=== PATIENT | female | born 1980 | race Caucasian/White ===

== ENCOUNTER 2016-09-26 18:58 | Emergency (ER) | payer BC, OTHER ==
[~2016-09-26] VITALS: Ht 172.7 cm; Wt 55.0 kg
[~2016-09-26 18:58] MED LIST: CITA20TA9 PO; HYDR-5688 PO; LEVAAER2 INH; MULTTAB58 PO; PRT40 PO; VLTG EXT
[2016-09-26 19:04] VITALS: TEMP 37; Ht 172.7 cm; Wt 55.0 kg
[2016-09-26] MEDS ORDERED: XYLOCAINE 1%/SOD BICARB 20 ML VIAL INFIL ONE (19:30)
[2016-09-26] MEDS ORDERED: BUPIVACAINE 0.5 % 5 MG/1 ML MPF 30ML VIAL INFIL ONE (19:30)
[2016-09-26] MEDS ORDERED: AMPICILLIN/SULBACTAM SOD INJ 3,000 MG in SODIUM CHLORIDE 0.9% 100ML 100 ML IV ONE (19:30)
[2016-09-26] MEDS ORDERED: MoRPHine SULFATE 4 MG/ML 1 ML CARP\\VIAL IV STA (19:35)
[2016-09-26 20:00] LABS: BUN/CREATININE RATIO 9.1 (10-20); CALCIUM 8.6 mg/dl (8.5-10.1); CREATININE 0.92 mg/dl (0.60-1.20); POTASSIUM 3.6 mmol/L (3.5-5.1)
[2016-09-26] MEDS ORDERED: CLB/200 PO (20:00)
--- NOTE | 2016-09-26 20:13 | EMERGENCY ROOM VISIT NOTE ---
ED Visit Note First contact with patient: 19:08 Patient evaluated with PA. Mild cellulitis noted proximal to the nailbed concerning for possible paronychia. Plan outpatient management with Augmentin thus far. Agree with plan for I&D and subsequent outpt tx doxycycline.
[2016-09-26 20:15] LABS: COMPLETE YES; EOSINOPHIL % 4.4 %; HEMATOCRIT 36.6 % (37-47); LYMPH ABS # 1.23 K/uL (1.2-3.4); LYMPHOCYTE % 37.7 %; MEAN CELL VOLUME 77.7 fL (80-100); MEAN CORPUSCULAR HEMOGLOBIN 27.6 pg (25-34); MEAN CORPUSCULAR HGB CONC 35.5 g/dl (32-36); MEAN PLATELET VOLUME 10.5 fL (7.4-10.4); NEUTROPHILS % 37.7 %; PLATELET COUNT 86 K/uL (130-400); RED BLOOD COUNT 4.71 M/uL (4.2-5.4); VARIANT LYM ABS # 0.52 K/uL; VARIANT LYMPHOCYTE % 15.8 %; WHITE BLOOD COUNT 3.27 K/uL (4.8-10.8)
--- NOTE | 2016-09-26 20:23 | EMERGENCY ROOM VISIT NOTE ---
History First contact with patient: 19:08 Chief Complaint: WOUND INFECTION Stated Complaint: SEVERE PAIN IN L BIG TOE Nursing Triage Summary: Pt reports left great toe pain, redness and discharge. Pt states she has been taking Augmentin x 6 days. Pt denies red streaks. Denies fever/chills "more than normal". Pt reports hx of Crohn's, has an ostomy. History of Present Illness The patient is a 36 year old female who presents to the Emergency Room with complaints of an infection in her left great toe. The patient states that the toe has been "bad for a while." She states that she saw her primary care provider one week ago for redness in the toe and he started her on Augmentin. She states that the pain increased today and she noticed that the toe was more swollen than normal. She did call a shelter case manager today, but was unable to make an appointment for today, so she came here for evaluation. She rates her current discomfort a 10/10. She does report there has been a small amount of puslike drainage from the toe. She denies any fevers or red streaking up the foot or leg. Review of Systems A complete 10-point Review of Systems was discussed with the patient, with pertinent positives and negatives listed in the History of Present Illness. All remaining Review of Systems questions can be considered negative unless otherwise specified. Past Medical/Surgical History Medical Problems: (1) Colorectal cancer (2) Crohn's colitis (3) Endometriosis (4) Fibromyalgia (5) Ileostomy in place (6) Ileostomy in place (7) Migraine (8) Raynauds disease Surgical Problems: (1) H/O colonoscopy (2) H/O esophagogastroduodenoscopy (3) H/O laparoscopy (4) H/O total colectomy Family History Diabetes mellitus FH: depression FH: heart disease FHx: cancer FHx: gallbladder disease Hypertension Social History Smoking Status: Never Smoker Alcohol Use: occasionally Drug Use: none Marital Status: Occupation Status: disabled Current/Historical Medications Scheduled Amoxicillin & Pot Clavulanate (Augmentin Xr), 2 TABS PO DAILY Celecoxib (CeleBREX), 200 MG PO BID Doxycycline Hyclate (Vibramycin), 100 MG PO BID Fluoxetine Hcl (Prozac), 20 MG PO HS Fluticasone Propionate (Nasal) (Flonase Allergy Relief ), 2 SPRAYS ROSARIO DAILY Levalbuterol Tartrate (Levalbuterol Tartrate Hfa), 2 PUFF INH Q6H Montelukast Sodium (Singulair), 10 MG PO DAILY Multiple Vitamins W/ Minerals (Airborne Gummies), 3 TABS PO UD Pantoprazole (Protonix), 40 MG PO BID Pentosan Polysulfate Sodium (Elmiron), 300 MG PO BID Pseudoephedrine-Guaifenesin (Mucinex D), 1 TAB PO BID Topiramate (Topamax), 100 MG PO BID Scheduled PRN Acetaminophen-Caffeine (Excedrin Tension Headache), 1 TAB PO UD PRN for Headache Baclofen (Lioresal), 10 MG PO TID PRN for Hiccups Levalbuterol Tartrate (Levalbuterol Tartrate Hfa), 2 PUFFS INH UD PRN for Asthma Symptoms Lorazepam (Ativan), 0.5 MG PO TID PRN for Anxiety Morphine Sulfate (Morphine Sulfate Ir), 15 MG PO Q8 PRN for Pain Prochlorperazine Maleate (Compazine), 10 MG PO TID PRN for Nausea Allergies Coded Allergies: Clarithromycin (Verified Allergy, Severe, breathing problems, 04/02/16) Hydromorphone (Verified Allergy, Intermediate, RASH, 04/02/16) pt sasy she is allergic Ondansetron (Verified Allergy, Intermediate, itching, 04/02/16) Peanut (Verified Allergy, Intermediate, Rash and itchiness, 09/26/16) Hydroxyzine (Verified Allergy, Mild, itching, 04/02/16) Adhesives (Verified Allergy, Unknown, itching, swelling, 04/02/16) Albuterol (Verified Allergy, Unknown, rash, 04/02/16) BEE STING (Unverified Allergy, Unknown, anaphylaxis, 04/02/16) Latex (Verified Allergy, Unknown, itching, swelling, 04/02/16) Oxycodone (Verified Allergy, Unknown, itching, 04/02/16) Barium Sulfate (Verified Adverse Reaction, Unknown, diarrhea, 04/02/16) Lobster (Verified Adverse Reaction, Unknown, nausea, diarrhea, 04/02/16) Pregabalin (Verified Adverse Reaction, Unknown, delusions, 04/02/16) Uncoded Allergies: SPLENDA (Allergy, Unknown, Nausea/Vomiting, 09/26/16) Physical Exam Vital Signs Date Time Temp Pulse Resp B/P Pulse Ox O2 Delivery O2 Flow Rate FiO2 09/26/16 20:35 88 18 101/73 99 Room Air 09/26/16 19:04 37.0 100 18 99/75 97 Room Air Physical Exam VITALS: Vitals are noted on the nurse's note and reviewed by myself. Vital signs stable. GENERAL: This is a 36-year-old female, in no acute distress, nondiaphoretic, well-developed well-nourished. HEART: Regular rate and rhythm without murmurs gallops or rubs. LUNGS: Clear to auscultation bilaterally without wheezes, rales or rhonchi. EXTREMITIES: There is an area of fluctuance and erythema just proximal to the left great toenail. It is very tender to touch. No lymphangitic streaking. NEURO: Patient was alert and oriented to person place and time. Normal sensation to light and sharp touch. Medical Decision & Procedures Laboratory Results 09/26/16 19:38 Red Blood Count 4.71, Mean Corpuscular Volume 77.7, Mean Corpuscular Hemoglobin 27.6, Mean Corpuscular Hemoglobin Concent 35.5, Mean Platelet Volume 10.5 09/26/16 19:38 Test 09/26/16 19:38 White Blood Count 3.27 K/uL (4.8-10.8) Red Blood Count 4.71 M/uL (4.2-5.4) Hemoglobin 13.0 g/dL (12.0-16.0) Hematocrit 36.6 % (37-47) Mean Corpuscular Volume 77.7 fL (80-100) Mean Corpuscular Hemoglobin 27.6 pg (25-34) Mean Corpuscular Hemoglobin Concent 35.5 g/dl (32-36) Platelet Count 86 K/uL (130-400) Mean Platelet Volume 10.5 fL (7.4-10.4) RDW Standard Deviation 39.0 fL (36.4-46.3) RDW Coefficient of Variation 13.7 % (11.5-14.5) Neutrophils % (Manual) 37.7 % Lymphocytes % (Manual) 37.7 % Variant Lymphocytes % (manual) 15.8 % Monocytes % (Manual) 4.4 % Eosinophils % (Manual) 4.4 % Neutrophils # (Manual) 1.23 K/uL (1.4-6.5) Total Absolute Neutrophils 1.23 K/uL (1.4-6.5) Lymphocytes # (Manual) 1.23 K/uL (1.2-3.4) Absolute Variant Lymphocytes 0.52 K/uL Total Absolute Lymphocytes 1.75 K/uL (1.2-3.4) Monocytes # (Manual) 0.14 K/uL (0.11-0.59) Eosinophils # (Manual) 0.14 K/uL (0-0.5) Red Blood Cell Morphology Unremarkable Anion Gap 10.0 mmol/L (3-11) Est Creatinine Clear Calc Drug Dose 72.7 ml/min Estimated GFR () 92.2 Estimated GFR (Non- 79.5 BUN/Creatinine Ratio 9.1 (10-20) Calcium Level 8.6 mg/dl (8.5-10.1) Medications Administered Medications (Trade) Dose Ordered Sig/Tamar Route Start Time Stop Time Status Last Admin Dose Admin Ampicillin Sodium/ Sulbactam Sodium/ Sodium Chloride (Unasyn Inj/Nss 100ml) 108 ml @ 200 mls/hr ONE ONCE IV 09/26/16 19:30 09/26/16 20:02 DC 09/26/16 19:49 200 MLS/HR Morphine Sulfate (MoRPHine SULFATE INJ) 4 mg NOW STAT IV 09/26/16 19:35 09/26/16 19:37 DC 09/26/16 19:50 4 MG Doxycycline Hyclate (Vibramycin Cap) 100 mg ONE ONCE PO 09/26/16 20:30 09/26/16 20:31 DC 09/26/16 20:35 100 MG Procedure Verbal consent was obtained to perform the procedure. 6 mL of a 1-1 solution of Marcaine and 1% buffered lidocaine were used to perform a digital block of the left great toe. The area of fluctuance of the toe with cleaned with Betadine. An 11 blade was then used to make a 1 cm incision to drain the paronychia. A small amount of white pus was expressed and a culture was obtained. More was expressed with pressure until all of the pus was relieved. The area was thoroughly cleaned with sterile saline. The area was then dressed with bacitracin and a bandage. The patient tolerated the procedure well. Medical Decision Differential diagnosis includes paronychia, ingrown toenail, among others. The patient was evaluated as above. She was given 4 mg morphine IV for pain. She has a paronychia of the left great toe. She has been taking Augmentin as an outpatient with no relief. Incision and drainage was performed as noted in the procedure section. Culture is pending. She was given one dose of Unison here but will be switched to doxycycline as an outpatient at Dr Vernon's recommendation. She will follow-up with a protracted as for further evaluation. She verbalized understanding and was discharged home in good condition. The patient was independently evaluated by Dr. Vernon, ED attending physician, who agreed with my assessment and treatment plan. Impression Primary Impression: Paronychia of toe of left foot Departure Information Dispostion Home / Self-Care Condition GOOD Prescriptions Levalbuterol Tartrate (Levalbuterol Tartrate Hfa) 45 Mcg/Act Aer 2 PUFF INH Q6H, #1 INHALER Prov: Michelle Wallace PA-C 09/26/16 Doxycycline Hyclate (VIBRAMYCIN) 100 Mg Cap 100 MG PO BID for 10 Days, #20 CAP Prov: Michelle Wallace .SAUL 09/26/16 Referrals Bao Farrell M.D. (PCP) Patient Instructions My [facility] Additional Instructions You were prescribed doxycycline to be taken twice daily as prescribed. This is an antibiotic. All antibiotics have the potential to cause diarrhea. Stop this medication and contact a medical provider if you were to develop any significant adverse side effects including: wheezing, shortness of breath, passing out, vomiting, or a diffuse rash. Always take antibiotics as directed and COMPLETE the ENTIRE course regardless of the improvement of your symptoms. For pain control, you can use the following [id number] medicines (if >12 yo): - Regular strength (325mg/tab) Tylenol (acetaminophen) 2 tabs every 4-6 hours as needed. Do not exceed 12 tablets in a 24 hour period. Avoid taking more than 4 grams (4000 mg) of Tylenol per day. This includes any other sources of acetaminophen you may take on a regular basis. - Regular strength (200 mg/tab) Advil (ibuprofen) 1-2 tabs every 4-6 hours as needed. Do not exceed a dose of 3200 mg per day. Follow-up with your primary care provider for further evaluation. Return to the emergency department with worsening pain, fevers, streaking up the leg or any other new/concerning symptoms.
[2016-09-26] MEDS ORDERED: AGMXR/1000 PO (20:26)
[2016-09-26] MEDS ORDERED: DOXYCYCLINE HYCLATE 100 MG CAP PO ONE (20:30)
[2016-09-26 20:35] VITALS: BP 101/73; PULSE 88; O2SAT 99
[2016-09-26] MEDS ORDERED: DOXY100C PO (20:35)
[2016-09-26] MEDS ORDERED: LEVA45AE INH (20:42)
[2017-01-03] MEDS ORDERED: LCTX PO (13:59)
[2017-01-03] MEDS ORDERED: MAGIC1 PO (13:59)
[2017-01-03] MEDS ORDERED: LVQ250 PO (13:59)
[2017-04-01] MEDS ORDERED: LDDP5 EX (19:50)
[2017-04-16] MEDS ORDERED: PENT100C6 PO (01:35)
[2017-04-16] MEDS ORDERED: MONT1TAB3 PO (01:36)
[2017-04-16] MEDS ORDERED: TOPI100T20 PO (01:38)
[2017-04-16] MEDS ORDERED: BUDE3CAP14 PO (13:05)
[2017-04-16] MEDS ORDERED: LORA-741 PO (14:00)
[2017-04-16] MEDS ORDERED: CLR10 PO (16:58)
[2017-04-16] MEDS ORDERED: FLUO40CA8 PO (16:58)
[2017-04-16] MEDS ORDERED: FLUT1SPR12 NAE (18:48)
[2017-04-16] MEDS ORDERED: ACETTAB14 PO (18:52)
[2017-04-16] MEDS ORDERED: BACL1TAB PO (18:52)
[2017-04-16] MEDS ORDERED: FLUO20CA34 PO (20:26)
[2017-04-16] MEDS ORDERED: PROC1TAB5 PO (20:26)
[2017-04-16] MEDS ORDERED: PANT1TAB48 PO (20:26)
[2017-04-16] MEDS ORDERED: MORP15TA PO (20:26)
[2017-04-16] MEDS ORDERED: LEVA45AE INH (20:30)
[2017-04-19] MEDS ORDERED: DFL100 PO (17:19)
[2017-04-19] MEDS ORDERED: RCPAV1 IV (17:19)
== END 2016-09-26 20:45 | disposition home or self-care (01) ==
LOC: C.EDB 18:59 → C.EDD 20:45
DX: L03.032 Cellulitis of left toe (principal); K50.90 Crohn's disease, unspecified, without complications; N80.9 Endometriosis, unspecified; M79.7 Fibromyalgia; Z93.2 Ileostomy status; G43.909 Migraine, unspecified, not intractable, without status migrainosus; I73.00 Raynaud's syndrome without gangrene; Z79.899 Other long term (current) drug therapy

== ENCOUNTER 2016-12-11 15:24 | Emergency (ER) | payer BC, OTHER ==
[~2016-12-11] VITALS: Ht 172.7 cm; Wt 49.8 kg
[~2016-12-11 15:24] MED LIST changes: +AGMXR/1000 PO; -CITA20TA9 PO; +CLB/200 PO; -HYDR-5688 PO; +LEVA45AE INH; -LEVAAER2 INH; -MULTTAB58 PO; -PRT40 PO; -VLTG EXT
[2016-12-11 15:43] VITALS: TEMP 36.8; Ht 172.7 cm; Wt 49.8 kg
[2016-12-11] MEDS ORDERED: SODIUM CHLORIDE 0.9% 1000ML 1,000 ML IV STA (16:16)
[2016-12-11] MEDS ORDERED: MoRPHine SULFATE 4 MG/ML 1 ML CARP\\VIAL IV STA ×2 (16:16→17:43)
[2016-12-11 16:46] LABS: HEMATOCRIT 43.3 % (37-47); MEAN CELL VOLUME 83.3 fL (80-100); MEAN CORPUSCULAR HEMOGLOBIN 27.7 pg (25-34); MEAN CORPUSCULAR HGB CONC 33.3 g/dl (32-36); WHITE BLOOD COUNT 4.06 K/uL (4.8-10.8)
--- NOTE | 2016-12-11 17:10 | DIAGNOSTIC IMAGING REPORT ---
PA CHEST RADIOGRAPH AND UPRIGHT AND SUPINE AP RADIOGRAPHS OF THE ABDOMEN CLINICAL HISTORY: Epigastric abdominal pain. COMPARISON STUDY: CT of the abdomen and pelvis April 02, [address] January 17, 2016. FINDINGS: Lung volumes are normal. No consolidation is identified and there is no evidence for pulmonary edema. No pneumothorax or pleural effusion is present. Cardiomediastinal silhouette is normal. There is no free air. There is mild dextroscoliosis of the lumbar spine. A right lower quadrant ostomy is noted. No dilated loops of bowel are identified by radiography. IMPRESSION: 1. No free air or radiographic evidence of a bowel obstruction. 2. No acute cardiopulmonary findings. Electronically signed by: Solomon Manriquez M.D. 12/11/2016 5:08 PM Dictated Date/Time: 12/11/2016 5:06 PM
[2016-12-11 17:11] LABS: URINE APPEARANCE CLOUDY (CLEAR); URINE BILIRUBIN NEG (NEG); URINE COLOR DK YELLOW; URINE EPITHELIAL CELL AUTO 0-5 /lpf (0-5); URINE NITRITE POS (NEG); UROBILINOGEN NEG (NEG); ZZUR CULT IF INDIC CLEAN CATCH YES
[2016-12-11 17:11] LABS: BUN/CREATININE RATIO 12.1 (10-20); CALCIUM 8.9 mg/dl (8.5-10.1); CREATININE 1.2 mg/dl (0.60-1.20); POTASSIUM 3.6 mmol/L (3.5-5.1)
[2016-12-11 17:14] LABS: ALB/GLOB RATIO 1.4 (0.9-2)
[2016-12-11 17:19] LABS: MANUAL MICROSCOPIC REQUIRED? NO; REVIEW REQ? NO
--- NOTE | 2016-12-11 17:37 | DIAGNOSTIC IMAGING REPORT ---
ABDOMINAL ULTRASOUND, RIGHT UPPER QUADRANT HISTORY: Epigastric abdominal pain.. COMPARISON: CT of the abdomen and pelvis April 02, 2016 and right upper quadrant ultrasound January 16, 2016. FINDINGS: There is no biliary ductal dilatation. There is possible slight coarsening of hepatic echotexture. There is no gallbladder wall thickening. No shadowing gallstones are identified. A nonmobile 5 m structure within the gallbladder is unchanged and suggests a polyp. The pancreatic body is normal. The head and tail are partially obscured. There is no right hydronephrosis. IMPRESSION: 1. No gallstones or biliary ductal dilatation. 2. No change in a suspected 5 mm gallbladder polyp. Electronically signed by: Solomon Manriquez M.D. 12/11/2016 5:35 PM Dictated Date/Time: 12/11/2016 5:33 PM
[2016-12-11 17:43] LABS: PLATELET COUNT 78 K/uL (130-400)
[2016-12-11] MEDS ORDERED: NITROFURANTOIN MONOHYDRATE 100 MG CAP PO ONE (17:45)
[2016-12-11 17:46] LABS: BASO % 0.5 %; BASO ABS # 0.02 K/uL (0-0.2); COMPLETE YES; EOS % 2.5 %; LYMPH % 41.1 %; LYMPH ABS # 1.67 K/uL (1.2-3.4); MEAN PLATELET VOLUME 10.2 fL (7.4-10.4); MONO % 6.4 %; NEUT % 49.5 %
[2016-12-11] MEDS ORDERED: NITR-5 PO (17:59)
--- NOTE | 2016-12-11 17:59 | EMERGENCY ROOM VISIT NOTE ---
History First contact with patient: 15:47 Chief Complaint: ABDOMINAL PAIN Stated Complaint: STOMACH PAIN, PAIN BEHIND STOMA Nursing Triage Summary: pt has a colostomy with hx of colon ca. pain worsening since saturday, with nausea and diarrhea History of Present Illness The patient is a 36 year old female who presents to the Emergency Department by private vehicle with multiple complaints. She reports a history of colectomy secondary to colon surgery. She has a history of chronic abdominal pain since. She takes oral morphine daily. She has been using her morphine, however her symptoms have not been improving. The pain is in the same location, only the intensity has worsened. She reports that she has had some watery diarrhea from her ostomy as well. In addition, the patient reports that she noticed blood with wiping. She reports no pain or burning with urination, however. She reports no significant history of urinary tract infections. The patient is had no fevers or chills. There is been no nausea or vomiting. She rates her current discomfort as an 8/10. She denies any chest pain, palpitations, short of breath, hematemesis, hematochezia or melena. Review of Systems A complete 10-point Review of Systems was discussed with the patient, with pertinent positives and negatives listed in the History of Present Illness. All remaining Review of Systems questions can be considered negative unless otherwise specified. Past Medical/Surgical History Medical Problems: (1) Colorectal cancer (2) Crohn's colitis (3) Endometriosis (4) Fibromyalgia (5) Ileostomy in place (6) Ileostomy in place (7) Migraine (8) Raynauds disease Surgical Problems: (1) H/O colonoscopy (2) H/O esophagogastroduodenoscopy (3) H/O laparoscopy (4) H/O total colectomy Family History Diabetes mellitus FH: depression FH: heart disease FHx: cancer FHx: gallbladder disease Hypertension Social History Smoking Status: Never Smoker Alcohol Use: occasionally Drug Use: none Marital Status: Occupation Status: disabled Current/Historical Medications Scheduled Fluoxetine (Prozac), 40 MG PO HS Fluoxetine Hcl (Prozac), 20 MG PO HS Fluticasone Propionate (Nasal) (Flonase Allergy Relief ), 2 SPRAYS ROSARIO DAILY Loratadine (Claritin), 10 MG PO DAILY Montelukast Sodium (Singulair), 10 MG PO DAILY Multiple Vitamins W/ Minerals (Airborne Gummies), 3 TABS PO UD Nitrofurantoin Monohyd Macrocr (Macrobid), 100 MG PO BID Pantoprazole (Protonix), 40 MG PO BID Pentosan Polysulfate Sodium (Elmiron), 300 MG PO BID Topiramate (Topamax), 100 MG PO BID Scheduled PRN Acetaminophen-Caffeine (Excedrin Tension Headache), 1 TAB PO UD PRN for Headache Baclofen (Lioresal), 10 MG PO TID PRN for Hiccups Levalbuterol Tartrate (Levalbuterol Tartrate Hfa), 2 PUFFS INH UD PRN for Asthma Symptoms Lorazepam (Ativan), 0.5 MG PO TID PRN for Anxiety Morphine Sulfate (Morphine Sulfate Ir), 15 MG PO Q8 PRN for Pain Prochlorperazine Maleate (Compazine), 10 MG PO TID PRN for Nausea Pseudoephedrine-Guaifenesin (Mucinex D), 1 TAB PO BID PRN for CONGESTION Allergies Coded Allergies: Clarithromycin (Verified Allergy, Severe, breathing problems, 12/11/16) Hydromorphone (Verified Allergy, Intermediate, RASH, 12/11/16) pt sasy she is allergic Ondansetron (Verified Allergy, Intermediate, itching, 12/11/16) Peanut (Verified Allergy, Intermediate, Rash and itchiness, 12/11/16) Hydroxyzine (Verified Allergy, Mild, itching, 12/11/16) Adhesives (Verified Allergy, Unknown, itching, swelling, 12/11/16) Albuterol (Verified Allergy, Unknown, rash, 12/11/16) BEE STING (Unverified Allergy, Unknown, anaphylaxis, 12/11/16) Latex (Verified Allergy, Unknown, itching, swelling, 12/11/16) Oxycodone (Verified Allergy, Unknown, itching, 12/11/16) Barium Sulfate (Verified Adverse Reaction, Unknown, diarrhea, 12/11/16) Lobster (Verified Adverse Reaction, Unknown, nausea, diarrhea, 12/11/16) Pregabalin (Verified Adverse Reaction, Unknown, delusions, 12/11/16) Uncoded Allergies: SPLENDA (Allergy, Unknown, Nausea/Vomiting, 09/26/16) Physical Exam Vital Signs Date Time Temp Pulse Resp B/P Pulse Ox O2 Delivery O2 Flow Rate FiO2 12/11/16 18:12 65 90/54 100 Room Air 12/11/16 15:43 36.8 72 16 107/73 97 Room Air Pain Rating (0-10): 8 Physical Exam VITAL SIGNS - Vital signs and nursing notes were reviewed. GENERAL - 36-year-old female appearing older than her stated age who is in no acute distress. Communicates well with provider and answers questions appropriately. LUNGS - Chest wall symmetric without accessory muscle use, intercostals retractions, or central cyanosis. Normal vesicular breath sounds CTA B/L. No wheezes, rales, or rhonchi appreciated. CARDIAC - RRR with S1/S2. No murmur, rubs, or gallops appreciated. ABDOMEN - Abdominal contour flat and without pulsations or visible masses. Ostomy site in place. BS distant all four quadrants. Mild tenderness to palpation appreciated in the epigastrium. No guarding. No Rebound Tenderness. Negative Rovsing's. Negative Randolph's. No palpable masses, hepatosplenomegaly, or ascites noted. PSYCH - A&Ox3 and cooperates fully with examiner. Pt is very pleasant and interacts well with examiner. Medical Decision & Procedures ER Provider Diagnostic Interpretation: Radiological imaging and reports were reviewed by myself. Radiologist's Interpretation as follows: PA CHEST RADIOGRAPH AND UPRIGHT AND SUPINE AP RADIOGRAPHS OF THE ABDOMEN CLINICAL HISTORY: Epigastric abdominal pain. COMPARISON STUDY: CT of the abdomen and pelvis April 02, [address] January 17, 2016. FINDINGS: Lung volumes are normal. No consolidation is identified and there is no evidence for pulmonary edema. No pneumothorax or pleural effusion is present. Cardiomediastinal silhouette is normal. There is no free air. There is mild dextroscoliosis of the lumbar spine. A right lower quadrant ostomy is noted. No dilated loops of bowel are identified by radiography. IMPRESSION: 1. No free air or radiographic evidence of a bowel obstruction. 2. No acute cardiopulmonary findings. ABDOMINAL ULTRASOUND, RIGHT UPPER QUADRANT HISTORY: Epigastric abdominal pain.. COMPARISON: CT of the abdomen and pelvis April 02, 2016 and right upper quadrant ultrasound January 16, 2016. FINDINGS: There is no biliary ductal dilatation. There is possible slight coarsening of hepatic echotexture. There is no gallbladder wall thickening. No shadowing gallstones are identified. A nonmobile 5 m structure within the gallbladder is unchanged and suggests a polyp. The pancreatic body is normal. The head and tail are partially obscured. There is no right hydronephrosis. IMPRESSION: 1. No gallstones or biliary ductal dilatation. 2. No change in a suspected 5 mm gallbladder polyp. Laboratory Results 12/11/16 16:12 Red Blood Count 5.20, Mean Corpuscular Volume 83.3, Mean Corpuscular Hemoglobin 27.7, Mean Corpuscular Hemoglobin Concent 33.3, Mean Platelet Volume 10.2, Neutrophils (%) (Auto) 49.5, Lymphocytes (%) (Auto) 41.1, Monocytes (%) (Auto) 6.4, Eosinophils (%) (Auto) 2.5, Basophils (%) (Auto) 0.5, Neutrophils # (Auto) 2.01, Lymphocytes # (Auto) 1.67, Monocytes # (Auto) 0.26, Eosinophils # (Auto) 0.10, Basophils # (Auto) 0.02 12/11/16 16:12 Test 12/11/16 16:12 12/11/16 16:30 White Blood Count 4.06 K/uL (4.8-10.8) Red Blood Count 5.20 M/uL (4.2-5.4) Hemoglobin 14.4 g/dL (12.0-16.0) Hematocrit 43.3 % (37-47) Mean Corpuscular Volume 83.3 fL (80-100) Mean Corpuscular Hemoglobin 27.7 pg (25-34) Mean Corpuscular Hemoglobin Concent 33.3 g/dl (32-36) Platelet Count 78 K/uL (130-400) Mean Platelet Volume 10.2 fL (7.4-10.4) Neutrophils (%) (Auto) 49.5 % Lymphocytes (%) (Auto) 41.1 % Monocytes (%) (Auto) 6.4 % Eosinophils (%) (Auto) 2.5 % Basophils (%) (Auto) 0.5 % Neutrophils # (Auto) 2.01 K/uL (1.4-6.5) Lymphocytes # (Auto) 1.67 K/uL (1.2-3.4) Monocytes # (Auto) 0.26 K/uL (0.11-0.59) Eosinophils # (Auto) 0.10 K/uL (0-0.5) Basophils # (Auto) 0.02 K/uL (0-0.2) RDW Standard Deviation 45.4 fL (36.4-46.3) RDW Coefficient of Variation 14.8 % (11.5-14.5) Immature Granulocyte % (Auto) 0.0 % Immature Granulocyte # (Auto) 0.00 K/uL (0.00-0.02) Red Blood Cell Morphology Unremarkable Anion Gap 8.0 mmol/L (3-11) Est Creatinine Clear Calc Drug Dose 50.5 ml/min Estimated GFR () 66.9 Estimated GFR (Non- 57.7 BUN/Creatinine Ratio 12.1 (10-20) Calcium Level 8.9 mg/dl (8.5-10.1) Total Bilirubin 0.6 mg/dl (0.2-1) Aspartate Amino Transf (AST/SGOT) 14 U/L (15-37) Alanine Aminotransferase (ALT/SGPT) 42 U/L (12-78) Alkaline Phosphatase 122 U/L (45-117) Total Protein 7.3 gm/dl (6.4-8.2) Albumin 4.3 gm/dl (3.4-5.0) Globulin 3.0 gm/dl (2.5-4.0) Albumin/Globulin Ratio 1.4 (0.9-2) Lipase 238 U/L (73-393) Urine Color DK YELLOW Urine Appearance CLOUDY (CLEAR) Urine pH 6.0 (4.5-7.5) Urine Specific [place] 1.010 (1.000-1.030) Urine Protein NEG (NEG) Urine Glucose (UA) NEG (NEG) Urine Ketones NEG (NEG) Urine Occult Blood 2+ (NEG) Urine Nitrite POS (NEG) Urine Bilirubin NEG (NEG) Urine Urobilinogen NEG (NEG) Urine Leukocyte Esterase LARGE (NEG) Urine WBC (Auto) >30 /hpf (0-5) Urine RBC (Auto) 0-4 /hpf (0-4) Urine Hyaline Casts (Auto) 1-5 /lpf (0-5) Urine Epithelial Cells (Auto) 0-5 /lpf (0-5) Urine Bacteria (Auto) 4+ (NEG) Date/Time Source Procedure Growth Status 12/11/16 18:10 Stool C.difficile Toxin B Gene (PCR) - Final No C. difficile toxin B gene detected Complete Medications Administered Medications (Trade) Dose Ordered Sig/Tamar Route Start Time Stop Time Status Last Admin Dose Admin Sodium Chloride (Nss 1000ml) 1,000 ml @ 250 mls/hr Q4H STAT IV 12/11/16 16:16 12/11/16 18:52 DC 12/11/16 16:32 250 MLS/HR Morphine Sulfate (MoRPHine SULFATE INJ) 4 mg NOW STAT IV 12/11/16 16:16 12/11/16 16:18 DC 12/11/16 16:32 4 MG Nitrofurantoin Macrocrystals (Macrobid Cap) 100 mg ONE ONCE PO 12/11/16 17:45 12/11/16 17:46 DC 12/11/16 18:14 100 MG Morphine Sulfate (MoRPHine SULFATE INJ) 4 mg NOW STAT IV 12/11/16 17:43 12/11/16 17:45 DC 12/11/16 18:18 4 MG ED Course Patient was seen and evaluated by myself. Previous emergency department visit notes were reviewed. Labs were drawn, saline lock in place. Urinalysis was obtained. Patient was treated with 4 mg morphine and hydrated with normal saline. X-ray and ultrasounds were obtained. Laboratory results demonstrate no acute leukocytosis, worrisome anemia, or bandemia. The patient has no significant electrolyte abnormalities. Urinalysis concerning for infection. On review previous cultures, the patient's Crohn out Escherichia coli which was sensitive to Macrobid. Laboratory results and imaging studies were reviewed with the patient who acknowledges understanding. She is requesting C. difficile test. She was provided this as well as an additional dose of morphine. She was educated on following up with her primary care provider from today's visit. She was educated on worrisome symptoms for return visit to the emergency department. Patient discharged home in good condition. Medical Decision Given the patient's presentation and stated complaint, I did elect to perform the above-mentioned workup. The patient has a complicated past medical history secondary to multiple surgeries. She has no fever or leukocytosis. Her exam is otherwise unremarkable. Her pain was adequately controlled the emergency department. Patient educated on today's laboratory studies and imaging findings. She was provided initial dose of morphine with complaints of pain. She requests C. difficile testing. Her stoma site was utilized for C. difficile testing which will be pending. She was provided initial dose of Macrobid. She'll follow-up with her primary care provider from today's visit. She will return to the emergency department for any changing or worsening symptoms. Patient discharged home afebrile and in good condition. In the evaluation and treatment of this patient, the following differential diagnoses were considered: UTI, pilonidal for this, hydronephrosis, bowel obstruction, cholecystitis, ascending cholangitis, choledocholithiasis, bowel perforation, amongst others. Impression Primary Impression: Abdominal pain Additional Impression: UTI (urinary tract infection) Departure Information Dispostion Home / Self-Care Condition GOOD Prescriptions Nitrofurantoin Monohyd Macrocr (Macrobid) 100 Mg Cap 100 MG PO BID for 5 Days, #10 CAP Prov: Checo Brito PA-C 12/11/16 Referrals Bao Farrell M.D. (PCP) Patient Instructions My [facility] Additional Instructions You have been treated in the Emergency Department for Abdominal Pain and a Urinary Tract Infection (UTI). You have been prescribed Macrobid to be taken as prescribed. This is an antibiotic. All antibiotics have the potential to cause diarrhea. Stop this medication and contact a medical provider if you were to develop any significant adverse side effects including: wheezing, shortness of breath, passing out, vomiting, or a diffuse rash. Always take antibiotics as directed and COMPLETE the ENTIRE course regardless of the improvement of your symptoms. Continue your pain medications as previously prescribed. Drink plenty of water and stay well hydrated. Follow-up with your primary care provider tomorrow for repeat abdominal exam. Return to the emergency department if your symptoms persist despite treatment plan outlined above or if the following symptoms occur: increased fevers, chills , low back pain, nausea/vomiting, or blood in your urine. Problem Qualifiers Primary Impression: Abdominal pain Abdominal location: upper abdomen, unspecified Qualified Codes: R10.10 - Upper abdominal pain, unspecified Additional Impression: UTI (urinary tract infection) Urinary tract infection type: acute cystitis Hematuria presence: with hematuria Qualified Codes: N30.01 - Acute cystitis with hematuria
[2016-12-11 18:12] VITALS: BP 90/54; PULSE 65; O2SAT 100
[2016-12-11] MEDS ORDERED: PSEU60TA80 PO (20:26)
[2016-12-11] MEDS ORDERED: MULT1CHW44 PO (20:30)
[2017-01-03] MEDS ORDERED: LCTX PO (13:59)
[2017-01-03] MEDS ORDERED: LVQ250 PO (13:59)
[2017-01-03] MEDS ORDERED: MAGIC1 PO (13:59)
[2017-04-01] MEDS ORDERED: LDDP5 EX (19:50)
[2017-04-16] MEDS ORDERED: ACETTAB15 PO (18:52)
[2017-04-19] MEDS ORDERED: DFL100 PO (17:19)
[2017-04-19] MEDS ORDERED: RCPAV1 IV (17:19)
[2017-06-04] MEDS ORDERED: PENT100C6 PO (01:35)
[2017-06-04] MEDS ORDERED: MONT1TAB3 PO (01:36)
[2017-06-04] MEDS ORDERED: TOPI100T20 PO (01:38)
[2017-06-04] MEDS ORDERED: BUDE1CAP6 PO (13:05)
[2017-06-04] MEDS ORDERED: LORA-741 PO (14:00)
[2017-06-04] MEDS ORDERED: CLR10 PO (16:58)
[2017-06-04] MEDS ORDERED: FLUO40CA8 PO (16:58)
[2017-06-04] MEDS ORDERED: FLUT1SPR12 NAE (18:48)
[2017-06-04] MEDS ORDERED: BACL1TAB PO (18:52)
[2017-06-04] MEDS ORDERED: PANT1TAB48 PO (20:26)
[2017-06-04] MEDS ORDERED: PROC1TAB5 PO (20:26)
[2017-06-04] MEDS ORDERED: MORP15TA PO (20:26)
[2017-06-04] MEDS ORDERED: FLUO20CA34 PO (20:26)
[2017-06-04] MEDS ORDERED: LEVA45AE INH (20:30)
== END 2016-12-11 18:49 | disposition home or self-care (01) ==
LOC: C.EDB 15:25
DX: R10.9 Unspecified abdominal pain (principal); N39.0 Urinary tract infection, site not specified; K50.90 Crohn's disease, unspecified, without complications; Z93.2 Ileostomy status; Z98.890 Other specified postprocedural states; Z83.3 Family history of diabetes mellitus; Z81.8 Family history of other mental and behavioral disorders; Z82.49 Family history of ischemic heart disease and other diseases of the circulatory system; Z80.9 Family history of malignant neoplasm, unspecified; Z83.79 Family history of other diseases of the digestive system

== ENCOUNTER 2016-12-23 21:44 | Emergency (ER) | payer BC, OTHER ==
[~2016-12-23] VITALS: Ht 172.7 cm; Wt 50.9 kg
[~2016-12-23 21:44] MED LIST changes: -AGMXR/1000 PO; -CLB/200 PO; -LEVA45AE INH; +MULT1CHW44 PO; +PSEU60TA80 PO
[2016-12-23 21:47] VITALS: Ht 172.7 cm; Wt 50.9 kg
[2016-12-23] MEDS ORDERED: DiphenhydrAMINE HCL 50 MG/ML VIAL IV STA (22:12)
[2016-12-23] MEDS ORDERED: KETOROLAC TROMETHAMINE 30 MG/ML VIAL IV STA (22:12)
[2016-12-23] MEDS ORDERED: SODIUM CHLORIDE 0.9% 1000ML 1,000 ML IV ONE (22:15)
[2016-12-23] MEDS ORDERED: NITR-5 PO (22:18)
[2016-12-23 22:42] LABS: HEMATOCRIT 38.8 % (37-47); MEAN CELL VOLUME 81.5 fL (80-100); MEAN CORPUSCULAR HEMOGLOBIN 27.3 pg (25-34); MEAN CORPUSCULAR HGB CONC 33.5 g/dl (32-36); RED BLOOD COUNT 4.76 M/uL (4.2-5.4); WHITE BLOOD COUNT 3.59 K/uL (4.8-10.8)
[2016-12-23 22:53] LABS: MEAN PLATELET VOLUME 9.3 fL (7.4-10.4); PLATELET COUNT 70 K/uL (130-400)
[2016-12-23 23:00] LABS: BUN/CREATININE RATIO 16.7 (10-20); CREATININE 0.97 mg/dl (0.60-1.20); POTASSIUM 3.9 mmol/L (3.5-5.1)
[2016-12-23 23:03] LABS: ALB/GLOB RATIO 1.8 (0.9-2)
[2016-12-23 23:10] LABS: CALCIUM 8.7 mg/dl (8.5-10.1)
[2016-12-23 23:12] LABS: BASO % 0.3 %; BASO ABS # 0.01 K/uL (0-0.2); COMPLETE YES; EOS % 2.2 %; IG% 0.3 %; MONO % 7.5 %; NEUT % 50.7 %
[2016-12-23 23:29] LABS: URINE APPEARANCE CLEAR (CLEAR); URINE BILIRUBIN NEG (NEG); URINE COLOR ORANGE; URINE NITRITE NEG (NEG); URINE PH 6.5 (4.5-7.5); URINE SPECIFIC GRAVITY 1.008 (1.000-1.030); UROBILINOGEN NEG (NEG); ZZUR CULT IF INDIC CLEAN CATCH NO
[2016-12-23 23:36] LABS: MANUAL MICROSCOPIC REQUIRED? NO; REVIEW REQ? NO
[2016-12-24 00:06] LABS: BENZODIAZEPINE, URINE NEG (NEG); COCAINE,URINE NEG (NEG); PHENCYCLIDINE, URINE NEG (NEG)
[2016-12-24 01:44] VITALS: BP 87/57; PULSE 75; TEMP 36.6; O2SAT 97
--- NOTE | 2016-12-24 02:42 | EMERGENCY ROOM VISIT NOTE ---
ED Visit Note First contact with patient: 21:51 I have personally evaluated and examined this patient. I agree with assessment and plan of Danny Franklin PA-C.
--- NOTE | 2016-12-24 04:44 | EMERGENCY ROOM VISIT NOTE ---
History First contact with patient: 21:51 Chief Complaint: ABDOMINAL PAIN Stated Complaint: SEVERE STOMACH PAIN, BACK PAIN, OSTOMY PROBLEMS Nursing Triage Summary: pt complaint around stoma is sensative and is causing pain History of Present Illness The patient is a 36 year old female who presents to the Emergency Room with complaints of generalized abdominal pain for the past 6-7 days. The patient states that most of her discomfort is around her stoma in the right lower quadrant. The patient has a history of Crohn's disease with colectomy. She has been eating and drinking as normal. She recently completed Macrobid for a UTI. The patient is concerned about C. difficile. She has not had significant increased output from her ostomy, but does complain of itching in the area. She takes oral morphine on a daily basis at home, and states this has not relieved her symptoms. She rates her current discomfort a 7/10. Review of Systems More than 10 systems were reviewed and otherwise negative with the exception of history of present illness. Past Medical/Surgical History Medical Problems: (1) Colorectal cancer (2) Crohn's colitis (3) Endometriosis (4) Fibromyalgia (5) Ileostomy in place (6) Ileostomy in place (7) Migraine (8) Raynauds disease Surgical Problems: (1) H/O colonoscopy (2) H/O esophagogastroduodenoscopy (3) H/O laparoscopy (4) H/O total colectomy Family History Diabetes mellitus FH: depression FH: heart disease FHx: cancer FHx: gallbladder disease Hypertension Social History Smoking Status: Never Smoker Alcohol Use: occasionally Drug Use: none Marital Status: Occupation Status: disabled Current/Historical Medications Scheduled Fluoxetine (Prozac), 40 MG PO HS Fluoxetine Hcl (Prozac), 20 MG PO HS Fluticasone Propionate (Nasal) (Flonase Allergy Relief ), 2 SPRAYS ROSARIO DAILY Loratadine (Claritin), 10 MG PO DAILY Montelukast Sodium (Singulair), 10 MG PO DAILY Multivitamin (Multivitamin), 1 TAB PO DAILY Nitrofurantoin Monohyd Macrocr (Macrobid), 100 MG PO BID Pantoprazole (Protonix), 40 MG PO BID Pentosan Polysulfate Sodium (Elmiron), 300 MG PO BID Topiramate (Topamax), 100 MG PO BID Scheduled PRN Acetaminophen-Caffeine (Excedrin Tension Headache), 1 TAB PO UD PRN for Headache Baclofen (Lioresal), 10 MG PO TID PRN for Hiccups Levalbuterol Tartrate (Levalbuterol Tartrate Hfa), 2 PUFFS INH UD PRN for Asthma Symptoms Lorazepam (Ativan), 0.5 MG PO TID PRN for Anxiety Metoclopramide (Reglan), 1 TAB PO TID PRN for HICCUPS Morphine Sulfate (Morphine Sulfate Ir), 30 MG PO Q8 PRN for Pain Prochlorperazine Maleate (Compazine), 10 MG PO TID PRN for Nausea Allergies Coded Allergies: Clarithromycin (Verified Allergy, Severe, breathing problems, 12/11/16) Hydromorphone (Verified Allergy, Intermediate, RASH, 12/11/16) pt sasy she is allergic Ondansetron (Verified Allergy, Intermediate, itching, 12/11/16) Peanut (Verified Allergy, Intermediate, Rash and itchiness, 12/11/16) Hydroxyzine (Verified Allergy, Mild, itching, 12/11/16) Adhesives (Verified Allergy, Unknown, itching, swelling, 12/11/16) Albuterol (Verified Allergy, Unknown, rash, 12/11/16) BEE STING (Unverified Allergy, Unknown, anaphylaxis, 12/11/16) Latex (Verified Allergy, Unknown, itching, swelling, 12/11/16) Oxycodone (Verified Allergy, Unknown, itching, 12/11/16) Barium Sulfate (Verified Adverse Reaction, Unknown, diarrhea, 12/11/16) Lobster (Verified Adverse Reaction, Unknown, nausea, diarrhea, 12/11/16) Pregabalin (Verified Adverse Reaction, Unknown, delusions, 12/11/16) Uncoded Allergies: SPLENDA (Allergy, Unknown, Nausea/Vomiting, 09/26/16) Physical Exam Vital Signs Date Time Temp Pulse Resp B/P Pulse Ox O2 Delivery O2 Flow Rate FiO2 12/24/16 01:44 36.6 75 87/57 97 12/24/16 00:14 65 98/58 99 Room Air 12/23/16 21:47 36.8 78 18 123/79 100 Room Air Pain Rating (0-10): 0 Physical Exam VITALS: Vitals are noted on the nurse's note and reviewed by myself. Vital signs stable. GENERAL: Well-developed, well-nourished, white female, who is in no acute distress and resting comfortably. Patient is cooperative with the examination. HEAD: Normocephalic atraumatic. HEART: Regular rate and rhythm without murmurs gallops or rubs. LUNGS: Clear to auscultation bilaterally without wheezes, rales or rhonchi. No retractions or accessory muscle use. ABDOMEN: Positive normal bowel sounds x 4. Soft, nontender, without masses or organomegaly. No guarding or rebound tenderness. The ostomy appears well without obvious ulceration or gross infection. MUSCULOSKELETAL: No muscle atrophy, erythema, or edema noted. Full range of motion without joint tenderness in all extremities. Medical Decision & Procedures Laboratory Results 12/23/16 22:31 Red Blood Count 4.76, Mean Corpuscular Volume 81.5, Mean Corpuscular Hemoglobin 27.3, Mean Corpuscular Hemoglobin Concent 33.5, Mean Platelet Volume 9.3, Neutrophils (%) (Auto) 50.7, Lymphocytes (%) (Auto) 39.0, Monocytes (%) (Auto) 7.5, Eosinophils (%) (Auto) 2.2, Basophils (%) (Auto) 0.3, Neutrophils # (Auto) 1.82, Lymphocytes # (Auto) 1.40, Monocytes # (Auto) 0.27, Eosinophils # (Auto) 0.08, Basophils # (Auto) 0.01 12/23/16 22:31 Test 12/23/16 22:31 12/23/16 23:10 White Blood Count 3.59 K/uL (4.8-10.8) Red Blood Count 4.76 M/uL (4.2-5.4) Hemoglobin 13.0 g/dL (12.0-16.0) Hematocrit 38.8 % (37-47) Mean Corpuscular Volume 81.5 fL (80-100) Mean Corpuscular Hemoglobin 27.3 pg (25-34) Mean Corpuscular Hemoglobin Concent 33.5 g/dl (32-36) Platelet Count 70 K/uL (130-400) Mean Platelet Volume 9.3 fL (7.4-10.4) Neutrophils (%) (Auto) 50.7 % Lymphocytes (%) (Auto) 39.0 % Monocytes (%) (Auto) 7.5 % Eosinophils (%) (Auto) 2.2 % Basophils (%) (Auto) 0.3 % Neutrophils # (Auto) 1.82 K/uL (1.4-6.5) Lymphocytes # (Auto) 1.40 K/uL (1.2-3.4) Monocytes # (Auto) 0.27 K/uL (0.11-0.59) Eosinophils # (Auto) 0.08 K/uL (0-0.5) Basophils # (Auto) 0.01 K/uL (0-0.2) RDW Standard Deviation 42.7 fL (36.4-46.3) RDW Coefficient of Variation 14.3 % (11.5-14.5) Immature Granulocyte % (Auto) 0.3 % Immature Granulocyte # (Auto) 0.01 K/uL (0.00-0.02) Red Blood Cell Morphology Unremarkable Anion Gap 12.0 mmol/L (3-11) Est Creatinine Clear Calc Drug Dose 63.8 ml/min Estimated GFR () 86.5 Estimated GFR (Non- 74.6 BUN/Creatinine Ratio 16.7 (10-20) Calcium Level 8.7 mg/dl (8.5-10.1) Total Bilirubin 0.5 mg/dl (0.2-1) Aspartate Amino Transf (AST/SGOT) 30 U/L (15-37) Alanine Aminotransferase (ALT/SGPT) 62 U/L (12-78) Alkaline Phosphatase 118 U/L (45-117) Total Protein 6.2 gm/dl (6.4-8.2) Albumin 4.0 gm/dl (3.4-5.0) Globulin 2.2 gm/dl (2.5-4.0) Albumin/Globulin Ratio 1.8 (0.9-2) Lipase 480 U/L (73-393) Urine Color ORANGE Urine Appearance CLEAR (CLEAR) Urine pH 6.5 (4.5-7.5) Urine Specific [place] 1.008 (1.000-1.030) Urine Protein NEG (NEG) Urine Glucose (UA) NEG (NEG) Urine Ketones NEG (NEG) Urine Occult Blood NEG (NEG) Urine Nitrite NEG (NEG) Urine Bilirubin NEG (NEG) Urine Urobilinogen NEG (NEG) Urine Leukocyte Esterase NEG (NEG) Urine Test NEG (NEG) Urine Opiates Screen POS (NEG) Urine Methadone, Qualitative NEG (NEG) Urine Barbiturates NEG (NEG) Urine Phencyclidine (PCP) Level NEG (NEG) Ur Amphetamine/Methamphetamine NEG (NEG) MDMA (Ecstasy) Screen NEG (NEG) Urine Benzodiazepines Screen NEG (NEG) Urine Cocaine Metabolite NEG (NEG) Urine Marijuana (THC) NEG (NEG) Date/Time Source Procedure Growth Status 12/23/16 23:25 Stool C.difficile Toxin B Gene (PCR) - Final No C. difficile toxin B gene detected Complete Medications Administered Medications (Trade) Dose Ordered Sig/Tamar Route Start Time Stop Time Status Last Admin Dose Admin Sodium Chloride (Nss 1000ml) 1,000 ml @ 999 mls/hr Q1H1M ONCE IV 12/23/16 22:15 12/23/16 23:15 DC 12/23/16 22:15 999 MLS/HR Diphenhydramine HCl (Benadryl Inj) 25 mg NOW STAT IV 12/23/16 22:12 12/23/16 22:16 DC 12/23/16 22:57 25 MG Ketorolac Tromethamine (Toradol Inj) 30 mg NOW STAT IV 12/23/16 22:12 12/23/16 22:16 DC 12/23/16 22:57 30 MG ED Course Physical exam and history were performed. Nursing notes and EMR were reviewed. Patient appears to have reports of generalized abdominal pain for the past week. On examination the patient does not have reproducible tenderness on palpation. She does not appear toxic. IV access was established and labs were obtained. The patient was hydrated with normal saline and given 30 mg IV Toradol. She did complain of some itching around her stoma and was also given 25 mg IV Benadryl. Stool sample was collected and sent to the lab. Urine was also collected. The patient's blood work is as above and was reviewed. She does not have a significantly elevated white blood cell count or gross anemia. She does not have a significant electrolyte imbalance. Her lipase is very slightly elevated , and her transaminases are nondiagnostic. Her urine appears clean, and without signs of infection after completing her Macrobid prescription. She does have opioids in her system, which was expected as she is on daily morphine. C. difficile is negative with stool cultures pending. The case was discussed with my attending physician, Dr. Garcia, who also independently evaluated the patient. Based on the patient's essentially benign exam and workup, advanced imaging such as CT scan was not felt necessary. The patient has been seen previously with similar complaints, and her abdomen remains soft and nontender on repeat examination. The patient has significant pain medication at home, and will be asked to continue this. She is to follow with her PCP and GI for further care and management. Of note, at the time of discharge, the patient made comments to nursing that she was dissatisfied with her care as "they did nothing for me". This was brought to my attention after the patient had left the facility, and appears outside of my expectation for her visit. She was pleasant throughout her ER stay, and quite cooperative. I have concern regarding this, as the patient is coming from [place] to this facility, and this could represent some level of drug seeking. The patient did not seem to exhibit dissatisfaction to myself, but perhaps her care should be monitored in the future for similar episodes. The chart was completed utilizing [email or web address] Speech Voice Recognition Software. Grammatical errors, random word insertions, pronoun errors, and incomplete sentences are an occasional consequence of this system due to software limitations, ambient noise, and hardware issues. Any formal questions or concerns about the content, text, or information contained within the body of this dictation should be directly addressed to the provider for clarification. . Medical Decision Differential diagnosis: Etiologies such as appendicitis, diverticulitis, PUD, biliary pathology, UTI, pancreatitis, obstruction, mesenteric ischemia, aortic pathology, infections, inflammatory bowel disease, renal colic, as well as others were entertained. Impression Primary Impression: Abdominal pain Departure Information Dispostion Home / Self-Care Condition GOOD Forms Call Back Authorization, HOME CARE DOCUMENTATION FORM, IMPORTANT VISIT INFORMATION Patient Instructions My [facility] Additional Instructions You were seen and evaluated today on an emergency basis only. This is not a substitute for, or an effort to provide, complete comprehensive medical care. It is not possible to recognize and treat all injuries or illnesses in a single emergency department visit. For this reason it is recommended that you followup with your primary care physician for ongoing care and evaluation. Drink clear fluids and remain well hydrated. Continue your at-home medications as prescribed. You are welcome to return to the emergency department anytime with new, worsening, or concerning symptoms.
[2016-12-26 10:49] LABS: COD UR NEGATIVE NG/ML (CUTOFF=50); HYDROCOD UR NEGATIVE NG/ML (CUTOFF=50); HYDROMOR UR NEGATIVE NG/ML (CUTOFF=50); MORPHINE UR 4140 NG/ML (CUTOFF=50); NORHYDROCODONE CONF UR NEGATIVE NG/ML (CUTOFF=50); OXYMORPH UR NEGATIVE NG/ML (CUTOFF=50)
[2017-01-03] MEDS ORDERED: LVQ250 PO (13:59)
[2017-01-03] MEDS ORDERED: MAGIC1 PO (13:59)
[2017-01-03] MEDS ORDERED: LCTX PO (13:59)
[2017-04-01] MEDS ORDERED: LDDP5 EX (19:50)
[2017-04-16] MEDS ORDERED: ACETTAB15 PO (18:52)
[2017-04-19] MEDS ORDERED: DFL100 PO (17:19)
[2017-04-19] MEDS ORDERED: RCPAV1 IV (17:19)
[2017-06-04] MEDS ORDERED: PENT100C6 PO (01:35)
[2017-06-04] MEDS ORDERED: MONT1TAB3 PO (01:36)
[2017-06-04] MEDS ORDERED: TOPI100T20 PO (01:38)
[2017-06-04] MEDS ORDERED: BUDE1CAP6 PO (13:05)
[2017-06-04] MEDS ORDERED: LORA-741 PO (14:00)
[2017-06-04] MEDS ORDERED: FLUO40CA8 PO (16:58)
[2017-06-04] MEDS ORDERED: CLR10 PO (16:58)
[2017-06-04] MEDS ORDERED: FLUT1SPR12 NAE (18:48)
[2017-06-04] MEDS ORDERED: BACL1TAB PO (18:52)
[2017-06-04] MEDS ORDERED: MORP15TA PO (20:26)
[2017-06-04] MEDS ORDERED: FLUO20CA34 PO (20:26)
[2017-06-04] MEDS ORDERED: PANT1TAB48 PO (20:26)
[2017-06-04] MEDS ORDERED: PROC1TAB5 PO (20:26)
[2017-06-04] MEDS ORDERED: LEVA45AE INH (20:30)
== END 2016-12-24 01:45 | disposition home or self-care (01) ==
LOC: C.EDB 21:45 → C.EDC 12-24 01:45
DX: R10.84 Generalized abdominal pain (principal); K50.90 Crohn's disease, unspecified, without complications; N80.9 Endometriosis, unspecified; I73.00 Raynaud's syndrome without gangrene; Z93.2 Ileostomy status; Z79.899 Other long term (current) drug therapy; Z88.3 Allergy status to other anti-infective agents; Z88.5 Allergy status to narcotic agent; Z88.8 Allergy status to other drugs, medicaments and biological substances; Z91.010 Allergy to peanuts; Z91.018 Allergy to other foods; Z91.030 Bee allergy status; Z91.09 Other allergy status, other than to drugs and biological substances; Z83.3 Family history of diabetes mellitus; Z81.8 Family history of other mental and behavioral disorders; Z82.49 Family history of ischemic heart disease and other diseases of the circulatory system; Z80.9 Family history of malignant neoplasm, unspecified; Z83.79 Family history of other diseases of the digestive system

== ENCOUNTER 2016-12-26 17:49 | Inpatient (IN) | payer BC, OTHER ==
[~2016-12-26] VITALS: Ht 172.7 cm; Wt 61.2 kg
[~2016-12-26 17:49] MED LIST changes: -MULT1CHW44 PO; +NITR-5 PO; -PSEU60TA80 PO
[2016-12-26] MEDS ORDERED: ONDANSETRON INJ 2 MG/ML 2 ML VIAL IV STA ×2 (18:11→20:35)
[2016-12-26] MEDS ORDERED: MoRPHine SULFATE 10 MG/ML CARP/VIAL IV STA (18:11)
[2016-12-26] MEDS ORDERED: SODIUM CHLORIDE 0.9% 1000ML 1,000 ML IV STA (18:11)
[2016-12-26] MEDS ORDERED: OPTIRAY 320 IV PRN (18:30)
[2016-12-26] MEDS ORDERED: MoRPHine SULFATE 4 MG/ML 1 ML CARP\\VIAL ONE (18:41)
[2016-12-26 18:42] LABS: HEMATOCRIT 37.3 % (37-47); MEAN CELL VOLUME 83.1 fL (80-100); MEAN CORPUSCULAR HEMOGLOBIN 27.2 pg (25-34); MEAN CORPUSCULAR HGB CONC 32.7 g/dl (32-36); RED BLOOD COUNT 4.49 M/uL (4.2-5.4)
[2016-12-26] MEDS ORDERED: MoRPHine SULFATE 2 MG/ML CARP ONE (18:42)
[2016-12-26 19:01] LABS: BUN/CREATININE RATIO 7.9 (10-20); CALCIUM 8.5 mg/dl (8.5-10.1); CREATININE 0.97 mg/dl (0.60-1.20); POTASSIUM 3.9 mmol/L (3.5-5.1)
[2016-12-26 19:11] LABS: COMPLETE YES; EOSINOPHIL % 3.5 %; LYMPH ABS # 0.97 K/uL (1.2-3.4); LYMPHOCYTE % 27.8 %; MEAN PLATELET VOLUME 10.1 fL (7.4-10.4); PLATELET COUNT 67 K/uL (130-400); PLT ESTIMATE DECREASED; VARIANT LYM ABS # 0.43 K/uL; VARIANT LYMPHOCYTE % 12.2 %
--- NOTE | 2016-12-26 19:45 | DIAGNOSTIC IMAGING REPORT ---
ABDOMEN AND PELVIS CT WITH IV CONTRAST CT DOSE: 252.00 mGy.cm HISTORY: Pain abd pain TECHNIQUE: Multiaxial CT images of the abdomen and pelvis were performed following the use of intravenous contrast. COMPARISON STUDY: 04/02/2016 FINDINGS: Lung bases are clear. Liver is uniform throughout. Slightly progressive splenomegaly splenomegaly compared to the prior exam. Normal appearing kidneys. Findings consistent with a complete colectomy. Several mildly distended loops of small bowel within the soft tissue pelvic region. Possibility of adhesions is considered. An obstructing lesion is not appreciated. There is a right anterior abdominal ostomy showing no evidence for obstructive change.. IMPRESSION: 1. Slightly progressive splenomegaly compared to the prior exam. 2. Findings of a prior colectomy and right lower quadrant ileostomy. 3. Several slightly distended loops of small bowel within the soft tissue pelvic region. Possibility of adhesions must be a consideration, with no well-defined evidence for an obstructing mass. Electronically signed by: Ezekiel Beard M.D. 12/26/2016 7:44 PM Dictated Date/Time: 12/26/2016 7:41 PM
[2016-12-26 20:21] LABS: MANUAL MICROSCOPIC REQUIRED? NO; REVIEW REQ? NO; URINE APPEARANCE CLEAR (CLEAR); URINE BILIRUBIN NEG (NEG); URINE COLOR YELLOW; URINE EPITHELIAL CELL AUTO 0-5 /lpf (0-5); URINE NITRITE NEG (NEG); URINE PH 6.5 (4.5-7.5); URINE SPECIFIC GRAVITY 1.015 (1.000-1.030); UROBILINOGEN NEG (NEG); ZZURINE CULT IF INDIC CATH NO
[2016-12-26 20:22] LABS: PREG INTERNAL NEGATIVE QC NEG CLEAR BACKGROUND; PREG INTERNAL POSITIVE QC POS CONTROL LINE
[2016-12-26] MEDS ORDERED: SODIUM CHLORIDE 0.9% 500ML 500 ML IV STA (20:40)
--- NOTE | 2016-12-26 20:58 | EMERGENCY ROOM VISIT NOTE ---
History Report prepared by Carlo: Erica Rollins Under the Supervision of: Dr. Edmundo Arcos D.O. First contact with patient: 18:01 Chief Complaint: BACK PAIN Stated Complaint: SEVER STOMACH & BACK PAIN, OSTOMY ISSUES History of Present Illness The patient is a 36 year old female who presents to the Emergency Room with complaints of worsening mid to lower abdominal pain starting 3 days [employer]. The patient states that the stoma initially hurt and then around the ostomy. The patient states that it has worsened since she was seen 2 days ago at the ED. The patient currently rates the pain as a 8/10 in severity. She states she also has back pain that is worsened with twisting, turning and bending. The patient states that along with the pain she has diarrhea and empty her ostomy bag 6-8 times a day and the bag is full and normally she only empties the bag 3-4 times a day. The patient denies any nausea, vomiting, fevers, chest pain, or shortness of breath. She states that when she was seen 2 days ago she was on her last day of Macrobid which was her second round of antibiotics treating a urinary tract infection. The patient states that she has not had any burning or pain with urination. The patient states that she has history of colorectal cancer and had a complete removal of her colon and rectum. The patient states that she also had a history of Crohn's which is why she had her entire colon removed as well as the cancer. She denies having any chemotherapy or radiation for her cancer. The patient states that she also had a complete hysterectomy and appendectomy. She denies any history of a cholecystectomy. The denies any recent travel but states she did go hiking 2 weeks ago but denies drinking any water that could have been contaminated. Source of History: patient Onset: 3 days [employer] Position: abdomen Symptom Intensity: 8/10 Timing: worsening Associated Symptoms: + back pain (worse with twisting, turning, bending), + diarrhea, No SOB, No chest pain, No fevers, No nausea, No vomiting Note: Associated symptoms: emptying ostomy bag 6-8 times a day Patient denies pain or burning with urination. Review of Systems See HPI for pertinent positives & negatives. A total of 10 systems reviewed and were otherwise negative. Past Medical & Surgical Medical Problems: (1) Anxiety (2) Colorectal cancer (3) Crohn's colitis (4) Depression (5) Endometriosis (6) Fibromyalgia (7) History of iron deficiency anemia (8) Hypotension (9) Ileostomy in place (10) Interstitial cystitis (11) Migraine (12) Raynauds disease (13) SBO (small bowel obstruction) (14) Thrombocytopenia Surgical Problems: (1) H/O colonoscopy (2) H/O esophagogastroduodenoscopy (3) H/O laparoscopy (4) H/O total colectomy (5) S/P appendectomy (6) S/P hysterectomy Family History Diabetes mellitus FH: depression FH: heart disease FHx: cancer FHx: gallbladder disease Hypertension Social History Smoking Status: Never Smoker Alcohol Use: occasionally Drug Use: none Marital Status: Occupation Status: disabled Current/Historical Medications Scheduled Celecoxib (Celebrex), 400 MG PO BID Fluoxetine (Prozac), 40 MG PO HS Fluoxetine Hcl (Prozac), 20 MG PO HS Fluticasone Propionate (Nasal) (Flonase Allergy Relief Ch), 2 SPRAYS ROSARIO DAILY Loratadine (Claritin), 10 MG PO DAILY Montelukast Sodium (Singulair), 10 MG PO DAILY Pantoprazole (Protonix), 40 MG PO BID Pentosan Polysulfate Sodium (Elmiron), 300 MG PO BID Topiramate (Topamax), 100 MG PO BID Scheduled PRN Acetaminophen-Caffeine (Excedrin Tension Headache), 1 TAB PO UD PRN for Headache Baclofen (Lioresal), 10 MG PO TID PRN for Hiccups Levalbuterol Tartrate (Levalbuterol Tartrate Hfa), 2 PUFFS INH Q4 PRN for Wheezing Lorazepam (Ativan), 0.5 MG PO TID PRN for Anxiety Metoclopramide (Reglan), 1 TAB PO TID PRN for Hiccups Morphine Sulfate (Morphine Sulfate Ir), 30 MG PO Q8 PRN for Pain Phenazopyridine HCl (Pyridium), 200 MG PO TID PRN for Bladder pain Prochlorperazine Maleate (Compazine), 10 MG PO TID PRN for Nausea Allergies Coded Allergies: Clarithromycin (Verified Allergy, Severe, breathing problems, 12/11/16) Hydromorphone (Verified Allergy, Intermediate, RASH, 12/11/16) pt sasy she is allergic Ondansetron (Verified Allergy, Intermediate, itching, 12/11/16) Peanut (Verified Allergy, Intermediate, Rash and itchiness, 12/11/16) Hydroxyzine (Verified Allergy, Mild, itching, 12/11/16) Adhesives (Verified Allergy, Unknown, itching, swelling, 12/11/16) Albuterol (Verified Allergy, Unknown, rash, 12/11/16) BEE STING (Unverified Allergy, Unknown, anaphylaxis, 12/11/16) Latex (Verified Allergy, Unknown, itching, swelling, 12/11/16) Oxycodone (Verified Allergy, Unknown, itching, 12/11/16) Barium Sulfate (Verified Adverse Reaction, Unknown, diarrhea, 12/11/16) Lobster (Verified Adverse Reaction, Unknown, nausea, diarrhea, 12/11/16) Pregabalin (Verified Adverse Reaction, Unknown, delusions, 12/11/16) Uncoded Allergies: SPLENDA (Allergy, Unknown, Nausea/Vomiting, 09/26/16) Physical Exam Vital Signs Date Time Temp Pulse Resp B/P Pulse Ox O2 Delivery O2 Flow Rate FiO2 12/26/16 21:03 76 20 93/62 98 Room Air 12/26/16 19:42 75 20 82/50 99 Room Air 12/26/16 17:52 36.7 64 18 107/73 97 Room Air Physical Exam GENERAL: Sitting up in bed, alert, well appearing, well nourished, no distress, non-toxic EYE EXAM: normal conjunctiva OROPHARYNX: no exudate, no erythema, lips, buccal mucosa, and tongue normal and mucous membranes are moist NECK: supple, no nuchal rigidity, no adenopathy, non-tender LUNGS: Clear to auscultation. Normal chest wall mechanics HEART: no murmurs, S1 normal and S2 normal ABDOMEN: Ostomy located in right mid quadrant with quarter filled with stool which was pasty, minimal tenderness around ostomy, normo-active bowel sounds, no masses, no rebound or guarding. BACK: Back is symmetrical on inspection and there is no deformity, Mild tenderness in the right lower lumbar paraspinal region, no CVA tenderness. SKIN: no rashes and no bruising UPPER EXTREMITIES: upper extremities are grossly normal. LOWER EXTREMITIES: No pitting edema. NEURO EXAM: Normal sensorium, cranial nerves II-XII grossly intact, normal speech, no gross weakness of arms, no gross weakness of legs. Gross sensation intact. Medical Decision & Procedures ER Provider Diagnostic Interpretation: CT:Per my review, radiologist interpretation. ABDOMEN AND PELVIS CT WITH IV CONTRAST CT DOSE: 252.00 mGy.cm HISTORY: Pain abd pain TECHNIQUE: Multiaxial CT images of the abdomen and pelvis were performed following the use of intravenous contrast. COMPARISON STUDY: 04/02/2016 FINDINGS: Lung bases are clear. Liver is uniform throughout. Slightly progressive splenomegaly splenomegaly compared to the prior exam. Normal appearing kidneys. Findings consistent with a complete colectomy. Several mildly distended loops of small bowel within the soft tissue pelvic region. Possibility of adhesions is considered. An obstructing lesion is not appreciated. There is a right anterior abdominal ostomy showing no evidence for obstructive change.. IMPRESSION: 1. Slightly progressive splenomegaly compared to the prior exam. 2. Findings of a prior colectomy and right lower quadrant ileostomy. 3. Several slightly distended loops of small bowel within the soft tissue pelvic region. Possibility of adhesions must be a consideration, with no well-defined evidence for an obstructing mass. Electronically signed by: Ezekiel Beard M.D. 12/26/2016 7:44 PM Dictated Date/Time: 12/26/2016 7:41 PM Laboratory Results 12/26/16 18:35 Red Blood Count 4.49, Mean Corpuscular Volume 83.1, Mean Corpuscular Hemoglobin 27.2, Mean Corpuscular Hemoglobin Concent 32.7, Mean Platelet Volume 10.1 12/26/16 18:35 Test 12/26/16 18:35 12/26/16 19:52 White Blood Count 3.50 K/uL (4.8-10.8) Red Blood Count 4.49 M/uL (4.2-5.4) Hemoglobin 12.2 g/dL (12.0-16.0) Hematocrit 37.3 % (37-47) Mean Corpuscular Volume 83.1 fL (80-100) Mean Corpuscular Hemoglobin 27.2 pg (25-34) Mean Corpuscular Hemoglobin Concent 32.7 g/dl (32-36) Platelet Count 67 K/uL (130-400) Mean Platelet Volume 10.1 fL (7.4-10.4) RDW Standard Deviation 44.6 fL (36.4-46.3) RDW Coefficient of Variation 14.5 % (11.5-14.5) Neutrophils % (Manual) 53.0 % Lymphocytes % (Manual) 27.8 % Variant Lymphocytes % (manual) 12.2 % Monocytes % (Manual) 3.5 % Eosinophils % (Manual) 3.5 % Neutrophils # (Manual) 1.86 K/uL (1.4-6.5) Total Absolute Neutrophils 1.86 K/uL (1.4-6.5) Lymphocytes # (Manual) 0.97 K/uL (1.2-3.4) Absolute Variant Lymphocytes 0.43 K/uL Total Absolute Lymphocytes 1.40 K/uL (1.2-3.4) Monocytes # (Manual) 0.12 K/uL (0.11-0.59) Eosinophils # (Manual) 0.12 K/uL (0-0.5) Platelet Estimate DECREASED Anion Gap 9.0 mmol/L (3-11) Est Creatinine Clear Calc Drug Dose 88.5 ml/min Estimated GFR () 86.5 Estimated GFR (Non- 74.6 BUN/Creatinine Ratio 7.9 (10-20) Lactic Acid Level 1.1 mmol/L (0.4-2.0) Calcium Level 8.5 mg/dl (8.5-10.1) Total Bilirubin 0.5 mg/dl (0.2-1) Direct Bilirubin 0.2 mg/dl (0-0.2) Aspartate Amino Transf (AST/SGOT) 14 U/L (15-37) Alanine Aminotransferase (ALT/SGPT) 46 U/L (12-78) Alkaline Phosphatase 109 U/L (45-117) Total Protein 6.1 gm/dl (6.4-8.2) Albumin 3.6 gm/dl (3.4-5.0) Lipase 186 U/L (73-393) Urine Color YELLOW Urine Appearance CLEAR (CLEAR) Urine pH 6.5 (4.5-7.5) Urine Specific [place] 1.015 (1.000-1.030) Urine Protein NEG (NEG) Urine Glucose (UA) NEG (NEG) Urine Ketones NEG (NEG) Urine Occult Blood NEG (NEG) Urine Nitrite NEG (NEG) Urine Bilirubin NEG (NEG) Urine Urobilinogen NEG (NEG) Urine Leukocyte Esterase NEG (NEG) Urine WBC (Auto) 1-5 /hpf (0-5) Urine RBC (Auto) 0-4 /hpf (0-4) Urine Hyaline Casts (Auto) 0 /lpf (0-5) Urine Epithelial Cells (Auto) 0-5 /lpf (0-5) Urine Bacteria (Auto) NEG (NEG) Urine Test NEG (NEG) Laboratory results per my review. Medications Administered Medications (Trade) Dose Ordered Sig/Tamar Route Start Time Stop Time Status Last Admin Dose Admin Sodium Chloride (Nss 1000ml) 1,000 ml @ 999 mls/hr Q1H1M STAT IV 12/26/16 18:11 12/26/16 19:11 DC 12/26/16 18:45 999 MLS/HR Morphine Sulfate (MoRPHine SULFATE INJ) 4 mg STK-MED ONCE .ROUTE 12/26/16 18:41 12/26/16 18:42 DC 12/26/16 18:46 4 MG Morphine Sulfate 2 mg 2 mg STK-MED ONCE .ROUTE 12/26/16 18:42 12/26/16 18:43 DC 12/26/16 18:46 2 MG Sodium Chloride 500 ml @ 999 mls/hr Q31M STAT IV 12/26/16 20:40 12/26/16 21:10 DC 12/26/16 20:58 999 MLS/HR Sodium Chloride (Nss 1000ml) 1,000 ml @ 125 mls/hr Q8H IV 12/26/16 21:15 01/25/17 21:14 12/26/16 23:28 125 MLS/HR ECG Comparison ECG Date: ED Course ED COURSE: Vital signs were reviewed and showed normal The patients medical record was reviewed. Previous review of systolic pressure track from 80's to low 100. The above diagnostic studies were performed and reviewed. ED treatments and interventions as stated above. 1807: The patient was evaluated in room B5. A complete history and physical examination was performed. 1810: Ordered Zofran Inj 4 mg IV, Morphine Sulfate 6 mg IV, Sodium Chloride 1, 000 ml @ 999 mls/hr IV. 1919: I reevaluated the patient and she states that she is feeling much better. 2025: I discussed the case with Dr. Alcides Bradshaw Hospitalist. He agreed to evaluate the patient for further management and care. 2030: Upon reevaluation, the patient is resting comfortably.I discussed my findings with the patient and she understands and agrees with the treatment plan. 2039: Ordered Sodium Chloride 500 ml @ 999 mls/hr IV. Based on the patients age, coexisting illnesses, exam and lab findings the decision to treat as an inpatient was made.The patient remained stable while under my care.The patient will be evaluated for further management. Medical Decision Differential diagnoses includes but is not limited to gastritis, peptic ulcer disease, GERD, gallbladder disease, pancreatitis, small bowel obstruction, acute coronary syndrome, pericarditis, ischemic bowel, irritable bowel disease, irritable bowel syndrome, appendicitis, diverticulitis, malignancy, hernia, urinary tract infection, torsion, [/ectopic (if female)], perforation, trauma, infectious. Patient is a 36-year-old female who presents the ER for diffuse abdominal pain. She has had multiple previous abdominal surgeries which include and appendectomy, complete hysterectomy and complete colon resection. She notes that her pain has been worsening so she with nausea and increase ostomy outputs. CBC along with BMP shows a low CO2 of 20. Bilirubin all with LFTs and lipase is normal. Lactic acid was normal. UA and were normal. CT of the abdomen and pelvis shows dilated and distended small bowels favor this likely an early obstruction. Based on her symptoms she was given morphine and fluids. She is admitted to internal medicine for observation for possible possible early small bowel obstruction. She has no current vomiting and is still having large ostomy outputs on time of admission. Consults Time Called: 2019 Consulting Physician: Dr. Holli [facility] Returned Call: 2025 I discussed the case with Dr. Alcides Hernandez. He agreed to evaluate the patient for further management and care. Impression Primary Impression: Small bowel obstruction Additional Impressions: Abdominal pain increase ostomy output Scribe Attestation The scribe's documentation has been prepared under my direction and personally reviewed by me in its entirety. I confirm that the note above accurately reflects all work, treatment, procedures, and medical decision making performed by me. Departure Information Dispostion Being Evaluated By Hospitalist Referrals Bao Farrell M.D. (PCP) Patient Instructions My [facility] Problem Qualifiers Additional Impressions: Abdominal pain Abdominal location: unspecified location Qualified Codes: R10.9 - Unspecified abdominal pain
[2016-12-26] MEDS ORDERED: LEValbuterol HFA 15GM INHALER INH PRN (21:30)
[2016-12-26] MEDS ORDERED: PROCHLORPERAZINE MALEATE 10 MG TAB PO PRN (21:30)
[2016-12-26] MEDS ORDERED: KETOROLAC TROMETHAMINE 30 MG/ML VIAL IV ONE (21:45)
[2016-12-26] MEDS ORDERED: DiphenhydrAMINE HCL 50 MG/ML VIAL IV ONE (21:45)
[2016-12-26] MEDS ORDERED: PROCHLORPERAZINE INJ 10 MG in SYRINGE 8 ML IV STA (21:45)
--- NOTE | 2016-12-26 21:54 | History and Physical ---
History & Physical Date & Time of Service: December 26, 2016 at 21:25 Chief Complaint: Sever Stomach & Back Pain, Ostomy Issues Primary Care Physician: Bao Farrell M.D. History of Present Illness Source: patient, clinic records This is a 36 y/o female with PMH of colorectal CA and Crohn's disease s/p colectomy, and other problems listed below who presents to the ED for abdominal pain. Patient reports abdominal pain x 3 days around RLQ ileostomy site and suprapubic area. She reports increased stool output requiring emptying of ostomy bag 6-8 x per day while usually it fills 3-4x per day. No hematochezia or melena. She reports associated bloating, nausea, vomiting x 1 yesterday, chills, generalized weakness, fatigue. States she was eating normally at home. Today she developed migraine with visual aura which is similar to prior migraines. States the migraine is causing dizziness. She takes Excedrin migraine at home. States migraine cocktail helped on prior ER visit. She reports spontaneous bruising on her legs. Has occasional mild nose bleed (last episode 1 week ago) but no other bleeding. She finished Macrobid total of 10 day course for UTI with resolution of urinary symptoms. Denies fever, cough, wheezing, SOB, chest pain. Pt reports hx of hysterectomy, hx appendectomy, hx laparoscopy for endometriosis. No prior bowel obstruction. Past Medical/Surgical History Medical Problems: (1) Anxiety Status: Chronic (2) Colorectal cancer Status: Chronic (3) Crohn's colitis Status: Chronic (4) Depression Status: Chronic (5) Endometriosis Status: Chronic (6) Fibromyalgia Status: Chronic (7) History of iron deficiency anemia Status: Chronic (8) Ileostomy in place Status: Chronic (9) Interstitial cystitis Status: Chronic (10) Migraine Status: Chronic (11) Raynauds disease Status: Chronic (12) Thrombocytopenia Status: Chronic Surgical Problems: (1) H/O colonoscopy Status: Chronic (2) H/O esophagogastroduodenoscopy Status: Chronic (3) H/O laparoscopy Permanent Comment: biopsy for endometriosis Status: Chronic (4) H/O total colectomy Status: Resolved (5) S/P appendectomy Status: Chronic (6) S/P hysterectomy Status: Chronic Family History Diabetes mellitus FH: depression FH: heart disease FHx: cancer FHx: gallbladder disease Hypertension Social History Smoking Status: Never Smoker Alcohol Use: occasionally Drug Use: none Marital Status: Housing status: lives with significant other Occupational Status: disabled Allergies Coded Allergies: Clarithromycin (Verified Allergy, Severe, breathing problems, 12/11/16) Hydromorphone (Verified Allergy, Intermediate, RASH, 12/11/16) pt sasy she is allergic Ondansetron (Verified Allergy, Intermediate, itching, 12/11/16) Peanut (Verified Allergy, Intermediate, Rash and itchiness, 12/11/16) Hydroxyzine (Verified Allergy, Mild, itching, 12/11/16) Adhesives (Verified Allergy, Unknown, itching, swelling, 12/11/16) Albuterol (Verified Allergy, Unknown, rash, 12/11/16) BEE STING (Unverified Allergy, Unknown, anaphylaxis, 12/11/16) Latex (Verified Allergy, Unknown, itching, swelling, 12/11/16) Oxycodone (Verified Allergy, Unknown, itching, 12/11/16) Barium Sulfate (Verified Adverse Reaction, Unknown, diarrhea, 12/11/16) Lobster (Verified Adverse Reaction, Unknown, nausea, diarrhea, 12/11/16) Pregabalin (Verified Adverse Reaction, Unknown, delusions, 12/11/16) Uncoded Allergies: SPLENDA (Allergy, Unknown, Nausea/Vomiting, 09/26/16) Home Medications Scheduled Celecoxib (Celebrex), 400 MG PO BID Fluoxetine (Prozac), 40 MG PO HS Fluoxetine Hcl (Prozac), 20 MG PO HS Fluticasone Propionate (Nasal) (Flonase Allergy Relief ), 2 SPRAYS ROSARIO DAILY Loratadine (Claritin), 10 MG PO DAILY Montelukast Sodium (Singulair), 10 MG PO DAILY Pantoprazole (Protonix), 40 MG PO BID Pentosan Polysulfate Sodium (Elmiron), 300 MG PO BID Topiramate (Topamax), 100 MG PO BID Scheduled PRN Acetaminophen-Caffeine (Excedrin Tension Headache), 1 TAB PO UD PRN for Headache Baclofen (Lioresal), 10 MG PO TID PRN for Hiccups Levalbuterol Tartrate (Levalbuterol Tartrate Hfa), 2 PUFFS INH Q4 PRN for Wheezing Lorazepam (Ativan), 0.5 MG PO TID PRN for Anxiety Metoclopramide (Reglan), 1 TAB PO TID PRN for Hiccups Morphine Sulfate (Morphine Sulfate Ir), 30 MG PO Q8 PRN for Pain Phenazopyridine HCl (Pyridium), 200 MG PO TID PRN for Bladder pain Prochlorperazine Maleate (Compazine), 10 MG PO TID PRN for Nausea Review of Systems Ten systems reviewed and negative except as noted in HPI. Physical Exam Vital Signs Date Time Temp Pulse Resp B/P Pulse Ox O2 Delivery O2 Flow Rate FiO2 12/26/16 21:03 76 20 93/62 98 Room Air 12/26/16 19:42 75 20 82/50 99 Room Air 12/26/16 17:52 36.7 64 18 107/73 97 Room Air General Appearance: WD/WN, no apparent distress, + pertinent finding (pleasant alert 36 year old female) Head: normocephalic, atraumatic Eyes: normal inspection, PERRL, EOMI ENT: TMs normal, pharynx normal Neck: supple, trachea midline Respiratory/Chest: lungs clear, normal breath sounds, no respiratory distress, no accessory muscle use Cardiovascular: regular rate, rhythm, no murmur Abdomen/GI: soft (nondistended), + pertinent finding (hyperactive bowel sounds , tender to palpation in suprapubic and RLQ. no guarding. no rebound tenderness. ileostomy present in RLQ with stool and gas present. ) Extremities/Musculoskelatal: no calf tenderness, no pedal edema Neurologic/Psych: alert, normal mood/affect, oriented x 3, + pertinent finding (no focal deficit on gross examination) Skin: warm/dry, + pertinent finding (scattered ecchymosis on lower extremities) Diagnostics Laboratory Results Results Past 24 Hours Test 12/26/16 18:35 12/26/16 19:52 Range/Units White Blood Count 3.50 4.8-10.8 K/uL Red Blood Count 4.49 4.2-5.4 M/uL Hemoglobin 12.2 12.0-16.0 g/dL Hematocrit 37.3 37-47 % Mean Corpuscular Volume 83.1 80-100 fL Mean Corpuscular Hemoglobin 27.2 25-34 pg Mean Corpuscular Hemoglobin Concent 32.7 32-36 g/dl Platelet Count 67 130-400 K/uL Mean Platelet Volume 10.1 7.4-10.4 fL RDW Standard Deviation 44.6 36.4-46.3 fL RDW Coefficient of Variation 14.5 11.5-14.5 % Neutrophils % (Manual) 53.0 % Lymphocytes % (Manual) 27.8 % Variant Lymphocytes % (manual) 12.2 % Monocytes % (Manual) 3.5 % Eosinophils % (Manual) 3.5 % Neutrophils # (Manual) 1.86 1.4-6.5 K/uL Total Absolute Neutrophils 1.86 1.4-6.5 K/uL Lymphocytes # (Manual) 0.97 1.2-3.4 K/uL Absolute Variant Lymphocytes 0.43 K/uL Total Absolute Lymphocytes 1.40 1.2-3.4 K/uL Monocytes # (Manual) 0.12 0.11-0.59 K/uL Eosinophils # (Manual) 0.12 0-0.5 K/uL Platelet Estimate DECREASED Sodium Level 142 136-145 mmol/L Potassium Level 3.9 3.5-5.1 mmol/L Chloride Level 113 98-107 mmol/L Carbon Dioxide Level 20 21-32 mmol/L Anion Gap 9.0 3-11 mmol/L Blood Urea Nitrogen 8 7-18 mg/dl Creatinine 0.97 0.60-1.20 mg/dl Est Creatinine Clear Calc Drug Dose 88.5 ml/min Estimated GFR () 86.5 Estimated GFR (Non- 74.6 BUN/Creatinine Ratio 7.9 10-20 Random Glucose 100 70-99 mg/dl Lactic Acid Level 1.1 0.4-2.0 mmol/L Calcium Level 8.5 8.5-10.1 mg/dl Total Bilirubin 0.5 0.2-1 mg/dl Direct Bilirubin 0.2 0-0.2 mg/dl Aspartate Amino Transf (AST/SGOT) 14 15-37 U/L Alanine Aminotransferase (ALT/SGPT) 46 12-78 U/L Alkaline Phosphatase 109 45-117 U/L Total Protein 6.1 6.4-8.2 gm/dl Albumin 3.6 3.4-5.0 gm/dl Lipase 186 73-393 U/L Urine Color YELLOW Urine Appearance CLEAR CLEAR Urine pH 6.5 4.5-7.5 Urine Specific [place] 1.015 1.000-1.030 Urine Protein NEG NEG Urine Glucose (UA) NEG NEG Urine Ketones NEG NEG Urine Occult Blood NEG NEG Urine Nitrite NEG NEG Urine Bilirubin NEG NEG Urine Urobilinogen NEG NEG Urine Leukocyte Esterase NEG NEG Urine WBC (Auto) 1-5 0-5 /hpf Urine RBC (Auto) 0-4 0-4 /hpf Urine Hyaline Casts (Auto) 0 0-5 /lpf Urine Epithelial Cells (Auto) 0-5 0-5 /lpf Urine Bacteria (Auto) NEG NEG Urine Test NEG NEG Diagnostic Radiology ABDOMEN AND PELVIS CT WITH IV CONTRAST CT DOSE: 252.00 mGy.cm HISTORY: Pain abd pain TECHNIQUE: Multiaxial CT images of the abdomen and pelvis were performed following the use of intravenous contrast. COMPARISON STUDY: 04/02/2016 FINDINGS: Lung bases are clear. Liver is uniform throughout. Slightly progressive splenomegaly splenomegaly compared to the prior exam. Normal appearing kidneys. Findings consistent with a complete colectomy. Several mildly distended loops of small bowel within the soft tissue pelvic region. Possibility of adhesions is considered. An obstructing lesion is not appreciated. There is a right anterior abdominal ostomy showing no evidence for obstructive change.. IMPRESSION: 1. Slightly progressive splenomegaly compared to the prior exam. 2. Findings of a prior colectomy and right lower quadrant ileostomy. 3. Several slightly distended loops of small bowel within the soft tissue pelvic region. Possibility of adhesions must be a consideration, with no well-defined evidence for an obstructing mass. Impression Assessment and Plan POSSIBLE SMALL BOWEL OBSTRUCTION Pt with history of multiple abdominal surgeries- colectomy for colorectal cancer and Crohn's, hysterectomy, appendectomy, laparoscopy for endometriosis CT a/p -several slightly distended loops of small bowel within the soft tissue pelvic region. Possibility of adhesions must be a consideration, with no well- defined evidence for an obstructing mass. NPO, IVF's, PRN morphine with holding parameter for hypotension Consult general surgery EPISODIC HYPOTENSION Improved with IVF's Likely due to hypovolemia from diarrhea; IV morphine given in ER may have contributed Afebrile, no leukocytosis, no tachycardia, lactic acid WNL Continue IVF's Monitor in telemetry overnight MIGRAINE Reports TOBAR similar to chronic migraines Try combination of IV Toradol, IV Benadryl, IV compazine which worked for her in the past CHRONIC THROMBOCYTOPENIA Plt count 67; was 84 on last outpatient labs No active bleeding Follows with [facility] hematology Monitor CBC ASTHMA Not in acute exacerbation Continue home inhaler and Singulair CHRONIC PAIN Takes PO morphine at home prescribed by PCP Dr. Farrell- verified on [place] drug monitoring data base PRN IV morphine for now DEPRESSION/ ANXIETY Continue home meds FULL CODE DVT PROPHYLAXIS SCD's due to thrombocytopenia Patient seen in collaboration with Dr. Mcgrath. Please see his addendum. Agree with above H and P. Briefly 36Y F with PMH of Crohns disease and colon cancer s/p colectomy presents with increasing ostomy output and abdominal pain for last few days. Also complains of some leakage around ostomy .Has some nausea. Currently also her migraines and chronic back pain acting up. p/e Ge not inn distress Cvs s 1 and s2 heard no murmurs Rs cta b/l no added sounds Abd soft bowels sounds present colostomy site n erythema or drainage seen a/p SBO? on ct scan has abdominal pain and increased ostomy output npo, iv fluids Surgery evaluation monitor in hospital Hypotension relative from dehydration, morphine? on fluids will monitor VTE Prophylaxis VTE Risk Assessment Done? Y/N: Yes Risk Level: Low
[2016-12-26] MEDS ORDERED: METO-157 PO (22:18)
[2016-12-26] MEDS ORDERED: MULT-506 PO (22:20)
[2016-12-26 22:40] VITALS: BP 83/50; PULSE 66; TEMP 36.3; O2SAT 99; Ht 172.7 cm; Wt 61.2 kg
[2016-12-26] MEDS ORDERED: METOCLOPRAMIDE HCL 5 MG TAB PO PRN (23:15)
[2016-12-26] MEDS: SODIUM CHLORIDE 0.9% 1000ML 1,000 ML IV SCH (23:28)
[2016-12-27] VITALS (9 sets, daily range): BP systolic 86–100; BP diastolic 48–67; PULSE 56–82; TEMP 36–36.9; O2SAT 97–99
[2016-12-27 06:27] LABS: HEMATOCRIT 31.1 % (37-47); MEAN CELL VOLUME 84.5 fL (80-100); MEAN CORPUSCULAR HEMOGLOBIN 28.3 pg (25-34); MEAN CORPUSCULAR HGB CONC 33.4 g/dl (32-36); RED BLOOD COUNT 3.68 M/uL (4.2-5.4); WHITE BLOOD COUNT 1.91 K/uL (4.8-10.8)
[2016-12-27 06:30] LABS: MEAN PLATELET VOLUME 9.7 fL (7.4-10.4); PLATELET COUNT 49 K/uL (130-400)
[2016-12-27] MEDS: PANTOprazole SOD 40 MG TAB PO SCH ×2 (08:30→20:45)
[2016-12-27] MEDS: PENTOSAN POLYSULFATE SODIUM 100 MG CAP PO SCH ×2 (08:31→20:45)
[2016-12-27] MEDS: TOPIRAMATE 100 MG TAB PO SCH ×2 (08:31→20:44)
[2016-12-27] MEDS: CeleBREX 200 MG CAP PO SCH ×2 (08:31→20:45)
[2016-12-27] MEDS: FLUTICASONE PROPIONATE NA SPR 16 GM BTL NAE SCH (08:32)
[2016-12-27] MEDS: LORATADINE 10 MG TAB PO SCH (08:32)
[2016-12-27] MEDS: SODIUM CHLORIDE 0.9% 1000ML 1,000 ML IV SCH ×3 (08:33→21:38)
--- NOTE | 2016-12-27 08:57 | History and Physical ---
History & Physical Date & Time of Service: December 27, 2016 at 08:41 Chief Complaint: Hypotension, Sbo Primary Care Physician: Bao Farrell M.D. History of Present Illness Source: patient This is a 36 y/o female with PMH of colorectal CA and Crohn's disease s/p colectomy, and other problems listed below who presents to the ED for abdominal pain. Patient reports abdominal pain x 3 days around RLQ ileostomy site and suprapubic area. She reports increased stool output requiring emptying of ostomy bag 6-8 x per day while usually it fills 3-4x per day. No hematochezia or melena. She reports associated bloating, nausea, vomiting x 1 yesterday, chills, generalized weakness, fatigue. States she was eating normally at home. Today she developed migraine with visual aura which is similar to prior migraines. States the migraine is causing dizziness. She takes Excedrin migraine at home. States migraine cocktail helped on prior ER visit. She reports spontaneous bruising on her legs. Has occasional mild nose bleed (last episode 1 week ago) but no other bleeding. She finished Macrobid total of 10 day course for UTI with resolution of urinary symptoms. Denies fever, cough, wheezing, SOB, chest pain. Pt reports hx of hysterectomy, hx appendectomy, hx laparoscopy for endometriosis. No prior bowel obstruction. I did H/P, now pt is still have some lower abdominal pain, but no nausea, no vomiting, no fever, pt had total colectomy and ileostomy for colorectal cancer 1 year ago. now pt has been 3 days diarrhea, the ileostomy is still passing gas and stood. Past Medical/Surgical History Medical Problems: (1) Anxiety Status: Chronic (2) Colorectal cancer Status: Chronic (3) Crohn's colitis Status: Chronic (4) Depression Status: Chronic (5) Endometriosis Status: Chronic (6) Fibromyalgia Status: Chronic (7) History of iron deficiency anemia Status: Chronic (8) Ileostomy in place Status: Chronic (9) Interstitial cystitis Status: Chronic (10) Migraine Status: Chronic (11) Raynauds disease Status: Chronic (12) Thrombocytopenia Status: Chronic Surgical Problems: (1) H/O colonoscopy Status: Chronic (2) H/O esophagogastroduodenoscopy Status: Chronic (3) H/O laparoscopy Permanent Comment: biopsy for endometriosis Status: Chronic (4) H/O total colectomy Status: Resolved (5) S/P appendectomy Status: Chronic (6) S/P hysterectomy Status: Chronic Family History Diabetes mellitus FH: depression FH: heart disease FHx: cancer FHx: gallbladder disease Hypertension Social History Smoking Status: Never Smoker Alcohol Use: occasionally Drug Use: none Marital Status: Housing status: lives with significant other Occupational Status: disabled Allergies Coded Allergies: Clarithromycin (Verified Allergy, Severe, breathing problems, 12/11/16) Hydromorphone (Verified Allergy, Intermediate, RASH, 12/11/16) pt sasy she is allergic Ondansetron (Verified Allergy, Intermediate, itching, 12/11/16) Peanut (Verified Allergy, Intermediate, Rash and itchiness, 12/11/16) Hydroxyzine (Verified Allergy, Mild, itching, 12/11/16) Adhesives (Verified Allergy, Unknown, itching, swelling, 12/11/16) Albuterol (Verified Allergy, Unknown, rash, 12/11/16) BEE STING (Unverified Allergy, Unknown, anaphylaxis, 12/11/16) Latex (Verified Allergy, Unknown, itching, swelling, 12/11/16) Oxycodone (Verified Allergy, Unknown, itching, 12/11/16) Barium Sulfate (Verified Adverse Reaction, Unknown, diarrhea, 12/11/16) Lobster (Verified Adverse Reaction, Unknown, nausea, diarrhea, 12/11/16) Pregabalin (Verified Adverse Reaction, Unknown, delusions, 12/11/16) Uncoded Allergies: SPLENDA (Allergy, Unknown, Nausea/Vomiting, 09/26/16) Home Medications Scheduled Celecoxib (Celebrex), 400 MG PO BID Fluoxetine (Prozac), 40 MG PO HS Fluoxetine Hcl (Prozac), 20 MG PO HS Fluticasone Propionate (Nasal) (Flonase Allergy Relief Ch), 2 SPRAYS ROSARIO DAILY Loratadine (Claritin), 10 MG PO DAILY Montelukast Sodium (Singulair), 10 MG PO DAILY Pantoprazole (Protonix), 40 MG PO BID Pentosan Polysulfate Sodium (Elmiron), 300 MG PO BID Topiramate (Topamax), 100 MG PO BID Scheduled PRN Acetaminophen-Caffeine (Excedrin Tension Headache), 1 TAB PO UD PRN for Headache Baclofen (Lioresal), 10 MG PO TID PRN for Hiccups Levalbuterol Tartrate (Levalbuterol Tartrate Hfa), 2 PUFFS INH Q4 PRN for Wheezing Lorazepam (Ativan), 0.5 MG PO TID PRN for Anxiety Metoclopramide (Reglan), 1 TAB PO TID PRN for Hiccups Morphine Sulfate (Morphine Sulfate Ir), 30 MG PO Q8 PRN for Pain Phenazopyridine HCl (Pyridium), 200 MG PO TID PRN for Bladder pain Prochlorperazine Maleate (Compazine), 10 MG PO TID PRN for Nausea Review of Systems Constitutional: No chills, No fatigue, No fever, No problem reported, No sweats , No weakness, No weight loss Eyes: No diplopia, No discharge, No eye pain, No problem reported, No redness, No worsening of vision ENT: No dental problems, No hearing loss, No nasal symptoms, No problem reported, No sore throat, No tinnitus, No trouble swallowing, No unusual epistaxis Respiratory: No cough, No dyspnea at rest, No dyspnea on exertion, No hemoptysis, No problem reported, No shortness of breath, No sputum, No wheezing Abdomen: + diarrhea, + pain Genitourinary - Female: No dysmenorrhea, No dysuria, No hematuria, No menorrhagia, No metrorrhagia, No , No problem reported, No rash, No urinary frequency, No urinary incontinence, No urinary retention, No urinary urgency, No vaginal bleeding, No vaginal discharge, No vaginal itching, No vulvodynia Neurologic: No balance problems, No memory loss, No numbness/tingling, No paralysis, No problem reported, No vertigo, No weakness Hematologic / Lymphatic: + problem reported (Thrombocytopenia) Physical Exam Vital Signs Date Time Temp Pulse Resp B/P Pulse Ox O2 Delivery O2 Flow Rate FiO2 12/27/16 07:18 36.6 82 18 88/48 98 Room Air 12/27/16 05:00 99 Room Air 12/27/16 03:56 36.4 65 20 88/55 99 Room Air 12/27/16 00:00 99 Room Air 12/27/16 00:00 99 Room Air 12/27/16 00:00 36.0 56 89/53 99 Room Air 12/26/16 22:40 36.3 66 16 83/50 99 Room Air 12/26/16 22:01 81 20 110/59 100 Room Air 12/26/16 21:03 76 20 93/62 98 Room Air 12/26/16 19:42 75 20 82/50 99 Room Air 12/26/16 17:52 36.7 64 18 107/73 97 Room Air General Appearance: WD/WN, no apparent distress, + pertinent finding (pleasant alert 36 year old female) Head: normocephalic, atraumatic Eyes: normal inspection, PERRL, EOMI ENT: TMs normal, pharynx normal Neck: supple, no JVD, trachea midline Respiratory/Chest: chest non-tender, lungs clear, normal breath sounds, no respiratory distress, no accessory muscle use Cardiovascular: regular rate, rhythm, no murmur Abdomen/GI: normal bowel sounds (some stool in ileiostomy bag), soft ( nondistended), no pulsatile mass, + tenderness, + pertinent finding ( hyperactive bowel sounds, tender to palpation in suprapubic and RLQ. no guarding. no rebound tenderness. ileostomy present in RLQ with stool and gas present. ) Extremities/Musculoskelatal: no calf tenderness, no pedal edema, normal range of motion Neurologic/Psych: no motor/sensory deficits, alert, normal mood/affect, oriented x 3, + pertinent finding (no focal deficit on gross examination) Skin: warm/dry, no rash, + pertinent finding (scattered ecchymosis on lower extremities) Diagnostics Laboratory Results Results Past 24 Hours Test 12/26/16 18:35 12/26/16 19:52 12/27/16 05:50 Range/Units White Blood Count 3.50 1.91 4.8-10.8 K/uL Red Blood Count 4.49 3.68 4.2-5.4 M/uL Hemoglobin 12.2 10.4 12.0-16.0 g/dL Hematocrit 37.3 31.1 37-47 % Mean Corpuscular Volume 83.1 84.5 80-100 fL Mean Corpuscular Hemoglobin 27.2 28.3 25-34 pg Mean Corpuscular Hemoglobin Concent 32.7 33.4 32-36 g/dl Platelet Count 67 49 130-400 K/uL Mean Platelet Volume 10.1 9.7 7.4-10.4 fL RDW Standard Deviation 44.6 46.2 36.4-46.3 fL RDW Coefficient of Variation 14.5 14.8 11.5-14.5 % Neutrophils % (Manual) 53.0 % Lymphocytes % (Manual) 27.8 % Variant Lymphocytes % (manual) 12.2 % Monocytes % (Manual) 3.5 % Eosinophils % (Manual) 3.5 % Neutrophils # (Manual) 1.86 1.4-6.5 K/uL Total Absolute Neutrophils 1.86 1.4-6.5 K/uL Lymphocytes # (Manual) 0.97 1.2-3.4 K/uL Absolute Variant Lymphocytes 0.43 K/uL Total Absolute Lymphocytes 1.40 1.2-3.4 K/uL Monocytes # (Manual) 0.12 0.11-0.59 K/uL Eosinophils # (Manual) 0.12 0-0.5 K/uL Platelet Estimate DECREASED Sodium Level 142 136-145 mmol/L Potassium Level 3.9 3.5-5.1 mmol/L Chloride Level 113 98-107 mmol/L Carbon Dioxide Level 20 21-32 mmol/L Anion Gap 9.0 3-11 mmol/L Blood Urea Nitrogen 8 7-18 mg/dl Creatinine 0.97 0.60-1.20 mg/dl Est Creatinine Clear Calc Drug Dose 88.5 ml/min Estimated GFR () 86.5 Estimated GFR (Non- 74.6 BUN/Creatinine Ratio 7.9 10-20 Random Glucose 100 70-99 mg/dl Lactic Acid Level 1.1 0.4-2.0 mmol/L Calcium Level 8.5 8.5-10.1 mg/dl Total Bilirubin 0.5 0.2-1 mg/dl Direct Bilirubin 0.2 0-0.2 mg/dl Aspartate Amino Transf (AST/SGOT) 14 15-37 U/L Alanine Aminotransferase (ALT/SGPT) 46 12-78 U/L Alkaline Phosphatase 109 45-117 U/L Total Protein 6.1 6.4-8.2 gm/dl Albumin 3.6 3.4-5.0 gm/dl Lipase 186 73-393 U/L Urine Color YELLOW Urine Appearance CLEAR CLEAR Urine pH 6.5 4.5-7.5 Urine Specific [place] 1.015 1.000-1.030 Urine Protein NEG NEG Urine Glucose (UA) NEG NEG Urine Ketones NEG NEG Urine Occult Blood NEG NEG Urine Nitrite NEG NEG Urine Bilirubin NEG NEG Urine Urobilinogen NEG NEG Urine Leukocyte Esterase NEG NEG Urine WBC (Auto) 1-5 0-5 /hpf Urine RBC (Auto) 0-4 0-4 /hpf Urine Hyaline Casts (Auto) 0 0-5 /lpf Urine Epithelial Cells (Auto) 0-5 0-5 /lpf Urine Bacteria (Auto) NEG NEG Urine Test NEG NEG Diagnostic Radiology ABDOMEN AND PELVIS CT WITH IV CONTRAST CT DOSE: 252.00 mGy.cm HISTORY: Pain abd pain TECHNIQUE: Multiaxial CT images of the abdomen and pelvis were performed following the use of intravenous contrast. COMPARISON STUDY: 04/02/2016 FINDINGS: Lung bases are clear. Liver is uniform throughout. Slightly progressive splenomegaly splenomegaly compared to the prior exam. Normal appearing kidneys. Findings consistent with a complete colectomy. Several mildly distended loops of small bowel within the soft tissue pelvic region. Possibility of adhesions is considered. An obstructing lesion is not appreciated. There is a right anterior abdominal ostomy showing no evidence for obstructive change.. IMPRESSION: 1. Slightly progressive splenomegaly compared to the prior exam. 2. Findings of a prior colectomy and right lower quadrant ileostomy. 3. Several slightly distended loops of small bowel within the soft tissue pelvic region. Possibility of adhesions must be a consideration, with no well-defined evidence for an obstructing mass. Impression Assessment and Plan IMP: S/P total colectomy + ileostomy, diarrhea, abdominal pain, base on H/P and CT scan finding- no significant SBO, I recommend to GI doctor consult, I will F/U, Thanks, Advanced Directives Existing Living Will: No Existing Power of Registration Rep: No VTE Prophylaxis VTE Risk Assessment Done? Y/N: Yes Risk Level: Low
--- NOTE | 2016-12-27 16:05 | Progress Note ---
Medicine Progress Note Date & Time of Visit: December 27, 2016 at 15:46. Subjective Pt was seen and examined Lying in bed with no distress continue to have tenderness in the mid abdomen She said that she is hungry and thirsty Denies any chest pain, palpitation and sob Objective Last 8 Hrs Date Time Temp Pulse Resp B/P Pulse Ox O2 Delivery O2 Flow Rate FiO2 12/27/16 12:00 Room Air 12/27/16 11:18 36.9 64 18 86/57 99 Room Air 12/27/16 08:00 Room Air Physical Exam: General- no acute distress Head- atraumatic Eyes- PERRL, EOMI ENT- oropharynx clear Neck- supple, no JVD Lungs- clear to auscultation, no wheezing Heart- regular rhythm; no murmur Abdomen- soft, +tenderness, ostomy bag in place Extremities- no pretibial edema, no calf tenderness Neuro- alert, oriented x 3; PERRL, EOMI; no facial palsy Skin- warm & dry Laboratory Results: Last 24 Hours Test 12/26/16 18:35 12/26/16 19:52 12/27/16 05:50 White Blood Count 3.50 K/uL 1.91 K/uL Red Blood Count 4.49 M/uL 3.68 M/uL Hemoglobin 12.2 g/dL 10.4 g/dL Hematocrit 37.3 % 31.1 % Mean Corpuscular Volume 83.1 fL 84.5 fL Mean Corpuscular Hemoglobin 27.2 pg 28.3 pg Mean Corpuscular Hemoglobin Concent 32.7 g/dl 33.4 g/dl Platelet Count 67 K/uL 49 K/uL Mean Platelet Volume 10.1 fL 9.7 fL RDW Standard Deviation 44.6 fL 46.2 fL RDW Coefficient of Variation 14.5 % 14.8 % Neutrophils % (Manual) 53.0 % Lymphocytes % (Manual) 27.8 % Variant Lymphocytes % (manual) 12.2 % Monocytes % (Manual) 3.5 % Eosinophils % (Manual) 3.5 % Neutrophils # (Manual) 1.86 K/uL Total Absolute Neutrophils 1.86 K/uL Lymphocytes # (Manual) 0.97 K/uL Absolute Variant Lymphocytes 0.43 K/uL Total Absolute Lymphocytes 1.40 K/uL Monocytes # (Manual) 0.12 K/uL Eosinophils # (Manual) 0.12 K/uL Platelet Estimate DECREASED Sodium Level 142 mmol/L Potassium Level 3.9 mmol/L Chloride Level 113 mmol/L Carbon Dioxide Level 20 mmol/L Anion Gap 9.0 mmol/L Blood Urea Nitrogen 8 mg/dl Creatinine 0.97 mg/dl Est Creatinine Clear Calc Drug Dose 88.5 ml/min Estimated GFR () 86.5 Estimated GFR (Non- 74.6 BUN/Creatinine Ratio 7.9 Random Glucose 100 mg/dl Lactic Acid Level 1.1 mmol/L Calcium Level 8.5 mg/dl Total Bilirubin 0.5 mg/dl Direct Bilirubin 0.2 mg/dl Aspartate Amino Transf (AST/SGOT) 14 U/L Alanine Aminotransferase (ALT/SGPT) 46 U/L Alkaline Phosphatase 109 U/L Total Protein 6.1 gm/dl Albumin 3.6 gm/dl Lipase 186 U/L Urine Color YELLOW Urine Appearance CLEAR Urine pH 6.5 Urine Specific [place] 1.015 Urine Protein NEG Urine Glucose (UA) NEG Urine Ketones NEG Urine Occult Blood NEG Urine Nitrite NEG Urine Bilirubin NEG Urine Urobilinogen NEG Urine Leukocyte Esterase NEG Urine WBC (Auto) 1-5 /hpf Urine RBC (Auto) 0-4 /hpf Urine Hyaline Casts (Auto) 0 /lpf Urine Epithelial Cells (Auto) 0-5 /lpf Urine Bacteria (Auto) NEG Urine Test NEG Assessment & Plan Abdominal pain associated with increase ileostomy output CT abdomen/pelvis-several slightly distended loops of small bowel within the soft tissue pelvic region. Surgery consulted, reviewed CT and No SBO GI consulted- waiting for input Started on Clear liquid diet Continue IVF PRN morphine for pain HYPOTENSION Likely due to hypovolemia from diarrhea Afebrile, no leukocytosis, no tachycardia, lactic acid normal Continue IVF's Monitor in telemetry overnight MIGRAINE Reports TOBAR similar to chronic migraines Try combination of IV Toradol, IV Benadryl, IV compazine which worked for her in the past Stable CHRONIC THROMBOCYTOPENIA Plt count 49 today No active bleeding Monitor CBC Hematology Dr. Arredondo Consulted as per Patient requests ASTHMA Continue home inhaler and Singulair Stable CHRONIC PAIN Takes PO morphine at home prescribed by PCP Dr. Farrell- verified on [place] drug monitoring data base with no issues PRN IV morphine for now DEPRESSION/ ANXIETY Continue home meds DVT PROPHYLAXIS SCD's due to thrombocytopenia CODE STATUS FULL CODE Consultants: [facility]STR[facility] SURGERY HEMATOLOGY Current Inpatient Medications: Current Inpatient Medications Medications (Trade) Dose Ordered Sig/Tamar Route Start Time Stop Time Status Last Admin Dose Admin Ioversol 100 ml 100 ml UD PRN IV 12/26/16 18:30 12/30/16 18:29 Sodium Chloride (Nss 1000ml) 1,000 ml @ 125 mls/hr Q8H IV 12/26/16 21:15 01/25/17 21:14 12/27/16 13:41 125 MLS/HR Acetaminophen (Tylenol Tab) 650 mg Q4H PRN PO 12/26/16 21:15 01/25/17 21:14 Morphine Sulfate (MoRPHine SULFATE INJ) 4 mg Q4H PRN IV 12/26/16 21:30 Baclofen (Lioresal Tab) 10 mg TID PRN PO 12/26/16 21:30 01/25/17 21:29 Celecoxib (CeleBREX CAP) 400 mg BID PO 12/27/16 09:00 01/26/17 08:59 12/27/16 08:31 400 MG Fluoxetine HCl (Prozac Cap) 60 mg HS PO 12/27/16 21:00 01/26/17 20:59 Fluticasone Propionate (Flonase Nasal [place]) 2 sprays DAILY ROSARIO 12/27/16 09:00 01/26/17 08:59 12/27/16 08:32 2 SPRAYS Levalbuterol (Xopenex Hfa Inhaler) 2 puffs Q4 PRN INH 12/26/16 21:30 01/25/17 21:29 Loratadine (Claritin Tab) 10 mg DAILY PO 12/27/16 09:00 01/26/17 08:59 12/27/16 08:32 10 MG Lorazepam (Ativan Tab) 0.5 mg TID PRN PO 12/26/16 21:30 01/25/17 21:29 Montelukast Sodium (Singulair Tab) 10 mg HS PO 12/27/16 21:00 01/26/17 20:59 Pantoprazole Sodium (Protonix Tab) 40 mg BID PO 12/27/16 09:00 01/26/17 08:59 12/27/16 08:30 40 MG Phenazopyridine HCl (Pyridium Tab) 200 mg TID PRN PO 12/26/16 21:30 01/25/17 21:29 Prochlorperazine Maleate (Compazine Tab) 10 mg TID PRN PO 12/26/16 21:30 01/25/17 21:29 Topiramate (Topamax Tab) 100 mg BID PO 12/27/16 09:00 01/26/17 08:59 12/27/16 08:31 100 MG Pentosan Polysulfate Sodium (Elmiron) 300 mg BID PO 12/27/16 09:00 01/26/17 08:59 12/27/16 08:31 300 MG Metoclopramide HCl (Reglan Tab) 5 mg TID PRN PO 12/26/16 23:15 01/25/17 23:14
[2016-12-27] MEDS: MoRPHine SULFATE 4 MG/ML 1 ML CARP\\VIAL IV PRN ×2 (17:28→21:39)
[2016-12-27 20:37] LABS: HEMATOCRIT 33.9 % (37-47); MEAN CELL VOLUME 83.9 fL (80-100); RED BLOOD COUNT 4.04 M/uL (4.2-5.4); WHITE BLOOD COUNT 2.21 K/uL (4.8-10.8)
[2016-12-27] MEDS: FLUOXETINE HCL 20 MG CAP PO SCH (20:44)
[2016-12-27 20:45] LABS: COMPLETE YES; EOS % 2.3 %; IG% 0.5 %; IPF 4.3 % (0.9-8.3); LYMPH % 42.5 %; LYMPH ABS # 0.94 K/uL (1.2-3.4); MEAN CORPUSCULAR HGB CONC 32.2 g/dl (32-36); MEAN PLATELET VOLUME 10.3 fL (7.4-10.4); NEUT % 49.7 %; PLATELET COUNT 60 K/uL (130-400)
[2016-12-27] MEDS: MONTELUKAST SOD 10 MG TAB PO SCH (20:45)
[2016-12-27 20:55] LABS: C-REACTIVE PROTEIN < 0.29 mg/dl (0-0.29); TOTAL IRON BINDING CAPACITY 300 mcg/dl (250-450)
[2016-12-27] MEDS ORDERED: FLUOXETINE HCL 20 MG CAP PO SCH (21:00)
--- NOTE | 2016-12-27 21:24 | Medical Consult ---
Consultation Date of Consultation: December 27, 2016. Attending Physician: Modesto Good M.D. Reason for Consultation: thrombocytopenia History of Present Illness 36 year old female with admitted with abdominal pain for 3 days and increased ostomy output from her baseline. She has chronic thrombocytopenia with platelet counts ranging from 80's to normal. She recently went to ER on 12/11/16 and was started on macrobid for UTI. At that time her WBC was 4.06 hemoglobin was 43.3 and platelet count was 78,0000. She states that she received additional macrobid from her PCP to complete 10 day course and states that she completed that her last day was around December 21 or . She was in the ER on December 23 and had another CBC which showed WBC 3.59 hemoglobin 13 hematocrit 38.8 and platelet count 70,000. She presented to ER yesterday with increased mid to lower abdominal pain and diarrhea, increased ostomy output 6 to 8 times per day. She denies any fevers or chills or dysuria or hematuria. She states that she had a mild epistaxis about a week ago and notice increased bruising on her legs. PAST MEDICAL/PAST SURGICAL HISTORY: Chron's disease, C diff, splenomegaly, chronic thrombocytopenia, depression, endometriosis s/p hysterectomy s/p colectomy ileostomy, iron deficiency migraines raynauds interstitial cystitis Past Medical/Surgical History Medical Problems: (1) Abdominal pain Status: Acute (2) Abdominal pain Status: Acute (3) Abdominal pain Status: Acute (4) Abdominal pain Status: Acute (5) Dehydration Status: Acute (6) Dehydration Status: Acute (7) Headache Status: Acute (8) Hypotension Status: Acute (9) Intractable abdominal pain Status: Acute (10) Paronychia of toe of left foot Status: Acute (11) Small bowel obstruction Status: Acute (12) UTI (urinary tract infection) Status: Acute (13) UTI (urinary tract infection) Status: Acute Family History Diabetes mellitus FH: depression FH: heart disease FHx: cancer FHx: gallbladder disease Hypertension Social History Smoking Status: Never Smoker Alcohol Use: occasionally Drug Use: none Marital Status: Occupation Status: disabled Allergies Coded Allergies: Clarithromycin (Verified Allergy, Severe, breathing problems, 12/11/16) Hydromorphone (Verified Allergy, Intermediate, RASH, 12/11/16) pt sasy she is allergic Ondansetron (Verified Allergy, Intermediate, itching, 12/11/16) Peanut (Verified Allergy, Intermediate, Rash and itchiness, 12/11/16) Hydroxyzine (Verified Allergy, Mild, itching, 12/11/16) Adhesives (Verified Allergy, Unknown, itching, swelling, 12/11/16) Albuterol (Verified Allergy, Unknown, rash, 12/11/16) BEE STING (Unverified Allergy, Unknown, anaphylaxis, 12/11/16) Latex (Verified Allergy, Unknown, itching, swelling, 12/11/16) Oxycodone (Verified Allergy, Unknown, itching, 12/11/16) Barium Sulfate (Verified Adverse Reaction, Unknown, diarrhea, 12/11/16) Lobster (Verified Adverse Reaction, Unknown, nausea, diarrhea, 12/11/16) Pregabalin (Verified Adverse Reaction, Unknown, delusions, 12/11/16) Uncoded Allergies: SPLENDA (Allergy, Unknown, Nausea/Vomiting, 09/26/16) Current Inpatient Medications Current Inpatient Medications Medications (Trade) Dose Ordered Sig/Tamar Route Start Time Stop Time Status Last Admin Dose Admin Ioversol 100 ml 100 ml UD PRN IV 12/26/16 18:30 12/30/16 18:29 Sodium Chloride (Nss 1000ml) 1,000 ml @ 125 mls/hr Q8H IV 12/26/16 21:15 01/25/17 21:14 12/27/16 13:41 125 MLS/HR Acetaminophen (Tylenol Tab) 650 mg Q4H PRN PO 12/26/16 21:15 01/25/17 21:14 Morphine Sulfate (MoRPHine SULFATE INJ) 4 mg Q4H PRN IV 12/26/16 21:30 12/27/16 17:28 4 MG Baclofen (Lioresal Tab) 10 mg TID PRN PO 12/26/16 21:30 01/25/17 21:29 Celecoxib (CeleBREX CAP) 400 mg BID PO 12/27/16 09:00 01/26/17 08:59 12/27/16 08:31 400 MG Fluoxetine HCl (Prozac Cap) 60 mg HS PO 12/27/16 21:00 01/26/17 20:59 Fluticasone Propionate (Flonase Nasal [place]) 2 sprays DAILY ROSARIO 12/27/16 09:00 01/26/17 08:59 12/27/16 08:32 2 SPRAYS Levalbuterol (Xopenex Hfa Inhaler) 2 puffs Q4 PRN INH 12/26/16 21:30 01/25/17 21:29 Loratadine (Claritin Tab) 10 mg DAILY PO 12/27/16 09:00 01/26/17 08:59 12/27/16 08:32 10 MG Lorazepam (Ativan Tab) 0.5 mg TID PRN PO 12/26/16 21:30 01/25/17 21:29 Montelukast Sodium (Singulair Tab) 10 mg HS PO 12/27/16 21:00 01/26/17 20:59 Pantoprazole Sodium (Protonix Tab) 40 mg BID PO 12/27/16 09:00 01/26/17 08:59 12/27/16 08:30 40 MG Phenazopyridine HCl (Pyridium Tab) 200 mg TID PRN PO 12/26/16 21:30 01/25/17 21:29 Prochlorperazine Maleate (Compazine Tab) 10 mg TID PRN PO 12/26/16 21:30 01/25/17 21:29 Topiramate (Topamax Tab) 100 mg BID PO 12/27/16 09:00 01/26/17 08:59 12/27/16 08:31 100 MG Pentosan Polysulfate Sodium (Elmiron) 300 mg BID PO 12/27/16 09:00 01/26/17 08:59 12/27/16 08:31 300 MG Metoclopramide HCl (Reglan Tab) 5 mg TID PRN PO 12/26/16 23:15 01/25/17 23:14 Review of Systems Constitutional: + fatigue (mild), No chills, No fever, No sweats, No weakness, No weight loss ENT: No nasal symptoms, No sore throat Physical Exam Date Time Temp Pulse Resp B/P Pulse Ox O2 Delivery O2 Flow Rate FiO2 12/27/16 20:00 36.8 82 100/67 99 Room Air 12/27/16 20:00 99 Room Air 12/27/16 16:00 Room Air 12/27/16 15:32 36.8 69 18 97/63 99 Room Air 12/27/16 12:00 Room Air 12/27/16 11:18 36.9 64 18 86/57 99 Room Air 12/27/16 08:00 Room Air 12/27/16 07:18 36.6 82 18 88/48 98 Room Air 12/27/16 05:00 99 Room Air 12/27/16 03:56 36.4 65 20 88/55 99 Room Air 12/27/16 00:00 99 Room Air 12/27/16 00:00 99 Room Air 12/27/16 00:00 36.0 56 89/53 99 Room Air 12/26/16 22:40 36.3 66 16 83/50 99 Room Air 12/26/16 22:01 81 20 110/59 100 Room Air 12/26/16 21:03 76 20 93/62 98 Room Air General Appearance: WD/WN, no apparent distress Head: normocephalic, atraumatic Eyes: sclerae normal ENT: normal ENT inspection Neck: supple, no adenopathy Respiratory/Chest: lungs clear, normal breath sounds, no respiratory distress, no accessory muscle use Cardiovascular: regular rate, rhythm, no edema Abdomen/GI: normal bowel sounds, non tender, soft, + pertinent finding (+ ostomy with watery stool) Extremities/Musculoskelatal: no calf tenderness, no pedal edema, non-tender Skin: warm/dry, + pertinent finding (few scattered ecchymoses on her thighs) Laboratory Results Last 24 Hours Test 12/27/16 05:50 12/27/16 19:59 12/27/16 20:28 White Blood Count 1.91 K/uL 2.21 K/uL Red Blood Count 3.68 M/uL 4.04 M/uL Hemoglobin 10.4 g/dL 10.9 g/dL Hematocrit 31.1 % 33.9 % Mean Corpuscular Volume 84.5 fL 83.9 fL Mean Corpuscular Hemoglobin 28.3 pg 27.0 pg Mean Corpuscular Hemoglobin Concent 33.4 g/dl RDW Standard Deviation 46.2 fL 44.7 fL RDW Coefficient of Variation 14.8 % 14.5 % Platelet Count 49 K/uL Mean Platelet Volume 9.7 fL Transferrin % Saturation % Assessment & Plan 36 year old female admitted with abdominal pain. She recently took a 10 day course of macrobid for UTI. She is now admitted with abdominal pain. Her WBC and platelet count as well as her hemoglobin have worsened. She denies any other new medications recently other than macrobid. Acute on chronic thrombocytopenia and acute drop in her WBC and hemoglobin. She denies any melena or hematochezia. Worsening may be drug induced pancytopenia since she was recently on macrobid Check CBC w/ diff, peripheral smear, immature platelet fraction, iron tibc ferritin B12 folate and flow cytometry, esr and CRP Recommend neutropenia precautions We will also check flow cytometry Recommend monitor daily CBCw/diff Discussed with patient that if her counts are not recovering would not need to consider further workup if her counts are not recovering, though she is not keen on bone marrow aspirate and biopsy. She states that she has generalized tremors but states that her but her primary physician was not able to explain it and she has also seen a claims attorney in the past but did not feel that they had any recommendations and wants to obtain a neurology evaluation for that - recommend hospitalist evaluate and consider neurology evaluation. She denies any chills or anxiety. Discussed with Dr Crisostomo. Also discussed that patient had similar low counts in the past after cephalosporins antibiotic at [facility] last year which resolved with cessation of the antibiotic.
[2016-12-28] VITALS (8 sets, daily range): BP systolic 88–99; BP diastolic 50–70; PULSE 61–82; TEMP 36.3–36.9; O2SAT 97–100
[2016-12-28] MEDS: LORAZEPAM 0.5 MG TAB PO PRN (00:16)
[2016-12-28] MEDS: SODIUM CHLORIDE 0.9% 1000ML 1,000 ML IV SCH ×3 (05:23→21:32)
[2016-12-28 05:53] LABS: HEMATOCRIT 29.1 % (37-47); MEAN CELL VOLUME 84.1 fL (80-100); MEAN CORPUSCULAR HEMOGLOBIN 28.9 pg (25-34); MEAN CORPUSCULAR HGB CONC 34.4 g/dl (32-36); RED BLOOD COUNT 3.46 M/uL (4.2-5.4); WHITE BLOOD COUNT 1.91 K/uL (4.8-10.8)
[2016-12-28 05:56] LABS: MEAN PLATELET VOLUME 9.7 fL (7.4-10.4); PLATELET COUNT 47 K/uL (130-400)
[2016-12-28 06:42] LABS: BUN/CREATININE RATIO 5.6 (10-20); CALCIUM 7.7 mg/dl (8.5-10.1); CREATININE 0.66 mg/dl (0.60-1.20); MAGNESIUM 1.7 mg/dl (1.8-2.4); POTASSIUM 3.2 mmol/L (3.5-5.1)
[2016-12-28] MEDS: LORATADINE 10 MG TAB PO SCH (08:29)
[2016-12-28] MEDS: TOPIRAMATE 100 MG TAB PO SCH ×2 (08:30→21:07)
[2016-12-28] MEDS ORDERED: MAGNESIUM SULFATE 1GM / D5W 1 GM in PREMIXED IN D5W 100 ML IV ONE (08:30)
[2016-12-28] MEDS: BACLOFEN 10 MG TAB PO PRN (08:30)
[2016-12-28] MEDS ORDERED: POTASSIUM CHLORIDE 20 MEQ TABCR PO ONE (08:30)
[2016-12-28] MEDS: PENTOSAN POLYSULFATE SODIUM 100 MG CAP PO SCH ×2 (08:30→21:06)
[2016-12-28] MEDS: PANTOprazole SOD 40 MG TAB PO SCH ×2 (08:31→21:07)
[2016-12-28] MEDS: FLUTICASONE PROPIONATE NA SPR 16 GM BTL NAE SCH (08:31)
[2016-12-28] MEDS: CeleBREX 200 MG CAP PO SCH ×2 (08:31→21:07)
[2016-12-28] MEDS: PHENAZOPYRIDINE HCL 200 MG TAB PO PRN (09:42)
--- NOTE | 2016-12-28 09:46 | Gastroenterology Progress Note ---
Progress Note Date of Service: December 28, 2016 Subjective Pt evaluation today including: conversation w/ patient, physical exam, chart review, lab review, review of inpatient medication list Patient reports persistent RLQ pain at the site of her ostomy. She is passing liquid in her ostomy bag. Rates her pain as 7/10 at present. No nausea or vomiting. Requests dietary advancement as she reports liquids worsen her diarrhea. Remains pancytopenic. Seen by hematology and laboratory abnormalities were thought to be possibly related to antibiotic use. Review of Systems Constitutional: No chills, No fever Respiratory: No problem reported Cardiac: No problem reported Abdomen: + see HPI Medications Current Inpatient Medications Medications (Trade) Dose Ordered Sig/Tamar Route Start Time Stop Time Status Last Admin Dose Admin Ioversol 100 ml 100 ml UD PRN IV 12/26/16 18:30 12/30/16 18:29 Sodium Chloride (Nss 1000ml) 1,000 ml @ 125 mls/hr Q8H IV 12/26/16 21:15 01/25/17 21:14 12/28/16 05:23 125 MLS/HR Acetaminophen (Tylenol Tab) 650 mg Q4H PRN PO 12/26/16 21:15 01/25/17 21:14 Morphine Sulfate (MoRPHine SULFATE INJ) 4 mg Q4H PRN IV 12/26/16 21:30 12/27/16 21:39 4 MG Baclofen (Lioresal Tab) 10 mg TID PRN PO 12/26/16 21:30 01/25/17 21:29 12/28/16 08:30 10 MG Celecoxib (CeleBREX CAP) 400 mg BID PO 12/27/16 09:00 01/26/17 08:59 12/28/16 08:31 400 MG Fluoxetine HCl (Prozac Cap) 60 mg HS PO 12/27/16 21:00 01/26/17 20:59 12/27/16 20:44 60 MG Fluticasone Propionate (Flonase Nasal [place]) 2 sprays DAILY ROSARIO 12/27/16 09:00 01/26/17 08:59 12/28/16 08:31 2 SPRAYS Levalbuterol (Xopenex Hfa Inhaler) 2 puffs Q4 PRN INH 12/26/16 21:30 01/25/17 21:29 Loratadine (Claritin Tab) 10 mg DAILY PO 12/27/16 09:00 01/26/17 08:59 12/28/16 08:29 10 MG Lorazepam (Ativan Tab) 0.5 mg TID PRN PO 12/26/16 21:30 01/25/17 21:29 12/28/16 00:16 0.5 MG Montelukast Sodium (Singulair Tab) 10 mg HS PO 12/27/16 21:00 01/26/17 20:59 12/27/16 20:45 10 MG Pantoprazole Sodium (Protonix Tab) 40 mg BID PO 12/27/16 09:00 01/26/17 08:59 12/28/16 08:31 40 MG Phenazopyridine HCl (Pyridium Tab) 200 mg TID PRN PO 12/26/16 21:30 01/25/17 21:29 Prochlorperazine Maleate (Compazine Tab) 10 mg TID PRN PO 12/26/16 21:30 01/25/17 21:29 Topiramate (Topamax Tab) 100 mg BID PO 12/27/16 09:00 01/26/17 08:59 12/28/16 08:30 100 MG Pentosan Polysulfate Sodium (Elmiron) 300 mg BID PO 12/27/16 09:00 01/26/17 08:59 12/28/16 08:30 300 MG Metoclopramide HCl (Reglan Tab) 5 mg TID PRN PO 12/26/16 23:15 01/25/17 23:14 12/28/16 08:29 5 MG Objective Vital Signs Date Time Temp Pulse Resp B/P Pulse Ox O2 Delivery O2 Flow Rate FiO2 12/28/16 07:36 36.3 61 18 94/50 97 Room Air 12/28/16 04:00 98 Room Air 12/28/16 03:22 36.3 70 18 88/50 98 Room Air 89/55 12/28/16 00:00 97 Room Air 12/27/16 23:13 36.8 73 16 92/56 97 Room Air 12/27/16 21:32 98/61 12/27/16 20:00 36.8 82 100/67 99 Room Air 12/27/16 20:00 99 Room Air 12/27/16 16:00 Room Air 12/27/16 15:32 36.8 69 18 97/63 99 Room Air 12/27/16 12:00 Room Air 12/27/16 11:18 36.9 64 18 86/57 99 Room Air Physical Exam General Appearance: no apparent distress Eyes: EOMI Respiratory/Chest: lungs clear, normal breath sounds, no respiratory distress Cardiovascular: regular rate, rhythm, no gallop, no murmur Abdomen: normal bowel sounds, soft, + tenderness (RLQ) Neurologic/Psych: alert, normal mood/affect, oriented x 3 Laboratory Results Last 24 Hours Test 12/27/16 20:28 12/28/16 05:36 White Blood Count 2.21 K/uL 1.91 K/uL Red Blood Count 4.04 M/uL 3.46 M/uL Hemoglobin 10.9 g/dL 10.0 g/dL Hematocrit 33.9 % 29.1 % Mean Corpuscular Volume 83.9 fL 84.1 fL Mean Corpuscular Hemoglobin 27.0 pg 28.9 pg Mean Corpuscular Hemoglobin Concent 32.2 g/dl 34.4 g/dl Platelet Count 60 K/uL 47 K/uL Mean Platelet Volume 10.3 fL 9.7 fL Neutrophils (%) (Auto) 49.7 % Lymphocytes (%) (Auto) 42.5 % Monocytes (%) (Auto) 5.0 % Eosinophils (%) (Auto) 2.3 % Basophils (%) (Auto) 0.0 % Neutrophils # (Auto) 1.10 K/uL Lymphocytes # (Auto) 0.94 K/uL Monocytes # (Auto) 0.11 K/uL Eosinophils # (Auto) 0.05 K/uL Basophils # (Auto) 0.00 K/uL RDW Standard Deviation 44.7 fL 45.1 fL RDW Coefficient of Variation 14.5 % 14.6 % Immature Granulocyte % (Auto) 0.5 % Immature Granulocyte # (Auto) 0.01 K/uL Immature Platelet Fraction 4.3 % Erythrocyte Sedimentation Rate 2 mm/hr Iron Level 41 mcg/dl Total Iron Binding Capacity 300 mcg/dl Transferrin 232 mg/dl Transferrin % Saturation 13 % Lactate Dehydrogenase 117 U/L C-Reactive Protein < 0.29 mg/dl Vitamin B12 Level 367 pg/mL Folate 3.87 ng/mL Sodium Level 145 mmol/L Potassium Level 3.2 mmol/L Chloride Level 119 mmol/L Carbon Dioxide Level 18 mmol/L Anion Gap 8.0 mmol/L Blood Urea Nitrogen 4 mg/dl Creatinine 0.66 mg/dl Est Creatinine Clear Calc Drug Dose 96.5 ml/min Estimated GFR () 130.8 Estimated GFR (Non- 112.9 BUN/Creatinine Ratio 5.6 Random Glucose 85 mg/dl Calcium Level 7.7 mg/dl Magnesium Level 1.7 mg/dl Assessment and Plan Patient is a 36 year-old female with a history of Crohn's colitis and questionable history of colon cancer status post total colectomy with ileostomy presenting with RLQ pain and abnormal imaging questioning a PSBO. 1. No n/v. Will advance to full liquids. 2. Supportive measures per primary team. 3. Dr. Jaimes to discuss with Dr. Kan of [facility]. Agree with XIMENA Montero as above Abd: Soft, Tender LLQ, ND Continue supportive care Tolerated Full Liquid diet Awaiting call back from Dr. Kan of [facility]
--- NOTE | 2016-12-28 10:54 | GASTROINTESTINAL CONSULTATION ---
DATE OF CONSULTATION: 12/27/2016 ATTENDING PHYSICIAN: Dr. Farrell. ORDERING PHYSICIAN: Dr. Jaimes. HISTORY OF PRESENT ILLNESS: Nya Geronimo is a 36-year-old female, known to our service with a history of Crohn's disease, status post colectomy with ileostomy for questionable colon and rectal cancer. She had previously failed Remicade therapy. She was last seen by our service in March of 2016, secondary to intractable abdominal pain and persistent leukopenia. She last underwent endoscopic workup by Dr. Lee in February of 2016 with no findings of active Crohn's disease on ileoscopy. She presented to the Department of Emergency Medicine on December 26 with complaints of abdominal pain and back pain as well as increased output from her ostomy. Upon arrival, she was noted to have laboratory studies, including a white blood cell count of 3.5, hemoglobin 12.2, hematocrit 37.3 and a platelet count of 67. Her liver panel was unremarkable. BUN and creatinine were noted to be 8 and 0.97. Her UA was negative. She had a CT scan of the abdomen and pelvis with IV contrast only, which showed slightly progressive splenomegaly compared to prior exam and findings of a prior colectomy and right lower quadrant ileostomy. There were several slightly distended loops of small bowel within the soft tissue pelvic region. She was subsequently admitted and kept n.p.o., given IV fluids and narcotic analgesics for pain control. At the time that I saw the patient, she was asking to eat. She states that her ileostomy drainage was complete liquid, which is different than her usual and she was concerned that she was not receiving pain medications because she had had persistent hypotension here, but assured me, "my blood pressure is up now, can I have some pain medications?" She still complains of right-sided abdominal pain, rated as a 7-8/10 in intensity, radiating to her back. She describes it as a chronic cramp. She does admit that morphine relieves her pain. She denies any exacerbating factors. Again, she asks for advanced diet. She does follow with Dr. Kan at [facility] for her Crohn's disease, though states that she is not on any maintenance therapy for Crohn's, as she was told by Dr. Kan "that she has no active disease". She denies any further complaints, including fevers, chills, nausea, vomiting, hematemesis, melena or bloody ostomy output. PAST MEDICAL HISTORY: Depression, endometriosis, fibromyalgia, migraine headaches, Raynaud's disease, anxiety, questionable history of colorectal cancer, Crohn's colitis, interstitial cystitis, thrombocytopenia, leukopenia. PAST SURGICAL HISTORY: Includes history of a laparoscopy, total colectomy with ileostomy, appendectomy, hysterectomy. ALLERGIES: BIAXIN, DILAUDID, ZOFRAN, ATARAX, ADHESIVES, ALBUTEROL, BEE STINGS, LATEX, OXYCODONE, BARIUM SULFATE, LOBSTER LYRICA AND SPLENDA. MEDICATIONS: At present include Prozac 60 mg p.o. at bedtime, Singulair 10 mg p.o. at bedtime, Celebrex 400 mg p.o. b.i.d., Flonase 2 sprays via each naris daily, Claritin 10 mg daily, Protonix 40 mg p.o. b.i.d., Topamax 100 mg p.o. b.i.d., Elmiron 300 mg p.o. b.i.d., Reglan 5 mg p.o. t.i.d. p.r.n. hiccups, morphine 4 mg IV q. 4h. p.r.n. pain, baclofen 10 mg p.o. t.i.d. p.r.n. hiccups, Xopenex inhaler every 4 hours p.r.n. wheezing, Ativan 0.5 mg p.o. t.i.d. p.r.n. anxiety, Pyridium 200 mg p.o. t.i.d. p.r.n. bladder pain, Compazine 10 mg p.o. t.i.d. p.r.n. nausea, Tylenol 650 mg p.o. q. 4h. p.r.n. pain or fever. SOCIAL HISTORY: She is . She is currently on disability. She never smoked. No alcohol or illicit drug use. FAMILY HISTORY: Negative for GI malignancy or inflammatory bowel disease. REVIEW OF SYSTEMS: Negative 10-system review, other than pertinent positives listed in the HPI. PHYSICAL EXAMINATION: VITAL SIGNS: Temp 36.8, pulse 69, respirations 18, blood pressure 97/63, pulse ox 99% on room air. GENERAL: Chronic ill appearing, slightly anxious, no acute distress. HEAD: Normocephalic, atraumatic. EYES: Pupils equally round. Extraocular muscles are intact. ENT: External evaluation of ears and nose is normal. Oropharynx is clear. Poor dentition. NECK: Soft and supple. CHEST: Clear to auscultation bilaterally. CARDIOVASCULAR SYSTEM: Regular rate and rhythm. ABDOMEN: Soft, tender in the right upper quadrant. Ileostomy draining light brown liquid stool. EXTREMITIES: No clubbing, cyanosis, or edema. LABORATORY AND RADIOGRAPHIC STUDIES: Reviewed in the HPI. IMPRESSION: A 36-year-old female with abdominal pain, history of Crohn's, status post colectomy with ileostomy and questionable CT imaging findings of a partial small-bowel obstruction. PLAN: At the present time, the patient is feeling much better. She is asking for an advanced diet. She is also asking for increased pain meds and does exhibit characteristics of narcotic-seeking behavior. I will attempt to contact Dr. Kan at [facility] for further input from him, he follows with her regularly. The treatment of Crohn's disease is not narcotic analgesics and is treatment of the underlying disease process with maintenance therapy. The fact that she is not on any maintenance medications for her Crohn's disease is surprising and I will discuss with Dr. Kan further regarding the patient's compliance or lack thereof. Once again, thanks for allowing me to participate in the care of this patient. If you have any further questions, please do not hesitate in contacting me.
[2016-12-28 12:11] LABS: URINE APPEARANCE CLEAR (CLEAR); URINE BILIRUBIN NEG (NEG); URINE COLOR DK YELLOW; URINE EPITHELIAL CELL AUTO 0-5 /lpf (0-5); URINE NITRITE POS (NEG); URINE PH 6.5 (4.5-7.5); URINE SPECIFIC GRAVITY 1.007 (1.000-1.030); UROBILINOGEN NEG (NEG); ZZUR CULT IF INDIC CLEAN CATCH NO
[2016-12-28 12:14] LABS: MANUAL MICROSCOPIC REQUIRED? NO; REVIEW REQ? NO
[2016-12-28] MEDS: MoRPHine SULFATE 4 MG/ML 1 ML CARP\\VIAL IV PRN ×2 (13:15→17:46)
--- NOTE | 2016-12-28 16:14 | Surgery Progress Note ---
Surgery Progress Note Date of Service December 28, 2016. Subjective + feeling well pt feels better, some stool in ileostomy bag, pt denies nausea, no vomiting, no fever. Objective Vital Signs: Date Time Temp Pulse Resp B/P Pulse Ox O2 Delivery O2 Flow Rate FiO2 12/28/16 15:33 36.9 78 18 97/61 97 Room Air 12/28/16 13:13 93/61 12/28/16 12:00 Room Air 12/28/16 11:34 36.3 82 18 99/70 100 Room Air 12/28/16 08:30 Room Air 12/28/16 07:36 36.3 61 18 94/50 97 Room Air 12/28/16 04:00 98 Room Air 12/28/16 03:22 36.3 70 18 88/50 98 Room Air 89/55 12/28/16 00:00 97 Room Air 12/27/16 23:13 36.8 73 16 92/56 97 Room Air 12/27/16 21:32 98/61 12/27/16 20:00 36.8 82 100/67 99 Room Air 12/27/16 20:00 99 Room Air General Appearance: WD/WN Head: normocephalic Neck: supple Respiratory/Chest: lungs clear Abdomen: soft (timmy-umbilical area, no rebound pain, some stool in ileostomy bag), + tenderness Laboratory Results: Results Past 24 Hours Test 12/27/16 20:28 12/28/16 00:00 12/28/16 05:36 Range/Units White Blood Count 2.21 1.91 4.8-10.8 K/uL Red Blood Count 4.04 3.46 4.2-5.4 M/uL Hemoglobin 10.9 10.0 12.0-16.0 g/dL Hematocrit 33.9 29.1 37-47 % Mean Corpuscular Volume 83.9 84.1 80-100 fL Mean Corpuscular Hemoglobin 27.0 28.9 25-34 pg Mean Corpuscular Hemoglobin Concent 32.2 34.4 32-36 g/dl Platelet Count 60 47 130-400 K/uL Mean Platelet Volume 10.3 9.7 7.4-10.4 fL Neutrophils (%) (Auto) 49.7 % Lymphocytes (%) (Auto) 42.5 % Monocytes (%) (Auto) 5.0 % Eosinophils (%) (Auto) 2.3 % Basophils (%) (Auto) 0.0 % Neutrophils # (Auto) 1.10 1.4-6.5 K/uL Lymphocytes # (Auto) 0.94 1.2-3.4 K/uL Monocytes # (Auto) 0.11 0.11-0.59 K/uL Eosinophils # (Auto) 0.05 0-0.5 K/uL Basophils # (Auto) 0.00 0-0.2 K/uL RDW Standard Deviation 44.7 45.1 36.4-46.3 fL RDW Coefficient of Variation 14.5 14.6 11.5-14.5 % Immature Granulocyte % (Auto) 0.5 % Immature Granulocyte # (Auto) 0.01 0.00-0.02 K/uL Immature Platelet Fraction 4.3 0.9-8.3 % Peripheral Blood Smear Path Consult Erythrocyte Sedimentation Rate 2 0-21 mm/hr Iron Level 41 35-150 mcg/dl Total Iron Binding Capacity 300 250-450 mcg/dl Transferrin 232 200-360 mg/dl Transferrin % Saturation 13 15-50 % Lactate Dehydrogenase 117 84-246 U/L C-Reactive Protein < 0.29 0-0.29 mg/dl Vitamin B12 Level 367 211-911 pg/mL Folate 3.87 >5.38 ng/mL Urine Color DK YELLOW Urine Appearance CLEAR CLEAR Urine pH 6.5 4.5-7.5 Urine Specific [place] 1.007 1.000-1.030 Urine Protein NEG NEG Urine Glucose (UA) NEG NEG Urine Ketones NEG NEG Urine Occult Blood NEG NEG Urine Nitrite POS NEG Urine Bilirubin NEG NEG Urine Urobilinogen NEG NEG Urine Leukocyte Esterase SMALL NEG Urine WBC (Auto) 5-10 0-5 /hpf Urine RBC (Auto) 0-4 0-4 /hpf Urine Hyaline Casts (Auto) 0 0-5 /lpf Urine Epithelial Cells (Auto) 0-5 0-5 /lpf Urine Bacteria (Auto) NEG NEG Sodium Level 145 136-145 mmol/L Potassium Level 3.2 3.5-5.1 mmol/L Chloride Level 119 98-107 mmol/L Carbon Dioxide Level 18 21-32 mmol/L Anion Gap 8.0 3-11 mmol/L Blood Urea Nitrogen 4 7-18 mg/dl Creatinine 0.66 0.60-1.20 mg/dl Est Creatinine Clear Calc Drug Dose 96.5 ml/min Estimated GFR () 130.8 Estimated GFR (Non- 112.9 BUN/Creatinine Ratio 5.6 10-20 Random Glucose 85 70-99 mg/dl Calcium Level 7.7 8.5-10.1 mg/dl Magnesium Level 1.7 1.8-2.4 mg/dl Assessment & Plan IMP: crohn's disease no surgical issue now at this point. Will F/U,
--- NOTE | 2016-12-28 19:42 | Progress Note ---
Medicine Progress Note Date & Time of Visit: December 28, 2016 at 19:34. Subjective Pt was seen and examined Sitting in bed with no distress she said that she is still having abdominal pain, but slightly improved her diet increase to full liquid denies any chest pain, palpitation, dizziness and sob Objective Last 8 Hrs Date Time Temp Pulse Resp B/P Pulse Ox O2 Delivery O2 Flow Rate FiO2 12/28/16 16:05 Room Air 12/28/16 15:33 36.9 78 18 97/61 97 Room Air 12/28/16 13:13 93/61 12/28/16 12:00 Room Air Physical Exam: General- no acute distress Head- atraumatic Eyes- PERRL, EOMI ENT- oropharynx clear Neck- supple, no JVD Lungs- clear to auscultation, no wheezing Heart- regular rhythm; no murmur Abdomen- soft, +tenderness, ostomy bag in place Extremities- no pretibial edema, no calf tenderness Neuro- alert, oriented x 3; PERRL, EOMI; no facial palsy Skin- warm & dry Laboratory Results: Last 24 Hours Test 12/27/16 20:28 12/28/16 00:00 12/28/16 05:36 White Blood Count 2.21 K/uL 1.91 K/uL Red Blood Count 4.04 M/uL 3.46 M/uL Hemoglobin 10.9 g/dL 10.0 g/dL Hematocrit 33.9 % 29.1 % Mean Corpuscular Volume 83.9 fL 84.1 fL Mean Corpuscular Hemoglobin 27.0 pg 28.9 pg Mean Corpuscular Hemoglobin Concent 32.2 g/dl 34.4 g/dl Platelet Count 60 K/uL 47 K/uL Mean Platelet Volume 10.3 fL 9.7 fL Neutrophils (%) (Auto) 49.7 % Lymphocytes (%) (Auto) 42.5 % Monocytes (%) (Auto) 5.0 % Eosinophils (%) (Auto) 2.3 % Basophils (%) (Auto) 0.0 % Neutrophils # (Auto) 1.10 K/uL Lymphocytes # (Auto) 0.94 K/uL Monocytes # (Auto) 0.11 K/uL Eosinophils # (Auto) 0.05 K/uL Basophils # (Auto) 0.00 K/uL RDW Standard Deviation 44.7 fL 45.1 fL RDW Coefficient of Variation 14.5 % 14.6 % Immature Granulocyte % (Auto) 0.5 % Immature Granulocyte # (Auto) 0.01 K/uL Immature Platelet Fraction 4.3 % Peripheral Blood Smear Path Consult Erythrocyte Sedimentation Rate 2 mm/hr Iron Level 41 mcg/dl Total Iron Binding Capacity 300 mcg/dl Transferrin 232 mg/dl Transferrin % Saturation 13 % Lactate Dehydrogenase 117 U/L C-Reactive Protein < 0.29 mg/dl Vitamin B12 Level 367 pg/mL Folate 3.87 ng/mL Urine Color DK YELLOW Urine Appearance CLEAR Urine pH 6.5 Urine Specific [place] 1.007 Urine Protein NEG Urine Glucose (UA) NEG Urine Ketones NEG Urine Occult Blood NEG Urine Nitrite POS Urine Bilirubin NEG Urine Urobilinogen NEG Urine Leukocyte Esterase SMALL Urine WBC (Auto) 5-10 /hpf Urine RBC (Auto) 0-4 /hpf Urine Hyaline Casts (Auto) 0 /lpf Urine Epithelial Cells (Auto) 0-5 /lpf Urine Bacteria (Auto) NEG Sodium Level 145 mmol/L Potassium Level 3.2 mmol/L Chloride Level 119 mmol/L Carbon Dioxide Level 18 mmol/L Anion Gap 8.0 mmol/L Blood Urea Nitrogen 4 mg/dl Creatinine 0.66 mg/dl Est Creatinine Clear Calc Drug Dose 96.5 ml/min Estimated GFR () 130.8 Estimated GFR (Non- 112.9 BUN/Creatinine Ratio 5.6 Random Glucose 85 mg/dl Calcium Level 7.7 mg/dl Magnesium Level 1.7 mg/dl Assessment & Plan Abdominal pain associated with increase ileostomy output CT abdomen/pelvis-several slightly distended loops of small bowel within the soft tissue pelvic region. Surgery consulted, reviewed CT and No SBO GI consulted- Dr. Jaimes will discuss case with Dr. Kan at [facility] for further input since pt follows with Dr. Kan regularly Diet advanced to full liquid Continue IVF PRN morphine for pain HYPOTENSION Likely due to hypovolemia from diarrhea Afebrile, no leukocytosis, no tachycardia, lactic acid normal Continue IVF's Monitor in telemetry overnight stable ELECTROLYTES IMBALANCE Mg and K replaced monitor electrolytes LOW FOLATE will start on folic acid supplement MIGRAINE Reports TOBAR similar to chronic migraines Try combination of IV Toradol, IV Benadryl, IV compazine which worked for her in the past Stable CHRONIC THROMBOCYTOPENIA PANCYTOPENIA Plt count 47, WBC 1.9, rbc 3.4 possible related to recent abx used No active bleeding Monitor CBC Hematology Dr. Arredondo on board ASTHMA Continue home inhaler and Singulair Stable CHRONIC PAIN Takes PO morphine at home prescribed by PCP Dr. Farrell- verified on [place] drug monitoring data base with no issues PRN IV morphine for now DEPRESSION/ ANXIETY Continue home meds DVT PROPHYLAXIS SCD's due to thrombocytopenia CODE STATUS FULL CODE Consultants: [facility] HEMATOLOGY Current Inpatient Medications: Current Inpatient Medications Medications (Trade) Dose Ordered Sig/Tamar Route Start Time Stop Time Status Last Admin Dose Admin Ioversol 100 ml 100 ml UD PRN IV 12/26/16 18:30 12/30/16 18:29 Sodium Chloride (Nss 1000ml) 1,000 ml @ 125 mls/hr Q8H IV 12/26/16 21:15 01/25/17 21:14 12/28/16 13:14 125 MLS/HR Acetaminophen (Tylenol Tab) 650 mg Q4H PRN PO 12/26/16 21:15 01/25/17 21:14 Morphine Sulfate (MoRPHine SULFATE INJ) 4 mg Q4H PRN IV 12/26/16 21:30 12/28/16 17:46 4 MG Baclofen (Lioresal Tab) 10 mg TID PRN PO 12/26/16 21:30 01/25/17 21:29 12/28/16 08:30 10 MG Celecoxib (CeleBREX CAP) 400 mg BID PO 12/27/16 09:00 01/26/17 08:59 12/28/16 08:31 400 MG Fluoxetine HCl (Prozac Cap) 60 mg HS PO 12/27/16 21:00 01/26/17 20:59 12/27/16 20:44 60 MG Fluticasone Propionate (Flonase Nasal [place]) 2 sprays DAILY ROSARIO 12/27/16 09:00 01/26/17 08:59 12/28/16 08:31 2 SPRAYS Levalbuterol (Xopenex Hfa Inhaler) 2 puffs Q4 PRN INH 12/26/16 21:30 01/25/17 21:29 Loratadine (Claritin Tab) 10 mg DAILY PO 12/27/16 09:00 01/26/17 08:59 12/28/16 08:29 10 MG Lorazepam (Ativan Tab) 0.5 mg TID PRN PO 12/26/16 21:30 01/25/17 21:29 12/28/16 00:16 0.5 MG Montelukast Sodium (Singulair Tab) 10 mg HS PO 12/27/16 21:00 01/26/17 20:59 12/27/16 20:45 10 MG Pantoprazole Sodium (Protonix Tab) 40 mg BID PO 12/27/16 09:00 01/26/17 08:59 12/28/16 08:31 40 MG Phenazopyridine HCl (Pyridium Tab) 200 mg TID PRN PO 12/26/16 21:30 01/25/17 21:29 12/28/16 09:42 200 MG Prochlorperazine Maleate (Compazine Tab) 10 mg TID PRN PO 12/26/16 21:30 01/25/17 21:29 Topiramate (Topamax Tab) 100 mg BID PO 12/27/16 09:00 01/26/17 08:59 12/28/16 08:30 100 MG Pentosan Polysulfate Sodium (Elmiron) 300 mg BID PO 12/27/16 09:00 01/26/17 08:59 12/28/16 08:30 300 MG Metoclopramide HCl (Reglan Tab) 5 mg TID PRN PO 12/26/16 23:15 01/25/17 23:14 12/28/16 08:29 5 MG Folic Acid (Folvite Tab) 1 mg QAM PO 12/29/16 09:00 01/28/17 08:59
[2016-12-28] MEDS: FLUOXETINE HCL 20 MG CAP PO SCH (21:06)
[2016-12-28] MEDS: MONTELUKAST SOD 10 MG TAB PO SCH (21:09)
[2016-12-29] VITALS (8 sets, daily range): BP systolic 86–102; BP diastolic 54–68; PULSE 62–78; TEMP 36.3–36.9; O2SAT 98–100
[2016-12-29 06:41] LABS: HEMATOCRIT 32.4 % (37-47); MEAN CELL VOLUME 85.3 fL (80-100); MEAN CORPUSCULAR HEMOGLOBIN 28.2 pg (25-34); MEAN PLATELET VOLUME 10.6 fL (7.4-10.4); PLATELET COUNT 54 K/uL (130-400); WHITE BLOOD COUNT 1.93 K/uL (4.8-10.8)
[2016-12-29 07:34] LABS: BUN/CREATININE RATIO 2.2 (10-20); CREATININE 0.93 mg/dl (0.60-1.20); POTASSIUM 3.9 mmol/L (3.5-5.1)
[2016-12-29] MEDS: PANTOprazole SOD 40 MG TAB PO SCH ×2 (09:35→20:48)
[2016-12-29] MEDS: FLUTICASONE PROPIONATE NA SPR 16 GM BTL NAE SCH (09:35)
[2016-12-29] MEDS: CeleBREX 200 MG CAP PO SCH ×2 (09:36→20:47)
[2016-12-29] MEDS: PENTOSAN POLYSULFATE SODIUM 100 MG CAP PO SCH ×2 (09:36→20:48)
[2016-12-29] MEDS: LORATADINE 10 MG TAB PO SCH (09:37)
[2016-12-29] MEDS: TOPIRAMATE 100 MG TAB PO SCH ×2 (09:37→20:48)
[2016-12-29] MEDS: SODIUM CHLORIDE 0.9% 1000ML 1,000 ML IV SCH ×2 (09:41→23:18)
[2016-12-29] MEDS: MoRPHine SULFATE 4 MG/ML 1 ML CARP\\VIAL IV PRN (10:16)
[2016-12-29] MEDS ORDERED: MoRPHine SULFATE 4 MG/ML 1 ML CARP\\VIAL IV PRN (12:00)
--- NOTE | 2016-12-29 13:55 | NEUROLOGY CONSULTATION ---
DATE OF CONSULTATION: 12/29/2016 DATE OF CONSULTATION: 12/29/2016. HISTORY OF PRESENT ILLNESS: Nya is 36 years old, regularly follows with Bao Farrell M.D. of [place] and was a former patient of Dr. Cameron who s followed her for years for migraines, but she has not seen a neurologist now for at least 3 years. She is here in the hospital for evaluation of abdominal pain for the past 3 days and this occurs in the setting of past history of colorectal CA, Crohn's disease status post colectomy and a host of other problems including anxiety, depression, endometriosis, fibromyalgia, iron deficiency anemia, status post ileostomy placement, interstitial cystitis, the migraines, Raynaud's disease, thrombocytopenia, colonoscopy in the past on multiple occasions, history of esophagogastroduodenoscopy, laparoscopy. Surgically she has had a total colectomy, appendectomy, hysterectomy, and she now has a history of tremor, probably several months at least involving her hands and with intention and not particularly at rest. She also describes tremulousness of the entire body from time to time, but really does not describe myoclonus. I am consulted today to address the tremor and apparently Bao Farrell had requested that she be seen by [facility] in the future, but no appointment has been made in their neurology practice yet. FAMILY HISTORY: Positive for diabetes, depression, heart disease, cancer, gallbladder disease and just thyroidism in her mother. SOCIAL HISTORY: Reveals her to be a never smoker. She occasionally drinks. She is . She lives with a significant other and is disabled. ALLERGIES: SHE HAS EXTENSIVE DRUG ALLERGIES INCLUDING CLARITHROMYCIN, HYDROMORPHONE, ZOFRAN, PEANUTS, HYDROXYZINE, ADHESIVES, ALBUTEROL, BEE STINGS, LATEX, OXYCODONE, BARIUM, LOBSTER, PREGABALIN AND SPLENDA. How valid these allergies are is unclear as she is on some morphine derivatives now for pain and seemingly tolerating them well. HOME MEDICATIONS: Include Celebrex, Prozac 60 mg a day, fluticasone, loratadine, Singulair, Protonix, Topamax 100 mg b.i.d. for headaches, Elmiron and as needed medications including acetaminophen, caffeine, baclofen for hiccups, levalbuterol, lorazepam as needed, Reglan as needed, morphine up to 3 times a day 30 mg, phenazopyridine, and Compazine. PHYSICAL EXAMINATION: VITAL SIGNS: On examination, her blood pressure was 93/62, pulse was 76, respirations were 20. GENERAL: She was thin, alert, cooperative, oriented in 3 spheres. HEAD, EYES, EARS, NOSE, AND THROAT: There were no deformities on head, eyes, ears, nose and throat exam. LUNGS: Clear. HEART: Had a regular rhythm. ABDOMEN: Nondistended had hyperactive bowel sounds. EXTREMITIES: Free of edema. NEUROLOGIC: She had no findings at least described. Today her neurologic exam reveals her to be alert and oriented in 3 spheres. Eye movements are normal. Pupils are equal, round and reactive to light, ocular fundi are poorly seen. Facial motility and strength is normal. There is a slight tremor of the head and a little tremor of the speech. She has a significant tremor of the outstretched hands which does not worsen, particularly on [id number] and point to point testing. I do not see any real significant tremor in the lower extremities. I do not notice any myoclonic jerking activity. Reflexes are 1+ and symmetrical. Toes are downgoing. No Annalee's signs are seen. Muscle strength testing is normal. Sensation is grossly intact to vibration, light touch and temperature. Currently this tremor looks to be in the essential tremor category. She denies a family history. The tremors only came on in the past several months. She claims all of her medications are fairly stable, although she is on quite a number of agents that can exacerbate an underlying tremor, among them the Prozac and occasionally the Singulair, Reglan and even opiate derivatives but the latter would be most likely cause some myoclonus and she really denies that nor do I see it clinically. She is also now acutely ill, she is in the hospital. She has been seen by multiple specialists and at this point I really hesitate to add any medications for her tremor. She is on Topamax for her migraines which apparently are not adequately controlled, but this also can help tremor, although to date it has not. My gut feeling here is to leave everything well enough alone, let her get discharged back to her home and then see her when she is in a more stable condition and her medication list is stable as well. I might try some primidone in this particular setting, a beta aust[place] may help tremor and here migraines although I hate to add more medications. Her headaches might respond to the addition of some magnesium oxide, riboflavin as she is probably malabsorbing to some degree and may be deficient in these. Bottom line in all of this is that I really hesitate to offer any new treatment for tremor at this time until she can be discharged and home for several weeks at least. At most I would support adding magnesium oxide 400 mg and riboflavin 400 mg daily as these are not likely to produce side effects other than perhaps some diarrhea on the magnesium. I will check back with her tomorrow. JEANNIE
[2016-12-29] MEDS: PHENAZOPYRIDINE HCL 200 MG TAB PO PRN (17:39)
[2016-12-29] MEDS: LORAZEPAM 0.5 MG TAB PO PRN (17:41)
[2016-12-29] MEDS: ACETAMINOPHEN 325 MG TAB PO PRN (18:16)
[2016-12-29] MEDS: FLUOXETINE HCL 20 MG CAP PO SCH (20:48)
[2016-12-29] MEDS: MONTELUKAST SOD 10 MG TAB PO SCH (20:48)
[2016-12-30] VITALS (8 sets, daily range): BP systolic 87–104; BP diastolic 58–68; PULSE 61–73; TEMP 36.2–36.7; O2SAT 96–98
[2016-12-30 05:48] LABS: HEMATOCRIT 31.2 % (37-47); MEAN CORPUSCULAR HGB CONC 31.7 g/dl (32-36); RED BLOOD COUNT 3.67 M/uL (4.2-5.4); WHITE BLOOD COUNT 1.91 K/uL (4.8-10.8)
[2016-12-30 05:49] LABS: MEAN PLATELET VOLUME 9.7 fL (7.4-10.4); PLATELET COUNT 53 K/uL (130-400)
[2016-12-30 06:28] LABS: BUN/CREATININE RATIO 4.6 (10-20); CALCIUM 7.7 mg/dl (8.5-10.1); POTASSIUM 3.8 mmol/L (3.5-5.1)
[2016-12-30] MEDS: PENTOSAN POLYSULFATE SODIUM 100 MG CAP PO SCH ×2 (08:19→20:28)
[2016-12-30] MEDS: FLUTICASONE PROPIONATE NA SPR 16 GM BTL NAE SCH (08:19)
[2016-12-30] MEDS: PHENAZOPYRIDINE HCL 200 MG TAB PO PRN (08:19)
[2016-12-30] MEDS: LORATADINE 10 MG TAB PO SCH (08:19)
[2016-12-30] MEDS: CeleBREX 200 MG CAP PO SCH ×2 (08:19→20:29)
[2016-12-30] MEDS: PANTOprazole SOD 40 MG TAB PO SCH ×2 (08:20→20:29)
[2016-12-30] MEDS: TOPIRAMATE 100 MG TAB PO SCH ×2 (08:20→20:27)
[2016-12-30] MEDS: SODIUM CHLORIDE 0.9% 1000ML 1,000 ML IV SCH ×3 (11:17→20:42)
--- NOTE | 2016-12-30 12:38 | PROGRESS NOTE ---
DATE: 12/30/2016 SUBJECTIVE: Nya was seen today. She does not have a headache. Her appetite is improving and her abdominal pain is less. She is requiring less morphine, but still has a tremor and this really looks very much like an essential tremor pattern, although she is on a number of agents that could be at least driving it or bringing out a genetic propensity to have tremor. At this point, I continue to be very reluctant to offer any active treatment until we see how she is operating on an outpatient basis free of any acute medical issues and out of the hospital for several weeks. All I would add at this point would be magnesium oxide 400 mg and riboflavin 400 mg daily to see if this may help her migraines ____ anything about the tremor. Agents that may help the tremor might include beta blockers, but she has a history of depression, which can be exacerbated by these or primidone, which has its propensity for sedation and barbiturate dependency. ____ good choices in this complex case. The neurology group at [facility] will be happy to follow her along and she does have a record of having seeing Dr. Cameron in the past for headaches prior early onset of this tremor. I mentioned the option of her remaining with the [facility]; however, as she already sees hematology/oncology and gastroenterology within that system and her medical records and medication changes would be thus more readily available for any neurologic consultants to follow. I let the choice up to her. Apparently, Dr. Farrell, her primary care physician had put a request in for her to be seen by the [facility] neurology practice, but she has not yet had an appointment. Currently, then I would simply suggest she follow up with me in about a month and I will assess her tremor how frequent or severe migraines become at that point. I would not change any other medications. I would, however, discharge her on a magnesium oxide, riboflavin ____ We will se her tomorrow and take a look at her, but for now the exam really does not show any change in the overall tremor, her demeanor actually is improved, she has less pain and hopefully she can be discharged back to home fairly soon. JEANNIE
--- NOTE | 2016-12-30 15:59 | Progress Note ---
Medicine Progress Note Date & Time of Visit: December 30, 2016 at 15:40. Subjective Pt was seen and examined Sitting in bed comfortable with no distress Pt said that she continue to have tenderness in her abdomen She said that the pain is the same, but when I examined her there is less pain with palpation of the abdomen She has been tolerated diet denies any chest pain, palpitation, dizziness and sob Objective Last 8 Hrs Date Time Temp Pulse Resp B/P Pulse Ox O2 Delivery O2 Flow Rate FiO2 12/30/16 15:33 36.6 69 20 97/66 98 Room Air 12/30/16 11:20 36.5 73 18 104/68 96 Room Air 12/30/16 08:00 98 Room Air Physical Exam: General- no acute distress Head- atraumatic Eyes- PERRL, EOMI ENT- oropharynx clear Neck- supple, no JVD Lungs- clear to auscultation, no wheezing Heart- regular rhythm; no murmur Abdomen- soft, +tenderness (improved), ostomy bag in place Extremities- no pretibial edema, no calf tenderness Neuro- alert, oriented x 3; PERRL, EOMI; no facial palsy Skin- warm & dry Laboratory Results: Last 24 Hours Test 12/30/16 05:17 White Blood Count 1.91 K/uL Red Blood Count 3.67 M/uL Hemoglobin 9.9 g/dL Hematocrit 31.2 % Mean Corpuscular Volume 85.0 fL Mean Corpuscular Hemoglobin 27.0 pg Mean Corpuscular Hemoglobin Concent 31.7 g/dl RDW Standard Deviation 46.2 fL RDW Coefficient of Variation 14.7 % Platelet Count 53 K/uL Mean Platelet Volume 9.7 fL Sodium Level 146 mmol/L Potassium Level 3.8 mmol/L Chloride Level 117 mmol/L Carbon Dioxide Level 20 mmol/L Anion Gap 9.0 mmol/L Blood Urea Nitrogen 5 mg/dl Creatinine 1.00 mg/dl Est Creatinine Clear Calc Drug Dose 69.1 ml/min Estimated GFR () 83.4 Estimated GFR (Non- 71.9 BUN/Creatinine Ratio 4.6 Random Glucose 104 mg/dl Calcium Level 7.7 mg/dl Assessment & Plan Abdominal pain associated with increase ileostomy output CT abdomen/pelvis-several slightly distended loops of small bowel within the soft tissue pelvic region. Surgery consulted, reviewed CT and No SBO Gastro on Board Dr. Jaimes will discuss case with Dr. Kan at [facility] for further input since pt follows with Dr. Kan regularly Tolerated low fat diet Continue IVF will change narcotic to PO morphine Will discuss with GI tomorrow about the plan HYPOTENSION Likely due to hypovolemia from diarrhea Afebrile, no leukocytosis, no tachycardia, lactic acid normal Continue IVF's stable ELECTROLYTES IMBALANCE Mg and K replaced monitor electrolytes Stable LOW FOLATE Continue folic acid supplement MIGRAINE Reports TOBAR similar to chronic migraines Try combination of IV Toradol, IV Benadryl, IV compazine which worked for her in the past Neuro on board recommended magnesium and riboflavin Stable TREMORS Neuro on board recommend to start any treatment as an outpatient She will follow up with neuro CHRONIC THROMBOCYTOPENIA PANCYTOPENIA Plt count 53, WBC 1.9, rbc 3.4 possible related to recent abx used as per hematology No active bleeding Monitor CBC Hematology Dr. Arredondo on board ASTHMA Continue home inhaler and Singulair Stable CHRONIC PAIN Takes PO morphine at home prescribed by PCP Dr. Farrell- verified on [place] drug monitoring data base with no issues Will change IV morphine to PO DEPRESSION/ ANXIETY Continue home meds DVT PROPHYLAXIS SCD's due to thrombocytopenia CODE STATUS FULL CODE Consultants: GASTRO SURGERY HEMATOLOGY NEUROLOGY Current Inpatient Medications: Current Inpatient Medications Medications (Trade) Dose Ordered Sig/Tamar Route Start Time Stop Time Status Last Admin Dose Admin Ioversol 100 ml 100 ml UD PRN IV 12/26/16 18:30 12/30/16 18:29 Sodium Chloride (Nss 1000ml) 1,000 ml @ 80 mls/hr [id number] IV 12/26/16 21:15 01/25/17 21:14 12/30/16 11:17 80 MLS/HR Acetaminophen (Tylenol Tab) 650 mg Q4H PRN PO 12/26/16 21:15 01/25/17 21:14 12/29/16 18:16 650 MG Baclofen (Lioresal Tab) 10 mg TID PRN PO 12/26/16 21:30 01/25/17 21:29 12/28/16 08:30 10 MG Celecoxib (CeleBREX CAP) 400 mg BID PO 12/27/16 09:00 01/26/17 08:59 12/30/16 08:19 400 MG Fluoxetine HCl (Prozac Cap) 60 mg HS PO 12/27/16 21:00 01/26/17 20:59 12/29/16 20:48 60 MG Fluticasone Propionate (Flonase Nasal [place]) 2 sprays DAILY ROSARIO 12/27/16 09:00 01/26/17 08:59 12/30/16 08:19 2 SPRAYS Levalbuterol (Xopenex Hfa Inhaler) 2 puffs Q4 PRN INH 12/26/16 21:30 01/25/17 21:29 Loratadine (Claritin Tab) 10 mg DAILY PO 12/27/16 09:00 01/26/17 08:59 12/30/16 08:19 10 MG Lorazepam (Ativan Tab) 0.5 mg TID PRN PO 12/26/16 21:30 01/25/17 21:29 12/29/16 17:41 0.5 MG Montelukast Sodium (Singulair Tab) 10 mg HS PO 12/27/16 21:00 01/26/17 20:59 12/29/16 20:48 10 MG Pantoprazole Sodium (Protonix Tab) 40 mg BID PO 12/27/16 09:00 01/26/17 08:59 12/30/16 08:20 40 MG Phenazopyridine HCl (Pyridium Tab) 200 mg TID PRN PO 12/26/16 21:30 01/25/17 21:29 12/30/16 08:19 200 MG Prochlorperazine Maleate (Compazine Tab) 10 mg TID PRN PO 12/26/16 21:30 01/25/17 21:29 Topiramate (Topamax Tab) 100 mg BID PO 12/27/16 09:00 01/26/17 08:59 12/30/16 08:20 100 MG Pentosan Polysulfate Sodium (Elmiron) 300 mg BID PO 12/27/16 09:00 01/26/17 08:59 12/30/16 08:19 300 MG Metoclopramide HCl (Reglan Tab) 5 mg TID PRN PO 12/26/16 23:15 01/25/17 23:14 12/28/16 08:29 5 MG Folic Acid (Folvite Tab) 1 mg QAM PO 12/29/16 09:00 01/28/17 08:59 12/30/16 08:19 1 MG Morphine Sulfate (MoRPHine SULFATE INJ) 4 mg Q3HWA PRN IV 12/29/16 12:00 01/12/17 11:59 12/30/16 11:17 4 MG
[2016-12-30] MEDS ORDERED: MAGIC SWIZZLE PO PRN (20:15)
[2016-12-30] MEDS: LORAZEPAM 0.5 MG TAB PO PRN (20:26)
[2016-12-30] MEDS: MoRPHine SULFATE IR 15 MG TAB (IMMEDIATE RELEASE) PO PRN (20:26)
[2016-12-30] MEDS: MONTELUKAST SOD 10 MG TAB PO SCH (20:30)
[2016-12-30] MEDS: FLUOXETINE HCL 20 MG CAP PO SCH (20:30)
[2016-12-30] MEDS: ACETAMINOPHEN 325 MG TAB PO PRN (22:20)
[2016-12-31] MEDS: MoRPHine SULFATE IR 15 MG TAB (IMMEDIATE RELEASE) PO PRN ×2 (05:49→20:10)
[2016-12-31 06:00] LABS: HEMATOCRIT 31.1 % (37-47); MEAN CELL VOLUME 85.2 fL (80-100); MEAN CORPUSCULAR HEMOGLOBIN 27.4 pg (25-34); MEAN CORPUSCULAR HGB CONC 32.2 g/dl (32-36); RED BLOOD COUNT 3.65 M/uL (4.2-5.4); WHITE BLOOD COUNT 2.22 K/uL (4.8-10.8)
[2016-12-31 06:01] LABS: MEAN PLATELET VOLUME 9.7 fL (7.4-10.4); PLATELET COUNT 52 K/uL (130-400)
[2016-12-31 06:27] LABS: BUN/CREATININE RATIO 6.7 (10-20); CALCIUM 7.5 mg/dl (8.5-10.1); POTASSIUM 4.3 mmol/L (3.5-5.1)
[2016-12-31 07:33] VITALS: BP 92/58; PULSE 78; TEMP 36.7; O2SAT 96
[2016-12-31] MEDS: BACLOFEN 10 MG TAB PO PRN (08:53)
[2016-12-31] MEDS: TOPIRAMATE 100 MG TAB PO SCH ×2 (08:53→20:07)
[2016-12-31] MEDS: LORATADINE 10 MG TAB PO SCH (08:53)
[2016-12-31] MEDS: PHENAZOPYRIDINE HCL 200 MG TAB PO PRN (08:54)
[2016-12-31] MEDS: PANTOprazole SOD 40 MG TAB PO SCH ×2 (08:54→20:07)
[2016-12-31] MEDS: PENTOSAN POLYSULFATE SODIUM 100 MG CAP PO SCH ×2 (08:55→20:07)
[2016-12-31] MEDS: CeleBREX 200 MG CAP PO SCH ×2 (08:55→20:07)
[2016-12-31] MEDS: FLUTICASONE PROPIONATE NA SPR 16 GM BTL NAE SCH (08:56)
[2016-12-31] MEDS: SODIUM CHLORIDE 0.9% 1000ML 1,000 ML IV SCH (08:57)
[2016-12-31 09:00] VITALS: O2SAT 96
[2016-12-31] MEDS: LORAZEPAM 0.5 MG TAB PO PRN ×2 (09:02→23:32)
[2016-12-31] MEDS ORDERED: BENZOCAINE 20% (ORAJEL) 11.9 GM TUBE MT PRN (09:30)
--- NOTE | 2016-12-31 12:19 | Surgery Progress Note ---
Surgery Progress Note Date of Service December 31, 2016. Subjective + feeling well pt is doing better, she tolerated diet, no nausea, no vomiting, afebrile Objective Vital Signs: Date Time Temp Pulse Resp B/P Pulse Ox O2 Delivery O2 Flow Rate FiO2 12/31/16 09:00 96 Room Air 12/31/16 07:33 36.7 78 16 92/58 96 12/31/16 00:30 Room Air 12/30/16 23:59 36.5 63 18 93/65 96 Room Air 12/30/16 20:20 36.7 73 93/61 12/30/16 16:00 98 Room Air 12/30/16 15:33 36.6 69 20 97/66 98 Room Air General Appearance: WD/WN Head: normocephalic Neck: supple Laboratory Results: Results Past 24 Hours Test 12/31/16 05:37 Range/Units White Blood Count 2.22 4.8-10.8 K/uL Red Blood Count 3.65 4.2-5.4 M/uL Hemoglobin 10.0 12.0-16.0 g/dL Hematocrit 31.1 37-47 % Mean Corpuscular Volume 85.2 80-100 fL Mean Corpuscular Hemoglobin 27.4 25-34 pg Mean Corpuscular Hemoglobin Concent 32.2 32-36 g/dl RDW Standard Deviation 46.3 36.4-46.3 fL RDW Coefficient of Variation 14.8 11.5-14.5 % Platelet Count 52 130-400 K/uL Mean Platelet Volume 9.7 7.4-10.4 fL Sodium Level 148 136-145 mmol/L Potassium Level 4.3 3.5-5.1 mmol/L Chloride Level 119 98-107 mmol/L Carbon Dioxide Level 24 21-32 mmol/L Anion Gap 5.0 3-11 mmol/L Blood Urea Nitrogen 7 7-18 mg/dl Creatinine 1.00 0.60-1.20 mg/dl Est Creatinine Clear Calc Drug Dose 69.9 ml/min Estimated GFR () 83.4 Estimated GFR (Non- 71.9 BUN/Creatinine Ratio 6.7 10-20 Random Glucose 105 70-99 mg/dl Calcium Level 7.5 8.5-10.1 mg/dl Assessment & Plan IMP: crohn's disease pt is on the lunch, she does not want to exam her abdomen. pt said she feels better, I reviewed the labs, no surgical issue now at this point. sign off today, please call me if worse abdominal pain, pt understood, IMP: crohn's disease no surgical issue now at this point. Will F/U,
--- NOTE | 2016-12-31 15:39 | Progress Note ---
Medicine Progress Note Date & Time of Visit: December 31, 2016 at 15:30. Subjective Pt was seen and examined sitting in bed with no distress Pt said that she continue to have abdominal pain she said that the pain is improved slightly but during my physical exam pt did not have any tenderness with palpitation while she was talking She has been tolerated diet very well she said that she continues to have increase output from the ostomy she would like her pain med to be change to fentanyl patch denies any chest pain, palpitation, dizziness and SOB Objective Last 8 Hrs Date Time Temp Pulse Resp B/P Pulse Ox O2 Delivery O2 Flow Rate FiO2 12/31/16 15:17 Room Air 12/31/16 09:00 96 Room Air 12/31/16 07:33 36.7 78 16 92/58 96 Physical Exam: General- no acute distress Head- atraumatic Eyes- PERRL, EOMI ENT- oropharynx clear Neck- supple, no JVD Lungs- clear to auscultation, no wheezing Heart- regular rhythm; no murmur Abdomen- soft, No tenderness with light palpation while she was talking Extremities- no pretibial edema, no calf tenderness Neuro- alert, oriented x 3; PERRL, EOMI; no facial palsy Skin- warm & dry Laboratory Results: Last 24 Hours Test 12/31/16 05:37 White Blood Count 2.22 K/uL Red Blood Count 3.65 M/uL Hemoglobin 10.0 g/dL Hematocrit 31.1 % Mean Corpuscular Volume 85.2 fL Mean Corpuscular Hemoglobin 27.4 pg Mean Corpuscular Hemoglobin Concent 32.2 g/dl RDW Standard Deviation 46.3 fL RDW Coefficient of Variation 14.8 % Platelet Count 52 K/uL Mean Platelet Volume 9.7 fL Sodium Level 148 mmol/L Potassium Level 4.3 mmol/L Chloride Level 119 mmol/L Carbon Dioxide Level 24 mmol/L Anion Gap 5.0 mmol/L Blood Urea Nitrogen 7 mg/dl Creatinine 1.00 mg/dl Est Creatinine Clear Calc Drug Dose 69.9 ml/min Estimated GFR () 83.4 Estimated GFR (Non- 71.9 BUN/Creatinine Ratio 6.7 Random Glucose 105 mg/dl Calcium Level 7.5 mg/dl Assessment & Plan Abdominal pain associated with increase ileostomy output CT abdomen/pelvis-several slightly distended loops of small bowel within the soft tissue pelvic region. Surgery consulted, reviewed CT and No SBO Gastro on Board Dr. Jaimes will discuss case with Dr. Kan at [facility] for further input since pt follows with Dr. Kan regularly Tolerated low fat diet 12/31 Tolerated diet very well Still complaint of abdominal pain Physical exam benign she wants to start on fentanyl patch Discussed with pt that mcfp narcotic is not the treatment of choice for Crohn Will resume her home dose morphine Will contact dr. Jaimes for further management HYPOTENSION Likely due to hypovolemia from diarrhea Afebrile, no leukocytosis, no tachycardia, lactic acid normal stable ELECTROLYTES IMBALANCE Mg and K replaced monitor electrolytes Stable LOW FOLATE Continue folic acid supplement MIGRAINE Reports TOBAR similar to chronic migraines Try combination of IV Toradol, IV Benadryl, IV compazine which worked for her in the past Neuro on board recommended magnesium and riboflavin Stable TREMORS Neuro on board recommend to start any treatment as an outpatient She will follow up with neuro CHRONIC THROMBOCYTOPENIA PANCYTOPENIA Plt count 52, WBC 2.22 RBC 3.65 possible related to recent abx used as per hematology No active bleeding Monitor CBC Hematology Dr. Arredondo on board ASTHMA Continue home inhaler and Singulair Stable CHRONIC PAIN Takes PO morphine at home prescribed by PCP Dr. Farrell- verified on [place] drug monitoring data base with no issues Resume Po home dose morphine DEPRESSION/ ANXIETY Continue home meds DVT PROPHYLAXIS SCD's due to thrombocytopenia CODE STATUS FULL CODE Consultants: GASTRO SURGERY HEMATOLOGY NEUROLOGY Current Inpatient Medications: Current Inpatient Medications Medications (Trade) Dose Ordered Sig/Tamar Route Start Time Stop Time Status Last Admin Dose Admin Sodium Chloride (Nss 1000ml) 1,000 ml @ 40 mls/hr Q24H IV 12/26/16 21:15 01/25/17 21:14 12/31/16 08:57 40 MLS/HR Acetaminophen (Tylenol Tab) 650 mg Q4H PRN PO 12/26/16 21:15 01/25/17 21:14 12/30/16 22:20 650 MG Baclofen (Lioresal Tab) 10 mg TID PRN PO 12/26/16 21:30 01/25/17 21:29 12/31/16 08:53 10 MG Celecoxib (CeleBREX CAP) 400 mg BID PO 12/27/16 09:00 01/26/17 08:59 12/31/16 08:55 400 MG Fluoxetine HCl (Prozac Cap) 60 mg HS PO 12/27/16 21:00 01/26/17 20:59 12/30/16 20:30 60 MG Fluticasone Propionate (Flonase Nasal [place]) 2 sprays DAILY ROSARIO 12/27/16 09:00 01/26/17 08:59 12/31/16 08:56 2 SPRAYS Levalbuterol (Xopenex Hfa Inhaler) 2 puffs Q4 PRN INH 12/26/16 21:30 01/25/17 21:29 Loratadine (Claritin Tab) 10 mg DAILY PO 12/27/16 09:00 01/26/17 08:59 12/31/16 08:53 10 MG Lorazepam (Ativan Tab) 0.5 mg TID PRN PO 12/26/16 21:30 01/25/17 21:29 12/31/16 09:02 0.5 MG Montelukast Sodium (Singulair Tab) 10 mg HS PO 12/27/16 21:00 01/26/17 20:59 12/30/16 20:30 10 MG Pantoprazole Sodium (Protonix Tab) 40 mg BID PO 12/27/16 09:00 01/26/17 08:59 12/31/16 08:54 40 MG Phenazopyridine HCl (Pyridium Tab) 200 mg TID PRN PO 12/26/16 21:30 01/25/17 21:29 12/31/16 08:54 200 MG Prochlorperazine Maleate (Compazine Tab) 10 mg TID PRN PO 12/26/16 21:30 01/25/17 21:29 Topiramate (Topamax Tab) 100 mg BID PO 12/27/16 09:00 01/26/17 08:59 12/31/16 08:53 100 MG Pentosan Polysulfate Sodium (Elmiron) 300 mg BID PO 12/27/16 09:00 01/26/17 08:59 12/31/16 08:55 300 MG Metoclopramide HCl (Reglan Tab) 5 mg TID PRN PO 12/26/16 23:15 01/25/17 23:14 12/28/16 08:29 5 MG Folic Acid (Folvite Tab) 1 mg QAM PO 12/29/16 09:00 01/28/17 08:59 12/31/16 08:55 1 MG Morphine Sulfate 15 mg Q8H PRN PO 12/30/16 16:00 01/13/17 15:59 12/31/16 05:49 15 MG Lidocaine HCl/ Diphenhydramine HCl/Al Hydroxide/ Mg Hydroxide/ Glycerin/Barcode (VISCOUS LIDOCAINE 2% Soln/ Benadryl Syrup/ Maalox Susp/ Glycerin Anhydrous Soln) QID PRN VA 12/30/16 20:30 01/29/17 20:29 Benzocaine (Orajel 2% Oral Gel) 1 appln TID PRN VA 12/31/16 09:30 01/30/17 09:29
[2016-12-31 16:07] VITALS: BP 91/66; PULSE 71; TEMP 36.4; O2SAT 97
--- NOTE | 2016-12-31 17:13 | PROGRESS NOTE ---
DATE: 12/31/2016 SUBJECTIVE: Nya looks largely the same today. She is having some abdominal pain and has a heating pad in place. Discharge plans were uncertain. She apparently is waiting to see Dr. Jaimes and Dr. Arredondo of hematology has been by The tremor looks out the same and actually perhaps a little better today and the plans that I have outlined previously should apply i.e. I will be happy to take a look at in the office about 4-5 weeks. In the interim, she is going to keep track of her headaches' nature, frequency and severity and we are going to look at the tremor at that point when she is hopefully stable in terms of her medications and her underlying medical conditions are reasonably stable as well. We can then make a decision about how to medicate her neurologica issues if at all. One of the options in light of the migraines and the tremor is to use beta blockers which might have beneficial effects on both entities, but unfortunately her depression might make these agents a bad choice. Mysoline may help the tremor but would not aid the headadche and neurontin remians a weak option for both as well. All this remains an outpatient decision and neurology is currently going to sign off her case and not going to offer any treatment while she is here in the hospital for fear of muddying the snell further. JEANNIE
--- NOTE | 2016-12-31 18:22 | Hematology/Oncology Prog Note ---
Hematology/Onc Progress Note Date of Service December 31, 2016. Medications Medications Administered Medications (Trade) Dose Ordered Sig/Tamar Route Start Time Stop Time Status Last Admin Dose Admin Sodium Chloride (Nss 1000ml) 1,000 ml @ 999 mls/hr Q1H1M STAT IV 12/26/16 18:11 12/26/16 19:11 DC 12/26/16 18:45 999 MLS/HR Morphine Sulfate (MoRPHine SULFATE INJ) 4 mg STK-MED ONCE .ROUTE 12/26/16 18:41 12/26/16 18:42 DC 12/26/16 18:46 4 MG Morphine Sulfate 2 mg 2 mg STK-MED ONCE .ROUTE 12/26/16 18:42 12/26/16 18:43 DC 12/26/16 18:46 2 MG Sodium Chloride 500 ml @ 999 mls/hr Q31M STAT IV 12/26/16 20:40 12/26/16 21:10 DC 12/26/16 20:58 999 MLS/HR Sodium Chloride (Nss 1000ml) 1,000 ml @ 40 mls/hr Q24H IV 12/26/16 21:15 01/25/17 21:14 12/31/16 08:57 40 MLS/HR Acetaminophen 650 mg 650 mg Q4H PRN PO 12/26/16 21:15 01/25/17 21:14 12/30/16 22:20 650 MG Prochlorperazine Edisylate/Syringe (Compazine Inj/ Syringe) 10 ml @ 5 mls/min NOW STAT IV 12/26/16 21:45 12/26/16 21:46 DC 12/26/16 23:05 5 MLS/MIN Morphine Sulfate (MoRPHine SULFATE INJ) 4 mg Q4H PRN IV 12/26/16 21:30 12/29/16 11:20 DC 12/29/16 10:16 4 MG Baclofen (Lioresal Tab) 10 mg TID PRN PO 12/26/16 21:30 01/25/17 21:29 12/31/16 08:53 10 MG Celecoxib (CeleBREX CAP) 400 mg BID PO 12/27/16 09:00 01/26/17 08:59 12/31/16 08:55 400 MG Fluoxetine HCl (Prozac Cap) 60 mg HS PO 12/27/16 21:00 01/26/17 20:59 12/30/16 20:30 60 MG Fluticasone Propionate (Flonase Nasal [place]) 2 sprays DAILY ROSARIO 12/27/16 09:00 01/26/17 08:59 12/31/16 08:56 2 SPRAYS Loratadine (Claritin Tab) 10 mg DAILY PO 12/27/16 09:00 01/26/17 08:59 12/31/16 08:53 10 MG Lorazepam (Ativan Tab) 0.5 mg TID PRN PO 12/26/16 21:30 01/25/17 21:29 12/31/16 09:02 0.5 MG Montelukast Sodium (Singulair Tab) 10 mg HS PO 12/27/16 21:00 01/26/17 20:59 12/30/16 20:30 10 MG Pantoprazole Sodium (Protonix Tab) 40 mg BID PO 12/27/16 09:00 01/26/17 08:59 12/31/16 08:54 40 MG Phenazopyridine HCl (Pyridium Tab) 200 mg TID PRN PO 12/26/16 21:30 01/25/17 21:29 12/31/16 08:54 200 MG Topiramate (Topamax Tab) 100 mg BID PO 12/27/16 09:00 01/26/17 08:59 12/31/16 08:53 100 MG Pentosan Polysulfate Sodium (Elmiron) 300 mg BID PO 12/27/16 09:00 01/26/17 08:59 12/31/16 08:55 300 MG Metoclopramide HCl 5 mg 5 mg TID PRN PO 12/26/16 23:15 01/25/17 23:14 12/28/16 08:29 5 MG Magnesium Sulfate/ Prmx (Magnesium Sulfate/Premixed D5W) 100 ml @ 100 mls/hr 0830 ONCE IV 12/28/16 08:30 12/28/16 09:29 DC 12/28/16 08:47 100 MLS/HR Potassium Chloride (Klor-Con Tab) 40 meq 0830 ONCE PO 12/28/16 08:30 12/28/16 08:31 DC 12/28/16 08:47 40 MEQ Folic Acid (Folvite Tab) 1 mg QAM PO 12/29/16 09:00 6/12/17 08:59 12/31/16 08:55 1 MG Morphine Sulfate (MoRPHine SULFATE INJ) 4 mg Q3HWA PRN IV 12/29/16 12:00 12/30/16 15:57 DC 12/30/16 11:17 4 MG Morphine Sulfate (MoRPHine SULFATE IR TAB) 15 mg Q8H PRN PO 12/30/16 16:00 12/31/16 17:14 DC 12/31/16 05:49 15 MG Subjective Mrs. Geronimo is a 36 yo CF who hematology is following for pancytopenia, felt to be drug induced. She reports feeling overall fair. Last week, she had epistaxis , but no further episodes of this. She will notice bleeding of her gingiva with brushing of her teeth. She is not having blood in her ostomy bag and her last bag change was yesterday, no bleeding around stoma (change prior there was). She is not having hematuria. She is spontaneously bruising on her lower extremities. She reports appetite is fine. She is not having nausea or vomiting. she would like her pain regimen increased for uncontrolled pain attributed to possible active Crohn's disease. She states her GI locally and GI at are working together to control pain. Review of Systems: Constitutional: + fatigue, No fever Abdomen: + see HPI Musculoskeletal: No calf pain Female : No hematuria Heme: + abnormal bleeding/bruising, No clotting problems Skin: No itch, No rash Vital Signs Vital Signs Past 12 Hours Date Time Temp Pulse Resp B/P Pulse Ox O2 Delivery O2 Flow Rate FiO2 12/31/16 16:07 36.4 71 16 91/66 97 Room Air 12/31/16 15:17 Room Air 12/31/16 09:00 96 Room Air 12/31/16 07:33 36.7 78 16 92/58 96 Physical Exam Constitutional: General Apperance: well-developed Level of Distress: NAD, chronically ill Lungs: Respiratory Effort: no dyspnea Auscuitation: breath sounds normal Cardiovascular: Heart Auscultation: RRR Abdomen: Bowel Sounds: normal Inspection & Palpation: soft, non-distended, pertinent finding (lower abdominal bilaterally tender to palpation; ostomy present in RLQ) Extremities: no edema (or calf tenderness) Laboratory 12/29/16 06:00 12/30/16 05:17 12/31/16 05:37 12/29/16 06:00 12/30/16 05:17 12/31/16 05:37 Test 12/29/16 06:00 12/30/16 05:17 12/31/16 05:37 Red Blood Count 3.80 M/uL (4.2-5.4) 3.67 M/uL (4.2-5.4) 3.65 M/uL (4.2-5.4) Mean Corpuscular Volume 85.3 fL (80-100) 85.0 fL (80-100) 85.2 fL (80-100) Mean Corpuscular Hemoglobin 28.2 pg (25-34) 27.0 pg (25-34) 27.4 pg (25-34) Mean Corpuscular Hemoglobin Concent 33.0 g/dl (32-36) 31.7 g/dl (32-36) 32.2 g/dl (32-36) RDW Standard Deviation 46.0 fL (36.4-46.3) 46.2 fL (36.4-46.3) 46.3 fL (36.4-46.3) RDW Coefficient of Variation 14.7 % (11.5-14.5) 14.7 % (11.5-14.5) 14.8 % (11.5-14.5) Mean Platelet Volume 10.6 fL (7.4-10.4) 9.7 fL (7.4-10.4) 9.7 fL (7.4-10.4) Anion Gap 8.0 mmol/L (3-11) 9.0 mmol/L (3-11) 5.0 mmol/L (3-11) Est Creatinine Clear Calc Drug Dose 70.5 ml/min 69.1 ml/min 69.9 ml/min Estimated GFR () 91.0 83.4 83.4 Estimated GFR (Non- 78.5 71.9 71.9 BUN/Creatinine Ratio 2.2 (10-20) 4.6 (10-20) 6.7 (10-20) Calcium Level 8.0 mg/dl (8.5-10.1) 7.7 mg/dl (8.5-10.1) 7.5 mg/dl (8.5-10.1) Magnesium Level 2.0 mg/dl (1.8-2.4) Date/Time Source Procedure Growth Status 12/29/16 11:00 Urine , Clean Catch Urine Culture - Final MORE THAN THREE TYPES OF ORGANISMS MS... Complete Assessment & Plan 1. 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 H/o Crohn's disease- patient reports hospitalized for pain control * CT scan unrevealing? No obstructions * Per GI, skeptical that patient is not on any control meds for CD * GI conferring with patient's GI at re: patient's compliance, concern for drug seeking Will continue to follow patient while hospitalized, monitor counts.
[2016-12-31] MEDS: LIDOCAINE HCL 2% VISCOUS SOLN 60 ML, DiphenhydrAMINE HCL SYRUP 150 MG, ALUMINUM/MAGNESI... MT PRN ×4 (18:48)
[2016-12-31] MEDS ORDERED: NURSING VERBAL MED ORDER ONE (20:00)
[2016-12-31] MEDS: FLUOXETINE HCL 20 MG CAP PO SCH (20:07)
[2016-12-31] MEDS: MONTELUKAST SOD 10 MG TAB PO SCH (20:07)
[2017-01-01] VITALS (7 sets, daily range): BP systolic 85–95; BP diastolic 51–60; PULSE 52–81; TEMP 36.4–36.8; O2SAT 95–98
[2017-01-01] MEDS: ACETAMINOPHEN 325 MG TAB PO PRN ×2 (03:05→08:37)
[2017-01-01] MEDS: FLUTICASONE PROPIONATE NA SPR 16 GM BTL NAE SCH (08:36)
[2017-01-01] MEDS: CeleBREX 200 MG CAP PO SCH ×2 (08:38→20:32)
[2017-01-01] MEDS: LORATADINE 10 MG TAB PO SCH (08:38)
[2017-01-01] MEDS: PANTOprazole SOD 40 MG TAB PO SCH ×2 (08:39→20:32)
[2017-01-01] MEDS: PENTOSAN POLYSULFATE SODIUM 100 MG CAP PO SCH ×2 (08:39→20:40)
[2017-01-01] MEDS: TOPIRAMATE 100 MG TAB PO SCH ×2 (08:40→20:32)
[2017-01-01] MEDS: MoRPHine SULFATE IR 15 MG TAB (IMMEDIATE RELEASE) PO PRN ×2 (08:41→21:55)
[2017-01-01] MEDS: LIDOCAINE HCL 2% VISCOUS SOLN 60 ML, DiphenhydrAMINE HCL SYRUP 150 MG, ALUMINUM/MAGNESI... MT PRN ×8 (08:42→18:37)
[2017-01-01] MEDS: SODIUM CHLORIDE 0.9% 1000ML 1,000 ML IV SCH (08:44)
--- NOTE | 2017-01-01 09:32 | Gastroenterology Progress Note ---
Progress Note Date of Service: January 01, 2017 Subjective Pt evaluation today including: conversation w/ patient, physical exam, lab review, review of studies, review of inpatient medication list Patient reports continued abdominal pain at the site of her ostomy. She states she requires opioid analgesics to control her pain. Tolerating a regular diet but remains quite neutropenic and is on neutropenic precautions. Would like to start treatment for her Crohn's disease. Dr. Jaimes did speak with Dr. Kan and she was recommended to follow up with his office upon discharge. I informed the patient of this. Review of Systems Constitutional: No chills, No fever Abdomen: + see HPI Neuro: + problem reported (tremor) Medications Current Inpatient Medications Medications (Trade) Dose Ordered Sig/Tamar Route Start Time Stop Time Status Last Admin Dose Admin Sodium Chloride (Nss 1000ml) 1,000 ml @ 40 mls/hr Q24H IV 12/26/16 21:15 01/25/17 21:14 01/01/17 08:44 40 MLS/HR Acetaminophen (Tylenol Tab) 650 mg Q4H PRN PO 12/26/16 21:15 01/25/17 21:14 01/01/17 08:37 650 MG Baclofen (Lioresal Tab) 10 mg TID PRN PO 12/26/16 21:30 01/25/17 21:29 12/31/16 08:53 10 MG Celecoxib (CeleBREX CAP) 400 mg BID PO 12/27/16 09:00 01/26/17 08:59 01/01/17 08:38 400 MG Fluoxetine HCl (Prozac Cap) 60 mg HS PO 12/27/16 21:00 01/26/17 20:59 12/31/16 20:07 60 MG Fluticasone Propionate (Flonase Nasal [place]) 2 sprays DAILY ROSARIO 12/27/16 09:00 01/26/17 08:59 01/01/17 08:36 2 SPRAYS Levalbuterol (Xopenex Hfa Inhaler) 2 puffs Q4 PRN INH 12/26/16 21:30 01/25/17 21:29 Loratadine (Claritin Tab) 10 mg DAILY PO 12/27/16 09:00 01/26/17 08:59 01/01/17 08:38 10 MG Lorazepam (Ativan Tab) 0.5 mg TID PRN PO 12/26/16 21:30 01/25/17 21:29 12/31/16 23:32 0.5 MG Montelukast Sodium (Singulair Tab) 10 mg HS PO 12/27/16 21:00 01/26/17 20:59 12/31/16 20:07 10 MG Pantoprazole Sodium (Protonix Tab) 40 mg BID PO 12/27/16 09:00 01/26/17 08:59 01/01/17 08:39 40 MG Phenazopyridine HCl (Pyridium Tab) 200 mg TID PRN PO 12/26/16 21:30 01/25/17 21:29 12/31/16 08:54 200 MG Prochlorperazine Maleate (Compazine Tab) 10 mg TID PRN PO 12/26/16 21:30 01/25/17 21:29 Topiramate (Topamax Tab) 100 mg BID PO 12/27/16 09:00 01/26/17 08:59 01/01/17 08:40 100 MG Pentosan Polysulfate Sodium (Elmiron) 300 mg BID PO 12/27/16 09:00 01/26/17 08:59 01/01/17 08:39 300 MG Metoclopramide HCl (Reglan Tab) 5 mg TID PRN PO 12/26/16 23:15 01/25/17 23:14 12/28/16 08:29 5 MG Folic Acid 1 mg QAM PO 12/29/16 09:00 01/28/17 08:59 01/01/17 08:39 1 MG Lidocaine HCl/ Diphenhydramine HCl/Al Hydroxide/ Mg Hydroxide/ Glycerin/Barcode (VISCOUS LIDOCAINE 2% Soln/ Benadryl Syrup/ Maalox Susp/ Glycerin Anhydrous Soln) QID PRN MT 12/30/16 20:30 01/29/17 20:29 01/01/17 08:42 5 ML Benzocaine (Orajel 2% Oral Gel) 1 appln TID PRN MT 12/31/16 09:30 01/30/17 09:29 Morphine Sulfate (MoRPHine SULFATE IR TAB) 30 mg Q8H PRN PO 12/31/16 20:15 01/14/17 20:14 01/01/17 08:41 30 MG Objective Vital Signs Date Time Temp Pulse Resp B/P Pulse Ox O2 Delivery O2 Flow Rate FiO2 01/01/17 07:33 36.4 52 16 92/60 98 Room Air 01/01/17 00:00 Room Air 01/01/17 00:00 36.6 59 12 95/60 96 12/31/16 20:00 Room Air 12/31/16 16:07 36.4 71 16 91/66 97 Room Air 12/31/16 15:17 Room Air Physical Exam General Appearance: no apparent distress ENT: hearing grossly normal Respiratory/Chest: lungs clear, normal breath sounds, no respiratory distress Cardiovascular: regular rate, rhythm, no gallop, no murmur Abdomen: normal bowel sounds, soft, + pertinent finding (ostomy with softly formed stool in bag. No blood.) Neurologic/Psych: alert, normal mood/affect, oriented x 3 Assessment and Plan Patient is a 36 year-old female with a history of Crohn's colitis and questionable history of colon cancer status post total colectomy with ileostomy presenting with RLQ pain and abnormal imaging questioning a PSBO. 1. Continue diet as tolerated. Not felt surgical candidate at this time. 2. I informed the patient that opioid analgesics should be avoided as she presented with obstructive symptoms and these medications decrease GI motility. 3. I informed Nya that by the nature of her pancytopenia, she is not a good candidate for Crohn's treatment. Data is not good on use of Pentasa as monotherapy in Crohn's. Immunosuppressive agents would be contraindicated at this time. Will start her on Entocort 9 mg daily as this is a topical steroid with minimal systemic absorption. 4. Patient should follow up with Dr. Kan of [facility] upon discharge for additional recommendations about ongoing treatment of her Crohn's disease. Agree with XIMENA Montero as above Abd: Soft, NT, ND, Ostomy with brown semi-liquid stool Continue current therapy Followup with Primary GI provider Dr. Kan at [facility] upon discharge.
[2017-01-01] MEDS: BUDESONIDE EC 3 MG CAP PO SCH (10:15)
[2017-01-01] MEDS: MoRPHine SULFATE 2 MG/ML CARP IV PRN (14:27)
[2017-01-01] MEDS ORDERED: OPTIRAY 320 IV PRN (15:45)
--- NOTE | 2017-01-01 15:52 | Progress Note ---
Internal Med Progress Note Date of Service: January 01, 2017. Provider Documentation: SUBJECTIVE: The patient was seen and examined Complains of abdominal pain No nausea and or vomiting Has some bloating OBJECTIVE: Vital Signs-as noted below Exam: General-no distress at rest Eyes-normal ENT-normal Neck-supple Lungs-Clear to ausucltate bilaterally Heart-Regular,no murmur appreciated Abdomen-Soft ,tender Colostomy site intact Bowel sound sluggish Extremities-no edema [id number] Lab data as noted below. ASSESSMENT & PLAN: Partial Small bowel obstruction. Could have a flare up of Crohn with more diarrhea CT:Several slightly distended loops of small bowel within the soft tissue pelvic region. Possibility of adhesions must be a consideration, with no well-defined evidence for an obstructing mass. Presented with Abdominal pain associated with increase ileostomy output Surgery consulted, reviewed CT and No SBO Appreciate GI input-no medication for Crohns as because of Pancytopenia Dr. Jaimes will discuss case with Dr. Kan at [facility] for further input since pt follows with Dr. Kan regularly Tolerated low fat diet Continued Home dose of Pain medication HYPOTENSION Likely due to hypovolemia from diarrhea Afebrile, no leukocytosis, no tachycardia, lactic acid normal stable ELECTROLYTES IMBALANCE Secondary to diarrhea Supplement and recheck LOW FOLATE Continue folic acid supplement MIGRAINE Reports TOBAR similar to chronic migraines Try combination of IV Toradol, IV Benadryl, IV compazine which worked for her in the past Neuro on board recommended magnesium and riboflavin Stable TREMORS Neuro on board recommend to start any treatment as an outpatient She will follow up with neuro CHRONIC THROMBOCYTOPENIA PANCYTOPENIA Plt count 52, WBC 2.22 RBC 3.65 Possible related to recent abx used as per hematology Hematology Dr. Arredondo on board Monitor-Counts are improving ASTHMA Continue home inhaler and Singulair Stable CHRONIC PAIN Takes PO morphine at home prescribed by PCP Dr. Farrell- verified on [place] drug monitoring data base with no issues Resume Po home dose morphine Will not change pain med on discharge DEPRESSION/ ANXIETY Continue home meds DVT PROPHYLAXIS SCD's due to thrombocytopenia CODE STATUS FULL CODE Consultants: [facility] HEMATOLOGY NEUROLOGY Vital Signs: Date Time Temp Pulse Resp B/P Pulse Ox O2 Delivery O2 Flow Rate FiO2 01/01/17 15:12 36.8 81 16 90/54 95 Room Air 01/01/17 08:00 Room Air 01/01/17 07:33 36.4 52 16 92/60 98 Room Air 01/01/17 00:00 Room Air 01/01/17 00:00 36.6 59 12 95/60 96 12/31/16 20:00 Room Air 12/31/16 16:07 36.4 71 16 91/66 97 Room Air Lab Results: Results Past 24 Hours Test 01/01/17 15:39 Range/Units Microbiology Results 01/01/17 Urine Culture, Tony Batch Pending
[2017-01-01] MEDS ORDERED: MoRPHine SULFATE IR 15 MG TAB (IMMEDIATE RELEASE) PO PRN ×2 (19:58)
[2017-01-01] MEDS: BOOST BREEZE NUTRITION DRINK 1 BOX PO SCH (20:31)
[2017-01-01] MEDS: MONTELUKAST SOD 10 MG TAB PO SCH (20:33)
[2017-01-01] MEDS: FLUOXETINE HCL 20 MG CAP PO SCH (20:34)
[2017-01-02] VITALS (7 sets, daily range): BP systolic 81–95; BP diastolic 53–62; PULSE 60–91; TEMP 36.4–36.8; O2SAT 90–98
[2017-01-02] MEDS: MoRPHine SULFATE 2 MG/ML CARP IV PRN (00:14)
[2017-01-02 06:02] LABS: HEMATOCRIT 30.7 % (37-47); MEAN CELL VOLUME 86.5 fL (80-100); MEAN CORPUSCULAR HEMOGLOBIN 27.3 pg (25-34); MEAN CORPUSCULAR HGB CONC 31.6 g/dl (32-36); RED BLOOD COUNT 3.55 M/uL (4.2-5.4); WHITE BLOOD COUNT 2.07 K/uL (4.8-10.8)
[2017-01-02 06:03] LABS: MEAN PLATELET VOLUME 10.8 fL (7.4-10.4); PLATELET COUNT 49 K/uL (130-400)
[2017-01-02 06:35] LABS: BUN/CREATININE RATIO 15.7 (10-20); CALCIUM 7.5 mg/dl (8.5-10.1); CREATININE 0.83 mg/dl (0.60-1.20); PHOSPHORUS 3.7 mg/dl (2.5-4.9); POTASSIUM 4.3 mmol/L (3.5-5.1)
[2017-01-02] MEDS: LORATADINE 10 MG TAB PO SCH (08:28)
[2017-01-02] MEDS: FLUTICASONE PROPIONATE NA SPR 16 GM BTL NAE SCH (08:29)
[2017-01-02] MEDS: PHENAZOPYRIDINE HCL 200 MG TAB PO PRN (08:29)
[2017-01-02] MEDS: PANTOprazole SOD 40 MG TAB PO SCH ×2 (08:29→19:56)
[2017-01-02] MEDS: BOOST BREEZE NUTRITION DRINK 1 BOX PO SCH ×4 (08:29→22:53)
[2017-01-02] MEDS: TOPIRAMATE 100 MG TAB PO SCH ×2 (08:29→19:54)
[2017-01-02] MEDS: BUDESONIDE EC 3 MG CAP PO SCH (08:30)
[2017-01-02] MEDS: CeleBREX 200 MG CAP PO SCH ×2 (08:32→19:55)
[2017-01-02] MEDS: SODIUM CHLORIDE 0.9% 1000ML 1,000 ML IV SCH ×2 (08:33→22:53)
[2017-01-02] MEDS: LORAZEPAM 0.5 MG TAB PO PRN (08:38)
[2017-01-02] MEDS: MoRPHine SULFATE IR 15 MG TAB (IMMEDIATE RELEASE) PO PRN ×2 (08:40→23:26)
[2017-01-02] MEDS: LIDOCAINE HCL 2% VISCOUS SOLN 60 ML, DiphenhydrAMINE HCL SYRUP 150 MG, ALUMINUM/MAGNESI... MT PRN ×4 (09:58)
[2017-01-02] MEDS: PENTOSAN POLYSULFATE SODIUM 100 MG CAP PO SCH ×2 (10:46→19:56)
[2017-01-02] MEDS ORDERED: CEFTRIAXONE SOD INJ 1,000 MG in DEXTROSE 5% 50ML 50 ML IV ONE (12:00)
--- NOTE | 2017-01-02 15:03 | Hematology/Oncology Prog Note ---
Hematology/Onc Progress Note Date of Service January 02, 2017. Medications Medications Administered Medications (Trade) Dose Ordered Sig/Tamar Route Start Time Stop Time Status Last Admin Dose Admin Sodium Chloride (Nss 1000ml) 1,000 ml @ 999 mls/hr Q1H1M STAT IV 12/26/16 18:11 12/26/16 19:11 DC 12/26/16 18:45 999 MLS/HR Morphine Sulfate (MoRPHine SULFATE INJ) 4 mg STK-MED ONCE .ROUTE 12/26/16 18:41 12/26/16 18:42 DC 12/26/16 18:46 4 MG Morphine Sulfate 2 mg 2 mg STK-MED ONCE .ROUTE 12/26/16 18:42 12/26/16 18:43 DC 12/26/16 18:46 2 MG Sodium Chloride 500 ml @ 999 mls/hr Q31M STAT IV 12/26/16 20:40 12/26/16 21:10 DC 12/26/16 20:58 999 MLS/HR Sodium Chloride (Nss 1000ml) 1,000 ml @ 40 mls/hr Q24H IV 12/26/16 21:15 01/25/17 21:14 01/02/17 08:33 40 MLS/HR Acetaminophen 650 mg 650 mg Q4H PRN PO 12/26/16 21:15 01/25/17 21:14 01/01/17 08:37 650 MG Prochlorperazine Edisylate/Syringe (Compazine Inj/ Syringe) 10 ml @ 5 mls/min NOW STAT IV 12/26/16 21:45 12/26/16 21:46 DC 12/26/16 23:05 5 MLS/MIN Morphine Sulfate (MoRPHine SULFATE INJ) 4 mg Q4H PRN IV 12/26/16 21:30 12/29/16 11:20 DC 12/29/16 10:16 4 MG Baclofen (Lioresal Tab) 10 mg TID PRN PO 12/26/16 21:30 01/25/17 21:29 12/31/16 08:53 10 MG Celecoxib (CeleBREX CAP) 400 mg BID PO 12/27/16 09:00 01/26/17 08:59 01/02/17 08:32 400 MG Fluoxetine HCl (Prozac Cap) 60 mg HS PO 12/27/16 21:00 01/26/17 20:59 01/01/17 20:34 60 MG Fluticasone Propionate (Flonase Nasal [place]) 2 sprays DAILY ROSARIO 12/27/16 09:00 01/26/17 08:59 01/02/17 08:29 2 SPRAYS Loratadine (Claritin Tab) 10 mg DAILY PO 12/27/16 09:00 01/26/17 08:59 01/02/17 08:28 10 MG Lorazepam (Ativan Tab) 0.5 mg TID PRN PO 12/26/16 21:30 01/25/17 21:29 01/02/17 08:38 0.5 MG Montelukast Sodium (Singulair Tab) 10 mg HS PO 12/27/16 21:00 01/26/17 20:59 01/01/17 20:33 10 MG Pantoprazole Sodium (Protonix Tab) 40 mg BID PO 12/27/16 09:00 01/26/17 08:59 01/02/17 08:29 40 MG Phenazopyridine HCl (Pyridium Tab) 200 mg TID PRN PO 12/26/16 21:30 01/25/17 21:29 01/02/17 08:29 200 MG Topiramate (Topamax Tab) 100 mg BID PO 12/27/16 09:00 01/26/17 08:59 01/02/17 08:29 100 MG Pentosan Polysulfate Sodium (Elmiron) 300 mg BID PO 12/27/16 09:00 01/26/17 08:59 01/02/17 10:46 300 MG Metoclopramide HCl 5 mg 5 mg TID PRN PO 12/26/16 23:15 01/25/17 23:14 12/28/16 08:29 5 MG Magnesium Sulfate/ Prmx (Magnesium Sulfate/Premixed D5W) 100 ml @ 100 mls/hr 0830 ONCE IV 12/28/16 08:30 12/28/16 09:29 DC 12/28/16 08:47 100 MLS/HR Potassium Chloride (Klor-Con Tab) 40 meq 0830 ONCE PO 12/28/16 08:30 12/28/16 08:31 DC 12/28/16 08:47 40 MEQ Folic Acid (Folvite Tab) 1 mg QAM PO 12/29/16 09:00 6/12/17 08:59 01/02/17 08:30 1 MG Morphine Sulfate (MoRPHine SULFATE INJ) 4 mg Q3HWA PRN IV 12/29/16 12:00 12/30/16 15:57 DC 12/30/16 11:17 4 MG Morphine Sulfate 15 mg Q8H PRN PO 12/30/16 16:00 12/31/16 17:14 DC 12/31/16 05:49 15 MG Lidocaine HCl/ Diphenhydramine HCl/Al Hydroxide/ Mg Hydroxide/ Glycerin/Barcode (VISCOUS LIDOCAINE 2% Soln/ Benadryl Syrup/ Maalox Susp/ Glycerin Anhydrous Soln) QID PRN MT 12/30/16 20:30 01/29/17 20:29 01/02/17 09:58 5 ML Morphine Sulfate (MoRPHine SULFATE IR TAB) 30 mg Q8H PRN PO 12/31/16 20:15 01/14/17 20:14 01/02/17 08:40 30 MG Budesonide (Entocort EC Cap) 9 mg QAM PO 01/01/17 10:00 01/31/17 09:59 01/02/17 08:30 9 MG Morphine Sulfate (MoRPHine SULFATE INJ) 2 mg Q8H PRN IV 01/01/17 13:15 01/15/17 13:14 01/02/17 00:14 2 MG Enteral Nutritional Formula 1 box 1 box TID PO 01/01/17 20:00 01/31/17 19:59 01/02/17 08:29 1 BOX Ceftriaxone Sodium/Dextrose (Rocephin Inj/D5 50ml) 60 ml @ 100 mls/hr 1200 ONCE IV 01/02/17 12:00 01/02/17 12:35 DC 01/02/17 12:25 100 MLS/HR Subjective Mrs. Geronimo is a 36 yo CF who hematology is following for pancytopenia, felt to be drug induced (Macrobid). She continues to feel overall fair. She reports appetite is fine. She is not having nausea or vomiting. As of yesterday, she feels that she developed a urinary tract infection (which she had treated with Macrobid prior to this admission). She feels that she may have an infection as she is having consistent pelvic pain and urinary frequency; she denies hematuria or dysuria. Culture is pending. Her bruising on her lower extremities is stable. She is not having any from any sites. Her abdominal pain, which she feels is from Crohn 's is currently being treated with long acting morphine with some control. No further adjustments will be made however ; this will be deferred to her GI physician at [facility]. She was started on Enterocort this hospitalization. Review of Systems: Abdomen: + see HPI Female : + see HPI Heme: + see HPI Vital Signs Vital Signs Past 12 Hours Date Time Temp Pulse Resp B/P Pulse Ox O2 Delivery O2 Flow Rate FiO2 01/02/17 08:30 98 Room Air 01/02/17 07:04 36.8 63 16 95/60 94 Room Air Physical Exam Constitutional: General Apperance: well-developed Level of Distress: NAD, chronically ill Lungs: Respiratory Effort: no dyspnea Auscuitation: breath sounds normal Cardiovascular: Heart Auscultation: RRR Abdomen: Bowel Sounds: normal Inspection & Palpation: soft, non-distended, pertinent finding (lower abdominal bilaterally tender to palpation; ostomy present in RLQ) Extremities: no edema (or calf tenderness), pertinent finding (Brusing on bilateral lower extremities stable.) Laboratory 12/31/16 05:37 01/02/17 05:37 12/31/16 05:37 01/02/17 05:37 Test 12/31/16 05:37 01/02/17 05:37 Red Blood Count 3.65 M/uL (4.2-5.4) 3.55 M/uL (4.2-5.4) Mean Corpuscular Volume 85.2 fL (80-100) 86.5 fL (80-100) Mean Corpuscular Hemoglobin 27.4 pg (25-34) 27.3 pg (25-34) Mean Corpuscular Hemoglobin Concent 32.2 g/dl (32-36) 31.6 g/dl (32-36) RDW Standard Deviation 46.3 fL (36.4-46.3) 46.2 fL (36.4-46.3) RDW Coefficient of Variation 14.8 % (11.5-14.5) 14.5 % (11.5-14.5) Mean Platelet Volume 9.7 fL (7.4-10.4) 10.8 fL (7.4-10.4) Anion Gap 5.0 mmol/L (3-11) 4.0 mmol/L (3-11) Est Creatinine Clear Calc Drug Dose 69.9 ml/min 87.6 ml/min Estimated GFR () 83.4 104.4 Estimated GFR (Non- 71.9 90.1 BUN/Creatinine Ratio 6.7 (10-20) 15.7 (10-20) Calcium Level 7.5 mg/dl (8.5-10.1) 7.5 mg/dl (8.5-10.1) Phosphorus Level 3.7 mg/dl (2.5-4.9) Magnesium Level 2.0 mg/dl (1.8-2.4) Preliminary urinary culture positive for gram-negative rods. Assessment & Plan 1. 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 H/o Crohn's disease- patient reports hospitalized for pain control * CT scan ? possible partial SBO on admission * Per GI, skeptical that patient is not on any control meds for CD * GI conferring with patient's GI at re: patient's compliance, concern for drug seeking as IBD pain not typically treated with narcotics * Per review of the chart, no adjustments in narcotic regimen will be done during this hospitalization, deferred to GI at [facility] on discharge * Patient was started on Enterocort this hospitalization 3. UTI- gram negative preliminary result from culture, sensitivity pending * Management per primary team * Received 1 dose of Rocephin today * Recommend to continue to avoid Macrobid, even Bactrim can be implicated with drug induced pancytopenia Will continue to follow patient while hospitalized, monitor counts. I performed history and physical examination of the patient . I have discussed the patient's case, impression and plan with Jeri Peterson PA-C. Her note reflects my findings and plan. Dr. Amador Foster Hem/Onc
--- NOTE | 2017-01-02 16:17 | Progress Note ---
Internal Med Progress Note Date of Service: January 02, 2017. Provider Documentation: SUBJECTIVE: The patient was seen and examined Complains of lower abdominal pain with dysuria No nausea and or vomiting OBJECTIVE: Vital Signs-as noted below Exam: General-no distress at rest Eyes-normal ENT-normal Neck-supple Lungs-Clear to ausucltate bilaterally Heart-Regular,no murmur appreciated Abdomen-Soft ,tender in hypogastrium Colostomy site intact Bowel sound sluggish Extremities-no edema [id number] Lab data as noted below. ASSESSMENT & PLAN: Partial Small bowel obstruction. Could have a flare up of Crohn with more diarrhea CT:Several slightly distended loops of small bowel within the soft tissue pelvic region. Possibility of adhesions must be a consideration, with no well-defined evidence for an obstructing mass. Presented with Abdominal pain associated with increase ileostomy output Surgery consulted, reviewed CT and No SBO Appreciate GI input-no medication for Crohns as because of Pancytopenia Dr. Jaimes will discuss case with Dr. Kan at [facility] for further input since pt follows with Dr. Kan regularly Tolerated low fat diet Continued Home dose of Pain medication Tolerating diet and pain is controlled UTI Gm negative bacilli in Urine culture Ceftriaxone started Await sensitivity HYPOTENSION Likely due to hypovolemia from diarrhea Afebrile, no leukocytosis, no tachycardia, lactic acid normal stable ELECTROLYTES IMBALANCE Secondary to diarrhea Supplement and recheck-better LOW FOLATE Continue folic acid supplement MIGRAINE Reports TOBAR similar to chronic migraines Try combination of IV Toradol, IV Benadryl, IV compazine which worked for her in the past Neuro on board recommended magnesium and riboflavin Stable TREMORS Neuro on board recommend to start any treatment as an outpatient She will follow up with neuro CHRONIC THROMBOCYTOPENIA PANCYTOPENIA Plt count 52, WBC 2.22 RBC 3.65 Possible related to recent abx used as per hematology Hematology Dr. Arredondo on board Monitor-Counts are improving ASTHMA Continue home inhaler and Singulair Stable CHRONIC PAIN Takes PO morphine at home prescribed by PCP Dr. Farrell- verified on [place] drug monitoring data base with no issues Resume Po home dose morphine Will not change pain med on discharge DEPRESSION/ ANXIETY Continue home meds DVT PROPHYLAXIS SCD's due to thrombocytopenia CODE STATUS FULL CODE Consultants: GASTRO SURGERY HEMATOLOGY NEUROLOGY Likely to be discharged tomorrow Vital Signs: Date Time Temp Pulse Resp B/P Pulse Ox O2 Delivery O2 Flow Rate FiO2 01/02/17 16:09 36.4 74 18 81/53 90 Room Air 01/02/17 08:30 98 Room Air 01/02/17 07:04 36.8 63 16 95/60 94 Room Air 01/02/17 00:09 60 16 95/62 97 Room Air 01/02/17 00:00 Room Air 01/01/17 23:50 36.4 68 20 85/51 97 Room Air 01/01/17 21:48 89/55 01/01/17 21:44 88/54 Lab Results: Results Past 24 Hours Test 01/02/17 05:37 01/02/17 15:41 Range/Units White Blood Count 2.07 4.8-10.8 K/uL Red Blood Count 3.55 4.2-5.4 M/uL Hemoglobin 9.7 12.0-16.0 g/dL Hematocrit 30.7 37-47 % Mean Corpuscular Volume 86.5 80-100 fL Mean Corpuscular Hemoglobin 27.3 25-34 pg Mean Corpuscular Hemoglobin Concent 31.6 32-36 g/dl RDW Standard Deviation 46.2 36.4-46.3 fL RDW Coefficient of Variation 14.5 11.5-14.5 % Platelet Count 49 130-400 K/uL Mean Platelet Volume 10.8 7.4-10.4 fL Sodium Level 145 136-145 mmol/L Potassium Level 4.3 3.5-5.1 mmol/L Chloride Level 114 98-107 mmol/L Carbon Dioxide Level 27 21-32 mmol/L Anion Gap 4.0 3-11 mmol/L Blood Urea Nitrogen 13 7-18 mg/dl Creatinine 0.83 0.60-1.20 mg/dl Est Creatinine Clear Calc Drug Dose 87.6 ml/min Estimated GFR () 104.4 Estimated GFR (Non- 90.1 BUN/Creatinine Ratio 15.7 10-20 Random Glucose 94 70-99 mg/dl Calcium Level 7.5 8.5-10.1 mg/dl Phosphorus Level 3.7 2.5-4.9 mg/dl Magnesium Level 2.0 1.8-2.4 mg/dl Bedside Glucose 120 70-90 mg/dl Microbiology Results 01/01/17 Urine Culture - Preliminary, Resulted Gram Negative Bacilli
[2017-01-02] MEDS ORDERED: NURSING VERBAL MED ORDER ONE (16:30)
[2017-01-02] MEDS ORDERED: SODIUM CHLORIDE 0.9% 500ML 500 ML IV ONE (17:15)
[2017-01-02] MEDS: FLUOXETINE HCL 20 MG CAP PO SCH (19:57)
[2017-01-02] MEDS: MONTELUKAST SOD 10 MG TAB PO SCH (19:58)
[2017-01-03 07:46] VITALS: BP 100/65; PULSE 62; TEMP 36.6; O2SAT 94
[2017-01-03] MEDS ORDERED: CEFTRIAXONE SOD INJ 1,000 MG in DEXTROSE 5% 50ML 50 ML IV SCH (08:00)
[2017-01-03] MEDS: FLUTICASONE PROPIONATE NA SPR 16 GM BTL NAE SCH (09:57)
[2017-01-03] MEDS: LORATADINE 10 MG TAB PO SCH (09:59)
[2017-01-03] MEDS: PENTOSAN POLYSULFATE SODIUM 100 MG CAP PO SCH (10:01)
[2017-01-03] MEDS: CeleBREX 200 MG CAP PO SCH (10:01)
[2017-01-03] MEDS: TOPIRAMATE 100 MG TAB PO SCH (10:02)
[2017-01-03] MEDS: BUDESONIDE EC 3 MG CAP PO SCH (10:02)
[2017-01-03] MEDS: PANTOprazole SOD 40 MG TAB PO SCH (10:02)
[2017-01-03] MEDS: LORAZEPAM 0.5 MG TAB PO PRN (10:06)
[2017-01-03] MEDS: LIDOCAINE HCL 2% VISCOUS SOLN 60 ML, DiphenhydrAMINE HCL SYRUP 150 MG, ALUMINUM/MAGNESI... MT PRN ×4 (10:07)
[2017-01-03] MEDS: BOOST BREEZE NUTRITION DRINK 1 BOX PO SCH ×2 (10:08→13:19)
[2017-01-03] MEDS ORDERED: LEVOFLOXACIN 250 MG TAB PO ONE (11:00)
--- NOTE | 2017-01-03 11:26 | Progress Note ---
Internal Med Progress Note Date of Service: January 03, 2017. Provider Documentation: SUBJECTIVE: The patient was seen and examined Complains of lower abdominal pain with dysuria No nausea and or vomiting Urinary symptoms are better Abdominal symptoms are better too OBJECTIVE: Vital Signs-as noted below Exam: General-no distress at rest Eyes-normal ENT-normal Neck-supple Lungs-Clear to ausucltate bilaterally Heart-Regular,no murmur appreciated Abdomen-Soft ,tender in hypogastrium-decreased Colostomy site intact Bowel sound sluggish Extremities-no edema [id number] Lab data as noted below. ASSESSMENT & PLAN: Partial Small bowel obstruction. Could have a flare up of Crohn with more diarrhea CT:Several slightly distended loops of small bowel within the soft tissue pelvic region. Possibility of adhesions must be a consideration, with no well-defined evidence for an obstructing mass. Presented with Abdominal pain associated with increase ileostomy output Surgery consulted, reviewed CT and No SBO Appreciate GI input-no medication for Crohns as because of Pancytopenia Dr. Jaimes will discuss case with Dr. Kan at [facility] for further input since pt follows with Dr. Kan regularly Tolerated low fat diet Continued Home dose of Pain medication Tolerating diet and pain is controlled No more symptoms of Intestinal Obstruction UTI Gm negative bacilli in Urine culture Ceftriaxone started Await sensitivity-pansensitive Will give Levaquin for 7 days in total HYPOTENSION Likely due to hypovolemia from diarrhea Afebrile, no leukocytosis, no tachycardia, lactic acid normal stable ELECTROLYTES IMBALANCE Secondary to diarrhea Supplement and recheck-better LOW FOLATE Continue folic acid supplement MIGRAINE Reports TOBAR similar to chronic migraines Try combination of IV Toradol, IV Benadryl, IV compazine which worked for her in the past Neuro on board recommended magnesium and riboflavin Stable TREMORS Neuro on board recommend to start any treatment as an outpatient She will follow up with neuro CHRONIC THROMBOCYTOPENIA PANCYTOPENIA Plt count 52, WBC 2.22 RBC 3.65 Possible related to recent abx used as per hematology Hematology Dr. Arredondo on board Monitor-Counts are improving W Hematology will see her as an OP ASTHMA Continue home inhaler and Singulair Stable CHRONIC PAIN Takes PO morphine at home prescribed by PCP Dr. Farrell- verified on [place] drug monitoring data base with no issues Resume Po home dose morphine Will not change pain med on discharge-patient is OK with that DEPRESSION/ ANXIETY Continue home meds DVT PROPHYLAXIS SCD's due to thrombocytopenia CODE STATUS FULL CODE Consultants: GASTRO SURGERY HEMATOLOGY NEUROLOGY Discharge today She will make necessary appointments as discussed Vital Signs: Date Time Temp Pulse Resp B/P Pulse Ox O2 Delivery O2 Flow Rate FiO2 01/03/17 07:46 36.6 62 16 100/65 94 Room Air 01/03/17 00:00 Room Air 01/02/17 23:45 36.6 67 16 93/60 94 Room Air 01/02/17 20:00 Room Air 01/02/17 17:30 74 18 90/59 97 Room Air 01/02/17 16:09 36.4 74 18 81/53 90 Room Air 01/02/17 16:00 91 20 88/53 01/02/17 16:00 97 Room Air Lab Results: Results Past 24 Hours Test 01/02/17 15:41 Range/Units Bedside Glucose 120 70-90 mg/dl
[2017-01-03] MEDS: MoRPHine SULFATE IR 15 MG TAB (IMMEDIATE RELEASE) PO PRN (12:27)
[2017-01-03] MEDS ORDERED: LVQ250 PO (13:59)
[2017-01-03] MEDS ORDERED: LCTX PO (13:59)
[2017-01-03] MEDS ORDERED: MAGIC1 PO (13:59)
--- NOTE | 2017-01-03 14:01 | Discharge Instructions ---
Discharge Instructions Date of Service January 03, 2017. Admission Reason for Admission: Hypotension, Sbo Discharge Discharge Diagnosis / Problem: Partial SBO -resolved ,UTI,Crohn's disease Discharge Goals Goal(s): Prevent Disease Progression Activity Recommendations Activity Limitations: resume your previous activity . Instructions / Follow-Up Instructions / Follow-Up Please make an appointment with your PCP in 1 week Current Hospital Diet Patient's current hospital diet: Low Fat Diet Discharge Diet Recommended Diet: Low Fat Diet Pending Studies Studies pending at discharge: no Medical Emergencies . Who to Call and When: Medical Emergencies: If at any time you feel your situation is an emergency, please call 911 immediately. . Non-Emergent Contact Non-Emergency issues call your: Primary Care Provider . Past History Medical & Surgical History: (1) Crohn's colitis (2) Endometriosis (3) Fibromyalgia (4) Raynauds disease (5) Interstitial cystitis (6) Depression (7) Anxiety (8) Thrombocytopenia (9) Abdominal pain (10) SBO (small bowel obstruction) (11) Hypotension (12) H/O laparoscopy (13) H/O colonoscopy (14) S/P hysterectomy (15) H/O esophagogastroduodenoscopy . "Provider Documentation" section prepared by Etelvina Ma. . VTE Core Measure Inpt VTE Proph given/why not?: SCD's
[2017-01-03 14:32] VITALS: BP 100/65; PULSE 62; TEMP 36.6; O2SAT 94
--- NOTE | 2017-01-04 09:24 | Discharge Summary ---
Discharge Summary Date of Service January 04, 2017. Discharge Summary Admission Date: December 26, 2016 at 21:19 Discharge Date: January 03, 2017 Discharge Disposition: Home Principal Diagnosis: Partial SBO -resolved ,UTI,Crohn's disease Secondary Diagnoses/Problems: Please see H&P and Hospital progress note Consultations: GASTRO, SURGERY, HEMATOLOGY and NEUROLOGY Medication Reconciliation New Medications: Diphenhy/Alum/Mag/Sucralfa (Magic Swizzle - Diphenhy/Alum/Mag/Sucralfa) Susp 1 TSP PO Q4H, #200 ML 1 Refill 30ML DIPHENHYDRAMINE SLN 12.5/5ML 60ML MAALOX 4GM CARAFATE SWISH AND SPIT Lactobacillus Acidophilus (Lactinex) Tab 2 TAB PO BID, #30 TAB Levofloxacin (Levofloxacin) 250 Mg Tab 250 MG PO DAILY@11 for 5 Days, #5 TAB Continued Medications: Acetaminophen-Caffeine (Excedrin Tension Headache) 1 Tab Tab 1 TAB PO UD PRN for Headache TAKE PER PACKAGE DIRECTIONS Baclofen (Lioresal) 10 Mg Tab 10 MG PO TID PRN for Hiccups, TAB Celecoxib (Celebrex) 400 Mg Cap 400 MG PO BID, CAP Fluoxetine (Prozac) 40 Mg Cap 40 MG PO HS, CAP TAKE ONE 40 MG CAPSULE ALONG WITH ONE 20 MG CAPSULE TO EQUAL 60 MG DAILY DOSE Fluoxetine Hcl (Prozac) 20 Mg Cap 20 MG PO HS, CAP TAKE ONE 20 MG CAPSULE ALONG WITH ONE 40 MG CAPSULE TO EQUAL 60 MG DAILY DOSE Fluticasone Propionate (Nasal) (Flonase Allergy Relief Ch) 50 Mcg/Act Spr 2 SPRAYS ROSARIO DAILY Levalbuterol Tartrate (Levalbuterol Tartrate Hfa) 45 Mcg/Act Aer 2 PUFFS INH Q4 PRN for Wheezing Loratadine (Claritin) 10 Mg Tab 10 MG PO DAILY, TAB Lorazepam (Ativan) 0.5 Mg Tab 0.5 MG PO TID PRN for Anxiety, TAB Metoclopramide (Reglan) Unknown Strength Tab 1 TAB PO TID PRN for Hiccups Montelukast Sodium (Singulair) 10 Mg Tab 10 MG PO DAILY, TAB Morphine Sulfate (Morphine Sulfate Ir) 15 Mg Tab 30 MG PO Q8 PRN for Pain Pantoprazole (Protonix) 40 Mg Tab 40 MG PO BID, TAB Pentosan Polysulfate Sodium (Elmiron) 100 Mg Cap 300 MG PO BID, CAP Phenazopyridine HCl (Pyridium) 200 Mg Tab 200 MG PO TID PRN for Bladder pain, #6 TAB Prochlorperazine Maleate (Compazine) 10 Mg Tab 10 MG PO TID PRN for Nausea, TAB Topiramate (Topamax) 100 Mg Tab 100 MG PO BID, TAB Admission Information HPI (per Admitting provider): This is a 36 y/o female with PMH of colorectal CA and Crohn's disease s/p colectomy, and other problems listed below who presents to the ED for abdominal pain. Patient reports abdominal pain x 3 days around RLQ ileostomy site and suprapubic area. She reports increased stool output requiring emptying of ostomy bag 6-8 x per day while usually it fills 3-4x per day. No hematochezia or melena. She reports associated bloating, nausea, vomiting x 1 yesterday, chills, generalized weakness, fatigue. States she was eating normally at home. Today she developed migraine with visual aura which is similar to prior migraines. States the migraine is causing dizziness. She takes Excedrin migraine at home. States migraine cocktail helped on prior ER visit. She reports spontaneous bruising on her legs. Has occasional mild nose bleed (last episode 1 week ago) but no other bleeding. She finished Macrobid total of 10 day course for UTI with resolution of urinary symptoms. Denies fever, cough, wheezing, SOB, chest pain. Pt reports hx of hysterectomy, hx appendectomy, hx laparoscopy for endometriosis. No prior bowel obstruction. I did H/P, now pt is still have some lower abdominal pain, but no nausea, no vomiting, no fever, pt had total colectomy and ileostomy for colorectal cancer 1 year ago. now pt has been 3 days diarrhea, the ileostomy is still passing gas and stood. Past Medical/Surgical History Medical Problems: (1) Anxiety Status: Chronic (2) Colorectal cancer Status: Chronic (3) Crohn's colitis Status: Chronic (4) Depression Status: Chronic (5) Endometriosis Status: Chronic (6) Fibromyalgia Status: Chronic (7) History of iron deficiency anemia Status: Chronic (8) Ileostomy in place Status: Chronic (9) Interstitial cystitis Status: Chronic (10) Migraine Status: Chronic (11) Raynauds disease Status: Chronic (12) Thrombocytopenia Status: Chronic Surgical Problems: (1) H/O colonoscopy Status: Chronic (2) H/O esophagogastroduodenoscopy Status: Chronic (3) H/O laparoscopy Permanent Comment: biopsy for endometriosis Status: Chronic (4) H/O total colectomy Status: Resolved (5) S/P appendectomy Status: Chronic (6) S/P hysterectomy Status: Chronic Family History Diabetes mellitus FH: depression FH: heart disease FHx: cancer FHx: gallbladder disease Hypertension Social History Smoking Status: Never Smoker Alcohol Use: occasionally Drug Use: none Marital Status: Housing status: lives with significant other Occupational Status: disabled Allergies Coded Allergies: Clarithromycin (Verified Allergy, Severe, breathing problems, 12/11/16) Hydromorphone (Verified Allergy, Intermediate, RASH, 12/11/16) pt sasy she is allergic Ondansetron (Verified Allergy, Intermediate, itching, 12/11/16) Peanut (Verified Allergy, Intermediate, Rash and itchiness, 12/11/16) Hydroxyzine (Verified Allergy, Mild, itching, 12/11/16) Adhesives (Verified Allergy, Unknown, itching, swelling, 12/11/16) Albuterol (Verified Allergy, Unknown, rash, 12/11/16) BEE STING (Unverified Allergy, Unknown, anaphylaxis, 12/11/16) Latex (Verified Allergy, Unknown, itching, swelling, 12/11/16) Oxycodone (Verified Allergy, Unknown, itching, 12/11/16) Barium Sulfate (Verified Adverse Reaction, Unknown, diarrhea, 12/11/16) Lobster (Verified Adverse Reaction, Unknown, nausea, diarrhea, 12/11/16) Pregabalin (Verified Adverse Reaction, Unknown, delusions, 12/11/16) Uncoded Allergies: SPLENDA (Allergy, Unknown, Nausea/Vomiting, 09/26/16) Home Medications Scheduled Celecoxib (Celebrex), 400 MG PO BID Fluoxetine (Prozac), 40 MG PO HS Fluoxetine Hcl (Prozac), 20 MG PO HS Fluticasone Propionate (Nasal) (Flonase Allergy Relief ), 2 SPRAYS ROSARIO DAILY Loratadine (Claritin), 10 MG PO DAILY Montelukast Sodium (Singulair), 10 MG PO DAILY Pantoprazole (Protonix), 40 MG PO BID Pentosan Polysulfate Sodium (Elmiron), 300 MG PO BID Topiramate (Topamax), 100 MG PO BID Scheduled PRN Acetaminophen-Caffeine (Excedrin Tension Headache), 1 TAB PO UD PRN for Headache Baclofen (Lioresal), 10 MG PO TID PRN for Hiccups Levalbuterol Tartrate (Levalbuterol Tartrate Hfa), 2 PUFFS INH Q4 PRN for Wheezing Lorazepam (Ativan), 0.5 MG PO TID PRN for Anxiety Metoclopramide (Reglan), 1 TAB PO TID PRN for Hiccups Morphine Sulfate (Morphine Sulfate Ir), 30 MG PO Q8 PRN for Pain Phenazopyridine HCl (Pyridium), 200 MG PO TID PRN for Bladder pain Prochlorperazine Maleate (Compazine), 10 MG PO TID PRN for Nausea Review of Systems Ten systems reviewed and negative except as noted in HPI. Physical Ex - H&P Physical Exam Vital Signs Date Time Temp Pulse Resp B/P Pulse Ox O2 Delivery O2 Flow Rate FiO2 12/26/16 21:03 76 20 93/62 98 Room Air 12/26/16 19:42 75 20 82/50 99 Room Air 12/26/16 17:52 36.7 64 18 107/73 97 Room Air General Appearance: WD/WN, no apparent distress, + pertinent finding (pleasant alert 36 year old female) Head: normocephalic, atraumatic Eyes: normal inspection, PERRL, EOMI ENT: TMs normal, pharynx normal Neck: supple, trachea midline Respiratory/Chest: lungs clear, normal breath sounds, no respiratory distress, no accessory muscle use Cardiovascular: regular rate, rhythm, no murmur Abdomen/GI: soft (nondistended), + pertinent finding (hyperactive bowel sounds , tender to palpation in suprapubic and RLQ. no guarding. no rebound tenderness. ileostomy present in RLQ with stool and gas present. ) Extremities/Musculoskelatal: no calf tenderness, no pedal edema Neurologic/Psych: alert, normal mood/affect, oriented x 3, + pertinent finding (no focal deficit on gross examination) Skin: warm/dry, + pertinent finding (scattered ecchymosis on lower extremities) Diagnostics - H&P Diagnostics Laboratory Results Results Past 24 Hours Test 12/26/16 18:35 12/26/16 19:52 Range/Units White Blood Count 3.50 4.8-10.8 K/uL Red Blood Count 4.49 4.2-5.4 M/uL Hemoglobin 12.2 12.0-16.0 g/dL Hematocrit 37.3 37-47 % Mean Corpuscular Volume 83.1 80-100 fL Mean Corpuscular Hemoglobin 27.2 25-34 pg Mean Corpuscular Hemoglobin Concent 32.7 32-36 g/dl Platelet Count 67 130-400 K/uL Mean Platelet Volume 10.1 7.4-10.4 fL RDW Standard Deviation 44.6 36.4-46.3 fL RDW Coefficient of Variation 14.5 11.5-14.5 % Neutrophils % (Manual) 53.0 % Lymphocytes % (Manual) 27.8 % Variant Lymphocytes % (manual) 12.2 % Monocytes % (Manual) 3.5 % Eosinophils % (Manual) 3.5 % Neutrophils # (Manual) 1.86 1.4-6.5 K/uL Total Absolute Neutrophils 1.86 1.4-6.5 K/uL Lymphocytes # (Manual) 0.97 1.2-3.4 K/uL Absolute Variant Lymphocytes 0.43 K/uL Total Absolute Lymphocytes 1.40 1.2-3.4 K/uL Monocytes # (Manual) 0.12 0.11-0.59 K/uL Eosinophils # (Manual) 0.12 0-0.5 K/uL Platelet Estimate DECREASED Sodium Level 142 136-145 mmol/L Potassium Level 3.9 3.5-5.1 mmol/L Chloride Level 113 98-107 mmol/L Carbon Dioxide Level 20 21-32 mmol/L Anion Gap 9.0 3-11 mmol/L Blood Urea Nitrogen 8 7-18 mg/dl Creatinine 0.97 0.60-1.20 mg/dl Est Creatinine Clear Calc Drug Dose 88.5 ml/min Estimated GFR () 86.5 Estimated GFR (Non- 74.6 BUN/Creatinine Ratio 7.9 10-20 Random Glucose 100 70-99 mg/dl Lactic Acid Level 1.1 0.4-2.0 mmol/L Calcium Level 8.5 8.5-10.1 mg/dl Total Bilirubin 0.5 0.2-1 mg/dl Direct Bilirubin 0.2 0-0.2 mg/dl Aspartate Amino Transf (AST/SGOT) 14 15-37 U/L Alanine Aminotransferase (ALT/SGPT) 46 12-78 U/L Alkaline Phosphatase 109 45-117 U/L Total Protein 6.1 6.4-8.2 gm/dl Albumin 3.6 3.4-5.0 gm/dl Lipase 186 73-393 U/L Urine Color YELLOW Urine Appearance CLEAR CLEAR Urine pH 6.5 4.5-7.5 Urine Specific Drifting 1.015 1.000-1.030 Urine Protein NEG NEG Urine Glucose (UA) NEG NEG Urine Ketones NEG NEG Urine Occult Blood NEG NEG Urine Nitrite NEG NEG Urine Bilirubin NEG NEG Urine Urobilinogen NEG NEG Urine Leukocyte Esterase NEG NEG Urine WBC (Auto) 1-5 0-5 /hpf Urine RBC (Auto) 0-4 0-4 /hpf Urine Hyaline Casts (Auto) 0 0-5 /lpf Urine Epithelial Cells (Auto) 0-5 0-5 /lpf Urine Bacteria (Auto) NEG NEG Urine Test NEG NEG Diagnostic Radiology ABDOMEN AND PELVIS CT WITH IV CONTRAST CT DOSE: 252.00 mGy.cm HISTORY: Pain abd pain TECHNIQUE: Multiaxial CT images of the abdomen and pelvis were performed following the use of intravenous contrast. COMPARISON STUDY: 04/02/2016 FINDINGS: Lung bases are clear. Liver is uniform throughout. Slightly progressive splenomegaly splenomegaly compared to the prior exam. Normal appearing kidneys. Findings consistent with a complete colectomy. Several mildly distended loops of small bowel within the soft tissue pelvic region. Possibility of adhesions is considered. An obstructing lesion is not appreciated. There is a right anterior abdominal ostomy showing no evidence for obstructive change.. IMPRESSION: 1. Slightly progressive splenomegaly compared to the prior exam. 2. Findings of a prior colectomy and right lower quadrant ileostomy. 3. Several slightly distended loops of small bowel within the soft tissue pelvic region. Possibility of adhesions must be a consideration, with no well-defined evidence for an obstructing mass. Impression - H&P Impression Assessment and Plan POSSIBLE SMALL BOWEL OBSTRUCTION Pt with history of multiple abdominal surgeries- colectomy for colorectal cancer and Crohn's, hysterectomy, appendectomy, laparoscopy for endometriosis CT a/p -several slightly distended loops of small bowel within the soft tissue pelvic region. Possibility of adhesions must be a consideration, with no well- defined evidence for an obstructing mass. NPO, IVF's, PRN morphine with holding parameter for hypotension Consult general surgery EPISODIC HYPOTENSION Improved with IVF's Likely due to hypovolemia from diarrhea; IV morphine given in ER may have contributed Afebrile, no leukocytosis, no tachycardia, lactic acid WNL Continue IVF's Monitor in telemetry overnight MIGRAINE Reports TOBAR similar to chronic migraines Try combination of IV Toradol, IV Benadryl, IV compazine which worked for her in the past CHRONIC THROMBOCYTOPENIA Plt count 67; was 84 on last outpatient labs No active bleeding Follows with [facility] hematology Monitor CBC ASTHMA Not in acute exacerbation Continue home inhaler and Singulair CHRONIC PAIN Takes PO morphine at home prescribed by PCP Dr. Farrell- verified on [place] drug monitoring data base PRN IV morphine for now DEPRESSION/ ANXIETY Continue home meds FULL CODE DVT PROPHYLAXIS SCD's due to thrombocytopenia Patient seen in collaboration with Dr. Mcgrath. Please see his addendum. Agree with above H and P. Briefly 36Y F with PMH of Crohns disease and colon cancer s/p colectomy presents with increasing ostomy output and abdominal pain for last few days. Also complains of some leakage around ostomy .Has some nausea. Currently also her migraines and chronic back pain acting up. p/e Ge not inn distress Cvs s 1 and s2 heard no murmurs Rs cta b/l no added sounds Abd soft bowels sounds present colostomy site n erythema or drainage seen a/p SBO? on ct scan has abdominal pain and increased ostomy output npo, iv fluids Surgery evaluation monitor in hospital Hypotension relative from dehydration, morphine? on fluids will monitor VTE Prophylaxis VTE Risk Assessment Done? Y/N: Yes Risk Level: Low Physical Exam (per Admitting): General Appearance: WD/WN, no apparent distress, + pertinent finding ( pleasant alert 36 year old female) Head: normocephalic, atraumatic Eyes: normal inspection, PERRL, EOMI ENT: TMs normal, pharynx normal Neck: supple, no JVD, trachea midline Respiratory/Chest: chest non-tender, lungs clear, normal breath sounds, no respiratory distress, no accessory muscle use Cardiovascular: regular rate, rhythm, no murmur Abdomen/GI: normal bowel sounds (some stool in ileiostomy bag), soft ( nondistended), no pulsatile mass, + tenderness, + pertinent finding ( hyperactive bowel sounds, tender to palpation in suprapubic and RLQ. no guarding. no rebound tenderness. ileostomy present in RLQ with stool and gas present. ) Extremities/Musculoskelatal: no calf tenderness, no pedal edema, normal range of motion Neurologic/Psych: no motor/sensory deficits, alert, normal mood/affect, oriented x 3, + pertinent finding (no focal deficit on gross examination) Skin: warm/dry, no rash, + pertinent finding (scattered ecchymosis on lower extremities) Hospital Course Partial Small bowel obstruction. Could have a flare up of Crohn with more diarrhea CT:Several slightly distended loops of small bowel within the soft tissue pelvic region. Possibility of adhesions must be a consideration, with no well-defined evidence for an obstructing mass. Presented with Abdominal pain associated with increase ileostomy output Surgery consulted, reviewed CT and No SBO Appreciate GI input-no medication for Crohns as because of Pancytopenia Dr. Jaimes will discuss case with Dr. Kan at [facility] for further input since pt follows with Dr. Kan regularly Tolerated low fat diet Continued Home dose of Pain medication Tolerating diet and pain is controlled No more symptoms of Intestinal Obstruction UTI Gm negative bacilli in Urine culture Ceftriaxone started Await sensitivity-pansensitive Will give Levaquin for 7 days in total HYPOTENSION Likely due to hypovolemia from diarrhea Afebrile, no leukocytosis, no tachycardia, lactic acid normal stable ELECTROLYTES IMBALANCE Secondary to diarrhea Supplement and recheck-better LOW FOLATE Continue folic acid supplement MIGRAINE Reports TOBAR similar to chronic migraines Try combination of IV Toradol, IV Benadryl, IV compazine which worked for her in the past Neuro on board recommended magnesium and riboflavin Stable TREMORS Neuro on board recommend to start any treatment as an outpatient She will follow up with neuro CHRONIC THROMBOCYTOPENIA PANCYTOPENIA Plt count 52, WBC 2.22 RBC 3.65 Possible related to recent abx used as per hematology Hematology Dr. Arredondo on board Monitor-Counts are improving W Hematology will see her as an OP ASTHMA Continue home inhaler and Singulair Stable CHRONIC PAIN Takes PO morphine at home prescribed by PCP Dr. Farrell- verified on [place] drug monitoring data base with no issues Resume Po home dose morphine Will not change pain med on discharge-patient is OK with that DEPRESSION/ ANXIETY Continue home meds DVT PROPHYLAXIS SCD's due to thrombocytopenia CODE STATUS FULL CODE Consultants: GASTRO SURGERY HEMATOLOGY NEUROLOGY Discharge today She will make necessary appointments as discussed Total time spent on discharge = 35 minutes This includes examination of the patient, discharge planning, medication reconciliation, and communication with other providers. Discharge Instructions Date of Service January 03, 2017. Admission Reason for Admission: Hypotension, Sbo Discharge Discharge Diagnosis / Problem: Partial SBO -resolved ,UTI,Crohn's disease Discharge Goals Goal(s): Prevent Disease Progression Activity Recommendations Activity Limitations: resume your previous activity . Instructions / Follow-Up Instructions / Follow-Up Please make an appointment with your PCP in 1 week Current Hospital Diet Patient's current hospital diet: Low Fat Diet Discharge Diet Recommended Diet: Low Fat Diet Pending Studies Studies pending at discharge: no Medical Emergencies . Who to Call and When: Medical Emergencies: If at any time you feel your situation is an emergency, please call 911 immediately. . Non-Emergent Contact Non-Emergency issues call your: Primary Care Provider . Past History Medical & Surgical History: (1) Crohn's colitis (2) Endometriosis (3) Fibromyalgia (4) Raynauds disease (5) Interstitial cystitis (6) Depression (7) Anxiety (8) Thrombocytopenia (9) Abdominal pain (10) SBO (small bowel obstruction) (11) Hypotension (12) H/O laparoscopy (13) H/O colonoscopy (14) S/P hysterectomy (15) H/O esophagogastroduodenoscopy . "Provider Documentation" section prepared by Etelvina Ma. . VTE Core Measure Inpt VTE Proph given/why not?: SCD's <Electronically signed by Etelvina Ma M.D.> Additional Copies To Bao Farrell M.D.
[2017-01-04] MEDS ORDERED: LEVOFLOXACIN 250 MG TAB PO SCH (11:00)
[2017-04-01] MEDS ORDERED: LDDP5 EX (19:50)
[2017-04-16] MEDS ORDERED: ACETTAB15 PO (18:52)
[2017-04-19] MEDS ORDERED: DFL100 PO (17:19)
[2017-04-19] MEDS ORDERED: RCPAV1 IV (17:19)
[2017-06-04] MEDS ORDERED: PENT100C6 PO (01:35)
[2017-06-04] MEDS ORDERED: MONT1TAB3 PO (01:36)
[2017-06-04] MEDS ORDERED: TOPI100T20 PO (01:38)
[2017-06-04] MEDS ORDERED: BUDE1CAP6 PO (13:05)
[2017-06-04] MEDS ORDERED: LORA-741 PO (14:00)
[2017-06-04] MEDS ORDERED: FLUO40CA8 PO (16:58)
[2017-06-04] MEDS ORDERED: CLR10 PO (16:58)
[2017-06-04] MEDS ORDERED: FLUT1SPR12 NAE (18:48)
[2017-06-04] MEDS ORDERED: BACL1TAB PO (18:52)
[2017-06-04] MEDS ORDERED: PANT1TAB48 PO (20:26)
[2017-06-04] MEDS ORDERED: PROC1TAB5 PO (20:26)
[2017-06-04] MEDS ORDERED: FLUO20CA34 PO (20:26)
[2017-06-04] MEDS ORDERED: MORP15TA PO (20:26)
[2017-06-04] MEDS ORDERED: LEVA45AE INH (20:30)
== END 2017-01-03 15:15 | disposition home or self-care (01) | DRG 385 ==
LOC: ENRESERVTM → ENRESERVDT → C.EDB 17:51 → UNDOADMIN 21:19 → C.2T 21:19 → EDBEDREQ 12-29 10:29 → C.2T 12-29 10:50 → C.4E 12-29 10:50
PROVIDERS: ADMIT Internal Medicine; ATTEND Internal Medicine
DX: K50.90 Crohn's disease, unspecified, without complications (principal); D61.811 Other drug-induced pancytopenia; N39.0 Urinary tract infection, site not specified; Z93.2 Ileostomy status; G89.29 Other chronic pain; F41.9 Anxiety disorder, unspecified; F32.9 Major depressive disorder, single episode, unspecified; I73.00 Raynaud's syndrome without gangrene; R25.1 Tremor, unspecified; D69.6 Thrombocytopenia, unspecified; I95.9 Hypotension, unspecified; M79.7 Fibromyalgia; J45.909 Unspecified asthma, uncomplicated; G43.109 Migraine with aura, not intractable, without status migrainosus; Z79.899 Other long term (current) drug therapy; Z90.710 Acquired absence of both cervix and uterus; Z90.49 Acquired absence of other specified parts of digestive tract; Z88.8 Allergy status to other drugs, medicaments and biological substances; Z91.013 Allergy to seafood; Z85.038 Personal history of other malignant neoplasm of large intestine; Z88.5 Allergy status to narcotic agent; Z91.010 Allergy to peanuts; Z91.030 Bee allergy status; Z91.040 Latex allergy status; Z91.048 Other nonmedicinal substance allergy status; Z83.3 Family history of diabetes mellitus; Z81.8 Family history of other mental and behavioral disorders; Z82.49 Family history of ischemic heart disease and other diseases of the circulatory system; Z83.79 Family history of other diseases of the digestive system; R10.84 Generalized abdominal pain; N80.9 Endometriosis, unspecified; Z88.3 Allergy status to other anti-infective agents; Z91.018 Allergy to other foods; Z91.09 Other allergy status, other than to drugs and biological substances; Z80.9 Family history of malignant neoplasm, unspecified

== ENCOUNTER 2017-03-07 20:55 | Emergency (ER) | payer BC, OTHER ==
[~2017-03-07] VITALS: Ht 162.6 cm; Wt 55.1 kg
[~2017-03-07 20:55] MED LIST changes: +LCTX PO; +LVQ250 PO; +MAGIC1 PO; +METO-157 PO; -NITR-5 PO
[2017-03-07 21:25] VITALS: TEMP 37.1; Ht 162.6 cm; Wt 55.1 kg
[2017-03-07 22:04] LABS: URINE APPEARANCE CLEAR (CLEAR); URINE BILIRUBIN NEG (NEG); URINE COLOR DK YELLOW; URINE NITRITE POS (NEG); URINE SPECIFIC GRAVITY 1.013 (1.000-1.030); UROBILINOGEN NEG (NEG); ZZUR CULT IF INDIC CLEAN CATCH YES
[2017-03-07 22:05] LABS: MANUAL MICROSCOPIC REQUIRED? NO; REVIEW REQ? NO
[2017-03-07 22:19] LABS: HEMATOCRIT 35.7 % (37-47); MEAN CELL VOLUME 85.4 fL (80-100); MEAN CORPUSCULAR HEMOGLOBIN 27.3 pg (25-34); MEAN CORPUSCULAR HGB CONC 31.9 g/dl (32-36); RED BLOOD COUNT 4.18 M/uL (4.2-5.4); WHITE BLOOD COUNT 2.85 K/uL (4.8-10.8)
[2017-03-07 22:39] LABS: MEAN PLATELET VOLUME 9.3 fL (7.4-10.4); PLATELET COUNT 74 K/uL (130-400)
[2017-03-07 22:40] LABS: COMPLETE YES; EOS % 0.4 %; IG% 0.4 %; LYMPH % 22.5 %; LYMPH ABS # 0.64 K/uL (1.2-3.4); MONO % 6.7 %
[2017-03-07 22:50] LABS: BUN/CREATININE RATIO 21.7 (10-20); CALCIUM 8.6 mg/dl (8.5-10.1); POTASSIUM 3.9 mmol/L (3.5-5.1)
[2017-03-07 22:53] LABS: ALB/GLOB RATIO 1.2 (0.9-2)
[2017-03-07] MEDS ORDERED: LEVO-366 PO (23:28)
[2017-03-07] MEDS ORDERED: LEVOFLOXACIN 250 MG TAB PO ONE (23:30)
[2017-03-07 23:43] VITALS: BP 104/61; PULSE 70; O2SAT 96
--- NOTE | 2017-03-08 07:36 | EMERGENCY ROOM VISIT NOTE ---
History First contact with patient: 22:12 Chief Complaint: URINARY SYMPTOMS Stated Complaint: UTI, DEHYDRATION, LOW PLATELETS(BRUSING, BLEEDING) Nursing Triage Summary: Patient states "I have had urinary symptoms and have been on 5 different antibiotics over the last few weeks. I think that my platelets are low from all of the antibiotics. I have also been experiencing bladder pain, headaches, back pain, vaginal bleeding and cramping. I had a hysterectomy and I don't know why I have the vaginal bleeding. Maybe that's from my platelets being low." History of Present Illness The patient is a 36 year old female who presents to the Emergency Room with complaints of UTI symptoms worsening over the past week. The patient states that she has had multiple UTIs over the past few months. She states that she has had multiple doses of Macrobid throughout this interval. She also took a 3 day course of Cipro. The patient does complain of some suprapubic abdominal pain but no flank pain. She has not had a fever. The patient is concerned that she may have low platelets as she has been bruising easier than normal. The patient has been evaluated by hematology and oncology at this facility, and typically her platelets run in the low 50s. She rates her overall discomfort a 10/10. She took oral morphine at home as well as Pyridium without improvement of her symptoms. Review of Systems More than 10 systems were reviewed and otherwise negative with the exception of history of present illness. Past Medical/Surgical History Medical Problems: (1) Anxiety (2) Colorectal cancer (3) Crohn's colitis (4) Depression (5) Endometriosis (6) Fibromyalgia (7) History of iron deficiency anemia (8) Hypotension (9) Ileostomy in place (10) Interstitial cystitis (11) Migraine (12) Raynauds disease (13) SBO (small bowel obstruction) (14) Thrombocytopenia Surgical Problems: (1) H/O colonoscopy (2) H/O esophagogastroduodenoscopy (3) H/O laparoscopy (4) H/O total colectomy (5) S/P appendectomy (6) S/P hysterectomy Family History Diabetes mellitus FH: depression FH: heart disease FHx: cancer FHx: gallbladder disease Hypertension Social History Smoking Status: Never Smoker Alcohol Use: occasionally Drug Use: none Marital Status: Occupation Status: disabled Current/Historical Medications Scheduled Celecoxib (Celebrex), 400 MG PO BID Diphenhy/Alum/Mag/Sucralfa (Magic Swizzle - Diphenhy/Alum/Mag/Sucralfa), 1 TSP PO Q4H Fluoxetine (Prozac), 40 MG PO HS Fluoxetine Hcl (Prozac), 20 MG PO HS Fluticasone Propionate (Nasal) (Flonase Allergy Relief Ch), 2 SPRAYS ROSARIO DAILY Levofloxacin (Levaquin), 500 MG PO DAILY Loratadine (Claritin), 10 MG PO DAILY Montelukast Sodium (Singulair), 10 MG PO DAILY Pantoprazole (Protonix), 40 MG PO BID Pentosan Polysulfate Sodium (Elmiron), 300 MG PO BID Topiramate (Topamax), 100 MG PO BID Scheduled PRN Acetaminophen-Caffeine (Excedrin Tension Headache), 1 TAB PO UD PRN for Headache Baclofen (Lioresal), 10 MG PO TID PRN for Hiccups Levalbuterol Tartrate (Levalbuterol Tartrate Hfa), 2 PUFFS INH Q4 PRN for Wheezing Lorazepam (Ativan), 0.5 MG PO TID PRN for Anxiety Metoclopramide (Reglan), 1 TAB PO TID PRN for Hiccups Morphine Sulfate (Morphine Sulfate Ir), 30 MG PO Q8 PRN for Pain Phenazopyridine HCl (Pyridium), 200 MG PO TID PRN for Bladder pain Prochlorperazine Maleate (Compazine), 10 MG PO TID PRN for Nausea Physical Exam Vital Signs Date Time Temp Pulse Resp B/P (MAP) Pulse Ox O2 Delivery O2 Flow Rate FiO2 03/07/17 23:43 70 18 104/61 96 03/07/17 22:45 68 20 111/66 98 Room Air 03/07/17 21:25 37.1 66 20 116/73 97 Room Air Pain Rating (0-10): 6.0 Physical Exam VITALS: Vitals are noted on the nurse's note and reviewed by myself. Vital signs stable. GENERAL: Well-developed, well-nourished, white female, who is in no acute distress and resting comfortably. Patient is cooperative with the examination. HEAD: Normocephalic atraumatic. HEART: Regular rate and rhythm without murmurs gallops or rubs. LUNGS: Clear to auscultation bilaterally without wheezes, rales or rhonchi. No retractions or accessory muscle use. ABDOMEN: Positive normal bowel sounds x 4. Soft with mild suprapubic tenderness on palpation. No rebound or guarding. No CVA tenderness. MUSCULOSKELETAL: No muscle atrophy, erythema, or edema noted. Full range of motion without joint tenderness in all extremities. Medical Decision & Procedures Laboratory Results 03/07/17 22:05 Red Blood Count 4.18, Mean Corpuscular Volume 85.4, Mean Corpuscular Hemoglobin 27.3, Mean Corpuscular Hemoglobin Concent 31.9, Mean Platelet Volume 9.3, Neutrophils (%) (Auto) 70.0, Lymphocytes (%) (Auto) 22.5, Monocytes (%) (Auto) 6.7, Eosinophils (%) (Auto) 0.4, Basophils (%) (Auto) 0.0, Neutrophils # (Auto) 2.00, Lymphocytes # (Auto) 0.64, Monocytes # (Auto) 0.19, Eosinophils # (Auto) 0.01, Basophils # (Auto) 0.00 03/07/17 22:05 Test 03/07/17 21:30 03/07/17 22:05 Urine Color DK YELLOW Urine Appearance CLEAR (CLEAR) Urine pH 5.0 (4.5-7.5) Urine Specific [place] 1.013 (1.000-1.030) Urine Protein NEG (NEG) Urine Glucose (UA) NEG (NEG) Urine Ketones NEG (NEG) Urine Occult Blood NEG (NEG) Urine Nitrite POS (NEG) Urine Bilirubin NEG (NEG) Urine Urobilinogen NEG (NEG) Urine Leukocyte Esterase SMALL (NEG) Urine WBC (Auto) 5-10 /hpf (0-5) Urine RBC (Auto) 0-4 /hpf (0-4) Urine Hyaline Casts (Auto) 0 /lpf (0-5) Urine Epithelial Cells (Auto) 5-10 /lpf (0-5) Urine Bacteria (Auto) 4+ (NEG) Urine Test NEG (NEG) White Blood Count 2.85 K/uL (4.8-10.8) Red Blood Count 4.18 M/uL (4.2-5.4) Hemoglobin 11.4 g/dL (12.0-16.0) Hematocrit 35.7 % (37-47) Mean Corpuscular Volume 85.4 fL (80-100) Mean Corpuscular Hemoglobin 27.3 pg (25-34) Mean Corpuscular Hemoglobin Concent 31.9 g/dl (32-36) Platelet Count 74 K/uL (130-400) Mean Platelet Volume 9.3 fL (7.4-10.4) Neutrophils (%) (Auto) 70.0 % Lymphocytes (%) (Auto) 22.5 % Monocytes (%) (Auto) 6.7 % Eosinophils (%) (Auto) 0.4 % Basophils (%) (Auto) 0.0 % Neutrophils # (Auto) 2.00 K/uL (1.4-6.5) Lymphocytes # (Auto) 0.64 K/uL (1.2-3.4) Monocytes # (Auto) 0.19 K/uL (0.11-0.59) Eosinophils # (Auto) 0.01 K/uL (0-0.5) Basophils # (Auto) 0.00 K/uL (0-0.2) RDW Standard Deviation 50.6 fL (36.4-46.3) RDW Coefficient of Variation 16.2 % (11.5-14.5) Immature Granulocyte % (Auto) 0.4 % Immature Granulocyte # (Auto) 0.01 K/uL (0.00-0.02) Anion Gap 6.0 mmol/L (3-11) Est Creatinine Clear Calc Drug Dose 66.6 ml/min Estimated GFR () 83.4 Estimated GFR (Non- 71.9 BUN/Creatinine Ratio 21.7 (10-20) Calcium Level 8.6 mg/dl (8.5-10.1) Total Bilirubin 0.4 mg/dl (0.2-1) Aspartate Amino Transf (AST/SGOT) 25 U/L (15-37) Alanine Aminotransferase (ALT/SGPT) 53 U/L (12-78) Alkaline Phosphatase 71 U/L (45-117) Total Protein 6.3 gm/dl (6.4-8.2) Albumin 3.4 gm/dl (3.4-5.0) Globulin 2.9 gm/dl (2.5-4.0) Albumin/Globulin Ratio 1.2 (0.9-2) Medications Administered Medications (Trade) Dose Ordered Sig/Tamar Route Start Time Stop Time Status Last Admin Dose Admin Levofloxacin (Levaquin Tab) 500 mg NOW ONCE PO 03/07/17 23:30 03/07/17 23:31 DC 03/07/17 23:41 500 MG ED Course Physical exam and history were performed. Nursing notes, EMR, and Medication List were personally reviewed. Patient appears to have UTI symptoms for the past several days. She does not appear toxic on examination. She is concerned about her platelet level due to easy bruising. IV access was established and labs were obtained. Urine was collected. The patient's blood work is as above and was reviewed. She does not have a significantly elevated white blood cell count or gross anemia. Her platelet count is low, however this is improved from her normal levels. Her urine appears to be infected and the patient will be started on Levaquin as this seems to have coverage based on her previous cultures. The patient requested pain medication multiple times throughout her emergency department stay. I explained that I would not be providing her narcotic pain medication, and offered Tylenol, which she refused. The patient has been admitted for pain control in the past, and on previous visits I have had personal concern for drug-seeking behavior. 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 The patient was otherwise invited back to the ER with any new, worsening, or concerning symptoms. She rated her discomfort a 6/10 at the time of departure. The chart was completed utilizing [employer] Speech Voice Recognition Software. Grammatical errors, random word insertions, pronoun errors, and incomplete sentences are an occasional consequence of this system due to software limitations, ambient noise, and hardware issues. Any formal questions or concerns about the content, text, or information contained within the body of this dictation should be directly addressed to the provider for clarification. . Medical Decision Differential diagnosis: Etiologies such as UTI, pyelonephritis, chronic abdominal pain, thrombocytopenia , renal colic, appendicitis, diverticulitis, mesenteric ischemia, aortic pathology, infections, inflammatory bowel disease, PUD, biliary pathology, as well as others were entertained. Impression Primary Impression: Urinary tract infection Departure Information Dispostion Home / Self-Care Condition GOOD Prescriptions Levofloxacin (Levaquin) 500 Mg Tab 500 MG PO DAILY for 6 Days, #6 TAB Prov: Danny Franklin PA-C 03/07/17 Referrals Bao Farrell M.D. (PCP) Forms HOME CARE DOCUMENTATION FORM, IMPORTANT VISIT INFORMATION Patient Instructions My [facility] Additional Instructions You were seen and evaluated today on an emergency basis only. This is not a substitute for, or an effort to provide, complete comprehensive medical care. It is not possible to recognize and treat all injuries or illnesses in a single emergency department visit. For this reason it is recommended that you followup with your primary care physician or urologist for ongoing care and evaluation. Take Levaquin 500 milligrams daily for the next 6 days. Continue your at-home medications. You are welcome to return to the emergency department anytime with new, worsening, or concerning symptoms.
[2017-04-01] MEDS ORDERED: LDDP5 EX (19:50)
[2017-04-16] MEDS ORDERED: PENT100C6 PO (01:35)
[2017-04-16] MEDS ORDERED: MONT1TAB3 PO (01:36)
[2017-04-16] MEDS ORDERED: TOPI100T20 PO (01:38)
[2017-04-16] MEDS ORDERED: BUDE3CAP14 PO (13:05)
[2017-04-16] MEDS ORDERED: LORA-741 PO (14:00)
[2017-04-16] MEDS ORDERED: CLR10 PO (16:58)
[2017-04-16] MEDS ORDERED: FLUO40CA8 PO (16:58)
[2017-04-16] MEDS ORDERED: FLUT1SPR12 NAE (18:48)
[2017-04-16] MEDS ORDERED: ACETTAB14 PO (18:52)
[2017-04-16] MEDS ORDERED: BACL1TAB PO (18:52)
[2017-04-16] MEDS ORDERED: MORP15TA PO (20:26)
[2017-04-16] MEDS ORDERED: FLUO20CA34 PO (20:26)
[2017-04-16] MEDS ORDERED: PANT1TAB48 PO (20:26)
[2017-04-16] MEDS ORDERED: PROC1TAB5 PO (20:26)
[2017-04-16] MEDS ORDERED: LEVA45AE INH (20:30)
[2017-04-19] MEDS ORDERED: RCPAV1 IV (17:19)
[2017-04-19] MEDS ORDERED: DFL100 PO (17:19)
== END 2017-03-07 23:43 | disposition home or self-care (01) ==
LOC: C.EDB 20:57 → C.EDC 23:43
DX: N39.0 Urinary tract infection, site not specified (principal); F41.9 Anxiety disorder, unspecified; K52.9 Noninfective gastroenteritis and colitis, unspecified; F32.9 Major depressive disorder, single episode, unspecified; N80.9 Endometriosis, unspecified; M79.7 Fibromyalgia; D50.9 Iron deficiency anemia, unspecified; I10 Essential (primary) hypertension; I73.00 Raynaud's syndrome without gangrene; D69.6 Thrombocytopenia, unspecified; Z83.3 Family history of diabetes mellitus; Z82.49 Family history of ischemic heart disease and other diseases of the circulatory system

== ENCOUNTER → 2017-03-19 | Outpatient (CLI) | payer BC, OTHER ==
[~2017-03-19] MED LIST changes: +ACETTAB14 PO; +BACL1TAB PO; +BUDE3CAP14 PO; +CELE400C PO; +CLR10 PO; +DFL100 PO; +FLUO20CA34 PO; +FLUO40CA8 PO; +FLUT1SPR12 NAE; -LCTX PO; +LDDP5 EX; +LEVA45AE INH; +LORA-741 PO; -LVQ250 PO; +MONT1TAB3 PO; +MORP15TA PO; +PANT1TAB48 PO; +PENT100C6 PO; +PHEN-876 PO; +PROC1TAB5 PO; +RCPAV1 IV; +TOPI100T20 PO
--- NOTE | 2017-03-19 14:39 | DIAGNOSTIC IMAGING REPORT ---
(CHEST) THORAX WITHOUT CT DOSE: 185.89 mGy.cm HISTORY: Pulmonary nodule. Follow-up. TECHNIQUE: Multiaxial CT images of the chest were performed without contrast. A dose lowering technique was utilized adhering to the principles of ALARA. COMPARISON: Chest CTA 01/17/2016. FINDINGS: The central airways are patent. No pleural effusions. No pneumothorax. Stable calcified granuloma within the left lower lobe. Stable 3 mm nodule within the left upper lobe on image 71. This is likely benign. Stable 4 mm nodule within the right middle lobe on image 166. No new pulmonary nodules. No suspicious lytic or blastic osseous lesions. No mediastinal or hilar lymphadenopathy. Normal caliber thoracic aorta. No hepatic or splenic masses. IMPRESSION: Stable subcentimeter pulmonary nodules with the largest in the right middle lobe measuring 4 mm. Please refer to the chart below for recommended follow-up. Please refer to below summary of Fleischner criteria recommendations for follow-up of incidental CT nodules (Lady Fregoso, Guidelines for management of small pulmonary nodules detected on CT scans: A statement from the Fleischner Society, Radiology 237: [phone].) SOLID NODULES Solitary nodule size: <6 mm * Low risk patients: no follow-up needed * high risk patients: optional CT at 12 months Solitary nodule size: 6-8 mm * Low risk patients: follow-up at 6-12 months, then consider further follow-up at 18-24 months * high risk patients: initial follow-up CT at 6-12 months and then at 18-24 months if no change Solitary nodule size: >8 mm * either low or high risk patients - consider follow-up CT at 3 months, and/or CT-PET, and/or biopsy Multiple nodules size: <6 mm * Low risk patients: no routine follow-up * high risk patients: optional CT at 12 months Multiple nodules size: 6-8 mm * Low risk patients: follow-up at 3-6 months, then consider further follow-up at 18-24 months * high risk patients: follow-up at 3-6 months, then at 18-24 months if no change Multiple nodules size: >8 mm * Low risk patients: follow-up at 3-6 months, then consider further follow-up at 18-24 months * high risk patients: follow-up at 3-6 months, then at 18-24 months if no change Note: newly detected indeterminate nodule in persons 35 years of age or older. * Low risk patients: minimal or absent history of smoking and/or other known risk factors * high risk patients: history of smoking or of other known risk factors (e.g. first degree relative with lung cancer, or exposure to asbestos, radon, uranium) * if a nodule up to 8 mm is partly solid or is ground glass further follow-up is required after 24 months to exclude possible slow growing adenocarcinoma (INDIA) SUBSOLID NODULES Solitary pure ground-glass nodule * nodule size <6 mm - no CT follow-up required * nodule size >=6 mm - follow-up CT at 6-12 months, then every 2 years until 5 years Solitary part-solid nodule * nodule size <6 mm - no CT follow-up required * nodule size >=6 mm - follow-up CT at 3-6 months. If unchanged, and solid component remains <6 mm, then annual follow-up for 5 years Multiple subsolid nodules * nodule size <6 mm - follow-up CT at 3-6 months, consider further follow-up at 2 and 4 years if stable * nodule size >=6 mm - follow-up CT at 3-6 months, subsequent management based on the most suspicious nodule(s) Electronically signed by: Pancho Maria M.D. 03/19/2017 2:38 PM Dictated Date/Time: 03/19/2017 2:32 PM
== END | disposition home or self-care (01) ==
LOC: C.CTS 14:09
PROVIDERS: ATTEND Family Medicine
DX: R91.1 Solitary pulmonary nodule (principal)

== ENCOUNTER 2017-03-28 09:26 | Inpatient (IN) | payer BC, OTHER ==
[~2017-03-28] VITALS: Ht 172.7 cm; Wt 49.8 kg
[~2017-03-28 09:26] MED LIST changes: -ACETTAB14 PO; -BACL1TAB PO; -BUDE3CAP14 PO; -CELE400C PO; -CLR10 PO; -DFL100 PO; -FLUO20CA34 PO; -FLUO40CA8 PO; -FLUT1SPR12 NAE; -LDDP5 EX; -LEVA45AE INH; -LORA-741 PO; -MONT1TAB3 PO; -MORP15TA PO; -PANT1TAB48 PO; -PENT100C6 PO; -PHEN-876 PO; -PROC1TAB5 PO; -RCPAV1 IV; -TOPI100T20 PO
[2017-03-28] MEDS ORDERED: MoRPHine SULFATE 4 MG/ML 1 ML CARP\\VIAL IV STA (10:08)
[2017-03-28] MEDS ORDERED: SODIUM CHLORIDE 0.9% 1000ML 1,000 ML IV STA (10:08)
--- NOTE | 2017-03-28 11:13 | DIAGNOSTIC IMAGING REPORT ---
ABD/PELVIS WITHOUT FOR STONE HISTORY: 36 years-old Female acute suprapubic pain COMPARISON: CT abdomen and pelvis 12/26/2016 TECHNIQUE: Multiple axial CT images of the abdomen and pelvis were obtained without IV contrast A dose lowering technique was used consistent with the principals of LUZ MARIA. FINDINGS: Lung bases are clear without pneumothorax. There is no pneumoperitoneum. Imaged inferior cardiac chambers are unremarkable. The gallbladder, liver, pancreas and adrenal glands are unremarkable. Spleen measures the upper limits of normal at 12.5 cm. The bilateral kidneys, ureters and urinary bladder are unremarkable. Prior hysterectomy. Abdominal aorta is normal in course and caliber. No bulky retroperitoneal adenopathy. Postsurgical changes are seen consistent with prior colectomy and right lower quadrant ileostomy. There is moderate distention of the gastric lumen and duodenum with focal area of transitioning collapsed small bowel seen within the right mid abdomen on image 208 and 209 of the thin section axial series. There is associated swirling of the mesentery within this distribution. Note is made that the duodenum does not appear to cross midline, however was noted to cross midline on comparison study dated 12/26/2016 excluding congenital malrotation of the bowel. Surgical clips are seen within the mid abdomen. No associated pneumatosis. The bones are moderately demineralized. There is convex right curvature of the lumbar spine. IMPRESSION: 1. Moderate distention of the stomach and duodenum with focal area of transitioned collapsed bowel of the proximal jejunum noted with associated swirling of the mesentery within the right midabdomen suggesting internal hernia causing associated high-grade obstruction. No pneumoperitoneum or pneumatosis. 2. Prior colectomy with right lower quadrant ileostomy. The above report was generated using voice recognition software. It may contain grammatical, syntax or spelling errors. Electronically signed by: Lucian Martinez M.D. 03/28/2017 11:11 AM Dictated Date/Time: 03/28/2017 11:01 AM
[2017-03-28 11:18] LABS: BUN/CREATININE RATIO 14.5 (10-20); CALCIUM 9.4 mg/dl (8.5-10.1); CREATININE 1.3 mg/dl (0.60-1.20); POTASSIUM 3.8 mmol/L (3.5-5.1)
[2017-03-28 11:32] LABS: MANUAL MICROSCOPIC REQUIRED? YES; REVIEW REQ? NO; URINE APPEARANCE CLEAR (CLEAR); URINE COLOR ORANGE
[2017-03-28 11:33] LABS: SULFASALICYLIC ACID NEG (NEG)
[2017-03-28 11:35] LABS: URINE RBC 0-4 /hpf (0-4)
[2017-03-28 11:36] LABS: URINE BACTERIA 3+ (NEG); URINE WBC >30 /hpf (0-5)
[2017-03-28 11:37] LABS: MEAN CELL VOLUME 81.7 fL (80-100); MEAN PLATELET VOLUME 9.8 fL (7.4-10.4); PLATELET COUNT 94 K/uL (130-400); RED BLOOD COUNT 6.12 M/uL (4.2-5.4); WHITE BLOOD COUNT 5.23 K/uL (4.8-10.8)
[2017-03-28 11:40] LABS: BASO % 0.2 %; BASO ABS # 0.01 K/uL (0-0.2); COMPLETE YES; EOS % 2.5 %; IG% 0.2 %; LYMPH % 36.1 %; LYMPH ABS # 1.89 K/uL (1.2-3.4); MONO % 7.1 %; NEUT % 53.9 %; PLT ESTIMATE DECREASED; POIKILOCYTOSIS PRESENT; TOXIC GRANULATION 1+; VACUOLIZATION 1+
[2017-03-28 12:32] VITALS: O2SAT 97; Ht 172.7 cm; Wt 49.8 kg
[2017-03-28] MEDS ORDERED: MAGIC1 PO (13:05)
[2017-03-28] MEDS ORDERED: D5W AND 1/2NSS 1,000 ML IV STA (13:14)
[2017-03-28] MEDS ORDERED: CEFTRIAXONE SOD INJ 1 GM in DEXTROSE 5% ADD-VANTAGE 50ML 50 ML IV STA (13:16)
[2017-03-28] MEDS ORDERED: CEFTRIAXONE SOD INJ 1 GM ADDVIAL ONE (13:29)
--- NOTE | 2017-03-28 13:30 | CONSULTATION REPORT ---
DATE OF CONSULTATION: 03/28/2017 DATE OF CONSULTATION: 03/26/2017 REASON FOR CONSULT: Small-bowel obstruction and possible internal hernia. HISTORY OF PRESENT ILLNESS: The patient is a 36-year-old female with history of total colectomy for Crohn's approximately 18 months ago who presented to the Emergency Department this afternoon complaining of increased abdominal pain which began last night. She has had lower abdominal pain of varying degrees over the last few weeks. She has been dealing with a chronic UTI. She has been following with Dr. Gerardo, was supposed to be seeing infectious disease in the near future. When her pain continued, she did not know what else to do so she came to the Emergency Department. She was admitted about 2 months ago for abdominal pain, was seen by surgery for possible bowel obstruction. She has done well since then other than her urinary problems. She has gained 4 pounds in the last 2 months. She has had good ileostomy output, somewhat increased more than normal lately. She has not had any vomiting. She has felt a little nauseous last night. PAST MEDICAL HISTORY: Anxiety, Crohn's, depression, endometriosis, fibromyalgia, iron deficiency anemia, interstitial cystitis, migraines, Raynaud's, thrombocytopenia. Although colon cancer is documented elsewhere, my understanding is that there was some dysplasia of the colon. It may be helpful to obtain pathology report from [facility]. PAST SURGICAL HISTORY: Appendectomy, hysterectomy, laparoscopy, laparoscopy, colonoscopy and EGD. CURRENT MEDICATIONS: Include Excedrin p.r.n., baclofen 10 mg t.i.d. as needed, Celebrex 400 mg b.i.d., Prozac 60 mg daily, Flonase nasal spray 2 sprays daily, levalbuterol 2 puffs q. 4 hours as needed, Claritin 10 mg daily, Ativan 0.5 mg t.i.d., Reglan 1 tablet t.i.d. as needed, Singulair 10 mg daily, morphine IR 30 mg p.o. q. 8 hours, Protonix 40 mg p.o. b.i.d., Elmiron 300 mg b.i.d., Pyridium 200 mg t.i.d., Compazine 10 mg as needed and Topamax 100 mg b.i.d. ALLERGIES: INCLUDE ADHESIVES, ALBUTEROL, BARIUM, CLARITHROMYCIN, HYDROMORPHONE, HYDROXYZINE, TORADOL, LATEX, ZOFRAN, LOBSTER AND LYRICA. REVIEW OF SYSTEMS: GENERAL: No fevers or chills, 4 pound weight gain recently. ABDOMEN: As per HPI. 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 GENITOURINARY: Chronic UTI with some antibiotic resistance. She follows with Dr. Gerardo. PHYSICAL EXAMINATION: OBJECTIVE: She appears in no acute distress in the Emergency Department. VITAL SIGNS: Temperature 36.6, pulse 76, respirations 18, blood pressure 111/75, pulse ox 97% on room air. HEAD, EYES, EARS, NOSE, AND THROAT: Unremarkable. HEART: Regular rate and rhythm. LUNGS: Clear. ABDOMEN: Soft, nondistended, minimal suprapubic tenderness right lower quadrant ileostomy with pouch being more than half full of output. SKIN: Warm and dry. LABORATORY DATA: White count is 5,000, hemoglobin 16.5, hematocrit 50, platelets 94,000. Sodium 137, potassium 3.8, BUN 19, creatinine 1.3, glucose 99. IMAGING: CT shows a distended duodenum and stomach and collapsed proximal jejunal and associated mesenteric swirling raising the question of internal hernia causing high-grade obstruction. IMPRESSION: Crohn's disease; bowel obstruction. PLAN: The patient was seen in the ED with Dr. Velasquez. CT was reviewed with radiology. There is a change in duodenal positioning on CT in comparison to one performed in December; however, her abdomen is benign. She has not had any vomiting, her heart rate and white count are normal. There is nothing to warrant urgent exploration. She is being admitted by the hospitalist service. We will continue to follow her progress. Would not place an NG tube unless she has further nausea or vomiting. JEANNIE
--- NOTE | 2017-03-28 13:50 | History and Physical ---
History & Physical Date & Time of Service: Mar 28, 2017 at 12:59 Chief Complaint: Severe Abd. Pain, Kidney Infection, Dehydration Primary Care Physician: Xuan Golden PA-C History of Present Illness Source: patient, clinic records, hospital records This is a 36 year old female with PMH of Crohns disease with dysplasia s/p total proctocolectomy with end ileostomy ([facility] in 09/2015), hysterectomy , and multiple laparoscopies, who presents to the ED with abdominal and back pain x 2 days. Patient follows with Dr. Jaimes for GI. She was recently admitted at [facility] from 12/26-01/03 2017 for possible partial SBO. She was seen by surgery and GI. There was no surgical intervention. Patient reports being started on Entocort by Dr. Jaimes following that admission. Today she presents with pain across her lower abdomen and lower back x 2 days. She reports increased brown liquid output from her ileostomy. She is occasionally lightheaded and feeling crampy in the legs and dehydrated. States she is drinking fluids but they run through her. She reports dysuria and intermittent hematuria (resolved). She reports multiple recent UTI's with some antibiotic resistance over the past few months. Last abx finished 1.5 weeks ago- unsure which antibiotic. She states she is supposed to see infectious disease but has no appointment yet. Has had chills associated with UTI's. Has vaginal discharge and feels she may have a yeast infection. She reports spontaneous bruising on her legs. Follows with Dr. Arredondo for thrombocytopenia. She denies any fever, vomiting, belching, blood in stool. Past Medical/Surgical History Medical Problems: (1) Anxiety Status: Chronic (2) Colon dysplasia Status: Chronic (3) Crohn's colitis Status: Chronic (4) Depression Status: Chronic (5) Endometriosis Status: Chronic (6) Fibromyalgia Status: Chronic (7) History of iron deficiency anemia Status: Chronic (8) Ileostomy in place Status: Chronic (9) Interstitial cystitis Status: Chronic (10) Migraine Status: Chronic (11) Raynauds disease Status: Chronic (12) Thrombocytopenia Status: Chronic Surgical Problems: (1) H/O colonoscopy Status: Chronic (2) H/O esophagogastroduodenoscopy Status: Chronic (3) H/O laparoscopy Permanent Comment: biopsy for endometriosis Status: Chronic (4) H/O total colectomy Status: Resolved (5) S/P appendectomy Status: Chronic (6) S/P hysterectomy Status: Chronic Family History Diabetes mellitus FH: depression FH: heart disease FHx: cancer FHx: gallbladder disease Hypertension Social History Smoking Status: Never Smoker Marital Status: Housing status: lives with significant other Occupational Status: disabled Allergies Coded Allergies: Clarithromycin (Verified Allergy, Severe, breathing problems, 03/07/17) Hydromorphone (Verified Allergy, Intermediate, RASH, 03/07/17) pt sasy she is allergic Ondansetron (Verified Allergy, Intermediate, itching, 03/07/17) Peanut (Verified Allergy, Intermediate, Rash and itchiness, 03/07/17) Hydroxyzine (Verified Allergy, Mild, itching, 03/07/17) Adhesives (Verified Allergy, Unknown, itching, swelling, 03/07/17) Albuterol (Verified Allergy, Unknown, rash, 03/07/17) BEE STING (Unverified Allergy, Unknown, anaphylaxis, 03/07/17) Ketorolac Tromethamine (Unverified Allergy, Unknown, unknown, 03/07/17) Latex (Verified Allergy, Unknown, itching, swelling, 03/07/17) Oxycodone (Verified Allergy, Unknown, itching, 03/07/17) Barium Sulfate (Verified Adverse Reaction, Unknown, diarrhea, 03/07/17) Lobster (Verified Adverse Reaction, Unknown, nausea, diarrhea, 03/07/17) Pregabalin (Verified Adverse Reaction, Unknown, delusions, 03/07/17) Uncoded Allergies: SPLENDA (Allergy, Unknown, Nausea/Vomiting, 09/26/16) Home Medications Scheduled Budesonide (Entocort Ec), 9 MG PO DAILY Celecoxib (Celebrex), 400 MG PO BID Fluoxetine (Prozac), 40 MG PO HS Fluoxetine Hcl (Prozac), 20 MG PO HS Fluticasone Propionate (Nasal) (Flonase Allergy Relief Ch), 2 SPRAYS ROSARIO DAILY Loratadine (Claritin), 10 MG PO DAILY Montelukast Sodium (Singulair), 10 MG PO DAILY Pantoprazole (Protonix), 40 MG PO BID Pentosan Polysulfate Sodium (Elmiron), 300 MG PO BID Topiramate (Topamax), 100 MG PO BID Scheduled PRN Acetaminophen-Caffeine (Excedrin Tension Headache), 1 TAB PO UD PRN for Headache Baclofen (Lioresal), 10 MG PO TID PRN for Hiccups Diphenhy/Alum/Mag/Sucralfa (Magic Swizzle - Diphenhy/Alum/Mag/Sucralfa), 1 TSP PO Q4H PRN for UD Levalbuterol Tartrate (Levalbuterol Tartrate Hfa), 2 PUFFS INH Q4 PRN for Wheezing Lorazepam (Ativan), 0.5 MG PO TID PRN for Anxiety Metoclopramide (Reglan), 1 TAB PO TID PRN for Hiccups Morphine Sulfate (Morphine Sulfate Ir), 30 MG PO Q8 PRN for Pain Phenazopyridine HCl (Pyridium), 200 MG PO TID PRN for Bladder pain Prochlorperazine Maleate (Compazine), 10 MG PO TID PRN for Nausea Review of Systems Ten systems reviewed and negative except as noted in HPI> Physical Exam Vital Signs Date Time Temp Pulse Resp B/P (MAP) Pulse Ox O2 Delivery O2 Flow Rate FiO2 03/28/17 12:40 74 18 98/70 98 Room Air 03/28/17 12:32 97 Room Air 03/28/17 10:46 76 18 111/75 97 Room Air 03/28/17 09:29 36.6 97 20 103/74 91 Room Air General Appearance: WD/WN, no apparent distress, + pertinent finding ( at bedside) Head: normocephalic, atraumatic Eyes: normal inspection, sclerae normal ENT: normal ENT inspection, hearing grossly normal Neck: supple Respiratory/Chest: lungs clear, normal breath sounds, no respiratory distress, no accessory muscle use Cardiovascular: regular rate, rhythm, no murmur Abdomen/GI: normal bowel sounds, soft, + pertinent finding (periumbilical tenderness. + ileostomy with liquid output. ) Back: no CVA tenderness, + pertinent finding (+ lumbar paraspinal tenderness bilaterally ) Extremities/Musculoskelatal: no calf tenderness, no pedal edema Neurologic/Psych: alert, normal mood/affect, oriented x 3 Skin: normal color, warm/dry, + pertinent finding (scattered ecchymosis on bilat LE) Diagnostics Laboratory Results Results Past 24 Hours Test 03/28/17 10:30 03/28/17 11:05 Range/Units White Blood Count 5.23 4.8-10.8 K/uL Red Blood Count 6.12 4.2-5.4 M/uL Hemoglobin 16.5 12.0-16.0 g/dL Hematocrit 50.0 37-47 % Mean Corpuscular Volume 81.7 80-100 fL Mean Corpuscular Hemoglobin 27.0 25-34 pg Mean Corpuscular Hemoglobin Concent 33.0 32-36 g/dl Platelet Count 94 130-400 K/uL Mean Platelet Volume 9.8 7.4-10.4 fL Neutrophils (%) (Auto) 53.9 % Lymphocytes (%) (Auto) 36.1 % Monocytes (%) (Auto) 7.1 % Eosinophils (%) (Auto) 2.5 % Basophils (%) (Auto) 0.2 % Neutrophils # (Auto) 2.82 1.4-6.5 K/uL Lymphocytes # (Auto) 1.89 1.2-3.4 K/uL Monocytes # (Auto) 0.37 0.11-0.59 K/uL Eosinophils # (Auto) 0.13 0-0.5 K/uL Basophils # (Auto) 0.01 0-0.2 K/uL RDW Standard Deviation 45.1 36.4-46.3 fL RDW Coefficient of Variation 15.3 11.5-14.5 % Immature Granulocyte % (Auto) 0.2 % Immature Granulocyte # (Auto) 0.01 0.00-0.02 K/uL Toxic Granulation 1+ Toxic Vacuolation 1+ Platelet Estimate DECREASED Poikilocytosis PRESENT Sodium Level 137 136-145 mmol/L Potassium Level 3.8 3.5-5.1 mmol/L Chloride Level 107 98-107 mmol/L Carbon Dioxide Level 22 21-32 mmol/L Anion Gap 8.0 3-11 mmol/L Blood Urea Nitrogen 19 7-18 mg/dl Creatinine 1.30 0.60-1.20 mg/dl Est Creatinine Clear Calc Drug Dose 46.6 ml/min Estimated GFR () 60.7 Estimated GFR (Non- 52.4 BUN/Creatinine Ratio 14.5 10-20 Random Glucose 99 70-99 mg/dl Calcium Level 9.4 8.5-10.1 mg/dl Total Bilirubin 0.9 0.2-1 mg/dl Direct Bilirubin 0.2 0-0.2 mg/dl Aspartate Amino Transf (AST/SGOT) 44 15-37 U/L Alanine Aminotransferase (ALT/SGPT) 137 12-78 U/L Alkaline Phosphatase 140 45-117 U/L Total Protein 8.4 6.4-8.2 gm/dl Albumin 4.7 3.4-5.0 gm/dl Lipase 316 73-393 U/L Urine Color ORANGE Urine Appearance CLEAR CLEAR Urine pH 4.5-7.5 Urine Specific [place] 1.010 1.000-1.030 Urine Protein NEG NEG Urine Glucose (UA) NEG Urine Ketones NEG Urine Occult Blood NEG Urine Nitrite NEG Urine Bilirubin NEG Urine Urobilinogen NEG Urine Leukocyte Esterase NEG Urine RBC 0-4 0-4 /hpf Urine WBC >30 0-5 /hpf Urine Epithelial Cells 0-5 0-5 /lpf Urine Bacteria 3+ NEG Microbiology Results 03/28/17 Urine Culture, Received Pending Diagnostic Radiology ABD/PELVIS WITHOUT FOR STONE HISTORY: 36 years-old Female acute suprapubic pain COMPARISON: CT abdomen and pelvis 12/26/2016 TECHNIQUE: Multiple axial CT images of the abdomen and pelvis were obtained without IV contrast A dose lowering technique was used consistent with the principals of DARYLRA. FINDINGS: Lung bases are clear without pneumothorax. There is no pneumoperitoneum. Imaged inferior cardiac chambers are unremarkable. The gallbladder, liver, pancreas and adrenal glands are unremarkable. Spleen measures the upper limits of normal at 12.5 cm. The bilateral kidneys, ureters and urinary bladder are unremarkable. Prior hysterectomy. Abdominal aorta is normal in course and caliber. No bulky retroperitoneal adenopathy. Postsurgical changes are seen consistent with prior colectomy and right lower quadrant ileostomy. There is moderate distention of the gastric lumen and duodenum with focal area of transitioning collapsed small bowel seen within the right mid abdomen on image 208 and 209 of the thin section axial series. There is associated swirling of the mesentery within this distribution. Note is made that the duodenum does not appear to cross midline, however was noted to cross midline on comparison study dated 12/26/2016 excluding congenital malrotation of the bowel. Surgical clips are seen within the mid abdomen. No associated pneumatosis. The bones are moderately demineralized. There is convex right curvature of the lumbar spine. IMPRESSION: 1. Moderate distention of the stomach and duodenum with focal area of transitioned collapsed bowel of the proximal jejunum noted with associated swirling of the mesentery within the right midabdomen suggesting internal hernia causing associated high-grade obstruction. No pneumoperitoneum or pneumatosis. 2. Prior colectomy with right lower quadrant ileostomy. Impression Assessment and Plan POSSIBLE HIGH GRADE SBO Hx Crohn's disease with dysplasia s/p total proctocolectomy with end ileostomy ( [facility] in 09/2015), appendectomy, hysterectomy, and multiple laparoscopies Presents with abdominal pain, increased liquid output from ileostomy CT abdomen- Moderate distention of the stomach and duodenum with focal area of transitioned collapsed bowel of the proximal jejunum noted with associated swirling of the mesentery within the right midabdomen suggesting internal hernia causing associated high-grade obstruction. No pneumoperitoneum or pneumatosis. Prior colectomy with right lower quadrant ileostomy. Clear liquid diet On review of GI notes from prior hospitalization, and attending's conversation with Dr. Jaimes, there is concern about inappropriate use of narcotics for abdominal pain and possible drug seeking behavior, therefore will avoid narcotics for now; use of acetaminophen also limited due to elevated LFT's IV fluids General surgery consulted; Dr. Velasquez aware; appreciate input- no plan for surgical intervention at this time, no NG tube indicated unless she develops vomiting CROHN'S DISEASE Takes Entocort 9 mg daily As per prior GI note, patient underwent endoscopic workup by Dr. Lee in February of 2016 with no findings of active Crohn's disease on ileoscopy. Consult GI- patient discussed with Dr. Theodore Jaimes plans to discuss with Dr. Kan at [facility] UTI Hx frequent UTI's (prior cultures show E. coli and Klebsiella with some resistance, however + sensitivity to ceftriaxone) Has seen Dr. Gerardo ([facility]) UA appears infected; urine culture pending Will treat with empiric ceftriaxone Consult infectious disease Will also test for chlamydia, gonorrhea, trichomonas given vaginal discharge THROMBOCYTOPENIA Platelets are 94; no sign of bleeding Follows with Dr. Arredondo for hematology CHRONIC PAIN On chronic morphine sulfate IR 30 mg TID PRN Verified with [place] drug monitoring [place] Hold narcotics for now as noted above Monitor for signs of withdrawal ASTHMA Not in acute exacerbation Continue home inhaler DEPRESSION/ ANXIETY Continue home medications FULL CODE DISPOSITION Admission med/ surg Follows with Dr. Farrell for primary care Patient seen in collaboration with Dr. Varma. Please see his addendum. Attending Physician Addendum I have seen and examined this patient with Nya Pruitt PA-C and agree with her findings and would like to add the following Exam: General: patient speaking without acute distress and breathing on room air , points to pain of lower back and lower quadrant of abdomen. HEENT: extraocuular movements intact, pupils respond to light appropriately, no jaundice in sclera, no oral exudates. Heart: Regular rate and rhythm without ventricular heave or thrills. No JVD. Lungs: Clear to auscultation bilaterally, no wheezing. Back: no acute CVA tenderness, tenderness on palpation across lower back without focal tenderness. Extremities: no edema however bruises on both legs. Neuro: awake and alert, no focal neurological deficits This is a 36 year old female with PMH multiple abdominal surgeries and laproscopies for complications from Crohns disease with dysplasia and was s/p total proctocolectomy with end ileostomy ([facility] in 09/2015), and history of hysterectomy, recurrent UTIs with some resistance to ampicillin and fluoroquinolone who presents to ED for back and abdominal pain with CT abdomen findings concerning for bowel obstruction. Specifically the impressions from the report were : "1. Moderate distention of the stomach and duodenum with focal area of transitioned collapsed bowel of the proximal jejunum noted with associated swirling of the mesentery within the right midabdomen suggesting internal hernia causing associated high-grade obstruction. No pneumoperitoneum or pneumatosis. 2. Prior colectomy with right lower quadrant ileostomy." The ED consulted general surgery and there does not appear to be need for urgent surgical interventions at this time. I have spoken with Dr. Velasquez who is the surgery attending physician consulted by the ED in this case and he has recommended not to place an NG tube at this time for bowel decompression as patient is not actively vomiting. Medicine hospitalist team will admit the patient for continued care and have requested surgery service to follow the case with us for further recommendations as needed. Will provide IV hydration antiemetics and clear liquid diet unless patient absolutely needs to be NPO for bowel rest. In addition, I have placed a GI consult and spoken with Dr. Salvador Delgado a GI doctor who was involved in her evaluation in the past whether she may be having flare of Crohn's disease or some ileus secondary to the patient's use of narcotic medications in the past and are awaiting full GI recommendation from him and his team. In the meanwhile, it may be reasonable to minimize narcotic medications for abdominal pain given concern bowel loop digitations may be secondary to ileus from narcotics use. Review of labs show some transaminitis and acetaminophen use for pain control should be titrated carefully. Will continue budesonide for Crohn's disease pending further GI recommendations on disease management. An Infectious disease consult has also been placed as patient has been treated with various antibiotics for recurrent UTIs. Previous cultures showing resistance to ampicillin and fluoroquinolones.Will start on ceftriaxone for UTI and appreciate ID recommendations on antibiotic recommendations. Also ordered Gonorrhea and Chlamydia co-testing. Will provide SCDs for DVT prophylaxis and monitor thrombocytopenia. Level of Care Med/Surg Advanced Directives Existing Living Will: No Existing Power of Carrier Driver: No Resuscitation Status FULL RESUSCITATION VTE Prophylaxis Given or contraindicated: SCD's
[2017-03-28] MEDS ORDERED: MoRPHine SULFATE IR 15 MG TAB (IMMEDIATE RELEASE) PO PRN (14:00)
[2017-03-28] MEDS ORDERED: PHENAZOPYRIDINE HCL 200 MG TAB PO PRN (14:00)
[2017-03-28 14:09] LABS: MAGNESIUM 2.2 mg/dl (1.8-2.4); PHOSPHORUS 5.2 mg/dl (2.5-4.9)
[2017-03-28 17:04] VITALS: BP 102/67; PULSE 78; TEMP 36.6; O2SAT 97
--- NOTE | 2017-03-28 17:22 | EMERGENCY ROOM VISIT NOTE ---
History Report prepared by Carlo: Kira Bain Under the Supervision of: Dr. Jimmy Celaya M.D. First contact with patient: 09:49 Chief Complaint: ABDOMINAL PAIN Stated Complaint: SEVERE ABD. PAIN, KIDNEY INFECTION, DEHYDRATION Nursing Triage Summary: Pt c/o recurrent UTIs "I have been on 8 abx and I can't get rid of it. Dr. Gerardo referred me to infectious disease but they haven't called me" Pt c/o back and abd pain History of Present Illness The patient is a 36 year old female who presents to the Emergency Room with complaints of chronic diffuse lower abdominal pain that became worse last night. The patient has a history of frequent UTIs. Over the past few months she has been treated with several courses of Macrobid, Cipro, and Levaquin. Most recently she was treated with a 7-day course of Macrobid and she finished that just over a week ago. She has not had any relief of her symptoms. The patient states that she has had dysuria for the past few months. She reports abdominal pain and lower back pain that she describes as sharp and rates as a 10/10 in severity. She has been taking Azo and Uristat OTC without any relief. She has also been using a heating pad. She has a prescription for morphine which she states is not helping either. She is also experiencing nausea and vomiting. The patient has an ileostomy and reports that her stool has been more watery lately and she has been having leg cramps. She thinks that she is dehydrated. She denies any fevers. The patient follows with Dr. Gerardo of urology and states that Dr. Gerardo put in a referral to infectious disease regarding the patient' s case. The patient states that infectious disease was supposed to call her last week, but she has not heard from them yet. She states that Dr. Gerardo thinks that she has chronic UTIs due to her poor immune system. Source of History: patient Onset: last night Position: abdomen (diffuse lower) Symptom Intensity: 10/10 Quality: sharp Timing: worsening Modifying Factors (Relieving): heat Associated Symptoms: + nausea, + vomiting, + urinary symptoms (dysuria), No fevers Review of Systems See HPI for pertinent positives & negatives. A total of 10 systems reviewed and were otherwise negative. Past Medical & Surgical Medical Problems: (1) Anxiety (2) Colon dysplasia (3) Crohn's colitis (4) Depression (5) Endometriosis (6) Fibromyalgia (7) History of iron deficiency anemia (8) Hypotension (9) Ileostomy in place (10) Interstitial cystitis (11) Migraine (12) Raynauds disease (13) SBO (small bowel obstruction) (14) Thrombocytopenia Surgical Problems: (1) H/O colonoscopy (2) H/O esophagogastroduodenoscopy (3) H/O laparoscopy (4) H/O total colectomy (5) S/P appendectomy (6) S/P hysterectomy Family History Diabetes mellitus FH: depression FH: heart disease FHx: cancer FHx: gallbladder disease Hypertension Social History Smoking Status: Never Smoker Alcohol Use: occasionally Drug Use: none Marital Status: Occupation Status: disabled Current/Historical Medications Scheduled Budesonide (Entocort Ec), 9 MG PO DAILY Celecoxib (Celebrex), 400 MG PO BID Fluoxetine (Prozac), 40 MG PO HS Fluoxetine Hcl (Prozac), 20 MG PO HS Fluticasone Propionate (Nasal) (Flonase Allergy Relief Ch), 2 SPRAYS ROSARIO DAILY Loratadine (Claritin), 10 MG PO DAILY Montelukast Sodium (Singulair), 10 MG PO DAILY Pantoprazole (Protonix), 40 MG PO BID Pentosan Polysulfate Sodium (Elmiron), 300 MG PO BID Topiramate (Topamax), 100 MG PO BID Scheduled PRN Acetaminophen-Caffeine (Excedrin Tension Headache), 1 TAB PO UD PRN for Headache Baclofen (Lioresal), 10 MG PO TID PRN for Hiccups Diphenhy/Alum/Mag/Sucralfa (Magic Swizzle - Diphenhy/Alum/Mag/Sucralfa), 1 TSP PO Q4H PRN for UD Levalbuterol Tartrate (Levalbuterol Tartrate Hfa), 2 PUFFS INH Q4 PRN for Wheezing Lorazepam (Ativan), 0.5 MG PO TID PRN for Anxiety Metoclopramide (Reglan), 1 TAB PO TID PRN for Hiccups Morphine Sulfate (Morphine Sulfate Ir), 30 MG PO Q8 PRN for Pain Phenazopyridine HCl (Pyridium), 200 MG PO TID PRN for Bladder pain Prochlorperazine Maleate (Compazine), 10 MG PO TID PRN for Nausea Allergies Coded Allergies: Clarithromycin (Verified Allergy, Severe, breathing problems, 03/07/17) Hydromorphone (Verified Allergy, Intermediate, RASH, 03/07/17) pt sasy she is allergic Ondansetron (Verified Allergy, Intermediate, itching, 03/07/17) Peanut (Verified Allergy, Intermediate, Rash and itchiness, 03/07/17) Hydroxyzine (Verified Allergy, Mild, itching, 03/07/17) Adhesives (Verified Allergy, Unknown, itching, swelling, 03/07/17) Albuterol (Verified Allergy, Unknown, rash, 03/07/17) BEE STING (Unverified Allergy, Unknown, anaphylaxis, 03/07/17) Ketorolac Tromethamine (Unverified Allergy, Unknown, unknown, 03/07/17) Latex (Verified Allergy, Unknown, itching, swelling, 03/07/17) Oxycodone (Verified Allergy, Unknown, itching, 03/07/17) Barium Sulfate (Verified Adverse Reaction, Unknown, diarrhea, 03/07/17) Lobster (Verified Adverse Reaction, Unknown, nausea, diarrhea, 03/07/17) Pregabalin (Verified Adverse Reaction, Unknown, delusions, 03/07/17) Uncoded Allergies: SPLENDA (Allergy, Unknown, Nausea/Vomiting, 09/26/16) Physical Exam Vital Signs Date Time Temp Pulse Resp B/P (MAP) Pulse Ox O2 Delivery O2 Flow Rate FiO2 03/28/17 12:40 74 18 98/70 98 Room Air 03/28/17 12:32 97 Room Air 03/28/17 10:46 76 18 111/75 97 Room Air 03/28/17 09:29 36.6 97 20 103/74 91 Room Air Physical Exam Constitutional: Vital signs reviewed. Eyes: Pupils are equal round reactive to light. Conjunctiva are noninjected. ENT: Pharynx is clear without erythema or exudate. Mucous membranes are dry. Neck supple without meningeal signs. Respiratory: Clear to auscultation bilaterally. Breath sounds are equal bilaterally. Cardiovascular: Regular rate and rhythm. No rubs or gallops. GI: Soft, nondistended with suprapubic tenderness. No guarding. Bowel sounds are present. Ileostomy in the right lower abdomen with liquid stool. Musculoskeletal: No peripheral edema. No CVA tenderness. Integumentary: No cyanosis. Neurological: The patient is awake and alert. No focal deficits. Psychiatric: Normal affect. Medical Decision & Procedures ER Provider Diagnostic Interpretation: Radiology results as stated below per my review and the radiologist's interpretation: ABD/PELVIS WITHOUT FOR STONE HISTORY: 36 years-old Female acute suprapubic pain COMPARISON: CT abdomen and pelvis 12/26/2016 TECHNIQUE: Multiple axial CT images of the abdomen and pelvis were obtained without IV contrast A dose lowering technique was used consistent with the principals of LUZ MARIA. FINDINGS: Lung bases are clear without pneumothorax. There is no pneumoperitoneum. Imaged inferior cardiac chambers are unremarkable. The gallbladder, liver, pancreas and adrenal glands are unremarkable. Spleen measures the upper limits of normal at 12.5 cm. The bilateral kidneys, ureters and urinary bladder are unremarkable. Prior hysterectomy. Abdominal aorta is normal in course and caliber. No bulky retroperitoneal adenopathy. Postsurgical changes are seen consistent with prior colectomy and right lower quadrant ileostomy. There is moderate distention of the gastric lumen and duodenum with focal area of transitioning collapsed small bowel seen within the right mid abdomen on image 208 and 209 of the thin section axial series. There is associated swirling of the mesentery within this distribution. Note is made that the duodenum does not appear to cross midline, however was noted to cross midline on comparison study dated 12/26/2016 excluding congenital malrotation of the bowel. Surgical clips are seen within the mid abdomen. No associated pneumatosis. The bones are moderately demineralized. There is convex right curvature of the lumbar spine. IMPRESSION: 1. Moderate distention of the stomach and duodenum with focal area of transitioned collapsed bowel of the proximal jejunum noted with associated swirling of the mesentery within the right midabdomen suggesting internal hernia causing associated high-grade obstruction. No pneumoperitoneum or pneumatosis. 2. Prior colectomy with right lower quadrant ileostomy. The above report was generated using voice recognition software. It may contain grammatical, syntax or spelling errors. Electronically signed by: Lucian Martinez M.D. 03/28/2017 11:11 AM Dictated Date/Time: 03/28/2017 11:01 AM Laboratory Results 03/28/17 10:30 Red Blood Count 6.12, Mean Corpuscular Volume 81.7, Mean Corpuscular Hemoglobin 27.0, Mean Corpuscular Hemoglobin Concent 33.0, Mean Platelet Volume 9.8, Neutrophils (%) (Auto) 53.9, Lymphocytes (%) (Auto) 36.1, Monocytes (%) (Auto) 7.1, Eosinophils (%) (Auto) 2.5, Basophils (%) (Auto) 0.2, Neutrophils # (Auto) 2.82, Lymphocytes # (Auto) 1.89, Monocytes # (Auto) 0.37, Eosinophils # (Auto) 0.13, Basophils # (Auto) 0.01 03/28/17 10:30 Test 03/28/17 10:30 03/28/17 11:05 White Blood Count 5.23 K/uL (4.8-10.8) Red Blood Count 6.12 M/uL (4.2-5.4) Hemoglobin 16.5 g/dL (12.0-16.0) Hematocrit 50.0 % (37-47) Mean Corpuscular Volume 81.7 fL (80-100) Mean Corpuscular Hemoglobin 27.0 pg (25-34) Mean Corpuscular Hemoglobin Concent 33.0 g/dl (32-36) Platelet Count 94 K/uL (130-400) Mean Platelet Volume 9.8 fL (7.4-10.4) Neutrophils (%) (Auto) 53.9 % Lymphocytes (%) (Auto) 36.1 % Monocytes (%) (Auto) 7.1 % Eosinophils (%) (Auto) 2.5 % Basophils (%) (Auto) 0.2 % Neutrophils # (Auto) 2.82 K/uL (1.4-6.5) Lymphocytes # (Auto) 1.89 K/uL (1.2-3.4) Monocytes # (Auto) 0.37 K/uL (0.11-0.59) Eosinophils # (Auto) 0.13 K/uL (0-0.5) Basophils # (Auto) 0.01 K/uL (0-0.2) RDW Standard Deviation 45.1 fL (36.4-46.3) RDW Coefficient of Variation 15.3 % (11.5-14.5) Immature Granulocyte % (Auto) 0.2 % Immature Granulocyte # (Auto) 0.01 K/uL (0.00-0.02) Toxic Granulation 1+ Toxic Vacuolation 1+ Platelet Estimate DECREASED Poikilocytosis PRESENT Anion Gap 8.0 mmol/L (3-11) Est Creatinine Clear Calc Drug Dose 46.6 ml/min Estimated GFR () 60.7 Estimated GFR (Non- 52.4 BUN/Creatinine Ratio 14.5 (10-20) Calcium Level 9.4 mg/dl (8.5-10.1) Phosphorus Level 5.2 mg/dl (2.5-4.9) Magnesium Level 2.2 mg/dl (1.8-2.4) Total Bilirubin 0.9 mg/dl (0.2-1) Direct Bilirubin 0.2 mg/dl (0-0.2) Aspartate Amino Transf (AST/SGOT) 44 U/L (15-37) Alanine Aminotransferase (ALT/SGPT) 137 U/L (12-78) Alkaline Phosphatase 140 U/L (45-117) Total Protein 8.4 gm/dl (6.4-8.2) Albumin 4.7 gm/dl (3.4-5.0) Lipase 316 U/L (73-393) Urine Color ORANGE Urine Appearance CLEAR (CLEAR) Urine pH (4.5-7.5) Urine Specific [place] 1.010 (1.000-1.030) Urine Protein NEG (NEG) Urine Glucose (UA) (NEG) Urine Ketones (NEG) Urine Occult Blood (NEG) Urine Nitrite (NEG) Urine Bilirubin (NEG) Urine Urobilinogen (NEG) Urine Leukocyte Esterase (NEG) Urine RBC 0-4 /hpf (0-4) Urine WBC >30 /hpf (0-5) Urine Epithelial Cells 0-5 /lpf (0-5) Urine Bacteria 3+ (NEG) Date/Time Source Procedure Growth Status 03/28/17 16:00 Stool C.difficile Toxin B Gene (PCR) - Final No C. difficile toxin B gene detected Complete Laboratory results as reviewed by me. Medications Administered Medications (Trade) Dose Ordered Sig/Tamar Route Start Time Stop Time Status Last Admin Dose Admin Morphine Sulfate (MoRPHine SULFATE INJ) 4 mg ONE STAT IV 03/28/17 10:08 03/28/17 10:12 DC 03/28/17 10:44 4 MG Sodium Chloride 1,000 ml @ 999 mls/hr Q1H1M STAT IV 03/28/17 10:08 03/28/17 11:08 DC 03/28/17 10:32 999 MLS/HR Dextrose/Sodium Chloride 1,000 ml @ 75 mls/hr [id number] STAT IV 03/28/17 13:14 03/29/17 02:33 03/28/17 16:59 75 MLS/HR Ceftriaxone Sodium (Rocephin Inj) 1 gm STK-MED ONCE .ROUTE 03/28/17 13:29 03/28/17 13:30 DC 03/28/17 13:29 1 GM ED Course 0949: The patient was evaluated in room C2B. A complete history and physical exam was performed. 1008: NSS 1000 ml @ 999 mls/hr IV, Morphine sulfate 4 mg IV 1141: I reassessed the patient at this time. She is having continued pain. I discussed the results and treatment plan with the patient. I answered all pertaining questions that she had. She expressed understanding and verbalized agreement. 1145: I spoke with Dr. Law of general surgery. We discussed the patient' s case. He recommended admitting to medicine. He will have Warren Sanderson PA-C evaluate the patient. 1149: I discussed the patient's case with Warren Sanderson PA-C. He will come to the ED to evaluate the patient. 1155: I spoke with Zoey Pruitt PA-C. We discussed the patients case. The patient will be evaluated by the [facility] for further management. 1156: I updated the patient and she is in agreement with the treatment plan. 1207: I discussed the patient's case with Dr. Papo Varma, the hospitalist with [facility]. He will discus the case with general surgery. Medical Decision This is a 36-year-old female who presents with abdominal pain and urinary symptoms. Differential diagnosis includes UTI, pyelonephritis, kidney stone, enteritis, bowel obstruction. I did perform a limited focused review of portions of the patient's old chart on the electronic medical record. The patient was seen here March 07 and diagnosed with a UTI. She was placed on Levaquin, but her urine culture grew out bacteria resistant to Levaquin. She had pancytopenia at that time. Prior urine culture from December grew out klebsiella. Medication Reconciliation: I attest that I have personally reviewed the patient' s current medication list. Blood Pressure Screening: Patient was found to have normal blood pressure on screening and does not require follow-up. I did evaluate the patient as noted above. The patient is presenting with abdominal pain and urinary symptoms. She has a history of frequent UTIs. IV access was established. I did treat her with IV morphine and Zofran. She is also given normal saline IV. I did order and review the patient's urinalysis as described above. She does have evidence of infection. This was a catheterized specimen. Urine culture is pending. I did order and review the patient's blood work as noted in the electronic medical record. Her thrombocytopenia is improved. She is hemoconcentrated due to her dehydration. I did order a CT of the abdomen and pelvis. I did review the images myself as well as the radiology report as described above.She does have evidence of a high -grade obstruction on CT scan. I did reevaluate the patient. She states she still has pain. She has very mild to moderate tenderness in the lower abdomen. She is not nauseated. I did discuss the test results with her. I did discuss the case with the surgeon on-call. I also spoke to the hospitalist. She was admitted to the hospital. Consults Time Called: 1142 Consulting Physician: Dr. Law Returned Call: [address] Law of general surgery. We discussed the patient's case. He recommended admitting to medicine. He will have Warren Sanderson PA-C evaluate the patient. Additional Consults: Time Called: 1147 Consulted Physician: Warren Sanderson PA-C Returned Call: 1141 Additional Comments: I discussed the patient's case with Warren Sanderson PA-C. He will come to the ED to evaluate the patient. Time Called: 1151 Consulted Physician: Zoey Pruitt PA-C Returned Call: 1155 Additional Comments: I spoke with Zoey Pruitt PA-C. We discussed the patients case. The patient will be evaluated by the [facility] for further management. Impression Primary Impression: SBO (small bowel obstruction) Additional Impressions: Urinary tract infection Dehydration Thrombocytopenia Scribe Attestation The scribe's documentation has been prepared under my direct and personally reviewed by me in its entirety. I confirm that the note above accurately reflects all work, treatment, procedures, and medical decision making performed by me. Departure Information Dispostion Being Evaluated By Hospitalist Prescriptions Diphenhy/Alum/Mag/Sucralfa (Magic Swizzle - Diphenhy/Alum/Mag/Sucralfa) Susp 1 TSP PO Q4H Y for UD, #200 ML 1 Refill 30ML DIPHENHYDRAMINE SLN 12.5/5ML 60ML MAALOX 4GM CARAFATE SWISH AND SPIT Prov: Nya Pruitt PA-C 03/28/17 Referrals Xuan Golden PA-C (PCP) Patient Instructions My [facility] Problem Qualifiers Additional Impressions: Urinary tract infection Urinary tract infection type: site unspecified Hematuria presence: without hematuria Qualified Codes: N39.0 - Urinary tract infection, site not specified
[2017-03-28] MEDS: LORAZEPAM 0.5 MG TAB PO PRN (19:10)
--- NOTE | 2017-03-28 20:10 | GASTROINTESTINAL CONSULTATION ---
DATE OF CONSULTATION: 03/28/2017 AGE: 36. SEX: Female. RACE: . ATTENDING PHYSICIAN: Dr. Pruitt CONSULTING PHYSICIAN: Douglas Jaimes DO REASON FOR CONSULTATION: Crohn's disease, bowel loop distension. HISTORY OF PRESENT ILLNESS: Nya Geronimo is a 36-year-old female, with a significant past medical history that includes a history of Crohn's disease status post colectomy with ileostomy for questionable colon and rectal cancer. She follows with Dr. Kan in [facility]. She was last admitted to [facility] in December of this year and at that time was noted to have intractable abdominal pain and persistent leukopenia. She, at that time, did have a CT scan of the abdomen and pelvis with IV contrast only showing slightly progressive splenomegaly compared to her prior exam and findings of a prior colectomy and right lower quadrant ileostomy with several slightly distended loops of bowel within the soft tissue pelvic region. She was admitted at that point. It should be noted that she did exhibit narcotic seeking behavior at that time. On discharge, she was given prescription for Entocort therapy after I had a discussion with Dr. Kan. She had previously failed Remicade therapy and due to her persistent leukopenia, it was felt that she was not a candidate for immunosuppressive therapy including thiopurines as well as biologic therapy. She returned to the Department of Emergency Medicine today with complaints of pelvic pain and severe abdominal pain. Her laboratory studies today included a white blood cell count of 5.23, hemoglobin 16.5, hematocrit 50.0 and a platelet count of 94. Her sodium was 137, potassium 3.8, chloride 107, bicarbonate 22, BUN 19, creatinine 1.3, AST and ALT were 44 and 137 and alkaline phosphatase was 140. UA did show greater than 30 white blood cells and 3+ bacteria. She was given IV ceftriaxone in the ER. She also underwent a CT scan of the abdomen and pelvis in the ER which showed moderate distention of the stomach and duodenum with focal area of transition collapsed bowel of the proximal jejunum causing high grade obstruction; no pneumoperitoneum or pneumatosis was noted. She was seen by Dr. Velasquez as well as Jarvis Sanderson, the surgical PA in the ER and it was not felt that the patient had any evidence of a surgical abdomen. Her white blood cell count was normal. She was not having any obstructive symptoms including nausea, vomiting and her abdomen was soft. At the time that I saw the patient, she stated that she was still having abdominal pain. She did appear comfortable. She was having a conversation with her and mother who were at her bedside. She states that since she last saw me and was started on Entocort therapy, she has felt much better. She has not seen Dr. Kan since our last encounter in December. She describes her abdominal pain now as 2/10 in intensity, radiating into her back and describes it as a chronic ache. She does ask for narcotic analgesics and was disappointed when I explained to her that I would not recommend narcotic analgesic use for her pain as they can decrease GI motility and worsen symptoms of an ileus or cause an ileus and also can worsen or cause a bowel obstruction as well. She did question me extensively on what medications would be prescribed for her pain control and I informed her that I would defer this to her primary team and to pain management. She denied any nausea or vomiting. She further denied any fevers, chills or hematemesis. She states that she is having ostomy output, which is brown liquid. A C. diff test was negative in the Department of Emergency Medicine. Urine culture was pending. She had no further complaints. PAST MEDICAL HISTORY: Include Crohn's disease, a history of colorectal cancer, depression, endometriosis, fibromyalgia, migraine headaches, Raynaud's disease, anxiety, interstitial cystitis, thrombocytopenia and leukopenia. PAST SURGICAL HISTORY: Include laparoscopy, total colectomy with ileostomy, appendectomy and hysterectomy. ALLERGIES: ADHESIVES, ALBUTEROL, BEE STINGS, BARIUM SULFATE, CLARITHROMYCIN, HYDROMORPHONE, HYDROXYZINE, TORADOL, LATEX LOBSTER, ZOFRAN, OXYCODONE AND SPLENDA. MEDICATIONS AT PRESENT: Include ceftriaxone 1 gram IV q. 24 hours, Entocort 9 mg p.o. daily, Singulair 10 mg p.o. daily, Prozac 40 mg p.o. at bedtime, Prozac 20 mg at bedtime, Ativan 0.5 mg p.o. t.i.d. p.r.n. anxiety, Pyridium 200 mg p.o. t.i.d. p.r.n. bladder pain and Reglan 10 mg IV q. 6 p.r.n. nausea. SOCIAL HISTORY: She is . No tobacco, alcohol or illicit drug use. FAMILY HISTORY: Negative for GI malignancy or inflammatory bowel disease. REVIEW OF SYSTEMS: Negative x12 system review other than pertinent positives listed in the HPI. PHYSICAL EXAMINATION: VITAL SIGNS: Include temperature 36.6, pulse 78, respirations 16, blood pressure 102/67 and pulse ox 97% on room air. GENERAL: She is awake, cooperative and in no acute distress. HEAD: Normocephalic and atraumatic. EYES: Pupils are equally round. Extraocular muscles are intact. ENT: External evaluation of ears and nose are normal. Oropharynx is clear. NECK: Soft and supple. There is no JVD or lymphadenopathy. CHEST: Clear to auscultation bilaterally. CARDIOVASCULAR SYSTEM: Regular rate and rhythm. ABDOMEN: Soft, nontender with palpation using stethoscope; however, noted tenderness to palpation without stethoscope. Ostomy bag draining liquid stool. EXTREMITIES: No clubbing, cyanosis or edema. SKIN: Soft and pink. Good turgor. RADIOGRAPHIC STUDIES AND LABORATORY STUDIES: Reviewed in the HPI. IMPRESSION: A 36-year-old female, with a history of Crohn's status post colectomy with ostomy with questionable small-bowel obstruction and abdominal pain on this admission. PLAN: At the present time, I agree with Dr. Velasquez that the patient does not have any evidence of a surgical abdomen. I believe that the radiographic findings are contradictory to the patient's clinical presentation and in that regard, I did discuss this case with radiologist and decision was made to order an upper GI with small bowel follow-through for further evaluation of the patient's symptoms. I did inform the patient in the future to not undergo CT imaging that does not include p.o. contrast due to her past surgical history and post-surgical anatomy as she is being exposed to radiation therapy without the full benefit of CT imaging. I would hold off on treating her pain with narcotic analgesics as much as possible as these can slow the GI tract and delay GI motility. I would continue her on Entocort 9 mg p.o. daily. I will follow her clinical course and make further recommendations following the above noted testing. If, in fact, she would have any evidence of a need for surgical intervention I would recommend that the patient be transferred to [facility] where her prior surgeries have been performed. Once again, thanks for allowing me to participate in the care of this patient. If you have any further questions, please do not hesitate in contacting me. JEANNIE
[2017-03-28] MEDS: FLUOXETINE HCL 20 MG CAP PO SCH ×2 (20:44→20:45)
[2017-03-28 23:44] VITALS: BP 100/69; PULSE 72; TEMP 36.6; O2SAT 96
[2017-03-28] MEDS ORDERED: PANTOprazole SOD 40 MG TAB PO ONE (23:53)
[2017-03-29] VITALS (9 sets, daily range): BP systolic 90–115; BP diastolic 60–76; PULSE 62–88; TEMP 36.3–36.8; O2SAT 96–100
[2017-03-29 07:39] LABS: BUN/CREATININE RATIO 12.1 (10-20); CALCIUM 8.4 mg/dl (8.5-10.1); POTASSIUM 3.7 mmol/L (3.5-5.1)
[2017-03-29 07:43] LABS: ALB/GLOB RATIO 1.3 (0.9-2)
[2017-03-29 07:44] LABS: HEMATOCRIT 37.8 % (37-47); MEAN CELL VOLUME 82.2 fL (80-100); MEAN CORPUSCULAR HEMOGLOBIN 26.3 pg (25-34); MEAN PLATELET VOLUME 8.8 fL (7.4-10.4); PLATELET COUNT 71 K/uL (130-400); WHITE BLOOD COUNT 3.61 K/uL (4.8-10.8)
[2017-03-29 07:48] LABS: ANISOCYTOSIS PRESENT; COMPLETE YES; ECHINOCYTES 1+; EOSINOPHIL % 4.3 %; NEUTROPHILS % 43.5 %; POIKILOCYTOSIS PRESENT
--- NOTE | 2017-03-29 08:58 | PROGRESS NOTE ---
DATE: 03/29/2017 DATE: 03/29/2017 SUBJECTIVE: I am seeing Nya as she was in the wheelchair done by the x-ray department where she was feeling fine. The only complaint she had was headache at this time. She denies any nausea. The abdominal pain is in lower abdomen and pretty much the same according to the patient. She had some output through the ileostomy. Her last vitals and labs were noted. At this time, will start her on some clear liquids. I reviewed the x-rays she had yesterday with the radiologist and also with the prior x-rays. She seems like she may have had a proximal small-bowel obstruction, but nothing significant to the point that she has had 3 months ago. There was a question of an internal hernia, but this was a weak call by the initial x-ray reading. Having said this there is no abdominal findings at time to warrant surgery. As stated, we will start her on some clear liquids.
--- NOTE | 2017-03-29 09:43 | DIAGNOSTIC IMAGING REPORT ---
GI W/AIR SMALL BOWEL ROUTINE CLINICAL HISTORY: Small bowel obstruction COMPARISON STUDY: CT scan dated 03/28/2017 FLUOROSCOPY TIME: 4.1 minutes. NUMBER OF FLUOROSCOPIC IMAGES: 32 FINDINGS: The patient swallowed effervescent granules and barium without difficulty. No gastric masses were visualized. No esophageal masses were visualized. There is no gastric outlet obstruction. The duodenal bulb appeared normal. The ligament Treitz is located in to the left of the spine.. There is a small diverticulum arising from the transverse duodenum. The patient was administered Enterovue a small bowel follow-through was performed. Contrast reached the patient's ostomy within 40 minutes. There are no abnormally dilated loops of jejunum or ileum. Spot films of small bowel were unremarkable. IMPRESSION: 1. Postsurgical changes of a colectomy with right lower quadrant ileostomy 2. No evidence of bowel obstruction. Normal-appearing small bowel Electronically signed by: Jamie Ortiz M.D. 03/29/2017 9:41 AM Dictated Date/Time: 03/29/2017 9:35 AM
[2017-03-29] MEDS: BUDESONIDE EC 3 MG CAP PO SCH (10:09)
[2017-03-29] MEDS: MONTELUKAST SOD 10 MG TAB PO SCH (10:10)
[2017-03-29] MEDS: PANTOprazole SOD 40 MG TAB PO SCH ×2 (10:11→21:10)
[2017-03-29] MEDS: METOCLOPRAMIDE HCL INJ 5 MG/ML 2 ML VIAL IV PRN (10:14)
--- NOTE | 2017-03-29 10:14 | Progress Note ---
Progress Note Date of Service Mar 29, 2017. Progress Note ID Consult Dictated #[id number] A/P: 1. UTI - E.coli -Continue ctx for now, final will depend on culture sensitivities -Will need 3 days total, prefer IV/IM secondary to absorption concerns -thank you
[2017-03-29] MEDS ORDERED: ACETAMINOPHEN 325 MG TAB ONE (10:27)
--- NOTE | 2017-03-29 10:28 | Gastroenterology Progress Note ---
Progress Note Date of Service: Mar 29, 2017 Subjective Pt evaluation today including: conversation w/ patient, physical exam, lab review, review of studies Patient is a 36 yo female hospitalized with abdominal pain and possible bowel obstruction. The patient denies new complaints today. She has been advanced to a clear liquid diet per surgery, though she did just return from radiology and has not attempted to eat. She reports her abdominal pain is stable from yesterday. She reports a headache. She reports liquid ostomy output. She has had negative C diff testing. She offers no new complaints. UGI with SBFT was unremarkable. Review of Systems Constitutional: No fever, No chills Eyes: No problem reported Abdomen: + pain, No nausea, No vomiting, No constipation, No GI bleeding Musculoskeletal: No joint pain Skin: No problem reported Medications Current Inpatient Medications Medications (Trade) Dose Ordered Sig/Tamar Route Start Time Stop Time Status Last Admin Dose Admin Ceftriaxone Sodium 1 gm/ Dextrose 50 ml @ 100 mls/hr Q24H IV 03/29/17 14:00 04/06/17 14:29 Budesonide (Entocort EC Cap) 9 mg DAILY PO 03/29/17 09:00 04/28/17 08:59 03/29/17 10:09 9 MG Fluoxetine HCl (Prozac Cap) 40 mg HS PO 03/28/17 21:00 04/27/17 20:59 03/28/17 20:44 40 MG Fluoxetine HCl (Prozac Cap) 20 mg HS PO 03/28/17 21:00 04/27/17 20:59 03/28/17 20:45 20 MG Montelukast Sodium (Singulair Tab) 10 mg DAILY PO 03/29/17 09:00 04/28/17 08:59 03/29/17 10:10 10 MG Lorazepam (Ativan Tab) 0.5 mg TID PRN PO 03/28/17 14:00 04/27/17 13:59 03/28/17 19:10 0.5 MG Phenazopyridine HCl (Pyridium Tab) 200 mg TID PRN PO 03/28/17 14:00 04/27/17 13:59 Metoclopramide HCl (Reglan Inj) 10 mg Q6H PRN IV 03/28/17 14:00 04/27/17 13:59 03/29/17 10:14 10 MG Pantoprazole Sodium (Protonix Tab) 40 mg BID PO 03/29/17 09:00 04/28/17 08:59 03/29/17 10:11 40 MG Objective Vital Signs Date Time Temp Pulse Resp B/P (MAP) Pulse Ox O2 Delivery O2 Flow Rate FiO2 03/29/17 09:01 97 Room Air 03/29/17 07:51 36.3 62 19 90/60 (70) 97 Room Air 03/28/17 23:44 36.6 72 16 100/69 (79) 96 Room Air 03/28/17 19:10 Room Air 03/28/17 17:04 36.6 78 16 102/67 (79) 97 Room Air 03/28/17 12:40 74 18 98/70 98 Room Air 03/28/17 12:32 97 Room Air 03/28/17 10:46 76 18 111/75 97 Room Air Physical Exam General Appearance: WD/WN, no apparent distress Eyes: normal inspection, PERRL Respiratory/Chest: lungs clear Cardiovascular: regular rate, rhythm Abdomen: normal bowel sounds, soft, + tenderness (suprapubic tenderness) Extremities: non-tender Neurologic/Psych: alert, oriented x 3 Skin: normal color Laboratory Results Last 24 Hours Test 03/28/17 10:30 03/28/17 11:05 03/29/17 00:00 03/29/17 06:50 White Blood Count 5.23 K/uL 3.61 K/uL Red Blood Count 6.12 M/uL 4.60 M/uL Hemoglobin 16.5 g/dL 12.1 g/dL Hematocrit 50.0 % 37.8 % Mean Corpuscular Volume 81.7 fL 82.2 fL Mean Corpuscular Hemoglobin 27.0 pg 26.3 pg Mean Corpuscular Hemoglobin Concent 33.0 g/dl 32.0 g/dl Platelet Count 94 K/uL 71 K/uL Mean Platelet Volume 9.8 fL 8.8 fL Neutrophils (%) (Auto) 53.9 % Lymphocytes (%) (Auto) 36.1 % Monocytes (%) (Auto) 7.1 % Eosinophils (%) (Auto) 2.5 % Basophils (%) (Auto) 0.2 % Neutrophils # (Auto) 2.82 K/uL Lymphocytes # (Auto) 1.89 K/uL Monocytes # (Auto) 0.37 K/uL Eosinophils # (Auto) 0.13 K/uL Basophils # (Auto) 0.01 K/uL RDW Standard Deviation 45.1 fL 45.3 fL RDW Coefficient of Variation 15.3 % 15.0 % Immature Granulocyte % (Auto) 0.2 % Immature Granulocyte # (Auto) 0.01 K/uL Toxic Granulation 1+ Toxic Vacuolation 1+ Platelet Estimate DECREASED Poikilocytosis PRESENT PRESENT Sodium Level 137 mmol/L 141 mmol/L Potassium Level 3.8 mmol/L 3.7 mmol/L Chloride Level 107 mmol/L 115 mmol/L Carbon Dioxide Level 22 mmol/L 16 mmol/L Anion Gap 8.0 mmol/L 10.0 mmol/L Blood Urea Nitrogen 19 mg/dl 12 mg/dl Creatinine 1.30 mg/dl 1.00 mg/dl Est Creatinine Clear Calc Drug Dose 46.6 ml/min 60.6 ml/min Estimated GFR () 60.7 83.4 Estimated GFR (Non- 52.4 71.9 BUN/Creatinine Ratio 14.5 12.1 Random Glucose 99 mg/dl 80 mg/dl Calcium Level 9.4 mg/dl 8.4 mg/dl Phosphorus Level 5.2 mg/dl Magnesium Level 2.2 mg/dl Total Bilirubin 0.9 mg/dl 0.6 mg/dl Direct Bilirubin 0.2 mg/dl Aspartate Amino Transf (AST/SGOT) 44 U/L 25 U/L Alanine Aminotransferase (ALT/SGPT) 137 U/L 76 U/L Alkaline Phosphatase 140 U/L 90 U/L Total Protein 8.4 gm/dl 5.8 gm/dl Albumin 4.7 gm/dl 3.3 gm/dl Lipase 316 U/L Urine Color ORANGE Urine Appearance CLEAR Urine pH Urine Specific [place] 1.010 Urine Protein NEG Urine Glucose (UA) Urine Ketones Urine Occult Blood Urine Nitrite Urine Bilirubin Urine Urobilinogen Urine Leukocyte Esterase Urine RBC 0-4 /hpf Urine WBC >30 /hpf Urine Epithelial Cells 0-5 /lpf Urine Bacteria 3+ Neutrophils % (Manual) 43.5 % Lymphocytes % (Manual) 47.0 % Monocytes % (Manual) 5.2 % Eosinophils % (Manual) 4.3 % Neutrophils # (Manual) 1.57 K/uL Total Absolute Neutrophils 1.57 K/uL Lymphocytes # (Manual) 1.70 K/uL Total Absolute Lymphocytes 1.70 K/uL Monocytes # (Manual) 0.19 K/uL Eosinophils # (Manual) 0.16 K/uL Anisocytosis PRESENT Echinocytes 1+ Globulin 2.5 gm/dl Albumin/Globulin Ratio 1.3 Assessment and Plan Patient is a 36 yo female with a history of Crohn's Disease s/p colectomy with ostomy admitted for questionable SBO and abdominal pain. Agree with surgery that this does not appear to be a surgical issue at this time. Would recommend advancing diet as tolerated and continuation of her Entocort 9 mg po daily. Given her unremarkable UGI w/ SBFT, patient is okay for discharge from a GI perspective. Thank you for allowing us to participate in the care of this patient. If you should have any further questions or concerns, do not hesitate to contact us. Agree with FRANKY Abdullahi as above Abd: Soft, NT, ND Advance diet as tolerated Continue Entocort 9mg by mouth daily Will sign off at present, patient will followup in our office as an outpatient.
[2017-03-29] MEDS ORDERED: NURSING VERBAL MED ORDER ONE (10:30)
[2017-03-29] MEDS ORDERED: ACETAMINOPHEN 325 MG TAB PO PRN (10:45)
--- NOTE | 2017-03-29 10:50 | INFECT. DISEASE CONSULTATION ---
DATE OF CONSULTATION: 03/29/2017 DATE OF CONSULTATION: 03/29/2017 REQUESTING PHYSICIAN: Dr. Tobias. HISTORY OF PRESENT ILLNESS: This is a 36-year-old female who was admitted with worsening abdominal pain. She does have a history of Crohn's disease and she has undergone a total colectomy with end ileostomy at [facility] in 2016. She also states that she has had a history of C. diff in the past which resolved with her abdominal surgeries. She recently had been treated for urinary tract infection. A urine culture dated 03/07/2017 grew E. coli. She states that she has been on 8 separate antibiotics in the past few months to treat for urinary tract infection; however, she continues with abdominal pain and does not feel she has had significant result with these antibiotics as an outpatient. Her last antibiotic was within the last 1-2 weeks. She is unable to tell me the name of this antibiotic. She has not had any worsening output from her ostomy while on antibiotics. She denies any fevers or chills at home. She does admit to some dysuria but denies any hematuria. She also does admit to increased frequency. A urinalysis was done in the hospital and showed greater than 30 WBCs with 3+ bacteria. Urine culture is pending. C. diff was done and was negative. A CAT scan of the abdomen and pelvis showed obstruction with internal hernia; however, it was felt that her pain was not in proportion with these findings and a GI follow through was done this morning. Results of this are pending. She is feeling somewhat nauseated after drinking barium, but otherwise states overall she is feeling better. She has been afebrile since admission. She did have a mild elevation of creatinine upon admission, but this has improved today. Her white blood cell count has been normal. She does have a history of leukopenia. Her white blood cell count today is 3.6. She is tolerating Rocephin without difficulty. She is only eating clear liquids at this time. She does have concerns regarding malabsorption of oral antibiotics and is requesting a port be placed. She denies any chest pain, cough or shortness of breath. She has minimal abdominal pain at this time. She is tolerating clears. All remaining review of systems are reviewed and are unremarkable. PAST MEDICAL HISTORY: Significant for anxiety, Crohn's disease, depression, endometriosis, fibromyalgia, iron deficiency anemia, interstitial cystitis, migraine headaches, Raynaud's thrombocytopenia. PAST SURGICAL HISTORY: Significant for EGD, multiple laparoscopic surgeries, total colectomy, appendectomy, hysterectomy and end ileostomy. FAMILY HISTORY: Noncontributory. SOCIAL HISTORY: Negative for tobacco use, alcohol use or drug use. She is and lives with family. She denies sick contacts. ALLERGIES: SHE HAS ALLERGIES TO CLARITHROMYCIN, HYDROMORPHONE, ZOFRAN, HYDROXYZINE, ADHESIVE TAPE, ALBUTEROL, LATEX, OXYCODONE, BARIUM. CURRENT MEDICATIONS: Include Rocephin, Singulair, Protonix, Prozac, Ativan, Pyridium and Reglan. PHYSICAL EXAMINATION: VITAL SIGNS: She is afebrile, pulse is 62, respiratory rate 19, blood pressure 90/60 and oxygen saturation is 97% on room air. GENERAL: She is awake, alert and oriented x3. She is in no acute distress. HEAD, EYES, EARS, NOSE, AND THROAT: Mucous membranes are moist. Extraocular muscles are intact. HEART: Regular. LUNGS: Clear. ABDOMEN: Soft, nondistended. There is some suprapubic discomfort to palpation. Ostomy is in place. There is no edema. SKIN: Without rash. LABORATORY STUDIES: CBC reveals a white blood cell count of 3.6, hemoglobin 12.1 and platelets of 71. Chemistry panel reveals a sodium of 141, potassium 3.7, chloride 115, bicarb 16, BUN 12, creatinine 1.0, glucose is 88. Urinalysis showed greater than 30 WBCs and 3+ bacteria. GC and chlamydia are pending. A urine culture from the 10th is growing E. coli without sensitivities. A C. diff was negative. IMAGING: As reviewed previously. Her small bowel follow through shows no evidence of obstruction. ASSESSMENT AND PLAN: Escherichia coli urinary tract infection. At this time, she can remain on Rocephin. She would require 3 days of treatment. I do agree that absorption may be an issue for this patient. However, I do not feel port is necessary at this time. She should complete 72 hours of antibiotics. This can either be IV Rocephin or IM injection if need be upon discharge if E. coli is again sensitive as it was in February. Final recommendations will follow.
[2017-03-29] MEDS: CEFTRIAXONE SOD INJ 1 GM in DEXTROSE 5% ADD-VANTAGE 50ML 50 ML IV SCH (13:52)
--- NOTE | 2017-03-29 19:58 | Progress Note ---
Internal Med Progress Note Date of Service: Mar 29, 2017. Provider Documentation: SUBJECTIVE: diet advanced tolerating well denies of any abdominal pain complains of urinary symptoms-increased frequency , dysuria had headache earlier today improved with PRN Headache OBJECTIVE: Vital Signs-as noted below Exam: General-no sign of distress Eyes-sclera non icteric ENT-NAD Neck-no JVD Lungs-CTA Heart-regular S1/S2 Abdomen-soft, non tender /colostomy bag present Extremities-no lower ext edema Neuro-AAO x3, no focal deficit Lab data as noted below. ASSESSMENT & PLAN: ABDOMINAL PAIN /NO EVIDENCE OF BOWEL OBSTRUCTION Hx Crohn's disease with dysplasia s/p total proctocolectomy with end ileostomy ( [facility] in 09/2015), appendectomy, hysterectomy, and multiple laparoscopies Presents with abdominal pain, increased liquid output from ileostomy CT abdomen- Moderate distention of the stomach and duodenum with focal area of transitioned collapsed bowel of the proximal jejunum noted with associated swirling of the mesentery within the right midabdomen suggesting internal hernia causing associated high-grade obstruction. No pneumoperitoneum or pneumatosis. Prior colectomy with right lower quadrant ileostomy. appreciate input form surgery and GI small bowel follow through shows passage of contrast in colon -no evidence of obstruction diet advanced tolerating well CROHN'S DISEASE cont Entocort 9 mg daily appreciate input from GI no further intervention /images needed UTI urine culture E Coli started on Rocephin Hx frequent UTI's (prior cultures show E. coli and Klebsiella with some resistance, however + sensitivity to ceftriaxone) appreciate Consult from infectious disease 'will need IV /IM Rocephin for X3 days - THROMBOCYTOPENIA chronic Platelets are 94; no sign of bleeding Follows with Dr. Arredondo for hematology CHRONIC PAIN On chronic morphine sulfate IR 30 mg TID PRN Verified with [place] drug [place] Hold narcotics for now to prevent slowing abdominal transition time pt is counselled ordered for IV Tylenol PRN for headache ASTHMA Not in acute exacerbation Continue home inhaler DEPRESSION/ ANXIETY Continue home medications FULL CODE DISPOSITION Discharge home when medically stable Vital Signs: Date Time Temp Pulse Resp B/P (MAP) Pulse Ox O2 Delivery O2 Flow Rate FiO2 03/29/17 15:30 97 Room Air 03/29/17 15:20 36.8 77 18 115/76 (89) 96 Room Air 03/29/17 14:02 81 101/67 (78) 03/29/17 11:09 97 Room Air 03/29/17 09:40 Room Air 03/29/17 09:01 97 Room Air 03/29/17 07:51 36.3 62 19 90/60 (70) 97 Room Air 03/28/17 23:44 36.6 72 16 100/69 (79) 96 Room Air Lab Results: Results Past 24 Hours Test 03/29/17 00:00 03/29/17 06:50 Range/Units White Blood Count 3.61 4.8-10.8 K/uL Red Blood Count 4.60 4.2-5.4 M/uL Hemoglobin 12.1 12.0-16.0 g/dL Hematocrit 37.8 37-47 % Mean Corpuscular Volume 82.2 80-100 fL Mean Corpuscular Hemoglobin 26.3 25-34 pg Mean Corpuscular Hemoglobin Concent 32.0 32-36 g/dl Platelet Count 71 130-400 K/uL Mean Platelet Volume 8.8 7.4-10.4 fL RDW Standard Deviation 45.3 36.4-46.3 fL RDW Coefficient of Variation 15.0 11.5-14.5 % Neutrophils % (Manual) 43.5 % Lymphocytes % (Manual) 47.0 % Monocytes % (Manual) 5.2 % Eosinophils % (Manual) 4.3 % Neutrophils # (Manual) 1.57 1.4-6.5 K/uL Total Absolute Neutrophils 1.57 1.4-6.5 K/uL Lymphocytes # (Manual) 1.70 1.2-3.4 K/uL Total Absolute Lymphocytes 1.70 1.2-3.4 K/uL Monocytes # (Manual) 0.19 0.11-0.59 K/uL Eosinophils # (Manual) 0.16 0-0.5 K/uL Poikilocytosis PRESENT Anisocytosis PRESENT Echinocytes 1+ Sodium Level 141 136-145 mmol/L Potassium Level 3.7 3.5-5.1 mmol/L Chloride Level 115 98-107 mmol/L Carbon Dioxide Level 16 21-32 mmol/L Anion Gap 10.0 3-11 mmol/L Blood Urea Nitrogen 12 7-18 mg/dl Creatinine 1.00 0.60-1.20 mg/dl Est Creatinine Clear Calc Drug Dose 60.6 ml/min Estimated GFR () 83.4 Estimated GFR (Non- 71.9 BUN/Creatinine Ratio 12.1 10-20 Random Glucose 80 70-99 mg/dl Calcium Level 8.4 8.5-10.1 mg/dl Total Bilirubin 0.6 0.2-1 mg/dl Aspartate Amino Transf (AST/SGOT) 25 15-37 U/L Alanine Aminotransferase (ALT/SGPT) 76 12-78 U/L Alkaline Phosphatase 90 45-117 U/L Total Protein 5.8 6.4-8.2 gm/dl Albumin 3.3 3.4-5.0 gm/dl Globulin 2.5 2.5-4.0 gm/dl Albumin/Globulin Ratio 1.3 0.9-2
[2017-03-29] MEDS: MICONAZOLE NITRATE-7 (100 MG EA SUPP) BOX PV SCH (21:00)
[2017-03-29] MEDS: FLUOXETINE HCL 20 MG CAP PO SCH ×2 (21:11)
[2017-03-29] MEDS: ACETAMINOPHEN IV 650 MG in EMPTY BAG 0 ML IV PRN (22:10)
[2017-03-29] MEDS: PHENAZOPYRIDINE HCL 200 MG TAB PO PRN (23:40)
[2017-03-30 07:15] VITALS: BP 106/60; PULSE 66; TEMP 36.7; O2SAT 99
[2017-03-30] MEDS: ACETAMINOPHEN IV 650 MG in EMPTY BAG 0 ML IV PRN ×3 (08:01→23:51)
[2017-03-30] MEDS: BOOST BREEZE NUTRITION DRINK 1 BOX PO SCH (09:31)
[2017-03-30] MEDS: MONTELUKAST SOD 10 MG TAB PO SCH (09:32)
[2017-03-30] MEDS: PHENAZOPYRIDINE HCL 200 MG TAB PO PRN ×2 (09:32→17:34)
[2017-03-30] MEDS: BUDESONIDE EC 3 MG CAP PO SCH (09:32)
[2017-03-30] MEDS: PANTOprazole SOD 40 MG TAB PO SCH ×2 (09:32→20:54)
[2017-03-30] MEDS: LORAZEPAM 0.5 MG TAB PO PRN ×2 (09:33→17:32)
--- NOTE | 2017-03-30 09:56 | Surgery Progress Note ---
Surgery Progress Note Date of Service Mar 30, 2017. Subjective Post OP Day: HD 3 + feeling well, + complaints (pain resolved), + bowel movement (ileostomy working well), + diet (regular) Objective Vital Signs: Date Time Temp Pulse Resp B/P (MAP) Pulse Ox O2 Delivery O2 Flow Rate FiO2 03/30/17 07:15 36.7 66 17 106/60 (75) 99 Room Air 03/29/17 23:35 36.5 67 16 105/71 (82) 97 Room Air 03/29/17 23:30 Room Air 03/29/17 15:30 97 Room Air 03/29/17 15:20 36.8 77 18 115/76 (89) 96 Room Air 03/29/17 14:02 81 101/67 (78) 03/29/17 11:09 97 Room Air General Appearance: WD/WN, no apparent distress Head: normocephalic, atraumatic Neck: supple, trachea midline Respiratory/Chest: lungs clear Cardiovascular: regular rate, rhythm Abdomen: normal bowel sounds, non tender, non distended, soft, + pertinent finding (ileostomy) Extremities: non-tender, no pedal edema Diagnostic Interpretation: GI W/AIR SMALL BOWEL ROUTINE CLINICAL HISTORY: Small bowel obstruction COMPARISON STUDY: CT scan dated 03/28/2017 FLUOROSCOPY TIME: 4.1 minutes. NUMBER OF FLUOROSCOPIC IMAGES: 32 FINDINGS: The patient swallowed effervescent granules and barium without difficulty. No gastric masses were visualized. No esophageal masses were visualized. There is no gastric outlet obstruction. The duodenal bulb appeared normal. The ligament Treitz is located in to the left of the spine.. There is a small diverticulum arising from the transverse duodenum. The patient was administered Enterovue a small bowel follow-through was performed. Contrast reached the patient's ostomy within 40 minutes. There are no abnormally dilated loops of jejunum or ileum. Spot films of small bowel were unremarkable. IMPRESSION: 1. Postsurgical changes of a colectomy with right lower quadrant ileostomy 2. No evidence of bowel obstruction. Normal-appearing small bowel Assessment & Plan partial SBO v. ileus likely from UTI -UGI w/SBFT without obstruction -ileostomy working -regular diet -discharge per medical team -will sign off
[2017-03-30] MEDS ORDERED: NURSING VERBAL MED ORDER ONE (13:30)
[2017-03-30] MEDS: CEFTRIAXONE SOD INJ 1 GM in DEXTROSE 5% ADD-VANTAGE 50ML 50 ML IV SCH (13:48)
[2017-03-30 14:52] VITALS: BP 102/70; PULSE 85; TEMP 36.7; O2SAT 97
[2017-03-30 16:30] VITALS: O2SAT 97
[2017-03-30] MEDS: TOPIRAMATE 100 MG TAB PO SCH ×2 (17:32→23:06)
[2017-03-30] MEDS: FLUOXETINE HCL 20 MG CAP PO SCH ×2 (20:56→20:57)
[2017-03-30] MEDS: MICONAZOLE NITRATE-7 (100 MG EA SUPP) BOX PV SCH ×2 (21:56→23:00)
[2017-03-30 23:18] VITALS: BP 111/70; PULSE 72; TEMP 36.4; O2SAT 96
[2017-03-30] MEDS: METOCLOPRAMIDE HCL INJ 5 MG/ML 2 ML VIAL IV PRN (23:50)
[2017-03-31 06:43] VITALS: BP 104/71; PULSE 79; TEMP 36.4; O2SAT 97
--- NOTE | 2017-03-31 07:25 | Progress Note ---
Internal Med Progress Note Date of Service: Mar 30, 2017. Provider Documentation: late entry pt seen on March 30 at 6: 30 pm SUBJECTIVE: Started on Topamax today headache has improved still has persistent urinary symptoms no complain of abdominal pain tolerating diet OBJECTIVE: Vital Signs-as noted below Exam: General-no sign of distress Eyes-sclera non icteric ENT-NAD Neck-no JVD Lungs-CTA Heart-regular S1/S2 Abdomen-soft, non tender /colostomy bag present Extremities-no lower ext edema Neuro-AAO x3, no focal deficit Lab data as noted below. ASSESSMENT & PLAN: ABDOMINAL PAIN /NO EVIDENCE OF BOWEL OBSTRUCTION Hx Crohn's disease with dysplasia s/p total proctocolectomy with end ileostomy ( [facility] in 09/2015), appendectomy, hysterectomy, and multiple laparoscopies Presents with abdominal pain, increased liquid output from ileostomy CT abdomen- Moderate distention of the stomach and duodenum with focal area of transitioned collapsed bowel of the proximal jejunum noted with associated swirling of the mesentery within the right midabdomen suggesting internal hernia causing associated high-grade obstruction. No pneumoperitoneum or pneumatosis. Prior colectomy with right lower quadrant ileostomy. appreciate input form surgery and GI small bowel follow through shows passage of contrast in colon -no evidence of obstruction diet advanced tolerating well CROHN'S DISEASE cont Entocort 9 mg daily appreciate input from GI no further intervention /images needed UTI urine culture E Coli started on Rocephin Hx frequent UTI's (prior cultures show E. coli and Klebsiella with some resistance, however + sensitivity to ceftriaxone) appreciate Consult from infectious disease cont IV Rocephin for X3 days -( day # 2 ) repeat urine culture prior to discharge THROMBOCYTOPENIA chronic Platelets are 94; no sign of bleeding Follows with Dr. Arredondo for hematology CHRONIC PAIN On chronic morphine sulfate IR 30 mg TID PRN Verified with [place] drug [place] Hold narcotics for now to prevent slowing abdominal transition time pt is counselled ordered for IV Tylenol PRN for headache added Topamax ( pt's home medication ) ASTHMA Not in acute exacerbation Continue home inhaler DEPRESSION/ ANXIETY Continue home medications FULL CODE DISPOSITION Discharge home when medically stable Vital Signs: Date Time Temp Pulse Resp B/P (MAP) Pulse Ox O2 Delivery O2 Flow Rate FiO2 03/31/17 06:43 36.4 79 18 104/71 (82) 97 Room Air 03/30/17 23:30 Room Air 03/30/17 23:18 36.4 72 16 111/70 (84) 96 Room Air 03/30/17 16:30 97 Room Air 03/30/17 14:52 36.7 85 14 102/70 (81) 97 Room Air 03/30/17 08:00 Room Air
[2017-03-31] MEDS: BOOST BREEZE NUTRITION DRINK 1 BOX PO SCH (08:44)
[2017-03-31] MEDS: MONTELUKAST SOD 10 MG TAB PO SCH (08:45)
[2017-03-31] MEDS: BUDESONIDE EC 3 MG CAP PO SCH (08:45)
[2017-03-31] MEDS: PANTOprazole SOD 40 MG TAB PO SCH ×2 (08:45→20:26)
[2017-03-31] MEDS: ACETAMINOPHEN IV 650 MG in EMPTY BAG 0 ML IV PRN (08:46)
[2017-03-31] MEDS: LORAZEPAM 0.5 MG TAB PO PRN ×2 (08:50→20:30)
[2017-03-31] MEDS: METOCLOPRAMIDE HCL INJ 5 MG/ML 2 ML VIAL IV PRN (09:25)
[2017-03-31] MEDS: TOPIRAMATE 100 MG TAB PO SCH ×2 (09:54→20:26)
[2017-03-31] MEDS: CEFTRIAXONE SOD INJ 1 GM in DEXTROSE 5% ADD-VANTAGE 50ML 50 ML IV SCH (13:33)
[2017-03-31 15:38] VITALS: BP 103/72; PULSE 84; TEMP 36.3; O2SAT 96
[2017-03-31 16:15] VITALS: O2SAT 96
--- NOTE | 2017-03-31 16:54 | Progress Note ---
Internal Med Progress Note Date of Service: Mar 31, 2017. Provider Documentation: SUBJECTIVE: does not have any specific complain today just wondering if repeat urine culture can be checked to assess UTI has resolved tolerating solid diet well no complain of abdominal pain OBJECTIVE: Vital Signs-as noted below Exam: General-no sign of distress Eyes-sclera non icteric ENT-NAD Neck-no JVD Lungs-CTA Heart-regular S1/S2 Abdomen-soft, non tender /colostomy bag present Extremities-no lower ext edema Neuro-AAO x3, no focal deficit Lab data as noted below. ASSESSMENT & PLAN: ABDOMINAL PAIN /NO EVIDENCE OF BOWEL OBSTRUCTION Hx Crohn's disease with dysplasia s/p total proctocolectomy with end ileostomy ( [facility] in 09/2015), appendectomy, hysterectomy, and multiple laparoscopies Presents with abdominal pain, increased liquid output from ileostomy CT abdomen- Moderate distention of the stomach and duodenum with focal area of transitioned collapsed bowel of the proximal jejunum noted with associated swirling of the mesentery within the right midabdomen suggesting internal hernia causing associated high-grade obstruction. No pneumoperitoneum or pneumatosis. Prior colectomy with right lower quadrant ileostomy. appreciate input form surgery and GI small bowel follow through shows passage of contrast in colon -no evidence of obstruction diet advanced tolerating well no further intervention needed CROHN'S DISEASE cont Entocort 9 mg daily appreciate input from GI no further intervention /images needed UTI urine culture E Coli started on Rocephin Hx frequent UTI's (prior cultures show E. coli and Klebsiella with some resistance, however + sensitivity to ceftriaxone) appreciate Consult from infectious disease cont IV Rocephin for X3 days -( day # 3 ) repeat urine culture ordered THROMBOCYTOPENIA chronic Platelets are 94; no sign of bleeding Follows with Dr. Arredondo for hematology CHRONIC PAIN/MIGRAINE HEADACHE On chronic morphine sulfate IR 30 mg TID PRN Verified [place] drug [place] Hold narcotics for now to prevent slowing abdominal transition time pt is counselled ordered for IV Tylenol PRN for headache added Topamax ( pt's home medication ) ASTHMA Not in acute exacerbation Continue home inhaler DEPRESSION/ ANXIETY Continue home medications FULL CODE DISPOSITION Discharge home when medically stable Vital Signs: Date Time Temp Pulse Resp B/P (MAP) Pulse Ox O2 Delivery O2 Flow Rate FiO2 03/31/17 15:38 36.3 84 18 103/72 (82) 96 Room Air 03/31/17 08:21 Room Air 03/31/17 06:43 36.4 79 18 104/71 (82) 97 Room Air 03/30/17 23:30 Room Air 03/30/17 23:18 36.4 72 16 111/70 (84) 96 Room Air
--- NOTE | 2017-03-31 16:56 | Discharge Instructions ---
Discharge Instructions Date of Service Mar 31, 2017. Admission Reason for Admission: Abdominal Pain Discharge Discharge Diagnosis / Problem: ABDOMINAL PAIN /HX OF CROHN;S DISEASE /UTI Discharge Goals Goal(s): Improve disease control, Diagnostic testing, Therapeutic intervention Activity Recommendations Activity Limitations: resume your previous activity . Instructions / Follow-Up Instructions / Follow-Up HOSPITAL FOLLOW UP WITH FAMILY PHYSICIAN IN A WEEK Current Hospital Diet Patient's current hospital diet: Regular Diet Discharge Diet Recommended Diet: Regular Diet Pending Studies Studies pending at discharge: no Medical Emergencies . Who to Call and When: Medical Emergencies: If at any time you feel your situation is an emergency, please call 911 immediately. . Non-Emergent Contact Non-Emergency issues call your: Primary Care Provider . . "Provider Documentation" section prepared by Geraldine Tobias. . VTE Core Measure Inpt VTE Proph given/why not?: SCD's
[2017-03-31] MEDS ORDERED: BACLOFEN 10 MG TAB PO PRN (17:00)
[2017-03-31] MEDS ORDERED: LEValbuterol HFA 15GM INHALER INH PRN (17:00)
[2017-03-31] MEDS: PHENAZOPYRIDINE HCL 200 MG TAB PO PRN (18:22)
[2017-03-31] MEDS: MICONAZOLE NITRATE-7 (100 MG EA SUPP) BOX PV SCH (20:27)
[2017-03-31] MEDS: FLUOXETINE HCL 20 MG CAP PO SCH ×2 (20:27)
[2017-03-31 23:20] VITALS: BP 106/69; PULSE 84; TEMP 36.8; O2SAT 96
[2017-04-01 07:19] VITALS: BP 94/63; PULSE 69; TEMP 36.6; O2SAT 96
[2017-04-01] MEDS ORDERED: LORATADINE 10 MG TAB PO SCH (09:00)
[2017-04-01] MEDS ORDERED: FLUTICASONE PROPIONATE NA SPR 16 GM BTL NAE SCH (09:00)
[2017-04-01] MEDS: PANTOprazole SOD 40 MG TAB PO SCH (09:13)
[2017-04-01] MEDS: BOOST BREEZE NUTRITION DRINK 1 BOX PO SCH (09:13)
[2017-04-01] MEDS: BUDESONIDE EC 3 MG CAP PO SCH (09:13)
[2017-04-01] MEDS: TOPIRAMATE 100 MG TAB PO SCH (09:13)
[2017-04-01] MEDS: MONTELUKAST SOD 10 MG TAB PO SCH (09:13)
[2017-04-01] MEDS: PHENAZOPYRIDINE HCL 200 MG TAB PO PRN (09:14)
[2017-04-01 10:23] LABS: CHLAMYDIA TRACH RNA*** NOT DETECTED (NOT DETECTED); GC (NEIS GONORRHOEAE)RNA** NOT DETECTED (NOT DETECTED)
[2017-04-01] MEDS: ACETAMINOPHEN IV 650 MG in EMPTY BAG 0 ML IV PRN ×2 (10:38→16:33)
[2017-04-01] MEDS: METOCLOPRAMIDE HCL INJ 5 MG/ML 2 ML VIAL IV PRN (10:38)
[2017-04-01 15:25] VITALS: BP 104/73; PULSE 81; TEMP 36.4; O2SAT 95
[2017-04-01] MEDS ORDERED: LDDP5 EX (19:50)
--- NOTE | 2017-04-01 19:59 | Progress Note ---
Internal Med Progress Note Date of Service: Apr 01, 2017. Provider Documentation: SUBJECTIVE: urine culture -negative growth no fever or chills pt continues to complain of non specific pain and discomfort counselled to avoid narcotics stable to be discharged home OBJECTIVE: Vital Signs-as noted below Exam: General-no sign of distress Eyes-sclera non icteric ENT-NAD Neck-no JVD Lungs-CTA Heart-regular S1/S2 Abdomen-soft, non tender /colostomy bag present Extremities-no lower ext edema Neuro-AAO x3, no focal deficit Lab data as noted below. ASSESSMENT & PLAN: ABDOMINAL PAIN /NO EVIDENCE OF BOWEL OBSTRUCTION Hx Crohn's disease with dysplasia s/p total proctocolectomy with end ileostomy ( [facility] in 09/2015), appendectomy, hysterectomy, and multiple laparoscopies Presents with abdominal pain, increased liquid output from ileostomy CT abdomen- Moderate distention of the stomach and duodenum with focal area of transitioned collapsed bowel of the proximal jejunum noted with associated swirling of the mesentery within the right midabdomen suggesting internal hernia causing associated high-grade obstruction. No pneumoperitoneum or pneumatosis. Prior colectomy with right lower quadrant ileostomy. appreciate input form surgery and GI small bowel follow through shows passage of contrast in colon -no evidence of obstruction diet advanced tolerating well no further intervention needed CROHN'S DISEASE cont Entocort 9 mg daily appreciate input from GI no further intervention /images needed UTI urine culture E Coli started on Rocephin Hx frequent UTI's (prior cultures show E. coli and Klebsiella with some resistance, however + sensitivity to ceftriaxone) appreciate Consult from infectious disease completed IV Rocephin for X3 days -( day # 3 ) repeat urine culture -no growth THROMBOCYTOPENIA chronic Platelets are 94; no sign of bleeding Follows with Dr. Arredondo for hematology CHRONIC PAIN/MIGRAINE HEADACHE On chronic morphine sulfate IR 30 mg TID PRN Verified with [place] drug [place] Hold narcotics for now to prevent slowing abdominal transition time pt is counselled ordered for IV Tylenol PRN for headache added Topamax ( pt's home medication ) ASTHMA Not in acute exacerbation Continue home inhaler DEPRESSION/ ANXIETY Continue home medications FULL CODE DISPOSITION Discharge home today Vital Signs: Date Time Temp Pulse Resp B/P (MAP) Pulse Ox O2 Delivery O2 Flow Rate FiO2 04/01/17 15:25 36.4 81 18 104/73 (83) 95 Room Air 8/14/17 15:05 Room Air 04/01/17 09:33 Room Air 04/01/17 07:19 36.6 69 18 94/63 (73) 96 Room Air 03/31/17 23:20 Room Air 03/31/17 23:20 36.8 84 16 106/69 (81) 96 Room Air
[2017-04-01] MEDS ORDERED: LIDODERM (LIDOCAINE) PATCH 5% TD SCH ×2 (20:00→21:00)
--- NOTE | 2017-04-01 20:00 | Discharge Summary ---
Discharge Summary Date of Service Apr 01, 2017. Discharge Summary Admission Date: Mar 28, 2017 at 16:00 Discharge Date: Apr 01, 2017 Principal Diagnosis: ABDOMINAL PAIN /HX OF CROHN;S DISEASE /UTI Procedures: CT ABDOMEN /PELVIS : IMPRESSION: 1. Moderate distention of the stomach and duodenum with focal area of transitioned collapsed bowel of the proximal jejunum noted with associated swirling of the mesentery within the right midabdomen suggesting internal hernia causing associated high-grade obstruction. No pneumoperitoneum or pneumatosis. 2. Prior colectomy with right lower quadrant ileostomy. SMALL BOWEL FOLLOW THROUGH : IMPRESSION: 1. Postsurgical changes of a colectomy with right lower quadrant ileostomy 2. No evidence of bowel obstruction. Normal-appearing small bowel Consultations: GI SURGERY Medication Reconciliation New Medications: Lidocaine (Lidocaine) 1 Patch Tdsy 1 PATCH EX DAILY, #30 PATCH Continued Medications: Acetaminophen-Caffeine (Excedrin Tension Headache) 1 Tab Tab 1 TAB PO UD PRN for Headache TAKE PER PACKAGE DIRECTIONS Baclofen (Lioresal) 10 Mg Tab 10 MG PO TID PRN for Hiccups, TAB Budesonide (Entocort Ec) 3 Mg Cap 9 MG PO DAILY for 30 Days, #90 CAP 2 Refills Celecoxib (Celebrex) 400 Mg Cap 400 MG PO BID, CAP Diphenhy/Alum/Mag/Sucralfa (Magic Swizzle - Diphenhy/Alum/Mag/Sucralfa) Susp 1 TSP PO Q4H PRN for UD, #200 ML 1 Refill 30ML DIPHENHYDRAMINE SLN 12.5/5ML 60ML MAALOX 4GM CARAFATE SWISH AND SPIT Fluoxetine (Prozac) 40 Mg Cap 40 MG PO HS, CAP TAKE ONE 40 MG CAPSULE ALONG WITH ONE 20 MG CAPSULE TO EQUAL 60 MG DAILY DOSE Fluoxetine Hcl (Prozac) 20 Mg Cap 20 MG PO HS, CAP TAKE ONE 20 MG CAPSULE ALONG WITH ONE 40 MG CAPSULE TO EQUAL 60 MG DAILY DOSE Fluticasone Propionate (Nasal) (Flonase Allergy Relief Ch) 50 Mcg/Act Spr 2 SPRAYS ROSARIO DAILY Levalbuterol Tartrate (Levalbuterol Tartrate Hfa) 45 Mcg/Act Aer 2 PUFFS INH Q4 PRN for Wheezing Loratadine (Claritin) 10 Mg Tab 10 MG PO DAILY, TAB Lorazepam (Ativan) 0.5 Mg Tab 0.5 MG PO TID PRN for Anxiety, TAB Metoclopramide (Reglan) Unknown Strength Tab 1 TAB PO TID PRN for Hiccups Montelukast Sodium (Singulair) 10 Mg Tab 10 MG PO DAILY, TAB Morphine Sulfate (Morphine Sulfate Ir) 15 Mg Tab 30 MG PO Q8 PRN for Pain Pantoprazole (Protonix) 40 Mg Tab 40 MG PO BID, TAB Pentosan Polysulfate Sodium (Elmiron) 100 Mg Cap 300 MG PO BID, CAP Phenazopyridine HCl (Pyridium) 200 Mg Tab 200 MG PO TID PRN for Bladder pain, #6 TAB Prochlorperazine Maleate (Compazine) 10 Mg Tab 10 MG PO TID PRN for Nausea, TAB Topiramate (Topamax) 100 Mg Tab 100 MG PO BID, TAB Admission Information HPI (per Admitting provider): This is a 36 year old female with PMH of Crohns disease with dysplasia s/p total proctocolectomy with end ileostomy ([facility] in 09/2015), hysterectomy , and multiple laparoscopies, who presents to the ED with abdominal and back pain x 2 days. Patient follows with Dr. Jaimes for GI. She was recently admitted at [facility] from 12/26-01/03 2017 for possible partial SBO. She was seen by surgery and GI. There was no surgical intervention. Patient reports being started on Entocort by Dr. Jaimes following that admission. Today she presents with pain across her lower abdomen and lower back x 2 days. She reports increased brown liquid output from her ileostomy. She is occasionally lightheaded and feeling crampy in the legs and dehydrated. States she is drinking fluids but they run through her. She reports dysuria and intermittent hematuria (resolved). She reports multiple recent UTI's with some antibiotic resistance over the past few months. Last abx finished 1.5 weeks ago- unsure which antibiotic. She states she is supposed to see infectious disease but has no appointment yet. Has had chills associated with UTI's. Has vaginal discharge and feels she may have a yeast infection. She reports spontaneous bruising on her legs. Follows with Dr. Arredondo for thrombocytopenia. She denies any fever, vomiting, belching, blood in stool. Physical Exam (per Admitting): General Appearance: WD/WN, no apparent distress, + pertinent finding ( at bedside) Head: normocephalic, atraumatic Eyes: normal inspection, sclerae normal ENT: normal ENT inspection, hearing grossly normal Neck: supple Respiratory/Chest: lungs clear, normal breath sounds, no respiratory distress, no accessory muscle use Cardiovascular: regular rate, rhythm, no murmur Abdomen/GI: normal bowel sounds, soft, + pertinent finding (periumbilical tenderness. + ileostomy with liquid output. ) Back: no CVA tenderness, + pertinent finding (+ lumbar paraspinal tenderness bilaterally ) Extremities/Musculoskelatal: no calf tenderness, no pedal edema Neurologic/Psych: alert, normal mood/affect, oriented x 3 Skin: normal color, warm/dry, + pertinent finding (scattered ecchymosis on bilat LE) Hospital Course ABDOMINAL PAIN /NO EVIDENCE OF BOWEL OBSTRUCTION Hx Crohn's disease with dysplasia s/p total proctocolectomy with end ileostomy ( [facility] in 09/2015), appendectomy, hysterectomy, and multiple laparoscopies Presents with abdominal pain, increased liquid output from ileostomy CT abdomen- Moderate distention of the stomach and duodenum with focal area of transitioned collapsed bowel of the proximal jejunum noted with associated swirling of the mesentery within the right midabdomen suggesting internal hernia causing associated high-grade obstruction. No pneumoperitoneum or pneumatosis. Prior colectomy with right lower quadrant ileostomy. appreciate input form surgery and GI small bowel follow through shows passage of contrast in colon -no evidence of obstruction diet advanced tolerating well no further intervention needed CROHN'S DISEASE cont Entocort 9 mg daily appreciate input from GI no further intervention /images needed UTI urine culture E Coli started on Rocephin Hx frequent UTI's (prior cultures show E. coli and Klebsiella with some resistance, however + sensitivity to ceftriaxone) appreciate Consult from infectious disease completed IV Rocephin for X3 days -( day # 3 ) repeat urine culture -no growth THROMBOCYTOPENIA chronic Platelets are 94; no sign of bleeding Follows with Dr. Arredondo for hematology CHRONIC PAIN/MIGRAINE HEADACHE On chronic morphine sulfate IR 30 mg TID PRN [place]ified [place] drug [place] Hold narcotics for now to prevent slowing abdominal transition time pt is counselled ordered for IV Tylenol PRN for headache added Topamax ( pt's home medication ) ASTHMA Not in acute exacerbation Continue home inhaler DEPRESSION/ ANXIETY Continue home medications FULL CODE DISPOSITION Discharge home today Total time spent on discharge = 35 mins This includes examination of the patient, discharge planning, medication reconciliation, and communication with other providers. Discharge Instructions DI: Medical v4 Discharge Instructions Date of Service Mar 31, 2017. Admission Reason for Admission: Abdominal Pain Discharge Discharge Diagnosis / Problem: ABDOMINAL PAIN /HX OF CROHN;S DISEASE /UTI Discharge Goals Goal(s): Improve disease control, Diagnostic testing, Therapeutic intervention Activity Recommendations Activity Limitations: resume your previous activity . Instructions / Follow-Up Instructions / Follow-Up HOSPITAL FOLLOW UP WITH FAMILY PHYSICIAN IN A WEEK Current Hospital Diet Patient's current hospital diet: Regular Diet Discharge Diet Recommended Diet: Regular Diet Pending Studies Studies pending at discharge: no Medical Emergencies . Who to Call and When: Medical Emergencies: If at any time you feel your situation is an emergency, please call 911 immediately. . Non-Emergent Contact Non-Emergency issues call your: Primary Care Provider . . "Provider Documentation" section prepared by Geraldine Tobias. . VTE Core Measure Inpt VTE Proph given/why not?: SCD's
[2017-04-01 20:15] VITALS: BP 104/73; PULSE 81; TEMP 36.4; O2SAT 95
[2017-04-16] MEDS ORDERED: PENT100C6 PO (01:35)
[2017-04-16] MEDS ORDERED: MONT1TAB3 PO (01:36)
[2017-04-16] MEDS ORDERED: TOPI100T20 PO (01:38)
[2017-04-16] MEDS ORDERED: BUDE3CAP14 PO (13:05)
[2017-04-16] MEDS ORDERED: LORA-741 PO (14:00)
[2017-04-16] MEDS ORDERED: FLUO40CA8 PO (16:58)
[2017-04-16] MEDS ORDERED: CLR10 PO (16:58)
[2017-04-16] MEDS ORDERED: FLUT1SPR12 NAE (18:48)
[2017-04-16] MEDS ORDERED: BACL1TAB PO (18:52)
[2017-04-16] MEDS ORDERED: ACETTAB14 PO (18:52)
[2017-04-16] MEDS ORDERED: MORP15TA PO (20:26)
[2017-04-16] MEDS ORDERED: PROC1TAB5 PO (20:26)
[2017-04-16] MEDS ORDERED: FLUO20CA34 PO (20:26)
[2017-04-16] MEDS ORDERED: PANT1TAB48 PO (20:26)
[2017-04-16] MEDS ORDERED: LEVA45AE INH (20:30)
[2017-04-19] MEDS ORDERED: DFL100 PO (17:19)
[2017-04-19] MEDS ORDERED: RCPAV1 IV (17:19)
== END 2017-04-01 20:31 | disposition home or self-care (01) | DRG 392 ==
LOC: C.EDB 09:27 → C.MSN 16:00 → CANRESERV 16:11 → ENRESERV 16:11
PROVIDERS: ADMIT Hospitalist; ATTEND Hospitalist
DX: R10.9 Unspecified abdominal pain (principal); N39.0 Urinary tract infection, site not specified; K50.90 Crohn's disease, unspecified, without complications; A49.8 Other bacterial infections of unspecified site; F41.9 Anxiety disorder, unspecified; G89.29 Other chronic pain; M79.7 Fibromyalgia; J45.909 Unspecified asthma, uncomplicated; I73.00 Raynaud's syndrome without gangrene; E86.0 Dehydration; D69.6 Thrombocytopenia, unspecified; Z79.899 Other long term (current) drug therapy; Z93.2 Ileostomy status; Z90.710 Acquired absence of both cervix and uterus; Z82.49 Family history of ischemic heart disease and other diseases of the circulatory system; Z80.9 Family history of malignant neoplasm, unspecified; Z81.8 Family history of other mental and behavioral disorders; Z83.3 Family history of diabetes mellitus; Z83.79 Family history of other diseases of the digestive system

== ENCOUNTER → 2017-04-12 | Outpatient (CLI) | payer BC, OTHER ==
[~2017-04-12] MED LIST changes: +ACETTAB14 PO; +BACL1TAB PO; +BUDE3CAP14 PO; +CELE400C PO; +CLR10 PO; +DFL100 PO; +FLUO20CA34 PO; +FLUO40CA8 PO; +FLUT1SPR12 NAE; +LDDP5 EX; +LEVA45AE INH; +LORA-741 PO; +MONT1TAB3 PO; +MORP15TA PO; +PANT1TAB48 PO; +PENT100C6 PO; +PHEN-876 PO; +PROC1TAB5 PO; +RCPAV1 IV; +TOPI100T20 PO
== END | disposition home or self-care (01) ==
LOC: C.LAB 15:36
PROVIDERS: ATTEND Internal Medicine Hematology & Oncology
DX: D69.6 Thrombocytopenia, unspecified (principal)

== ENCOUNTER 2017-04-16 20:51 | Observation (INO) | payer BC, OTHER ==
[~2017-04-16] VITALS: Ht 172.7 cm; Wt 50.4 kg
[~2017-04-16 20:51] MED LIST changes: -CELE400C PO; -DFL100 PO; -PHEN-876 PO; -RCPAV1 IV
[2017-04-16 21:00] VITALS: Ht 172.7 cm; Wt 50.4 kg
[2017-04-16] MEDS ORDERED: PHEN-876 PO (21:23)
[2017-04-16] MEDS ORDERED: CELE400C PO (21:23)
[2017-04-16] MEDS ORDERED: SODIUM CHLORIDE 0.9% 1000ML 1,000 ML IV ONE (21:31)
[2017-04-16] MEDS ORDERED: SODIUM CHLORIDE 0.9% 1000ML 1,000 ML IV STA (21:31)
[2017-04-16] MEDS ORDERED: MoRPHine SULFATE 4 MG/ML 1 ML CARP\\VIAL IV STA ×2 (21:31→23:28)
[2017-04-16 21:45] LABS: URINE APPEARANCE CLOUDY (CLEAR); URINE BILIRUBIN NEG (NEG); URINE COLOR YELLOW; URINE NITRITE POS (NEG); URINE PH 5.5 (4.5-7.5); URINE SPECIFIC GRAVITY 1.021 (1.000-1.030); UROBILINOGEN NEG (NEG)
[2017-04-16 22:03] LABS: HEMATOCRIT 38.1 % (37-47); MEAN CELL VOLUME 84.3 fL (80-100); MEAN CORPUSCULAR HEMOGLOBIN 29.4 pg (25-34); MEAN CORPUSCULAR HGB CONC 34.9 g/dl (32-36); RED BLOOD COUNT 4.52 M/uL (4.2-5.4); WHITE BLOOD COUNT 4.36 K/uL (4.8-10.8)
[2017-04-16 22:06] LABS: MANUAL MICROSCOPIC REQUIRED? NO; REVIEW REQ? NO
[2017-04-16 22:21] LABS: BUN/CREATININE RATIO 13.5 (10-20); CALCIUM 9.1 mg/dl (8.5-10.1); CREATININE 1.2 mg/dl (0.60-1.20); POTASSIUM 3.5 mmol/L (3.5-5.1)
[2017-04-16] MEDS ORDERED: METO-157 PO (22:26)
[2017-04-16 22:29] LABS: PREG INTERNAL NEGATIVE QC NEG CLEAR BACKGROUND; PREG INTERNAL POSITIVE QC POS CONTROL LINE
[2017-04-16 22:40] LABS: COMPLETE YES; EOS % 0.7 %; IG% 0.2 %; LYMPH % 36.2 %; LYMPH ABS # 1.58 K/uL (1.2-3.4); MEAN PLATELET VOLUME 9.2 fL (7.4-10.4); MONO % 7.3 %; NEUT % 55.6 %; PLATELET COUNT 61 K/uL (130-400)
[2017-04-16] MEDS ORDERED: CEFTRIAXONE SOD INJ 1 GM ADDVIAL IV STA (23:28)
--- NOTE | 2017-04-17 00:41 | EMERGENCY ROOM VISIT NOTE ---
History Report prepared by Carlo: Brittani Brantley Under the Supervision of: Dr. Carlos Fitzgerald M.D. First contact with patient: 21:20 Chief Complaint: URINARY SYMPTOMS Stated Complaint: UTI, DEHYDRATED History of Present Illness The patient is a 36 year old female who presents to the Emergency Room with complaints of worsening urinary symptoms starting 2 weeks ago. The patient states that she was in the hospital 2 weeks ago for a bowel obstruction and UTI. She reports that she chronically gets UTIs and that she has been on multiple antibiotics for them, but they tend not to work. She reports that they gave her Rocephin for 3 days while here. She states that they were going to put a PICC line in, but decided not to. She reports that she feels that her UTI symptoms from the original visit have not gotten better. She states that she went to her family doctor who put her on Macrobid, but states her landscape contractor told her that Macrobid is one of the medication that cause her to become neutropenic. The patient complains of abdominal pain, back pain, chills, muscle cramps, and nausea. The patient denies hematuria, fever, cough, shortness of breath, and vomiting. The patient notes that she has an ileostomy in place due to Crohn's that turned to cancer. She states that she had part of her colon removed. She denies having C-Diff since then. She notes her output has been diarrhea like which is unusual. Source of History: patient, spouse/significant other Onset: 2 weeks ago Position: other (global) Quality: other (global) Timing: worsening Associated Symptoms: + chills, + nausea, + abdominal pain, + back pain, + diarrhea, No fevers, No cough, No SOB, No vomiting Note: The patient complains of muscle cramps. The patient denies hematuria. Review of Systems See HPI for pertinent positives & negatives. A total of 10 systems reviewed and were otherwise negative. Past Medical & Surgical Medical Problems: (1) Anxiety (2) Colon dysplasia (3) Crohn's colitis (4) Depression (5) Endometriosis (6) Fibromyalgia (7) History of iron deficiency anemia (8) Hypotension (9) Ileostomy in place (10) Interstitial cystitis (11) Migraine (12) Raynauds disease (13) SBO (small bowel obstruction) (14) Thrombocytopenia Surgical Problems: (1) H/O colonoscopy (2) H/O esophagogastroduodenoscopy (3) H/O laparoscopy (4) H/O total colectomy (5) S/P appendectomy (6) S/P hysterectomy Old medical records were reviewed. Nurse's notes were reviewed and I agree with. Family History Diabetes mellitus FH: depression FH: heart disease FHx: cancer FHx: gallbladder disease Hypertension Social History Smoking Status: Never Smoker Alcohol Use: occasionally Drug Use: none Marital Status: Occupation Status: disabled Current/Historical Medications Scheduled Budesonide (Entocort Ec), 9 MG PO DAILY Celecoxib (Celebrex), 400 MG PO BID Fluoxetine (Prozac), 40 MG PO HS Fluoxetine Hcl (Prozac), 20 MG PO HS Fluticasone Propionate (Nasal) (Flonase Allergy Relief Ch), 2 SPRAYS ROSARIO DAILY Loratadine (Claritin), 10 MG PO DAILY Montelukast Sodium (Singulair), 10 MG PO DAILY Pantoprazole (Protonix), 40 MG PO BID Pentosan Polysulfate Sodium (Elmiron), 300 MG PO BID Topiramate (Topamax), 100 MG PO BID Scheduled PRN Acetaminophen-Caffeine (Excedrin Tension Headache), 1 TAB PO UD PRN for Headache Baclofen (Lioresal), 10 MG PO TID PRN for Hiccups Diphenhy/Alum/Mag/Sucralfa (Magic Swizzle - Diphenhy/Alum/Mag/Sucralfa), 1 TSP PO Q4H PRN for UD Levalbuterol Tartrate (Levalbuterol Tartrate Hfa), 2 PUFFS INH Q4H PRN for Wheezing Lorazepam (Ativan), 0.5 MG PO TID PRN for Anxiety Metoclopramide Hcl (Reglan), 5 MG PO Q6H PRN for Nausea-Hiccups Morphine Sulfate (Morphine Sulfate Ir), 30 MG PO Q8 PRN for Pain Phenazopyridine HCl (Pyridium), 200 MG PO TID PRN for Bladder pain Prochlorperazine Maleate (Compazine), 10 MG PO TID PRN for Nausea Allergies Coded Allergies: Clarithromycin (Verified Allergy, Severe, breathing problems, 03/07/17) Hydromorphone (Verified Allergy, Intermediate, RASH, 03/07/17) pt sasy she is allergic Ondansetron (Verified Allergy, Intermediate, itching, 03/07/17) Peanut (Verified Allergy, Intermediate, Rash and itchiness, 03/07/17) Hydroxyzine (Verified Allergy, Mild, itching, 03/07/17) Adhesives (Verified Allergy, Unknown, itching, swelling, 03/07/17) Albuterol (Verified Allergy, Unknown, rash, 03/07/17) BEE STING (Unverified Allergy, Unknown, anaphylaxis, 03/07/17) Ketorolac Tromethamine (Unverified Allergy, Unknown, unknown, 03/07/17) Latex (Verified Allergy, Unknown, itching, swelling, 03/07/17) Oxycodone (Verified Allergy, Unknown, itching, 03/07/17) Barium Sulfate (Verified Adverse Reaction, Unknown, diarrhea, 03/07/17) Lobster (Verified Adverse Reaction, Unknown, nausea, diarrhea, 03/07/17) Pregabalin (Verified Adverse Reaction, Unknown, delusions, 03/07/17) Uncoded Allergies: SPLENDA (Allergy, Unknown, Nausea/Vomiting, 09/26/16) Physical Exam Vital Signs Date Time Temp Pulse Resp B/P (MAP) Pulse Ox O2 Delivery O2 Flow Rate FiO2 04/16/17 22:58 68 18 115/71 100 Room Air 04/16/17 21:00 36.8 97 16 128/91 94 Room Air Physical Exam General: Well developed, in no acute distress, breathing comfortably on room air. Normal speech. Chronically ill-appearing slender young female. HEENT: Normal cephalic atraumatic. Pupils are equal round and reactive to light. Extraocular movements are intact. Oropharynx is pink with moist mucous membranes. No swelling of the mouth lips or tongue. Neck: Supple with a midline trachea. No meningeal signs or stiffness, no JVD or bruits. No Stridor. Chest: Clear to auscultation bilaterally. No wheezes or rhonchi. No increased work of breathing. Heart: regular rate and rhythm. Abdomen: Soft nontender, nondistended without rebound guarding or rigidity. Ostomy in right abdomen that has stool in it. Extremities: No cyanosis clubbing or edema. No calf tenderness or assymetry Spine/Back. Non tender to palpation. No CVA tenderness Skin: Good turgor without rashes. Neurologic exam: Cranial nerves two through 12 are intact. Motor and sensation are intact and symmetrical throughout. Medical Decision & Procedures Laboratory Results 04/16/17 21:53 Red Blood Count 4.52, Mean Corpuscular Volume 84.3, Mean Corpuscular Hemoglobin 29.4, Mean Corpuscular Hemoglobin Concent 34.9, Mean Platelet Volume 9.2, Neutrophils (%) (Auto) 55.6, Lymphocytes (%) (Auto) 36.2, Monocytes (%) (Auto) 7.3, Eosinophils (%) (Auto) 0.7, Basophils (%) (Auto) 0.0, Neutrophils # (Auto) 2.42, Lymphocytes # (Auto) 1.58, Monocytes # (Auto) 0.32, Eosinophils # (Auto) 0.03, Basophils # (Auto) 0.00 04/16/17 21:53 Test 04/16/17 21:32 04/16/17 21:53 04/17/17 00:26 Urine Color YELLOW Urine Appearance CLOUDY (CLEAR) Urine pH 5.5 (4.5-7.5) Urine Specific [place] 1.021 (1.000-1.030) Urine Protein NEG (NEG) Urine Glucose (UA) NEG (NEG) Urine Ketones NEG (NEG) Urine Occult Blood NEG (NEG) Urine Nitrite POS (NEG) Urine Bilirubin NEG (NEG) Urine Urobilinogen NEG (NEG) Urine Leukocyte Esterase MODERATE (NEG) Urine WBC (Auto) >30 /hpf (0-5) Urine RBC (Auto) 5-10 /hpf (0-4) Urine Hyaline Casts (Auto) 1-5 /lpf (0-5) Urine Epithelial Cells (Auto) 5-10 /lpf (0-5) Urine Bacteria (Auto) 4+ (NEG) White Blood Count 4.36 K/uL (4.8-10.8) Red Blood Count 4.52 M/uL (4.2-5.4) Hemoglobin 13.3 g/dL (12.0-16.0) Hematocrit 38.1 % (37-47) Mean Corpuscular Volume 84.3 fL (80-100) Mean Corpuscular Hemoglobin 29.4 pg (25-34) Mean Corpuscular Hemoglobin Concent 34.9 g/dl (32-36) Platelet Count 61 K/uL (130-400) Mean Platelet Volume 9.2 fL (7.4-10.4) Neutrophils (%) (Auto) 55.6 % Lymphocytes (%) (Auto) 36.2 % Monocytes (%) (Auto) 7.3 % Eosinophils (%) (Auto) 0.7 % Basophils (%) (Auto) 0.0 % Neutrophils # (Auto) 2.42 K/uL (1.4-6.5) Lymphocytes # (Auto) 1.58 K/uL (1.2-3.4) Monocytes # (Auto) 0.32 K/uL (0.11-0.59) Eosinophils # (Auto) 0.03 K/uL (0-0.5) Basophils # (Auto) 0.00 K/uL (0-0.2) RDW Standard Deviation 45.3 fL (36.4-46.3) RDW Coefficient of Variation 14.7 % (11.5-14.5) Immature Granulocyte % (Auto) 0.2 % Immature Granulocyte # (Auto) 0.01 K/uL (0.00-0.02) Anion Gap 10.0 mmol/L (3-11) Est Creatinine Clear Calc Drug Dose 51.1 ml/min Estimated GFR () 66.9 Estimated GFR (Non- 57.7 BUN/Creatinine Ratio 13.5 (10-20) Calcium Level 9.1 mg/dl (8.5-10.1) Total Bilirubin 0.5 mg/dl (0.2-1) Direct Bilirubin 0.1 mg/dl (0-0.2) Aspartate Amino Transf (AST/SGOT) 30 U/L (15-37) Alanine Aminotransferase (ALT/SGPT) 66 U/L (12-78) Alkaline Phosphatase 85 U/L (45-117) Total Protein 6.7 gm/dl (6.4-8.2) Albumin 3.8 gm/dl (3.4-5.0) Lipase 485 U/L (73-393) Human Chorionic Gonadotropin, Qual NEG (NEG) Laboratory studies as stated above per my review. Medications Administered Medications (Trade) Dose Ordered Sig/Tamar Route Start Time Stop Time Status Last Admin Dose Admin Sodium Chloride 1,000 ml @ 999 mls/hr Q1H1M STAT IV 8/29/17 21:31 04/16/17 22:31 DC 04/16/17 21:31 999 MLS/HR Sodium Chloride 1,000 ml @ 150 mls/hr Q6H40M ONCE IV 04/16/17 21:31 04/17/17 04:10 04/16/17 23:09 150 MLS/HR Morphine Sulfate (MoRPHine SULFATE INJ) 4 mg NOW STAT IV 04/16/17 21:31 04/16/17 21:33 DC 04/16/17 21:31 4 MG Ceftriaxone Sodium (Rocephin Inj) 1 gm NOW STAT IV 04/16/17 23:28 04/16/17 23:29 DC 04/16/17 23:35 1 GM Morphine Sulfate (MoRPHine SULFATE INJ) 4 mg NOW STAT IV 04/16/17 23:28 04/16/17 23:29 DC 04/16/17 23:33 4 MG ED Course 2120: Past medical records reviewed. The patient was evaluated in room A2, and a complete history and physical examination were performed. 1: Ordered Morphine Sulfate 4 mg IV, NSS 1000 ml @ 150 mls/hr IV, NSS 1000 ml @ 999 mls/hr IV. 8: Ordered Morphine Sulfate 4 mg IV, Rocephin Inj 1 gm IV. 2344: Discussed the patient's case with Dr. Miranda. The patient will be evaluated for further management. Medical Decision Differential diagnoses include UTI, electrolyte abnormality, metabolic abnormality, hematologic problem. This patient comes in as described above. She is having lower abdominal pain and urinary symptoms. She has had multiple urinary tract infections and was hospitalized a couple weeks ago and was given IV Rocephin she feels she needs an IV PICC line as a had discussed this before however she was getting better and essentially normal oral meds. Additionally, recently she was supposed to take Macrobid but did not as she was worried it would affect her platelets. IV access established and she was hydrated with IV normal saline. She was given IV morphine 4 mg. This helped her pain. She was given additional IV morphine. She's had no vomiting. She was given Rocephin 1 g IV. Urinalysis does suggest a UTI with a culture pending she has nothing to suggest sepsis. Her platelets are baseline low at 61,000. She has no acute electrode or metabolic abnormalities. She feels she needs to be admitted for IV antibiotics and pain management. I have consulted Dr. Trejo he saw an ER will admit her for these measures. Medication Reconcilliation Current Medication List: was personally reviewed by me Blood Pressure Screening Patient's blood pressure: Normal blood pressure Blood pressure disposition: Did not require urgent referral Consults Time Called: [phone] Consulting Physician: Dr. Miranda Returned Call: [phone] Discussed the patient's case with Dr. Miranda. The patient will be evaluated for further management. Impression Primary Impression: Lower abdominal pain Additional Impressions: UTI (urinary tract infection) Thrombocytopenia Scribe Attestation The scribe's documentation has been prepared under my direction and personally reviewed by me in its entirety. I confirm that the note above accurately reflects all work, treatment, procedures, and medical decision making performed by me. Departure Information Dispostion Being Evaluated By Hospitalist Referrals Xuan Golden .SAUL (PCP) Patient Instructions My [facility] Problem Qualifiers
[2017-04-17 01:12] LABS: MAGNESIUM 1.9 mg/dl (1.8-2.4)
[2017-04-17] MEDS ORDERED: ACETAMINOPHEN IV 650 MG in EMPTY BAG 0 ML IV PRN (01:15)
[2017-04-17] MEDS ORDERED: PROMETHAZINE HCL INJ 12.5 MG in SODIUM CHLORIDE 0.9% 50ML 50 ML IV PRN (01:15)
[2017-04-17] MEDS ORDERED: TRAMADOL HCL 50 MG TAB PO PRN (01:15)
[2017-04-17] MEDS ORDERED: OPTIRAY 320 IV PRN (01:15)
[2017-04-17] MEDS ORDERED: ACETAMINOPHEN 325 MG TAB PO PRN (01:15)
[2017-04-17] MEDS ORDERED: MoRPHine SULFATE IR 15 MG TAB (IMMEDIATE RELEASE) PO PRN (02:00)
[2017-04-17] MEDS ORDERED: LORAZEPAM 0.5 MG TAB PO PRN (03:30)
[2017-04-17] MEDS ORDERED: IV FLUIDS COMPLETED PRN (03:30)
[2017-04-17] MEDS ORDERED: BACLOFEN 10 MG TAB PO PRN (03:30)
[2017-04-17] MEDS ORDERED: SUMATRIPTAN SUCCINATE 50 MG TAB PO PRN (03:30)
[2017-04-17] MEDS ORDERED: LACTATED RINGER'S 1000ML 1,000 ML IV ONE (04:00)
[2017-04-17 04:39] VITALS: BP 112/74; PULSE 59; TEMP 36.4; O2SAT 98
--- NOTE | 2017-04-17 05:57 | HISTORY & PHYSICAL EXAMINATION ---
DATE OF ADMISSION: 04/17/2017 PRIMARY CARE DOCTOR: Dr. Bao Farrell. CHIEF COMPLAINT: Abdominal pain, UTI. HISTORY OF PRESENT ILLNESS: Hx obtained from patient and records. Medical history is significant for fibromyalgia, migraine headache, history of Crohn disease, colorectal cancer status post surgery 2016, endometriosis status post hysterectomy, hx cdiff status post fecal transplantation, chronic thrombocytopenia, recurrent UTIs (hx interstitial cystitis) Recent confinement 2 weeks ago for UTI symptoms. Urine cultures grew quinolone resistant E. coli. Patient completed IV ceftriaxone course. Patient seen by ID, A-port was not felt necessary at that time. Since discharge, worsening hypogastric pain across her belly going to her flank with nausea, one episode of emesis; loose ileostomy output, no chest pain, no shortness of breath, worsening migraine headaches, now twice weekly in the last month. No fever, no chills. Patient's PCP prescribed Macrodantin for possible UTI. Patient did not want to take it due to concerns about thrombocytopenia. MEDICAL HISTORY: As above. SURGERIES: She has had bowel surgery, hysterectomy and gynecologic procedures. HOME MEDICATIONS: Include Protonix, Compazine, Topamax, Flonase, Ativan, levalbuterol, Claritin, Reglan, Singulair, morphine sulfate, Excedrin, baclofen, Entocort, Celebrex, and Prozac. ALLERGIES: ADHESIVE, BEE STINGS, LOBSTER, BARIUM SULFATE, HYDROMORPHONE, HYDROXYZINE, OXYCODONE, ALBUTEROL, ZOFRAN, CLARITIN, LATEX, PREGABALIN, TORADOL AND PEANUTS. FAMILY HISTORY: Heart disease, gallbladder disease. PERSONAL AND SOCIAL HISTORY: Nonsmoker, no chronic intake of alcoholic beverages. Disabled. REVIEW OF SYSTEMS: As per HPI, all other ROS negative. PHYSICAL EXAMINATION: VITAL SIGNS: Blood pressure was noted to be BP 110/70 pulse 67, RR 08, temperature 36.8, sats 94% on room air. GENERAL: Noted to be comfortable, no respiratory distress, looks older than stated age. SKIN: Normal color. HEENT: [place] palpebral conjunctivae. Dry mucosa. NECK: No JVD. Supple. CHEST: Clear to auscultation. HEART: Regular rate and rhythm. ABDOMEN: Healed incisional scars, hypogastric tenderness. Ileostomy noted. EXTREMITIES: No edema. No tenderness. NEUROLOGIC: No gross focality. LABS: Hemoglobin was noted to be 13.8, white cell count 10 platelets count 61. Sodium 141 potassium 3.5, chloride 112, CO2 19, BUN creatinine 1.2, glucose noted to be 88. UA, nitrite positive ASSESSMENT: 1. Recurrent urinary tract infections hx interstitial cystitis No sepsis 2. Worsening abdominal pain, rule out bowel obstruction/kidney stone history of bowel surgery for colon cancer, Crohn disease 3. worsening migraine sx ro ICH 4. Fibromyalgia as per records 5. chronic thrombocytopenia. PLAN: OBS GMF ff urine cultures. IV Ceftriaxone. ID ffup consult as per px request RE recurrent UTIs. (Patient previously seen by Dr. Rosario.) CT abd pelvis RE worsening belly/flank pain CT head worsening migraine headaches, rule out bleed, hx thrombocytopenia. Further management pending workup results. Judicious narcotic use. DVT prophylaxis. SCDs. RE Thrombocytopenia. Full code. MTDD
--- NOTE | 2017-04-17 06:34 | DIAGNOSTIC IMAGING REPORT ---
HEAD WITHOUT CONTRAST (CT) CLINICAL HISTORY: 36 years-old Female with worsening sharma. TECHNIQUE: Multiple axial CT images of the head were obtained without contrast. A dose lowering technique was utilized adhering to the principles of ALARA. CT DOSE: 884.66 mGy.cm COMPARISON: Brain MRI 03/20/2016. FINDINGS: No acute intracranial hemorrhage, midline shift, mass, large territorial ischemia or abnormal extra-axial collection. The calvarium is intact. Moderate right and small left mastoid effusions are present. There is evidence of prior bilateral maxillary antrostomy. Paranasal sinuses are generally clear. Soft tissues are unremarkable. The orbits are symmetric. IMPRESSION: 1. No acute intracranial abnormality. 2. Redemonstration of bilateral mastoid effusions. 3. Prior bilateral maxillary antrostomy. The above report was generated using voice recognition software. It may contain grammatical, syntax or spelling errors. Electronically signed by: Lucian Martinez M.D. 04/17/2017 6:32 AM Dictated Date/Time: 04/17/2017 6:30 AM
[2017-04-17] MEDS: PANTOprazole SOD 40 MG TAB PO SCH ×2 (07:33→20:25)
[2017-04-17] MEDS: PENTOSAN POLYSULFATE SODIUM 100 MG CAP PO SCH ×2 (07:33→20:25)
[2017-04-17] MEDS: FLUTICASONE PROPIONATE NA SPR 16 GM BTL NAE SCH (07:34)
[2017-04-17] MEDS: LORATADINE 10 MG TAB PO SCH (07:34)
[2017-04-17] MEDS: TOPIRAMATE 100 MG TAB PO SCH ×2 (07:35→20:25)
[2017-04-17] MEDS: MONTELUKAST SOD 10 MG TAB PO SCH (07:35)
--- NOTE | 2017-04-17 07:36 | DIAGNOSTIC IMAGING REPORT ---
ABD/PELVIS IV CONTRAST ONLY HISTORY: 36 years-old Female acute abdominal pain. Prior colectomy with right lower quadrant ileostomy COMPARISON: Upper GI 03/29/2017, CT abdomen and pelvis 03/28/2017 and 12/26/2016. TECHNIQUE: Multiple axial CT images of the abdomen and pelvis were obtained following the intravenous administration of 93 mL Optiray 320. No oral contrast was administered. A dose lowering technique was used consistent with the principals of LUZ MARIA. FINDINGS: Small calcified granuloma is present in the left lung base with minimal subsegmental bibasilar atelectasis. There is no pneumoperitoneum. The imaged inferior cardiac chambers are unremarkable. The liver, pancreas and adrenal glands are unremarkable. Spleen is enlarged measuring up to 14 cm in length. There is a 5 mm echogenic structure along the dependent gallbladder lumen suspicious for cholelithiasis. No CT evidence of acute cholecystitis. The kidneys, ureters and urinary bladder are unremarkable. Prior hysterectomy. There is trace free fluid within the pelvis which is nonspecific and may be physiologic. The abdominal aorta is normal in course and caliber. There is no bulky retroperitoneal adenopathy identified. On today's study, the duodenum crosses to the left of midline with jejunum seen within the left mid abdomen. There is mild dilatation and air-fluid leveling of the proximal duodenum which is likely physiologic. The previously described swirling and dilation of small bowel within the right abdomen with findings suggesting malrotation are no longer identified. This suggests mobile bowel with ligamentous laxity which may be congenital or postsurgical in nature. There is no evidence of bowel obstruction. Prior colectomy with right lower quadrant ileostomy. The soft tissues are unremarkable. Sclerosis involve the bilateral sacroiliac joints. The bones are mildly demineralized. There is convex right curvature of the upper lumbar spine. IMPRESSION: 1. Mild nonspecific dilation of the proximal duodenum persists, however on comparison study dated 03/28/2017 the duodenum did not cross to the left of midline and on today's study it does with jejunum seen within the left abdomen. These findings suggest ligamentous laxity or wandering duodenum which may be postsurgical or congenital. 2. No additional dilated loops of bowel are seen to suggest obstruction. No pneumoperitoneum. 3. Prior colectomy with right lower quadrant ileostomy. 4. Splenomegaly. 5. Probable cholelithiasis. The above report was generated using voice recognition software. It may contain grammatical, syntax or spelling errors. Electronically signed by: Lucian Martinez M.D. 04/17/2017 7:34 AM Dictated Date/Time: 04/17/2017 7:04 AM
[2017-04-17] MEDS: PHENAZOPYRIDINE HCL 200 MG TAB PO PRN (07:57)
[2017-04-17] MEDS ORDERED: CeleBREX 200 MG CAP PO SCH (08:00)
[2017-04-17 08:08] VITALS: BP 114/74; PULSE 98; TEMP 36.7; O2SAT 99
[2017-04-17 08:12] LABS: HEMATOCRIT 33.8 % (37-47); MEAN CELL VOLUME 83.7 fL (80-100); MEAN CORPUSCULAR HEMOGLOBIN 27.5 pg (25-34); MEAN CORPUSCULAR HGB CONC 32.8 g/dl (32-36); RED BLOOD COUNT 4.04 M/uL (4.2-5.4); WHITE BLOOD COUNT 2.54 K/uL (4.8-10.8)
[2017-04-17 08:15] LABS: PLATELET COUNT 49 K/uL (130-400)
[2017-04-17 08:41] LABS: BASO % 0.4 %; BASO ABS # 0.01 K/uL (0-0.2); COMPLETE YES; EOS % 1.2 %; IG% 0.4 %; LYMPH % 48.8 %; LYMPH ABS # 1.24 K/uL (1.2-3.4); MONO % 8.7 %; NEUT % 40.5 %
[2017-04-17 08:42] LABS: BUN/CREATININE RATIO 12.6 (10-20); CALCIUM 8.3 mg/dl (8.5-10.1); CREATININE 0.9 mg/dl (0.60-1.20); POTASSIUM 3.5 mmol/L (3.5-5.1)
[2017-04-17] MEDS ORDERED: NURSING VERBAL MED ORDER ONE ×3 (13:45→17:00)
--- NOTE | 2017-04-17 14:10 | Progress Note ---
Progress Note Date of Service Apr 17, 2017. Progress Note ID Consult Dictated #[id number] A/P: 1. UTI -Continue ctx for now, follow urine culture results -Thank you
--- NOTE | 2017-04-17 14:33 | INFECT. DISEASE CONSULTATION ---
DATE OF CONSULTATION: 04/17/2017 REQUESTING PHYSICIAN: Dr. Miranda. HISTORY OF PRESENT ILLNESS: This is a 36-year-old female who was admitted from home secondary to worsening abdominal pain. She was recently seen in the hospital by infectious diseases for urinary tract infection. She was treated with a course of IV Rocephin. She states she did not have significant improvement in her symptoms and is readmitted for worsening abdominal pain. She did have a urinalysis done in the Emergency Room, which showed greater than 30 WBCs and 4+ bacteria. Her urine culture preliminarily is growing gram negative rods, which have yet to be identified. She also had a C. diff obtained on this admission, which is negative. She is pancytopenic and she states this is chronic. Her white blood cell count this morning is 2.5. She has been afebrile since admission. Her lipase was elevated at 485, but has improved to 114 today. She did have a CAT scan of the abdomen and pelvis as part of her initial workup, which was unremarkable. Her mother is present with her. She states she has been eating at home, but feels she has been dehydrated and she is having muscle cramping. She describes her pain as diffuse, but mostly confined to the epigastric area and also the suprapubic area. She is currently on IV Rocephin and she is tolerating this well. She is requesting a PICC line. All remaining review of systems is reviewed and unremarkable. PAST MEDICAL HISTORY: Significant for fibromyalgia, migraines, Crohn disease, colorectal cancer, endometriosis, thrombocytopenia and cystitis. PAST SURGICAL HISTORY: Significant for colectomy and hysterectomy. ALLERGIES: INCLUDE BARIUM, DILAUDID, HYDROXYZINE, OXYCODONE, ALBUTEROL, ZOFRAN, CLARITIN, LATEX, AND TORADOL. FAMILY HISTORY: Noncontributory. SOCIAL HISTORY: Negative for tobacco use, alcohol use or drug use. CURRENT MEDICATIONS: Include Rocephin, Prozac, dexamethasone, Celebrex, Flonase, Claritin, Singulair, Protonix, Topamax, baclofen, Ativan, Pyridium, Imitrex, morphine, tramadol, Tylenol, and acetaminophen. PHYSICAL EXAMINATION: VITAL SIGNS: She is afebrile, pulse 98, respiratory rate 16, blood pressure 114/74, and oxygen saturation is 99% on room air. GENERAL: She is awake, alert and oriented x3. She is in no acute distress. HEENT: Mucous membranes are dry. Dentition is poor. Extraocular muscles are intact. HEART: Regular. LUNGS: Clear bilaterally. ABDOMEN: Nondistended. There is tenderness to the epigastric and suprapubic area. Ileostomy is intact. EXTREMITIES: There is no lower extremity edema. SKIN: Without rash. LABORATORY STUDIES: CBC today reveals a white blood cell count of 2.5, hemoglobin 11.1, and platelets are 49. Chemistry panel reveals a sodium of 143, potassium 3.5, chloride 114, bicarbonate 22, BUN 11, creatinine 0.9 and glucose is 66. Urinalysis is as above with greater than 30 WBCs and 4+ bacteria. Gram negative rods are growing from the urine culture, which have yet to be identified. A C. diff specimen from yesterday is negative. CAT scan of the abdomen and pelvis is reviewed as above. ASSESSMENT AND PLAN: Urinary tract infection. At this time, she will remain on IV antibiotics. I do agree that she would have absorption issues with oral antibiotics and she should be treated with a course of intravenous antibiotics. Should she have any fevers, blood cultures can be obtained. Further recommendations will depend on final urine culture results. Thank you for this consultation.
[2017-04-17] MEDS ORDERED: DEXAMETHASONE CONC SOLN 3.75 MG, NYSTATIN SUSP 30 ML, DiphenhydrAMINE HCL SYRUP 300 MG,... PO ONE ×5 (14:45)
[2017-04-17] MEDS: BOOST BREEZE NUTRITION DRINK 1 BOX PO SCH ×3 (14:45→23:08)
[2017-04-17 15:59] VITALS: BP 94/62; PULSE 80; TEMP 36.8; O2SAT 96
[2017-04-17] MEDS ORDERED: LIDOCAINE HCL 2% VISCOUS SOLN 60 ML, DiphenhydrAMINE HCL SYRUP 150 MG, ALUMINUM/MAGNESI... MT PRN ×4 (17:15)
[2017-04-17] MEDS: MoRPHine SULFATE 4 MG/ML 1 ML CARP\\VIAL IV PRN ×2 (18:12→22:54)
--- NOTE | 2017-04-17 18:23 | Progress Note ---
Medicine Progress Note Date & Time of Visit: Apr 17, 2017 at 18:05. Subjective Pt was seen and examined Lying in bed complaint of abdominal pain Pain said that her pain is about 9 out 10 she said that the oral pain med does not help she would like her pain med to be changed to oral denies any chest pain, palpitation, dizziness and SOB Objective Last 8 Hrs Date Time Temp Pulse Resp B/P (MAP) Pulse Ox O2 Delivery O2 Flow Rate FiO2 04/17/17 15:59 36.8 80 16 94/62 (73) 96 Room Air Physical Exam: General-No acute distress Head- atraumatic Eyes- PERRL, EOMI ENT- oropharynx clear Neck- supple, no JVD Lungs- clear to auscultation Heart- regular rhythm; no murmur Abdomen- +tender, +ileostomy bag, +Nondistended Extremities- no calf tenderness Neuro- alert, oriented x 3; PERRL, EOMI; Skin- warm & dry Laboratory Results: Last 24 Hours Test 04/16/17 21:32 04/16/17 21:53 04/17/17 07:33 Urine Color YELLOW Urine Appearance CLOUDY Urine pH 5.5 Urine Specific [place] 1.021 Urine Protein NEG Urine Glucose (UA) NEG Urine Ketones NEG Urine Occult Blood NEG Urine Nitrite POS Urine Bilirubin NEG Urine Urobilinogen NEG Urine Leukocyte Esterase MODERATE Urine WBC (Auto) >30 /hpf Urine RBC (Auto) 5-10 /hpf Urine Hyaline Casts (Auto) 1-5 /lpf Urine Epithelial Cells (Auto) 5-10 /lpf Urine Bacteria (Auto) 4+ White Blood Count 4.36 K/uL 2.54 K/uL Red Blood Count 4.52 M/uL 4.04 M/uL Hemoglobin 13.3 g/dL 11.1 g/dL Hematocrit 38.1 % 33.8 % Mean Corpuscular Volume 84.3 fL 83.7 fL Mean Corpuscular Hemoglobin 29.4 pg 27.5 pg Mean Corpuscular Hemoglobin Concent 34.9 g/dl 32.8 g/dl Platelet Count 61 K/uL 49 K/uL Mean Platelet Volume 9.2 fL 9.0 fL Neutrophils (%) (Auto) 55.6 % 40.5 % Lymphocytes (%) (Auto) 36.2 % 48.8 % Monocytes (%) (Auto) 7.3 % 8.7 % Eosinophils (%) (Auto) 0.7 % 1.2 % Basophils (%) (Auto) 0.0 % 0.4 % Neutrophils # (Auto) 2.42 K/uL 1.03 K/uL Lymphocytes # (Auto) 1.58 K/uL 1.24 K/uL Monocytes # (Auto) 0.32 K/uL 0.22 K/uL Eosinophils # (Auto) 0.03 K/uL 0.03 K/uL Basophils # (Auto) 0.00 K/uL 0.01 K/uL RDW Standard Deviation 45.3 fL 44.9 fL RDW Coefficient of Variation 14.7 % 14.6 % Immature Granulocyte % (Auto) 0.2 % 0.4 % Immature Granulocyte # (Auto) 0.01 K/uL 0.01 K/uL Activated Partial Thromboplast Time 26.8 SECONDS Partial Thromboplastin Ratio 1.0 Sodium Level 141 mmol/L 143 mmol/L Potassium Level 3.5 mmol/L 3.5 mmol/L Chloride Level 112 mmol/L 114 mmol/L Carbon Dioxide Level 19 mmol/L 22 mmol/L Anion Gap 10.0 mmol/L 7.0 mmol/L Blood Urea Nitrogen 16 mg/dl 11 mg/dl Creatinine 1.20 mg/dl 0.90 mg/dl Est Creatinine Clear Calc Drug Dose 51.1 ml/min 68.1 ml/min Estimated GFR () 66.9 94.7 Estimated GFR (Non- 57.7 81.7 BUN/Creatinine Ratio 13.5 12.6 Random Glucose 88 mg/dl 66 mg/dl Calcium Level 9.1 mg/dl 8.3 mg/dl Magnesium Level 1.9 mg/dl Total Bilirubin 0.5 mg/dl Direct Bilirubin 0.1 mg/dl Aspartate Amino Transf (AST/SGOT) 30 U/L Alanine Aminotransferase (ALT/SGPT) 66 U/L Alkaline Phosphatase 85 U/L Total Protein 6.7 gm/dl Albumin 3.8 gm/dl Lipase 485 U/L 214 U/L Human Chorionic Gonadotropin, Qual NEG Date/Time Source Procedure Growth Status 04/16/17 22:56 Stool WBC Smear - Final Resulted 04/16/17 22:56 Stool Shiga Toxin Test Pending Resulted 04/16/17 22:56 Stool Stool Culture Pending Resulted 04/16/17 22:56 Stool C.difficile Toxin B Gene (PCR) - Final No C. difficile toxin B gene detected Complete 04/16/17 21:32 Urine , Clean Catch Urine Culture - Preliminary Gram Negative Bacilli Resulted Assessment & Plan Chronic Abdominal pain Hx of Crohn dx Continue IV morphine for pain Tolerated regular diet CT abd/pelvis showed mild nonspecific dilation of the proximal duodenum persists , however on comparison study dated 03/28/2017 the duodenum did not cross to the left of midline and on today's study it does with jejunum seen within the left abdomen. These findings suggest ligamentous laxity or wandering duodenum which may be postsurgical or congenital. 2. No additional dilated loops of bowel are seen to suggest obstruction. No pneumoperitoneum. Recurrent urinary tract infections Urine cx grew gram negative bacilli Continue IV Rocephin Urology was notified, no intervention management per urologist ID on board Chronic Diarrhea Stool for Cdiff negative Continue IVF Tolerated regular diet Thrombocytopenia Platelet 49 today will watch for sign of bleeding Will notify hem/onc Dr. Arredondo Continue monitor CBC No NSAIDs Worsening migraine sx CT head negative improved Chronic pain syndrome On chronic narcotic Continue IV morphine DVT px on SCDs due to thrombocytopenia CODE STATUS FULL CODE Consultants: ID Current Inpatient Medications: Current Inpatient Medications Medications (Trade) Dose Ordered Sig/Tamar Route Start Time Stop Time Status Last Admin Dose Admin Tramadol HCl (Ultram Tab) not relieved by tylenol @ Q6H PRN PO 04/17/17 01:15 05/17/17 01:14 Acetaminophen (Tylenol Tab) 650 mg Q6H PRN PO 04/17/17 01:15 05/17/17 01:14 Acetaminophen 650 mg/Empty Bag 65 ml @ 260 mls/hr Q6H PRN IV 04/17/17 01:15 05/17/17 01:14 04/17/17 08:45 260 MLS/HR Promethazine HCl 12.5 mg/Sodium Chloride 50.5 ml @ 204 mls/hr Q6H PRN IV 04/17/17 01:15 05/17/17 01:14 Ioversol (Optiray 320) 100 ml UD PRN IV 04/17/17 01:15 04/21/17 01:14 Morphine Sulfate (MoRPHine SULFATE IR TAB) 30 mg TID PRN PO 04/17/17 02:00 05/01/17 01:59 Future Hold 04/17/17 09:18 30 MG Miscellaneous (Iv Fluids Completed) 1 ea PRN PRN N/A 04/17/17 03:30 04/17/18 03:29 04/17/17 17:44 1 EA Baclofen (Lioresal Tab) 10 mg TID PRN PO 04/17/17 03:30 05/17/17 03:29 Celecoxib (CeleBREX CAP) 400 mg BID PO 04/17/17 08:00 05/17/17 08:59 04/17/17 07:36 400 MG Fluoxetine HCl (Prozac Cap) 40 mg HS PO 04/17/17 21:00 05/17/17 20:59 Fluoxetine HCl (Prozac Cap) 20 mg HS PO 04/17/17 21:00 05/17/17 20:59 Fluticasone Propionate (Flonase Nasal [place]) 2 sprays DAILY ROSARIO 04/17/17 08:00 05/17/17 08:59 04/17/17 07:34 2 SPRAYS Loratadine (Claritin Tab) 10 mg DAILY PO 04/17/17 08:00 05/17/17 08:59 04/17/17 07:34 10 MG Lorazepam (Ativan Tab) 0.5 mg TID PRN PO 04/17/17 03:30 05/17/17 03:29 Montelukast Sodium (Singulair Tab) 10 mg DAILY PO 04/17/17 08:00 05/17/17 08:59 04/17/17 07:35 10 MG Pantoprazole Sodium (Protonix Tab) 40 mg BID PO 04/17/17 08:00 05/17/17 08:59 04/17/17 07:33 40 MG Phenazopyridine HCl (Pyridium Tab) 200 mg TID PRN PO 04/17/17 03:30 05/17/17 03:29 04/17/17 07:57 200 MG Topiramate (Topamax Tab) 100 mg BID PO 04/17/17 08:00 05/17/17 08:59 04/17/17 07:35 100 MG Pentosan Polysulfate Sodium (Elmiron) 300 mg BID PO 04/17/17 08:00 05/17/17 08:59 04/17/17 07:33 300 MG Sumatriptan Succinate (Imitrex Tab) 50 mg Q2H PRN PO 04/17/17 03:30 05/17/17 03:29 Ceftriaxone Sodium 1 gm/ Dextrose 50 ml @ 100 mls/hr Q24H IV 04/17/17 23:00 04/27/17 22:59 Enteral Nutritional Formula (Boost Breeze Nutritional Drink) 1 box TID PO 04/17/17 14:00 05/17/17 13:59 04/17/17 14:45 1 BOX Lidocaine HCl/ Diphenhydramine HCl/Al Hydroxide/ Mg Hydroxide/ Glycerin/Barcode Q4H PRN MT 04/17/17 17:15 05/17/17 17:14 Morphine Sulfate (MoRPHine SULFATE INJ) 4 mg Q4HWA PRN IV 04/17/17 17:45 05/01/17 17:44
[2017-04-17] MEDS ORDERED: DEXAMETHASONE CONC SOLN 3.75 MG, NYSTATIN SUSP 30 ML, DiphenhydrAMINE HCL SYRUP 300 MG,... PO SCH ×5 (20:00)
[2017-04-17] MEDS: FLUOXETINE HCL 20 MG CAP PO SCH ×2 (20:26)
[2017-04-17] MEDS: CEFTRIAXONE SOD INJ 1 GM in DEXTROSE 5% ADD-VANTAGE 50ML 50 ML IV SCH (22:53)
[2017-04-18 00:24] VITALS: BP 96/61; PULSE 67; TEMP 36.4; O2SAT 97
[2017-04-18] MEDS: MoRPHine SULFATE 4 MG/ML 1 ML CARP\\VIAL IV PRN ×4 (04:30→23:03)
[2017-04-18 04:53] LABS: HEMATOCRIT 33.9 % (37-47); MEAN CORPUSCULAR HEMOGLOBIN 28.1 pg (25-34); RED BLOOD COUNT 3.99 M/uL (4.2-5.4); WHITE BLOOD COUNT 2.42 K/uL (4.8-10.8)
[2017-04-18 04:56] LABS: MEAN PLATELET VOLUME 8.3 fL (7.4-10.4); PLATELET COUNT 54 K/uL (130-400)
[2017-04-18 05:26] LABS: EOS % 1.2 %; IPF 1.5 % (0.9-8.3); LYMPH % 45.5 %; MONO % 9.1 %; NEUT % 44.2 %
[2017-04-18 05:27] LABS: BUN/CREATININE RATIO 11.5 (10-20); CALCIUM 7.6 mg/dl (8.5-10.1); CREATININE 1.1 mg/dl (0.60-1.20); MAGNESIUM 1.9 mg/dl (1.8-2.4)
[2017-04-18] MEDS: FLUTICASONE PROPIONATE NA SPR 16 GM BTL NAE SCH (07:24)
[2017-04-18] MEDS: PHENAZOPYRIDINE HCL 200 MG TAB PO PRN ×2 (07:25→18:08)
[2017-04-18] MEDS: BOOST BREEZE NUTRITION DRINK 1 BOX PO SCH ×3 (07:25→21:07)
[2017-04-18] MEDS: MONTELUKAST SOD 10 MG TAB PO SCH (07:26)
[2017-04-18] MEDS: PANTOprazole SOD 40 MG TAB PO SCH ×2 (07:26→21:07)
[2017-04-18] MEDS: LORATADINE 10 MG TAB PO SCH (07:26)
[2017-04-18] MEDS: PENTOSAN POLYSULFATE SODIUM 100 MG CAP PO SCH ×2 (07:26→21:07)
[2017-04-18] MEDS: TOPIRAMATE 100 MG TAB PO SCH ×2 (07:27→21:07)
[2017-04-18 08:04] VITALS: BP 109/69; PULSE 61; TEMP 36.7; O2SAT 97
--- NOTE | 2017-04-18 11:36 | GYNECOLOGICAL CONSULTATION ---
DATE OF CONSULTATION: 04/18/2017 CONSULTING PHYSICIAN: Modesto Good MD REASON FOR CONSULT: Vaginal bleeding. HISTORY OF PRESENT ILLNESS: Nya is a very pleasant 36-year-old white female, 0, who is known to our office. We are consulted today by medicine for vaginal bleeding. The patient's history is obtained from personally speaking to the patient, her medical chart on [employer] and her [employer] chart in the office. Nya presented to the hospital for this admission for symptoms of recurrent urinary tract infection. She was previously hospitalized 2 weeks ago with a urinary tract infection and a small bowel obstruction. Small bowel obstruction has resolved, but the urinary tract infection symptoms never got better and so, she presented. The patient's history is quite complicated. She has a history of pretty severe endometriosis. She has had several laparoscopies with treatment of endometriosis at least 3 prior to having a total laparoscopic hysterectomy and bilateral salpingo-oophorectomy done at [facility] by Dr. Andino. That was in 2010. It sounds through the patient's history and on her record review that she has had intermittent vaginal bleeding since that time. She was most recently seen in our office by Dr. Rendon in March of 2016. She had established as a new patient with Dr. Stiles in January of 2016 after having presented to our Emergency Department with vaginal bleeding. Dr. Stiles did not see any acute vaginal bleeding at that time and recommended that she use Vagifem. At her visit with Dr. Rendon in March, there was evidence of gross blood on the perineum, but nothing active from the vagina. Both commented that the vagina was quite atrophic. There was no evidence of masses, recurrent endometriosis or fistula. On review of the records, she had been evaluated at [facility] for this vaginal bleeding. At that same time, she was being admitted and treated for her colorectal carcinoma, most likely secondary to her Crohn's disease. At that time, she had a colectomy and rectum removed and an ileostomy placed. Although, I do not have the records from [place], the patient reports that they did an exam under anesthesia and put some stitches at the top of her vagina. After Dr. Rendon saw her, she was referred to Dr. Lopez, interventional radiology at the [facility]. 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 His plan at that time was to obtain further records from [place] and then obtain an arteriogram with possible embolization if an AV malformation was found. The patient notes that shortly after that visit, her bleeding stopped and slowed, so she never re-presented to Dr. Lopez. In this hospitalization, the patient notes that yesterday, she had the onset of pretty heavy vaginal bleeding that was worse than what she remembered before she notes some dripping blood from the vagina. She notes this to be bright red to dark red and also passing some small clots. She notes that this is what it was like when she saw Dr. Rendon in March of 2016. The patient notes abdominal pain, but she has a long history of chronic abdominal pain likely secondary to her Crohn's and multiple abdominal surgeries. She wonders if her endometriosis, that was located on her diaphragm at the time of her hysterectomy, was not completely resected. She notes that she is having , over the last year, pain that she had similar to what she experienced prior to her hysterectomy has started to return. She describes this as pain that radiates to the mid back, right along her bra line. She notes generally worse lower abdominal pain throughout the year as well. She again reiterated that her ovaries were removed at the time of her hysterectomy, which was either in 2010 or 2012. She notes that she has used vaginal estrogen products in the past, but is not currently using any vaginal estrogen products nor is she taking any oral estrogen therapy. She is also quite concerned about the recurrence of her urinary tract infection. Dr. Rendon was also concerned about this at that time that he saw her in 2015. He referred her back to Dr. Gerardo, her urologist with [facility] and thought that maybe she needed a cystoscopy to evaluate for urinary tract abnormalities that might cause recurrent UTIs. The patient notes that she did see that physician and that the physician felt at that time cystoscopy was not indicated. PAST OB AND HOT BALLER HISTORY: As noted above. The patient has never been . She has never had a history of an abnormal Pap smear nor has she had a sexually transmitted disease. She notes that she has a diagnosis of pelvic floor dysfunction with pelvic floor spasm. She also notes that she has a history of chronic yeast infections, especially when she is on antibiotics. She notes that she has symptoms of itching and vulvar irritation now. When she takes vaginal preparation, it flares her pelvic floor dysfunction. She has taken Diflucan in the past. Her primary care doctor frequently prescribes a week of Diflucan for her when she gets symptomatic. ALLERGIES: THE PATIENT HAS MULTIPLE ALLERGIES INCLUDING CLARITHROMYCIN, HYDROMORPHONE, ONDANSETRON, ZOFRAN, PEANUTS, HYDROXYZINE, ADHESIVES, ALBUTEROL, BEESTINGS, KETOROLAC, LATEX, OXYCODONE, BARIUM SULFATE, LOBSTER, PREGABALIN, AND SULINDAC. MEDICATIONS: At home include Entocort, Celebrex, Prozac, Flonase, Claritin, Singulair, Protonix, Elmiron, and Topamax. P.r.n. medications include Excedrin tension headaches, baclofen, magic swizzle, levalbuterol, lorazepam, metoclopramide, morphine, Pyridium and Compazine. PAST MEDICAL HISTORY: Significant for colorectal carcinoma, history of C. diff, history of recurrent urinary tract infections, history of chronic diarrhea, history of anxiety and depression, history of endometriosis, history of fibromyalgia, history of low blood pressure, history of interstitial cystitis, history of migraines, Raynauds, small-bowel obstruction and idiopathic thrombocytopenia. PAST SURGICAL HISTORY: Includes EGD and colonoscopy/upper endoscopy, laparoscopy x3, total colectomy with ileostomy, appendectomy, [place] assisted total laparoscopic hysterectomy with bilateral salpingo-oophorectomy, oral surgery and sinus surgery. FAMILY HISTORY: Significant for diabetes mellitus, depression, heart disease, gallbladder disease, and hypertension. Her father has a history of prostate cancer. Maternal grandmother, ovarian cancer. Paternal grandmother, breast cancer. SOCIAL HISTORY: The patient is . She rarely uses alcohol. She denies tobacco or drug use. REVIEW OF SYSTEMS: With gynecologic relation, the patient notes vaginal bleeding. She notes vaginal itching. She notes lower abdominal pelvic pain. She notes diarrhea, but this is chronic. PHYSICAL EXAMINATION: GENERAL: This is an emaciated looking white female, who appears to be resting comfortably in her bed. VITAL SIGNS: Most recent set of vitals, temperature 36.7, pulse 61, respiratory rate 16, and blood pressure 109/69. ABDOMEN: Soft and nondistended. There is an ileostomy bag in the right lower quadrant. There is generalized tenderness to palpation of the abdomen. PELVIC: There are normal external female genitalia. There is sparse hair distribution over the mons and genitalia. There is some slight blood tinge to the labia bilaterally. I am limited today in speculum sizes. I have used a smallest one that I have available. The vagina is small. It does admit the speculum, but does not allow me to open it significantly. There is some old dark blood noted within the vagina. There is no bright red blood that rushes into the speculum. There are no clots that I see. There is no area of active bleeding that I can appreciate, although the speculum exam is limited as I am unable to really open it. On bimanual exam, the vagina permits one finger. The vagina is shortened. It appears atrophic. There are no palpable masses. On exam, there is no thickening of the vagina. There is no nodularity to the vagina. There is slight tenderness to palpation of the bladder both vaginally and abdominally. There are no appreciable adnexal masses or tenderness and some slight generalized tenderness to palpation of the pelvis. RECTAL: Deferred as she does not currently have the rectum. LABORATORY DATA: Her hemoglobin is 11.2 and hematocrit 33.4. Her most recent platelet count was 54,000. Coags are normal. Chem profile normal. Recent CT scan for acute abdominal pain showed a prior hysterectomy and with slight free fluid in the pelvis. The ovaries are not visualized or commented on. ASSESSMENT: This is a 36-year-old white female 0, status post total laparoscopic hysterectomy and bilateral salpingo-oophorectomy 5-6 years ago at [facility] for pretty severe endometriosis, who certainly in the last 2 years, but intermittently since the time of her hysterectomy, has had intermittent vaginal bleeding. She has had another episode of that last night and today. Exam was limited today because of limited speculums in the hospital, but I do not see any active , heavy bleeding at this time. The vaginal cuff feels intact. There are no masses. 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 The patient saw Dr. Lopez at interventional radiology in [place] and had a partial workup, they were waiting on records, her bleeding slowed down and stopped and so, she never followed up. I suggested to the patient that now with time again, to follow through, with this evaluation even if the bleeding stopped after she went home from the hospital. She is agreeable to this. Through my office, we will be working with Dr. Lopez's office to make sure that he has all the appropriate documentation for her to have this follow up. When she is discharged from the hospital, she is to call my office and I will then have her come into the office where I will be better able to examine the top of the vaginal cuff with more appropriate speculum. She is agreeable to this. In the meantime, there is not much to do about the vaginal bleeding. She's had it for at least 2 years. It is intermittent. It is not making her significantly anemic. When her platelets are lower, it is possible that she may have more bleeding and so, this may be contributing to what is going on now as currently her platelets are 54,000. Concerned about return of possible endometriosis pain. We discussed that unless the patient has an ovarian remnant, it is somewhat unlikely that the increasing pain that she is speaking of is related to endometriosis, as endometriosis is directly related to estrogen stimulation, for which she has had an oophorectomy and likely does not have much estrogen. I have ordered an estradiol level to be drawn with her next blood draw to evaluate to see if her estradiol levels are indeed in the postmenopausal range consistent with post-surgical menopause, or if perhaps her estradiol levels are elevated, which may indicate a possible ovarian remnant. Unfortunately, if there is an ovarian remnant or possible recurrence of endometriosis, it is going to be difficult to treat this as her best option will likely be surgical and given all of her surgeries in the past presents probably some significant risk to the patient. Possible yeast. If medicine feels appropriate, I certainly think that the patient can have Diflucan. She would rather avoid vaginal preparations as it aggravates her pelvic floor dysfunction. You could certainly consider a longer course of Diflucan because probably her absorption is limited given her previous surgeries. You could consider Diflucan 100 mg every day for 7 days. Recurrent urinary tract infection. The patient asks me if I see any reason why I think she should be having recurrent urinary tract infections. I do not see anything by my physical exam. It may be worthwhile to consult urology or have her seen by urology on an outpatient basis and again consider cystoscopy to rule out anatomical issues why she might be having recurrent urinary tract infection. I see no gynecologic reason why she has such. Thank you very much for allowing me to consult on Nya. Please have her call the office when she is discharged from the hospital and I will certainly get her in to be further evaluated. I will also follow up with Dr. Lopez's office and get her another evaluation there. In the meantime, she will continue to have vaginal bleeding. There is not lot we can do for that currently until we get her seen by Dr. Lopez, an interventional radiology. If we can be of further service, please do not hesitate to consult. JEANNIE
[2017-04-18 12:21] LABS: HEMATOCRIT 33.2 % (37-47)
--- NOTE | 2017-04-18 13:38 | Progress Note ---
Subjective Date of Service: Apr 18, 2017. Subjective pt remains on IV ctx. tolerating well. no f/c. 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 wbc remains low. No overnight events. Problem List Medical Problems: (1) Abdominal pain Status: Acute (2) Abdominal pain Status: Acute (3) Abdominal pain Status: Acute (4) Dehydration Status: Acute (5) Dehydration Status: Acute (6) Dehydration Status: Acute (7) Headache Status: Acute (8) Hypotension Status: Acute (9) Intractable abdominal pain Status: Acute (10) Lower abdominal pain Status: Acute (11) Paronychia of toe of left foot Status: Acute (12) Small bowel obstruction Status: Acute (13) Thrombocytopenia Status: Chronic (14) Urinary tract infection Status: Acute (15) UTI (urinary tract infection) Status: Acute (16) UTI (urinary tract infection) Status: Acute (17) UTI (urinary tract infection) Status: Acute Objective Vital Signs Date Time Temp Pulse Resp B/P (MAP) Pulse Ox O2 Delivery O2 Flow Rate FiO2 04/18/17 08:04 36.7 61 16 109/69 (82) 97 Room Air 04/18/17 08:00 Room Air 04/18/17 00:24 36.4 67 18 96/61 (73) 97 Room Air 04/17/17 23:45 Room Air 04/17/17 16:00 Room Air 04/17/17 15:59 36.8 80 16 94/62 (73) 96 Room Air Laboratory Results Item Value Date Time Urine Culture - Final Complete 04/16/17 2132 Urine , Clean Catch Escherichia Coli C.difficile Toxin B Gene (PCR) - Final Complete 04/16/17 2256 Stool No C. difficile toxin B gene detected Last 24 Hours Test 04/18/17 04:36 04/18/17 11:59 White Blood Count 2.42 K/uL Red Blood Count 3.99 M/uL Hemoglobin 11.2 g/dL 11.1 g/dL Hematocrit 33.9 % 33.2 % Mean Corpuscular Volume 85.0 fL Mean Corpuscular Hemoglobin 28.1 pg Mean Corpuscular Hemoglobin Concent 33.0 g/dl Platelet Count 54 K/uL Mean Platelet Volume 8.3 fL Neutrophils (%) (Auto) 44.2 % Lymphocytes (%) (Auto) 45.5 % Monocytes (%) (Auto) 9.1 % Eosinophils (%) (Auto) 1.2 % Basophils (%) (Auto) 0.0 % Neutrophils # (Auto) 1.07 K/uL Lymphocytes # (Auto) 1.10 K/uL Monocytes # (Auto) 0.22 K/uL Eosinophils # (Auto) 0.03 K/uL Basophils # (Auto) 0.00 K/uL RDW Standard Deviation 45.8 fL RDW Coefficient of Variation 14.6 % Immature Granulocyte % (Auto) 0.0 % Immature Granulocyte # (Auto) 0.00 K/uL Immature Platelet Fraction 1.5 % Red Blood Cell Morphology Unremarkable Peripheral Blood Smear Path Consult Sodium Level 142 mmol/L Potassium Level 4.0 mmol/L Chloride Level 113 mmol/L Carbon Dioxide Level 25 mmol/L Anion Gap 4.0 mmol/L Blood Urea Nitrogen 13 mg/dl Creatinine 1.10 mg/dl Est Creatinine Clear Calc Drug Dose 55.7 ml/min Estimated GFR () 74.3 Estimated GFR (Non- 64.1 BUN/Creatinine Ratio 11.5 Random Glucose 55 mg/dl Calcium Level 7.6 mg/dl Magnesium Level 1.9 mg/dl Enhanced Estradiol < 11.8 pg/ml Assessment and Plan (1) UTI (urinary tract infection) Assessment & Plan: ok to continue ctx. may require outpt gu eval for recurrent uti. concerned with absorption of po abx, ok for picc if needed from ID standpoint. would give 10 days ctx. No new ID recs. ok for d/c from ID standpoint when otherwise stable
[2017-04-18 14:48] LABS: COMPLETE YES
[2017-04-18 16:15] VITALS: BP 105/69; PULSE 73; TEMP 36.6; O2SAT 97
--- NOTE | 2017-04-18 19:32 | Progress Note ---
Medicine Progress Note Date & Time of Visit: Apr 18, 2017 at 12:20. Subjective Pt was seen and examined Sitting in bed comfortable playing on her cell phone Pt had an episode of hematuria yesterday she said that the blood in her urine seems to improved she said that the IV morphine seems to help with the pain denies any fever, palpitation, chest pain and sob Objective Last 8 Hrs Date Time Temp Pulse Resp B/P (MAP) Pulse Ox O2 Delivery O2 Flow Rate FiO2 04/18/17 16:15 36.6 73 19 105/69 (81) 97 Room Air Physical Exam: General-No acute distress Head- atraumatic Eyes- PERRL, EOMI ENT- oropharynx clear Neck- supple, no JVD Lungs- clear to auscultation Heart- regular rhythm; no murmur Abdomen- +mild tenderness on palpation, +ileostomy bag, +Nondistended Extremities- no calf tenderness Neuro- alert, oriented x 3; PERRL, EOMI; Skin- warm & dry Laboratory Results: Last 24 Hours Test 04/18/17 04:36 04/18/17 11:59 White Blood Count 2.42 K/uL Red Blood Count 3.99 M/uL Hemoglobin 11.2 g/dL 11.1 g/dL Hematocrit 33.9 % 33.2 % Mean Corpuscular Volume 85.0 fL Mean Corpuscular Hemoglobin 28.1 pg Mean Corpuscular Hemoglobin Concent 33.0 g/dl Platelet Count 54 K/uL Mean Platelet Volume 8.3 fL Neutrophils (%) (Auto) 44.2 % Lymphocytes (%) (Auto) 45.5 % Monocytes (%) (Auto) 9.1 % Eosinophils (%) (Auto) 1.2 % Basophils (%) (Auto) 0.0 % Neutrophils # (Auto) 1.07 K/uL Lymphocytes # (Auto) 1.10 K/uL Monocytes # (Auto) 0.22 K/uL Eosinophils # (Auto) 0.03 K/uL Basophils # (Auto) 0.00 K/uL RDW Standard Deviation 45.8 fL RDW Coefficient of Variation 14.6 % Immature Granulocyte % (Auto) 0.0 % Immature Granulocyte # (Auto) 0.00 K/uL Immature Platelet Fraction 1.5 % Red Blood Cell Morphology Unremarkable Peripheral Blood Smear Path Consult Sodium Level 142 mmol/L Potassium Level 4.0 mmol/L Chloride Level 113 mmol/L Carbon Dioxide Level 25 mmol/L Anion Gap 4.0 mmol/L Blood Urea Nitrogen 13 mg/dl Creatinine 1.10 mg/dl Est Creatinine Clear Calc Drug Dose 55.7 ml/min Estimated GFR () 74.3 Estimated GFR (Non- 64.1 BUN/Creatinine Ratio 11.5 Random Glucose 55 mg/dl Calcium Level 7.6 mg/dl Magnesium Level 1.9 mg/dl Enhanced Estradiol < 11.8 pg/ml Assessment & Plan Chronic Abdominal pain Hx of Crohn dx pain improved with IV morphine Tolerated regular diet CT abd/pelvis showed mild nonspecific dilation of the proximal duodenum persists , however on comparison study dated 03/28/2017 the duodenum did not cross to the left of midline and on today's study it does with jejunum seen within the left abdomen. These findings suggest ligamentous laxity or wandering duodenum which may be postsurgical or congenital. 2. No additional dilated loops of bowel are seen to suggest obstruction. No pneumoperitoneum. Recurrent urinary tract infections Urine cx grew E. 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 Arredondo yesterday Continue monitor CBC No NSAIDs Worsening migraine sx CT head negative improved Chronic pain syndrome On chronic narcotic Continue IV morphine DVT px on SCDs due to thrombocytopenia CODE STATUS FULL CODE Consultants: ID Current Inpatient Medications: Current Inpatient Medications Medications (Trade) Dose Ordered Sig/Tamar Route Start Time Stop Time Status Last Admin Dose Admin Tramadol HCl (Ultram Tab) not relieved by tylenol @ Q6H PRN PO 04/17/17 01:15 05/17/17 01:14 Acetaminophen (Tylenol Tab) 650 mg Q6H PRN PO 04/17/17 01:15 05/17/17 01:14 Acetaminophen 650 mg/Empty Bag 65 ml @ 260 mls/hr Q6H PRN IV 04/17/17 01:15 05/17/17 01:14 04/17/17 08:45 260 MLS/HR Promethazine HCl 12.5 mg/Sodium Chloride 50.5 ml @ 204 mls/hr Q6H PRN IV 04/17/17 01:15 05/17/17 01:14 04/18/17 13:54 204 MLS/HR Ioversol (Optiray 320) 100 ml UD PRN IV 04/17/17 01:15 04/21/17 01:14 Morphine Sulfate (MoRPHine SULFATE IR TAB) 30 mg TID PRN PO 04/17/17 02:00 05/01/17 01:59 Future Hold 04/17/17 09:18 30 MG Miscellaneous (Iv Fluids Completed) 1 ea PRN PRN N/A 04/17/17 03:30 04/17/18 03:29 04/17/17 17:44 1 EA Baclofen (Lioresal Tab) 10 mg TID PRN PO 04/17/17 03:30 05/17/17 03:29 Celecoxib (CeleBREX CAP) 400 mg BID PO 04/17/17 08:00 05/17/17 08:59 Future Hold 04/17/17 07:36 400 MG Fluoxetine HCl (Prozac Cap) 40 mg HS PO 04/17/17 21:00 05/17/17 20:59 04/17/17 20:26 40 MG Fluoxetine HCl (Prozac Cap) 20 mg HS PO 04/17/17 21:00 05/17/17 20:59 04/17/17 20:26 20 MG Fluticasone Propionate (Flonase Nasal [place]) 2 sprays DAILY ROSARIO 04/17/17 08:00 05/17/17 08:59 04/18/17 07:24 2 SPRAYS Loratadine (Claritin Tab) 10 mg DAILY PO 04/17/17 08:00 05/17/17 08:59 04/18/17 07:26 10 MG Lorazepam (Ativan Tab) 0.5 mg TID PRN PO 04/17/17 03:30 05/17/17 03:29 04/18/17 07:24 0.5 MG Montelukast Sodium (Singulair Tab) 10 mg DAILY PO 04/17/17 08:00 05/17/17 08:59 04/18/17 07:26 10 MG Pantoprazole Sodium (Protonix Tab) 40 mg BID PO 04/17/17 08:00 05/17/17 08:59 04/18/17 07:26 40 MG Phenazopyridine HCl (Pyridium Tab) 200 mg TID PRN PO 04/17/17 03:30 05/17/17 03:29 04/18/17 18:08 200 MG Topiramate (Topamax Tab) 100 mg BID PO 04/17/17 08:00 05/17/17 08:59 04/18/17 07:27 100 MG Pentosan Polysulfate Sodium (Elmiron) 300 mg BID PO 04/17/17 08:00 05/17/17 08:59 04/18/17 07:26 300 MG Sumatriptan Succinate (Imitrex Tab) 50 mg Q2H PRN PO 04/17/17 03:30 05/17/17 03:29 Ceftriaxone Sodium 1 gm/ Dextrose 50 ml @ 100 mls/hr Q24H IV 04/17/17 23:00 04/27/17 22:59 04/17/17 22:53 100 MLS/HR Enteral Nutritional Formula (Boost Breeze Nutritional Drink) 1 box TID PO 04/17/17 14:00 05/17/17 13:59 04/18/17 13:40 1 BOX Lidocaine HCl/ Diphenhydramine HCl/Al Hydroxide/ Mg Hydroxide/ Glycerin/Barcode Q4H PRN MT 04/17/17 17:15 05/17/17 17:14 04/17/17 18:13 5 ML Morphine Sulfate (MoRPHine SULFATE INJ) 4 mg Q4HWA PRN IV 04/17/17 17:45 05/01/17 17:44 04/18/17 18:08 4 MG
[2017-04-18] MEDS: FLUOXETINE HCL 20 MG CAP PO SCH ×2 (21:08)
[2017-04-18] MEDS: CEFTRIAXONE SOD INJ 1 GM in DEXTROSE 5% ADD-VANTAGE 50ML 50 ML IV SCH (23:05)
[2017-04-18 23:55] VITALS: BP 95/59; PULSE 67; TEMP 36.6; O2SAT 97
[2017-04-19] MEDS: MoRPHine SULFATE 4 MG/ML 1 ML CARP\\VIAL IV PRN ×3 (04:16→15:19)
[2017-04-19 07:02] LABS: MEAN CORPUSCULAR HEMOGLOBIN 27.3 pg (25-34); MEAN CORPUSCULAR HGB CONC 31.7 g/dl (32-36); RED BLOOD COUNT 4.07 M/uL (4.2-5.4); WHITE BLOOD COUNT 1.75 K/uL (4.8-10.8)
[2017-04-19 07:09] LABS: MEAN PLATELET VOLUME 9.1 fL (7.4-10.4); PLATELET COUNT 53 K/uL (130-400)
[2017-04-19 07:31] VITALS: BP 101/66; PULSE 70; TEMP 36.6; O2SAT 96
[2017-04-19 07:39] LABS: PLT ESTIMATE DECREASED
[2017-04-19] MEDS: FLUTICASONE PROPIONATE NA SPR 16 GM BTL NAE SCH (07:41)
[2017-04-19] MEDS: BOOST BREEZE NUTRITION DRINK 1 BOX PO SCH ×2 (07:41→13:20)
[2017-04-19] MEDS: LORATADINE 10 MG TAB PO SCH (07:42)
[2017-04-19] MEDS: TOPIRAMATE 100 MG TAB PO SCH (07:42)
[2017-04-19] MEDS: MONTELUKAST SOD 10 MG TAB PO SCH (07:42)
[2017-04-19] MEDS: PANTOprazole SOD 40 MG TAB PO SCH (07:42)
[2017-04-19] MEDS: PENTOSAN POLYSULFATE SODIUM 100 MG CAP PO SCH (07:42)
[2017-04-19] MEDS: PHENAZOPYRIDINE HCL 200 MG TAB PO PRN (07:42)
[2017-04-19] MEDS ORDERED: FLUCONAZOLE 100 MG TAB PO ONE (12:45)
[2017-04-19] MEDS: CEFTRIAXONE SOD INJ 1 GM in DEXTROSE 5% ADD-VANTAGE 50ML 50 ML IV SCH (15:18)
--- NOTE | 2017-04-19 17:13 | Progress Note ---
Medicine Progress Note Date & Time of Visit: Apr 19, 2017 at 16:58. Subjective Pt was seen and examined Sitting in bed with no distress Denies any chest pain, palpitation, dizziness and SOB Objective Physical Exam: General-No acute distress Head- atraumatic Eyes- PERRL, EOMI ENT- oropharynx clear Neck- supple, no JVD Lungs- clear to auscultation Heart- regular rhythm; no murmur Abdomen- +mild tenderness on palpation, +ileostomy bag, +Nondistended Extremities- no calf tenderness Neuro- alert, oriented x 3; PERRL, EOMI; Skin- warm & dry Laboratory Results: Last 24 Hours Test 04/19/17 06:33 White Blood Count 1.75 K/uL Red Blood Count 4.07 M/uL Hemoglobin 11.1 g/dL Hematocrit 35.0 % Mean Corpuscular Volume 86.0 fL Mean Corpuscular Hemoglobin 27.3 pg Mean Corpuscular Hemoglobin Concent 31.7 g/dl RDW Standard Deviation 45.8 fL RDW Coefficient of Variation 14.5 % Platelet Count 53 K/uL Mean Platelet Volume 9.1 fL Platelet Estimate DECREASED Assessment & Plan Chronic Abdominal pain Hx of Crohn dx Will resume her PO pain med Tolerated regular diet CT abd/pelvis showed mild nonspecific dilation of the proximal duodenum persists , however on comparison study dated 03/28/2017 the duodenum did not cross to the left of midline and on today's study it does with jejunum seen within the left abdomen. These findings suggest ligamentous laxity or wandering duodenum which may be postsurgical or congenital. 2. No additional dilated loops of bowel are seen to suggest obstruction. No pneumoperitoneum. Recurrent urinary tract infections Urine cx grew E. COLI Continue IV Rocephin Urology was notified, no intervention management per urologist ID on board recommended to continue IV Rocephin due to possible oral absorption OK by ID to discharge on IV rocephin x 10 days IV team tried to insert a PICC line, unable to get it in A new peripheral line will put today before discharge today Case discussed with case management for home nurse to change the peripheral access after 3 to 4 days Hematuria Seems to be intermittently chronic TRAVEL COUNSELOR consulted TRAVEL COUNSELOR recommended diflucan 100mg daily for 7 days, 1st dose given today in the hospital Continue follow with TRAVEL COUNSELOR as an outpatient Hgb stable Chronic Diarrhea Stool for C-diff negative Continue IVF Tolerated regular diet Thrombocytopenia Platelet 53 today will watch for sign of bleeding case discussed with hem/onc Dr. Arredondo Continue monitor CBC No NSAIDs Worsening migraine sx CT head negative improved Chronic pain syndrome On chronic narcotic Continue IV morphine for now Will resume po narcotic on discharge DVT px on SCDs due to thrombocytopenia CODE STATUS FULL CODE Disposition Discharge home today Call your primary care provider to schedule follow up appointment within 1 week OK to discharge with peripheral line for IV rocephin infusion Complete 7 days of IV Rocephin Complete the course of Diflucan Home nurse to change the peripheral line after 3 to 4 days Follow up with Gynecology (please call to schedule follow up appointment) Follow up with hematology Check CBC within 1 week Consultants: ID Current Inpatient Medications: Current Inpatient Medications Medications (Trade) Dose Ordered Sig/Tamar Route Start Time Stop Time Status Last Admin Dose Admin Tramadol HCl (Ultram Tab) not relieved by tylenol @ Q6H PRN PO 04/17/17 01:15 05/17/17 01:14 04/19/17 07:38 50 MG Acetaminophen (Tylenol Tab) 650 mg Q6H PRN PO 04/17/17 01:15 05/17/17 01:14 Acetaminophen 650 mg/Empty Bag 65 ml @ 260 mls/hr Q6H PRN IV 04/17/17 01:15 05/17/17 01:14 04/17/17 08:45 260 MLS/HR Promethazine HCl 12.5 mg/Sodium Chloride 50.5 ml @ 204 mls/hr Q6H PRN IV 04/17/17 01:15 05/17/17 01:14 04/18/17 13:54 204 MLS/HR Ioversol (Optiray 320) 100 ml UD PRN IV 04/17/17 01:15 04/21/17 01:14 Morphine Sulfate (MoRPHine SULFATE IR TAB) 30 mg TID PRN PO 04/17/17 02:00 05/01/17 01:59 Future Hold 04/17/17 09:18 30 MG Miscellaneous (Iv Fluids Completed) 1 ea PRN PRN N/A 04/17/17 03:30 04/17/18 03:29 04/17/17 17:44 1 EA Baclofen (Lioresal Tab) 10 mg TID PRN PO 04/17/17 03:30 05/17/17 03:29 Celecoxib (CeleBREX CAP) 400 mg BID PO 04/17/17 08:00 05/17/17 08:59 Future Hold 04/17/17 07:36 400 MG Fluoxetine HCl (Prozac Cap) 40 mg HS PO 04/17/17 21:00 05/17/17 20:59 04/18/17 21:08 40 MG Fluoxetine HCl (Prozac Cap) 20 mg HS PO 04/17/17 21:00 05/17/17 20:59 04/18/17 21:08 20 MG Fluticasone Propionate (Flonase Nasal [place]) 2 sprays DAILY ROSARIO 04/17/17 08:00 05/17/17 08:59 04/19/17 07:41 2 SPRAYS Loratadine (Claritin Tab) 10 mg DAILY PO 04/17/17 08:00 05/17/17 08:59 04/19/17 07:42 10 MG Lorazepam (Ativan Tab) 0.5 mg TID PRN PO 04/17/17 03:30 05/17/17 03:29 04/18/17 07:24 0.5 MG Montelukast Sodium (Singulair Tab) 10 mg DAILY PO 04/17/17 08:00 05/17/17 08:59 04/19/17 07:42 10 MG Pantoprazole Sodium (Protonix Tab) 40 mg BID PO 04/17/17 08:00 05/17/17 08:59 04/19/17 07:42 40 MG Phenazopyridine HCl (Pyridium Tab) 200 mg TID PRN PO 04/17/17 03:30 05/17/17 03:29 04/19/17 07:42 200 MG Topiramate (Topamax Tab) 100 mg BID PO 04/17/17 08:00 05/17/17 08:59 04/19/17 07:42 100 MG Pentosan Polysulfate Sodium (Elmiron) 300 mg BID PO 04/17/17 08:00 05/17/17 08:59 04/19/17 07:42 300 MG Sumatriptan Succinate (Imitrex Tab) 50 mg Q2H PRN PO 04/17/17 03:30 05/17/17 03:29 04/19/17 10:40 50 MG Ceftriaxone Sodium 1 gm/ Dextrose 50 ml @ 100 mls/hr Q24H IV 04/17/17 23:00 04/27/17 22:59 04/19/17 15:18 100 MLS/HR Enteral Nutritional Formula (Boost Breeze Nutritional Drink) 1 box TID PO 04/17/17 14:00 05/17/17 13:59 04/19/17 13:20 1 BOX Lidocaine HCl/ Diphenhydramine HCl/Al Hydroxide/ Mg Hydroxide/ Glycerin/Barcode Q4H PRN MT 04/17/17 17:15 05/17/17 17:14 04/17/17 18:13 5 ML Morphine Sulfate (MoRPHine SULFATE INJ) 4 mg Q4HWA PRN IV 04/17/17 17:45 05/01/17 17:44 04/19/17 15:19 4 MG Fluconazole (Diflucan Tab) 100 mg QAM PO 04/20/17 08:00 04/30/17 07:59
[2017-04-19] MEDS ORDERED: DFL100 PO (17:19)
[2017-04-19] MEDS ORDERED: RCPAV1 IV (17:19)
--- NOTE | 2017-04-19 17:22 | Discharge Instructions ---
Discharge Instructions Date of Service Apr 19, 2017. Admission Reason for Admission: Abdominal Pain Discharge Discharge Diagnosis / Problem: Chronic abdominal pain, Recurrent urinary tract infections, Hematuria Discharge Goals Goal(s): Decrease discomfort, Improve function, Improve disease control Activity Recommendations Activity Limitations: resume your previous activity . Instructions / Follow-Up Instructions / Follow-Up Discharge home today with home health Call your primary care provider to schedule follow up appointment within 1 week OK to discharge with peripheral line for IV rocephin infusion Complete 7 days of IV Rocephin Complete the course of Diflucan Home nurse to change the peripheral line after 3 to 4 days Follow up with Gynecology (please call to schedule follow up appointment) Follow up with hematology Check CBC within 1 week Current Hospital Diet Patient's current hospital diet: Regular Diet Discharge Diet Recommended Diet: Regular Diet Pending Studies Studies pending at discharge: no Medical Emergencies . Who to Call and When: Medical Emergencies: If at any time you feel your situation is an emergency, please call 911 immediately. . Non-Emergent Contact Non-Emergency issues call your: Primary Care Provider Call Non-Emergent contact if: you have a fever, your pain is not controlled, you have any medication questions . . "Provider Documentation" section prepared by [place] Good. . VTE Core Measure Inpt VTE Proph given/why not?: SCD's
[2017-04-19 17:31] VITALS: BP 101/66; PULSE 70; TEMP 36.6; O2SAT 96
[2017-04-20] MEDS ORDERED: FLUCONAZOLE 100 MG TAB PO SCH (08:00)
--- NOTE | 2017-04-21 17:29 | Discharge Summary ---
Discharge Summary Date of Service Apr 21, 2017. Discharge Summary Admission Date: Apr 17, 2017 at 03:06 Discharge Date: Apr 19, 2017 Discharge Disposition: Home with services Principal Diagnosis: Chronic abdominal pain Secondary Diagnoses/Problems: Recurrent urinary tract infections Hematuria Thrombocytopenia Chronic pain syndrome Chronic Diarrhea Procedures: ABD/PELVIS IV CONTRAST ONLY HISTORY: 36 years-old Female acute abdominal pain. Prior colectomy with right lower quadrant ileostomy COMPARISON: Upper GI 03/29/2017, CT abdomen and pelvis 03/28/2017 and 12/26/2016. TECHNIQUE: Multiple axial CT images of the abdomen and pelvis were obtained following the intravenous administration of 93 mL Optiray 320. No oral contrast was administered. A dose lowering technique was used consistent with the principals of LUZ MARIA. FINDINGS: Small calcified granuloma is present in the left lung base with minimal subsegmental bibasilar atelectasis. There is no pneumoperitoneum. The imaged inferior cardiac chambers are unremarkable. The liver, pancreas and adrenal glands are unremarkable. Spleen is enlarged measuring up to 14 cm in length. There is a 5 mm echogenic structure along the dependent gallbladder lumen suspicious for cholelithiasis. No CT evidence of acute cholecystitis. The kidneys, ureters and urinary bladder are unremarkable. Prior hysterectomy. There is trace free fluid within the pelvis which is nonspecific and may be physiologic. The abdominal aorta is normal in course and caliber. There is no bulky retroperitoneal adenopathy identified. On today's study, the duodenum crosses to the left of midline with jejunum seen within the left mid abdomen. There is mild dilatation and air-fluid leveling of the proximal duodenum which is likely physiologic. The previously described swirling and dilation of small bowel within the right abdomen with findings suggesting malrotation are no longer identified. This suggests mobile bowel with ligamentous laxity which may be congenital or postsurgical in nature. There is no evidence of bowel obstruction. Prior colectomy with right lower quadrant ileostomy. The soft tissues are unremarkable. Sclerosis involve the bilateral sacroiliac joints. The bones are mildly demineralized. There is convex right curvature of the upper lumbar spine. IMPRESSION: 1. Mild nonspecific dilation of the proximal duodenum persists, however on comparison study dated 03/28/2017 the duodenum did not cross to the left of midline and on today's study it does with jejunum seen within the left abdomen. These findings suggest ligamentous laxity or wandering duodenum which may be postsurgical or congenital. 2. No additional dilated loops of bowel are seen to suggest obstruction. No pneumoperitoneum. 3. Prior colectomy with right lower quadrant ileostomy. 4. Splenomegaly. 5. Probable cholelithiasis. The above report was generated using voice recognition software. It may contain grammatical, syntax or spelling errors. Electronically signed by: Lucian Martinez M.D. 04/17/2017 7:34 AM Dictated Date/Time: 04/17/2017 7:04 AM HEAD WITHOUT CONTRAST (CT) CLINICAL HISTORY: 36 years-old Female with worsening sharma. TECHNIQUE: Multiple axial CT images of the head were obtained without contrast. A dose lowering technique was utilized adhering to the principles of ALARA. CT DOSE: 884.66 mGy.cm COMPARISON: Brain MRI 03/20/2016. FINDINGS: No acute intracranial hemorrhage, midline shift, mass, large territorial ischemia or abnormal extra-axial collection. The calvarium is intact. Moderate right and small left mastoid effusions are present. There is evidence of prior bilateral maxillary antrostomy. Paranasal sinuses are generally clear. Soft tissues are unremarkable. The orbits are symmetric. IMPRESSION: 1. No acute intracranial abnormality. 2. Redemonstration of bilateral mastoid effusions. 3. Prior bilateral maxillary antrostomy. The above report was generated using voice recognition software. It may contain grammatical, syntax or spelling errors. Electronically signed by: Lucian Martinez M.D. 04/17/2017 6:32 AM Dictated Date/Time: 04/17/2017 6:30 AM Consultations: ID FOAM TANK LAMINATOR Medication Reconciliation New Medications: Ceftriaxone Sod (Rocephin) 1 Gm Inj 1 GM IV DAILY for 7 Days, VIAL Fluconazole (Fluconazole) 100 Mg Tab 100 MG PO QAM for 6 Days, TAB Continued Medications: Acetaminophen-Caffeine (Excedrin Tension Headache) 1 Tab Tab 1 TAB PO UD PRN for Headache TAKE PER PACKAGE DIRECTIONS Baclofen (Lioresal) 10 Mg Tab 10 MG PO TID PRN for Hiccups, TAB Budesonide (Entocort Ec) 3 Mg Cap 9 MG PO DAILY, CAP Diphenhy/Alum/Mag/Sucralfa (Magic Swizzle - Diphenhy/Alum/Mag/Sucralfa) Susp 1 TSP PO Q4H PRN for UD, #200 ML 1 Refill 30ML DIPHENHYDRAMINE SLN 12.5/5ML 60ML MAALOX 4GM CARAFATE SWISH AND SPIT Fluoxetine (Prozac) 40 Mg Cap 40 MG PO HS, CAP TAKE ONE 40 MG CAPSULE ALONG WITH ONE 20 MG CAPSULE TO EQUAL 60 MG DAILY DOSE Fluoxetine Hcl (Prozac) 20 Mg Cap 20 MG PO HS, CAP TAKE ONE 20 MG CAPSULE ALONG WITH ONE 40 MG CAPSULE TO EQUAL 60 MG DAILY DOSE Fluticasone Propionate (Nasal) (Flonase Allergy Relief Ch) 50 Mcg/Act Spr 2 SPRAYS ROSARIO DAILY Levalbuterol Tartrate (Levalbuterol Tartrate Hfa) 45 Mcg/Act Aer 2 PUFFS INH Q4H PRN for Wheezing Loratadine (Claritin) 10 Mg Tab 10 MG PO DAILY, TAB Lorazepam (Ativan) 0.5 Mg Tab 0.5 MG PO TID PRN for Anxiety, TAB Metoclopramide Hcl (Reglan) 10 Mg Tab 5 MG PO Q6H PRN for Nausea-Hiccups, TAB NAUSEA Montelukast Sodium (Singulair) 10 Mg Tab 10 MG PO DAILY, TAB Morphine Sulfate (Morphine Sulfate Ir) 15 Mg Tab 30 MG PO Q8 PRN for Pain Pantoprazole (Protonix) 40 Mg Tab 40 MG PO BID, TAB Pentosan Polysulfate Sodium (Elmiron) 100 Mg Cap 300 MG PO BID, CAP TAKE THIS MEDICATION TWICE DAILY WITH WATER 1 TO 2 HOURS AFTER A MEAL Phenazopyridine HCl (Pyridium) 200 Mg Tab 200 MG PO TID PRN for Bladder pain, TAB Prochlorperazine Maleate (Compazine) 10 Mg Tab 10 MG PO TID PRN for Nausea, TAB Topiramate (Topamax) 100 Mg Tab 100 MG PO BID, TAB Discontinued Medications: Celecoxib (Celebrex) 400 Mg Cap 400 MG PO BID, CAP Admission Information HPI (per Admitting provider): CHIEF COMPLAINT: Abdominal pain, UTI. HISTORY OF PRESENT ILLNESS: Hx obtained from patient and records. Medical history is significant for fibromyalgia, migraine headache, history of Crohn disease, colorectal cancer status post surgery 2016, endometriosis status post hysterectomy, hx cdiff status post fecal transplantation, chronic thrombocytopenia, recurrent UTIs (hx interstitial cystitis) Recent confinement 2 weeks ago for UTI symptoms. Urine cultures grew quinolone resistant E. coli. Patient completed IV ceftriaxone course. Patient seen by ID, A-port was not felt necessary at that time. Since discharge, worsening hypogastric pain across her belly going to her flank with nausea, one episode of emesis; loose ileostomy output, no chest pain, no shortness of breath, worsening migraine headaches, now twice weekly in the last month. No fever, no chills. Patient's PCP prescribed Macrodantin for possible UTI. Patient did not want to take it due to concerns about thrombocytopenia. Physical Exam (per Admitting): PHYSICAL EXAMINATION: VITAL SIGNS: Blood pressure was noted to be BP 110/70 pulse 67, RR 08, temperature 36.8, sats 94% on room air. GENERAL: Noted to be comfortable, no respiratory distress, looks older than stated age. SKIN: Normal color. HEENT: [place] palpebral conjunctivae. Dry mucosa. NECK: No JVD. Supple. CHEST: Clear to auscultation. HEART: Regular rate and rhythm. ABDOMEN: Healed incisional scars, hypogastric tenderness. Ileostomy noted. EXTREMITIES: No edema. No tenderness. NEUROLOGIC: No gross focality. Hospital Course Chronic Abdominal pain Hx of Crohn dx Will resume her PO pain med Tolerated regular diet CT abd/pelvis showed mild nonspecific dilation of the proximal duodenum persists , however on comparison study dated 03/28/2017 the duodenum did not cross to the left of midline and on today's study it does with jejunum seen within the left abdomen. These findings suggest ligamentous laxity or wandering duodenum which may be postsurgical or congenital. 2. No additional dilated loops of bowel are seen to suggest obstruction. No pneumoperitoneum. Recurrent urinary tract infections Urine cx grew E. COLI Continue IV Rocephin Urology was notified, no intervention management per urologist ID on board recommended to continue IV Rocephin due to possible oral absorption OK by ID to discharge on IV rocephin x 10 days IV team tried to insert a PICC line, unable to get it in A new peripheral line will put today before discharge today Case discussed with case management for home nurse to change the peripheral access after 3 to 4 days Hematuria Seems to be intermittently chronic FOAM TANK LAMINATOR consulted FOAM TANK LAMINATOR recommended diflucan 100mg daily for 7 days, 1st dose given today in the hospital Continue follow with FOAM TANK LAMINATOR as an outpatient Hgb stable Chronic Diarrhea Stool for C-diff negative Continue IVF Tolerated regular diet Thrombocytopenia Platelet 53 today will watch for sign of bleeding case discussed with hem/onc Dr. Arredondo Continue monitor CBC No NSAIDs Worsening migraine sx CT head negative improved Chronic pain syndrome On chronic narcotic Continue IV morphine for now Will resume po narcotic on discharge DVT px on SCDs due to thrombocytopenia CODE STATUS FULL CODE Disposition Discharge home today Call your primary care provider to schedule follow up appointment within 1 week OK to discharge with peripheral line for IV rocephin infusion Complete 7 days of IV Rocephin Complete the course of Diflucan Home nurse to change the peripheral line after 3 to 4 days Follow up with Gynecology (please call to schedule follow up appointment) Follow up with hematology Check CBC within 1 week Total time spent on discharge = 35 minutes This includes examination of the patient, discharge planning, medication reconciliation, and communication with other providers. Discharge Instructions Discharge Instructions Date of Service Apr 19, 2017. Admission Reason for Admission: Abdominal Pain Discharge Discharge Diagnosis / Problem: Chronic abdominal pain, Recurrent urinary tract infections, Hematuria Discharge Goals Goal(s): Decrease discomfort, Improve function, Improve disease control Activity Recommendations Activity Limitations: resume your previous activity . Instructions / Follow-Up Instructions / Follow-Up Discharge home today with home health Call your primary care provider to schedule follow up appointment within 1 week OK to discharge with peripheral line for IV rocephin infusion Complete 7 days of IV Rocephin Complete the course of Diflucan Home nurse to change the peripheral line after 3 to 4 days Follow up with Gynecology (please call to schedule follow up appointment) Follow up with hematology Check CBC within 1 week Current Hospital Diet Patient's current hospital diet: Regular Diet Discharge Diet Recommended Diet: Regular Diet Pending Studies Studies pending at discharge: no Medical Emergencies . Who to Call and When: Medical Emergencies: If at any time you feel your situation is an emergency, please call 911 immediately. . Non-Emergent Contact Non-Emergency issues call your: Primary Care Provider Call Non-Emergent contact if: you have a fever, your pain is not controlled, you have any medication questions . . "Provider Documentation" section prepared by [place] Good. . VTE Core Measure Inpt VTE Proph given/why not?: SCD's Additional Copies To Xuan Golden .,SAUL
== END 2017-04-19 18:42 | disposition home or self-care (01) ==
LOC: C.EDB 20:52 → C.MS4W 04-17 03:06 → ENRESERV 04-17 03:14
PROVIDERS: ADMIT Internal Medicine; ATTEND Internal Medicine
DX: N39.0 Urinary tract infection, site not specified (principal); D69.6 Thrombocytopenia, unspecified; M79.7 Fibromyalgia; I73.00 Raynaud's syndrome without gangrene; K50.90 Crohn's disease, unspecified, without complications; F41.9 Anxiety disorder, unspecified; F32.9 Major depressive disorder, single episode, unspecified; Z93.2 Ileostomy status; Z79.899 Other long term (current) drug therapy; G89.29 Other chronic pain; R10.9 Unspecified abdominal pain

== ENCOUNTER 2017-06-04 20:52 | Emergency (ER) | payer BC, OTHER ==
[~2017-06-04] VITALS: Ht 172.7 cm; Wt 52.4 kg
[~2017-06-04 20:52] MED LIST changes: +DFL100 PO; -LDDP5 EX; -METO-157 PO
[2017-06-04 21:18] VITALS: TEMP 37.1
[2017-06-04] MEDS ORDERED: PHEN-876 PO (21:23)
[2017-06-04] MEDS ORDERED: SODIUM CHLORIDE 0.9% 1000ML 1,000 ML IV STA (21:40)
[2017-06-04] MEDS ORDERED: PROCHLORPERAZINE 5 MG/ML 2 ML VIAL IV STA (21:40)
[2017-06-04] MEDS ORDERED: MoRPHine SULFATE 4 MG/ML 1 ML CARP\\VIAL IV STA ×2 (21:40→23:24)
[2017-06-04 21:52] VITALS: Ht 172.7 cm; Wt 52.4 kg
[2017-06-04 21:57] VITALS: O2SAT 98
[2017-06-04] MEDS ORDERED: LEVO1TAB33 PO (22:24)
[2017-06-04] MEDS ORDERED: METO-157 PO (22:26)
[2017-06-04 22:30] LABS: HEMATOCRIT 37.2 % (37-47); MEAN CELL VOLUME 82.7 fL (80-100); MEAN CORPUSCULAR HEMOGLOBIN 27.3 pg (25-34); MEAN CORPUSCULAR HGB CONC 33.1 g/dl (32-36); WHITE BLOOD COUNT 2.96 K/uL (4.8-10.8)
[2017-06-04 22:34] LABS: MEAN PLATELET VOLUME 9.4 fL (7.4-10.4); PLATELET COUNT 69 K/uL (130-400)
[2017-06-04 22:37] LABS: URINE BILIRUBIN NEG (NEG); URINE NITRITE NEG (NEG); URINE PH 5.5 (4.5-7.5); URINE SPECIFIC GRAVITY 1.019 (1.000-1.030); UROBILINOGEN NEG (NEG); ZZUR CULT IF INDIC CLEAN CATCH NO
[2017-06-04 22:38] LABS: MANUAL MICROSCOPIC REQUIRED? NO; REVIEW REQ? NO; URINE APPEARANCE CLOUDY (CLEAR); URINE COLOR LIGHT RED
[2017-06-04 22:42] LABS: PARTIAL THROMBOPLASTIN RATIO 1.1; PROTHROMBIN TIME (PATIENT) 10.9 SECONDS (9.0-12.0)
[2017-06-04 22:49] LABS: BASO % 0.3 %; BASO ABS # 0.01 K/uL (0-0.2); COMPLETE YES; EOS % 1.4 %; LYMPH % 33.8 %; MONO % 9.5 %; OVALOCYTES 1+
[2017-06-04 22:50] LABS: CALCIUM 9.1 mg/dl (8.5-10.1); CREATININE 0.98 mg/dl (0.60-1.20); POTASSIUM 3.4 mmol/L (3.5-5.1)
[2017-06-04 22:53] LABS: ALB/GLOB RATIO 1.3 (0.9-2)
[2017-06-04] MEDS ORDERED: POTASSIUM CHLORIDE 10 MEQ TABCR PO STA (23:42)
[2017-06-05 00:36] VITALS: BP 99/58; PULSE 70; O2SAT 97
--- NOTE | 2017-06-05 04:23 | EMERGENCY ROOM VISIT NOTE ---
History First contact with patient: 21:26 Chief Complaint: ABDOMINAL PAIN Stated Complaint: EXTREME PAIN, VAGINAL BLEEDING, LOW PLATELETS Nursing Triage Summary: pt hx endometriosis, states vaginal bleeding at this time, urine is bloody from sample. Pt states pain and abdominal cramping. History of Present Illness The patient is a 36 year old female who presents to the Emergency Room with complaints of superpubic cramping with vaginal bleeding since 4:30 PM who has a history of severe endometriosis. She describes pain as cramping, ranging in severity 8 out of 10. Nothing makes it better or worse. It does not radiate. Patient states she has a history of thrombocytopenia. Her platelets last month were 53,000. Patient had a full hysterectomy. She had a arteriogram done last month at [place] that showed no AV malformation in her vaginal area. 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 Patient states she was told her she had heavy vaginal bleeding to come to the ER. She is currently on Levaquin for sinus infection by the family care doctor. Patient denies chest pain, dyspnea, fever , chills, vomiting, diarrhea, urinary symptoms. Review of Systems See HPI for pertinent positives & negatives. A total of 10 systems reviewed and were otherwise negative. Past Medical/Surgical History Medical Problems: (1) Anxiety (2) Colon dysplasia (3) Crohn's colitis (4) Depression (5) Endometriosis (6) Fibromyalgia (7) History of iron deficiency anemia (8) Hypotension (9) Ileostomy in place (10) Interstitial cystitis (11) Migraine (12) Raynauds disease (13) SBO (small bowel obstruction) (14) Thrombocytopenia Surgical Problems: (1) H/O colonoscopy (2) H/O esophagogastroduodenoscopy (3) H/O laparoscopy (4) H/O total colectomy (5) S/P appendectomy (6) S/P hysterectomy Family History Diabetes mellitus FH: depression FH: heart disease FHx: cancer FHx: gallbladder disease Hypertension Social History Smoking Status: Never Smoker Alcohol Use: occasionally Drug Use: none Marital Status: Occupation Status: disabled Current/Historical Medications Scheduled Budesonide (Entocort Ec), 9 MG PO DAILY Fluoxetine (Prozac), 40 MG PO HS Fluoxetine Hcl (Prozac), 20 MG PO HS Fluticasone Propionate (Nasal) (Flonase Allergy Relief ), 2 SPRAYS ROSARIO DAILY Levofloxacin (Levaquin), 500 MG PO DAILY Loratadine (Claritin), 10 MG PO DAILY Montelukast Sodium (Singulair), 10 MG PO DAILY Pantoprazole (Protonix), 40 MG PO BID Pentosan Polysulfate Sodium (Elmiron), 300 MG PO BID Topiramate (Topamax), 100 MG PO BID Scheduled PRN Acetaminophen-Caffeine (Excedrin Tension Headache), 2 TAB PO UD PRN for Headache Baclofen (Lioresal), 10 MG PO TID PRN for Hiccups Diphenhy/Alum/Mag/Sucralfa (Magic Swizzle - Diphenhy/Alum/Mag/Sucralfa), 1 TSP PO Q4H PRN for UD Levalbuterol Tartrate (Levalbuterol Tartrate Hfa), 2 PUFFS INH Q4H PRN for Wheezing Lorazepam (Ativan), 0.5 MG PO TID PRN for Anxiety Metoclopramide Hcl (Reglan), 10 MG PO Q6H PRN for Nausea-Hiccups Morphine Sulfate (Morphine Sulfate Ir), 30 MG PO Q8 PRN for Pain Phenazopyridine HCl (Pyridium), 200 MG PO TID PRN for Bladder pain Prochlorperazine Maleate (Compazine), 10 MG PO TID PRN for Nausea Allergies Coded Allergies: Clarithromycin (Verified Allergy, Severe, breathing problems, 03/07/17) Hydromorphone (Verified Allergy, Intermediate, RASH, 03/07/17) pt sasy she is allergic Ondansetron (Verified Allergy, Intermediate, itching, 03/07/17) Peanut (Verified Allergy, Intermediate, Rash and itchiness, 03/07/17) Hydroxyzine (Verified Allergy, Mild, itching, 03/07/17) Adhesives (Verified Allergy, Unknown, itching, swelling, 03/07/17) Albuterol (Verified Allergy, Unknown, rash, 03/07/17) BEE STING (Unverified Allergy, Unknown, anaphylaxis, 03/07/17) Ketorolac Tromethamine (Unverified Allergy, Unknown, unknown, 03/07/17) Latex (Verified Allergy, Unknown, itching, swelling, 03/07/17) Oxycodone (Verified Allergy, Unknown, itching, 03/07/17) Barium Sulfate (Verified Adverse Reaction, Unknown, diarrhea, 03/07/17) Lobster (Verified Adverse Reaction, Unknown, nausea, diarrhea, 03/07/17) Pregabalin (Verified Adverse Reaction, Unknown, delusions, 03/07/17) Uncoded Allergies: SPLENDA (Allergy, Unknown, Nausea/Vomiting, 09/26/16) Physical Exam Vital Signs Date Time Temp Pulse Resp B/P (MAP) Pulse Ox O2 Delivery O2 Flow Rate FiO2 06/05/17 00:36 70 99/58 97 06/05/17 00:35 72 15 06/05/17 00:20 73 97 06/05/17 00:05 68 97 06/05/17 00:00 99/65 06/04/17 23:52 77 95 06/04/17 23:37 69 95 06/04/17 23:30 111/74 06/04/17 23:22 72 15 96 Room Air 06/04/17 23:10 110/66 06/04/17 22:37 83 14 06/04/17 22:24 115/74 06/04/17 22:22 98 22 06/04/17 22:07 81 28 06/04/17 22:04 83 06/04/17 21:57 98 Room Air 06/04/17 21:54 127/86 06/04/17 21:18 37.1 95 18 121/82 98 Room Air Physical Exam VITALS: Vitals are noted on the nurse's note and reviewed by myself. Vital signs stable. GENERAL: Pleasant female anxious-appearing, in no acute distress, nondiaphoretic , well-developed well-nourished. SKIN: The skin was without rashes, erythema, edema, or bruising. There is no tenting of the skin. Capillary reflex less than 2 seconds. HEAD: Normocephalic atraumatic. EARS: External auditory canals clear, ear tubes in place bilaterally without erythema or effusion bilaterally. EYES: Pupils equal round and reactive to light and accommodation. Conjunctivae without injection, sclerae without icterus. Extraocular movements intact. NOSE: Patent, turbinates without inflammation or discharge. No sinus tenderness. MOUTH: Mucous membranes moist. Pharynx without erythema or exudate. Uvula midline. Airway patent. Tongue does not deviate. NECK: Supple without nuchal rigidity. No lymphadenopathy. No thyromegaly. Cervical spine is nontender. No JVD. HEART: Regular rate and rhythm without murmurs gallops or rubs. LUNGS: Clear to auscultation bilaterally without wheezes, rales or rhonchi. No dullness to percussion. No retractions or accessory muscle use. ABDOMEN: Positive bowel sounds x 4. Normal tympanic percussion. Soft, tender to palpation suprapubic region, without masses or organomegaly. Randolph sign negative. No guarding or rebound tenderness. No CVA tenderness exam: Normal external female genitalia, minimal blood in the vault with no active bleeding, no signs of trauma. Vaginal atrophy. 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 MUSCULOSKELETAL: No muscle atrophy, erythema, or edema noted. NEURO: Patient was alert and oriented to person place and time. Normal sensation to light and sharp touch. No focal neurological deficits. Medical Decision & Procedures Laboratory Results 06/04/17 22:10 Red Blood Count 4.50, Mean Corpuscular Volume 82.7, Mean Corpuscular Hemoglobin 27.3, Mean Corpuscular Hemoglobin Concent 33.1, Mean Platelet Volume 9.4, Neutrophils (%) (Auto) 55.0, Lymphocytes (%) (Auto) 33.8, Monocytes (%) (Auto) 9.5, Eosinophils (%) (Auto) 1.4, Basophils (%) (Auto) 0.3, Neutrophils # (Auto) 1.63, Lymphocytes # (Auto) 1.00, Monocytes # (Auto) 0.28, Eosinophils # (Auto) 0.04, Basophils # (Auto) 0.01 06/04/17 22:10 Test 06/04/17 21:58 06/04/17 22:10 Urine Color LIGHT RED Urine Appearance CLOUDY (CLEAR) Urine pH 5.5 (4.5-7.5) Urine Specific [place] 1.019 (1.000-1.030) Urine Protein NEG (NEG) Urine Glucose (UA) NEG (NEG) Urine Ketones NEG (NEG) Urine Occult Blood 3+ (NEG) Urine Nitrite NEG (NEG) Urine Bilirubin NEG (NEG) Urine Urobilinogen NEG (NEG) Urine Leukocyte Esterase TRACE (NEG) Urine WBC (Auto) 5-10 /hpf (0-5) Urine RBC (Auto) >30 /hpf (0-4) Urine Hyaline Casts (Auto) 0 /lpf (0-5) Urine Epithelial Cells (Auto) 10-20 /lpf (0-5) Urine Bacteria (Auto) NEG (NEG) White Blood Count 2.96 K/uL (4.8-10.8) Red Blood Count 4.50 M/uL (4.2-5.4) Hemoglobin 12.3 g/dL (12.0-16.0) Hematocrit 37.2 % (37-47) Mean Corpuscular Volume 82.7 fL (80-100) Mean Corpuscular Hemoglobin 27.3 pg (25-34) Mean Corpuscular Hemoglobin Concent 33.1 g/dl (32-36) Platelet Count 69 K/uL (130-400) Mean Platelet Volume 9.4 fL (7.4-10.4) Neutrophils (%) (Auto) 55.0 % Lymphocytes (%) (Auto) 33.8 % Monocytes (%) (Auto) 9.5 % Eosinophils (%) (Auto) 1.4 % Basophils (%) (Auto) 0.3 % Neutrophils # (Auto) 1.63 K/uL (1.4-6.5) Lymphocytes # (Auto) 1.00 K/uL (1.2-3.4) Monocytes # (Auto) 0.28 K/uL (0.11-0.59) Eosinophils # (Auto) 0.04 K/uL (0-0.5) Basophils # (Auto) 0.01 K/uL (0-0.2) RDW Standard Deviation 40.6 fL (36.4-46.3) RDW Coefficient of Variation 13.4 % (11.5-14.5) Immature Granulocyte % (Auto) 0.0 % Immature Granulocyte # (Auto) 0.00 K/uL (0.00-0.02) Ovalocytes 1+ Prothrombin Time 10.9 SECONDS (9.0-12.0) Prothromb Time International Ratio 1.0 (0.9-1.1) Activated Partial Thromboplast Time 28.1 SECONDS (21.0-31.0) Partial Thromboplastin Ratio 1.1 Anion Gap 7.0 mmol/L (3-11) Est Creatinine Clear Calc Drug Dose 65.0 ml/min Estimated GFR () 85.4 Estimated GFR (Non- 73.7 BUN/Creatinine Ratio 20.0 (10-20) Calcium Level 9.1 mg/dl (8.5-10.1) Total Bilirubin 0.5 mg/dl (0.2-1) Aspartate Amino Transf (AST/SGOT) 13 U/L (15-37) Alanine Aminotransferase (ALT/SGPT) 34 U/L (12-78) Alkaline Phosphatase 97 U/L (45-117) Total Protein 6.7 gm/dl (6.4-8.2) Albumin 3.8 gm/dl (3.4-5.0) Globulin 2.9 gm/dl (2.5-4.0) Albumin/Globulin Ratio 1.3 (0.9-2) Medications Administered Medications (Trade) Dose Ordered Sig/Tamar Route Start Time Stop Time Status Last Admin Dose Admin Sodium Chloride 1,000 ml @ 999 mls/hr Q1H1M STAT IV 06/04/17 21:40 06/04/17 22:40 DC 06/04/17 22:23 999 MLS/HR Morphine Sulfate (MoRPHine SULFATE INJ) 4 mg NOW STAT IV 06/04/17 21:40 06/04/17 21:44 DC 06/04/17 22:16 4 MG Prochlorperazine Edisylate (Compazine Inj) 10 mg NOW STAT IV 06/04/17 21:40 06/04/17 21:44 DC 06/04/17 22:16 10 MG Morphine Sulfate (MoRPHine SULFATE INJ) 4 mg NOW STAT IV 06/04/17 23:24 06/04/17 23:25 DC 06/04/17 23:29 4 MG Potassium Chloride (Klor-Con M10) 10 meq NOW STAT PO 06/04/17 23:42 06/04/17 23:43 DC 06/05/17 00:02 10 MEQ ED Course Prior records/ancillary studies reviewed. Triage Nursing notes reviewed. Additional history obtained from family The patient's history was concerning for vaginal bleeding with suprapubic cramping Differential diagnosis: Etiologies such as coagulopathy, abnormal vaginal bleeding, vaginal tear, endometriosis, appendicitis, diverticulitis, PUD, biliary pathology, UTI, pancreatitis, obstruction, mesenteric ischemia, aortic pathology, infections, inflammatory bowel disease, renal colic, as well as others were entertained. Physical examination findings: As above. ER treatment provided: IV fluids, morphine On reassessment the patient felt better. Diagnostics interpreted by me: The labs revealed stable H&H. Improvement platelet count per chart review Imaging studies: Unremarkable ultrasound of the pelvis per stat radiology I did obtain the records of her she and patient had a normal arteriogram last month. There was no AV malformation of her vaginal area. Consultation: A consultation was placed with the JEWELRY DRILLING MACHINE OPERATOR, Dr. Foster. The case was discussed and diagnostics were reviewed. She recommends discharging the patient with follow-up tomorrow with OB if symptoms persist or call for follow-up appointment if symptoms have resolved. Exam and history seem consistent with abnormal vaginal bleeding that is now resolved. Patient has stable H&H. Platelet count is improving. Unremarkable ultrasound. She is advised if her bleeding continues to see OB tomorrow morning at 9 AM or call for an appointment if symptoms have resolved. She is advised to return to the ER immediately for heavy bleeding, fevers, weakness, worsening signs or symptoms or as needed. Patient did not have acute abdomen on exam. She is well-appearing. By the evaluation outlined above emergent etiologies such as appendicitis, diverticulitis, PUD, biliary pathology, UTI, pancreatitis, obstruction, mesenteric ischemia, aortic pathology, infections, inflammatory bowel disease, renal colic, as well as others were deemed relatively unlikely. The pt informed about the findings as listed above. All questions were answered and pleased with the treatment. Return instructions were outlined and the patient was discharged in stable condition. Referral: The patient was referred back to their JEWELRY DRILLING MACHINE OPERATOR tomorrow for a recheck of the current condition. Case reviewed with my attending Medical Decision As above Impression Primary Impression: Abnormal vaginal bleeding Departure Information Dispostion Home / Self-Care Condition GOOD Forms Call Back Authorization, HOME CARE DOCUMENTATION FORM, IMPORTANT VISIT INFORMATION Patient Instructions My [facility], ED Bleed Irregular Vaginal Additional Instructions DO NOT drive, drink alcohol, operate machinery, or perform dangerous activities today. You were given medications in the ER that can affect your ability to safely function or operate a vehicle. Continue your Compazine and morphine as directed by your family care doctor for your nausea and pain. Acetaminophen(Tylenol) may be used for fever or pain. Use 1000mg every six hours as needed. Avoid using more than 3000mg in a 24 hour period. Rest and drink plenty of fluids as tolerated. Slow sips of water or sports drinks are recommended instead of large amounts all at once. Continue current medications. Return to the ER immediately for worsening or persistent vaginal bleeding, abdominal pain, vomiting, fevers, chest pains, difficulty breathing, black or bloody stools, worsening of your condition, or as needed. Follow up with your JEWELRY DRILLING MACHINE OPERATOR tomorrow morning at 9 AM if you are currently bleeding. If your bleeding has resolved then call tomorrow for follow-up appointment this week.
--- NOTE | 2017-06-05 06:28 | DIAGNOSTIC IMAGING REPORT ---
PELVIC ULTRASOUND CLINICAL HISTORY: Vaginal bleeding and severe pain. COMPARISON STUDY: CT of the abdomen and pelvis April 17, 2017. TECHNIQUE: Transabdominal and transvaginal sonography of the pelvis was performed. FINDINGS: The uterus is surgically absent. The ovaries are not visualized. There is no free fluid within the pelvis. No pelvic masses are identified by sonography. IMPRESSION: 1. No abnormality within the pelvis status post hysterectomy. 2. Nonvisualization of the ovaries which could be correlated with surgical history. Electronically signed by: Solomon Manriquez M.D. 06/05/2017 6:26 AM Dictated Date/Time: 06/05/2017 6:25 AM
== END 2017-06-05 00:38 | disposition home or self-care (01) ==
LOC: C.EDB 20:55
DX: N93.8 Other specified abnormal uterine and vaginal bleeding (principal); F32.9 Major depressive disorder, single episode, unspecified; F41.9 Anxiety disorder, unspecified; D50.9 Iron deficiency anemia, unspecified; K58.9 Irritable bowel syndrome, unspecified; Z93.2 Ileostomy status; Z90.49 Acquired absence of other specified parts of digestive tract; Z90.710 Acquired absence of both cervix and uterus; Z79.899 Other long term (current) drug therapy; Z88.5 Allergy status to narcotic agent; Z88.8 Allergy status to other drugs, medicaments and biological substances; Z91.010 Allergy to peanuts; Z91.018 Allergy to other foods; Z91.030 Bee allergy status; Z83.3 Family history of diabetes mellitus; Z81.8 Family history of other mental and behavioral disorders; Z82.49 Family history of ischemic heart disease and other diseases of the circulatory system; Z80.9 Family history of malignant neoplasm, unspecified; Z83.79 Family history of other diseases of the digestive system

== ENCOUNTER 2017-07-04 17:30 | Emergency (ER) | payer BC, OTHER ==
[~2017-07-04] VITALS: Ht 172.7 cm; Wt 54.7 kg
[~2017-07-04 17:30] MED LIST changes: -ALPR-411 PO
[2017-07-04 17:33] VITALS: TEMP 36.6; Ht 172.7 cm; Wt 54.7 kg
--- NOTE | 2017-07-04 17:53 | EMERGENCY ROOM VISIT NOTE ---
History Report prepared by Carlo: Kal Rivera Under the Supervision of: Dr. Raquel Pillai D.O. First contact with patient: 17:37 Chief Complaint: URINARY SYMPTOMS Stated Complaint: FREQUENT UTI, SINUS/EAR INFECTIONS History of Present Illness The patient is a 36 year old female with a history of frequent UTI's who presents to the Emergency Room with complaints of persistent urinary symptoms that started a few days ago. She says that she has notes from Dr. Arredondo's office (urology) for labs that she wants the patient to have done. The patient states that she also has a history of frequent sinus/ear infections, and has been treated with 3 antibiotics in a row recently, which she says have not been working. The patient notes that she has a lot of antibiotic resistance, and adds that she has an ostomy, so she has absorption problems. The patient says that she was told that the next step would be IV Rocephin, which she has been treated with once in the past through infectious disease for her frequent UTI' s. She states that she has had some symptoms on and off for the past few weeks, but a couple days ago is when she noticed her symptoms becoming constant. The patient says that her symptoms include fluid coming from her ears, swollen glands, chills, sweats, and low abdominal pain. She notes that she has pain and burning with urination, with an increased sense of urgency. She saw a bit of blood once when wiping, and once in the toilet. She notes that her temperature tends to run low, but she has had a temperature around 98 the past few days, which is a low-grade fever for her. Patient states her current symptoms are most consistent with UTIs. Review of EMR shows multiple prior urine cultures that grew out Escherichia coli , single culture with Klebsiella. Most of the cultures reveal a consistent pattern of resistance, as well as sensitivity to IV antibiotics. Patient's cultures do show sensitivity to Macrobid however patient states this never treats her infection adequately. Source of History: patient Onset: A few days ago Position: other (global - urinary symptoms) Symptom Intensity: pain/burning with urination, increased urgency, some blood Quality: other (history of frequent UTI's) Timing: other (persistent) Associated Symptoms: + fevers (low grade for her), + chills, + diaphoresis, + abdominal pain Note: Associated symptoms: Fluid coming from ears. Swollen glands. Review of Systems See HPI for pertinent positives & negatives. A total of 10 systems reviewed and were otherwise negative. Past Medical & Surgical Medical Problems: (1) Anxiety (2) Colon dysplasia (3) Crohn's colitis (4) Depression (5) Endometriosis (6) Fibromyalgia (7) History of iron deficiency anemia (8) Hypotension (9) Ileostomy in place (10) Interstitial cystitis (11) Migraine (12) Raynauds disease (13) SBO (small bowel obstruction) (14) Thrombocytopenia Surgical Problems: (1) H/O colonoscopy (2) H/O esophagogastroduodenoscopy (3) H/O laparoscopy (4) H/O total colectomy (5) S/P appendectomy (6) S/P hysterectomy Family History Diabetes mellitus FH: depression FH: heart disease FHx: cancer FHx: gallbladder disease Hypertension Social History Smoking Status: Never Smoker Alcohol Use: occasionally Drug Use: none Marital Status: Occupation Status: disabled Current/Historical Medications Scheduled Budesonide (Entocort Ec), 9 MG PO DAILY Fluoxetine (Prozac), 40 MG PO HS Fluoxetine Hcl (Prozac), 20 MG PO HS Fluticasone Propionate (Nasal) (Flonase Allergy Relief ), 2 SPRAYS ROSARIO DAILY Loratadine (Claritin), 10 MG PO DAILY Montelukast Sodium (Singulair), 10 MG PO DAILY Pantoprazole (Protonix), 40 MG PO BID Pentosan Polysulfate Sodium (Elmiron), 300 MG PO BID Scheduled PRN Alprazolam (Xanax), 0.5 MG PO BID PRN for Anxiety Baclofen (Lioresal), 10 MG PO TID PRN for Hiccups Diphenhy/Alum/Mag/Sucralfa (Magic Swizzle - Diphenhy/Alum/Mag/Sucralfa), 1 TSP PO Q4H PRN for UD Levalbuterol Tartrate (Levalbuterol Tartrate Hfa), 2 PUFFS INH Q4H PRN for Wheezing Metoclopramide Hcl (Reglan), 10 MG PO Q6H PRN for Nausea-Hiccups Morphine Sulfate (Morphine Sulfate Ir), 30 MG PO Q8 PRN for Pain Phenazopyridine HCl (Pyridium), 200 MG PO TID PRN for Bladder pain Prochlorperazine Maleate (Compazine), 10 MG PO TID PRN for Nausea Allergies Coded Allergies: Clarithromycin (Verified Allergy, Severe, breathing problems, 07/04/17) Hydromorphone (Verified Allergy, Intermediate, RASH, 07/04/17) pt sasy she is allergic Ondansetron (Verified Allergy, Intermediate, itching, 07/04/17) Peanut (Verified Allergy, Intermediate, Rash and itchiness, 07/04/17) Hydroxyzine (Verified Allergy, Mild, itching, 07/04/17) Adhesives (Verified Allergy, Unknown, itching, swelling, 07/04/17) Albuterol (Verified Allergy, Unknown, rash, 07/04/17) BEE STING (Unverified Allergy, Unknown, anaphylaxis, 07/04/17) Ketorolac Tromethamine (Unverified Allergy, Unknown, unknown, 07/04/17) Latex (Verified Allergy, Unknown, itching, swelling, 07/04/17) Oxycodone (Verified Allergy, Unknown, itching, 07/04/17) Barium Sulfate (Verified Adverse Reaction, Unknown, diarrhea, 07/04/17) Lobster (Verified Adverse Reaction, Unknown, nausea, diarrhea, 07/04/17) Pregabalin (Verified Adverse Reaction, Unknown, delusions, 07/04/17) Uncoded Allergies: SPLENDA (Allergy, Unknown, Nausea/Vomiting, 09/26/16) Physical Exam Vital Signs Date Time Temp Pulse Resp B/P (MAP) Pulse Ox O2 Delivery O2 Flow Rate FiO2 07/04/17 20:58 70 16 135/81 97 07/04/17 19:43 72 18 123/76 98 Room Air 07/04/17 17:33 36.6 80 16 148/90 97 Room Air Physical Exam GENERAL: alert, well appearing, well nourished, no distress, non-toxic EYE EXAM: normal conjunctiva, PERRL and EOM's grossly intact OROPHARYNX: no exudate, no erythema, lips, buccal mucosa, and tongue normal and mucous membranes are moist NECK: supple, no nuchal rigidity, no adenopathy, non-tender LUNGS: Clear to auscultation. Normal chest wall mechanics HEART: no murmurs, S1 normal and S2 normal ABDOMEN: Suprapubic discomfort. Abdomen soft, normo-active bowel sounds, no masses, no rebound or guarding. No organomegaly. BACK: Back is symmetrical on inspection and there is no deformity, no midline tenderness, no CVA tenderness. SKIN: no rashes and no bruising UPPER EXTREMITIES: upper extremities are grossly normal. LOWER EXTREMITIES: No pitting edema. NEURO EXAM: Normal sensorium, cranial nerves II-XII grossly intact, normal speech, no gross weakness of arms, no gross weakness of legs. Medical Decision & Procedures Laboratory Results 07/04/17 18:30 Red Blood Count 4.81, Mean Corpuscular Volume 84.6, Mean Corpuscular Hemoglobin 26.8, Mean Corpuscular Hemoglobin Concent 31.7, Mean Platelet Volume 9.5, Neutrophils (%) (Auto) 62.0, Lymphocytes (%) (Auto) 29.1, Monocytes (%) (Auto) 7.4, Eosinophils (%) (Auto) 1.2, Basophils (%) (Auto) 0.0, Neutrophils # (Auto) 2.09, Lymphocytes # (Auto) 0.98, Monocytes # (Auto) 0.25, Eosinophils # (Auto) 0.04, Basophils # (Auto) 0.00 07/04/17 18:30 Test 07/04/17 00:00 07/04/17 18:30 Urine Color ORANGE Urine Appearance CLOUDY (CLEAR) Urine pH (4.5-7.5) Urine Specific Orwell > 1.030 (1.000-1.030) Urine Protein NEG (NEG) Urine Glucose (UA) (NEG) Urine Ketones (NEG) Urine Occult Blood (NEG) Urine Nitrite (NEG) Urine Bilirubin (NEG) Urine Urobilinogen (NEG) Urine Leukocyte Esterase (NEG) Urine RBC 0-4 /hpf (0-4) Urine WBC >30 /hpf (0-5) Urine Epithelial Cells 5-10 /lpf (0-5) Urine Bacteria 1+ (NEG) Urine Yeast PRESENT (NONE PRSENT) White Blood Count 3.37 K/uL (4.8-10.8) Red Blood Count 4.81 M/uL (4.2-5.4) Hemoglobin 12.9 g/dL (12.0-16.0) Hematocrit 40.7 % (37-47) Mean Corpuscular Volume 84.6 fL (80-100) Mean Corpuscular Hemoglobin 26.8 pg (25-34) Mean Corpuscular Hemoglobin Concent 31.7 g/dl (32-36) Platelet Count 74 K/uL (130-400) Mean Platelet Volume 9.5 fL (7.4-10.4) Neutrophils (%) (Auto) 62.0 % Lymphocytes (%) (Auto) 29.1 % Monocytes (%) (Auto) 7.4 % Eosinophils (%) (Auto) 1.2 % Basophils (%) (Auto) 0.0 % Neutrophils # (Auto) 2.09 K/uL (1.4-6.5) Lymphocytes # (Auto) 0.98 K/uL (1.2-3.4) Monocytes # (Auto) 0.25 K/uL (0.11-0.59) Eosinophils # (Auto) 0.04 K/uL (0-0.5) Basophils # (Auto) 0.00 K/uL (0-0.2) RDW Standard Deviation 41.0 fL (36.4-46.3) RDW Coefficient of Variation 13.3 % (11.5-14.5) Immature Granulocyte % (Auto) 0.3 % Immature Granulocyte # (Auto) 0.01 K/uL (0.00-0.02) Anion Gap 8.0 mmol/L (3-11) Est Creatinine Clear Calc Drug Dose 70.8 ml/min Estimated GFR () 89.8 Estimated GFR (Non- 77.5 BUN/Creatinine Ratio 16.9 (10-20) Calcium Level 9.3 mg/dl (8.5-10.1) Magnesium Level 2.0 mg/dl (1.8-2.4) Total Bilirubin 0.7 mg/dl (0.2-1) Aspartate Amino Transf (AST/SGOT) 25 U/L (15-37) Alanine Aminotransferase (ALT/SGPT) 47 U/L (12-78) Alkaline Phosphatase 95 U/L (45-117) Total Protein 7.1 gm/dl (6.4-8.2) Albumin 3.9 gm/dl (3.4-5.0) Globulin 3.2 gm/dl (2.5-4.0) Albumin/Globulin Ratio 1.2 (0.9-2) Vitamin B12 Level 448 pg/mL (211-911) Folate 10.37 ng/mL (>5.38) Laboratory results per my review. Medications Administered Medications (Trade) Dose Ordered Sig/Tamar Route Start Time Stop Time Status Last Admin Dose Admin Ceftriaxone Sodium (Rocephin Inj) 1 gm NOW STAT IV 07/04/17 20:15 07/04/17 20:16 DC 07/04/17 20:24 1 GM ED Course 1739: The patient was evaluated in room A11B. A complete history and physical exam was performed. 1944: I reevaluated and updated the patient. 2014: I discussed the patient with pharmacy in the ED as well as ED case management. 2014: Ordered Rocephin Inj 1 gm IV. 2049: Upon reevaluation, the patient is feeling better. I discussed the findings and the treatment plan with the patient. She verbalizes agreement and understanding. She was discharged home. Patient has appointment tomorrow with her family doctor, and has previously needed home healthcare for IV antibiotics. Case management will follow-up the patient tomorrow to assure that additional antibiotic treatment is arranged given the IV antibiotics will be needed. She has previously seen infectious disease, and advised that they should discuss with her family doctor which anabiotic to be on. Patient states she has previously seen Dr. Gerardo of urology but at this time Dr. Gerardo is no longer seeing her and have referred her to [facility] for which she has an appointment in July. Patient comfortable going home at this time. Symptoms consistent with prior UTI. Patient's leukopenia chronic. Doubt bacteremia/sepsis. Opted against additional imaging in the patient as she had four abdominal and pelvis CAT scans this year. Medical Decision Differential diagnosis: Etiologies such as renal colic, appendicitis, diverticulitis, mesenteric ischemia, aortic pathology, infections, inflammatory bowel disease, PUD, biliary pathology, UTI, as well as others were entertained. Patient's history and presentation most concerning with recurrent UTI. Reportedly patient with multiple allergies to antibiotics and concerning pattern of resistance given prior cultures. Significant time spent in discussion with pharmacy and case management and attempting to find an oral alternative for the patient. Patient well-appearing here, did not feel any resistant or persistent ear nose and throat infections including sinusitis or mastoiditis. Patient given dose of IV Rocephin here in case management arranging outpatient follow-up with family doctor and home care for additional IV antibiotics. Discussed with patient she needs close follow-up with family doctor, she states she has an appointment tomorrow. Discussed with patient's she also needs to follow-up with infectious disease and keep her appointment with [facility] for additional urologic evaluation. I do not suspect bacteremia/sepsis. Discussed imaging at bedside, did not feel patient's presentation warranted repeat CAT scan if she is every had 4 CAT scans of her abdomen and pelvis earlier this year. Patient well-appearing at the time of discharge, vital signs stable. Medication Reconcilliation Current Medication List: was personally reviewed by me Blood Pressure Screening Patient's blood pressure: Elevated blood pressure Blood pressure disposition: Elevated BP felt to be situational Impression Primary Impression: Symptoms of urinary tract infection Additional Impression: Abdominal pain Scribe Attestation The scribe's documentation has been prepared under my direction and personally reviewed by me in its entirety. I confirm that the note above accurately reflects all work, treatment, procedures, and medical decision making performed by me. Departure Information Dispostion Home / Self-Care Referrals Xuan Golden .SAUL (PCP) Patient Instructions My [facility] Additional Instructions Please keep your appointment tomorrow with your family doctor. Please discuss with them contacting your infectious disease specialist to discuss antibiotics given your history of resistant organisms. Please continue regular medications as prescribed. You may eat and drink normally. If you develop fevers, worsening pain, vomiting, worsening pain with urination, notice a change in your stools, or you have any other new or concerning symptoms, please return to the emergency room. Please talk with them about home health administration of additional IV antibiotics. Problem Qualifiers Additional Impression: Abdominal pain Abdominal location: unspecified location Qualified Codes: R10.9 - Unspecified abdominal pain
[2017-07-04] MEDS ORDERED: ALPR-411 PO (18:13)
[2017-07-04 18:46] LABS: HEMATOCRIT 40.7 % (37-47); MEAN CELL VOLUME 84.6 fL (80-100); MEAN CORPUSCULAR HEMOGLOBIN 26.8 pg (25-34); MEAN CORPUSCULAR HGB CONC 31.7 g/dl (32-36); RED BLOOD COUNT 4.81 M/uL (4.2-5.4); WHITE BLOOD COUNT 3.37 K/uL (4.8-10.8)
[2017-07-04 18:48] LABS: COMPLETE YES; EOS % 1.2 %; IG% 0.3 %; LYMPH % 29.1 %; LYMPH ABS # 0.98 K/uL (1.2-3.4); MEAN PLATELET VOLUME 9.5 fL (7.4-10.4); MONO % 7.4 %; PLATELET COUNT 74 K/uL (130-400)
[2017-07-04 18:48] LABS: MANUAL MICROSCOPIC REQUIRED? YES; REVIEW REQ? NO; SULFASALICYLIC ACID NEG (NEG); URINE APPEARANCE CLOUDY (CLEAR); URINE COLOR ORANGE
[2017-07-04 18:50] LABS: URINE SPECIFIC GRAVITY > 1.030 (1.000-1.030)
[2017-07-04 18:53] LABS: URINE BACTERIA 1+ (NEG); URINE RBC 0-4 /hpf (0-4); URINE WBC >30 /hpf (0-5)
[2017-07-04 18:55] LABS: ZZUR CULT IF INDIC CLEAN CATCH YES
[2017-07-04 19:05] LABS: BUN/CREATININE RATIO 16.9 (10-20); CALCIUM 9.3 mg/dl (8.5-10.1); CREATININE 0.94 mg/dl (0.60-1.20); POTASSIUM 3.4 mmol/L (3.5-5.1)
[2017-07-04 19:08] LABS: ALB/GLOB RATIO 1.2 (0.9-2)
[2017-07-04] MEDS ORDERED: CEFTRIAXONE SOD INJ 1 GM ADDVIAL IV STA (20:15)
[2017-07-04 20:58] VITALS: BP 135/81; PULSE 70; O2SAT 97
== END 2017-07-04 20:59 | disposition home or self-care (01) ==
LOC: C.EDB 17:32 → C.EDA 20:59
DX: R30.9 Painful micturition, unspecified (principal); R39.15 Urgency of urination; R10.30 Lower abdominal pain, unspecified; D72.819 Decreased white blood cell count, unspecified; F41.9 Anxiety disorder, unspecified; F32.9 Major depressive disorder, single episode, unspecified; K50.90 Crohn's disease, unspecified, without complications; M79.7 Fibromyalgia; I73.00 Raynaud's syndrome without gangrene; D69.6 Thrombocytopenia, unspecified; Z87.440 Personal history of urinary (tract) infections; Z93.2 Ileostomy status; Z90.49 Acquired absence of other specified parts of digestive tract; Z90.710 Acquired absence of both cervix and uterus; Z83.3 Family history of diabetes mellitus; Z82.49 Family history of ischemic heart disease and other diseases of the circulatory system; Z81.8 Family history of other mental and behavioral disorders

== ENCOUNTER → 2017-07-04 | Outpatient (CLI) | payer BC, OTHER ==
[~2017-07-04] MED LIST changes: -ACETTAB14 PO; +ACETTAB15 PO; +ALPR-411 PO; +BUDE1CAP6 PO; -BUDE3CAP14 PO; -DFL100 PO; +LEVO1TAB33 PO; +METO-157 PO; +PHEN-876 PO
[2017-07-04 22:03] LABS: IPF 3.1 % (0.9-8.3)
[2017-07-04 22:16] LABS: FERRITIN 11.2 ng/ml (8.0-388.0); IMMUNOGLOBULN A 36.7 mg/dL (70-400); IMMUNOGLOBULN M 41.3 mg/dL (40-230)
== END | disposition home or self-care (01) ==
LOC: C.LAB 21:06
PROVIDERS: ATTEND Internal Medicine Hematology & Oncology
DX: D69.6 Thrombocytopenia, unspecified (principal); D72.819 Decreased white blood cell count, unspecified; Z86.39 Personal history of other endocrine, nutritional and metabolic disease

== ENCOUNTER 2017-07-12 21:34 | Emergency (ER) | payer BC, OTHER ==
[~2017-07-12] VITALS: Ht 172.7 cm; Wt 55.9 kg
[~2017-07-12 21:34] MED LIST changes: -ACETTAB15 PO; +ALPR-411 PO; -LEVO1TAB33 PO; -LORA-741 PO; -TOPI100T20 PO
[2017-07-12 21:42] VITALS: TEMP 36.8; Ht 172.7 cm; Wt 55.9 kg
--- NOTE | 2017-07-12 22:52 | EMERGENCY ROOM VISIT NOTE ---
History Report prepared by Carlo: Kal Rivera Under the Supervision of: Dr. Carlos Fitzgerald M.D. First contact with patient: 22:25 Chief Complaint: ABDOMINAL PAIN Stated Complaint: SEVERE STOMACH PAINS+ BACK PAIN, SWEATING, TOBAR Nursing Triage Summary: Patient states she has pain in her lower abdomen and into her lower back. Recently treated with IV and IM Rocephin. Patient has an ileostomy and states the stool is thinner than usual. History of Present Illness The patient is a 37 year old female who presents to the Emergency Room with complaints of a persistent illness that started a week ago. She says that she was seen here a week ago, and was treated for a bladder infection, and has had IM and IV Rocephin. She states that she started to feel a bit better, but she still has not completely gotten better, and her abdominal and low back pain has worsened today. The patient adds that her symptoms have included burning with urination and a bit of blood in her urine. She notes that she has had a lot of sweats today. The patient says that she has an ileostomy, and noticed that her stool has been a lot thinner today than normal. She notes a history of a hysterectomy, so she denies any chance of . The patient denies any hematochezia. She says that she has a history of C. difficile, but no history of kidney stones. Source of History: patient, family Onset: A week ago Position: other (global - illness) Quality: other (was treated here a week ago for bladder infection) Timing: other (persistent) Associated Symptoms: + diaphoresis, + abdominal pain, + back pain, + urinary symptoms, No hematochezia Note: Associated symptoms: Thinner stool than normal today. Review of Systems See HPI for pertinent positives & negatives. A total of 10 systems reviewed and were otherwise negative. Past Medical & Surgical Medical Problems: (1) Anxiety (2) Colon dysplasia (3) Crohn's colitis (4) Depression (5) Endometriosis (6) Fibromyalgia (7) History of iron deficiency anemia (8) Hypotension (9) Ileostomy in place (10) Interstitial cystitis (11) Migraine (12) Raynauds disease (13) SBO (small bowel obstruction) (14) Thrombocytopenia Surgical Problems: (1) H/O colonoscopy (2) H/O esophagogastroduodenoscopy (3) H/O laparoscopy (4) H/O total colectomy (5) S/P appendectomy (6) S/P hysterectomy Old medical records were reviewed. Nurse's notes were reviewed and I agree with. Family History Diabetes mellitus FH: depression FH: heart disease FHx: cancer FHx: gallbladder disease Hypertension Social History Smoking Status: Never Smoker Alcohol Use: occasionally Drug Use: none Marital Status: Occupation Status: disabled Current/Historical Medications Scheduled Budesonide (Entocort Ec), 9 MG PO DAILY Diphenhy/Alum/Mag/Sucralfa (Magic Swizzle - Diphenhy/Alum/Mag/Sucralfa), 1 TSP PO Q4H Fluoxetine (Prozac), 40 MG PO HS Fluoxetine Hcl (Prozac), 20 MG PO HS Fluticasone Propionate (Nasal) (Flonase Allergy Relief Ch), 2 SPRAYS ROSARIO DAILY Loratadine (Claritin), 10 MG PO DAILY Montelukast Sodium (Singulair), 10 MG PO DAILY Pantoprazole (Protonix), 40 MG PO BID Pentosan Polysulfate Sodium (Elmiron), 300 MG PO BID Scheduled PRN Alprazolam (Xanax), 0.5 MG PO BID PRN for Anxiety Baclofen (Lioresal), 10 MG PO TID PRN for Hiccups Levalbuterol Tartrate (Levalbuterol Tartrate Hfa), 2 PUFFS INH Q4H PRN for Wheezing Metoclopramide Hcl (Reglan), 10 MG PO Q6H PRN for Nausea-Hiccups Morphine Sulfate (Morphine Sulfate Ir), 30 MG PO Q8 PRN for Pain Phenazopyridine HCl (Pyridium), 200 MG PO TID PRN for Bladder pain Prochlorperazine Maleate (Compazine), 10 MG PO TID PRN for Nausea Allergies Coded Allergies: Clarithromycin (Verified Allergy, Severe, breathing problems, 07/12/17) Hydromorphone (Verified Allergy, Intermediate, RASH, 07/12/17) pt sasy she is allergic Ondansetron (Verified Allergy, Intermediate, itching, 07/12/17) Peanut (Verified Allergy, Intermediate, Rash and itchiness, 07/12/17) Hydroxyzine (Verified Allergy, Mild, itching, 07/12/17) Adhesives (Verified Allergy, Unknown, itching, swelling, 07/12/17) Albuterol (Verified Allergy, Unknown, rash, 07/12/17) BEE STING (Unverified Allergy, Unknown, anaphylaxis, 07/12/17) Ketorolac Tromethamine (Unverified Allergy, Unknown, unknown, 07/12/17) Latex (Verified Allergy, Unknown, itching, swelling, 07/12/17) Oxycodone (Verified Allergy, Unknown, itching, 07/12/17) Barium Sulfate (Verified Adverse Reaction, Unknown, diarrhea, 07/12/17) Lobster (Verified Adverse Reaction, Unknown, nausea, diarrhea, 07/12/17) Pregabalin (Verified Adverse Reaction, Unknown, delusions, 07/12/17) Uncoded Allergies: SPLENDA (Allergy, Unknown, Nausea/Vomiting, 09/26/16) Physical Exam Vital Signs Date Time Temp Pulse Resp B/P (MAP) Pulse Ox O2 Delivery O2 Flow Rate FiO2 07/13/17 01:12 64 16 128/86 97 Room Air 07/12/17 23:23 79 20 123/80 98 Room Air 07/12/17 21:42 36.8 82 16 123/77 96 Room Air Physical Exam General: Chronically ill-appearing slender young female in no acute distress. HEENT: Normal cephalic atraumatic. Pupils are equal round and reactive to light. Extraocular movements are intact. Oropharynx is pink with moist mucous membranes. No swelling of the mouth lips or tongue. Neck: Supple with a midline trachea. No meningeal signs or stiffness, no JVD or bruits. No Stridor. Chest: Clear to auscultation bilaterally. No wheezes or rhonchi. No increased work of breathing. Heart: regular rate and rhythm. Abdomen: Soft nontender, nondistended without rebound guarding or rigidity. Has ostomy in right abdomen that has a full bag. Extremities: No cyanosis clubbing or edema. No calf tenderness or assymetry Spine/Back. Non tender to palpation. No CVA tenderness Skin: Good turgor without rashes. Neurologic exam: Cranial nerves two through 12 are intact. Motor and sensation are intact and symmetrical throughout. Medical Decision & Procedures Laboratory Results 07/12/17 23:13 Red Blood Count 4.74, Mean Corpuscular Volume 85.7, Mean Corpuscular Hemoglobin 26.4, Mean Corpuscular Hemoglobin Concent 30.8, Mean Platelet Volume 9.1, Neutrophils (%) (Auto) 54.1, Lymphocytes (%) (Auto) 36.7, Monocytes (%) (Auto) 7.3, Eosinophils (%) (Auto) 1.7, Basophils (%) (Auto) 0.2, Neutrophils # (Auto) 2.21, Lymphocytes # (Auto) 1.50, Monocytes # (Auto) 0.30, Eosinophils # (Auto) 0.07, Basophils # (Auto) 0.01 07/12/17 23:13 Test 07/12/17 23:13 07/12/17 23:42 White Blood Count 4.09 K/uL (4.8-10.8) Red Blood Count 4.74 M/uL (4.2-5.4) Hemoglobin 12.5 g/dL (12.0-16.0) Hematocrit 40.6 % (37-47) Mean Corpuscular Volume 85.7 fL (80-100) Mean Corpuscular Hemoglobin 26.4 pg (25-34) Mean Corpuscular Hemoglobin Concent 30.8 g/dl (32-36) Platelet Count 75 K/uL (130-400) Mean Platelet Volume 9.1 fL (7.4-10.4) Neutrophils (%) (Auto) 54.1 % Lymphocytes (%) (Auto) 36.7 % Monocytes (%) (Auto) 7.3 % Eosinophils (%) (Auto) 1.7 % Basophils (%) (Auto) 0.2 % Neutrophils # (Auto) 2.21 K/uL (1.4-6.5) Lymphocytes # (Auto) 1.50 K/uL (1.2-3.4) Monocytes # (Auto) 0.30 K/uL (0.11-0.59) Eosinophils # (Auto) 0.07 K/uL (0-0.5) Basophils # (Auto) 0.01 K/uL (0-0.2) RDW Standard Deviation 42.7 fL (36.4-46.3) RDW Coefficient of Variation 13.6 % (11.5-14.5) Immature Granulocyte % (Auto) 0.0 % Immature Granulocyte # (Auto) 0.00 K/uL (0.00-0.02) Ovalocytes 1+ Anion Gap 5.0 mmol/L (3-11) Est Creatinine Clear Calc Drug Dose 69.4 ml/min Estimated GFR () 85.9 Estimated GFR (Non- 74.1 BUN/Creatinine Ratio 14.8 (10-20) Calcium Level 9.0 mg/dl (8.5-10.1) Total Bilirubin 0.8 mg/dl (0.2-1) Direct Bilirubin 0.1 mg/dl (0-0.2) Aspartate Amino Transf (AST/SGOT) 27 U/L (15-37) Alanine Aminotransferase (ALT/SGPT) 63 U/L (12-78) Alkaline Phosphatase 93 U/L (45-117) Total Protein 6.6 gm/dl (6.4-8.2) Albumin 3.7 gm/dl (3.4-5.0) Lipase 291 U/L (73-393) Urine Color YELLOW Urine Appearance CLEAR (CLEAR) Urine pH 5.0 (4.5-7.5) Urine Specific Partridge 1.023 (1.000-1.030) Urine Protein NEG (NEG) Urine Glucose (UA) NEG (NEG) Urine Ketones NEG (NEG) Urine Occult Blood NEG (NEG) Urine Nitrite NEG (NEG) Urine Bilirubin NEG (NEG) Urine Urobilinogen NEG (NEG) Urine Leukocyte Esterase NEG (NEG) Laboratory studies as stated above per my review. Medications Administered Medications (Trade) Dose Ordered Sig/Tamar Route Start Time Stop Time Status Last Admin Dose Admin Morphine Sulfate (MoRPHine SULFATE INJ) 4 mg NOW STAT IV 07/12/17 23:21 07/12/17 23:22 DC 07/12/17 23:32 4 MG Morphine Sulfate (MoRPHine SULFATE INJ) 4 mg NOW STAT IV 07/13/17 01:00 07/13/17 01:01 DC 07/13/17 01:11 4 MG ED Course 2245: Past medical records reviewed. The patient was evaluated in room A9B, and a complete history and physical examination were performed. 2321: Ordered Morphine Sulfate Inj 4 mg IV. 0058: Upon reevaluation, the patient is resting comfortably. I discussed the results and treatment plan with her. She verbalized agreement of the treatment plan. The patient was discharged home. Medical Decision Differentials include UTI, electrolyte or metabolic abnormality, infection, intra-abdominal process,. This patient comes in as described above she does suffer from chronic pain as well as other medical issues. She does tend to get frequent UTIs. She was treated recently for a possible UTI but the culture did not grow any bacteria. She is asking for cath UA and culture. We did this and there is no evidence to suggest a UTI with a culture pending. She has no white count or fever to suggest infections. She has baseline low platelets 75 however this is actually somewhat higher than she's been lately. She's had no acute electrolyte or metabolic abnormalities. He has nothing to suggest acute liver, gallbladder, or pancreas disease. She did receive IV morphine and IV Zofran and received a second dose. Her abdomen is benign there is nothing to suggest peritonitis. She's had multiple abdominal CAT scans in the past and do not feel that we needed to subject her to radiation again with the fact that she is no fever or white count and her abdomen is benign. I did recommend she follow up with her regular doctor. Return if: increasing pain, worsening of symptoms, any new problems or concerns. She is happy with plan and discharged to home. Medication Reconcilliation Current Medication List: was personally reviewed by me Blood Pressure Screening Patient's blood pressure: Normal blood pressure Impression Primary Impression: Diffuse abdominal pain Additional Impression: acute exacerbation of chronic pain Scribe Attestation The scribe's documentation has been prepared under my direction and personally reviewed by me in its entirety. I confirm that the note above accurately reflects all work, treatment, procedures, and medical decision making performed by me. Departure Information Dispostion Home / Self-Care Referrals Xuan Golden .SAUL (PCP) Forms Call Back Authorization, HOME CARE DOCUMENTATION FORM, IMPORTANT VISIT INFORMATION Patient Instructions My [facility] madvertise Additional Instructions Rest Drink plenty of fluids Return if: worsening of symptoms, increasing pain, fever, any new problems or concerns Follow-up with your doctor on Saturday for recheck Problem Qualifiers
[2017-07-12] MEDS ORDERED: MAGIC1 PO (23:12)
[2017-07-12] MEDS ORDERED: MoRPHine SULFATE 4 MG/ML 1 ML CARP\\VIAL IV STA (23:21)
[2017-07-12 23:28] LABS: HEMATOCRIT 40.6 % (37-47); MEAN CELL VOLUME 85.7 fL (80-100); MEAN CORPUSCULAR HEMOGLOBIN 26.4 pg (25-34); MEAN CORPUSCULAR HGB CONC 30.8 g/dl (32-36); RED BLOOD COUNT 4.74 M/uL (4.2-5.4); WHITE BLOOD COUNT 4.09 K/uL (4.8-10.8)
[2017-07-12 23:40] LABS: MEAN PLATELET VOLUME 9.1 fL (7.4-10.4); PLATELET COUNT 75 K/uL (130-400)
[2017-07-12 23:48] LABS: BASO % 0.2 %; BASO ABS # 0.01 K/uL (0-0.2); COMPLETE YES; EOS % 1.7 %; LYMPH % 36.7 %; MONO % 7.3 %; NEUT % 54.1 %; OVALOCYTES 1+
[2017-07-12 23:52] LABS: BUN/CREATININE RATIO 14.8 (10-20); CREATININE 0.97 mg/dl (0.60-1.20); POTASSIUM 3.6 mmol/L (3.5-5.1)
[2017-07-13 00:01] LABS: URINE APPEARANCE CLEAR (CLEAR); URINE BILIRUBIN NEG (NEG); URINE COLOR YELLOW; URINE NITRITE NEG (NEG); URINE SPECIFIC GRAVITY 1.023 (1.000-1.030); UROBILINOGEN NEG (NEG)
[2017-07-13 00:02] LABS: MANUAL MICROSCOPIC REQUIRED? NO; REVIEW REQ? NO
[2017-07-13] MEDS ORDERED: MoRPHine SULFATE 4 MG/ML 1 ML CARP\\VIAL IV STA (01:00)
[2017-07-13 01:12] VITALS: BP 128/86; PULSE 64; O2SAT 97
== END 2017-07-13 01:30 | disposition home or self-care (01) ==
LOC: C.EDB 21:35 → C.EDA 07-13 01:30
DX: R10.9 Unspecified abdominal pain (principal); G89.29 Other chronic pain; F41.9 Anxiety disorder, unspecified; F32.9 Major depressive disorder, single episode, unspecified; K58.9 Irritable bowel syndrome, unspecified; D50.9 Iron deficiency anemia, unspecified; Z93.2 Ileostomy status; Z90.710 Acquired absence of both cervix and uterus; Z98.890 Other specified postprocedural states; Z79.899 Other long term (current) drug therapy; Z88.5 Allergy status to narcotic agent; Z88.8 Allergy status to other drugs, medicaments and biological substances; Z91.030 Bee allergy status; Z91.09 Other allergy status, other than to drugs and biological substances; Z91.018 Allergy to other foods; Z83.3 Family history of diabetes mellitus; Z81.8 Family history of other mental and behavioral disorders; Z80.9 Family history of malignant neoplasm, unspecified; Z82.49 Family history of ischemic heart disease and other diseases of the circulatory system; Z83.79 Family history of other diseases of the digestive system

== ENCOUNTER 2017-07-14 14:17 | Emergency (ER) | payer BC, OTHER ==
[~2017-07-14] VITALS: Ht 172.7 cm; Wt 54.6 kg
[2017-07-14 14:32] VITALS: TEMP 36.9; Ht 172.7 cm; Wt 54.6 kg
[2017-07-14] MEDS ORDERED: METOCLOPRAMIDE HCL INJ 5 MG/ML 2 ML VIAL IV STA (14:45)
[2017-07-14] MEDS ORDERED: GI COCKTAIL PO STA (14:45)
[2017-07-14] MEDS ORDERED: FAMOTIDINE 20 MG TAB PO ONE (14:45)
[2017-07-14] MEDS ORDERED: ACETAMINOPHEN 500 MG TAB PO STA (14:45)
[2017-07-14] MEDS ORDERED: LIDOCAINE HCL 2% VISC SOLN 20 ML UDC ONE (14:56)
[2017-07-14] MEDS ORDERED: ALUMINUM/MAGNESIUM SUSP 30 ML UDC ONE (14:56)
--- NOTE | 2017-07-14 15:10 | EMERGENCY ROOM VISIT NOTE ---
History Report prepared by Carlo: Manuel Coon Under the Supervision of: Dr. Floyd Paiz M.D. First contact with patient: 14:42 Chief Complaint: ABDOMINAL PAIN Stated Complaint: ABD, BACK, OSTOMY PAIN/OSTOMY OUTPUT ISSUES History of Present Illness The patient is a 37 year old white female with a past medical history of anxiety , Crohn's disease, depression, endometriosis, fibromyalgia, hypotension, ileostomy, Raynaud's disease, SBO, thrombocytopenia, total colectomy who presents to the ED with a cc of worsening abdominal pain beginning a few days ago. The patient states she was evaluated two times over the past few days for similar symptoms. She reports it has not gotten better. The patient notes she changed her ileostomy and noted there was purple around it. She states it looked as if it was bruised, but it was not. The patient notes she stood up to use the restroom after sitting for a while, and her pain intensified. She states it hurt to urinate. Positive back pain, burning out of her ileostomy, sweating, chills, nausea, history of UTI. Negative vomiting and history of kidney stones. Source of History: patient Onset: few days Position: abdomen Timing: worsening Modifying Factors (Worsening): other (standing up) Associated Symptoms: + chills, + nausea, + back pain, + urinary symptoms ( pain with urination), No vomiting Note: Associated symptoms: sweating, burning out of her ileostomy Review of Systems See HPI for pertinent positives and negatives. A total of ten systems were reviewed and were otherwise negative. Past Medical & Surgical Medical Problems: (1) Anxiety (2) Colon dysplasia (3) Crohn's colitis (4) Depression (5) Endometriosis (6) Fibromyalgia (7) History of iron deficiency anemia (8) Hypotension (9) Ileostomy in place (10) Interstitial cystitis (11) Migraine (12) Raynauds disease (13) SBO (small bowel obstruction) (14) Thrombocytopenia Surgical Problems: (1) H/O colonoscopy (2) H/O esophagogastroduodenoscopy (3) H/O laparoscopy (4) H/O total colectomy (5) S/P appendectomy (6) S/P hysterectomy Family History Diabetes mellitus FH: depression FH: heart disease FHx: cancer FHx: gallbladder disease Hypertension Social History Smoking Status: Never Smoker Smokeless Tobacco Use: No Alcohol Use: occasionally Drug Use: none Marital Status: Housing Status: lives with significant other Occupation Status: disabled Current/Historical Medications Scheduled Budesonide (Entocort Ec), 9 MG PO DAILY Fluoxetine (Prozac), 40 MG PO HS Fluoxetine Hcl (Prozac), 20 MG PO HS Fluticasone Propionate (Nasal) (Flonase Allergy Relief Ch), 2 SPRAYS ROSARIO DAILY Loratadine (Claritin), 10 MG PO DAILY Montelukast Sodium (Singulair), 10 MG PO DAILY Pantoprazole (Protonix), 40 MG PO BID Pentosan Polysulfate Sodium (Elmiron), 300 MG PO BID Scheduled PRN Alprazolam (Xanax), 0.5 MG PO BID PRN for Anxiety Baclofen (Lioresal), 10 MG PO TID PRN for Hiccups Diphenhy/Alum/Mag/Sucralfa (Magic Swizzle - Diphenhy/Alum/Mag/Sucralfa), 1 TSP PO Q4H PRN for SORE MOUTH Levalbuterol Tartrate (Levalbuterol Tartrate Hfa), 2 PUFFS INH Q4H PRN for Wheezing Metoclopramide Hcl (Reglan), 10 MG PO Q6H PRN for Nausea-Hiccups Morphine Sulfate (Morphine Sulfate Ir), 30 MG PO Q8 PRN for Pain Phenazopyridine HCl (Pyridium), 200 MG PO TID PRN for Bladder pain Prochlorperazine Maleate (Compazine), 10 MG PO TID PRN for Nausea Allergies Coded Allergies: Clarithromycin (Verified Allergy, Severe, breathing problems, 07/12/17) Hydromorphone (Verified Allergy, Intermediate, RASH, 07/12/17) pt sasy she is allergic Ondansetron (Verified Allergy, Intermediate, itching, 07/12/17) Peanut (Verified Allergy, Intermediate, Rash and itchiness, 07/12/17) Hydroxyzine (Verified Allergy, Mild, itching, 07/12/17) Adhesives (Verified Allergy, Unknown, itching, swelling, 07/12/17) Albuterol (Verified Allergy, Unknown, rash, 07/12/17) BEE STING (Unverified Allergy, Unknown, anaphylaxis, 07/12/17) Ketorolac Tromethamine (Unverified Allergy, Unknown, unknown, 07/12/17) Latex (Verified Allergy, Unknown, itching, swelling, 07/12/17) Oxycodone (Verified Allergy, Unknown, itching, 07/12/17) Barium Sulfate (Verified Adverse Reaction, Unknown, diarrhea, 07/12/17) Lobster (Verified Adverse Reaction, Unknown, nausea, diarrhea, 07/12/17) Pregabalin (Verified Adverse Reaction, Unknown, delusions, 07/12/17) Uncoded Allergies: SPLENDA (Allergy, Unknown, Nausea/Vomiting, 09/26/16) Physical Exam Vital Signs Date Time Temp Pulse Resp B/P (MAP) Pulse Ox O2 Delivery O2 Flow Rate FiO2 07/14/17 17:33 74 18 108/71 99 Room Air 07/14/17 16:35 85 07/14/17 16:13 81 16 108/77 98 Room Air 07/14/17 14:32 36.9 88 18 138/92 95 Room Air Physical Exam GENERAL: Awake, alert, well-appearing, NAD HENT: Normocephalic, atraumatic. EYES: Normal conjunctiva. Sclera non-icteric. NECK: Supple. No nuchal rigidity. FROM. RESPIRATORY: CTAB, no rhonchi, wheezing, crackles CARDIAC: RRR, no MRG ABDOMEN: Soft, ND, BS+, mild diffuse abdominal pain. RLQ ostomy in place. Ostomy bag was removed - no overlying cellulitic changes, no TTP, no fluctuantes , stoma sticks out 1cm but that is baseline. No gross blood. MSK: No chest wall TTP, no LE edema NEURO: GCS 15, CN 2-12 intact, moves all 4s on command SKIN: No rash or jaundice noted. Medical Decision & Procedures ER Provider Diagnostic Interpretation: Radiology results as stated below per my review and radiologist interpretation ABDOMEN AND PELVIS CT WITH IV CONTRAST CT DOSE: 251.88 mGy.cm HISTORY: h/o of crohn's and CC s/p colectomy w/ colostomy RLQ TECHNIQUE: Multiaxial CT images of the abdomen and pelvis were performed following the use of intravenous contrast. A dose lowering technique was utilized adhering to the principles of ALARA. COMPARISON STUDY: Abdomen and pelvis CT 04/17/2017. FINDINGS: The lung bases are clear. No pneumoperitoneum. No pneumatosis. No fractures within the visualized osseous structures. No hepatic or splenic masses. Stable splenomegaly. The pancreas, adrenal glands, gallbladder, and kidneys are unremarkable. No retroperitoneal lymphadenopathy. Normal bladder. The uterus is surgically absent. Trace fluid within the deep pelvis, unchanged. Status post proctocolectomy with a right lower quadrant ileostomy. No bowel wall thickening or obstruction. IMPRESSION: 1. No bowel wall thickening or obstruction. 2. Prior proctocolectomy with a right lower quadrant ileostomy. 3. Stable splenomegaly. Electronically signed by: Pancho Maria M.D. 07/14/2017 4:44 PM Dictated Date/Time: 07/14/2017 4:03 PM Laboratory Results 07/14/17 15:09 Red Blood Count 4.67, Mean Corpuscular Volume 84.8, Mean Corpuscular Hemoglobin 27.2, Mean Corpuscular Hemoglobin Concent 32.1, Mean Platelet Volume 9.7, Neutrophils (%) (Auto) 64.1, Lymphocytes (%) (Auto) 26.4, Monocytes (%) (Auto) 7.6, Eosinophils (%) (Auto) 1.9, Basophils (%) (Auto) 0.0, Neutrophils # (Auto) 2.70, Lymphocytes # (Auto) 1.11, Monocytes # (Auto) 0.32, Eosinophils # (Auto) 0.08, Basophils # (Auto) 0.00 07/14/17 15:09 Test 07/14/17 15:09 07/14/17 15:32 White Blood Count 4.21 K/uL (4.8-10.8) Red Blood Count 4.67 M/uL (4.2-5.4) Hemoglobin 12.7 g/dL (12.0-16.0) Hematocrit 39.6 % (37-47) Mean Corpuscular Volume 84.8 fL (80-100) Mean Corpuscular Hemoglobin 27.2 pg (25-34) Mean Corpuscular Hemoglobin Concent 32.1 g/dl (32-36) Platelet Count 85 K/uL (130-400) Mean Platelet Volume 9.7 fL (7.4-10.4) Neutrophils (%) (Auto) 64.1 % Lymphocytes (%) (Auto) 26.4 % Monocytes (%) (Auto) 7.6 % Eosinophils (%) (Auto) 1.9 % Basophils (%) (Auto) 0.0 % Neutrophils # (Auto) 2.70 K/uL (1.4-6.5) Lymphocytes # (Auto) 1.11 K/uL (1.2-3.4) Monocytes # (Auto) 0.32 K/uL (0.11-0.59) Eosinophils # (Auto) 0.08 K/uL (0-0.5) Basophils # (Auto) 0.00 K/uL (0-0.2) RDW Standard Deviation 42.1 fL (36.4-46.3) RDW Coefficient of Variation 13.7 % (11.5-14.5) Immature Granulocyte % (Auto) 0.0 % Immature Granulocyte # (Auto) 0.00 K/uL (0.00-0.02) Platelet Estimate DECREASED Anion Gap 9.0 mmol/L (3-11) Est Creatinine Clear Calc Drug Dose 74.7 ml/min Estimated GFR () 96.6 Estimated GFR (Non- 83.3 BUN/Creatinine Ratio 12.9 (10-20) Calcium Level 8.7 mg/dl (8.5-10.1) Total Bilirubin 1.0 mg/dl (0.2-1) Direct Bilirubin 0.2 mg/dl (0-0.2) Aspartate Amino Transf (AST/SGOT) 29 U/L (15-37) Alanine Aminotransferase (ALT/SGPT) 68 U/L (12-78) Alkaline Phosphatase 92 U/L (45-117) Total Protein 6.9 gm/dl (6.4-8.2) Albumin 3.7 gm/dl (3.4-5.0) Lipase 314 U/L (73-393) Urine Color YELLOW Urine Appearance CLEAR (CLEAR) Urine pH 5.0 (4.5-7.5) Urine Specific [place] 1.011 (1.000-1.030) Urine Protein NEG (NEG) Urine Glucose (UA) NEG (NEG) Urine Ketones NEG (NEG) Urine Occult Blood NEG (NEG) Urine Nitrite NEG (NEG) Urine Bilirubin NEG (NEG) Urine Urobilinogen NEG (NEG) Urine Leukocyte Esterase TRACE (NEG) Urine WBC (Auto) 1-5 /hpf (0-5) Urine RBC (Auto) 0-4 /hpf (0-4) Urine Hyaline Casts (Auto) 0 /lpf (0-5) Urine Epithelial Cells (Auto) 10-20 /lpf (0-5) Urine Bacteria (Auto) NEG (NEG) Urine Test NEG (NEG) Laboratory results reviewed by me Medications Administered Medications (Trade) Dose Ordered Sig/Tamar Route Start Time Stop Time Status Last Admin Dose Admin Acetaminophen (Tylenol Tab) 1,000 mg NOW STAT PO 07/14/17 14:45 07/14/17 14:47 DC 07/14/17 15:08 1,000 MG Famotidine (Pepcid Tab) 20 mg NOW ONCE PO 07/14/17 14:45 07/14/17 14:47 DC 07/14/17 15:08 20 MG Metoclopramide HCl (Reglan Inj) 10 mg NOW STAT IV 07/14/17 14:45 07/14/17 14:48 DC 07/14/17 15:08 10 MG Lidocaine HCl (Viscous Lidocaine 2% Soln) 20 ml STK-MED ONCE .ROUTE 07/14/17 14:56 07/14/17 14:57 DC 07/14/17 15:08 20 ML Al Hydroxide/Mg Hydroxide (Maalox Susp) 30 ml STK-MED ONCE .ROUTE 07/14/17 14:56 07/14/17 14:57 DC 07/14/17 15:09 30 ML Fentanyl Citrate (Fentanyl Inj) 100 mcg STK-MED ONCE .ROUTE 07/14/17 16:08 07/14/17 16:09 DC 07/14/17 16:12 50 MCG Acetaminophen/ Hydrocodone Bitart ([place] 5/325 Tab) 1 tab NOW STAT PO 07/14/17 16:29 07/14/17 16:30 DC 07/14/17 16:55 1 TAB ED Course 1451: The patient was evaluated in room C01B. A complete history and physical exam was performed. 1627: I reevaluated the patient and updated her of her current exam findings. She is still having mild abdominal tenderness. 1642: I reevaluated the patient. Her ostomy bag was removed. Refer to the PE for findings. 1741: I reevaluated the patient. Discussed results and discharge instructions: she verbalized understanding and agreement. The patient is ready for discharge. Medical Decision The patient is a 37 year old white female with a past medical history of anxiety , Crohn's disease, depression, endometriosis, fibromyalgia, hypotension, ileostomy, Raynaud's disease, SBO, thrombocytopenia, total colectomy who presents to the ED with a cc of worsening abdominal pain beginning a few days ago. Etiologies such as appendicitis, diverticulitis, PUD, biliary pathology, UTI, pancreatitis, obstruction, mesenteric ischemia, aortic pathology, infections, inflammatory bowel disease, renal colic, as well as others were entertained. Patient was seen and evaluated the bedside. Patient is a known history of Crohn 's disease which resulted in colon cancer status post resection. Patient has not received any chemotherapy or radiation therapy. Patient does take chronic budesonide does see Dr. reynolds for gastroenterology. Patient states she has not had a Crohn's flare and been admitted for several months. On exam the patient does complain of some mild diffuse abdominal pain. Patient did have blood work that was completed along with CT of the abdomen pelvis and urinalysis. Patient was given medications for symptom control. Patient's blood work is fairly unremarkable. Patient does have some mild thrombocytopenia which is unchanged. Patient's blood counts are otherwise fairly normal. Patient is no changes in her LFTs or lipase. Patient's urinalysis is not concerning for acute infection. Patient did have CT of the abdomen pelvis which does not show any bowel wall thickening. No other acute abnormality seen. I did inspect the patient's ileostomy site which does not appear to have any erythema, fluctuance , or other skin changes. The stool coming from the ileostomy was fairly thin but no gross blood seen. Patient was informed of these findings. Patient was feeling mildly improved. Patient was told she should follow-up with her gastric neurologist. Patient was given strict follow-up, discharge, and return precautions. All questions were answered. Patient was deemed suitable for outpatient follow-up at this time. Patient agreed with the plan of care and was safely discharged home. Medication Reconcilliation Current Medication List: was personally reviewed by me Blood Pressure Screening Patient's blood pressure: Normal blood pressure Blood pressure disposition: Did not require urgent referral Impression Primary Impression: Abdominal pain Additional Impression: Crohns disease Scribe Attestation The scribe's documentation has been prepared under my direction and personally reviewed by me in its entirety. I confirm that the note above accurately reflects all work, treatment, procedures, and medical decision making performed by me. Departure Information Dispostion Home / Self-Care Referrals Rock Cabrera D.O. (PCP) Forms Call Back Authorization, HOME CARE DOCUMENTATION FORM, IMPORTANT VISIT INFORMATION Patient Instructions Abdominal Pain, My Sofia Fernandez Additional Instructions Please return to the emergency department if you have worsening or recurrent symptoms not amenable to at-home treatment. Please call for a follow-up appointment with her primary care physician. Please take your medications as prescribed. If you have other concerns and/or complaints please feel free to also call your primary care physician's office or return the ED for further evaluation, management, and treatment. You received narcotic or benzodiazepene medication while in the emergency room today. This is an addictive medication that may cause drowziness as well as constipation. Do not drive, operate heavy machinery, or drink alcohol under the influence of this medication. You may take 400 mg Ibuprofen every 6 hours as needed for pain with food for no more than 2 consecutive days. You may take tylenol 1000 mg every 6 hours as needed for pain. You may take motrin and tylenol separately or at the same time. Take your medications as prescribed. Please follow-up with her field checker to discuss further management and treatment. Please also discuss pain needs with her primary care physician and possible referral for pain management. You have been examined and treated today on an emergency basis only. This is not a substitute for, or an effort to provide, complete comprehensive medical care. It is impossible to recognize and treat all injuries or illnesses in a single emergency department visit. It is therefore important that you follow up closely with [facility], your PCP, and/or your specialist(s). Call as soon as possible for an appointment. Thank you for your time and consideration. I look forward to speaking with you again soon. Please don't hesitate to call us if you have any questions. Problem Qualifiers Primary Impression: Abdominal pain Abdominal location: generalized Qualified Codes: R10.84 - Generalized abdominal pain Additional Impression: Crohns disease Gastrointestinal tract location: unspecified location Digestive disease complication type: without complication Qualified Codes: K50.90 - Crohn's disease, unspecified, without complications
[2017-07-14] MEDS ORDERED: OPTIRAY 320 IV PRN (15:15)
[2017-07-14 15:21] LABS: HEMATOCRIT 39.6 % (37-47); MEAN CELL VOLUME 84.8 fL (80-100); MEAN CORPUSCULAR HEMOGLOBIN 27.2 pg (25-34); MEAN CORPUSCULAR HGB CONC 32.1 g/dl (32-36); RED BLOOD COUNT 4.67 M/uL (4.2-5.4); WHITE BLOOD COUNT 4.21 K/uL (4.8-10.8)
[2017-07-14 15:40] LABS: BUN/CREATININE RATIO 12.9 (10-20); CALCIUM 8.7 mg/dl (8.5-10.1); CREATININE 0.88 mg/dl (0.60-1.20); POTASSIUM 3.3 mmol/L (3.5-5.1)
[2017-07-14 15:42] LABS: MEAN PLATELET VOLUME 9.7 fL (7.4-10.4); PLATELET COUNT 85 K/uL (130-400)
[2017-07-14 15:42] LABS: PREG INTERNAL NEGATIVE QC NEG CLEAR BACKGROUND; PREG INTERNAL POSITIVE QC POS CONTROL LINE; URINE APPEARANCE CLEAR (CLEAR); URINE BILIRUBIN NEG (NEG); URINE COLOR YELLOW; URINE NITRITE NEG (NEG); URINE SPECIFIC GRAVITY 1.011 (1.000-1.030); UROBILINOGEN NEG (NEG); ZZURINE CULT IF INDIC CATH NO
[2017-07-14 15:43] LABS: COMPLETE YES; EOS % 1.9 %; LYMPH % 26.4 %; LYMPH ABS # 1.11 K/uL (1.2-3.4); MONO % 7.6 %; NEUT % 64.1 %; PLT ESTIMATE DECREASED
[2017-07-14] MEDS ORDERED: HYDROmorphone INJ 0.5 MG/0.5 ML SYR IV STA (15:43)
[2017-07-14 15:56] LABS: MANUAL MICROSCOPIC REQUIRED? NO; REVIEW REQ? NO
[2017-07-14] MEDS ORDERED: FENTANYL CITRATE INJ 50 MCG/1 ML 2 ML VIAL ONE (16:08)
[2017-07-14] MEDS ORDERED: HYDROCODONE/ACETAMOPHEN 5/325MG TAB PO STA (16:29)
--- NOTE | 2017-07-14 16:46 | DIAGNOSTIC IMAGING REPORT ---
ABDOMEN AND PELVIS CT WITH IV CONTRAST CT DOSE: 251.88 mGy.cm HISTORY: h/o of crohn's and CC s/p colectomy w/ colostomy RLQ TECHNIQUE: Multiaxial CT images of the abdomen and pelvis were performed following the use of intravenous contrast. A dose lowering technique was utilized adhering to the principles of ALARA. COMPARISON STUDY: Abdomen and pelvis CT 04/17/2017. FINDINGS: The lung bases are clear. No pneumoperitoneum. No pneumatosis. No fractures within the visualized osseous structures. No hepatic or splenic masses. Stable splenomegaly. The pancreas, adrenal glands, gallbladder, and kidneys are unremarkable. No retroperitoneal lymphadenopathy. Normal bladder. The uterus is surgically absent. Trace fluid within the deep pelvis, unchanged. Status post proctocolectomy with a right lower quadrant ileostomy. No bowel wall thickening or obstruction. IMPRESSION: 1. No bowel wall thickening or obstruction. 2. Prior proctocolectomy with a right lower quadrant ileostomy. 3. Stable splenomegaly. Electronically signed by: Pancho Maria M.D. 07/14/2017 4:44 PM Dictated Date/Time: 07/14/2017 4:03 PM
[2017-07-14 17:33] VITALS: BP 108/71; PULSE 74; O2SAT 99
== END 2017-07-14 18:00 | disposition home or self-care (01) ==
LOC: C.EDB 14:19 → C.EDC 18:00
DX: R10.84 Generalized abdominal pain (principal); K50.90 Crohn's disease, unspecified, without complications; F41.9 Anxiety disorder, unspecified; F32.9 Major depressive disorder, single episode, unspecified; N80.9 Endometriosis, unspecified; M79.7 Fibromyalgia; I95.9 Hypotension, unspecified; I73.00 Raynaud's syndrome without gangrene; D69.6 Thrombocytopenia, unspecified; M54.9 Dorsalgia, unspecified; Z93.2 Ileostomy status; Z90.49 Acquired absence of other specified parts of digestive tract; Z85.038 Personal history of other malignant neoplasm of large intestine; Z90.710 Acquired absence of both cervix and uterus; Z83.3 Family history of diabetes mellitus; Z82.49 Family history of ischemic heart disease and other diseases of the circulatory system; Z81.8 Family history of other mental and behavioral disorders

== ENCOUNTER 2017-08-29 00:46 | Inpatient (IN) | payer BC, OTHER ==
[~2017-08-29] VITALS: Ht 172.7 cm; Wt 59.6 kg
[~2017-08-29 00:46] MED LIST changes: -BACL1TAB PO; -BUDE1CAP6 PO; -CLR10 PO; -FLUO20CA34 PO; -FLUO40CA8 PO; -FLUT1SPR12 NAE; -LEVA45AE INH; -MAGIC1 PO; -METO-157 PO; -MONT1TAB3 PO; -PANT1TAB48 PO; -PENT100C6 PO; -PHEN-876 PO
[2017-08-29] MEDS ORDERED: SODIUM CHLORIDE 0.9% 1000ML 1,000 ML IV STA (01:04)
[2017-08-29] MEDS ORDERED: DiphenhydrAMINE HCL 50 MG/ML VIAL IV STA (01:04)
[2017-08-29] MEDS ORDERED: PROCHLORPERAZINE 5 MG/ML 2 ML VIAL IV STA (01:04)
[2017-08-29] MEDS ORDERED: DICYCLOMINE HCL 10 MG/ML 2 ML AMP IM ONE (01:15)
[2017-08-29 01:36] LABS: HEMATOCRIT 40.4 % (37-47); HEMOGLOBIN 13.4 g/dL (12.0-16.0); MEAN CELL VOLUME 81.5 fL (80-100); MEAN CORPUSCULAR HGB CONC 33.2 g/dl (32-36); RED CELL DISTRIBUTION WIDTH CV 14.8 % (11.5-14.5); RED CELL DISTRIBUTION WIDTH SD 43.7 fL (36.4-46.3); WHITE BLOOD COUNT 5.45 K/uL (4.8-10.8)
[2017-08-29 01:45] LABS: PTT PATIENT 28.2 SECONDS (21.0-31.0)
[2017-08-29 01:54] LABS: CREATININE 1.01 mg/dl (0.60-1.20); POTASSIUM 4.1 mmol/L (3.5-5.1)
[2017-08-29 01:57] LABS: TOTAL PROTEIN 7.4 gm/dl (6.4-8.2)
[2017-08-29 02:02] LABS: MEAN PLATELET VOLUME 10.2 fL (7.4-10.4); PLATELET COUNT 92 K/uL (130-400)
[2017-08-29 02:04] LABS: BASO % 0.4 %; BASO ABS # 0.02 K/uL (0-0.2); EOS % 5.3 %; EOS ABS # 0.29 K/uL (0-0.5); IG# 0.01 K/uL (0.00-0.02); LYMPH % 33.6 %; LYMPH ABS # 1.83 K/uL (1.2-3.4); MONO % 8.3 %; MONO ABS # 0.45 K/uL (0.11-0.59); NEUT % 52.2 %; NEUT ABS # 2.85 K/uL (1.4-6.5)
--- NOTE | 2017-08-29 03:14 | EMERGENCY ROOM VISIT NOTE ---
History First contact with patient: 00:55 Chief Complaint: ABDOMINAL PAIN Stated Complaint: SEVERE STOMACH PAIN, BLOOD IN BAG, DIARRHEA Nursing Triage Summary: patient c/o stoma pain and states earlier she noticed blood in her drainage. patient was seen here saturday for similar symptoms and discharged. History of Present Illness The patient is a 37 year old female who presents to the Emergency Room with complaints of ongoing abdominal pain with increasing stooling production with blood in the stool for the past week. Patient states today she started to notice blood in her stool. She had a few specks earlier this week but now she is straight blood. No black stool. Patient denies current vomiting, fever, chills, back pain, urinary symptoms. She is tolerating by mouth fluids. Dr. reynolds is her GI doctor. She called her GI doctor and [facility] and was advised to give the ER. Pain currently 8 out of 10. Nothing makes it better or worse described as cramping. It does not radiate. Review of Systems See HPI for pertinent positives & negatives. A total of 10 systems reviewed and were otherwise negative. Past Medical/Surgical History Medical Problems: (1) Anxiety (2) Colon dysplasia (3) Crohn's colitis (4) Depression (5) Endometriosis (6) Fibromyalgia (7) History of iron deficiency anemia (8) Hypotension (9) Ileostomy in place (10) Interstitial cystitis (11) Migraine (12) Raynauds disease (13) SBO (small bowel obstruction) (14) Thrombocytopenia Surgical Problems: (1) H/O colonoscopy (2) H/O esophagogastroduodenoscopy (3) H/O laparoscopy (4) H/O total colectomy (5) S/P appendectomy (6) S/P hysterectomy Family History Diabetes mellitus FH: depression FH: heart disease FHx: cancer FHx: gallbladder disease Hypertension Social History Smoking Status: Never Smoker Alcohol Use: occasionally Drug Use: none Marital Status: Housing Status: lives with significant other Occupation Status: disabled Current/Historical Medications Scheduled Budesonide (Entocort Ec), 9 MG PO DAILY Fluoxetine (Prozac), 40 MG PO HS Fluoxetine Hcl (Prozac), 20 MG PO HS Fluticasone Propionate (Nasal) (Flonase Allergy Relief ), 2 SPRAYS ROSARIO DAILY Loratadine (Claritin), 10 MG PO DAILY Montelukast Sodium (Singulair), 10 MG PO DAILY Pantoprazole (Protonix), 40 MG PO BID Pentosan Polysulfate Sodium (Elmiron), 300 MG PO BID Valacyclovir (Valtrex), 500 MG PO DAILY Scheduled PRN Alprazolam (Xanax), 0.5 MG PO BID PRN for Anxiety Baclofen (Lioresal), 10 MG PO TID PRN for Hiccups Diphenhy/Alum/Mag/Sucralfa (Magic Swizzle - Diphenhy/Alum/Mag/Sucralfa), 1 TSP PO Q4H PRN for SORE MOUTH Levalbuterol Tartrate (Levalbuterol Tartrate Hfa), 2 PUFFS INH Q4H PRN for Wheezing Metoclopramide Hcl (Reglan), 10 MG PO Q6H PRN for Nausea-Hiccups Morphine Sulfate (Morphine Sulfate Ir), 30 MG PO Q8 PRN for Pain Phenazopyridine HCl (Pyridium), 200 MG PO TID PRN for Bladder pain Prochlorperazine Maleate (Compazine), 10 MG PO TID PRN for Nausea Physical Exam Vital Signs Date Time Temp Pulse Resp B/P (MAP) Pulse Ox O2 Delivery O2 Flow Rate FiO2 08/29/17 01:40 101 08/29/17 01:39 83 20 100/65 100 Room Air 08/29/17 01:38 95 Room Air 08/29/17 00:51 37.0 108 20 108/74 97 Room Air Physical Exam VITALS: Vitals are noted on the nurse's note and reviewed by myself. Vital signs stable. GENERAL: White female, in no acute distress, nondiaphoretic, well-developed well -nourished. SKIN: The skin was without rashes, erythema, edema, or bruising. There is no tenting of the skin. Capillary reflex less than 2 seconds. HEAD: Normocephalic atraumatic. EARS: External auditory canals clear, tympanic membranes pearly ackerman without erythema or effusion bilaterally. EYES: Pupils equal round and reactive to light and accommodation. Conjunctivae without injection, sclerae without icterus. Extraocular movements intact. NOSE: Patent, turbinates without inflammation or discharge. MOUTH: Mucous membranes moist. Pharynx without erythema or exudate. Uvula midline. Airway patent. Tongue does not deviate. NECK: Supple without nuchal rigidity. No lymphadenopathy. No thyromegaly. Cervical spine is nontender. No JVD. HEART: Regular rate and rhythm LUNGS: Clear to auscultation bilaterally without wheezes, rales or rhonchi. No dullness to percussion. No retractions or accessory muscle use. ABDOMEN: Positive bowel sounds x 4. Normal tympanic percussion. Soft, tender to palpation periumbilical, ostomy site right mid to lower quadrant actively producing stool without blood, without masses or organomegaly. Randolph sign negative. No guarding or rebound tenderness. No CVA tenderness MUSCULOSKELETAL: No muscle atrophy, erythema, or edema noted. NEURO: Patient was alert and oriented to person place and time. Normal sensation to light and sharp touch. No focal neurological deficits. Medical Decision & Procedures Laboratory Results 08/29/17 01:20 Red Blood Count 4.96, Mean Corpuscular Volume 81.5, Mean Corpuscular Hemoglobin 27.0, Mean Corpuscular Hemoglobin Concent 33.2, Mean Platelet Volume 10.2, Neutrophils (%) (Auto) 52.2, Lymphocytes (%) (Auto) 33.6, Monocytes (%) (Auto) 8.3, Eosinophils (%) (Auto) 5.3, Basophils (%) (Auto) 0.4, Neutrophils # (Auto) 2.85, Lymphocytes # (Auto) 1.83, Monocytes # (Auto) 0.45, Eosinophils # (Auto) 0.29, Basophils # (Auto) 0.02 08/29/17 01:20 Test 08/29/17 01:20 08/29/17 01:29 White Blood Count 5.45 K/uL (4.8-10.8) Red Blood Count 4.96 M/uL (4.2-5.4) Hemoglobin 13.4 g/dL (12.0-16.0) Hematocrit 40.4 % (37-47) Mean Corpuscular Volume 81.5 fL (80-100) Mean Corpuscular Hemoglobin 27.0 pg (25-34) Mean Corpuscular Hemoglobin Concent 33.2 g/dl (32-36) Platelet Count 92 K/uL (130-400) Mean Platelet Volume 10.2 fL (7.4-10.4) Neutrophils (%) (Auto) 52.2 % Lymphocytes (%) (Auto) 33.6 % Monocytes (%) (Auto) 8.3 % Eosinophils (%) (Auto) 5.3 % Basophils (%) (Auto) 0.4 % Neutrophils # (Auto) 2.85 K/uL (1.4-6.5) Lymphocytes # (Auto) 1.83 K/uL (1.2-3.4) Monocytes # (Auto) 0.45 K/uL (0.11-0.59) Eosinophils # (Auto) 0.29 K/uL (0-0.5) Basophils # (Auto) 0.02 K/uL (0-0.2) RDW Standard Deviation 43.7 fL (36.4-46.3) RDW Coefficient of Variation 14.8 % (11.5-14.5) Immature Granulocyte % (Auto) 0.2 % Immature Granulocyte # (Auto) 0.01 K/uL (0.00-0.02) Platelet Estimate DECREASED Prothrombin Time 10.1 SECONDS (9.0-12.0) Prothromb Time International Ratio 1.0 (0.9-1.1) Activated Partial Thromboplast Time 28.2 SECONDS (21.0-31.0) Partial Thromboplastin Ratio 1.1 Anion Gap 6.0 mmol/L (3-11) Est Creatinine Clear Calc Drug Dose 67.6 ml/min Estimated GFR () 81.8 Estimated GFR (Non- 70.6 BUN/Creatinine Ratio 14.8 (10-20) Calcium Level 9.0 mg/dl (8.5-10.1) Magnesium Level 1.8 mg/dl (1.8-2.4) Total Bilirubin 0.8 mg/dl (0.2-1) Direct Bilirubin 0.1 mg/dl (0-0.2) Aspartate Amino Transf (AST/SGOT) 23 U/L (15-37) Alanine Aminotransferase (ALT/SGPT) 39 U/L (12-78) Alkaline Phosphatase 113 U/L (45-117) C-Reactive Protein 0.81 mg/dl (0-0.29) Total Protein 7.4 gm/dl (6.4-8.2) Albumin 4.0 gm/dl (3.4-5.0) Lipase 230 U/L (73-393) Human Chorionic Gonadotropin, Qual NEG (NEG) Erythrocyte Sedimentation Rate 9 mm/hr (0-21) Medications Administered Medications (Trade) Dose Ordered Sig/Tamar Route Start Time Stop Time Status Last Admin Dose Admin Sodium Chloride 1,000 ml @ 999 mls/hr Q1H1M STAT IV 08/29/17 01:04 08/29/17 02:04 DC 08/29/17 01:33 999 MLS/HR Dicyclomine HCl (Bentyl Inj) 20 mg NOW ONCE IM 08/29/17 01:15 08/29/17 01:16 DC 08/29/17 01:33 20 MG Prochlorperazine Edisylate (Compazine Inj) 5 mg NOW STAT IV 08/29/17 01:04 08/29/17 01:08 DC 08/29/17 01:33 5 MG Diphenhydramine HCl (Benadryl Inj) 12.5 mg NOW STAT IV 08/29/17 01:04 08/29/17 01:08 DC 08/29/17 01:33 12.5 MG ED Course Prior records/ancillary studies reviewed. Triage Nursing notes reviewed. Additional history obtained from family. The patient's history was concerning for abdominal pain. Differential diagnosis: Etiologies such as Crohn's disease, acute on chronic pain, drug-seeking behavior , GI bleed, appendicitis, diverticulitis, PUD, biliary pathology, UTI, pancreatitis, obstruction, mesenteric ischemia, aortic pathology, infections, inflammatory bowel disease, renal colic, as well as others were entertained. Physical examination findings: As above. ER treatment provided: IV fluids, Bentyl, Compazine, Benadryl On reassessment the patient felt better. Diagnostics interpreted by me: The labs revealed improving thrombocytopenia. No worrisome electrolyte abnormality. Hemoccult negative for blood Imaging studies: Acute abdominal series with no obvious free air or obstruction per my interpretation CT ABD/PELVIS IV CONTRAST ONLY CLINICAL HISTORY: Dominant pain. Flank pain. Stomal pain. Elevated lipase. COMPARISON STUDY: 07/14/2017 TECHNIQUE: Following the IV administration of 119 mL of [id number]-320, CT scan of the abdomen and pelvis was performed from the lung bases to the proximal femurs. Images are reviewed in the axial, sagittal, and coronal planes. IV contrast was administered without complication. A dose lowering technique was utilized adhering to the principles of ALARA. CT DOSE: 275.77 mGy.cm FINDINGS: Lower chest: The heart is normal in size and configuration, without pericardial effusion. The lung bases and pleural spaces are clear. Liver: The contrast-enhanced liver is normal in size, contour, and attenuation. There is no intrahepatic biliary ductal dilatation. The hepatic veins and portal veins are patent. Gallbladder: Unremarkable. Spleen: Normal in size and attenuation. Pancreas: Unremarkable. Adrenal glands: Unremarkable. Kidneys: There is symmetric renal cortical enhancement. The kidneys are normal in size without hydronephrosis. Bowel: There are postsurgical changes of a colectomy with right lower quadrant ileostomy. There are multiple mildly fluid-filled distal small bowel loops. There is a small bowel feces sign. Mild distal small bowel wall thickening is suspected. Peritoneum: There is no intraperitoneal free air or abdominal ascites. Vasculature: The abdominal aorta is normal in course and caliber. Adenopathy: None. Pelvic viscera: The uterus is surgically absent. Skeletal structures: No destructive osseous lesions are seen. IMPRESSION: 1. Postsurgical changes of a colectomy and right lower quadrant ileostomy 2. Mildly dilated fluid and feces filled distal small bowel loops. 3. Suspected minimal bowel wall thickening involving the distal ileal loop. 4. Findings are viewed as suspicious for a early or low-grade partial small bowel obstruction with possible active Crohn's versus an infectious ileitis. Clinical follow-up is advocated Electronically signed by: Jamie Ortiz M.D. Consultation: A consultation was placed with the hospitalist Dr. Varma. The case was discussed and diagnostics were reviewed. The patient was evaluated in the ER for further treatment. Exam and history seem consistent with abdominal pain that could be related to patient's Crohn's or an ileitis. Patient's having worsening ongoing pain for the past week. Patient called her GI doctor in [facility] and was advised to go the ER for possible admission as supposedly she had blood in her ostomy bag. This was guaiaced and was negative. Patient's been having increasing stooling production. The pain is persisting and worsening. She is afebrile and nontoxic. She will be evaluated by medicine for possible admission. By the evaluation outlined above emergent etiologies such as appendicitis, diverticulitis, PUD, biliary pathology, UTI, pancreatitis, obstruction, mesenteric ischemia, aortic pathology, renal colic, as well as others were deemed relatively unlikely. The pt informed about the findings as listed above. All questions were answered and pleased with the treatment. Case reviewed with my attending Medical Decision As above Medication Reconcilliation Current Medication List: was personally reviewed by me Blood Pressure Screening Patient's blood pressure: Normal blood pressure Impression Primary Impression: Abdominal pain Additional Impression: Crohn's disease Departure Information Referrals Rock Cabrera D.O. (PCP) Patient Instructions My [facility] Problem Qualifiers Primary Impression: Abdominal pain Abdominal location: periumbilical Qualified Codes: R10.33 - Periumbilical pain
[2017-08-29] MEDS ORDERED: NON-FORMULARY MEDICATION (Diphenhy/Alum/Mag/Sucralfa (Magic Swizzle - Diphenhy/Alum/Mag/Su PO PRN (03:30)
[2017-08-29] MEDS ORDERED: PHENAZOPYRIDINE HCL 200 MG TAB PO PRN (03:30)
[2017-08-29] MEDS ORDERED: METOCLOPRAMIDE HCL 10 MG TAB PO PRN (03:30)
[2017-08-29] MEDS ORDERED: BACLOFEN 10 MG TAB PO PRN (03:30)
[2017-08-29] MEDS ORDERED: LEValbuterol HFA 15GM INHALER INH PRN (03:30)
[2017-08-29] MEDS ORDERED: PROCHLORPERAZINE MALEATE 10 MG TAB PO PRN (03:30)
[2017-08-29 03:44] VITALS: BP 109/66; PULSE 89; BMI 19.0
[2017-08-29] MEDS: ALPRAZOLAM 0.5 MG TAB PO PRN ×3 (04:07→23:32)
[2017-08-29] MEDS ORDERED: IV FLUIDS COMPLETED PRN (05:00)
[2017-08-29 05:21] VITALS: BP 93/60; PULSE 76; TEMP 36.6; O2SAT 96
--- NOTE | 2017-08-29 06:34 | History and Physical ---
History & Physical Date & Time of Service: Aug 29, 2017 at 06:30 Chief Complaint: Abdominal Pain Primary Care Physician: Rock Cabrera D.O. History of Present Illness Patient returns to the ED after evaluation on 08/26/17 for abdominal pain and vomiting with previous CT abdomen exam findings on 08/26/17 of "1. Postsurgical changes of a colectomy and right lower quadrant ileostomy 2. Mildly dilated fluid and feces filled distal small bowel loops. 3. Suspected minimal bowel wall thickening involving the distal ileal loop. 4. Findings are viewed as suspicious for a early or low-grade partial small bowel obstruction with possible active Crohn's versus an infectious ileitis." Patient reports that vomiting stopped but with increase ileostomy output and abdominal pain persists Patient denies fever at home. She is asking for benzodiazepines for anxiety and narcotic pain medications for abdominal pain. Does not appear to be in acute distress Past Medical/Surgical History Medical Problems: (1) Anxiety Status: Chronic (2) Colon dysplasia Status: Chronic (3) Crohn's colitis Status: Chronic (4) Depression Status: Chronic (5) Endometriosis Status: Chronic (6) Fibromyalgia Status: Chronic (7) History of iron deficiency anemia Status: Chronic (8) Ileostomy in place Status: Chronic (9) Interstitial cystitis Status: Chronic (10) Migraine Status: Chronic (11) Raynauds disease Status: Chronic (12) Thrombocytopenia Status: Chronic Surgical Problems: (1) H/O colonoscopy Status: Chronic (2) H/O esophagogastroduodenoscopy Status: Chronic (3) H/O laparoscopy Permanent Comment: biopsy for endometriosis Status: Chronic (4) H/O total colectomy Status: Resolved (5) S/P appendectomy Status: Chronic (6) S/P hysterectomy Status: Chronic Family History Diabetes mellitus FH: depression FH: heart disease FHx: cancer FHx: gallbladder disease Hypertension Social History Smoking Status: Never Smoker Drug Use: none Marital Status: Housing status: lives with significant other Occupational Status: disabled Allergies Coded Allergies: Clarithromycin (Verified Allergy, Severe, breathing problems, 08/26/17) Hydromorphone (Verified Allergy, Intermediate, RASH, 08/26/17) pt sasy she is allergic Ondansetron (Verified Allergy, Intermediate, itching, 08/26/17) Peanut (Verified Allergy, Intermediate, Rash and itchiness, 08/26/17) Hydroxyzine (Verified Allergy, Mild, itching, 08/26/17) Adhesives (Verified Allergy, Unknown, itching, swelling, 08/26/17) Albuterol (Verified Allergy, Unknown, rash, 08/26/17) BEE STING (Unverified Allergy, Unknown, anaphylaxis, 08/26/17) Ketorolac Tromethamine (Unverified Allergy, Unknown, unknown, 08/26/17) Latex (Verified Allergy, Unknown, itching, swelling, 08/26/17) Oxycodone (Verified Allergy, Unknown, itching, 08/26/17) Barium Sulfate (Verified Adverse Reaction, Unknown, diarrhea, 08/26/17) Lobster (Verified Adverse Reaction, Unknown, nausea, diarrhea, 08/26/17) Pregabalin (Verified Adverse Reaction, Unknown, delusions, 08/26/17) Uncoded Allergies: SPLENDA (Allergy, Unknown, Nausea/Vomiting, 09/26/16) Home Medications Scheduled Budesonide (Entocort Ec), 9 MG PO DAILY Fluoxetine (Prozac), 40 MG PO HS Fluoxetine Hcl (Prozac), 20 MG PO HS Fluticasone Propionate (Nasal) (Flonase Allergy Relief ), 2 SPRAYS ROSARIO DAILY Loratadine (Claritin), 10 MG PO DAILY Montelukast Sodium (Singulair), 10 MG PO DAILY Pantoprazole (Protonix), 40 MG PO BID Pentosan Polysulfate Sodium (Elmiron), 300 MG PO BID Valacyclovir (Valtrex), 500 MG PO DAILY Scheduled PRN Alprazolam (Xanax), 0.5 MG PO BID PRN for Anxiety Baclofen (Lioresal), 10 MG PO TID PRN for Hiccups Diphenhy/Alum/Mag/Sucralfa (Magic Swizzle - Diphenhy/Alum/Mag/Sucralfa), 1 TSP PO Q4H PRN for SORE MOUTH Levalbuterol Tartrate (Levalbuterol Tartrate Hfa), 2 PUFFS INH Q4H PRN for Wheezing Metoclopramide Hcl (Reglan), 10 MG PO Q6H PRN for Nausea-Hiccups Morphine Sulfate (Morphine Sulfate Ir), 30 MG PO Q8 PRN for Pain Phenazopyridine HCl (Pyridium), 200 MG PO TID PRN for Bladder pain Prochlorperazine Maleate (Compazine), 10 MG PO TID PRN for Nausea Review of Systems Constitutional: No fever ENT: No sore throat Respiratory: No cough, No sputum, No wheezing, No shortness of breath Cardiovascular: No chest pain, No edema, No palpitations Abdomen: + pain, + nausea, + problem reported (increase ileostomy output) Musculoskeletal: No swelling Genitourinary - Female: No dysuria Neurologic: No paralysis, No numbness/tingling Psychiatric: + anxiety Endocrine: No fatigue Hematologic / Lymphatic: No night sweats Integumentary: No rash Physical Exam Vital Signs Date Time Temp Pulse Resp B/P (MAP) Pulse Ox O2 Delivery O2 Flow Rate FiO2 08/29/17 05:21 36.6 76 20 93/60 (71) 96 Room Air 08/29/17 05:02 83 20 126/74 98 Room Air 08/29/17 04:08 87 20 106/69 96 Room Air 08/29/17 03:44 89 16 109/66 Room Air 98 08/29/17 03:23 86 20 109/66 98 Room Air 08/29/17 01:40 101 08/29/17 01:39 83 20 100/65 100 Room Air 08/29/17 01:38 95 Room Air 08/29/17 00:51 37.0 108 20 108/74 97 Room Air General Appearance: no apparent distress Head: normocephalic, atraumatic Eyes: normal inspection, EOMI, sclerae normal ENT: normal ENT inspection, hearing grossly normal, pharynx normal Neck: supple, no JVD, trachea midline Respiratory/Chest: chest non-tender, lungs clear, normal breath sounds, no respiratory distress, no accessory muscle use Cardiovascular: regular rate, rhythm, no edema, no JVD Abdomen/GI: normal bowel sounds, soft, + pertinent finding (reports tenderness upon palpation near ostomy bag area of right side of abdomen) Back: normal inspection, no muscle spasm, normal range of motion Extremities/Musculoskelatal: normal inspection, no calf tenderness, no pedal edema, non-tender Neurologic/Psych: alert, normal mood/affect, oriented x 3 Skin: normal color, warm/dry, no rash Diagnostics Laboratory Results Results Past 24 Hours Test 08/29/17 01:20 08/29/17 01:29 Range/Units White Blood Count 5.45 4.8-10.8 K/uL Red Blood Count 4.96 4.2-5.4 M/uL Hemoglobin 13.4 12.0-16.0 g/dL Hematocrit 40.4 37-47 % Mean Corpuscular Volume 81.5 80-100 fL Mean Corpuscular Hemoglobin 27.0 25-34 pg Mean Corpuscular Hemoglobin Concent 33.2 32-36 g/dl Platelet Count 92 130-400 K/uL Mean Platelet Volume 10.2 7.4-10.4 fL Neutrophils (%) (Auto) 52.2 % Lymphocytes (%) (Auto) 33.6 % Monocytes (%) (Auto) 8.3 % Eosinophils (%) (Auto) 5.3 % Basophils (%) (Auto) 0.4 % Neutrophils # (Auto) 2.85 1.4-6.5 K/uL Lymphocytes # (Auto) 1.83 1.2-3.4 K/uL Monocytes # (Auto) 0.45 0.11-0.59 K/uL Eosinophils # (Auto) 0.29 0-0.5 K/uL Basophils # (Auto) 0.02 0-0.2 K/uL RDW Standard Deviation 43.7 36.4-46.3 fL RDW Coefficient of Variation 14.8 11.5-14.5 % Immature Granulocyte % (Auto) 0.2 % Immature Granulocyte # (Auto) 0.01 0.00-0.02 K/uL Platelet Estimate DECREASED Prothrombin Time 10.1 9.0-12.0 SECONDS Prothromb Time International Ratio 1.0 0.9-1.1 Activated Partial Thromboplast Time 28.2 21.0-31.0 SECONDS Partial Thromboplastin Ratio 1.1 Sodium Level 138 136-145 mmol/L Potassium Level 4.1 3.5-5.1 mmol/L Chloride Level 106 98-107 mmol/L Carbon Dioxide Level 26 21-32 mmol/L Anion Gap 6.0 3-11 mmol/L Blood Urea Nitrogen 15 7-18 mg/dl Creatinine 1.01 0.60-1.20 mg/dl Est Creatinine Clear Calc Drug Dose 67.6 ml/min Estimated GFR () 81.8 Estimated GFR (Non- 70.6 BUN/Creatinine Ratio 14.8 10-20 Random Glucose 81 70-99 mg/dl Calcium Level 9.0 8.5-10.1 mg/dl Magnesium Level 1.8 1.8-2.4 mg/dl Total Bilirubin 0.8 0.2-1 mg/dl Direct Bilirubin 0.1 0-0.2 mg/dl Aspartate Amino Transf (AST/SGOT) 23 15-37 U/L Alanine Aminotransferase (ALT/SGPT) 39 12-78 U/L Alkaline Phosphatase 113 45-117 U/L C-Reactive Protein 0.81 0-0.29 mg/dl Total Protein 7.4 6.4-8.2 gm/dl Albumin 4.0 3.4-5.0 gm/dl Lipase 230 73-393 U/L Human Chorionic Gonadotropin, Qual NEG NEG Erythrocyte Sedimentation Rate 9 0-21 mm/hr Impression Assessment and Plan Patient returns to the ED after evaluation on 08/26/17 for abdominal pain and vomiting with previous CT abdomen exam findings on 08/26/17 of "1. Postsurgical changes of a colectomy and right lower quadrant ileostomy 2. Mildly dilated fluid and feces filled distal small bowel loops. 3. Suspected minimal bowel wall thickening involving the distal ileal loop. 4. Findings are viewed as suspicious for a early or low-grade partial small bowel obstruction with possible active Crohn's versus an infectious ileitis." Patient reports that vomiting stopped but with increase ileostomy output and abdominal pain persists Abdominal pain / Crohn's disease Chest/Abdominal X ray performed on this ED presentation: pending radiology interpretation Gastroenterology consult requested for evaluation of abdominal pain and increased ileostomy output Patient reported to ED provider with concerns that there may be blood in ileostomy output but fecal occult blood test negative There is concern that patient may exhibit narcotic seeking behavior in the past - attempt to minimize narcotic medications in treating abdominal pain Continue Entocort and Bentyl Continue IV fluids GERD (gastroesophageal reflux disease) Pantoprazole Anxiety history on benzodiazepines Depression history continue Fluoxetine Migraine history: no acute headaches Thrombocytopenia and Iron deficiency anemia for which patient follows with [facility] Hematology Dr. 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 Y/N: Yes Risk Level: Moderate
--- NOTE | 2017-08-29 06:38 | EMERGENCY ROOM VISIT NOTE ---
ED Visit Note First contact with patient: 00:55 I have personally evaluated and examined this patient. I agree with assessment and plan of Ladonna Bey PA-C.
[2017-08-29] MEDS: SODIUM CHLORIDE 0.9% 1000ML 1,000 ML IV SCH ×2 (06:44→20:47)
--- NOTE | 2017-08-29 07:10 | DIAGNOSTIC IMAGING REPORT ---
PA CHEST WITH ABDOMINAL SERIES CLINICAL HISTORY: Generalized abdominal pain. FINDINGS: A PA chest radiograph is compared to study dated 12/11/2016. The cardiomediastinal silhouette is unremarkable. The lungs and pleural spaces are clear. No pneumothorax is seen. The bony thorax is grossly intact. Supine and erect abdominal radiographs are compared to study dated 12/11/2016 and correlated with abdominal CT dated 08/26/2017. There is a nonobstructed abdominal bowel gas pattern. An ostomy is noted in the right lower quadrant. No evidence of intraperitoneal free air is seen. There are no abnormal abdominal calcifications. The spleen is enlarged. Mild scoliosis is observed. The lumbosacral spine and bony pelvis appear intact. IMPRESSION: 1. No active disease in the chest. 2. Nonobstructed abdominal bowel gas pattern. 3. Splenomegaly. Electronically signed by: Nikolas Cervantes M.D. 08/29/2017 7:09 AM Dictated Date/Time: 08/29/2017 7:07 AM
[2017-08-29 07:39] VITALS: BP 103/67; PULSE 68; TEMP 36.4; O2SAT 99
[2017-08-29 08:21] LABS: HEMATOCRIT 34.9 % (37-47); HEMOGLOBIN 11.4 g/dL (12.0-16.0); MEAN CELL VOLUME 81.7 fL (80-100); MEAN CORPUSCULAR HEMOGLOBIN 26.7 pg (25-34); MEAN CORPUSCULAR HGB CONC 32.7 g/dl (32-36); RED CELL DISTRIBUTION WIDTH CV 14.8 % (11.5-14.5); RED CELL DISTRIBUTION WIDTH SD 43.6 fL (36.4-46.3); WHITE BLOOD COUNT 2.76 K/uL (4.8-10.8)
[2017-08-29 08:25] LABS: BASO % 0.4 %; BASO ABS # 0.01 K/uL (0-0.2); EOS % 5.4 %; EOS ABS # 0.15 K/uL (0-0.5); LYMPH % 40.6 %; LYMPH ABS # 1.12 K/uL (1.2-3.4); MEAN PLATELET VOLUME 10.2 fL (7.4-10.4); MONO ABS # 0.22 K/uL (0.11-0.59); NEUT % 45.6 %; NEUT ABS # 1.26 K/uL (1.4-6.5); PLATELET COUNT 63 K/uL (130-400)
[2017-08-29 08:44] LABS: ALBUMIN 3.3 gm/dl (3.4-5.0); CALCIUM 8.8 mg/dl (8.5-10.1); CREATININE 0.76 mg/dl (0.60-1.20); POTASSIUM 4.1 mmol/L (3.5-5.1)
[2017-08-29 08:52] LABS: TOTAL PROTEIN 5.9 gm/dl (6.4-8.2)
--- NOTE | 2017-08-29 09:34 | Progress Note ---
Medicine Progress Note Date & Time of Visit: Aug 29, 2017 at 09:34. Subjective patient seen resting in bed, comfortable states pain is mostly around the stoma site, moderate no active nausea denies fever/chills no other symptoms Objective Last 8 Hrs Date Time Temp Pulse Resp B/P (MAP) Pulse Ox O2 Delivery O2 Flow Rate FiO2 08/29/17 08:40 Room Air 08/29/17 07:39 36.4 68 16 103/67 (79) 99 Room Air 08/29/17 05:21 36.6 76 20 93/60 (71) 96 Room Air 08/29/17 05:02 83 20 126/74 98 Room Air 08/29/17 04:08 87 20 106/69 96 Room Air 08/29/17 03:44 89 16 109/66 Room Air 98 08/29/17 03:23 86 20 109/66 98 Room Air 08/29/17 01:40 101 08/29/17 01:39 83 20 100/65 100 Room Air 08/29/17 01:38 95 Room Air Physical Exam: General- oriented x 3, not in distress, speaks in sentences with no effort Eyes- EOMI, anicteric ENT- oropharynx clear Neck- supple, no JVD, no adenopathy, no thyromegaly Lungs- clear breath sounds bilaterally, no rales/wheezes Heart- regular rhythm; no murmur, normal rate Abdomen- normal bowel sounds, soft, non distended, ileostomy site appears clean/ no erythema/no warmth but has moderate tenderness Extremities- no pretibial edema, no calf tenderness Neuro- alert, oriented x 3;no gross focal deficits Skin- warm & dry Laboratory Results: Last 24 Hours Test 08/29/17 01:20 08/29/17 01:29 08/29/17 08:07 White Blood Count 5.45 K/uL 2.76 K/uL Red Blood Count 4.96 M/uL 4.27 M/uL Hemoglobin 13.4 g/dL 11.4 g/dL Hematocrit 40.4 % 34.9 % Mean Corpuscular Volume 81.5 fL 81.7 fL Mean Corpuscular Hemoglobin 27.0 pg 26.7 pg Mean Corpuscular Hemoglobin Concent 33.2 g/dl 32.7 g/dl Platelet Count 92 K/uL 63 K/uL Mean Platelet Volume 10.2 fL 10.2 fL Neutrophils (%) (Auto) 52.2 % 45.6 % Lymphocytes (%) (Auto) 33.6 % 40.6 % Monocytes (%) (Auto) 8.3 % 8.0 % Eosinophils (%) (Auto) 5.3 % 5.4 % Basophils (%) (Auto) 0.4 % 0.4 % Neutrophils # (Auto) 2.85 K/uL 1.26 K/uL Lymphocytes # (Auto) 1.83 K/uL 1.12 K/uL Monocytes # (Auto) 0.45 K/uL 0.22 K/uL Eosinophils # (Auto) 0.29 K/uL 0.15 K/uL Basophils # (Auto) 0.02 K/uL 0.01 K/uL RDW Standard Deviation 43.7 fL 43.6 fL RDW Coefficient of Variation 14.8 % 14.8 % Immature Granulocyte % (Auto) 0.2 % 0.0 % Immature Granulocyte # (Auto) 0.01 K/uL 0.00 K/uL Platelet Estimate DECREASED Prothrombin Time 10.1 SECONDS Prothromb Time International Ratio 1.0 Activated Partial Thromboplast Time 28.2 SECONDS Partial Thromboplastin Ratio 1.1 Sodium Level 138 mmol/L 142 mmol/L Potassium Level 4.1 mmol/L 4.1 mmol/L Chloride Level 106 mmol/L 113 mmol/L Carbon Dioxide Level 26 mmol/L 23 mmol/L Anion Gap 6.0 mmol/L 7.0 mmol/L Blood Urea Nitrogen 15 mg/dl 15 mg/dl Creatinine 1.01 mg/dl 0.76 mg/dl Est Creatinine Clear Calc Drug Dose 67.6 ml/min 89.8 ml/min Estimated GFR () 81.8 115.3 Estimated GFR (Non- 70.6 99.5 BUN/Creatinine Ratio 14.8 19.4 Random Glucose 81 mg/dl 95 mg/dl Calcium Level 9.0 mg/dl 8.8 mg/dl Magnesium Level 1.8 mg/dl 1.9 mg/dl Total Bilirubin 0.8 mg/dl 0.8 mg/dl Direct Bilirubin 0.1 mg/dl Aspartate Amino Transf (AST/SGOT) 23 U/L 16 U/L Alanine Aminotransferase (ALT/SGPT) 39 U/L 27 U/L Alkaline Phosphatase 113 U/L 84 U/L C-Reactive Protein 0.81 mg/dl Total Protein 7.4 gm/dl 5.9 gm/dl Albumin 4.0 gm/dl 3.3 gm/dl Lipase 230 U/L Human Chorionic Gonadotropin, Qual NEG Erythrocyte Sedimentation Rate 9 mm/hr Ovalocytes 1+ Globulin 2.6 gm/dl Albumin/Globulin Ratio 1.3 Assessment & Plan 37 year old female with history of Crohn's Disease s/p Ileostomy, Depression, Thrombocytopenia presenting with abdominal pain. ABDOMINAL PAIN - GI consulted possibly around the Stoma? - will wean off narcotics, consider pain management consult consider Surgical Eval if without any improvement appreciate GI SVC consult - ff up stool cultures THROMBOCYTOPENIA - no bleeding - ff up platelets SPLENOMEGALY - likely from #2 follows with Hematology DEPRESSION - continue usual medications DVT prophylaxis - SCDs for now Disposition pending anticipate d/c home when medically stable Current Inpatient Medications: Current Inpatient Medications Medications (Trade) Dose Ordered Sig/Tamar Route Start Time Stop Time Status Last Admin Dose Admin Alprazolam (Xanax Tab) 0.5 mg BID PRN PO 08/29/17 03:30 09/28/17 03:29 08/29/17 04:07 0.5 MG Baclofen (Lioresal Tab) 10 mg TID PRN PO 08/29/17 03:30 09/28/17 03:29 Budesonide (Entocort EC Cap) 9 mg DAILY PO 08/29/17 08:00 09/28/17 08:59 Fluoxetine HCl (Prozac Cap) 20 mg HS PO 08/29/17 21:00 09/28/17 20:59 Levalbuterol (Xopenex Hfa Inhaler) 2 puffs Q4H PRN INH 08/29/17 03:30 09/28/17 03:29 Metoclopramide HCl (Reglan Tab) 10 mg Q6H PRN PO 08/29/17 03:30 09/28/17 03:29 Montelukast Sodium (Singulair Tab) 10 mg DAILY PO 08/29/17 08:00 09/28/17 08:59 Pantoprazole Sodium (Protonix Tab) 40 mg BID PO 08/29/17 08:00 09/28/17 08:59 Phenazopyridine HCl (Pyridium Tab) 200 mg TID PRN PO 08/29/17 03:30 09/28/17 03:29 Prochlorperazine Maleate (Compazine Tab) 10 mg TID PRN PO 08/29/17 03:30 09/28/17 03:29 Valacyclovir HCl (Valtrex Tab) 500 mg DAILY PO 08/29/17 08:00 09/08/17 08:59 Acetaminophen 100 ml @ 400 mls/hr Q8H PRN IV 08/29/17 03:30 09/28/17 03:29 Miscellaneous (Iv Fluids Completed) 1 ea PRN PRN N/A 08/29/17 05:00 08/29/18 04:59 Al Hydroxide/Mg Hydroxide/ Diphenhydramine HCl/Lidocaine HCl/ Sucralfate/Barcode Q4H PRN PO 08/29/17 06:45 Sodium Chloride 1,000 ml @ 75 mls/hr [id number] IV 08/29/17 07:00 09/28/17 06:59 08/29/17 06:44 75 MLS/HR
[2017-08-29] MEDS: BUDESONIDE EC 3 MG CAP PO SCH (12:22)
[2017-08-29] MEDS: MONTELUKAST SOD 10 MG TAB PO SCH (12:22)
[2017-08-29] MEDS: PANTOprazole SOD 40 MG TAB PO SCH ×2 (12:22→20:48)
--- NOTE | 2017-08-29 12:24 | Gastrointestinal Consultation ---
Gastrointestinal Consultation Date of Consultation: Aug 29, 2017 Attending Physician: Dr. Mosley Consulting Physician: Rocio Thornton PA-C Reason for Consultation: Abdominal pain History of Present Illness Patient is a 37 year old female with an extensive history of Crohn's disease s/ p colectomy with ileostomy for questionable colon and rectal cancer. She follows with Dr. Kan at [facility]. She has been admitted intermittently with abdominal pain in the past. She is on Budesonide for her Crohn's Disease. She has not been able to take more aggressive therapy due to her leukopenia that has been chronic. She was admitted in March of 2017 with similar symptoms. She reports that several days ago she had an exacerbation of her chronic abdominal pain. She reports that the pain is only surrounding her stoma. She called Dr. Kan and reported pain and bloody output. Upon arrival to the ED, output from her ostomy was tested and was negative for blood. A CT scan was performed several days ago on 08/26 in the ED and indicated postsurgical changes, mildly dilated fluid and feces filled distal small bowel loops. There was suspected minimal bowel wall thickening involving the distal ileal loop which is a finding that has persisted for some time and is questionable post- surgical scarring. The findings were viewed as suspicious for an early or low- grade partial SBO with possible active Crohn's vs infectious ileitis. The patient did have an abdominal xray on admission that did not indicate any obstruction. She has a history of narcotic seeking behavior in the past and has been difficult to manage. Past Medical/Surgical History Medical Problems: (1) Abdominal pain Status: Acute (2) Abdominal pain Status: Acute (3) Abdominal pain Status: Acute (4) Abdominal pain Status: Acute (5) Abnormal vaginal bleeding Status: Acute (6) Crohn's disease Status: Acute (7) Crohns disease Status: Acute (8) Dehydration Status: Acute (9) Dehydration Status: Acute (10) Dehydration Status: Acute (11) Diffuse abdominal pain Status: Acute (12) Headache Status: Acute (13) Hypotension Status: Acute (14) Intractable abdominal pain Status: Acute (15) Leukopenia Status: Acute (16) Lower abdominal pain Status: Acute (17) Paronychia of toe of left foot Status: Acute (18) Small bowel obstruction Status: Acute (19) Symptoms of urinary tract infection Status: Acute (20) Urinary tract infection Status: Acute (21) UTI (urinary tract infection) Status: Acute (22) UTI (urinary tract infection) Status: Acute (23) UTI (urinary tract infection) Status: Acute Past Medical History: Crohn's Disease, ANxiety, colon dysplasia, depression, endometriosis, fibromyalgia, AN, interstitial cystitis, Raynauds, Migraines, chronic leukopenia, thrombocytopenia Past Surgical History: colectomy with ileostomy, EGD, colonoscopy, ex-lap, appendectomy, hysterectomy Family History Diabetes mellitus FH: depression FH: heart disease FHx: cancer FHx: gallbladder disease Hypertension Social History Smoking Status: Never Smoker Alcohol Use: occasionally Drug Use: none Marital Status: Housing Status: lives with significant other Occupation Status: disabled Allergies Coded Allergies: Clarithromycin (Verified Allergy, Severe, breathing problems, 08/26/17) Hydromorphone (Verified Allergy, Intermediate, RASH, 08/26/17) pt sasy she is allergic Ondansetron (Verified Allergy, Intermediate, itching, 08/26/17) Peanut (Verified Allergy, Intermediate, Rash and itchiness, 08/26/17) Hydroxyzine (Verified Allergy, Mild, itching, 08/26/17) Adhesives (Verified Allergy, Unknown, itching, swelling, 08/26/17) Albuterol (Verified Allergy, Unknown, rash, 08/26/17) BEE STING (Unverified Allergy, Unknown, anaphylaxis, 08/26/17) Ketorolac Tromethamine (Unverified Allergy, Unknown, unknown, 08/26/17) Latex (Verified Allergy, Unknown, itching, swelling, 08/26/17) Oxycodone (Verified Allergy, Unknown, itching, 08/26/17) Barium Sulfate (Verified Adverse Reaction, Unknown, diarrhea, 08/26/17) Lobster (Verified Adverse Reaction, Unknown, nausea, diarrhea, 08/26/17) Pregabalin (Verified Adverse Reaction, Unknown, delusions, 08/26/17) Uncoded Allergies: SPLENDA (Allergy, Unknown, Nausea/Vomiting, 09/26/16) Current Medications Home Meds and Scripts Medications Dose Route/Sig Max Daily Dose Days Date Category Dose Instructions Valtrex (Valacyclovir HCl) 500 Mg Tab 500 Mg PO DAILY 08/26/17 Reported Magic Swizzle - Diphenhy/Alum/Mag/Sucralfa (Miscellaneous Medication) Susp 1 Tsp PO Q4H PRN 07/12/17 Reported 30ML DIPHENHYDRAMINE SLN 12.5/5ML 60ML MAALOX 4GM CARAFATE SWISH AND SPIT Xanax (Alprazolam) 0.5 Mg Tab 0.5 Mg PO BID PRN 07/04/17 Reported Reglan (Metoclopramide Hcl) 10 Mg Tab 10 Mg PO Q6H PRN 04/16/17 Reported NAUSEA Entocort Ec (Budesonide) 3 Mg Cap 9 Mg PO DAILY 03/28/17 Reported Pyridium (Phenazopyridine HCl) 200 Mg Tab 200 Mg PO TID PRN 12/26/16 Reported Claritin (Loratadine) 10 Mg Tab 10 Mg PO DAILY 12/11/16 Reported Prozac (Fluoxetine HCl) 40 Mg Cap 40 Mg PO HS 12/11/16 Reported TAKE ONE 40 MG CAPSULE ALONG WITH ONE 20 MG CAPSULE TO EQUAL 60 MG DAILY DOSE Levalbuterol Tartrate Hfa (Levalbuterol Tartrate) 45 Mcg/Act Aer 2 Puffs INH Q4H PRN 09/26/16 Reported Prozac (Fluoxetine Hcl) 20 Mg Cap 20 Mg PO HS 09/26/16 Reported TAKE ONE 20 MG CAPSULE ALONG WITH ONE 40 MG CAPSULE TO EQUAL 60 MG DAILY DOSE Compazine (Prochlorperazine Maleate) 10 Mg Tab 10 Mg PO TID PRN 09/26/16 Reported Morphine Sulfate Ir (Morphine Sulfate) 15 Mg Tab 30 Mg PO Q8 PRN 09/26/16 Reported Protonix (Pantoprazole) 40 Mg Tab 40 Mg PO BID 09/26/16 Reported Lioresal (Baclofen) 10 Mg Tab 10 Mg PO TID PRN 03/13/16 Reported Flonase Allergy Relief Ch (Fluticasone Propionate (Nasal)) 50 Mcg/Act Spr 2 Sprays ROSARIO DAILY 01/30/16 Reported Singulair (Montelukast Sodium) 10 Mg Tab 10 Mg PO DAILY 01/14/16 Reported Elmiron (Pentosan Polysulfate Sodium) 100 Mg Cap 300 Mg PO BID 01/14/16 Reported TAKE THIS MEDICATION TWICE DAILY WITH WATER 1 TO 2 HOURS AFTER A MEAL Review of Systems Constitutional: + fatigue, No fever, No chills Respiratory: No cough, No shortness of breath Cardiac: No chest pain Abdomen: + pain (specifically reports pain surrounding ostomy site), + diarrhea Musculoskeletal: No joint pain Psych: No problem reported Skin: No problem reported Physical Exam Date Time Temp Pulse Resp B/P (MAP) Pulse Ox O2 Delivery O2 Flow Rate FiO2 08/29/17 08:40 Room Air 08/29/17 07:39 36.4 68 16 103/67 (79) 99 Room Air 08/29/17 05:21 36.6 76 20 93/60 (71) 96 Room Air 08/29/17 05:02 83 20 126/74 98 Room Air 08/29/17 04:08 87 20 106/69 96 Room Air 08/29/17 03:44 89 16 109/66 Room Air 98 08/29/17 03:23 86 20 109/66 98 Room Air 08/29/17 01:40 101 08/29/17 01:39 83 20 100/65 100 Room Air 08/29/17 01:38 95 Room Air 08/29/17 00:51 37.0 108 20 108/74 97 Room Air General Appearance: WD/WN, no apparent distress Eyes: normal inspection, PERRL Respiratory/Chest: lungs clear Cardiovascular: regular rate, rhythm Abdomen: normal bowel sounds, non tender, soft Extremities: non-tender Neurologic/Psych: alert, oriented x 3 Skin: normal color Laboratory Results Last 24 Hours Test 08/29/17 01:20 08/29/17 01:29 08/29/17 08:07 White Blood Count 5.45 K/uL 2.76 K/uL Red Blood Count 4.96 M/uL 4.27 M/uL Hemoglobin 13.4 g/dL 11.4 g/dL Hematocrit 40.4 % 34.9 % Mean Corpuscular Volume 81.5 fL 81.7 fL Mean Corpuscular Hemoglobin 27.0 pg 26.7 pg Mean Corpuscular Hemoglobin Concent 33.2 g/dl 32.7 g/dl Platelet Count 92 K/uL 63 K/uL Mean Platelet Volume 10.2 fL 10.2 fL Neutrophils (%) (Auto) 52.2 % 45.6 % Lymphocytes (%) (Auto) 33.6 % 40.6 % Monocytes (%) (Auto) 8.3 % 8.0 % Eosinophils (%) (Auto) 5.3 % 5.4 % Basophils (%) (Auto) 0.4 % 0.4 % Neutrophils # (Auto) 2.85 K/uL 1.26 K/uL Lymphocytes # (Auto) 1.83 K/uL 1.12 K/uL Monocytes # (Auto) 0.45 K/uL 0.22 K/uL Eosinophils # (Auto) 0.29 K/uL 0.15 K/uL Basophils # (Auto) 0.02 K/uL 0.01 K/uL RDW Standard Deviation 43.7 fL 43.6 fL RDW Coefficient of Variation 14.8 % 14.8 % Immature Granulocyte % (Auto) 0.2 % 0.0 % Immature Granulocyte # (Auto) 0.01 K/uL 0.00 K/uL Platelet Estimate DECREASED Prothrombin Time 10.1 SECONDS Prothromb Time International Ratio 1.0 Activated Partial Thromboplast Time 28.2 SECONDS Partial Thromboplastin Ratio 1.1 Sodium Level 138 mmol/L 142 mmol/L Potassium Level 4.1 mmol/L 4.1 mmol/L Chloride Level 106 mmol/L 113 mmol/L Carbon Dioxide Level 26 mmol/L 23 mmol/L Anion Gap 6.0 mmol/L 7.0 mmol/L Blood Urea Nitrogen 15 mg/dl 15 mg/dl Creatinine 1.01 mg/dl 0.76 mg/dl Est Creatinine Clear Calc Drug Dose 67.6 ml/min 89.8 ml/min Estimated GFR () 81.8 115.3 Estimated GFR (Non- 70.6 99.5 BUN/Creatinine Ratio 14.8 19.4 Random Glucose 81 mg/dl 95 mg/dl Calcium Level 9.0 mg/dl 8.8 mg/dl Magnesium Level 1.8 mg/dl 1.9 mg/dl Total Bilirubin 0.8 mg/dl 0.8 mg/dl Direct Bilirubin 0.1 mg/dl Aspartate Amino Transf (AST/SGOT) 23 U/L 16 U/L Alanine Aminotransferase (ALT/SGPT) 39 U/L 27 U/L Alkaline Phosphatase 113 U/L 84 U/L C-Reactive Protein 0.81 mg/dl Total Protein 7.4 gm/dl 5.9 gm/dl Albumin 4.0 gm/dl 3.3 gm/dl Lipase 230 U/L Human Chorionic Gonadotropin, Qual NEG Erythrocyte Sedimentation Rate 9 mm/hr Ovalocytes 1+ Globulin 2.6 gm/dl Albumin/Globulin Ratio 1.3 Impression Patient is a 37 year old female with abdominal pain around stoma. The patient has a history of Crohn's Disease s/p colectomy with ileostomy. She also has a history of GERD. Plan 1) Continue Budesonide 9 mg po daily. 2) Abdominal xray indicated a nonobstructive pattern compared to CT from 08/26. Given the patient reports her pain is only surrounding her stoma, could consider surgical evaluation. Patient does follow as an outpatient with Dr. Kan at [facility]. 3) Check C diff, stool culture now given reports of increased ostomy output. 4) Continue Protonix 40 mg daily for history of GERD. 5) Supportive care per primary team. Thank you for allowing us to participate in the care of this patient. If you should have any further questions or concerns, do not hesitate to contact us. Agree with FRANKY Abdullahi as above Abd: Soft, NT, ND, +BS Continue current therapy Would not continue Narcotic analgesics for treatment of Crohn's disease, as they may worsen symptoms, especially in case where ileus/obstruction was considered Recommend pain management consult for their input regarding control of her Chronic pain.
[2017-08-29] MEDS: MoRPHine SULFATE 4 MG/ML 1 ML CARP\\VIAL IV PRN ×2 (12:26→20:52)
[2017-08-29 14:44] VITALS: Ht 172.7 cm; Wt 59.6 kg
[2017-08-29 15:08] VITALS: BP 103/70; PULSE 94; TEMP 36.8; O2SAT 99
[2017-08-29] MEDS: ACETAMINOPHEN IV 100 ML IV PRN (16:49)
[2017-08-29] MEDS: BOOST BREEZE NUTRITION DRINK 1 BOX PO SCH (19:04)
[2017-08-29 20:11] VITALS: BP 91/57; PULSE 89; TEMP 37; O2SAT 95
[2017-08-29] MEDS: FLUOXETINE HCL 20 MG CAP PO SCH ×2 (20:48→20:49)
[2017-08-29 23:07] VITALS: BP 96/64; PULSE 89; TEMP 36.4; O2SAT 98
[2017-08-30 04:05] VITALS: BP 93/59; PULSE 75; TEMP 36.5; O2SAT 98
[2017-08-30 07:17] LABS: HEMATOCRIT 28.8 % (37-47); HEMOGLOBIN 9.5 g/dL (12.0-16.0); MEAN CELL VOLUME 81.1 fL (80-100); MEAN CORPUSCULAR HEMOGLOBIN 26.8 pg (25-34); MEAN PLATELET VOLUME 9.4 fL (7.4-10.4); PLATELET COUNT 50 K/uL (130-400); RED CELL DISTRIBUTION WIDTH CV 14.5 % (11.5-14.5); RED CELL DISTRIBUTION WIDTH SD 43.3 fL (36.4-46.3); WHITE BLOOD COUNT 1.72 K/uL (4.8-10.8)
[2017-08-30 07:18] LABS: CREATININE 0.79 mg/dl (0.60-1.20); POTASSIUM 3.9 mmol/L (3.5-5.1)
[2017-08-30 07:21] LABS: BASO % 0.6 %; BASO ABS # 0.01 K/uL (0-0.2); EOS % 2.9 %; EOS ABS # 0.05 K/uL (0-0.5); LYMPH % 48.8 %; LYMPH ABS # 0.84 K/uL (1.2-3.4); MONO % 6.4 %; MONO ABS # 0.11 K/uL (0.11-0.59); NEUT % 41.3 %; NEUT ABS # 0.71 K/uL (1.4-6.5)
[2017-08-30 07:47] VITALS: BP 88/58; PULSE 70; TEMP 36.3; O2SAT 98
[2017-08-30] MEDS: BUDESONIDE EC 3 MG CAP PO SCH (08:19)
[2017-08-30] MEDS: PANTOprazole SOD 40 MG TAB PO SCH ×2 (08:19→20:40)
[2017-08-30] MEDS: BOOST BREEZE NUTRITION DRINK 1 BOX PO SCH ×2 (08:19→15:30)
[2017-08-30] MEDS: MONTELUKAST SOD 10 MG TAB PO SCH (08:19)
[2017-08-30] MEDS: SODIUM CHLORIDE 0.9% 1000ML 1,000 ML IV SCH ×2 (08:20→22:11)
[2017-08-30] MEDS ORDERED: MoRPHine SULFATE IR 15 MG TAB (IMMEDIATE RELEASE) PO PRN (09:30)
[2017-08-30] MEDS ORDERED: MoRPHine SULFATE 4 MG/ML 1 ML CARP\\VIAL IV PRN (09:45)
--- NOTE | 2017-08-30 10:00 | Progress Note ---
Medicine Progress Note Date & Time of Visit: Aug 30, 2017 at 09:56. Subjective patient seen resting in bed, appears comfortable, more alert states she still has pain/tenderness on the stoma site, had some bleeding on the site yesterday feels gassy, has loose stools no chest pain, dyspnea, dizziness, palpitations no other symptoms Objective Last 8 Hrs Date Time Temp Pulse Resp B/P (MAP) Pulse Ox O2 Delivery O2 Flow Rate FiO2 08/30/17 08:39 Room Air 08/30/17 07:47 36.3 70 16 88/58 (68) 98 Room Air 08/30/17 04:05 36.5 75 18 93/59 (70) 98 Room Air Physical Exam: General- oriented x 3, not in distress, speaks in sentences with no effort Eyes- anicteric Neck- supple, no JVD Lungs- clear breath sounds bilaterally, no rales/wheezes Heart- regular rhythm; no murmur, normal rate Abdomen- normal bowel sounds, soft, non distended, ileostomy site appears clean/ no erythema/no warmth but still has moderate tenderness Extremities- no pretibial edema, no calf tenderness Neuro- alert, oriented x 3;no gross focal deficits Skin- warm & dry Laboratory Results: Last 24 Hours Test 08/30/17 06:39 08/30/17 09:45 White Blood Count 1.72 K/uL Red Blood Count 3.55 M/uL Hemoglobin 9.5 g/dL Hematocrit 28.8 % Mean Corpuscular Volume 81.1 fL Mean Corpuscular Hemoglobin 26.8 pg Mean Corpuscular Hemoglobin Concent 33.0 g/dl Platelet Count 50 K/uL Mean Platelet Volume 9.4 fL Neutrophils (%) (Auto) 41.3 % Lymphocytes (%) (Auto) 48.8 % Monocytes (%) (Auto) 6.4 % Eosinophils (%) (Auto) 2.9 % Basophils (%) (Auto) 0.6 % Neutrophils # (Auto) 0.71 K/uL Lymphocytes # (Auto) 0.84 K/uL Monocytes # (Auto) 0.11 K/uL Eosinophils # (Auto) 0.05 K/uL Basophils # (Auto) 0.01 K/uL RDW Standard Deviation 43.3 fL RDW Coefficient of Variation 14.5 % Immature Granulocyte % (Auto) 0.0 % Immature Granulocyte # (Auto) 0.00 K/uL Ovalocytes 1+ Sodium Level 140 mmol/L Potassium Level 3.9 mmol/L Chloride Level 112 mmol/L Carbon Dioxide Level 24 mmol/L Anion Gap 4.0 mmol/L Blood Urea Nitrogen 10 mg/dl Creatinine 0.79 mg/dl Est Creatinine Clear Calc Drug Dose 87.9 ml/min Estimated GFR () 110.1 Estimated GFR (Non- 95.0 BUN/Creatinine Ratio 12.5 Random Glucose 88 mg/dl Calcium Level 8.0 mg/dl Transferrin % Saturation % Date/Time Source Procedure Growth Status 08/29/17 15:15 Stool C.difficile Toxin B Gene (PCR) - Final No C. difficile toxin B gene detected Complete 08/29/17 15:15 Stool Shiga Toxin Test Pending Received 08/29/17 15:15 Stool Stool Culture Pending Received Assessment & Plan 37 year old female with history of Crohn's Disease s/p Ileostomy, Depression, Thrombocytopenia presenting with abdominal pain. PAIN OVER ILEOSTOMY STOMA - GI consulted has history of adhesions on the ileostomy site consulted Ostomy nurse for further recommendations - GI concerned re: chronic Morphine use in the setting of Crohn's disease will consult Pain Management, patient agreeable - C diff negative PANCYTOPENIA, SPLENOMEGALY history of chronic thrombocytopenia - no signs of active infection UA pending - no signs of active bleeding -- discussed with Dr. Arredondo Peripheral smear, anemia panel, etc. ordered CT abdomen ordered DEPRESSION - continue usual medications DVT prophylaxis - SCDs for now due to low Plt encouraged to ambulate Disposition pending anticipate d/c home when medically stable Current Inpatient Medications: Current Inpatient Medications Medications (Trade) Dose Ordered Sig/Tamar Route Start Time Stop Time Status Last Admin Dose Admin Baclofen (Lioresal Tab) 10 mg TID PRN PO 08/29/17 03:30 09/28/17 03:29 Budesonide (Entocort EC Cap) 9 mg DAILY PO 08/29/17 08:00 09/28/17 08:59 08/30/17 08:19 9 MG Fluoxetine HCl (Prozac Cap) 20 mg HS PO 08/29/17 21:00 09/28/17 20:59 08/29/17 20:48 20 MG Levalbuterol (Xopenex Hfa Inhaler) 2 puffs Q4H PRN INH 08/29/17 03:30 09/28/17 03:29 Metoclopramide HCl (Reglan Tab) 10 mg Q6H PRN PO 08/29/17 03:30 09/28/17 03:29 Montelukast Sodium (Singulair Tab) 10 mg DAILY PO 08/29/17 08:00 09/28/17 08:59 08/30/17 08:19 10 MG Pantoprazole Sodium (Protonix Tab) 40 mg BID PO 08/29/17 08:00 09/28/17 08:59 08/30/17 08:19 40 MG Phenazopyridine HCl (Pyridium Tab) 200 mg TID PRN PO 08/29/17 03:30 09/28/17 03:29 Prochlorperazine Maleate (Compazine Tab) 10 mg TID PRN PO 08/29/17 03:30 09/28/17 03:29 Valacyclovir HCl (Valtrex Tab) 500 mg DAILY PO 08/29/17 08:00 09/08/17 08:59 08/30/17 08:19 500 MG Acetaminophen 100 ml @ 400 mls/hr Q8H PRN IV 08/29/17 03:30 09/28/17 03:29 08/29/17 16:49 400 MLS/HR Miscellaneous (Iv Fluids Completed) 1 ea PRN PRN N/A 08/29/17 05:00 08/29/18 04:59 Al Hydroxide/Mg Hydroxide/ Diphenhydramine HCl/Lidocaine HCl/ Sucralfate/Barcode Q4H PRN PO 08/29/17 06:45 Sodium Chloride 1,000 ml @ 75 mls/hr [id number] IV 08/29/17 07:00 09/28/17 06:59 08/30/17 08:20 75 MLS/HR Fluoxetine HCl (Prozac Cap) 40 mg HS PO 08/29/17 21:00 09/28/17 20:59 08/29/17 20:49 40 MG Enteral Nutritional Formula (Boost Breeze Nutritional Drink) 1 box BIDM PO 08/29/17 17:00 09/28/17 16:59 08/30/17 08:19 1 BOX Alprazolam (Xanax Tab) 1 mg HS PRN PO 08/29/17 20:00 09/28/17 19:59 08/29/17 23:32 1 MG Alprazolam (Xanax Tab) 0.5 mg QAM PRN PO 08/29/17 20:00 09/28/17 19:59 Morphine Sulfate (MoRPHine SULFATE INJ) 4 mg Q8H PRN IV 08/30/17 09:45 09/13/17 09:44 UNV
[2017-08-30 10:30] LABS: RETIC COUNT % 1.4 % (0.5-2.0)
[2017-08-30 11:26] VITALS: BP 112/78; PULSE 86; TEMP 36.6; O2SAT 100
--- NOTE | 2017-08-30 11:42 | Gastroenterology Progress Note ---
Progress Note Date of Service: Aug 30, 2017 Subjective Pt evaluation today including: conversation w/ patient, physical exam, lab review, review of studies Patient is a 37 yo female with a history of Crohn's Disease s/p colostomy and ileostomy. She reports 6-8/10 pain around the ostomy site. She is reporting that the site does not look good when she removes her bag. She is neutropenic. She reports loose output from her ostomy. Her stool culture & C diff studies are unremarkable. She is requesting to see her international logistics manager as well as a wound care nurse due to her ostomy concerns. Review of Systems Constitutional: No fever, No chills Respiratory: No shortness of breath Cardiac: No chest pain Abdomen: + pain, No nausea, No vomiting, No diarrhea, No constipation, No GI bleeding Musculoskeletal: No joint pain Endo: No fatigue Medications Current Inpatient Medications Medications (Trade) Dose Ordered Sig/Tamar Route Start Time Stop Time Status Last Admin Dose Admin Baclofen (Lioresal Tab) 10 mg TID PRN PO 08/29/17 03:30 09/28/17 03:29 Budesonide (Entocort EC Cap) 9 mg DAILY PO 08/29/17 08:00 09/28/17 08:59 08/30/17 08:19 9 MG Fluoxetine HCl (Prozac Cap) 20 mg HS PO 08/29/17 21:00 09/28/17 20:59 08/29/17 20:48 20 MG Levalbuterol (Xopenex Hfa Inhaler) 2 puffs Q4H PRN INH 08/29/17 03:30 09/28/17 03:29 Metoclopramide HCl (Reglan Tab) 10 mg Q6H PRN PO 08/29/17 03:30 09/28/17 03:29 Montelukast Sodium (Singulair Tab) 10 mg DAILY PO 08/29/17 08:00 09/28/17 08:59 08/30/17 08:19 10 MG Pantoprazole Sodium (Protonix Tab) 40 mg BID PO 08/29/17 08:00 09/28/17 08:59 08/30/17 08:19 40 MG Phenazopyridine HCl (Pyridium Tab) 200 mg TID PRN PO 08/29/17 03:30 09/28/17 03:29 Prochlorperazine Maleate (Compazine Tab) 10 mg TID PRN PO 08/29/17 03:30 09/28/17 03:29 Valacyclovir HCl (Valtrex Tab) 500 mg DAILY PO 08/29/17 08:00 09/08/17 08:59 08/30/17 08:19 500 MG Acetaminophen 100 ml @ 400 mls/hr Q8H PRN IV 08/29/17 03:30 09/28/17 03:29 08/29/17 16:49 400 MLS/HR Miscellaneous (Iv Fluids Completed) 1 ea PRN PRN N/A 08/29/17 05:00 08/29/18 04:59 Al Hydroxide/Mg Hydroxide/ Diphenhydramine HCl/Lidocaine HCl/ Sucralfate/Barcode Q4H PRN PO 08/29/17 06:45 Sodium Chloride 1,000 ml @ 75 mls/hr [id number] IV 08/29/17 07:00 09/28/17 06:59 08/30/17 08:20 75 MLS/HR Fluoxetine HCl (Prozac Cap) 40 mg HS PO 08/29/17 21:00 09/28/17 20:59 08/29/17 20:49 40 MG Enteral Nutritional Formula (Boost Breeze Nutritional Drink) 1 box BIDM PO 08/29/17 17:00 09/28/17 16:59 08/30/17 08:19 1 BOX Alprazolam (Xanax Tab) 1 mg HS PRN PO 08/29/17 20:00 09/28/17 19:59 08/29/17 23:32 1 MG Alprazolam (Xanax Tab) 0.5 mg QAM PRN PO 08/29/17 20:00 09/28/17 19:59 Morphine Sulfate (MoRPHine SULFATE INJ) 2 mg Q6H PRN IV 08/30/17 11:00 09/13/17 09:44 Future hold Objective Vital Signs Date Time Temp Pulse Resp B/P (MAP) Pulse Ox O2 Delivery O2 Flow Rate FiO2 08/30/17 11:26 36.6 86 16 112/78 (89) 100 Room Air 08/30/17 08:39 Room Air 08/30/17 07:47 36.3 70 16 88/58 (68) 98 Room Air 08/30/17 04:05 36.5 75 18 93/59 (70) 98 Room Air 08/30/17 00:05 Room Air 08/29/17 23:07 36.4 89 16 96/64 (75) 98 Room Air 08/29/17 20:11 37.0 89 20 91/57 (68) 95 Room Air 08/29/17 16:00 Room Air 08/29/17 15:08 36.8 94 16 103/70 (81) 99 Room Air Physical Exam General Appearance: WD/WN, no apparent distress Eyes: normal inspection, PERRL Respiratory/Chest: lungs clear, normal breath sounds Cardiovascular: regular rate, rhythm Abdomen: normal bowel sounds, + guarding, + tenderness Extremities: non-tender Neurologic/Psych: alert, oriented x 3 Skin: normal color Laboratory Results Last 24 Hours Test 08/30/17 00:00 08/30/17 06:39 08/30/17 10:01 Urine Color YELLOW Urine Appearance CLEAR Urine pH 5.0 Urine Specific [place] 1.009 Urine Protein NEG Urine Glucose (UA) NEG Urine Ketones NEG Urine Occult Blood NEG Urine Nitrite NEG Urine Bilirubin NEG Urine Urobilinogen NEG Urine Leukocyte Esterase TRACE Urine WBC (Auto) 1-5 /hpf Urine RBC (Auto) 0-4 /hpf Urine Hyaline Casts (Auto) 1-5 /lpf Urine Epithelial Cells (Auto) 0-5 /lpf Urine Bacteria (Auto) NEG White Blood Count 1.72 K/uL Red Blood Count 3.55 M/uL Hemoglobin 9.5 g/dL Hematocrit 28.8 % Mean Corpuscular Volume 81.1 fL Mean Corpuscular Hemoglobin 26.8 pg Mean Corpuscular Hemoglobin Concent 33.0 g/dl Platelet Count 50 K/uL Mean Platelet Volume 9.4 fL Neutrophils (%) (Auto) 41.3 % Lymphocytes (%) (Auto) 48.8 % Monocytes (%) (Auto) 6.4 % Eosinophils (%) (Auto) 2.9 % Basophils (%) (Auto) 0.6 % Neutrophils # (Auto) 0.71 K/uL Lymphocytes # (Auto) 0.84 K/uL Monocytes # (Auto) 0.11 K/uL Eosinophils # (Auto) 0.05 K/uL Basophils # (Auto) 0.01 K/uL RDW Standard Deviation 43.3 fL RDW Coefficient of Variation 14.5 % Immature Granulocyte % (Auto) 0.0 % Immature Granulocyte # (Auto) 0.00 K/uL Ovalocytes 1+ Sodium Level 140 mmol/L Potassium Level 3.9 mmol/L Chloride Level 112 mmol/L Carbon Dioxide Level 24 mmol/L Anion Gap 4.0 mmol/L Blood Urea Nitrogen 10 mg/dl Creatinine 0.79 mg/dl Est Creatinine Clear Calc Drug Dose 87.9 ml/min Estimated GFR () 110.1 Estimated GFR (Non- 95.0 BUN/Creatinine Ratio 12.5 Random Glucose 88 mg/dl Calcium Level 8.0 mg/dl Immature Platelet Fraction 3.8 % Absolute Reticulocyte Count 0.05 10^6/uL Percent Reticulocyte Count 1.4 % Iron Level 33 mcg/dl Total Iron Binding Capacity 381 mcg/dl Transferrin 297 mg/dl Transferrin % Saturation 8 % Ferritin 23.0 ng/ml Vitamin B12 Level 365 pg/mL Folate 9.66 ng/mL Assessment and Plan Patient is a 37 yo female with a past medical history of Crohn's Disease s/p colectomy & ileostomy with chronic pain surrounding her stoma. 1) Recommend pain management consult. Recommend that she not be given narcotics as these will decrease GI motility. 2) Continue Budesonide 9 mg po daily as prescribed by her surgeon at [facility]. 3) Wound care ostomy nurse consult for further evaluation of patient's complaints. 4) Would plan for re-imaging to exclude any obstruction. Patient is having a CT of the abdomen/pelvis today instead of an abdominal xray per hematology's request. 5) Supportive care per primary team. If CT is unremarkable/unchanged GI will sign off at that time. She should follow -up with her surgeon at [facility] with further concerns regarding her pain surrounding the stoma. Agree with FRANKY Abdullahi as above Abd: Soft, NT, ND, +BS Recommend decreasing Morphine as it is not indicated in the treatment of Crohn' s Disease, and may actually be worsening her motility in the peristomal area. Continue current therapy Will follow clinical course and make further recommendations as needed.
--- NOTE | 2017-08-30 13:22 | DIAGNOSTIC IMAGING REPORT ---
CT ABD/PELVIS IV CONTRAST ONLY CLINICAL HISTORY: Abdominal pain. Splenomegaly. COMPARISON STUDY: 08/26/2017 TECHNIQUE: Following the IV administration of 94 mL of Optiray-320, CT scan of the abdomen and pelvis was performed from the lung bases to the proximal femurs. Images are reviewed in the axial, sagittal, and coronal planes. IV contrast was administered without complication. A dose lowering technique was utilized adhering to the principles of ALARA. CT DOSE: 412.75 mGycm FINDINGS: Lower chest: The heart is normal in size and configuration, without pericardial effusion. The lung bases and pleural spaces are clear. Liver: The contrast-enhanced liver is normal in size, contour, and attenuation. There is no intrahepatic biliary ductal dilatation. The hepatic veins and portal veins are patent. Gallbladder: Contracted Spleen: The spleen is likely enlarged, however it is difficult to measure as it is a very several attenuation to a prominent left lobe of the liver. Pancreas: Unremarkable. Adrenal glands: Unremarkable. Kidneys: There is symmetric renal cortical enhancement. The kidneys are normal in size without hydronephrosis. Bowel: There is a right lower quadrant ileostomy. There is bowel wall thickening involving the loops just proximal to the ostomy. There is a small bowel feces sign. There is also gastric distention and mild bowel wall thickening involving the gastric antrum. There are postsurgical changes of a colectomy. Peritoneum: There is trace free pelvic fluid. There is no free air. Vasculature: The abdominal aorta is normal in course and caliber. Adenopathy: None. Pelvic viscera: The uterus is surgically absent Skeletal structures: No destructive osseous lesions are seen. IMPRESSION: 1. Postsurgical changes of a colectomy and right lower quadrant ileostomy 2. Mildly distended distal small bowel loops just proximal to the ostomy with bowel wall thickening and mild mesenteric fluid. The findings are viewed as suspicious for active Crohn's disease. Also evident is mild gastric distention and gastric antral wall thickening 3. Stable splenomegaly Electronically signed by: Jamie Ortiz M.D. 08/30/2017 1:21 PM Dictated Date/Time: 08/30/2017 1:11 PM
[2017-08-30] MEDS: ACETAMINOPHEN IV 100 ML IV PRN (15:28)
[2017-08-30 16:14] VITALS: BP 115/76; PULSE 88; TEMP 36.5; O2SAT 99
[2017-08-30] MEDS: ALPRAZOLAM 0.5 MG TAB PO PRN (16:58)
[2017-08-30] MEDS: MoRPHine SULFATE 2 MG/ML CARP IV PRN (18:32)
--- NOTE | 2017-08-30 19:15 | Medical Consult ---
Consultation Date of Consultation: Aug 30, 2017. Attending Physician: Santino Mosley MD Reason for Consultation: Pancytopenia History of Present Illness 37 year old female with Chron's disease, chronic thrombocytopenia, splenomegaly reported on some of her CT scans, admitted with abdominal pain at the ostomy site. She states that she vomited yesterday and had worsening abdominal pain, also that she noticed blood in her stool yesterday and around her ostomy so she came back to ER for evaluation and she is admitted for further management. She had a normal WBC 5.54 and Normal differential and normal hemoglobin level of 13.4, and platelet count was 92,000 Her counts have worsened since admission and now has worsening counts with WBC dropping to 2.76 and was repeated and was lower at WBC 1.7 Hemoglobin dropped to 11.4 and is now down to 9.5 platelet count dropped to 63 and now down to 50 She denies any epistaxis She denies any fever or chills. She states that she noticed occasional sweats recently She states that her nausea has resolved She denies any known sick contacts She denies any dysuria and states that she has not been on antibiotic recently. c diff negative and stool culture prelim negative Past Medical/Surgical History PMH/PSH Chron's disease, iron deficiency anemia, chronic thrombocytopenia, neutropenia on prior admissions in setting of antibiotic, splenomegaly, anxiety/ depression, fibromyalgia, endometriosis, hysterectomy, colectomy w/ ileostomy, appendectomy Medical Problems: (1) Abdominal pain Status: Acute (2) Abdominal pain Status: Acute (3) Abdominal pain Status: Acute (4) Abdominal pain Status: Acute (5) Abnormal vaginal bleeding Status: Acute (6) Crohn's disease Status: Acute (7) Crohns disease Status: Acute (8) Dehydration Status: Acute (9) Dehydration Status: Acute (10) Dehydration Status: Acute (11) Diffuse abdominal pain Status: Acute (12) Headache Status: Acute (13) Hypotension Status: Acute (14) Intractable abdominal pain Status: Acute (15) Leukopenia Status: Acute (16) Lower abdominal pain Status: Acute (17) Paronychia of toe of left foot Status: Acute (18) Small bowel obstruction Status: Acute (19) Symptoms of urinary tract infection Status: Acute (20) Urinary tract infection Status: Acute (21) UTI (urinary tract infection) Status: Acute (22) UTI (urinary tract infection) Status: Acute (23) UTI (urinary tract infection) Status: Acute Family History Diabetes mellitus FH: depression FH: heart disease FHx: cancer FHx: gallbladder disease Hypertension Social History Smoking Status: Never Smoker Drug Use: none Marital Status: Housing Status: lives with significant other Occupation Status: disabled Allergies Coded Allergies: Clarithromycin (Verified Allergy, Severe, breathing problems, 08/26/17) Hydromorphone (Verified Allergy, Intermediate, RASH, 08/26/17) pt sasy she is allergic Ondansetron (Verified Allergy, Intermediate, itching, 08/26/17) Peanut (Verified Allergy, Intermediate, Rash and itchiness, 08/26/17) Hydroxyzine (Verified Allergy, Mild, itching, 08/26/17) Adhesives (Verified Allergy, Unknown, itching, swelling, 08/26/17) Albuterol (Verified Allergy, Unknown, rash, 08/26/17) BEE STING (Unverified Allergy, Unknown, anaphylaxis, 08/26/17) Ketorolac Tromethamine (Unverified Allergy, Unknown, unknown, 08/26/17) Latex (Verified Allergy, Unknown, itching, swelling, 08/26/17) Oxycodone (Verified Allergy, Unknown, itching, 08/26/17) Barium Sulfate (Verified Adverse Reaction, Unknown, diarrhea, 08/26/17) Lobster (Verified Adverse Reaction, Unknown, nausea, diarrhea, 08/26/17) Pregabalin (Verified Adverse Reaction, Unknown, delusions, 08/26/17) Uncoded Allergies: SPLENDA (Allergy, Unknown, Nausea/Vomiting, 09/26/16) Current Inpatient Medications Current Inpatient Medications Medications (Trade) Dose Ordered Sig/Tamar Route Start Time Stop Time Status Last Admin Dose Admin Baclofen (Lioresal Tab) 10 mg TID PRN PO 08/29/17 03:30 09/28/17 03:29 Budesonide (Entocort EC Cap) 9 mg DAILY PO 08/29/17 08:00 09/28/17 08:59 08/30/17 08:19 9 MG Fluoxetine HCl (Prozac Cap) 20 mg HS PO 08/29/17 21:00 09/28/17 20:59 08/29/17 20:48 20 MG Levalbuterol (Xopenex Hfa Inhaler) 2 puffs Q4H PRN INH 08/29/17 03:30 09/28/17 03:29 Metoclopramide HCl (Reglan Tab) 10 mg Q6H PRN PO 08/29/17 03:30 09/28/17 03:29 Montelukast Sodium (Singulair Tab) 10 mg DAILY PO 08/29/17 08:00 09/28/17 08:59 08/30/17 08:19 10 MG Pantoprazole Sodium (Protonix Tab) 40 mg BID PO 08/29/17 08:00 09/28/17 08:59 08/30/17 08:19 40 MG Phenazopyridine HCl (Pyridium Tab) 200 mg TID PRN PO 08/29/17 03:30 09/28/17 03:29 Valacyclovir HCl (Valtrex Tab) 500 mg DAILY PO 08/29/17 08:00 09/08/17 08:59 08/30/17 08:19 500 MG Acetaminophen 100 ml @ 400 mls/hr Q8H PRN IV 08/29/17 03:30 09/28/17 03:29 08/30/17 15:28 400 MLS/HR Miscellaneous (Iv Fluids Completed) 1 ea PRN PRN N/A 08/29/17 05:00 08/29/18 04:59 Al Hydroxide/Mg Hydroxide/ Diphenhydramine HCl/Lidocaine HCl/ Sucralfate/Barcode Q4H PRN PO 08/29/17 06:45 Sodium Chloride 1,000 ml @ 75 mls/hr [id number] IV 08/29/17 07:00 09/28/17 06:59 08/30/17 08:20 75 MLS/HR Fluoxetine HCl (Prozac Cap) 40 mg HS PO 08/29/17 21:00 09/28/17 20:59 08/29/17 20:49 40 MG Enteral Nutritional Formula (Boost Breeze Nutritional Drink) 1 box BIDM PO 08/29/17 17:00 09/28/17 16:59 08/30/17 15:30 1 BOX Alprazolam (Xanax Tab) 1 mg HS PRN PO 08/29/17 20:00 09/28/17 19:59 08/29/17 23:32 1 MG Alprazolam (Xanax Tab) 0.5 mg QAM PRN PO 08/29/17 20:00 09/28/17 19:59 08/30/17 16:58 0.5 MG Morphine Sulfate (MoRPHine SULFATE INJ) 2 mg Q6H PRN IV 08/30/17 11:00 09/13/17 09:44 Future hold 08/30/17 18:32 2 MG Iron Sucrose 200 mg/Sodium Chloride 110 ml @ 420 mls/hr TODAY IV 08/30/17 18:30 08/30/17 18:46 UNV Review of Systems Constitutional: + sweats (occasional), + fatigue, No fever, No chills ENT: No unusual epistaxis, No nasal symptoms, No sore throat Respiratory: No cough, No sputum, No wheezing, No shortness of breath, No dyspnea on exertion Cardiovascular: No chest pain, No edema Abdomen: + GI bleeding (she reports has seen blood in stool and in ostomy yesterday), No pain, No nausea, No vomiting Genitourinary - Female: No dysuria, No urinary frequency Neurologic: No numbness/tingling Endocrine: + fatigue Hematologic / Lymphatic: + problem reported (easy bruising) Integumentary: No rash, No itch Physical Exam Date Time Temp Pulse Resp B/P (MAP) Pulse Ox O2 Delivery O2 Flow Rate FiO2 08/30/17 16:15 Room Air 08/30/17 16:14 36.5 88 18 115/76 (89) 99 Room Air 08/30/17 11:26 36.6 86 16 112/78 (89) 100 Room Air 08/30/17 08:39 Room Air 08/30/17 07:47 36.3 70 16 88/58 (68) 98 Room Air 08/30/17 04:05 36.5 75 18 93/59 (70) 98 Room Air 08/30/17 00:05 Room Air 08/29/17 23:07 36.4 89 16 96/64 (75) 98 Room Air 08/29/17 20:11 37.0 89 20 91/57 (68) 95 Room Air General Appearance: WD/WN, no apparent distress Head: normocephalic, atraumatic Eyes: EOMI, sclerae normal ENT: pharynx normal Neck: supple, no adenopathy, no JVD Respiratory/Chest: chest non-tender, lungs clear, normal breath sounds, no respiratory distress, no accessory muscle use Cardiovascular: regular rate, rhythm, no edema, no murmur Abdomen/GI: soft, + tenderness (mild around ostomy site, no guarding) Back: normal inspection Extremities/Musculoskelatal: no calf tenderness, no pedal edema, non-tender Neurologic/Psych: alert, oriented x 3 Skin: warm/dry, no rash (small old ecchymoses on legs) Lymphatic: no adenopathy Laboratory Results Last 24 Hours Test 08/30/17 00:00 08/30/17 06:39 08/30/17 10:01 Urine Color YELLOW Urine Appearance CLEAR Urine pH 5.0 Urine Specific [place] 1.009 Urine Protein NEG Urine Glucose (UA) NEG Urine Ketones NEG Urine Occult Blood NEG Urine Nitrite NEG Urine Bilirubin NEG Urine Urobilinogen NEG Urine Leukocyte Esterase TRACE Urine WBC (Auto) 1-5 /hpf Urine RBC (Auto) 0-4 /hpf Urine Hyaline Casts (Auto) 1-5 /lpf Urine Epithelial Cells (Auto) 0-5 /lpf Urine Bacteria (Auto) NEG White Blood Count 1.72 K/uL Red Blood Count 3.55 M/uL Hemoglobin 9.5 g/dL Hematocrit 28.8 % Mean Corpuscular Volume 81.1 fL Mean Corpuscular Hemoglobin 26.8 pg Mean Corpuscular Hemoglobin Concent 33.0 g/dl Platelet Count 50 K/uL Mean Platelet Volume 9.4 fL Neutrophils (%) (Auto) 41.3 % Lymphocytes (%) (Auto) 48.8 % Monocytes (%) (Auto) 6.4 % Eosinophils (%) (Auto) 2.9 % Basophils (%) (Auto) 0.6 % Neutrophils # (Auto) 0.71 K/uL Lymphocytes # (Auto) 0.84 K/uL Monocytes # (Auto) 0.11 K/uL Eosinophils # (Auto) 0.05 K/uL Basophils # (Auto) 0.01 K/uL RDW Standard Deviation 43.3 fL RDW Coefficient of Variation 14.5 % Immature Granulocyte % (Auto) 0.0 % Immature Granulocyte # (Auto) 0.00 K/uL Ovalocytes 1+ Peripheral Blood Smear Path Consult Sodium Level 140 mmol/L Potassium Level 3.9 mmol/L Chloride Level 112 mmol/L Carbon Dioxide Level 24 mmol/L Anion Gap 4.0 mmol/L Blood Urea Nitrogen 10 mg/dl Creatinine 0.79 mg/dl Est Creatinine Clear Calc Drug Dose 87.9 ml/min Estimated GFR () 110.1 Estimated GFR (Non- 95.0 BUN/Creatinine Ratio 12.5 Random Glucose 88 mg/dl Calcium Level 8.0 mg/dl Immature Platelet Fraction 3.8 % Absolute Reticulocyte Count 0.05 10^6/uL Percent Reticulocyte Count 1.4 % Iron Level 33 mcg/dl Total Iron Binding Capacity 381 mcg/dl Transferrin 297 mg/dl Transferrin % Saturation 8 % Ferritin 23.0 ng/ml Vitamin B12 Level 365 pg/mL Folate 9.66 ng/mL CT abd/pel IMPRESSION: 1. Postsurgical changes of a colectomy and right lower quadrant ileostomy 2. Mildly distended distal small bowel loops just proximal to the ostomy with bowel wall thickening and mild mesenteric fluid. The findings are viewed as suspicious for active Crohn's disease. Also evident is mild gastric distention and gastric antral wall thickening 3. Stable splenomegaly Assessment & Plan 37 year old female with history of Chrons and chronic thrombocytopenia, suggested splenomegaly on some of her abdominal imaging and history of iron deficiency anemia She has had neutropenia in the past but usually occurred in the setting of recent antibiotics She is admitted with abdominal pain On admission she had a normal WBC and deifferential but her WBC has worsened since admission as well as her thrombocytopenia has worsened since admission Etiology of the worsening blood counts from her baseline with neutropenia and thrombocytopenia may be due to medication effect causing marrow suppression recommend discontinue compazine and avoid any medications that can cause or worsen pancytopenia as much as possible She had received a dose of IV compazine yesterday which can affect the blood counts Platelet destruction from autoimmune process appears less likely as the immature platelet fraction was not elevated neutropenia precautions and monitor the CBC w/ differential daily Worsening anemia - she reports GI blood loss - recommend GI follow up iron deficiency due to chronic blood loss- give venofer 200mg IV x1 follow up in the office upon discharge. I discussed with her that if her WBC does not improve back to baseline, then we would need to consider bone marrow aspirate and biopsy She is not keen on bone marrow aspirate and biopsy with local anesthesia. check PNH flow, methylmalonic acid and copper recommend close observation of the CBC No indication for transfusion at this time. I discussed B/R/A of venofer with her and she agreed to venofer and it was ordered F/U in the office upon discharge thank you for consult
[2017-08-30 20:07] VITALS: BP 107/61; PULSE 90; TEMP 37; O2SAT 99
[2017-08-30] MEDS ORDERED: IRON SUCROSE INJ 200 MG in SODIUM CHLORIDE 0.9% 100ML 100 ML IV SCH (20:30)
[2017-08-30] MEDS: FLUOXETINE HCL 20 MG CAP PO SCH ×2 (20:39→20:40)
[2017-08-30] MEDS ORDERED: NURSING VERBAL MED ORDER ONE (22:30)
[2017-08-31 00:15] VITALS: BP 106/71; PULSE 83; TEMP 36.5; O2SAT 97
[2017-08-31] MEDS: ACETAMINOPHEN IV 100 ML IV PRN (00:51)
[2017-08-31] MEDS: ALPRAZOLAM 0.5 MG TAB PO PRN ×2 (01:14→20:49)
[2017-08-31 03:58] VITALS: BP 97/67; PULSE 76; TEMP 36.4; O2SAT 97
[2017-08-31] MEDS: MoRPHine SULFATE 2 MG/ML CARP IV PRN ×2 (04:02→15:29)
[2017-08-31 07:55] VITALS: BP 103/69; PULSE 67; TEMP 36.5; O2SAT 100
[2017-08-31 08:04] LABS: CALCIUM 8.3 mg/dl (8.5-10.1); CREATININE 0.84 mg/dl (0.60-1.20); POTASSIUM 3.7 mmol/L (3.5-5.1)
[2017-08-31 08:16] LABS: HEMOGLOBIN 9.3 g/dL (12.0-16.0); MEAN CELL VOLUME 81.2 fL (80-100); MEAN CORPUSCULAR HGB CONC 33.2 g/dl (32-36); PLATELET COUNT 53 K/uL (130-400); RED CELL DISTRIBUTION WIDTH CV 14.7 % (11.5-14.5); RED CELL DISTRIBUTION WIDTH SD 43.4 fL (36.4-46.3); WHITE BLOOD COUNT 1.36 K/uL (4.8-10.8)
[2017-08-31 08:18] LABS: BASO % 0.7 %; BASO ABS # 0.01 K/uL (0-0.2); EOS % 2.2 %; EOS ABS # 0.03 K/uL (0-0.5); LYMPH % 48.5 %; LYMPH ABS # 0.66 K/uL (1.2-3.4); MONO % 8.8 %; MONO ABS # 0.12 K/uL (0.11-0.59); NEUT % 39.8 %; NEUT ABS # 0.54 K/uL (1.4-6.5)
[2017-08-31] MEDS: MONTELUKAST SOD 10 MG TAB PO SCH (11:14)
[2017-08-31] MEDS: BOOST BREEZE NUTRITION DRINK 1 BOX PO SCH ×2 (11:14→19:17)
[2017-08-31] MEDS: PANTOprazole SOD 40 MG TAB PO SCH ×2 (11:15→20:52)
[2017-08-31] MEDS: BUDESONIDE EC 3 MG CAP PO SCH (11:16)
[2017-08-31 11:45] VITALS: BP 98/63; PULSE 88; TEMP 36.3; O2SAT 98
[2017-08-31] MEDS: SODIUM CHLORIDE 0.9% 1000ML 1,000 ML IV SCH (12:20)
--- NOTE | 2017-08-31 13:36 | GASTROENTEROLOGY PROGRESS NOTE ---
DATE: 08/31/2017 RACE: . SUBJECTIVE: I had the pleasure of seeing Nya Geronimo at bedside today. She continues to have vague of GI complaints including a thickened output from her ostomy and abdominal distention. She states that she has made minimal improvement since she has been here in regards to her symptoms that she presented for. She is tolerating p.o. intake and per nursing eats 100% of her tray. She denies any further complaints. She did have some blood in her ostomy previously, though this has stopped. She has no further complaints. PHYSICAL EXAMINATION: VITAL SIGNS: Temp 36.3, pulse 88, respirations 16, blood pressure 98/63, pulse ox 98% on room air. GENERAL: She is awake, cooperative, chronic ill appearing. No acute distress. CHEST: Clear to auscultation bilaterally. CARDIOVASCULAR SYSTEM: Regular rate and rhythm. ABDOMEN: Soft, nontender, nondistended. There are positive bowel sounds. Ileostomy is present in the right upper quadrant. EXTREMITIES: No clubbing, cyanosis, or edema. LABORATORY STUDIES: White blood cell count 1.36, hemoglobin 9.3, hematocrit 28.0, and platelet count of 53. IMPRESSION: A 37-year-old female with Crohn disease status post colectomy with ileostomy and peristomal pain. PLAN: At the present time, I would continue her on budesonide 9 mg daily. Pain management will be seeing the patient as well. I appreciate Dr. Arredondo's input in regards to the patient's pancytopenia. Further testing is pending. I would again hold on narcotic analgesics in the treatment of her symptoms as they can decrease GI motility throughout her GI tract and could worsen her symptoms. I will follow her clinical course and make further recommendations as needed. Once again, thanks for allowing me to participate in the care of this patient. If you have any further questions, please do not hesitate in contacting me.
[2017-08-31 15:38] VITALS: BP 114/78; PULSE 83; TEMP 36.5; O2SAT 99
[2017-08-31] MEDS ORDERED: FLUTICASONE PROPIONATE NA SPR 16 GM BTL NAE ONE (17:54)
--- NOTE | 2017-08-31 18:03 | Progress Note ---
Medicine Progress Note Date & Time of Visit: Aug 31, 2017 at 17:56. Subjective seen sitting up in bed, appears comfortable finished plate of food and pudding had loose BMs x2 today no nausea still reports pain on the stoma site no bleeding no other symptoms Objective Last 8 Hrs Date Time Temp Pulse Resp B/P (MAP) Pulse Ox O2 Delivery O2 Flow Rate FiO2 08/31/17 16:00 Room Air 08/31/17 15:38 36.5 83 18 114/78 (90) 99 Room Air 08/31/17 11:45 36.3 88 16 98/63 (75) 98 Room Air Physical Exam: General- oriented x 3, not in distress, speaks in sentences with no effort Eyes- anicteric Neck- no JVD Lungs- clear BS bilaterally, no rales/wheezes Heart- regular rhythm; no murmur, normal rate Abdomen- normal bowel sounds, soft, non distended, ileostomy site appears clean/ no erythema/no warmth, has mild tenderness Extremities- no pretibial edema, no calf tenderness Neuro- alert, oriented x 3;no gross focal deficits Skin- warm & dry Laboratory Results: Last 24 Hours Test 08/31/17 07:08 White Blood Count 1.36 K/uL Red Blood Count 3.45 M/uL Hemoglobin 9.3 g/dL Hematocrit 28.0 % Mean Corpuscular Volume 81.2 fL Mean Corpuscular Hemoglobin 27.0 pg Mean Corpuscular Hemoglobin Concent 33.2 g/dl Platelet Count 53 K/uL Mean Platelet Volume 9.0 fL Neutrophils (%) (Auto) 39.8 % Lymphocytes (%) (Auto) 48.5 % Monocytes (%) (Auto) 8.8 % Eosinophils (%) (Auto) 2.2 % Basophils (%) (Auto) 0.7 % Neutrophils # (Auto) 0.54 K/uL Lymphocytes # (Auto) 0.66 K/uL Monocytes # (Auto) 0.12 K/uL Eosinophils # (Auto) 0.03 K/uL Basophils # (Auto) 0.01 K/uL RDW Standard Deviation 43.4 fL RDW Coefficient of Variation 14.7 % Immature Granulocyte % (Auto) 0.0 % Immature Granulocyte # (Auto) 0.00 K/uL Platelet Estimate DECREASED Sodium Level 141 mmol/L Potassium Level 3.7 mmol/L Chloride Level 110 mmol/L Carbon Dioxide Level 24 mmol/L Anion Gap 7.0 mmol/L Blood Urea Nitrogen 15 mg/dl Creatinine 0.84 mg/dl Est Creatinine Clear Calc Drug Dose 82.7 ml/min Estimated GFR () 102.2 Estimated GFR (Non- 88.2 BUN/Creatinine Ratio 17.3 Random Glucose 93 mg/dl Calcium Level 8.3 mg/dl Assessment & Plan 37 year old female with history of Crohn's Disease s/p Ileostomy, Depression, Thrombocytopenia presenting with abdominal pain. PAIN OVER ILEOSTOMY STOMA - GI consulted has history of adhesions on the ileostomy site consulted Ostomy nurse for further recommendations- Ostomy ring changed - GI concerned re: chronic Morphine use in the setting of Crohn's disease consulted Pain Management, patient agreeable Dr. Sy recommends continue usual PO Morphine and add PRN Morphine IV for breakthrough - continue to monitor - C diff negative PANCYTOPENIA, SPLENOMEGALY history of chronic thrombocytopenia - no signs of active infection - no signs of active bleeding -- discussed with Dr. Arredondo Peripheral smear, anemia panel, etc. ordered CT abdomen ordered -- levels about the same will continue to monitor DEPRESSION - continue usual medications DVT prophylaxis - SCDs for now due to low Plt encouraged to ambulate Disposition pending anticipate d/c home when medically stable Current Inpatient Medications: Current Inpatient Medications Medications (Trade) Dose Ordered Sig/Tamar Route Start Time Stop Time Status Last Admin Dose Admin Baclofen (Lioresal Tab) 10 mg TID PRN PO 08/29/17 03:30 09/28/17 03:29 Budesonide (Entocort EC Cap) 9 mg DAILY PO 08/29/17 08:00 09/28/17 08:59 08/31/17 11:16 9 MG Fluoxetine HCl (Prozac Cap) 20 mg HS PO 08/29/17 21:00 09/28/17 20:59 08/30/17 20:39 20 MG Levalbuterol (Xopenex Hfa Inhaler) 2 puffs Q4H PRN INH 08/29/17 03:30 09/28/17 03:29 Metoclopramide HCl (Reglan Tab) 10 mg Q6H PRN PO 08/29/17 03:30 09/28/17 03:29 Montelukast Sodium (Singulair Tab) 10 mg DAILY PO 08/29/17 08:00 09/28/17 08:59 08/31/17 11:14 10 MG Pantoprazole Sodium (Protonix Tab) 40 mg BID PO 08/29/17 08:00 09/28/17 08:59 08/31/17 11:15 40 MG Phenazopyridine HCl (Pyridium Tab) 200 mg TID PRN PO 08/29/17 03:30 09/28/17 03:29 Valacyclovir HCl (Valtrex Tab) 500 mg DAILY PO 08/29/17 08:00 09/08/17 08:59 08/31/17 11:14 500 MG Acetaminophen 100 ml @ 400 mls/hr Q8H PRN IV 08/29/17 03:30 09/28/17 03:29 08/31/17 00:51 400 MLS/HR Miscellaneous (Iv Fluids Completed) 1 ea PRN PRN N/A 08/29/17 05:00 08/29/18 04:59 Al Hydroxide/Mg Hydroxide/ Diphenhydramine HCl/Lidocaine HCl/ Sucralfate/Barcode Q4H PRN PO 08/29/17 06:45 Sodium Chloride 1,000 ml @ 75 mls/hr [id number] IV 08/29/17 07:00 09/28/17 06:59 08/31/17 12:20 75 MLS/HR Fluoxetine HCl (Prozac Cap) 40 mg HS PO 08/29/17 21:00 09/28/17 20:59 08/30/17 20:40 40 MG Enteral Nutritional Formula (Boost Breeze Nutritional Drink) 1 box BIDM PO 08/29/17 17:00 09/28/17 16:59 08/31/17 11:14 1 BOX Alprazolam (Xanax Tab) 1 mg HS PRN PO 08/29/17 20:00 09/28/17 19:59 08/31/17 01:14 1 MG Alprazolam (Xanax Tab) 0.5 mg QAM PRN PO 08/29/17 20:00 09/28/17 19:59 08/30/17 16:58 0.5 MG Morphine Sulfate (MoRPHine SULFATE INJ) 2 mg Q6H PRN IV 08/30/17 11:00 09/13/17 09:44 Future hold 08/31/17 15:29 2 MG
[2017-08-31 19:14] VITALS: BP 110/73; PULSE 97; TEMP 37.2; O2SAT 97
[2017-08-31] MEDS: MoRPHine SULFATE IR 15 MG TAB (IMMEDIATE RELEASE) PO PRN (19:17)
[2017-08-31] MEDS: FLUOXETINE HCL 20 MG CAP PO SCH ×2 (20:50→20:51)
[2017-08-31] MEDS: PENTOSAN POLYSULFATE SODIUM 100 MG CAP PO SCH (20:50)
[2017-08-31] MEDS: ALUMINUM/MAGNESIUM SUSP 50 ML, DiphenhydrAMINE HCL SYRUP 125 MG, LIDOCAINE HCL 2% VISCO... PO PRN ×4 (20:56)
[2017-09-01] VITALS (7 sets, daily range): BP systolic 87–113; BP diastolic 53–77; PULSE 72–91; TEMP 36.5–37.1; O2SAT 95–98
[2017-09-01] MEDS: MoRPHine SULFATE 2 MG/ML CARP IV PRN ×3 (01:56→18:45)
[2017-09-01] MEDS: SODIUM CHLORIDE 0.9% 1000ML 1,000 ML IV SCH ×2 (02:17→15:16)
[2017-09-01] MEDS: ACETAMINOPHEN IV 100 ML IV PRN ×2 (05:39→21:26)
[2017-09-01 06:35] LABS: MEAN CORPUSCULAR HGB CONC 32.2 g/dl (32-36); MEAN PLATELET VOLUME 9.1 fL (7.4-10.4); PLATELET COUNT 61 K/uL (130-400)
[2017-09-01 06:45] LABS: HEMATOCRIT 28.6 % (37-47); HEMOGLOBIN 9.2 g/dL (12.0-16.0); MEAN CELL VOLUME 81.5 fL (80-100); MEAN CORPUSCULAR HEMOGLOBIN 26.2 pg (25-34); RED CELL DISTRIBUTION WIDTH CV 14.6 % (11.5-14.5); WHITE BLOOD COUNT 1.87 K/uL (4.8-10.8)
[2017-09-01 06:54] LABS: CALCIUM 8.1 mg/dl (8.5-10.1); CREATININE 0.7 mg/dl (0.60-1.20); POTASSIUM 3.8 mmol/L (3.5-5.1)
[2017-09-01] MEDS: FLUTICASONE PROPIONATE NA SPR 16 GM BTL NAE SCH (09:14)
[2017-09-01] MEDS: BOOST BREEZE NUTRITION DRINK 1 BOX PO SCH ×2 (09:14→19:35)
[2017-09-01] MEDS: MONTELUKAST SOD 10 MG TAB PO SCH (09:15)
[2017-09-01] MEDS: PENTOSAN POLYSULFATE SODIUM 100 MG CAP PO SCH ×2 (09:15→21:26)
[2017-09-01] MEDS: PANTOprazole SOD 40 MG TAB PO SCH ×2 (09:15→21:26)
[2017-09-01] MEDS: BUDESONIDE EC 3 MG CAP PO SCH (09:16)
--- NOTE | 2017-09-01 13:12 | DIAGNOSTIC IMAGING REPORT ---
CHEST AND ABDOMEN 2 VIEWS HISTORY: Abnormal CT scan COMPARISON: Chest and abdomen 08/29/2017. FINDINGS: The lungs are clear. The heart is normal in size. No pneumoperitoneum. No pneumatosis. There is a right lower quadrant ostomy site. No dilated loops of bowel. Dextroscoliosis of the lumbar spine. No renal or ureteral calculi. The spleen remains mildly enlarged. The bladder appears mildly distended. IMPRESSION: 1. No acute process within the chest. 2. No dilated loops of bowel to suggest an obstruction. 3. Stable splenomegaly. 4. Mildly distended bladder. Electronically signed by: Pancho Maria M.D. 09/01/2017 1:11 PM Dictated Date/Time: 09/01/2017 1:08 PM
[2017-09-01] MEDS: MoRPHine SULFATE IR 15 MG TAB (IMMEDIATE RELEASE) PO PRN (14:47)
--- NOTE | 2017-09-01 17:25 | Progress Note ---
Medicine Progress Note Date & Time of Visit: Sep 01, 2017 at 17:21. Subjective seen resting in bed, comfortable, mom at bedside smiling states her abdomen feels about the same, has more formed stools though, no nausea but has some bloating reports increased tremors - which happens occasionally, denies anxiety denies other symptoms Objective Last 8 Hrs Date Time Temp Pulse Resp B/P (MAP) Pulse Ox O2 Delivery O2 Flow Rate FiO2 09/01/17 14:50 37.1 91 16 110/74 (86) 97 09/01/17 11:09 37.1 90 16 104/70 (81) 95 Physical Exam: General- oriented x 3, not in distress, speaks in sentences with no effort Eyes- anicteric Neck- no JVD Lungs- clear breath sounds bilaterally Heart- regular rhythm; no murmur, normal rate Abdomen- normal bowel sounds, soft, non distended Extremities- no pretibial edema, no calf tenderness Neuro- alert, oriented x 3;no gross focal deficits Skin- warm & dry Laboratory Results: Last 24 Hours Test 09/01/17 05:57 White Blood Count 1.87 K/uL Red Blood Count 3.51 M/uL Hemoglobin 9.2 g/dL Hematocrit 28.6 % Mean Corpuscular Volume 81.5 fL Mean Corpuscular Hemoglobin 26.2 pg Mean Corpuscular Hemoglobin Concent 32.2 g/dl Platelet Count 61 K/uL Mean Platelet Volume 9.1 fL RDW Standard Deviation 43.0 fL RDW Coefficient of Variation 14.6 % Neutrophils % (Manual) 45.6 % Lymphocytes % (Manual) 44.5 % Monocytes % (Manual) 4.5 % Eosinophils % (Manual) 1.8 % Basophils % (Manual) 3.6 % Neutrophils # (Manual) 0.85 K/uL Total Absolute Neutrophils 0.85 K/uL Lymphocytes # (Manual) 0.83 K/uL Total Absolute Lymphocytes 0.83 K/uL Monocytes # (Manual) 0.08 K/uL Eosinophils # (Manual) 0.03 K/uL Basophils # (Manual) 0.07 K/uL Sodium Level 140 mmol/L Potassium Level 3.8 mmol/L Chloride Level 108 mmol/L Carbon Dioxide Level 25 mmol/L Anion Gap 7.0 mmol/L Blood Urea Nitrogen 9 mg/dl Creatinine 0.70 mg/dl Est Creatinine Clear Calc Drug Dose 100.6 ml/min Estimated GFR () 127.4 Estimated GFR (Non- 109.9 BUN/Creatinine Ratio 13.5 Random Glucose 93 mg/dl Calcium Level 8.1 mg/dl Assessment & Plan 37 year old female with history of Crohn's Disease s/p Ileostomy, Depression, Thrombocytopenia presenting with abdominal pain. PAIN OVER ILEOSTOMY STOMA - GI consulted has history of adhesions on the ileostomy site consulted Ostomy nurse for further recommendations- Ostomy ring changed - GI concerned re: chronic Morphine use in the setting of Crohn's disease consulted Pain Management, patient agreeable Dr. Sy recommends continue usual PO Morphine and add PRN Morphine IV for breakthrough - repeat abd xray: no obstruction - improving trial of Simethicone, Bentyl for bloating, dyspepsis - continue to monitor - C diff negative PANCYTOPENIA, SPLENOMEGALY history of chronic thrombocytopenia - no signs of active infection - no signs of active bleeding -- discussed with Dr. Arredondo Peripheral smear, anemia panel, etc. ordered CT abdomen ordered -- WBC slightly improved, Hg and Plt about the same no fever, no bleeding will continue to monitor TREMORS - patient states she follows with Dr. Morgan for this will consult neuro DEPRESSION - continue usual medications DVT prophylaxis - SCDs for now due to low Plt encouraged to ambulate Disposition pending anticipate d/c home when medically stable Current Inpatient Medications: Current Inpatient Medications Medications (Trade) Dose Ordered Sig/Tamar Route Start Time Stop Time Status Last Admin Dose Admin Baclofen (Lioresal Tab) 10 mg TID PRN PO 08/29/17 03:30 09/28/17 03:29 Budesonide (Entocort EC Cap) 9 mg DAILY PO 08/29/17 08:00 09/28/17 08:59 09/01/17 09:16 9 MG Fluoxetine HCl (Prozac Cap) 20 mg HS PO 08/29/17 21:00 09/28/17 20:59 08/31/17 20:50 20 MG Levalbuterol (Xopenex Hfa Inhaler) 2 puffs Q4H PRN INH 08/29/17 03:30 09/28/17 03:29 Metoclopramide HCl (Reglan Tab) 10 mg Q6H PRN PO 08/29/17 03:30 09/28/17 03:29 Montelukast Sodium (Singulair Tab) 10 mg DAILY PO 08/29/17 08:00 09/28/17 08:59 09/01/17 09:15 10 MG Pantoprazole Sodium (Protonix Tab) 40 mg BID PO 08/29/17 08:00 09/28/17 08:59 09/01/17 09:15 40 MG Phenazopyridine HCl (Pyridium Tab) 200 mg TID PRN PO 08/29/17 03:30 09/28/17 03:29 Valacyclovir HCl (Valtrex Tab) 500 mg DAILY PO 08/29/17 08:00 09/08/17 08:59 09/01/17 09:16 500 MG Acetaminophen 100 ml @ 400 mls/hr Q8H PRN IV 08/29/17 03:30 09/28/17 03:29 09/01/17 05:39 400 MLS/HR Miscellaneous (Iv Fluids Completed) 1 ea PRN PRN N/A 08/29/17 05:00 08/29/18 04:59 Al Hydroxide/Mg Hydroxide/ Diphenhydramine HCl/Lidocaine HCl/ Sucralfate/Barcode Q4H PRN PO 08/29/17 06:45 08/31/17 20:56 5 ML Sodium Chloride 1,000 ml @ 75 mls/hr [id number] IV 08/29/17 07:00 09/28/17 06:59 09/01/17 15:16 75 MLS/HR Fluoxetine HCl (Prozac Cap) 40 mg HS PO 08/29/17 21:00 09/28/17 20:59 08/31/17 20:51 40 MG Enteral Nutritional Formula (Boost Breeze Nutritional Drink) 1 box BIDM PO 08/29/17 17:00 09/28/17 16:59 09/01/17 09:14 1 BOX Alprazolam (Xanax Tab) 1 mg HS PRN PO 08/29/17 20:00 09/28/17 19:59 08/31/17 20:49 1 MG Alprazolam (Xanax Tab) 0.5 mg QAM PRN PO 08/29/17 20:00 09/28/17 19:59 08/30/17 16:58 0.5 MG Morphine Sulfate (MoRPHine SULFATE INJ) 2 mg Q8H PRN IV 08/31/17 18:00 09/13/17 09:44 09/01/17 10:19 2 MG Pentosan Polysulfate Sodium (Elmiron) 300 mg BID PO 08/31/17 20:00 09/30/17 19:59 09/01/17 09:15 300 MG Fluticasone Propionate (Flonase Nasal [place]) 2 sprays DAILY ROSARIO 09/01/17 08:00 10/01/17 07:59 09/01/17 09:14 2 SPRAYS Morphine Sulfate (MoRPHine SULFATE IR TAB) 30 mg Q8H PRN PO 08/31/17 18:00 09/14/17 17:59 09/01/17 14:47 30 MG
[2017-09-01] MEDS ORDERED: SIMETHICONE 80 MG CHEW PO PRN (17:30)
[2017-09-01] MEDS: DICYCLOMINE HCL 10 MG/ML 2 ML AMP IM PRN (19:27)
[2017-09-01] MEDS: FLUOXETINE HCL 20 MG CAP PO SCH ×2 (21:28)
[2017-09-01] MEDS: ALPRAZOLAM 0.5 MG TAB PO PRN (22:07)
[2017-09-02 04:08] VITALS: BP 112/76; PULSE 74; TEMP 37.1; O2SAT 96
[2017-09-02] MEDS: MoRPHine SULFATE 2 MG/ML CARP IV PRN ×2 (05:12→14:44)
[2017-09-02 06:27] LABS: HEMATOCRIT 29.9 % (37-47); HEMOGLOBIN 9.6 g/dL (12.0-16.0); MEAN CELL VOLUME 81.3 fL (80-100); MEAN CORPUSCULAR HEMOGLOBIN 26.1 pg (25-34); MEAN CORPUSCULAR HGB CONC 32.1 g/dl (32-36); RED CELL DISTRIBUTION WIDTH CV 14.7 % (11.5-14.5); RED CELL DISTRIBUTION WIDTH SD 43.4 fL (36.4-46.3)
[2017-09-02 06:40] LABS: MEAN PLATELET VOLUME 9.5 fL (7.4-10.4); PLATELET COUNT 71 K/uL (130-400)
[2017-09-02 06:54] LABS: BASO % 0.5 %; BASO ABS # 0.01 K/uL (0-0.2); EOS % 2.5 %; EOS ABS # 0.05 K/uL (0-0.5); IG# 0.01 K/uL (0.00-0.02); LYMPH % 38.5 %; LYMPH ABS # 0.77 K/uL (1.2-3.4); MONO ABS # 0.16 K/uL (0.11-0.59)
[2017-09-02 07:01] LABS: CALCIUM 8.1 mg/dl (8.5-10.1); CREATININE 0.9 mg/dl (0.60-1.20); POTASSIUM 3.8 mmol/L (3.5-5.1)
[2017-09-02 07:54] VITALS: BP 120/78; PULSE 71; TEMP 37.1; O2SAT 100
[2017-09-02] MEDS: FLUTICASONE PROPIONATE NA SPR 16 GM BTL NAE SCH (09:30)
[2017-09-02] MEDS: BOOST BREEZE NUTRITION DRINK 1 BOX PO SCH ×2 (09:30→16:22)
[2017-09-02] MEDS: MONTELUKAST SOD 10 MG TAB PO SCH (09:31)
[2017-09-02] MEDS: ALPRAZOLAM 0.5 MG TAB PO PRN ×2 (09:31→20:40)
[2017-09-02] MEDS: PENTOSAN POLYSULFATE SODIUM 100 MG CAP PO SCH ×2 (09:31→20:37)
[2017-09-02] MEDS: BUDESONIDE EC 3 MG CAP PO SCH (09:31)
[2017-09-02] MEDS: PANTOprazole SOD 40 MG TAB PO SCH ×2 (09:31→20:37)
[2017-09-02 11:02] VITALS: BP 95/61; PULSE 80; TEMP 37; O2SAT 97
[2017-09-02] MEDS: MoRPHine SULFATE IR 15 MG TAB (IMMEDIATE RELEASE) PO PRN ×2 (12:39→21:47)
--- NOTE | 2017-09-02 14:04 | Neurology Consultation ---
Neurology Consultation Date of Consultation: Sep 02, 2017. Attending Physician: Santino Mosley MD Primary Care Physician: Rock Cabrera D.O. Reason for Consultation: uncontrolled tremors History of Present Illness Source: patient, parent Nya who has a H uncontrolled tremor, Crohn, endometriosis, fibromyalgia Raynaud, AN who presented to the ED on 08/29/2017 after being seen in the ED for abdominal pain and vomiting on 08/26/2017. She was having increased stool out put from her colostomy with abdominal pain but the vomiting has stopped. She states she wanted to see Dr Morgan because she had seen him on a previous visit for tremor/headache. At that time 12/2016 she was admitted under similar circumstances and no medication were started accept riboflavin and Mg++ which she didn't start. The tremor has increased and Saturday night she uncontrollable shaking of her UE/LE which she states continued from evening until Saturday morning. she has AN which can cause RLS and may be contributing to the tremor. She does state she tosses and turns at night. She was scheduled to see Dr Morgan in the office for further evaluation but didn't keep the appointment. She was also seen in the past for migraine headaches which she has taken Topamax in the past but no longer takes. She does use Excedrin and Imitrex which she states she is using the Excedrin 2-3 x per day. denies CP, SOB, current abdominal pain, weakness, numbness tingling, N, V, vision changes. Past Medical/Surgical History Medical Problems: (1) Abdominal pain Status: Acute (2) Abdominal pain Status: Acute (3) Abdominal pain Status: Acute (4) Abdominal pain Status: Acute (5) Abnormal vaginal bleeding Status: Acute (6) Crohn's disease Status: Acute (7) Crohns disease Status: Acute (8) Dehydration Status: Acute (9) Dehydration Status: Acute (10) Dehydration Status: Acute (11) Diffuse abdominal pain Status: Acute (12) Headache Status: Acute (13) Hypotension Status: Acute (14) Intractable abdominal pain Status: Acute (15) Leukopenia Status: Acute (16) Lower abdominal pain Status: Acute (17) Paronychia of toe of left foot Status: Acute (18) Small bowel obstruction Status: Acute (19) Symptoms of urinary tract infection Status: Acute (20) Urinary tract infection Status: Acute (21) UTI (urinary tract infection) Status: Acute (22) UTI (urinary tract infection) Status: Acute (23) UTI (urinary tract infection) Status: Acute Social History Drug Use: none Marital Status: Housing Status: lives with significant other Occupation Status: disabled Allergies Coded Allergies: Clarithromycin (Verified Allergy, Severe, breathing problems, 08/26/17) Hydromorphone (Verified Allergy, Intermediate, RASH, 08/26/17) pt sasy she is allergic Ondansetron (Verified Allergy, Intermediate, itching, 08/26/17) Peanut (Verified Allergy, Intermediate, Rash and itchiness, 08/26/17) Hydroxyzine (Verified Allergy, Mild, itching, 08/26/17) Adhesives (Verified Allergy, Unknown, itching, swelling, 08/26/17) Albuterol (Verified Allergy, Unknown, rash, 08/26/17) BEE STING (Unverified Allergy, Unknown, anaphylaxis, 08/26/17) Ketorolac Tromethamine (Unverified Allergy, Unknown, unknown, 08/26/17) Latex (Verified Allergy, Unknown, itching, swelling, 08/26/17) Oxycodone (Verified Allergy, Unknown, itching, 08/26/17) Barium Sulfate (Verified Adverse Reaction, Unknown, diarrhea, 08/26/17) Lobster (Verified Adverse Reaction, Unknown, nausea, diarrhea, 08/26/17) Pregabalin (Verified Adverse Reaction, Unknown, delusions, 08/26/17) Uncoded Allergies: SPLENDA (Allergy, Unknown, Nausea/Vomiting, 09/26/16) Current Inpatient Medications Current Inpatient Medications Medications (Trade) Dose Ordered Sig/Tamar Route Start Time Stop Time Status Last Admin Dose Admin Baclofen (Lioresal Tab) 10 mg TID PRN PO 08/29/17 03:30 09/28/17 03:29 Budesonide (Entocort EC Cap) 9 mg DAILY PO 08/29/17 08:00 09/28/17 08:59 09/02/17 09:31 9 MG Fluoxetine HCl (Prozac Cap) 20 mg HS PO 08/29/17 21:00 09/28/17 20:59 09/01/17 21:28 20 MG Levalbuterol (Xopenex Hfa Inhaler) 2 puffs Q4H PRN INH 08/29/17 03:30 09/28/17 03:29 Metoclopramide HCl (Reglan Tab) 10 mg Q6H PRN PO 08/29/17 03:30 09/28/17 03:29 Montelukast Sodium (Singulair Tab) 10 mg DAILY PO 08/29/17 08:00 09/28/17 08:59 09/02/17 09:31 10 MG Pantoprazole Sodium (Protonix Tab) 40 mg BID PO 08/29/17 08:00 09/28/17 08:59 09/02/17 09:31 40 MG Phenazopyridine HCl (Pyridium Tab) 200 mg TID PRN PO 08/29/17 03:30 09/28/17 03:29 Valacyclovir HCl (Valtrex Tab) 500 mg DAILY PO 08/29/17 08:00 09/08/17 08:59 09/02/17 09:31 500 MG Acetaminophen 100 ml @ 400 mls/hr Q8H PRN IV 08/29/17 03:30 09/28/17 03:29 09/01/17 21:26 400 MLS/HR Miscellaneous (Iv Fluids Completed) 1 ea PRN PRN N/A 08/29/17 05:00 08/29/18 04:59 09/02/17 05:13 1 EA Al Hydroxide/Mg Hydroxide/ Diphenhydramine HCl/Lidocaine HCl/ Sucralfate/Barcode Q4H PRN PO 08/29/17 06:45 08/31/17 20:56 5 ML Fluoxetine HCl (Prozac Cap) 40 mg HS PO 08/29/17 21:00 09/28/17 20:59 09/01/17 21:28 40 MG Enteral Nutritional Formula (Boost Breeze Nutritional Drink) 1 box BIDM PO 08/29/17 17:00 09/28/17 16:59 09/02/17 09:30 1 BOX Alprazolam (Xanax Tab) 1 mg HS PRN PO 08/29/17 20:00 09/28/17 19:59 09/01/17 22:07 1 MG Alprazolam (Xanax Tab) 0.5 mg QAM PRN PO 08/29/17 20:00 09/28/17 19:59 09/02/17 09:31 0.5 MG Morphine Sulfate (MoRPHine SULFATE INJ) 2 mg Q8H PRN IV 08/31/17 18:00 09/13/17 09:44 09/02/17 05:12 2 MG Pentosan Polysulfate Sodium (Elmiron) 300 mg BID PO 08/31/17 20:00 09/30/17 19:59 09/02/17 09:31 300 MG Fluticasone Propionate (Flonase Nasal [place]) 2 sprays DAILY ROSARIO 09/01/17 08:00 10/01/17 07:59 09/02/17 09:30 2 SPRAYS Morphine Sulfate (MoRPHine SULFATE IR TAB) 30 mg Q8H PRN PO 08/31/17 18:00 09/14/17 17:59 09/02/17 12:39 30 MG Simethicone (Mylicon Chew Tab) 80 mg Q6H PRN PO 09/01/17 17:30 10/01/17 17:29 09/01/17 20:46 80 MG Dicyclomine HCl (Bentyl Inj) 20 mg ONE PRN IM 09/01/17 17:30 10/01/17 17:29 09/01/17 19:27 20 MG Physical Exam Vital Signs (Past 24 Hrs): Date Time Temp Pulse Resp B/P (MAP) Pulse Ox O2 Delivery O2 Flow Rate FiO2 09/02/17 11:02 37.0 80 15 95/61 (72) 97 09/02/17 10:30 Room Air 09/02/17 07:54 37.1 71 16 120/78 (92) 100 Room Air 09/02/17 04:08 37.1 74 18 112/76 (88) 96 Room Air 09/02/17 00:00 Room Air 09/01/17 23:59 37.1 76 18 105/72 (83) 97 Room Air 09/01/17 21:45 Room Air 09/01/17 18:57 37.1 89 16 113/77 (89) 98 09/01/17 14:50 37.1 91 16 110/74 (86) 97 Physical Exam: Constitutional: appearance nourished, healthy Ears, Nose, Mouth and Throat: mucous membranes moist, no injection and skin normal, eyes normal Cardiovascular: normal S-1 and S-2 and regular rate and rhythm Respiratory: clear to auscultation (CTA) and no rales, rhonchi or wheeze Musculoskeletal: no peripheral edema and good distal pulses Skin: no stigmata of neurocutaneous disease noted and normal and intact Eyes: extraocular muscles intact (EOMI) and pupils equal, round and reactive to light (PERRL) NEUROLOGIC EXAMINATION: Mental status: Alert and interactive Oriented to full date and location Oriented to person Speech fluent with no evidence of aphasia Cranial Nerves smile eye brow raise symmetric, tongue midline Reflexes: Deep tendon reflexes were symmetrical and graded 2/5. Plantar responses were flexor. Sensory: no deficit to cool or light touch Coordination: Romberg absent Gait/Stance: Posture normal. Gait normal: with steady with steps, base, turning, heel and toe walking (with some difficulty) and tandem gait. 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 bilaterally hip flex plantar flex ext 5/5 bilaterally Laboratory Results Past 24 Hours: 09/02/17 05:42 Red Blood Count 3.68, Mean Corpuscular Volume 81.3, Mean Corpuscular Hemoglobin 26.1, Mean Corpuscular Hemoglobin Concent 32.1, Mean Platelet Volume 9.5, Neutrophils (%) (Auto) 50.0, Lymphocytes (%) (Auto) 38.5, Monocytes (%) (Auto) 8.0, Eosinophils (%) (Auto) 2.5, Basophils (%) (Auto) 0.5, Neutrophils # (Auto) 1.00, Lymphocytes # (Auto) 0.77, Monocytes # (Auto) 0.16, Eosinophils # (Auto) 0.05, Basophils # (Auto) 0.01 09/02/17 05:42 Test 09/02/17 05:42 White Blood Count 2.00 K/uL (4.8-10.8) Red Blood Count 3.68 M/uL (4.2-5.4) Hemoglobin 9.6 g/dL (12.0-16.0) Hematocrit 29.9 % (37-47) Mean Corpuscular Volume 81.3 fL (80-100) Mean Corpuscular Hemoglobin 26.1 pg (25-34) Mean Corpuscular Hemoglobin Concent 32.1 g/dl (32-36) Platelet Count 71 K/uL (130-400) Mean Platelet Volume 9.5 fL (7.4-10.4) Neutrophils (%) (Auto) 50.0 % Lymphocytes (%) (Auto) 38.5 % Monocytes (%) (Auto) 8.0 % Eosinophils (%) (Auto) 2.5 % Basophils (%) (Auto) 0.5 % Neutrophils # (Auto) 1.00 K/uL (1.4-6.5) Lymphocytes # (Auto) 0.77 K/uL (1.2-3.4) Monocytes # (Auto) 0.16 K/uL (0.11-0.59) Eosinophils # (Auto) 0.05 K/uL (0-0.5) Basophils # (Auto) 0.01 K/uL (0-0.2) RDW Standard Deviation 43.4 fL (36.4-46.3) RDW Coefficient of Variation 14.7 % (11.5-14.5) Immature Granulocyte % (Auto) 0.5 % Immature Granulocyte # (Auto) 0.01 K/uL (0.00-0.02) Ovalocytes 1+ Anion Gap 6.0 mmol/L (3-11) Est Creatinine Clear Calc Drug Dose 80.7 ml/min Estimated GFR () 94.0 Estimated GFR (Non- 81.1 BUN/Creatinine Ratio 16.8 (10-20) Calcium Level 8.1 mg/dl (8.5-10.1) Imaging no new images Impression 37 year old female with Crohn disease and tremor/migraines Plan 1. migraine management recommend starting riboflavin 400 mg daily and Mg++ 400 mg once she is back to baseline- would use caution with Mg+ due to diarrhea potential 2. avoid over use of PRN medication, if using imitrex no more than 2-3 x per month, stop taking Excedrin to avoid rebound headaches 3. tremor should be evaluated as out patient once medical issues are resolved 4. iron levels likely play a part in the restless legs at night 5. possible sleep study as out patient 6. further recommendations to follow I have seen and discussed above patient with Dr Santiago Morgan, neurology Patient known to me from a prior admission with similar circumstances ie sbo and incresed tremor and migraine with acute flares of her inflammatory bowel disease NO there is question of an obstruction and potential need to have her stoma redone at [facility] She apparently has low grade sasthma which takes inderal off the table for her headaches and tremor and topamax is no longer effective and in the past neurontin was not effective Now treimor is mild and headaches are stable so there is really no pressure to start another rx and really in setting of potential surgery the only meds I would consider would be mag oxide and riboflavin and the former may increase gi motility I will check back tomorrow but for now the rx of her migraines and tremor remain an outpatient management issue Santiago Morgan MD
[2017-09-02 15:00] VITALS: BP 107/72; PULSE 89; TEMP 37.2; O2SAT 98
[2017-09-02 19:48] VITALS: BP 103/64; PULSE 91; TEMP 37.1; O2SAT 97
--- NOTE | 2017-09-02 20:07 | Progress Note ---
Medicine Progress Note Date & Time of Visit: Sep 02, 2017 at 20:02. Subjective seen resting in bed, comfortable reports pain around the stoma is about the same, slightly worse able to tolerate diet well, ileostomy output ok tremors improving denies bleeding, chest pain, dyspnea no other symptoms Objective Last 8 Hrs Date Time Temp Pulse Resp B/P (MAP) Pulse Ox O2 Delivery O2 Flow Rate FiO2 09/02/17 19:48 37.1 91 16 103/64 (77) 97 Room Air 09/02/17 16:00 Room Air 09/02/17 15:00 37.2 89 16 107/72 (84) 98 Physical Exam: General- oriented x 3, not in distress, speaks in sentences with no effort Eyes- anicteric Neck- no JVD Lungs- clear breath sounds bilaterally, no wheezes, no rales Heart- regular rhythm; no murmur, normal rate Abdomen- normal bowel sounds, soft, non distended; ileostomy site benign, mildly tender Extremities- no pretibial edema, no calf tenderness Neuro- alert, oriented x 3;no gross focal deficits Skin- warm & dry Laboratory Results: Last 24 Hours Test 09/02/17 05:42 White Blood Count 2.00 K/uL Red Blood Count 3.68 M/uL Hemoglobin 9.6 g/dL Hematocrit 29.9 % Mean Corpuscular Volume 81.3 fL Mean Corpuscular Hemoglobin 26.1 pg Mean Corpuscular Hemoglobin Concent 32.1 g/dl Platelet Count 71 K/uL Mean Platelet Volume 9.5 fL Neutrophils (%) (Auto) 50.0 % Lymphocytes (%) (Auto) 38.5 % Monocytes (%) (Auto) 8.0 % Eosinophils (%) (Auto) 2.5 % Basophils (%) (Auto) 0.5 % Neutrophils # (Auto) 1.00 K/uL Lymphocytes # (Auto) 0.77 K/uL Monocytes # (Auto) 0.16 K/uL Eosinophils # (Auto) 0.05 K/uL Basophils # (Auto) 0.01 K/uL RDW Standard Deviation 43.4 fL RDW Coefficient of Variation 14.7 % Immature Granulocyte % (Auto) 0.5 % Immature Granulocyte # (Auto) 0.01 K/uL Ovalocytes 1+ Sodium Level 138 mmol/L Potassium Level 3.8 mmol/L Chloride Level 105 mmol/L Carbon Dioxide Level 27 mmol/L Anion Gap 6.0 mmol/L Blood Urea Nitrogen 15 mg/dl Creatinine 0.90 mg/dl Est Creatinine Clear Calc Drug Dose 80.7 ml/min Estimated GFR () 94.0 Estimated GFR (Non- 81.1 BUN/Creatinine Ratio 16.8 Random Glucose 87 mg/dl Calcium Level 8.1 mg/dl Assessment & Plan 37 year old female with history of Crohn's Disease s/p Ileostomy, Depression, Thrombocytopenia presenting with abdominal pain. PAIN OVER ILEOSTOMY STOMA - GI consulted has history of adhesions on the ileostomy site consulted Ostomy nurse for further recommendations- Ostomy ring changed - GI concerned re: chronic Morphine use in the setting of Crohn's disease consulted Pain Management, patient agreeable Dr. Sy recommends continue usual PO Morphine and add PRN Morphine IV for breakthrough - repeat abd xray: no obstruction will increase Morphine IV to q6h from q8h as patient continues to report pain will need to re-consult pain management and GI for re-evaluation PANCYTOPENIA, SPLENOMEGALY -- history of chronic thrombocytopenia - noted to have decreasing levels of CBC while admitted - no signs of active infection - no signs of active bleeding -- discussed with Dr. Arredondo Peripheral smear, anemia panel, etc. ordered--> pancytopenia likely from ongoing illness CT abdomen ordered: stable splenomegaly -- WBC and Plt slightly improved, Hg about the same no fever, no bleeding will continue to monitor Dr. Arredondo on board TREMORS - Neuro consulted - recommend Mg and Riboflavin DEPRESSION - continue usual medications DVT prophylaxis - SCDs for now due to low Plt encouraged to ambulate Disposition pending anticipate d/c home when medically stable Current Inpatient Medications: Current Inpatient Medications Medications (Trade) Dose Ordered Sig/Tamar Route Start Time Stop Time Status Last Admin Dose Admin Baclofen (Lioresal Tab) 10 mg TID PRN PO 08/29/17 03:30 09/28/17 03:29 Budesonide (Entocort EC Cap) 9 mg DAILY PO 08/29/17 08:00 09/28/17 08:59 09/02/17 09:31 9 MG Fluoxetine HCl (Prozac Cap) 20 mg HS PO 08/29/17 21:00 09/28/17 20:59 09/01/17 21:28 20 MG Levalbuterol (Xopenex Hfa Inhaler) 2 puffs Q4H PRN INH 08/29/17 03:30 09/28/17 03:29 Metoclopramide HCl (Reglan Tab) 10 mg Q6H PRN PO 08/29/17 03:30 09/28/17 03:29 Montelukast Sodium (Singulair Tab) 10 mg DAILY PO 08/29/17 08:00 09/28/17 08:59 09/02/17 09:31 10 MG Pantoprazole Sodium (Protonix Tab) 40 mg BID PO 08/29/17 08:00 09/28/17 08:59 09/02/17 09:31 40 MG Phenazopyridine HCl (Pyridium Tab) 200 mg TID PRN PO 08/29/17 03:30 09/28/17 03:29 Valacyclovir HCl (Valtrex Tab) 500 mg DAILY PO 08/29/17 08:00 09/08/17 08:59 09/02/17 09:31 500 MG Acetaminophen 100 ml @ 400 mls/hr Q8H PRN IV 08/29/17 03:30 09/28/17 03:29 09/01/17 21:26 400 MLS/HR Miscellaneous (Iv Fluids Completed) 1 ea PRN PRN N/A 08/29/17 05:00 08/29/18 04:59 09/02/17 05:13 1 EA Al Hydroxide/Mg Hydroxide/ Diphenhydramine HCl/Lidocaine HCl/ Sucralfate/Barcode Q4H PRN PO 08/29/17 06:45 08/31/17 20:56 5 ML Fluoxetine HCl (Prozac Cap) 40 mg HS PO 08/29/17 21:00 09/28/17 20:59 09/01/17 21:28 40 MG Enteral Nutritional Formula (Boost Breeze Nutritional Drink) 1 box BIDM PO 08/29/17 17:00 09/28/17 16:59 09/02/17 16:22 1 BOX Alprazolam (Xanax Tab) 1 mg HS PRN PO 08/29/17 20:00 09/28/17 19:59 09/01/17 22:07 1 MG Alprazolam (Xanax Tab) 0.5 mg QAM PRN PO 08/29/17 20:00 09/28/17 19:59 09/02/17 09:31 0.5 MG Pentosan Polysulfate Sodium (Elmiron) 300 mg BID PO 08/31/17 20:00 09/30/17 19:59 09/02/17 09:31 300 MG Fluticasone Propionate (Flonase Nasal [place]) 2 sprays DAILY ROSARIO 09/01/17 08:00 10/01/17 07:59 09/02/17 09:30 2 SPRAYS Simethicone (Mylicon Chew Tab) 80 mg Q6H PRN PO 09/01/17 17:30 10/01/17 17:29 09/01/17 20:46 80 MG Dicyclomine HCl (Bentyl Inj) 20 mg ONE PRN IM 09/01/17 17:30 10/01/17 17:29 09/01/17 19:27 20 MG Morphine Sulfate (MoRPHine SULFATE INJ) 2 mg Q6H PRN IV 09/02/17 21:00 09/13/17 20:59 Morphine Sulfate (MoRPHine SULFATE IR TAB) 30 mg TID PRN PO 09/02/17 18:00 09/14/17 17:59 Benzocaine (Orajel 20% Oral Gel) 1 appln Q6H PRN MT 09/02/17 18:00 10/02/17 17:59
[2017-09-02] MEDS: FLUOXETINE HCL 20 MG CAP PO SCH ×2 (20:36→20:37)
[2017-09-02] MEDS: ALUMINUM/MAGNESIUM SUSP 50 ML, DiphenhydrAMINE HCL SYRUP 125 MG, LIDOCAINE HCL 2% VISCO... PO PRN ×4 (21:47)
[2017-09-03 00:03] VITALS: BP 99/67; PULSE 82; TEMP 36.9; O2SAT 97
[2017-09-03 04:03] VITALS: BP 94/60; PULSE 73; TEMP 36.5; O2SAT 98
[2017-09-03 07:03] LABS: HEMATOCRIT 28.6 % (37-47); HEMOGLOBIN 9.4 g/dL (12.0-16.0); MEAN CELL VOLUME 81.7 fL (80-100); MEAN CORPUSCULAR HEMOGLOBIN 26.9 pg (25-34); MEAN CORPUSCULAR HGB CONC 32.9 g/dl (32-36); RED CELL DISTRIBUTION WIDTH CV 14.9 % (11.5-14.5); WHITE BLOOD COUNT 2.07 K/uL (4.8-10.8)
[2017-09-03 07:29] LABS: METHYLMALONIC ACID 144 NMOL/L (87-318)
[2017-09-03] MEDS: PANTOprazole SOD 40 MG TAB PO SCH ×2 (07:31→19:58)
[2017-09-03] MEDS: BUDESONIDE EC 3 MG CAP PO SCH (07:31)
[2017-09-03] MEDS: FLUTICASONE PROPIONATE NA SPR 16 GM BTL NAE SCH (07:31)
[2017-09-03] MEDS: MAGNESIUM OXIDE 400 MG TAB PO SCH ×2 (07:31→19:58)
[2017-09-03] MEDS: PENTOSAN POLYSULFATE SODIUM 100 MG CAP PO SCH ×2 (07:31→20:01)
[2017-09-03] MEDS: MoRPHine SULFATE 2 MG/ML CARP IV PRN (07:32)
[2017-09-03] MEDS: MONTELUKAST SOD 10 MG TAB PO SCH (07:32)
[2017-09-03] MEDS: DICYCLOMINE HCL 10 MG/ML 2 ML AMP IM PRN (07:33)
[2017-09-03] MEDS: ALPRAZOLAM 0.5 MG TAB PO PRN ×2 (07:39→20:05)
[2017-09-03] MEDS: BENZOCAINE 20% (ORAJEL) 11.9 GM TUBE MT PRN (07:40)
[2017-09-03 07:41] LABS: CALCIUM 8.3 mg/dl (8.5-10.1); CREATININE 0.79 mg/dl (0.60-1.20); POTASSIUM 3.9 mmol/L (3.5-5.1)
[2017-09-03 07:55] LABS: MEAN PLATELET VOLUME 9.2 fL (7.4-10.4); PLATELET COUNT 67 K/uL (130-400)
[2017-09-03 07:56] LABS: EOS % 2.4 %; EOS ABS # 0.05 K/uL (0-0.5); LYMPH % 31.4 %; LYMPH ABS # 0.65 K/uL (1.2-3.4); MONO % 8.7 %; MONO ABS # 0.18 K/uL (0.11-0.59); NEUT % 57.5 %; NEUT ABS # 1.19 K/uL (1.4-6.5)
[2017-09-03 08:03] VITALS: BP 93/63; PULSE 63; TEMP 36.7; O2SAT 98
--- NOTE | 2017-09-03 10:31 | PROGRESS NOTE ---
DATE: 09/03/2017 DATE: 09/03/2017 Nya looks a little better today. The tremor is minor, involves the outstretched hands. It is interfering with her function and is much improved from what she describes that occurred on Saturday night when she had general whole body tremors, but this was in the setting of acute illness or at least worsening of her abdominal symptoms and is probably driven by her pain. The headaches are about the same as she generally takes Excedrin Migraine for them. She does report an aura with them so triptans probably should not be used in this setting and she should rely on what seems to work best i.e., Excedrin Migraine. We are going to start her out or going to suggest she be started on some magnesium oxide 400 mg, riboflavin 400 mg but I will let this decision up to her attending physician team and the GI service as magnesium can increase GI motility and cause more diarrhea in a woman who already has issues with that due to her inflammatory bowel disease. In terms of tremor control, many drugs or off the table. Topamax really never did much for the tremor and stopped working for the migraines. Gabapentin in the past was ineffective. She does have asthma and Inderal is not likely to be well tolerated drug, although might be a good drug to help migraine and tremor. 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 In terms of long-term headache management if the magnesium oxide and riboflavin do not work she might conceivably be a candidate for Botox. Again, all these decisions are on an outpatient basis and after discharge she should make an appointment to see myself or Shayna Martin and follow up in our office in about 3-4 weeks. Right now there are a number of issues regarding her stoma and her Crohn's disease that take precedence and I do want to start any medications that may alter her GI motility excessively or produce other side effects that might be misleading. I am going to sign off the case at this point.
[2017-09-03 11:31] VITALS: BP 107/73; PULSE 73; TEMP 36.8; O2SAT 97
[2017-09-03] MEDS: BOOST BREEZE NUTRITION DRINK 1 BOX PO SCH ×2 (13:15→15:23)
[2017-09-03] MEDS: MoRPHine SULFATE IR 15 MG TAB (IMMEDIATE RELEASE) PO PRN ×2 (13:16→20:05)
[2017-09-03] MEDS: ACETAMINOPHEN IV 100 ML IV PRN (15:20)
[2017-09-03 16:27] VITALS: BP 107/72; PULSE 85; TEMP 36.8; O2SAT 96
--- NOTE | 2017-09-03 18:41 | Progress Note ---
Medicine Progress Note Date & Time of Visit: Sep 03, 2017 at 18:17. Subjective Pt was seen and examined Lying in bed with no acute distress with at bedside Pt said that she continue to have abdominal pain She said that pain only improves with the IV morphine Pt seems very comfortable in bed Tolerated diet well denies any chest pain, palpitation, dizziness and SOB Objective Last 8 Hrs Date Time Temp Pulse Resp B/P (MAP) Pulse Ox O2 Delivery O2 Flow Rate FiO2 09/03/17 16:27 36.8 85 16 107/72 (84) 96 Room Air 09/03/17 16:00 Room Air 09/03/17 11:31 36.8 73 16 107/73 (84) 97 Room Air 09/03/17 10:25 Room Air Physical Exam: General- No acute distress Head- atraumatic Eyes- PERRL, EOMI ENT- oropharynx clear Neck- supple, no JVD Lungs- clear to auscultation Heart- regular rhythm Abdomen- normal bowel sounds, +tenderness, no leakage around ostomy area and no redness Extremities- no calf tenderness Neuro- alert, oriented x 3; PERRL, EOMI Skin- warm & dry Laboratory Results: Last 24 Hours Test 09/03/17 06:52 White Blood Count 2.07 K/uL Red Blood Count 3.50 M/uL Hemoglobin 9.4 g/dL Hematocrit 28.6 % Mean Corpuscular Volume 81.7 fL Mean Corpuscular Hemoglobin 26.9 pg Mean Corpuscular Hemoglobin Concent 32.9 g/dl Platelet Count 67 K/uL Mean Platelet Volume 9.2 fL Neutrophils (%) (Auto) 57.5 % Lymphocytes (%) (Auto) 31.4 % Monocytes (%) (Auto) 8.7 % Eosinophils (%) (Auto) 2.4 % Basophils (%) (Auto) 0.0 % Neutrophils # (Auto) 1.19 K/uL Lymphocytes # (Auto) 0.65 K/uL Monocytes # (Auto) 0.18 K/uL Eosinophils # (Auto) 0.05 K/uL Basophils # (Auto) 0.00 K/uL RDW Standard Deviation 44.0 fL RDW Coefficient of Variation 14.9 % Immature Granulocyte % (Auto) 0.0 % Immature Granulocyte # (Auto) 0.00 K/uL Platelet Estimate DECREASED Hypochromasia PRESENT Sodium Level 139 mmol/L Potassium Level 3.9 mmol/L Chloride Level 103 mmol/L Carbon Dioxide Level 32 mmol/L Anion Gap 4.0 mmol/L Blood Urea Nitrogen 19 mg/dl Creatinine 0.79 mg/dl Est Creatinine Clear Calc Drug Dose 91.0 ml/min Estimated GFR () 110.1 Estimated GFR (Non- 95.0 BUN/Creatinine Ratio 24.4 Random Glucose 81 mg/dl Calcium Level 8.3 mg/dl Assessment & Plan Abdominal pain CT abd showed No acute process within the chest. No dilated loops of bowel to suggest an obstruction. Repeat abdominal xray showed no obstruction Has history of adhesions on the ileostomy site Ostomy nurse changed Ostomy ring Pt has been getting morphine around the clock GI concerned re: chronic Morphine use in the setting of Crohn's disease official Pain Management consult cancelled Dr. Sy recommends continue usual PO Morphine and add PRN Morphine IV for breakthrough PANCYTOPENIA THROMBOCYTOPENIA SPLENOMEGALY history of chronic thrombocytopenia pancytopenia likely from ongoing illness Hematology on board Will monitor for sign of bleeding If wbc worsening, consider bone marrow aspiration by hematology plt 67 and wbc 2.07 today Continue monitor CBC HEADACHE Neuro consulted Recommend Mg and Riboflavin Due to increase output on ostomy, will hold on Mg for now riboflavin can be starting outpatient TREMOR neuro on board Plan to start on med as an outpatient Follow up with neuro in 3-4 weeks EPISTAXIS Mostly due to Low platelet Advised pt to avoid blowing her nose starting on nasal saline prn DEPRESSION continue usual medications stable DVT prophylaxis SCDs due to thrombocytopenia CODE STATUS FULL CODE Current Inpatient Medications: Current Inpatient Medications Medications (Trade) Dose Ordered Sig/Tamar Route Start Time Stop Time Status Last Admin Dose Admin Baclofen (Lioresal Tab) 10 mg TID PRN PO 08/29/17 03:30 09/28/17 03:29 Budesonide (Entocort EC Cap) 9 mg DAILY PO 08/29/17 08:00 09/28/17 08:59 09/03/17 07:31 9 MG Fluoxetine HCl (Prozac Cap) 20 mg HS PO 08/29/17 21:00 09/28/17 20:59 09/02/17 20:37 20 MG Levalbuterol (Xopenex Hfa Inhaler) 2 puffs Q4H PRN INH 08/29/17 03:30 09/28/17 03:29 Metoclopramide HCl (Reglan Tab) 10 mg Q6H PRN PO 08/29/17 03:30 09/28/17 03:29 Montelukast Sodium (Singulair Tab) 10 mg DAILY PO 08/29/17 08:00 09/28/17 08:59 09/03/17 07:32 10 MG Pantoprazole Sodium (Protonix Tab) 40 mg BID PO 08/29/17 08:00 09/28/17 08:59 09/03/17 07:31 40 MG Phenazopyridine HCl (Pyridium Tab) 200 mg TID PRN PO 08/29/17 03:30 09/28/17 03:29 Valacyclovir HCl (Valtrex Tab) 500 mg DAILY PO 08/29/17 08:00 09/08/17 08:59 09/03/17 07:32 500 MG Acetaminophen 100 ml @ 400 mls/hr Q8H PRN IV 08/29/17 03:30 09/28/17 03:29 09/03/17 15:20 400 MLS/HR Miscellaneous (Iv Fluids Completed) 1 ea PRN PRN N/A 08/29/17 05:00 08/29/18 04:59 09/02/17 05:13 1 EA Al Hydroxide/Mg Hydroxide/ Diphenhydramine HCl/Lidocaine HCl/ Sucralfate/Barcode Q4H PRN PO 08/29/17 06:45 09/02/17 21:47 5 ML Fluoxetine HCl (Prozac Cap) 40 mg HS PO 08/29/17 21:00 09/28/17 20:59 09/02/17 20:36 40 MG Enteral Nutritional Formula (Boost Breeze Nutritional Drink) 1 box BIDM PO 08/29/17 17:00 09/28/17 16:59 09/03/17 15:23 1 BOX Alprazolam (Xanax Tab) 1 mg HS PRN PO 08/29/17 20:00 09/28/17 19:59 09/02/17 20:40 1 MG Alprazolam (Xanax Tab) 0.5 mg QAM PRN PO 08/29/17 20:00 09/28/17 19:59 09/03/17 07:39 0.5 MG Pentosan Polysulfate Sodium (Elmiron) 300 mg BID PO 08/31/17 20:00 09/30/17 19:59 09/03/17 07:31 300 MG Fluticasone Propionate (Flonase Nasal [place]) 2 sprays DAILY ROSARIO 09/01/17 08:00 10/01/17 07:59 09/03/17 07:31 2 SPRAYS Simethicone (Mylicon Chew Tab) 80 mg Q6H PRN PO 09/01/17 17:30 10/01/17 17:29 09/01/17 20:46 80 MG Morphine Sulfate (MoRPHine SULFATE INJ) 2 mg Q6H PRN IV 09/02/17 21:00 09/13/17 20:59 09/03/17 07:32 2 MG Morphine Sulfate (MoRPHine SULFATE IR TAB) 30 mg TID PRN PO 09/02/17 18:00 09/14/17 17:59 09/03/17 13:16 30 MG Benzocaine (Orajel 20% Oral Gel) 1 appln Q6H PRN MT 09/02/17 18:00 10/02/17 17:59 09/03/17 07:40 1 APPLN Magnesium Oxide (Mag-Ox Tab) 400 mg BID PO 09/03/17 08:00 10/03/17 07:59 09/03/17 07:31 400 MG
[2017-09-03] MEDS ORDERED: SODIUM CHLORIDE 0.65% NA SOLN 45 ML (OCEAN) PRN (18:45)
[2017-09-03 19:34] VITALS: BP 123/72; PULSE 89; TEMP 37.1; O2SAT 97
[2017-09-03] MEDS: FLUOXETINE HCL 20 MG CAP PO SCH ×2 (19:59→20:00)
[2017-09-03] MEDS: ALUMINUM/MAGNESIUM SUSP 50 ML, DiphenhydrAMINE HCL SYRUP 125 MG, LIDOCAINE HCL 2% VISCO... PO PRN ×4 (20:57)
[2017-09-04] VITALS (8 sets, daily range): BP systolic 97–116; BP diastolic 65–78; PULSE 64–88; TEMP 36.4–37.4; O2SAT 97–100
[2017-09-04] MEDS: MoRPHine SULFATE 2 MG/ML CARP IV PRN ×3 (02:49→21:08)
[2017-09-04 07:17] LABS: HEMOGLOBIN 9.7 g/dL (12.0-16.0); MEAN CORPUSCULAR HEMOGLOBIN 27.2 pg (25-34); MEAN CORPUSCULAR HGB CONC 32.3 g/dl (32-36); RED CELL DISTRIBUTION WIDTH CV 15.3 % (11.5-14.5); WHITE BLOOD COUNT 2.78 K/uL (4.8-10.8)
[2017-09-04 07:35] LABS: MEAN PLATELET VOLUME 9.3 fL (7.4-10.4); PLATELET COUNT 67 K/uL (130-400)
[2017-09-04 07:47] LABS: CALCIUM 8.7 mg/dl (8.5-10.1); CREATININE 0.9 mg/dl (0.60-1.20); POTASSIUM 3.9 mmol/L (3.5-5.1)
[2017-09-04] MEDS: PANTOprazole SOD 40 MG TAB PO SCH ×2 (08:41→20:57)
[2017-09-04] MEDS: FLUTICASONE PROPIONATE NA SPR 16 GM BTL NAE SCH (08:41)
[2017-09-04] MEDS: PENTOSAN POLYSULFATE SODIUM 100 MG CAP PO SCH ×2 (08:41→20:59)
[2017-09-04] MEDS: BOOST BREEZE NUTRITION DRINK 1 BOX PO SCH ×2 (08:41→15:40)
[2017-09-04] MEDS: MAGNESIUM OXIDE 400 MG TAB PO SCH ×2 (08:41→20:57)
[2017-09-04] MEDS: BUDESONIDE EC 3 MG CAP PO SCH (08:41)
[2017-09-04] MEDS: ALPRAZOLAM 0.5 MG TAB PO PRN ×2 (08:42→21:08)
[2017-09-04] MEDS: MONTELUKAST SOD 10 MG TAB PO SCH (08:42)
[2017-09-04] MEDS: ALUMINUM/MAGNESIUM SUSP 50 ML, DiphenhydrAMINE HCL SYRUP 125 MG, LIDOCAINE HCL 2% VISCO... PO PRN ×4 (08:43)
[2017-09-04] MEDS: BENZOCAINE 20% (ORAJEL) 11.9 GM TUBE MT PRN (08:43)
[2017-09-04] MEDS: MoRPHine SULFATE IR 15 MG TAB (IMMEDIATE RELEASE) PO PRN (15:39)
--- NOTE | 2017-09-04 17:46 | Progress Note ---
Medicine Progress Note Date & Time of Visit: Sep 04, 2017 at 17:28. Subjective Pt was seen and examined Lying in bed with no distress Pt seems comfortable she was sleeping comfortable upon entering Pt said that she continue to have pain in her abdomen She said that her pain is the same Denies any dizziness, SOB and fever Objective Last 8 Hrs Date Time Temp Pulse Resp B/P (MAP) Pulse Ox O2 Delivery O2 Flow Rate FiO2 09/04/17 16:11 37.1 75 20 110/75 (87) 98 09/04/17 16:00 99 09/04/17 13:51 Room Air 09/04/17 11:52 37.0 64 16 100/69 (79) 99 Room Air Physical Exam: General- No acute distress Head- atraumatic Eyes- PERRL, EOMI ENT- oropharynx clear Neck- supple, no JVD Lungs- clear to auscultation Heart- regular rhythm Abdomen- normal bowel sounds, +tenderness, no leakage around ostomy area and no redness Extremities- no calf tenderness Neuro- alert, oriented x 3; PERRL, EOMI Skin- warm & dry Laboratory Results: Last 24 Hours Test 09/04/17 06:51 White Blood Count 2.78 K/uL Red Blood Count 3.57 M/uL Hemoglobin 9.7 g/dL Hematocrit 30.0 % Mean Corpuscular Volume 84.0 fL Mean Corpuscular Hemoglobin 27.2 pg Mean Corpuscular Hemoglobin Concent 32.3 g/dl RDW Standard Deviation 46.0 fL RDW Coefficient of Variation 15.3 % Platelet Count 67 K/uL Mean Platelet Volume 9.3 fL Sodium Level 140 mmol/L Potassium Level 3.9 mmol/L Chloride Level 102 mmol/L Carbon Dioxide Level 32 mmol/L Anion Gap 7.0 mmol/L Blood Urea Nitrogen 26 mg/dl Creatinine 0.90 mg/dl Est Creatinine Clear Calc Drug Dose 80.5 ml/min Estimated GFR () 94.0 Estimated GFR (Non- 81.1 BUN/Creatinine Ratio 28.8 Random Glucose 100 mg/dl Calcium Level 8.7 mg/dl Assessment & Plan Abdominal pain CT abd showed No acute process within the chest. No dilated loops of bowel to suggest an obstruction. Repeat abdominal xray showed no obstruction Has history of adhesions on the ileostomy site Ostomy nurse changed Ostomy ring Pt has been getting morphine around the clock GI concerned re: chronic Morphine use in the setting of Crohn's disease Official Pain Management consult cancelled Dr. Sy recommends continue usual PO Morphine and add PRN Morphine IV for breakthrough Will plan to decrease IV morphine PANCYTOPENIA THROMBOCYTOPENIA SPLENOMEGALY history of chronic thrombocytopenia pancytopenia likely from ongoing illness Hematology on board Will monitor for sign of bleeding If wbc worsening, consider bone marrow aspiration by hematology plt 67 and wbc 2.7 today Continue monitor CBC HEADACHE Neuro consulted Recommend Mg and Riboflavin Due to increase output on ostomy, will hold on Mg for now riboflavin can be starting outpatient TREMOR neuro on board Plan to start on med as an outpatient Follow up with neuro in 3-4 weeks EPISTAXIS Mostly due to Low platelet Advised pt to avoid blowing her nose starting on nasal saline prn DEPRESSION continue usual medications stable DVT prophylaxis SCDs due to thrombocytopenia CODE STATUS FULL CODE Current Inpatient Medications: Current Inpatient Medications Medications (Trade) Dose Ordered Sig/Tamar Route Start Time Stop Time Status Last Admin Dose Admin Baclofen (Lioresal Tab) 10 mg TID PRN PO 08/29/17 03:30 09/28/17 03:29 Budesonide (Entocort EC Cap) 9 mg DAILY PO 08/29/17 08:00 09/28/17 08:59 09/04/17 08:41 9 MG Fluoxetine HCl (Prozac Cap) 20 mg HS PO 08/29/17 21:00 09/28/17 20:59 09/03/17 19:59 20 MG Levalbuterol (Xopenex Hfa Inhaler) 2 puffs Q4H PRN INH 08/29/17 03:30 09/28/17 03:29 Metoclopramide HCl (Reglan Tab) 10 mg Q6H PRN PO 08/29/17 03:30 09/28/17 03:29 Montelukast Sodium (Singulair Tab) 10 mg DAILY PO 08/29/17 08:00 09/28/17 08:59 09/04/17 08:42 10 MG Pantoprazole Sodium (Protonix Tab) 40 mg BID PO 08/29/17 08:00 09/28/17 08:59 09/04/17 08:41 40 MG Phenazopyridine HCl (Pyridium Tab) 200 mg TID PRN PO 08/29/17 03:30 09/28/17 03:29 Valacyclovir HCl (Valtrex Tab) 500 mg DAILY PO 08/29/17 08:00 09/08/17 08:59 09/04/17 08:42 500 MG Acetaminophen 100 ml @ 400 mls/hr Q8H PRN IV 08/29/17 03:30 09/28/17 03:29 09/03/17 15:20 400 MLS/HR Miscellaneous (Iv Fluids Completed) 1 ea PRN PRN N/A 08/29/17 05:00 08/29/18 04:59 09/02/17 05:13 1 EA Al Hydroxide/Mg Hydroxide/ Diphenhydramine HCl/Lidocaine HCl/ Sucralfate/Barcode Q4H PRN PO 08/29/17 06:45 09/04/17 08:43 5 ML Fluoxetine HCl (Prozac Cap) 40 mg HS PO 08/29/17 21:00 09/28/17 20:59 09/03/17 20:00 40 MG Enteral Nutritional Formula (Boost Breeze Nutritional Drink) 1 box BIDM PO 08/29/17 17:00 09/28/17 16:59 09/04/17 15:40 1 BOX Alprazolam (Xanax Tab) 1 mg HS PRN PO 08/29/17 20:00 09/28/17 19:59 09/03/17 20:05 1 MG Alprazolam (Xanax Tab) 0.5 mg QAM PRN PO 08/29/17 20:00 09/28/17 19:59 09/04/17 08:42 0.5 MG Pentosan Polysulfate Sodium (Elmiron) 300 mg BID PO 08/31/17 20:00 09/30/17 19:59 09/04/17 08:41 300 MG Fluticasone Propionate (Flonase Nasal [place]) 2 sprays DAILY ROSARIO 09/01/17 08:00 10/01/17 07:59 09/04/17 08:41 2 SPRAYS Simethicone (Mylicon Chew Tab) 80 mg Q6H PRN PO 09/01/17 17:30 10/01/17 17:29 09/01/17 20:46 80 MG Morphine Sulfate (MoRPHine SULFATE INJ) 2 mg Q6H PRN IV 09/02/17 21:00 1/26/18 20:59 09/04/17 14:01 2 MG Morphine Sulfate (MoRPHine SULFATE IR TAB) 30 mg TID PRN PO 09/02/17 18:00 09/14/17 17:59 09/04/17 15:39 30 MG Benzocaine (Orajel 20% Oral Gel) 1 appln Q6H PRN MT 09/02/17 18:00 10/02/17 17:59 09/04/17 08:43 1 APPLN Magnesium Oxide (Mag-Ox Tab) 400 mg BID PO 09/03/17 08:00 10/03/17 07:59 09/04/17 08:41 400 MG Sodium Chloride ([place] Nasal [place]) 1 sprays Q4H PRN NA 09/03/17 18:45 10/03/17 18:44 09/03/17 19:00 1 SPRAYS
[2017-09-04] MEDS: FLUOXETINE HCL 20 MG CAP PO SCH ×2 (20:56→21:00)
[2017-09-05] VITALS (7 sets, daily range): BP systolic 101–110; BP diastolic 67–74; PULSE 63–95; TEMP 36.4–37; O2SAT 95–99
[2017-09-05] MEDS: MoRPHine SULFATE 2 MG/ML CARP IV PRN ×2 (03:36→12:29)
[2017-09-05 07:10] LABS: HEMATOCRIT 30.3 % (37-47); HEMOGLOBIN 9.7 g/dL (12.0-16.0); MEAN CELL VOLUME 84.4 fL (80-100); RED CELL DISTRIBUTION WIDTH CV 15.6 % (11.5-14.5); RED CELL DISTRIBUTION WIDTH SD 47.4 fL (36.4-46.3); WHITE BLOOD COUNT 2.62 K/uL (4.8-10.8)
[2017-09-05 07:11] LABS: MEAN PLATELET VOLUME 10.3 fL (7.4-10.4); PLATELET COUNT 77 K/uL (130-400)
[2017-09-05 07:39] LABS: CALCIUM 8.6 mg/dl (8.5-10.1); CREATININE 0.89 mg/dl (0.60-1.20); POTASSIUM 4.1 mmol/L (3.5-5.1)
[2017-09-05] MEDS: BUDESONIDE EC 3 MG CAP PO SCH (11:36)
[2017-09-05] MEDS: BOOST BREEZE NUTRITION DRINK 1 BOX PO SCH ×2 (11:36→17:03)
[2017-09-05] MEDS: PANTOprazole SOD 40 MG TAB PO SCH ×2 (11:37→19:46)
[2017-09-05] MEDS: MAGNESIUM OXIDE 400 MG TAB PO SCH ×2 (11:37→19:46)
[2017-09-05] MEDS: PENTOSAN POLYSULFATE SODIUM 100 MG CAP PO SCH ×2 (11:37→19:51)
[2017-09-05] MEDS: MONTELUKAST SOD 10 MG TAB PO SCH (11:37)
[2017-09-05] MEDS: ALPRAZOLAM 0.5 MG TAB PO PRN ×2 (11:38→19:59)
[2017-09-05] MEDS: FLUTICASONE PROPIONATE NA SPR 16 GM BTL NAE SCH (11:38)
[2017-09-05] MEDS: MoRPHine SULFATE IR 15 MG TAB (IMMEDIATE RELEASE) PO PRN (14:52)
--- NOTE | 2017-09-05 17:04 | PROGRESS NOTE ---
DATE: 09/05/2017 AGE: 37 SEX: Female. RACE: . I had the pleasure of seeing Nya Geronimo at her bedside today. She had multiple complaints including continued abdominal pain in the peristomal region. She states that it is not improved significantly since her arrival. She also complains of multiple mouth sores and states that she has had significant hair loss since she has been hospitalized. She denies any hematemesis, melena or bloody output from her ileostomy. She denies any further complaints and does state that she has been tolerating her diet. REVIEW OF SYSTEMS: Positive for mouth sores. Positive for hair loss, otherwise negative x10 system review. OBJECTIVE: VITAL SIGNS: Temp 36.4, pulse 70, respirations 16, blood pressure 103/70, pulse ox 98% on room air. GENERAL: She is awake, cooperative, in no acute distress, chronic ill-appearing. HEAD: Normocephalic and atraumatic. EYES: Pupils equally round. Extraocular muscles are intact. ENT: External evaluation of ears and nose are normal. Poor dentition. NECK: Soft and supple. CHEST: Clear to auscultation bilaterally. CARDIOVASCULAR: Regular rate and rhythm. ABDOMEN: Soft, tender in the peristomal area, nondistended. Ileostomy noted in the right upper quadrant. EXTREMITIES: No clubbing, cyanosis, or edema. LABORATORY STUDIES: From today include a white blood cell count of 2.62, hemoglobin 9.7, hematocrit 30.3 and a platelet count of 77. Sodium is 138, potassium 4.1, chloride 101, bicarbonate 33, BUN 23, creatinine 0.89, blood glucose 87, calcium is 8.6. IMPRESSION: A 37-year-old female with peristomal pain and a history of Crohn disease status post colectomy with ileostomy. PLAN: At the current time, I would recommend continuing on budesonide 9 mg p.o. daily. I will recommend that she undergo both an ileoscopy via stoma as well as an upper endoscopy tomorrow, as CT scan did show some gastric thickening and distention, I will continue on Protonix 40 mg daily. I will give her a modified bowel prep with 4 doses of MiraLax tonight and I will check a thyroid panel in regards to her recent hair loss. Once again, thanks for allowing me to participate in the care of this patient. If you have any further questions, please do not hesitate in contacting me.
[2017-09-05] MEDS ORDERED: DICYCLOMINE HCL 10 MG/ML 2 ML AMP IM ONE (18:45)
--- NOTE | 2017-09-05 19:25 | Progress Note ---
Medicine Progress Note Date & Time of Visit: Sep 05, 2017 at 11:04. Subjective Pt was seen and examined She was in a deep sleep when i came Pt said that she continues to have a lot of pain when i asked her that she was in deep sleep when i came she said that because she was awake all night she said that she had more pain this morning Pt said that she had vaginal bleeding last night she said that she had a lot of bleeding Nurse did not see any bleeding yet. She is wearing a pad now i told her to let the nurse know to check the pad when she changes it She said that the pad sometimes intact with blood She said that most of her bleeding occurs when she sits on the toilet to urinate she said that a gosh of blood usually comes out I told pt that it does not seem that she bled a lot because her hg stable (same from yesterday) She replied " if i thought that she was lying" I explained to her that her hgb is stable and we will continue monitor and ELECTRONIC TRAIN CONTROL TECHNICIAN will come to evaluate her She was not too happy because her specialists do not come everyday to see her Pt also requested to see her regular OBGYN I explained to her that her OBGYN was not available and I am going to consult the healthcare market consultant OBGYN to see her Pt was said that she was not too happy with her care and requested to see another hospitalist Case discussed with Hospilalist Dr. Mckeon that will see pt tomorrow. Objective Last 8 Hrs Date Time Temp Pulse Resp B/P (MAP) Pulse Ox O2 Delivery O2 Flow Rate FiO2 09/05/17 16:49 Room Air 09/05/17 16:44 36.9 77 16 104/72 (83) 98 Room Air 09/05/17 16:00 98 Room Air 09/05/17 12:19 36.4 70 16 103/70 (81) 98 Room Air Physical Exam: Exam limited General- No acute distress Neuro- alert, oriented, speech fluent Laboratory Results: Last 24 Hours Test 09/05/17 06:16 09/05/17 07:04 White Blood Count 2.62 K/uL Red Blood Count 3.59 M/uL Hemoglobin 9.7 g/dL Hematocrit 30.3 % Mean Corpuscular Volume 84.4 fL Mean Corpuscular Hemoglobin 27.0 pg Mean Corpuscular Hemoglobin Concent 32.0 g/dl RDW Standard Deviation 47.4 fL RDW Coefficient of Variation 15.6 % Platelet Count 77 K/uL Mean Platelet Volume 10.3 fL Sodium Level 138 mmol/L Potassium Level 4.1 mmol/L Chloride Level 101 mmol/L Carbon Dioxide Level 33 mmol/L Anion Gap 4.0 mmol/L Blood Urea Nitrogen 23 mg/dl Creatinine 0.89 mg/dl Est Creatinine Clear Calc Drug Dose 81.4 ml/min Estimated GFR () 95.3 Estimated GFR (Non- 82.2 BUN/Creatinine Ratio 26.3 Random Glucose 87 mg/dl Calcium Level 8.6 mg/dl Thyroid Stimulating Hormone (TSH) 0.948 uIu/ml Assessment & Plan Abdominal pain CT abd showed No acute process within the chest. No dilated loops of bowel to suggest an obstruction. Repeat abdominal xray showed no obstruction Has history of adhesions on the ileostomy site Ostomy nurse changed Ostomy ring Pt has been getting morphine around the clock GI concerned re: chronic Morphine use in the setting of Crohn's disease Official Pain Management consult cancelled Dr. Sy recommends continue usual PO Morphine and add PRN Morphine IV for breakthrough 09/05 She continue to have pain with no improvement Dr Jaimes was notified and will see pt later Continue pain control Tolerated diet well PANCYTOPENIA THROMBOCYTOPENIA SPLENOMEGALY history of chronic thrombocytopenia pancytopenia likely from ongoing illness Hematology on board Will monitor for sign of bleeding If wbc worsening, consider bone marrow aspiration by hematology plt 71 and wbc 2.7 today Continue monitor CBC Case discussed today with Dr. Arredondo Stable VAGINAL BLEEDING hgb stable Case discussed with OBGYN that will see pt in consult As per ELECTRONIC TRAIN CONTROL TECHNICIAN, vaginal exam will be limited while in the hospital Continue monitor Hbg Advised pt to inform nurse while changing his vaginal pad HEADACHE Neuro consulted Recommend Mg and Riboflavin Due to increase output on ostomy, will hold on Mg for now riboflavin can be starting outpatient TREMOR neuro on board Plan to start on med as an outpatient Follow up with neuro in 3-4 weeks EPISTAXIS Mostly due to Low platelet Advised pt to avoid blowing her nose starting on nasal saline prn DEPRESSION continue usual medications stable DVT prophylaxis SCDs due to thrombocytopenia CODE STATUS FULL CODE Current Inpatient Medications: Current Inpatient Medications Medications (Trade) Dose Ordered Sig/Tamar Route Start Time Stop Time Status Last Admin Dose Admin Baclofen (Lioresal Tab) 10 mg TID PRN PO 08/29/17 03:30 09/28/17 03:29 Budesonide (Entocort EC Cap) 9 mg DAILY PO 08/29/17 08:00 09/28/17 08:59 09/05/17 11:36 9 MG Fluoxetine HCl (Prozac Cap) 20 mg HS PO 08/29/17 21:00 09/28/17 20:59 09/04/17 20:56 20 MG Levalbuterol (Xopenex Hfa Inhaler) 2 puffs Q4H PRN INH 08/29/17 03:30 09/28/17 03:29 Metoclopramide HCl (Reglan Tab) 10 mg Q6H PRN PO 08/29/17 03:30 09/28/17 03:29 Montelukast Sodium (Singulair Tab) 10 mg DAILY PO 08/29/17 08:00 09/28/17 08:59 09/05/17 11:37 10 MG Pantoprazole Sodium (Protonix Tab) 40 mg BID PO 08/29/17 08:00 09/28/17 08:59 09/05/17 11:37 40 MG Phenazopyridine HCl (Pyridium Tab) 200 mg TID PRN PO 08/29/17 03:30 09/28/17 03:29 Valacyclovir HCl (Valtrex Tab) 500 mg DAILY PO 08/29/17 08:00 09/08/17 08:59 09/05/17 11:37 500 MG Acetaminophen 100 ml @ 400 mls/hr Q8H PRN IV 08/29/17 03:30 09/28/17 03:29 09/03/17 15:20 400 MLS/HR Miscellaneous (Iv Fluids Completed) 1 ea PRN PRN N/A 08/29/17 05:00 08/29/18 04:59 09/02/17 05:13 1 EA Al Hydroxide/Mg Hydroxide/ Diphenhydramine HCl/Lidocaine HCl/ Sucralfate/Barcode Q4H PRN PO 08/29/17 06:45 09/04/17 08:43 5 ML Fluoxetine HCl (Prozac Cap) 40 mg HS PO 08/29/17 21:00 09/28/17 20:59 09/04/17 21:00 40 MG Enteral Nutritional Formula (Boost Breeze Nutritional Drink) 1 box BIDM PO 08/29/17 17:00 09/28/17 16:59 09/05/17 17:03 1 BOX Alprazolam (Xanax Tab) 1 mg HS PRN PO 08/29/17 20:00 09/28/17 19:59 09/04/17 21:08 1 MG Alprazolam (Xanax Tab) 0.5 mg QAM PRN PO 08/29/17 20:00 09/28/17 19:59 09/05/17 11:38 0.5 MG Pentosan Polysulfate Sodium (Elmiron) 300 mg BID PO 08/31/17 20:00 09/30/17 19:59 09/05/17 11:37 300 MG Fluticasone Propionate (Flonase Nasal [place]) 2 sprays DAILY ROSARIO 09/01/17 08:00 10/01/17 07:59 09/05/17 11:38 2 SPRAYS Simethicone (Mylicon Chew Tab) 80 mg Q6H PRN PO 09/01/17 17:30 10/01/17 17:29 09/01/17 20:46 80 MG Morphine Sulfate (MoRPHine SULFATE IR TAB) 30 mg TID PRN PO 09/02/17 18:00 09/14/17 17:59 09/05/17 14:52 30 MG Benzocaine (Orajel 20% Oral Gel) 1 appln Q6H PRN MT 09/02/17 18:00 10/02/17 17:59 09/04/17 08:43 1 APPLN Magnesium Oxide (Mag-Ox Tab) 400 mg BID PO 09/03/17 08:00 10/03/17 07:59 09/05/17 11:37 400 MG Sodium Chloride ([place] Nasal [place]) 1 sprays Q4H PRN NA 09/03/17 18:45 10/03/17 18:44 09/03/17 19:00 1 SPRAYS Morphine Sulfate (MoRPHine SULFATE INJ) 2 mg Q12 PRN IV 09/05/17 08:15 09/13/17 20:59 09/05/17 12:29 2 MG Polyethylene (Miralax Powder Packet) 17 gm DAILY PO 09/06/17 08:00 10/06/17 07:59 Iron Sucrose 200 mg/Sodium Chloride 110 ml @ 420 mls/hr TODAY IV 09/06/17 07:00 09/06/17 07:16 UNV
[2017-09-05] MEDS: POLYETHYLENE (MIRALAX) 17 GM PACK PO SCH ×3 (19:45→23:35)
[2017-09-05] MEDS: FLUOXETINE HCL 20 MG CAP PO SCH ×2 (19:47→19:50)
--- NOTE | 2017-09-05 19:54 | Hematology/Oncology Prog Note ---
Hematology/Onc Progress Note Date of Service Sep 05, 2017. Subjective S: Patient still complain of abdominal pain at ileostomy site Also has bruises on legs Had episode of epistaxis which resolved. Denies any nasal congestion Also has some soreness of lower lip and side of her tongue which she states occurs sometimes when she has exacerbation of her Chrons Also notice some hair loss few days ago - states more than usual for her Review of Systems: Constitutional: + sweats (sometimes), + fatigue, No fever Respiratory: No cough, No wheezing, No shortness of breath Cardiovascular: No chest pain Abdomen: + pain, + diarrhea, No nausea, No vomiting Female : + abnormal vaginal bleeding, + problem reported Vital Signs Vital Signs Past 12 Hours Date Time Temp Pulse Resp B/P (MAP) Pulse Ox O2 Delivery O2 Flow Rate FiO2 09/05/17 16:49 Room Air 09/05/17 16:44 36.9 77 16 104/72 (83) 98 Room Air 09/05/17 16:00 98 Room Air 09/05/17 12:19 36.4 70 16 103/70 (81) 98 Room Air 09/05/17 10:06 Room Air Physical Exam Gen: awake and alert NAD HEENT: Anicteric no pallor dry cracked lower lip Lungs: CTAB CV: S1 S2 RRR ABD: +abd tenderness around ileostomy Ext: no edma Skin: few resolving ecchymoses on lower extremities Laboratory Results Past 24 Hours Test 09/05/17 06:16 09/05/17 07:04 Range/Units White Blood Count 2.62 4.8-10.8 K/uL Red Blood Count 3.59 4.2-5.4 M/uL Hemoglobin 9.7 12.0-16.0 g/dL Hematocrit 30.3 37-47 % Mean Corpuscular Volume 84.4 80-100 fL Mean Corpuscular Hemoglobin 27.0 25-34 pg Mean Corpuscular Hemoglobin Concent 32.0 32-36 g/dl RDW Standard Deviation 47.4 36.4-46.3 fL RDW Coefficient of Variation 15.6 11.5-14.5 % Platelet Count 77 130-400 K/uL Mean Platelet Volume 10.3 7.4-10.4 fL Sodium Level 138 136-145 mmol/L Potassium Level 4.1 3.5-5.1 mmol/L Chloride Level 101 98-107 mmol/L Carbon Dioxide Level 33 21-32 mmol/L Anion Gap 4.0 3-11 mmol/L Blood Urea Nitrogen 23 7-18 mg/dl Creatinine 0.89 0.60-1.20 mg/dl Est Creatinine Clear Calc Drug Dose 81.4 ml/min Estimated GFR () 95.3 Estimated GFR (Non- 82.2 BUN/Creatinine Ratio 26.3 10-20 Random Glucose 87 70-99 mg/dl Calcium Level 8.6 8.5-10.1 mg/dl Thyroid Stimulating Hormone (TSH) 0.948 0.300-4.500 uIu/ml Assessment & Plan 37 year old female with Chron's admitted with abdominal pain She had a normal WBC and hemoglobin level and platelet count was 92 on admission however blood counts have dropped from her baseline during this admission likely due to marrow suppression from medication and chronic disease/ inflammation Anemia stable also due to iron deficiency and patient reported recent GI blood loss on admission Neutropenia and thrombocytopenia improved overall - If feasible avoid medications that can cause significant marrow suppression as her counts are still low give venofer 200mg IV x 1 tomorrow [facility] flow is pending bruising: from low platelet ct. avoid any trauma or injury. check pt/ptt fibrinogen. no transfusion indicated at this time use nasal saline drops and moisturizer for lips please check differential with her CBCs Follow up in the office upon discharge
[2017-09-05] MEDS: ACETAMINOPHEN IV 100 ML IV PRN (21:06)
[2017-09-05 21:19] LABS: PTT PATIENT 25.2 SECONDS (21.0-31.0)
--- NOTE | 2017-09-05 22:20 | GYNECOLOGICAL CONSULTATION ---
DATE OF CONSULTATION: 09/05/2017 REASON FOR CONSULTATION: Vaginal bleeding. HISTORY OF PRESENT ILLNESS: The patient is a 37-year-old white female with a long history of GI issues including Crohn disease and colon cancer for which she has had a colectomy and currently has a right lower quadrant ileostomy. She presented because of what appears to be a small-bowel obstruction. She mentioned that she was having vaginal bleeding which has been an ongoing issue since her hysterectomy and bilateral oophorectomy done in 2010. She has had multiple procedures to diagnosis the bleeding and all have been nondiagnostic. She was seen in interventional radiology with Dr. Lopez at [place] to identify an AVM, but that apparently was inconclusive. She has been seeing Dr. Raman in the office for application of Monsel's to control the bleeding. She notes the bleeding can be heavy enough to be passing some clots vaginally. She has never been on estrogen replacement therapy as she has a history of endometriosis which was the reason for her hysterectomy in 2010. She has tried estrogen vaginal cream in the past, but has never been consistent with using it. She uses it intermittently at best. The patient is requesting Monsel's application since she is currently having bleeding while she is admitted. The Monsel's was placed at the cuff of the vagina. There was a scant amount of dark brown blood in the vaginal vault. The vaginal vault is quite atrophic. No obvious bleeding site was noted but there was blood at the vaginal cuff. The patient tolerated that procedure well. I suspect this may be a small bowel fistula to her vaginal cuff which may be bleeding intermittently. There has been no evidence of stool or any kind of other unusual discharge the patient has noted. Suggested that she restart her estrogen vaginal cream 1 gram vaginally, just to be inserted just inside the vaginal opening, to be done twice a week. The patient is agreeable to that and we will proceed with this new medication after her ileoscopy, which is to be done tomorrow. Thank you very much for this consult. We will follow along with her progress.
[2017-09-06] VITALS (7 sets, daily range): BP systolic 100–113; BP diastolic 66–78; PULSE 64–102; TEMP 36.4–37.6; O2SAT 96–99
[2017-09-06] MEDS: POLYETHYLENE (MIRALAX) 17 GM PACK PO SCH (02:01)
[2017-09-06] MEDS ORDERED: IRON SUCROSE INJ 200 MG in SODIUM CHLORIDE 0.9% 100ML 100 ML IV SCH (07:00)
[2017-09-06] MEDS: BUDESONIDE EC 3 MG CAP PO SCH ×2 (07:31→12:53)
[2017-09-06] MEDS: MAGNESIUM OXIDE 400 MG TAB PO SCH ×3 (07:31→20:09)
[2017-09-06] MEDS: PANTOprazole SOD 40 MG TAB PO SCH ×3 (07:31→20:08)
[2017-09-06] MEDS: PENTOSAN POLYSULFATE SODIUM 100 MG CAP PO SCH ×3 (07:31→20:08)
[2017-09-06] MEDS: BOOST BREEZE NUTRITION DRINK 1 BOX PO SCH ×2 (07:31→16:35)
[2017-09-06] MEDS: MONTELUKAST SOD 10 MG TAB PO SCH ×2 (07:31→12:54)
[2017-09-06] MEDS: FLUTICASONE PROPIONATE NA SPR 16 GM BTL NAE SCH (07:31)
[2017-09-06 07:58] LABS: HEMATOCRIT 30.8 % (37-47); HEMOGLOBIN 9.8 g/dL (12.0-16.0); MEAN CELL VOLUME 84.6 fL (80-100); MEAN CORPUSCULAR HEMOGLOBIN 26.9 pg (25-34); MEAN CORPUSCULAR HGB CONC 31.8 g/dl (32-36); RED CELL DISTRIBUTION WIDTH CV 15.7 % (11.5-14.5); RED CELL DISTRIBUTION WIDTH SD 47.9 fL (36.4-46.3); WHITE BLOOD COUNT 2.57 K/uL (4.8-10.8)
[2017-09-06] MEDS ORDERED: POLYETHYLENE (MIRALAX) 17 GM PACK PO SCH (08:00)
[2017-09-06 08:06] LABS: BASO % 0.4 %; BASO ABS # 0.01 K/uL (0-0.2); EOS % 2.7 %; EOS ABS # 0.07 K/uL (0-0.5); IG# 0.01 K/uL (0.00-0.02); LYMPH % 35.4 %; LYMPH ABS # 0.91 K/uL (1.2-3.4); MEAN PLATELET VOLUME 9.2 fL (7.4-10.4); MONO ABS # 0.18 K/uL (0.11-0.59); NEUT % 54.1 %; NEUT ABS # 1.39 K/uL (1.4-6.5); PLATELET COUNT 69 K/uL (130-400)
--- NOTE | 2017-09-06 11:13 | GI REPORT ---
Procedure Date: 09/06/2017 10:44 AM Procedure: Upper GI endoscopy Indications: Generalized abdominal pain, Abnormal CT of the GI tract Medicines: Monitored Anesthesia Care Complications: No immediate complications. Estimated Blood Loss: Estimated blood loss: none. Procedure: Pre-Anesthesia Assessment: - Prior to the procedure, a History and Physical was performed, and patient medications and allergies were reviewed. The patient's tolerance of previous anesthesia was also reviewed. The risks and benefits of the procedure and the sedation options and risks were discussed with the patient. All questions were answered, and informed consent was obtained. Prior Anticoagulants: The patient has taken no previous anticoagulant or antiplatelet agents. ASA Grade Assessment: III - A patient with severe systemic disease. After reviewing the risks and benefits, the patient was deemed in satisfactory condition to undergo the procedure. After obtaining informed consent, the endoscope was passed under direct vision. Throughout the procedure, the patient's blood pressure, pulse, and oxygen saturations were monitored continuously. The scope was introduced through the mouth, and advanced to the second part of duodenum. The upper GI endoscopy was accomplished without difficulty. The patient tolerated the procedure well. Findings: Patchy candidiasis was found in the entire esophagus. Cells for cytology were obtained by brushing. A small hiatal hernia was present. Localized mild inflammation characterized by erythema was found in the gastric antrum. Biopsies were taken with a cold forceps for histology. The examined duodenum was normal. Biopsies for histology were taken with a cold forceps for evaluation of celiac disease. Impression: - Monilial esophagitis. Cells for cytology obtained. - Small hiatal hernia. - Gastritis. Biopsied. - Normal examined duodenum. Biopsied. Recommendation: - [facility]. - Diflucan (fluconazole) 400 mg PO today, the 200 mg by mouth daily for 10 days. - Continue present medications. Douglas Jaimes DO 09/06/2017 11:13:38 AM This report has been signed electronically. Note Initiated On: 09/06/2017 10:44 AM I attest to the content of the Intraoperative Record and orders documented therein, exceptions below
[2017-09-06] MEDS ORDERED: LIDOCAINE HCL 2% 2 ML VIAL (20MG/ML) ONE (11:14)
[2017-09-06] MEDS ORDERED: PROPOFOL IV EMULSION 10 MG/ML 20 ML VIAL IV ONE (11:14)
--- NOTE | 2017-09-06 11:18 | GI REPORT ---
Procedure Date: 09/06/2017 11:00 AM Procedure: Colonoscopy Indications: Generalized abdominal pain, Abnormal CT of the GI tract Medicines: Monitored Anesthesia Care Complications: No immediate complications. Estimated Blood Loss: Estimated blood loss: none. Procedure: Pre-Anesthesia Assessment: - Prior to the procedure, a History and Physical was performed, and patient medications and allergies were reviewed. The patient's tolerance of previous anesthesia was also reviewed. The risks and benefits of the procedure and the sedation options and risks were discussed with the patient. All questions were answered, and informed consent was obtained. Prior Anticoagulants: The patient has taken no previous anticoagulant or antiplatelet agents. ASA Grade Assessment: III - A patient with severe systemic disease. After reviewing the risks and benefits, the patient was deemed in satisfactory condition to undergo the procedure. After I obtained informed consent, the scope was passed under direct vision. Throughout the procedure, the patient's blood pressure, pulse, and oxygen saturations were monitored continuously. The scope was introduced through the ileostomy and advanced 80 cm into the ileum. The colonoscopy was performed without difficulty. The patient tolerated the procedure well. The quality of the bowel preparation was good. Findings: The proximal ileum appeared normal. Biopsies were taken with a cold forceps for histology. Impression: - The examined portion of the ileum was normal. Biopsied. Recommendation: - [facility]. - Await pathology results. - Advance diet as tolerated. Douglas Jaimes, 09/06/2017 11:17:57 AM This report has been signed electronically. Note Initiated On: 09/06/2017 11:00 AM I attest to the content of the Intraoperative Record and orders documented therein, exceptions below
--- NOTE | 2017-09-06 11:36 | Anesthesiology Progress Note ---
Anesthesia Post Op Note Date & Time Sep 06, 2017 at 11:36 Vital Signs Pain Intensity: 0.0 Vital Signs Past 12 Hours Date Time Temp Pulse Resp B/P (MAP) Pulse Ox O2 Delivery O2 Flow Rate FiO2 09/06/17 11:33 78 16 98/65 (76) 99 Room Air 09/06/17 11:18 85 16 91/57 (68) 98 Room Air 09/06/17 10:30 36.5 66 22 104/72 (83) 96 Room Air 09/06/17 08:00 96 Room Air 09/06/17 07:41 36.5 64 16 100/66 (77) 96 Room Air 09/06/17 04:02 36.6 65 20 100/67 (78) 98 Room Air 09/06/17 00:20 Room Air Notes Mental Status: alert / awake / arousable, participated in evaluation Pt Amnestic to Procedure: Yes Nausea / Vomiting: adequately controlled Pain: adequately controlled Airway Patency, RR, SpO2: stable & adequate BP & HR: stable & adequate Hydration State: stable & adequate Anesthetic Complications: no major complications apparent
[2017-09-06] MEDS ORDERED: FLUCONAZOLE 100 MG TAB PO STA (11:56)
[2017-09-06] MEDS: MoRPHine SULFATE 2 MG/ML CARP IV PRN (12:22)
[2017-09-06] MEDS: MoRPHine SULFATE IR 15 MG TAB (IMMEDIATE RELEASE) PO PRN (14:41)
--- NOTE | 2017-09-06 17:49 | Progress Note ---
Subjective Date of Service: Sep 06, 2017. Subjective Pt evaluation today including: conversation w/ patient, physical exam, lab review, review of studies, review of inpatient medication list Saw/examined the patient in room 416 She is not doing well, states she does not want to go home Problem List Medical Problems: (1) Abdominal pain Status: Acute (2) Abdominal pain Status: Acute (3) Abdominal pain Status: Acute (4) Abdominal pain Status: Acute (5) Abnormal vaginal bleeding Status: Acute (6) Crohn's disease Status: Acute (7) Crohns disease Status: Acute (8) Dehydration Status: Acute (9) Dehydration Status: Acute (10) Dehydration Status: Acute (11) Diffuse abdominal pain Status: Acute (12) Headache Status: Acute (13) Hypotension Status: Acute (14) Intractable abdominal pain Status: Acute (15) Leukopenia Status: Acute (16) Lower abdominal pain Status: Acute (17) Paronychia of toe of left foot Status: Acute (18) Small bowel obstruction Status: Acute (19) Symptoms of urinary tract infection Status: Acute (20) Urinary tract infection Status: Acute (21) UTI (urinary tract infection) Status: Acute (22) UTI (urinary tract infection) Status: Acute (23) UTI (urinary tract infection) Status: Acute Review of Systems Constitutional: + weakness Abdomen: + pain, No nausea, No vomiting, No diarrhea, No constipation, No GI bleeding Neurologic: + problem reported (tremors) Psychiatric: + depression symptoms, + anxiety Medications Current Inpatient Medications Medications (Trade) Dose Ordered Sig/Tamar Route Start Time Stop Time Status Last Admin Dose Admin Baclofen (Lioresal Tab) 10 mg TID PRN PO 08/29/17 03:30 09/28/17 03:29 Budesonide (Entocort EC Cap) 9 mg DAILY PO 08/29/17 08:00 09/28/17 08:59 09/06/17 12:53 9 MG Fluoxetine HCl (Prozac Cap) 20 mg HS PO 08/29/17 21:00 09/28/17 20:59 09/05/17 19:47 20 MG Levalbuterol (Xopenex Hfa Inhaler) 2 puffs Q4H PRN INH 08/29/17 03:30 09/28/17 03:29 Metoclopramide HCl (Reglan Tab) 10 mg Q6H PRN PO 08/29/17 03:30 09/28/17 03:29 Montelukast Sodium (Singulair Tab) 10 mg DAILY PO 08/29/17 08:00 09/28/17 08:59 09/06/17 12:54 10 MG Pantoprazole Sodium (Protonix Tab) 40 mg BID PO 08/29/17 08:00 09/28/17 08:59 09/06/17 12:54 40 MG Phenazopyridine HCl (Pyridium Tab) 200 mg TID PRN PO 08/29/17 03:30 09/28/17 03:29 Valacyclovir HCl (Valtrex Tab) 500 mg DAILY PO 08/29/17 08:00 09/08/17 08:59 09/06/17 12:53 500 MG Acetaminophen 100 ml @ 400 mls/hr Q8H PRN IV 08/29/17 03:30 09/28/17 03:29 09/05/17 21:06 400 MLS/HR Miscellaneous (Iv Fluids Completed) 1 ea PRN PRN N/A 08/29/17 05:00 08/29/18 04:59 09/02/17 05:13 1 EA Al Hydroxide/Mg Hydroxide/ Diphenhydramine HCl/Lidocaine HCl/ Sucralfate/Barcode Q4H PRN PO 08/29/17 06:45 09/04/17 08:43 5 ML Fluoxetine HCl (Prozac Cap) 40 mg HS PO 08/29/17 21:00 09/28/17 20:59 09/05/17 19:50 40 MG Enteral Nutritional Formula (Boost Breeze Nutritional Drink) 1 box BIDM PO 08/29/17 17:00 09/28/17 16:59 09/06/17 16:35 1 BOX Alprazolam (Xanax Tab) 1 mg HS PRN PO 08/29/17 20:00 09/28/17 19:59 09/05/17 19:59 1 MG Alprazolam (Xanax Tab) 0.5 mg QAM PRN PO 08/29/17 20:00 09/28/17 19:59 09/05/17 11:38 0.5 MG Pentosan Polysulfate Sodium (Elmiron) 300 mg BID PO 08/31/17 20:00 09/30/17 19:59 09/06/17 12:53 300 MG Fluticasone Propionate (Flonase Nasal [place]) 2 sprays DAILY ROSARIO 09/01/17 08:00 10/01/17 07:59 09/06/17 07:31 2 SPRAYS Simethicone (Mylicon Chew Tab) 80 mg Q6H PRN PO 09/01/17 17:30 10/01/17 17:29 09/01/17 20:46 80 MG Benzocaine (Orajel 20% Oral Gel) 1 appln Q6H PRN MT 09/02/17 18:00 10/02/17 17:59 09/04/17 08:43 1 APPLN Magnesium Oxide (Mag-Ox Tab) 400 mg BID PO 09/03/17 08:00 10/03/17 07:59 09/06/17 12:53 400 MG Sodium Chloride (Falls Nasal [place]) 1 sprays Q4H PRN NA 09/03/17 18:45 10/03/17 18:44 09/03/17 19:00 1 SPRAYS Fluconazole (Diflucan Tab) 200 mg QAM PO 09/07/17 08:00 09/17/17 07:59 Objective Vital Signs Date Time Temp Pulse Resp B/P (MAP) Pulse Ox O2 Delivery O2 Flow Rate FiO2 09/06/17 15:30 36.4 90 18 112/77 (89) 98 Room Air 09/06/17 12:10 36.5 70 16 101/66 (78) 99 09/06/17 11:48 64 16 101/61 (74) 97 Room Air 09/06/17 11:33 78 16 98/65 (76) 99 Room Air 09/06/17 11:18 85 16 91/57 (68) 98 Room Air 09/06/17 10:30 36.5 66 22 104/72 (83) 96 Room Air 09/06/17 08:00 96 Room Air 09/06/17 07:41 36.5 64 16 100/66 (77) 96 Room Air 09/06/17 04:02 36.6 65 20 100/67 (78) 98 Room Air 09/06/17 00:20 Room Air 09/05/17 23:22 36.7 68 18 101/67 (78) 98 Room Air 09/05/17 20:00 36.7 95 18 110/73 (85) 95 Room Air Physical Exam General Appearance: + thin, + pertinent finding (+anxious, tremulousness; agitated) Abdomen: + pertinent finding (+ileostomy) Neurologic/Psychiatric: alert, + depressed affect Laboratory Results Last 24 Hours Test 09/05/17 20:06 09/06/17 07:31 Prothrombin Time 10.0 SECONDS Prothromb Time International Ratio 1.0 Activated Partial Thromboplast Time 25.2 SECONDS Partial Thromboplastin Ratio 1.0 Fibrinogen 250 mg/dl White Blood Count 2.57 K/uL Red Blood Count 3.64 M/uL Hemoglobin 9.8 g/dL Hematocrit 30.8 % Mean Corpuscular Volume 84.6 fL Mean Corpuscular Hemoglobin 26.9 pg Mean Corpuscular Hemoglobin Concent 31.8 g/dl Platelet Count 69 K/uL Mean Platelet Volume 9.2 fL Neutrophils (%) (Auto) 54.1 % Lymphocytes (%) (Auto) 35.4 % Monocytes (%) (Auto) 7.0 % Eosinophils (%) (Auto) 2.7 % Basophils (%) (Auto) 0.4 % Neutrophils # (Auto) 1.39 K/uL Lymphocytes # (Auto) 0.91 K/uL Monocytes # (Auto) 0.18 K/uL Eosinophils # (Auto) 0.07 K/uL Basophils # (Auto) 0.01 K/uL RDW Standard Deviation 47.9 fL RDW Coefficient of Variation 15.7 % Immature Granulocyte % (Auto) 0.4 % Immature Granulocyte # (Auto) 0.01 K/uL Assessment and Plan This is a 37 year old female with PMH of Crohn's disease, colorectal CA s/p resection and ileostomy bag, interstitial cystitis, Raynaud's, fibromyalgia presented secondary to abdominal pain Abdominal pain 09/[address] Jaimes today colonoscopy and EGD performed found possible monilial esophagitis - Daniella started spoke in depth about the patient's condition specifically, patient should NOT be on narcotics as it decreases her bowel motility - this is a recommendation that I am making as well as the GI specialist follow-up made for her colorectal surgeon, Dr. Valladares at [place], on September 16 at 1:45PM as per Dr. Jaimes, she should be discharged as there are no further plans for any inpatient intervention to note, she has seen recycler for a vaginal bleed - recommendation was estrogen cream and outpatient follow-up she has seen neurology - recommendation made for outpatient follow-up hematology-oncology also saw the patient and recommended iron supplementation and follow-up as outpatient She asked about switching Xanax to Valium - but I believe she should stay on Xanax - outpatient psychiatry follow-up recommended patient stated she refused to be discharged as she is still requiring IV morphine - after explaining that IV morphine decreases bowel motility and may make things worse, she stated she wanted to speak with the patient advocate first Called Ariadna Espino, binder caser, regarding patient's refusal to be discharged. I expressed my concern about narcotic seeking behavior regarding IV morphine. Clinical production assembly supervisor to see patient this evening prior to discharge. No contraindications to discharge. 09/05 CT abd showed No acute process within the chest. No dilated loops of bowel to suggest an obstruction. Repeat abdominal xray showed no obstruction Has history of adhesions on the ileostomy site Ostomy nurse changed Ostomy ring Pt has been getting morphine around the clock GI concerned re: chronic Morphine use in the setting of Crohn's disease Official Pain Management consult cancelled Dr. Sy recommends continue usual PO Morphine and add PRN Morphine IV for breakthrough 09/05 She continue to have pain with no improvement Dr Jaimes was notified and will see pt later Continue pain control Tolerated diet well PANCYTOPENIA THROMBOCYTOPENIA SPLENOMEGALY history of chronic thrombocytopenia pancytopenia likely from ongoing illness Hematology on board Will monitor for sign of bleeding If wbc worsening, consider bone marrow aspiration by hematology plt 71 and wbc 2.7 today Continue monitor CBC Case discussed today with Dr. Arredondo Stable VAGINAL BLEEDING hgb stable Case discussed with OBGYN that will see pt in consult As per ELECTRONIC DESIGN ENGINEER, vaginal exam will be limited while in the hospital Continue monitor Hbg Advised pt to inform nurse while changing his vaginal pad HEADACHE Neuro consulted Recommend Mg and Riboflavin Due to increase output on ostomy, will hold on Mg for now riboflavin can be starting outpatient TREMOR neuro on board Plan to start on med as an outpatient Follow up with neuro in 3-4 weeks EPISTAXIS Mostly due to Low platelet Advised pt to avoid blowing her nose starting on nasal saline prn DEPRESSION continue usual medications stable DVT prophylaxis SCDs due to thrombocytopenia CODE STATUS FULL CODE
[2017-09-06] MEDS: ACETAMINOPHEN 325 MG TAB PO PRN (20:07)
[2017-09-06] MEDS: FLUOXETINE HCL 20 MG CAP PO SCH ×2 (20:10)
[2017-09-06] MEDS: MoRPHine SULFATE 2.5 MG/0.125 ML UDP PO PRN (22:31)
[2017-09-07] MEDS: ACETAMINOPHEN 325 MG TAB PO PRN ×2 (00:06→13:34)
[2017-09-07 04:18] VITALS: BP 112/78; PULSE 75; TEMP 37.1; O2SAT 98
[2017-09-07 07:24] VITALS: BP 111/75; PULSE 66; TEMP 37; O2SAT 96
[2017-09-07 08:00] VITALS: O2SAT 96
[2017-09-07] MEDS ORDERED: FLUCONAZOLE 100 MG TAB PO SCH (08:00)
[2017-09-07] MEDS: FLUTICASONE PROPIONATE NA SPR 16 GM BTL NAE SCH (08:19)
[2017-09-07] MEDS: PENTOSAN POLYSULFATE SODIUM 100 MG CAP PO SCH (08:20)
[2017-09-07] MEDS: BUDESONIDE EC 3 MG CAP PO SCH (08:21)
[2017-09-07] MEDS: MAGNESIUM OXIDE 400 MG TAB PO SCH (08:22)
[2017-09-07] MEDS: MoRPHine SULFATE 2.5 MG/0.125 ML UDP PO PRN (09:07)
[2017-09-07] MEDS: PANTOprazole SOD 40 MG TAB PO SCH (09:08)
[2017-09-07] MEDS: MONTELUKAST SOD 10 MG TAB PO SCH (09:08)
[2017-09-07] MEDS: BOOST BREEZE NUTRITION DRINK 1 BOX PO SCH (11:03)
[2017-09-07 11:34] VITALS: BP 114/73; PULSE 77; TEMP 37; O2SAT 98
[2017-09-07] MEDS ORDERED: Boost Nutritional Drink PO (14:13)
[2017-09-07] MEDS ORDERED: ALPR-411 PO (14:13)
[2017-09-07] MEDS ORDERED: DFL100 PO (14:13)
[2017-09-07] MEDS ORDERED: ACET-1047 PO (14:13)
[2017-09-07] MEDS ORDERED: RXNS10 PO (14:13)
[2017-09-07] MEDS ORDERED: ORJ MT (14:13)
[2017-09-07] MEDS ORDERED: MGNO400 PO (14:13)
--- NOTE | 2017-09-07 14:17 | Progress Note ---
Subjective Date of Service: Sep 07, 2017. Subjective Pt evaluation today including: conversation w/ patient, physical exam, lab review, review of studies, review of inpatient medication list Saw/examined the patient in room 416 She is in much better spirits today Pain is controlled with Roxanol Denies most other symptoms at this time and is eager to go home Problem List Medical Problems: (1) Abdominal pain Status: Acute (2) Abdominal pain Status: Acute (3) Abdominal pain Status: Acute (4) Abdominal pain Status: Acute (5) Abnormal vaginal bleeding Status: Acute (6) Crohn's disease Status: Acute (7) Crohns disease Status: Acute (8) Dehydration Status: Acute (9) Dehydration Status: Acute (10) Dehydration Status: Acute (11) Diffuse abdominal pain Status: Acute (12) Headache Status: Acute (13) Hypotension Status: Acute (14) Intractable abdominal pain Status: Acute (15) Leukopenia Status: Acute (16) Lower abdominal pain Status: Acute (17) Paronychia of toe of left foot Status: Acute (18) Small bowel obstruction Status: Acute (19) Symptoms of urinary tract infection Status: Acute (20) Urinary tract infection Status: Acute (21) UTI (urinary tract infection) Status: Acute (22) UTI (urinary tract infection) Status: Acute (23) UTI (urinary tract infection) Status: Acute Review of Systems Constitutional: + weakness, No fever, No chills Respiratory: No cough, No sputum, No shortness of breath Cardiac: No chest pain, No edema, No palpitations Abdomen: + pain (improved), No nausea, No vomiting, No diarrhea Heme: No abnormal bleeding/bruising Medications Current Inpatient Medications Medications (Trade) Dose Ordered Sig/Tamar Route Start Time Stop Time Status Last Admin Dose Admin Budesonide (Entocort EC Cap) 9 mg DAILY PO 08/29/17 08:00 09/28/17 08:59 09/07/17 08:21 9 MG Fluoxetine HCl (Prozac Cap) 20 mg HS PO 08/29/17 21:00 09/28/17 20:59 09/06/17 20:10 20 MG Levalbuterol (Xopenex Hfa Inhaler) 2 puffs Q4H PRN INH 08/29/17 03:30 09/28/17 03:29 Metoclopramide HCl (Reglan Tab) 10 mg Q6H PRN PO 08/29/17 03:30 09/28/17 03:29 Montelukast Sodium (Singulair Tab) 10 mg DAILY PO 08/29/17 08:00 09/28/17 08:59 09/07/17 09:08 10 MG Pantoprazole Sodium (Protonix Tab) 40 mg BID PO 08/29/17 08:00 09/28/17 08:59 09/07/17 09:08 40 MG Phenazopyridine HCl (Pyridium Tab) 200 mg TID PRN PO 08/29/17 03:30 09/28/17 03:29 09/07/17 11:26 200 MG Valacyclovir HCl (Valtrex Tab) 500 mg DAILY PO 08/29/17 08:00 09/08/17 08:59 09/07/17 09:08 500 MG Miscellaneous (Iv Fluids Completed) 1 ea PRN PRN N/A 08/29/17 05:00 08/29/18 04:59 09/02/17 05:13 1 EA Al Hydroxide/Mg Hydroxide/ Diphenhydramine HCl/Lidocaine HCl/ Sucralfate/Barcode Q4H PRN PO 08/29/17 06:45 09/04/17 08:43 5 ML Fluoxetine HCl (Prozac Cap) 40 mg HS PO 08/29/17 21:00 09/28/17 20:59 09/06/17 20:10 40 MG Enteral Nutritional Formula (Boost Breeze Nutritional Drink) 1 box BIDM PO 08/29/17 17:00 09/28/17 16:59 09/07/17 11:03 1 BOX Alprazolam (Xanax Tab) 1 mg HS PRN PO 08/29/17 20:00 09/28/17 19:59 09/05/17 19:59 1 MG Alprazolam (Xanax Tab) 0.5 mg QAM PRN PO 08/29/17 20:00 09/28/17 19:59 09/05/17 11:38 0.5 MG Pentosan Polysulfate Sodium (Elmiron) 300 mg BID PO 08/31/17 20:00 09/30/17 19:59 09/07/17 08:20 300 MG Fluticasone Propionate (Flonase Nasal [place]) 2 sprays DAILY ROSARIO 09/01/17 08:00 10/01/17 07:59 09/07/17 08:19 2 SPRAYS Simethicone (Mylicon Chew Tab) 80 mg Q6H PRN PO 09/01/17 17:30 10/01/17 17:29 09/01/17 20:46 80 MG Benzocaine (Orajel 20% Oral Gel) 1 appln Q6H PRN MT 09/02/17 18:00 10/02/17 17:59 09/04/17 08:43 1 APPLN Magnesium Oxide (Mag-Ox Tab) 400 mg BID PO 09/03/17 08:00 10/03/17 07:59 09/07/17 08:22 400 MG Sodium Chloride ([address] Nasal [place]) 1 sprays Q4H PRN NA 09/03/17 18:45 10/03/17 18:44 09/03/17 19:00 1 SPRAYS Fluconazole (Diflucan Tab) 200 mg QAM PO 09/07/17 08:00 09/17/17 07:59 09/07/17 08:20 200 MG Morphine Sulfate (Roxanol Oral Soln) 2.5 mg Q8 PRN PO 09/06/17 18:45 09/20/17 18:44 09/07/17 09:07 2.5 MG Acetaminophen (Tylenol Tab) 650 mg Q4H PRN PO 09/06/17 18:45 10/06/17 18:44 09/07/17 13:34 650 MG Objective Vital Signs Date Time Temp Pulse Resp B/P (MAP) Pulse Ox O2 Delivery O2 Flow Rate FiO2 09/07/17 11:34 37.0 77 16 114/73 (87) 98 Room Air 09/07/17 08:00 96 Room Air 09/07/17 07:24 37.0 66 16 111/75 (87) 96 Room Air 09/07/17 04:18 37.1 75 18 112/78 (89) 98 Room Air 09/07/17 00:46 Room Air 09/06/17 23:24 37.4 81 17 113/78 (90) 97 Room Air 09/06/17 19:47 37.6 102 18 107/71 (83) 96 Room Air 09/06/17 15:30 36.4 90 18 112/77 (89) 98 Room Air Physical Exam General Appearance: no apparent distress Respiratory/Chest: no respiratory distress, no accessory muscle use Abdomen: + pertinent finding (+ileostomy) Neurologic/Psychiatric: no motor/sensory deficits, alert, normal mood/affect Laboratory Results Last 24 Hours Test 09/07/17 00:00 Urine Color YELLOW Urine Appearance CLEAR Urine pH 5.5 Urine Specific [place] 1.012 Urine Protein NEG Urine Glucose (UA) NEG Urine Ketones NEG Urine Occult Blood NEG Urine Nitrite NEG Urine Bilirubin NEG Urine Urobilinogen NEG Urine Leukocyte Esterase TRACE Urine WBC (Auto) 1-5 /hpf Urine RBC (Auto) 0-4 /hpf Urine Hyaline Casts (Auto) 0 /lpf Urine Epithelial Cells (Auto) 5-10 /lpf Urine Bacteria (Auto) NEG Assessment and Plan This is a 37 year old female with PMH of Crohn's disease, colorectal CA s/p resection and ileostomy bag, interstitial cystitis, Raynaud's, fibromyalgia presented secondary to abdominal pain Abdominal pain 09/07 patient is agreeable for discharge today will d/c on Roxanol SL 2.5mg q8 for the abdominal pain can alternate with Tylenol, recommended against using morphine tablets while using the liquid solution will also d/c with Diflucan x 13 days (for a total of 2 weeks) outpatient PCP follow-up, outpatient general surgery, urology, neurology, hem- onc, GI, continuous improvement intern follow-up 09/[address] Jaimes today colonoscopy and EGD performed found possible monilial esophagitis - Diflucan started spoke in depth about the patient's condition specifically, patient should NOT be on narcotics as it decreases her bowel motility - this is a recommendation that I am making as well as the GI specialist follow-up made for her colorectal surgeon, Dr. Valladares at [place], on September 16 at 1:45PM as per Dr. Jaimes, she should be discharged as there are no further plans for any inpatient intervention to note, she has seen fire and safety helper for a vaginal bleed - recommendation was estrogen cream and outpatient follow-up she has seen neurology - recommendation made for outpatient follow-up hematology-oncology also saw the patient and recommended iron supplementation and follow-up as outpatient She asked about switching Xanax to Valium - but I believe she should stay on Xanax - outpatient psychiatry follow-up recommended patient stated she refused to be discharged as she is still requiring IV morphine - after explaining that IV morphine decreases bowel motility and may make things worse, she stated she wanted to speak with the patient advocate first Called Ariadna Espino, housing case manager, regarding patient's refusal to be discharged. I expressed my concern about narcotic seeking behavior regarding IV morphine. Clinical yard supervisor cotton gin to see patient this evening prior to discharge. No contraindications to discharge. 09/05 CT abd showed No acute process within the chest. No dilated loops of bowel to suggest an obstruction. Repeat abdominal xray showed no obstruction Has history of adhesions on the ileostomy site Ostomy nurse changed Ostomy ring Pt has been getting morphine around the clock GI concerned re: chronic Morphine use in the setting of Crohn's disease Official Pain Management consult cancelled Dr. Sy recommends continue usual PO Morphine and add PRN Morphine IV for breakthrough 09/05 She continue to have pain with no improvement Dr Jaimes was notified and will see pt later Continue pain control Tolerated diet well PANCYTOPENIA THROMBOCYTOPENIA SPLENOMEGALY history of chronic thrombocytopenia pancytopenia likely from ongoing illness Hematology on board Will monitor for sign of bleeding If wbc worsening, consider bone marrow aspiration by hematology plt 71 and wbc 2.7 today Continue monitor CBC Case discussed today with Dr. Arredondo Stable VAGINAL BLEEDING hgb stable Case discussed with OBGYN that will see pt in consult As per SHELL MOLD BONDER, vaginal exam will be limited while in the hospital Continue monitor Hbg Advised pt to inform nurse while changing his vaginal pad HEADACHE Neuro consulted Recommend Mg and Riboflavin Due to increase output on ostomy, will hold on Mg for now riboflavin can be starting outpatient TREMOR neuro on board Plan to start on med as an outpatient Follow up with neuro in 3-4 weeks EPISTAXIS Mostly due to Low platelet Advised pt to avoid blowing her nose starting on nasal saline prn DEPRESSION continue usual medications stable DVT prophylaxis SCDs due to thrombocytopenia CODE STATUS FULL CODE
--- NOTE | 2017-09-07 14:19 | Discharge Instructions ---
Discharge Instructions Date of Service Sep 07, 2017. Admission Reason for Admission: Abdominal Pain Discharge Discharge Diagnosis / Problem: Ileostomal Inflammation Discharge Goals Goal(s): Decrease discomfort, Improve function, Diagnostic testing, Therapeutic intervention Activity Recommendations Activity Limitations: resume your previous activity . Instructions / Follow-Up Instructions / Follow-Up Please follow-up with your primary care physician Please follow-up with Dr. Valladares, colorectal surgery from [place] on September 16 as scheduled Please take magnesium 400mg twice a day - you can crush this for easier use Magnesium hydroxide (milk of mag or liquid magnesium) is more for constipation; but does not bring up magnesium levels as well as the tablets Current Hospital Diet Patient's current hospital diet: Regular Diet Discharge Diet Recommended Diet: Regular Diet Procedures Procedures Performed: EGD AND ILEOSCOPY WITH BX Pending Studies Studies pending at discharge: no Medical Emergencies . Who to Call and When: Medical Emergencies: If at any time you feel your situation is an emergency, please call 911 immediately. . Non-Emergent Contact Non-Emergency issues call your: Primary Care Provider . . "Provider Documentation" section prepared by Buddy Mckeon. . VTE Core Measure Inpt VTE Proph given/why not?: SCD's
--- NOTE | 2017-09-07 14:22 | Discharge Summary ---
Discharge Summary Date of Service Sep 07, 2017. Discharge Summary Admission Date: Sep 02, 2017 at 10:46 Discharge Date: Sep 07, 2017 Discharge Disposition: Home Principal Diagnosis: Ileostomy Inflammation/Abdominal Pain Candidal Esophagitis Crohn's Medication Reconciliation New Medications: Acetaminophen (Mapap) 325 Mg Tab 650 MG PO Q4H PRN for Pain for 30 Days, #240 TAB Benzocaine (Hurricaine) 20 % Gel 1 APPLN MT Q6H PRN for mouth sores for 10 Days, #1 TUBE Fluconazole (Fluconazole) 100 Mg Tab 200 MG PO QAM for 13 Days, #26 TAB Magnesium Oxide (Magnesium-Oxide) 400 Mg Tab 400 MG PO BID for 30 Days, #60 TAB Morphine Sulfate (Morphine Sulfate) 10 Mg/0.5 Ml Soln 2.5 MG PO Q8 PRN for Pain for 7 Days, #3 ML [Boost Nutritional Drink] () 1 BOX LIQD 1 BOX PO BIDM for 30 Days, #60 CAN Changed Medications: Alprazolam (Xanax) 0.5 Mg Tab 0.5 MG PO UD PRN for Anxiety for 30 Days, TAB (Changed from: BID) 1 tab in AM 2 tabs in PM Continued Medications: Baclofen (Lioresal) 10 Mg Tab 10 MG PO TID PRN for Hiccups, TAB Budesonide (Entocort Ec) 3 Mg Cap 9 MG PO DAILY, CAP Diphenhy/Alum/Mag/Sucralfa (Magic Swizzle - Diphenhy/Alum/Mag/Sucralfa) Susp 1 TSP PO Q4H PRN for SORE MOUTH, #200 ML 1 Refill 30ML DIPHENHYDRAMINE SLN 12.5/5ML 60ML MAALOX 4GM CARAFATE SWISH AND SPIT Fluoxetine (Prozac) 40 Mg Cap 40 MG PO HS, CAP TAKE ONE 40 MG CAPSULE ALONG WITH ONE 20 MG CAPSULE TO EQUAL 60 MG DAILY DOSE Fluoxetine Hcl (Prozac) 20 Mg Cap 20 MG PO HS, CAP TAKE ONE 20 MG CAPSULE ALONG WITH ONE 40 MG CAPSULE TO EQUAL 60 MG DAILY DOSE Fluticasone Propionate (Nasal) (Flonase Allergy Relief Ch) 50 Mcg/Act Spr 2 SPRAYS ROSARIO DAILY Levalbuterol Tartrate (Levalbuterol Tartrate Hfa) 45 Mcg/Act Aer 2 PUFFS INH Q4H PRN for Wheezing Loratadine (Claritin) 10 Mg Tab 10 MG PO DAILY, TAB Metoclopramide Hcl (Reglan) 10 Mg Tab 10 MG PO Q6H PRN for Nausea-Hiccups, TAB NAUSEA Montelukast Sodium (Singulair) 10 Mg Tab 10 MG PO DAILY, TAB Pantoprazole (Protonix) 40 Mg Tab 40 MG PO BID, TAB Pentosan Polysulfate Sodium (Elmiron) 100 Mg Cap 300 MG PO BID, CAP TAKE THIS MEDICATION TWICE DAILY WITH WATER 1 TO 2 HOURS AFTER A MEAL Phenazopyridine HCl (Pyridium) 200 Mg Tab 200 MG PO TID PRN for Bladder pain, TAB Prochlorperazine Maleate (Compazine) 10 Mg Tab 10 MG PO TID PRN for Nausea, TAB Valacyclovir (Valtrex) 500 Mg Tab 500 MG PO DAILY, TAB Discontinued Medications: Morphine Sulfate (Morphine Sulfate Ir) 15 Mg Tab 30 MG PO Q8 PRN for Pain Admission Information HPI (per Admitting provider): Patient returns to the ED after evaluation on 08/26/17 for abdominal pain and vomiting with previous CT abdomen exam findings on 08/26/17 of "1. Postsurgical changes of a colectomy and right lower quadrant ileostomy 2. Mildly dilated fluid and feces filled distal small bowel loops. 3. Suspected minimal bowel wall thickening involving the distal ileal loop. 4. Findings are viewed as suspicious for a early or low-grade partial small bowel obstruction with possible active Crohn's versus an infectious ileitis." Patient reports that vomiting stopped but with increase ileostomy output and abdominal pain persists Patient denies fever at home. She is asking for benzodiazepines for anxiety and narcotic pain medications for abdominal pain. Does not appear to be in acute distress Physical Exam (per Admitting): General Appearance: no apparent distress Head: normocephalic, atraumatic Eyes: normal inspection, EOMI, sclerae normal ENT: normal ENT inspection, hearing grossly normal, pharynx normal Neck: supple, no JVD, trachea midline Respiratory/Chest: chest non-tender, lungs clear, normal breath sounds, no respiratory distress, no accessory muscle use Cardiovascular: regular rate, rhythm, no edema, no JVD Abdomen/GI: normal bowel sounds, soft, + pertinent finding (reports tenderness upon palpation near ostomy bag area of right side of abdomen) Back: normal inspection, no muscle spasm, normal range of motion Extremities/Musculoskelatal: normal inspection, no calf tenderness, no pedal edema, non-tender Neurologic/Psych: alert, normal mood/affect, oriented x 3 Skin: normal color, warm/dry, no rash Hospital Course This is a 37 year old female with PMH of Crohn's disease, colorectal CA s/p resection and ileostomy bag, interstitial cystitis, Raynaud's, fibromyalgia presented secondary to abdominal pain Abdominal pain 09/07 patient is agreeable for discharge today will d/c on Roxanol SL 2.5mg q8 for the abdominal pain can alternate with Tylenol, recommended against using morphine tablets while using the liquid solution will also d/c with Diflucan x 13 days (for a total of 2 weeks) outpatient PCP follow-up, outpatient general surgery, urology, neurology, hem- onc, GI, coremaker follow-up 09/[address] Jaimes today colonoscopy and EGD performed found possible monilial esophagitis - Diflucan started spoke in depth about the patient's condition specifically, patient should NOT be on narcotics as it decreases her bowel motility - this is a recommendation that I am making as well as the GI specialist follow-up made for her colorectal surgeon, Dr. Valladares at [facility], on September 16 at 1:45PM as per Dr. Jaimes, she should be discharged as there are no further plans for any inpatient intervention to note, she has seen sports doctor for a vaginal bleed - recommendation was estrogen cream and outpatient follow-up she has seen neurology - recommendation made for outpatient follow-up hematology-oncology also saw the patient and recommended iron supplementation and follow-up as outpatient She asked about switching Xanax to Valium - but I believe she should stay on Xanax - outpatient psychiatry follow-up recommended patient stated she refused to be discharged as she is still requiring IV morphine - after explaining that IV morphine decreases bowel motility and may make things worse, she stated she wanted to speak with the patient advocate first Called Ariadna Espino, watch case polisher, regarding patient's refusal to be discharged. I expressed my concern about narcotic seeking behavior regarding IV morphine. Clinical dials supervisor to see patient this evening prior to discharge. No contraindications to discharge. 09/05 CT abd showed No acute process within the chest. No dilated loops of bowel to suggest an obstruction. Repeat abdominal xray showed no obstruction Has history of adhesions on the ileostomy site Ostomy nurse changed Ostomy ring Pt has been getting morphine around the clock GI concerned re: chronic Morphine use in the setting of Crohn's disease Official Pain Management consult cancelled Dr. Sy recommends continue usual PO Morphine and add PRN Morphine IV for breakthrough 09/05 She continue to have pain with no improvement Dr Jaimes was notified and will see pt later Continue pain control Tolerated diet well PANCYTOPENIA THROMBOCYTOPENIA SPLENOMEGALY history of chronic thrombocytopenia pancytopenia likely from ongoing illness Hematology on board Will monitor for sign of bleeding If wbc worsening, consider bone marrow aspiration by hematology plt 71 and wbc 2.7 today Continue monitor CBC Case discussed today with Dr. Arredondo Stable VAGINAL BLEEDING hgb stable Case discussed with OBGYN that will see pt in consult As per ELECTRICAL ENGINEERING DIRECTOR, vaginal exam will be limited while in the hospital Continue monitor Hbg Advised pt to inform nurse while changing his vaginal pad HEADACHE Neuro consulted Recommend Mg and Riboflavin Due to increase output on ostomy, will hold on Mg for now riboflavin can be starting outpatient TREMOR neuro on board Plan to start on med as an outpatient Follow up with neuro in 3-4 weeks EPISTAXIS Mostly due to Low platelet Advised pt to avoid blowing her nose starting on nasal saline prn DEPRESSION continue usual medications stable DVT prophylaxis SCDs due to thrombocytopenia CODE STATUS FULL CODE Total time spent on discharge = 45 minutes This includes examination of the patient, discharge planning, medication reconciliation, and communication with other providers. Discharge Instructions Please follow-up with your primary care physician Please follow-up with Dr. Valladares, colorectal surgery from [facility] on September 16 as scheduled Please take magnesium 400mg twice a day - you can crush this for easier use Magnesium hydroxide (milk of mag or liquid magnesium) is more for constipation; but does not bring up magnesium levels as well as the tablets
[2017-09-07 14:33] VITALS: BP 114/73; PULSE 77; TEMP 37; O2SAT 98
[2017-09-07] MEDS ORDERED: MBXC PO (15:12)
[2017-09-07] MEDS ORDERED: [UNRECOGNIZED DRUG - CODE] IM (15:12)
[2017-09-28] MEDS ORDERED: VALA500T60 PO (01:35)
[2017-09-28] MEDS ORDERED: PENT100C6 PO (01:35)
[2017-09-28] MEDS ORDERED: MONT1TAB3 PO (01:36)
[2017-09-28] MEDS ORDERED: BUDE1CAP6 PO (13:05)
== END 2017-09-07 15:45 | disposition home or self-care (01) | DRG 394 ==
LOC: C.EDB 00:47 → C.4E 03:22 → ENRESERV 04:56 → OBSVTOIN 09-02 10:46
PROVIDERS: ADMIT Hospitalist; ATTEND Family Medicine
PROC: 0DB68ZX Excision of Stomach, Via Natural or Artificial Opening Endoscopic, Diagnostic (ICD-10-PCS; principal; 2017-09-06 10:28)
PROC: 0DB98ZX Excision of Duodenum, Via Natural or Artificial Opening Endoscopic, Diagnostic (ICD-10-PCS; principal; 2017-09-06 10:28)
PROC: 0DBB8ZX Excision of Ileum, Via Natural or Artificial Opening Endoscopic, Diagnostic (ICD-10-PCS; principal; 2017-09-06 10:28)
DX: K94.19 Other complications of enterostomy (principal); K50.90 Crohn's disease, unspecified, without complications; B37.81 Candidal esophagitis; D61.818 Other pancytopenia; N93.9 Abnormal uterine and vaginal bleeding, unspecified; R25.1 Tremor, unspecified; R04.0 Epistaxis; G43.909 Migraine, unspecified, not intractable, without status migrainosus; R16.1 Splenomegaly, not elsewhere classified; K29.70 Gastritis, unspecified, without bleeding; K44.9 Diaphragmatic hernia without obstruction or gangrene; F32.9 Major depressive disorder, single episode, unspecified; F41.9 Anxiety disorder, unspecified; D50.0 Iron deficiency anemia secondary to blood loss (chronic); K21.9 Gastro-esophageal reflux disease without esophagitis; J45.909 Unspecified asthma, uncomplicated; Z79.899 Other long term (current) drug therapy; Z79.52 Long term (current) use of systemic steroids; Z93.2 Ileostomy status; Z85.038 Personal history of other malignant neoplasm of large intestine; Z83.3 Family history of diabetes mellitus; Z81.8 Family history of other mental and behavioral disorders; Z82.49 Family history of ischemic heart disease and other diseases of the circulatory system; Y83.3 Surgical operation with formation of external stoma as the cause of abnormal reaction of the patient, or of later complication, without mention of misadventure at the time of the procedure

== ENCOUNTER 2017-09-28 13:58 | Emergency (ER) | payer BC, OTHER ==
[~2017-09-28] VITALS: Ht 172.7 cm; Wt 57.2 kg
[~2017-09-28 13:58] MED LIST changes: +ACET-1047 PO; +BUDE1CAP6 PO; +Boost Nutritional Drink PO; +DFL100 PO; +MBXC PO; +MGNO400 PO; +MONT1TAB3 PO; -MORP15TA PO; +ORJ MT; +PENT100C6 PO; +RXNS10 PO; +VALA500T60 PO; +[UNRECOGNIZED DRUG - CODE] IM
[2017-09-28 14:05] VITALS: TEMP 36.6; Ht 172.7 cm; Wt 57.2 kg
[2017-09-28] MEDS ORDERED: DiphenhydrAMINE HCL 50 MG/ML VIAL IV STA (14:30)
[2017-09-28] MEDS ORDERED: PROCHLORPERAZINE 5 MG/ML 2 ML VIAL IV STA (14:30)
[2017-09-28 15:10] LABS: HEMATOCRIT 41.7 % (37-47); HEMOGLOBIN 14.4 g/dL (12.0-16.0); MEAN CELL VOLUME 81.1 fL (80-100); MEAN CORPUSCULAR HGB CONC 34.5 g/dl (32-36); RED CELL DISTRIBUTION WIDTH CV 15.7 % (11.5-14.5); RED CELL DISTRIBUTION WIDTH SD 46.6 fL (36.4-46.3); WHITE BLOOD COUNT 4.56 K/uL (4.8-10.8)
[2017-09-28] MEDS ORDERED: TRAMADOL HCL 50 MG TAB PO STA (15:13)
[2017-09-28 15:18] LABS: BASO % 0.2 %; BASO ABS # 0.01 K/uL (0-0.2); EOS % 2.2 %; IG# 0.01 K/uL (0.00-0.02); LYMPH % 35.3 %; LYMPH ABS # 1.61 K/uL (1.2-3.4); MEAN PLATELET VOLUME 9.8 fL (7.4-10.4); MONO % 5.9 %; MONO ABS # 0.27 K/uL (0.11-0.59); NEUT % 56.2 %; NEUT ABS # 2.56 K/uL (1.4-6.5); PLATELET COUNT 66 K/uL (130-400)
[2017-09-28 15:26] LABS: CALCIUM 9.1 mg/dl (8.5-10.1); CREATININE 0.94 mg/dl (0.60-1.20); POTASSIUM 3.9 mmol/L (3.5-5.1)
[2017-09-28] MEDS ORDERED: ALPR-411 PO (15:28)
--- NOTE | 2017-09-28 15:29 | EMERGENCY ROOM VISIT NOTE ---
History First contact with patient: 14:19 Chief Complaint: NOSE BLEED (MINOR) Stated Complaint: THROMBOCYTOPENIA, BAD NOSE BLEED History of Present Illness The patient is a 37 year old female who presents to the Emergency Room with complaints of a nosebleed lasting for approximately half hour this morning. The patient has a history of anemia and thrombocytopenia. She is currently being treated for a sinus infection with Augmentin. The patient became concerned that her antibiotic was dropping her platelets because of the nosebleed. She called her oncologist who told her to come here for evaluation. The patient is also complaining of a migraine headache. She has a history of migraines and says this feels similar. She took Excedrin at home with minimal relief. The patient is also complaining of itching around her ostomy site, which she has for a history of Crohn's disease. She is also low and supplies for her ostomy Review of Systems 10 system review performed and negative unless noted in HPI or below Past Medical/Surgical History Medical Problems: (1) Anxiety (2) Colon dysplasia (3) Crohn's colitis (4) Depression (5) Endometriosis (6) Fibromyalgia (7) History of iron deficiency anemia (8) Hypotension (9) Ileostomy in place (10) Interstitial cystitis (11) Migraine (12) Raynauds disease (13) SBO (small bowel obstruction) (14) Thrombocytopenia Surgical Problems: (1) H/O colonoscopy (2) H/O esophagogastroduodenoscopy (3) H/O laparoscopy (4) H/O total colectomy (5) S/P appendectomy (6) S/P hysterectomy Family History Diabetes mellitus FH: depression FH: heart disease FHx: cancer FHx: gallbladder disease Hypertension Social History Smoking Status: Never Smoker Alcohol Use: occasionally Drug Use: none Marital Status: Housing Status: lives with significant other Occupation Status: disabled Current/Historical Medications Scheduled Alprazolam (Xanax), 0.5 MG PO AMHS Budesonide (Entocort Ec), 9 MG PO DAILY Fluconazole (Fluconazole), 200 MG PO QAM Fluoxetine (Prozac), 40 MG PO HS Fluoxetine Hcl (Prozac), 20 MG PO HS Fluticasone Propionate (Nasal) (Flonase Allergy Relief Ch), 2 SPRAYS ROSARIO DAILY Loratadine (Claritin), 10 MG PO DAILY Magnesium Oxide (Mag-Ox), 400 MG PO QAM Montelukast Sodium (Singulair), 10 MG PO QAM Nutritional Supplements (Boost Breeze), 1 EA PO BIDM Pantoprazole (Protonix), 40 MG PO BID Pentosan Polysulfate Sodium (Elmiron), 300 MG PO BID Valacyclovir (Valtrex), 500 MG PO DAILY Scheduled PRN Baclofen (Lioresal), 10 MG PO TID PRN for Hiccups Benzocaine (Dental) (Hurricaine), 1 APPLN MT Q6H PRN for Mouth Sores Dicyclomine Hcl (Bentyl), 10 MG IM QID PRN for Abdominal Pain Diphenhy/Alum/Mag/Sucralfa (Magic Swizzle - Diphenhy/Alum/Mag/Sucralfa), 1 TSP PO Q4H PRN for Sore Mouth Levalbuterol Tartrate (Levalbuterol Tartrate Hfa), 2 PUFFS INH Q4H PRN for Wheezing Metoclopramide Hcl (Reglan), 10 MG PO Q6H PRN for Nausea-Hiccups Morphine Sulfate (Morphine Sulfate), 2.5 MG PO Q8 PRN for Pain Phenazopyridine HCl (Pyridium), 200 MG PO TID PRN for Bladder pain Physical Exam Vital Signs Date Time Temp Pulse Resp B/P (MAP) Pulse Ox O2 Delivery O2 Flow Rate FiO2 09/28/17 17:10 82 17 123/90 99 09/28/17 15:09 84 12 121/89 97 Room Air 09/28/17 14:05 36.6 92 17 120/82 97 Room Air Physical Exam VITALS: Vitals are noted on the nurse's note and reviewed by myself. Vital signs stable. GENERAL: 37-year-old female, in no acute distress, nondiaphoretic, well- developed well-nourished. SKIN: One area of old ecchymosis noted to the right wrist HEAD: Normocephalic atraumatic. EARS: Tympanostomy tubes in place bilaterally. NOSE: Small amount of dried blood noted to the right septum. No active bleeding. EYES: Conjunctivae without injection, sclerae without icterus. Extraocular movements intact. MOUTH: Mucous membranes moist. No blood in the oral mucosa. No bleeding of the gums noted. Tonsils are not enlarged. Pharynx without erythema or exudate. Uvula midline. Airway patent. Tongue does not deviate. NECK: Supple without nuchal rigidity. HEART: Regular rate and rhythm without murmurs gallops or rubs. LUNGS: Clear to auscultation bilaterally without wheezes, rales or rhonchi. No accessory muscle use. ABDOMEN: Positive bowel sounds x 4.Soft, nontender, without organomegaly. No guarding or rebound tenderness. Gas and stool present in the ostomy. MUSCULOSKELETAL: No muscle atrophy, erythema, or edema noted. Strength 5/5 throughout. NEURO: Patient was alert and oriented to person place and time. Normal sensation to touch. No focal neurological deficits. Medical Decision & Procedures Laboratory Results 09/28/17 14:55 Red Blood Count 5.14, Mean Corpuscular Volume 81.1, Mean Corpuscular Hemoglobin 28.0, Mean Corpuscular Hemoglobin Concent 34.5, Mean Platelet Volume 9.8, Neutrophils (%) (Auto) 56.2, Lymphocytes (%) (Auto) 35.3, Monocytes (%) (Auto) 5.9, Eosinophils (%) (Auto) 2.2, Basophils (%) (Auto) 0.2, Neutrophils # (Auto) 2.56, Lymphocytes # (Auto) 1.61, Monocytes # (Auto) 0.27, Eosinophils # (Auto) 0.10, Basophils # (Auto) 0.01 09/28/17 14:55 Test 09/28/17 14:55 White Blood Count 4.56 K/uL (4.8-10.8) Red Blood Count 5.14 M/uL (4.2-5.4) Hemoglobin 14.4 g/dL (12.0-16.0) Hematocrit 41.7 % (37-47) Mean Corpuscular Volume 81.1 fL (80-100) Mean Corpuscular Hemoglobin 28.0 pg (25-34) Mean Corpuscular Hemoglobin Concent 34.5 g/dl (32-36) Platelet Count 66 K/uL (130-400) Mean Platelet Volume 9.8 fL (7.4-10.4) Neutrophils (%) (Auto) 56.2 % Lymphocytes (%) (Auto) 35.3 % Monocytes (%) (Auto) 5.9 % Eosinophils (%) (Auto) 2.2 % Basophils (%) (Auto) 0.2 % Neutrophils # (Auto) 2.56 K/uL (1.4-6.5) Lymphocytes # (Auto) 1.61 K/uL (1.2-3.4) Monocytes # (Auto) 0.27 K/uL (0.11-0.59) Eosinophils # (Auto) 0.10 K/uL (0-0.5) Basophils # (Auto) 0.01 K/uL (0-0.2) RDW Standard Deviation 46.6 fL (36.4-46.3) RDW Coefficient of Variation 15.7 % (11.5-14.5) Immature Granulocyte % (Auto) 0.2 % Immature Granulocyte # (Auto) 0.01 K/uL (0.00-0.02) Prothrombin Time 10.7 SECONDS (9.0-12.0) Prothromb Time International Ratio 1.0 (0.9-1.1) Anion Gap 7.0 mmol/L (3-11) Est Creatinine Clear Calc Drug Dose 73.3 ml/min Estimated GFR () 89.2 Estimated GFR (Non- 77.0 BUN/Creatinine Ratio 17.1 (10-20) Calcium Level 9.1 mg/dl (8.5-10.1) Medications Administered Medications (Trade) Dose Ordered Sig/Tamar Route Start Time Stop Time Status Last Admin Dose Admin Diphenhydramine HCl (Benadryl Inj) 25 mg NOW STAT IV 09/28/17 14:30 09/28/17 14:32 DC 09/28/17 15:05 25 MG Tramadol HCl (Ultram Tab) 50 mg NOW STAT PO 09/28/17 15:13 09/28/17 15:14 DC 09/28/17 15:44 50 MG Oxymetazoline HCl (Afrin 0.05% Nasal [place]) 1 sprays NOW ONCE NA 09/28/17 16:30 09/28/17 16:31 DC 09/28/17 17:06 1 SPRAYS Mupirocin (Bactroban 2% Oint) 1 appln ONE STAT EXT 09/28/17 16:19 09/28/17 16:20 DC 09/28/17 17:06 1 APPLN ED Course Patient was seen and examined Vital signs including blood pressure were reviewed medications list was verified with patient Labs were obtained, and a saline lock was established The patient was offered Compazine and Benadryl for her headache, which she refused. She was ordered Ultram. The case was discussed with Dr. Arredondo from hematology. It was also discussed with my supervising physician who evaluated the patient The patient was reassessed and resting comfortably. We discussed the results of her workup. She voiced understanding. I reviewed discharge instructions the patient. They voiced understanding and had no further questions. Medical Decision Differential diagnosis: Epistaxis, thrombocytopenia, anemia, sinusitis, meningitis, migraine, drug-seeking behavior This patient is a 37-year-old female that presents to the emergency department with a main complaint of a nosebleed. She was concerned about her platelet count with her history of thrombocytopenia. She was also complaining of a migraine headache. On exam, she was nontoxic in appearance. There is no active bleeding in the nares bilaterally. No nuchal rigidity. I do not suspect meningitis. The patient's platelets are 66,000. This was discussed with Dr. Arredondo. She was comfortable with the patient being discharged home. The patient was recommended that she use a humidifier and Afrin if she has any further bleeding. She will also use Bactroban in the nose twice daily. She was encouraged to follow-up with her primary care physician for a repeat CBC this week. She will return to the emergency department with any worsening symptoms, particularly any uncontrolled bleeding This chart was completed in part utilizing [employer] Speech Voice Recognition software. Attempts were made to minimize the grammatical errors, random word insertions, pronoun errors and incomplete sentences. Any formal questions or concerns about the content, text or information contained within the body of this dictation should be directly addressed to the provider for clarification. Medication Reconcilliation Current Medication List: was personally reviewed by me Blood Pressure Screening Patient's blood pressure: Normal blood pressure Impression Primary Impression: Epistaxis Additional Impression: Thrombocytopenia Departure Information Dispostion Home / Self-Care Condition GOOD Referrals Rock Cabrera D.O. (PCP) Marivel Arredondo MD Patient Instructions My [facility] Additional Instructions You have been evaluated in the emergency department for a nosebleed. Your platelet count is stable at 66. This was discussed with your disaster recovery manager. Please continue Augmentin as prescribed Please apply Bactroban ointment gently to each nostril twice daily If there is further bleeding, please below the nose, immediately use 2 sprays of Afrin in each nostril and applied a nasal clamp for half an hour. Sit upright during this time. Do not hesitate to return to the emergency department with any new or worsening symptoms; especially, signs of uncontrolled bleeding Work Instructions Return To Work: 1 day Problem Qualifiers
[2017-09-28] MEDS ORDERED: MORP10SO PO (15:35)
[2017-09-28] MEDS ORDERED: NUTR-1197 PO (15:35)
[2017-09-28] MEDS ORDERED: [UNRECOGNIZED DRUG - CODE] IM (15:35)
[2017-09-28] MEDS ORDERED: MAGN400T6 PO (15:35)
[2017-09-28] MEDS ORDERED: BENZ20GE MT (15:36)
[2017-09-28] MEDS ORDERED: MUPIROCIN 2% OINT 22 GM TUBE EXT STA (16:19)
[2017-09-28] MEDS ORDERED: OXYMETAZOLINE HCL 0.05% NA SPR 15 ML BTL ONE (16:30)
--- NOTE | 2017-09-28 16:51 | EMERGENCY ROOM VISIT NOTE ---
ED Visit Note First contact with patient: 14:19 Staff note: I have reviewed the Patients chart and have discussed this case with my PA. I generally agree with the ED note and findings.
[2017-09-28] MEDS ORDERED: CLR10 PO (16:58)
[2017-09-28] MEDS ORDERED: FLUO40CA8 PO (16:58)
[2017-09-28 17:10] VITALS: BP 123/90; PULSE 82; O2SAT 99
[2017-09-28] MEDS ORDERED: FLUT1SPR12 NAE (18:48)
[2017-09-28] MEDS ORDERED: BACL1TAB PO (18:52)
[2017-09-28] MEDS ORDERED: PANT1TAB3 PO (20:26)
[2017-09-28] MEDS ORDERED: FLUO20CA34 PO (20:26)
[2017-09-28] MEDS ORDERED: LEVA45AE INH (20:30)
[2017-09-28] MEDS ORDERED: PHEN-876 PO (21:23)
[2017-09-28] MEDS ORDERED: METO-157 PO (22:26)
[2017-09-28] MEDS ORDERED: MAGIC1 PO (23:12)
== END 2017-09-28 17:11 | disposition home or self-care (01) ==
LOC: C.EDB 13:59 → C.EDC 17:11
DX: R04.0 Epistaxis (principal); D69.6 Thrombocytopenia, unspecified; F41.9 Anxiety disorder, unspecified; K52.9 Noninfective gastroenteritis and colitis, unspecified; F32.9 Major depressive disorder, single episode, unspecified; N80.9 Endometriosis, unspecified; M79.7 Fibromyalgia; I95.9 Hypotension, unspecified; G43.909 Migraine, unspecified, not intractable, without status migrainosus; I73.00 Raynaud's syndrome without gangrene; Z83.3 Family history of diabetes mellitus; Z82.49 Family history of ischemic heart disease and other diseases of the circulatory system; Z80.9 Family history of malignant neoplasm, unspecified; Z83.79 Family history of other diseases of the digestive system; Z79.899 Other long term (current) drug therapy

== ENCOUNTER 2017-10-05 10:28 | Emergency (ER) | payer BC, OTHER ==
[~2017-10-05] VITALS: Ht 172.7 cm; Wt 56.6 kg
[~2017-10-05 10:28] MED LIST changes: -ACET-1047 PO; +BACL1TAB PO; +BENZ20GE MT; -Boost Nutritional Drink PO; +CLR10 PO; +FLUO20CA34 PO; +FLUO40CA8 PO; +FLUT1SPR12 NAE; +LEVA45AE INH; +MAGIC1 PO; +MAGN400T6 PO; -MBXC PO; +METO-157 PO; -MGNO400 PO; +MORP10SO PO; +NUTR-1197 PO; -ORJ MT; +PANT1TAB3 PO; +PHEN-876 PO; -PROC1TAB5 PO; -RXNS10 PO
[2017-10-05 10:32] VITALS: TEMP 36.5; Ht 172.7 cm; Wt 56.6 kg
[2017-10-05] MEDS ORDERED: DICYCLOMINE HCL 10 MG/ML 2 ML AMP IM STA (10:38)
--- NOTE | 2017-10-05 10:40 | EMERGENCY ROOM VISIT NOTE ---
History Report prepared by Carlo: Kal Rivera Under the Supervision of: Dr. Kelechi Arguelles M.D. First contact with patient: 10:34 Chief Complaint: ABDOMINAL PAIN Stated Complaint: STOMACH PAIN,RASH BLOOD IN STOOL,BLADDER PAIN History of Present Illness The patient is a 37 year old female with thrombocytopenia who presents to the Emergency Room with complaints of persistent abdominal pain that started last night. She says that her platelets have been low recently and her white count has been dropping as well. The patient states that she was up all night due to "bladder" pain, and this morning the area around her stoma started to hurt a lot. She says that she is getting a rash around the stoma that is very itchy. She adds that she is a bit nauseous. The patient notes that she has had 2 episodes of blood in her stool, as well as 3 nose bleeds. She states that she sees Dr. Miller. She says that she was started on Levaquin yesterday for a sinus infection. Source of History: patient Onset: Last night Position: abdomen Quality: other (bladder pain) Timing: other (persistent) Associated Symptoms: + nausea, + hematochezia, + rash (around stoma that is itchy) Note: Associated symptoms: 3 nose bleeds. Review of Systems See HPI for pertinent positives & negatives. A total of 10 systems reviewed and were otherwise negative. Past Medical & Surgical Medical Problems: (1) Anxiety (2) Colon dysplasia (3) Crohn's colitis (4) Depression (5) Endometriosis (6) Fibromyalgia (7) History of iron deficiency anemia (8) Hypotension (9) Ileostomy in place (10) Interstitial cystitis (11) Migraine (12) Raynauds disease (13) SBO (small bowel obstruction) (14) Thrombocytopenia Surgical Problems: (1) H/O colonoscopy (2) H/O esophagogastroduodenoscopy (3) H/O laparoscopy (4) H/O total colectomy (5) S/P appendectomy (6) S/P hysterectomy Family History Diabetes mellitus FH: depression FH: heart disease FHx: cancer FHx: gallbladder disease Hypertension Social History Smoking Status: Never Smoker Alcohol Use: occasionally Drug Use: none Marital Status: Housing Status: lives with significant other Occupation Status: disabled Current/Historical Medications Scheduled Alprazolam (Xanax), 0.5 MG PO QAM Alprazolam (Xanax), 1 MG PO HS Budesonide (Entocort Ec), 9 MG PO DAILY Fluoxetine (Prozac), 40 MG PO HS Fluoxetine Hcl (Prozac), 20 MG PO HS Fluticasone Propionate (Nasal) (Flonase Allergy Relief Ch), 2 SPRAYS ROSARIO DAILY Levofloxacin (Levaquin), Unknown Dose PO DAILY Loratadine (Claritin), 10 MG PO DAILY Magnesium Oxide (Mag-Ox), 400 MG PO QAM Montelukast Sodium (Singulair), 10 MG PO QAM Nutritional Supplements (Boost Breeze), 1 EA PO BIDM Pantoprazole (Protonix), 40 MG PO BID Pentosan Polysulfate Sodium (Elmiron), 300 MG PO BID Valacyclovir (Valtrex), 500 MG PO DAILY Scheduled PRN Baclofen (Lioresal), 10 MG PO TID PRN for Hiccups Benzocaine (Dental) (Hurricaine), 1 APPLN MT Q6H PRN for Mouth Sores Dicyclomine Hcl (Bentyl), 10 MG IM QID PRN for Abdominal Pain Diphenhy/Alum/Mag/Sucralfa (Magic Swizzle - Diphenhy/Alum/Mag/Sucralfa), 1 TSP PO Q4H PRN for Sore Mouth Levalbuterol Tartrate (Levalbuterol Tartrate Hfa), 2 PUFFS INH Q4H PRN for Wheezing Metoclopramide Hcl (Reglan), 10 MG PO Q6H PRN for Nausea-Hiccups Morphine Sulfate (Morphine Sulfate), 2.5 MG PO Q8 PRN for Pain Phenazopyridine HCl (Pyridium), 200 MG PO TID PRN for Bladder pain Allergies Coded Allergies: Clarithromycin (Verified Allergy, Severe, breathing problems, 10/05/17) Hydromorphone (Verified Allergy, Intermediate, RASH, 10/05/17) pt sasy she is allergic Ondansetron (Verified Allergy, Intermediate, itching, 10/05/17) Peanut (Verified Allergy, Intermediate, Rash and itchiness, 10/05/17) Hydroxyzine (Verified Allergy, Mild, itching, 10/05/17) Adhesives (Verified Allergy, Unknown, itching, swelling, 10/05/17) Albuterol (Verified Allergy, Unknown, rash, 10/05/17) BEE STING (Unverified Allergy, Unknown, anaphylaxis, 10/05/17) Ketorolac Tromethamine (Unverified Allergy, Unknown, unknown, 10/05/17) Latex (Verified Allergy, Unknown, itching, swelling, 10/05/17) Oxycodone (Verified Allergy, Unknown, itching, 10/05/17) Barium Sulfate (Verified Adverse Reaction, Unknown, diarrhea, 10/05/17) Lobster (Verified Adverse Reaction, Unknown, nausea, diarrhea, 10/05/17) Pregabalin (Verified Adverse Reaction, Unknown, delusions, 10/05/17) Uncoded Allergies: SPLENDA (Allergy, Unknown, Nausea/Vomiting, 09/26/16) Physical Exam Vital Signs Date Time Temp Pulse Resp B/P (MAP) Pulse Ox O2 Delivery O2 Flow Rate FiO2 10/05/17 10:32 36.5 80 16 114/80 99 Room Air Physical Exam GENERAL: Patient is a healthy-appearing well-nourished 37 year old female. HEAD: Normocephalic atraumatic EYES: Ocular movements intact pupils equal and react to light OROPHARYNX mucous membranes are moist no exudates present no erythema or edema present NECK: Supple no nuchal rigidity CHEST: Good equal expansion LUNGS: Clear and equal to auscultation CARDIAC: Normal S1 and S2 ABDOMEN: Soft nontender no guarding. Ostomy in place. BACK: No CVA tenderness EXTREMITIES: No pain upon palpation normal muscle strength in all groups no clubbing cyanosis or edema NEURO: Patient is following commands and answering questions appropriately. Alert and oriented x3 Cranial Nerves 2-12 grossly intact Medical Decision & Procedures ER Provider Diagnostic Interpretation: X-ray results as stated below per interpretation by me and the radiologist: CHEST AND ABDOMEN 2 VIEWS HISTORY: Generalized abdominal pain. COMPARISON: Chest and abdominal series 09/01/2017. FINDINGS: The lungs are clear. The heart is normal in size. Right lower quadrant ostomy site is again noted. No dilated loops of bowel to suggest an obstruction. No renal or ureteral calculi. No pneumoperitoneum. No pneumatosis. Stable mild splenomegaly. IMPRESSION: No acute cardiopulmonary process. No evidence for bowel obstruction. Stable mild splenomegaly. Electronically signed by: Pancho Maria M.D. 10/05/2017 11:38 AM Dictated Date/Time: 10/05/2017 11:36 AM Laboratory Results 10/05/17 10:55 Red Blood Count 4.91, Mean Corpuscular Volume 81.9, Mean Corpuscular Hemoglobin 27.9, Mean Corpuscular Hemoglobin Concent 34.1, Mean Platelet Volume 9.3 10/05/17 10:55 Test 10/05/17 10:55 10/05/17 11:05 White Blood Count 4.03 K/uL (4.8-10.8) Red Blood Count 4.91 M/uL (4.2-5.4) Hemoglobin 13.7 g/dL (12.0-16.0) Hematocrit 40.2 % (37-47) Mean Corpuscular Volume 81.9 fL (80-100) Mean Corpuscular Hemoglobin 27.9 pg (25-34) Mean Corpuscular Hemoglobin Concent 34.1 g/dl (32-36) Platelet Count 68 K/uL (130-400) Mean Platelet Volume 9.3 fL (7.4-10.4) RDW Standard Deviation 45.7 fL (36.4-46.3) RDW Coefficient of Variation 15.4 % (11.5-14.5) Neutrophils % (Manual) 38.3 % Lymphocytes % (Manual) 35.7 % Variant Lymphocytes % (manual) 17.0 % Monocytes % (Manual) 4.5 % Eosinophils % (Manual) 2.7 % Basophils % (Manual) 1.8 % Neutrophils # (Manual) 1.54 K/uL (1.4-6.5) Total Absolute Neutrophils 1.54 K/uL (1.4-6.5) Lymphocytes # (Manual) 1.44 K/uL (1.2-3.4) Absolute Variant Lymphocytes 0.69 K/uL Total Absolute Lymphocytes 2.12 K/uL (1.2-3.4) Monocytes # (Manual) 0.18 K/uL (0.11-0.59) Eosinophils # (Manual) 0.11 K/uL (0-0.5) Basophils # (Manual) 0.07 K/uL (0-0.2) Platelet Estimate DECREASED Ovalocytes 1+ Anion Gap 7.0 mmol/L (3-11) Est Creatinine Clear Calc Drug Dose 71.0 ml/min Estimated GFR () 87.0 Estimated GFR (Non- 75.0 BUN/Creatinine Ratio 16.6 (10-20) Calcium Level 9.1 mg/dl (8.5-10.1) Total Bilirubin 0.8 mg/dl (0.2-1) Direct Bilirubin 0.2 mg/dl (0-0.2) Aspartate Amino Transf (AST/SGOT) 34 U/L (15-37) Alanine Aminotransferase (ALT/SGPT) 61 U/L (12-78) Alkaline Phosphatase 101 U/L (45-117) Total Protein 7.7 gm/dl (6.4-8.2) Albumin 4.3 gm/dl (3.4-5.0) Lipase 327 U/L (73-393) Urine Color ORANGE Urine Appearance CLEAR (CLEAR) Urine pH (4.5-7.5) Urine Specific [place] 1.020 (1.000-1.030) Urine Protein NEG (NEG) Urine Glucose (UA) (NEG) Urine Ketones (NEG) Urine Occult Blood (NEG) Urine Nitrite (NEG) Urine Bilirubin (NEG) Urine Urobilinogen (NEG) Urine Leukocyte Esterase (NEG) Urine RBC 10-30 /hpf (0-4) Urine WBC >30 /hpf (0-5) Urine Epithelial Cells 0-5 /lpf (0-5) Urine Bacteria 2+ (NEG) Urine Hyaline Casts 1-5 /lpf (0-5) Labs reviewed by ED physician. Medications Administered Medications (Trade) Dose Ordered Sig/Tamar Route Start Time Stop Time Status Last Admin Dose Admin Dicyclomine HCl (Bentyl Inj) 20 mg NOW STAT IM 10/05/17 10:38 10/05/17 10:40 DC 10/05/17 10:47 20 MG Diphenhydramine HCl (Benadryl Inj) 50 mg NOW STAT IV 10/05/17 10:42 10/05/17 10:44 DC 10/05/17 11:31 50 MG Hydrocortisone (Hydrocortisone 1% Crm) 1 appln NOW STAT EXT 10/05/17 10:42 10/05/17 10:44 DC 10/05/17 11:30 1 APPLN Potassium Chloride (Tracy Ciel Elix) 40 meq NOW STAT PO 10/05/17 11:33 10/05/17 11:35 DC 10/05/17 11:43 40 MEQ ED Course 1035: Past medical records reviewed. The patient was evaluated in room C4. A complete history and physical examination was performed. 1038: Ordered Bentyl Inj 20 mg IM. 1042: Ordered Hydrocortisone 1% Crm 1 appln EXT, Benadryl Inj 50 mg IV. 1133: Ordered Tracy Ciel Elix 40 meq PO. 2346: Upon reexamination the patient is resting comfortably. I discussed results and treatment plan with the patient. She verbalizes agreement and understanding. The patient is ready for discharge. Medical Decision Differential diagnosis: Etiologies such as appendicitis, diverticulitis, PUD, biliary pathology, UTI, pancreatitis, obstruction, mesenteric ischemia, aortic pathology, infections, inflammatory bowel disease, renal colic, as well as others were entertained. This is a 37-year-old female who presents emergency department complaining of diffuse abdominal pain. The patient is also complaining rash around her ostomy site. It was explained to the patient in the emergency department that she has been moved to the no narcotics list this means that the patient is not going to receive any narcotics in the emergency department. The patient could not believe this and questioned me about it repeatedly. Therefore I read from her record straight to the patient and her : "spoke in depth about the patient's condition specifically, patient should NOT be on narcotics as it decreases her bowel motility - this is a recommendation that I am making as well as the GI specialist follow-up made for her colorectal surgeon, Dr. Valladares at [place], on September 16 at 1:45PM" The patient's also agreed and stated, "this should not be a surprise Ozey." It was explained to the patient as she does not appear to be in any acute distress she would receive a shot of Bentyl. The patient explained she has Bentyl at home I asked her if she had taken it this morning to which she replied no. Laboratory work was obtained, I will note that the patient's white blood cell count is x-ray higher than it normally is and in addition her platelet count is stable. Her hemoglobin count is also stable and is also actually higher than it normally is. Her x-rays do not show any evidence of obstruction. The patient keeps trying to come up with more complaints so that I will reevaluate her further offer her pain medications which I am not doing. The patient was offered Tylenol in the emergency department which she refused. I will also note that the patient was able to keep her potassium down. I reviewed all the patient's laboratory work with her the patient is refusing to be discharged she is asking to speak with the patient advocate therefore case management sent in to speak with the patient. In addition the patient is also asking that I speak with her high school foreign language tutor. Dr. Kincaid who is on for Dr. reynolds reviewed laboratory work as well as imaging studies and noted that the patient is taking in by mouth potassium in as such can be safely discharged for follow-up with her colorectal surgeon. In addition we both noted that narcotics will harm this patient's GI system. I am recommending this patient to the no narcotics list in the emergency department. Medication Reconcilliation Current Medication List: was personally reviewed by me Blood Pressure Screening Patient's blood pressure: Normal blood pressure Impression Primary Impression: Abdominal pain Additional Impressions: Encounter for narcotic contract discussion Narcotic habituation, continuous Scribe Attestation The scribe's documentation has been prepared under my direction and personally reviewed by me in its entirety. I confirm that the note above accurately reflects all work, treatment, procedures, and medical decision making performed by me. Departure Information Dispostion Home / Self-Care Referrals Rock Cabrera D.O. (PCP) Upendra. Sy M.D. Forms Call Back Authorization, HOME CARE DOCUMENTATION FORM, IMPORTANT VISIT INFORMATION, School Instructions, Work Instructions Patient Instructions My [facility] Additional Instructions Need follow up with gastroenterology/ Colorectal surgery Follow up with Dr Castillo's office You have been examined and treated today on an emergency basis only. This is not a substitute for, or an effort to provide, complete comprehensive medical care. It is impossible to recognize and treat all injuries or illnesses in a single emergency department visit. It is therefore important that you follow up closely with Dr Cabrera. Call as soon as possible for an appointment. Thank you for your time and consideration. I look forward to speaking with you again soon. Please don't hesitate to call us if you have any questions. Problem Qualifiers Primary Impression: Abdominal pain Abdominal location: generalized Qualified Codes: R10.84 - Generalized abdominal pain
[2017-10-05] MEDS ORDERED: HYDROCORTISONE 1% CR 30 GM TUBE EXT STA (10:42)
[2017-10-05] MEDS ORDERED: DiphenhydrAMINE HCL 50 MG/ML VIAL IV STA (10:42)
[2017-10-05 11:09] LABS: HEMATOCRIT 40.2 % (37-47); HEMOGLOBIN 13.7 g/dL (12.0-16.0); MEAN CELL VOLUME 81.9 fL (80-100); MEAN CORPUSCULAR HEMOGLOBIN 27.9 pg (25-34); MEAN CORPUSCULAR HGB CONC 34.1 g/dl (32-36); RED CELL DISTRIBUTION WIDTH CV 15.4 % (11.5-14.5); RED CELL DISTRIBUTION WIDTH SD 45.7 fL (36.4-46.3); WHITE BLOOD COUNT 4.03 K/uL (4.8-10.8)
[2017-10-05 11:32] LABS: ALBUMIN 4.3 gm/dl (3.4-5.0); CALCIUM 9.1 mg/dl (8.5-10.1); CREATININE 0.96 mg/dl (0.60-1.20); POTASSIUM 3.4 mmol/L (3.5-5.1)
[2017-10-05 11:33] LABS: MEAN PLATELET VOLUME 9.3 fL (7.4-10.4); PLATELET COUNT 68 K/uL (130-400)
[2017-10-05] MEDS ORDERED: POTASSIUM CHLORIDE 20 MEQ/15 ML UDC PO STA (11:33)
[2017-10-05 11:35] LABS: TOTAL PROTEIN 7.7 gm/dl (6.4-8.2)
--- NOTE | 2017-10-05 11:39 | DIAGNOSTIC IMAGING REPORT ---
CHEST AND ABDOMEN 2 VIEWS HISTORY: Generalized abdominal pain. COMPARISON: Chest and abdominal series 09/01/2017. FINDINGS: The lungs are clear. The heart is normal in size. Right lower quadrant ostomy site is again noted. No dilated loops of bowel to suggest an obstruction. No renal or ureteral calculi. No pneumoperitoneum. No pneumatosis. Stable mild splenomegaly. IMPRESSION: No acute cardiopulmonary process. No evidence for bowel obstruction. Stable mild splenomegaly. Electronically signed by: Pancho Maria M.D. 10/05/2017 11:38 AM Dictated Date/Time: 10/05/2017 11:36 AM
[2017-10-05] MEDS ORDERED: ALPR0.5T PO (11:58)
[2017-10-05] MEDS ORDERED: LEVO1TAB34 PO (11:58)
[2017-10-05 12:33] VITALS: BP 140/101; PULSE 95; O2SAT 99
== END 2017-10-05 12:35 | disposition home or self-care (01) ==
LOC: C.EDB 10:30 → C.EDC 12:35
DX: R10.84 Generalized abdominal pain (principal); F11.20 Opioid dependence, uncomplicated; D69.6 Thrombocytopenia, unspecified; Z93.2 Ileostomy status; F41.9 Anxiety disorder, unspecified; F32.9 Major depressive disorder, single episode, unspecified; M79.7 Fibromyalgia; I73.00 Raynaud's syndrome without gangrene; Z90.710 Acquired absence of both cervix and uterus; Z90.49 Acquired absence of other specified parts of digestive tract; Z83.3 Family history of diabetes mellitus; Z81.8 Family history of other mental and behavioral disorders; Z80.9 Family history of malignant neoplasm, unspecified; Z82.49 Family history of ischemic heart disease and other diseases of the circulatory system; Z79.899 Other long term (current) drug therapy; Z88.1 Allergy status to other antibiotic agents; Z88.5 Allergy status to narcotic agent; Z91.010 Allergy to peanuts; Z91.030 Bee allergy status; Z91.018 Allergy to other foods; Z88.8 Allergy status to other drugs, medicaments and biological substances

== ENCOUNTER 2017-11-13 13:23 | Emergency (ER) | payer BC, OTHER ==
[~2017-11-13] VITALS: Ht 172.7 cm; Wt 60.0 kg
[~2017-11-13 13:23] MED LIST changes: +ALPR0.5T PO; -DFL100 PO; +LEVO1TAB34 PO
[2017-11-13 13:25] VITALS: TEMP 36.9; Ht 172.7 cm; Wt 60.0 kg
--- NOTE | 2017-11-13 14:25 | EMERGENCY ROOM VISIT NOTE ---
History First contact with patient: 13:34 Chief Complaint: STROKE SYMPTOMS Stated Complaint: POSSIBLE STROKE, TIA, NUMBNESS IN MOUTH/FACE History of Present Illness The patient is a 37 year old female who presents to the Emergency Room with complaints of numbness on the right lower cheek and on the right side of her tongue that has been going on since yesterday. The patient was seeing a physician in [facility] receiving a cortisone injection in her left upper back when she had a syncopal episode. After she came to, she noticed the sensation. She denies any confusion. No slurred speech noted by the patient's mother. No focal weakness. She has had a mild headache. Patient contacted her neurologist today who told her to come here for evaluation. She denies any pain in her chest. No difficulty breathing. Review of Systems 10 system review performed and negative unless noted in HPI or below Past Medical/Surgical History Medical Problems: (1) Anxiety (2) Colon dysplasia (3) Crohn's colitis (4) Depression (5) Endometriosis (6) Fibromyalgia (7) History of iron deficiency anemia (8) Hypotension (9) Ileostomy in place (10) Interstitial cystitis (11) Migraine (12) Raynauds disease (13) SBO (small bowel obstruction) (14) Thrombocytopenia Surgical Problems: (1) H/O colonoscopy (2) H/O esophagogastroduodenoscopy (3) H/O laparoscopy (4) H/O total colectomy (5) S/P appendectomy (6) S/P hysterectomy Family History Diabetes mellitus FH: depression FH: heart disease FHx: cancer FHx: gallbladder disease Hypertension Social History Smoking Status: Never Smoker Alcohol Use: occasionally Drug Use: none Marital Status: Housing Status: lives with significant other Occupation Status: disabled Current/Historical Medications Scheduled Alprazolam (Xanax), 0.5 MG PO QAM Alprazolam (Xanax), 1 MG PO HS Budesonide (Entocort Ec), 9 MG PO DAILY Ciprofloxacin Hcl (Cipro), 500 MG PO BID Fluoxetine (Prozac), 40 MG PO HS Fluoxetine Hcl (Prozac), 20 MG PO HS Fluticasone Propionate (Nasal) (Flonase Allergy Relief Ch), 2 SPRAYS ROSARIO DAILY Loratadine (Claritin), 10 MG PO DAILY Magnesium Oxide (Mag-Ox), 400 MG PO QAM Montelukast Sodium (Singulair), 10 MG PO QAM Nutritional Supplements (Boost Breeze), 1 EA PO BIDM Pantoprazole (Protonix), 40 MG PO BID Pentosan Polysulfate Sodium (Elmiron), 300 MG PO BID Valacyclovir (Valtrex), 500 MG PO DAILY Scheduled PRN Baclofen (Lioresal), 10 MG PO TID PRN for Hiccups Benzocaine (Dental) (Hurricaine), 1 APPLN MT Q6H PRN for Mouth Sores Dicyclomine Hcl (Bentyl), 10 MG IM QID PRN for Abdominal Pain Diphenhy/Alum/Mag/Sucralfa (Magic Swizzle - Diphenhy/Alum/Mag/Sucralfa), 1 TSP PO Q4H PRN for Sore Mouth Levalbuterol Tartrate (Levalbuterol Tartrate Hfa), 2 PUFFS INH Q4H PRN for Wheezing Metoclopramide Hcl (Reglan), 10 MG PO Q6H PRN for Nausea-Hiccups Morphine Sulfate (Morphine Sulfate), 2.5 MG PO Q8 PRN for Pain Phenazopyridine HCl (Pyridium), 200 MG PO TID PRN for Bladder pain Physical Exam Vital Signs Date Time Temp Pulse Resp B/P (MAP) Pulse Ox O2 Delivery O2 Flow Rate FiO2 11/13/17 15:16 68 18 115/76 100 Room Air 11/13/17 14:24 78 18 116/74 98 Room Air 11/13/17 14:16 76 11/13/17 13:25 36.9 88 16 127/84 96 Room Air Physical Exam VITALS: Vitals are noted on the nurse's note and reviewed by myself. Vital signs stable. GENERAL: 37-year-old female, in no acute distress, nondiaphoretic, well- developed well-nourished. SKIN: The skin was without rashes, erythema, edema, or bruising. HEAD: Normocephalic atraumatic. EYES: Pupils equal round and reactive to light and accommodation. Conjunctivae without injection, sclerae without icterus. Extraocular movements intact. MOUTH: Mucous membranes moist. Tonsils are not enlarged. Pharynx without erythema or exudate. Uvula midline. Airway patent. Tongue does not deviate. NECK: Supple without nuchal rigidity. No JVD. HEART: Regular rate and rhythm without murmurs gallops or rubs. LUNGS: Clear to auscultation bilaterally without wheezes, rales or rhonchi. No accessory muscle use. ABDOMEN: Positive bowel sounds x 4.Soft, nontender, without organomegaly. No guarding or rebound tenderness. MUSCULOSKELETAL: No muscle atrophy, erythema, or edema note Strength 5/5 throughout. NEURO: Patient was alert and oriented to person place and time. Cranial nerves grossly intact. Normal sensation to sharp and dull touch throughout. Negative Romberg. Cerebellar function intact. No focal neurological deficits. Medical Decision & Procedures ER Provider Diagnostic Interpretation: MRI brain combo IMPRESSION: 1. Normal MRI of the brain. 2. Bilateral mastoid effusions which are likely chronic. Electronically signed by: Solomon Manriquez M.D. 11/13/2017 4:55 PM Dictated Date/Time: 11/13/2017 4:52 PM The status of this report is Signed. Draft = Not yet reviewed or approved by Radiologist. Signed = Reviewed and approved by Radiologist. <AttendingPhy></AttendingPhy> <FamilyPhy>Rock Cabrera D.O.</FamilyPhy> < PrimaryPhy>Rock Cabrera D.ODoretha</PrimaryPhy> <UnitNumber>[id number]</ UnitNumber> <VisitNumber>[id number]</VisitNumber> Chest x-ray IMPRESSION: AP portable study. Left upper lung zone opacities, possibly representing summation artifact. No evidence of lobar consolidation, no evidence of failure Electronically signed by: Jamie Ortiz M.D. 11/13/2017 2:27 PM Dictated Date/Time: 11/13/2017 2:25 PM The status of this report is Signed. Draft = Not yet reviewed or approved by Radiologist. Signed = Reviewed and approved by Radiologist. Head CT without contrast IMPRESSION: 1. No acute intracranial abnormality. 2. Bilateral mastoid effusions, right larger than left. Electronically signed by: Nikolas Cervantes M.D. 11/13/2017 2:42 PM Dictated Date/Time: 11/13/2017 2:41 PM The status of this report is Signed. Draft = Not yet reviewed or approved by Radiologist. Signed = Reviewed and approved by Radiologist. <AttendingPhy></AttendingPhy> <FamilyPhy>Rock Cabrera D.O.</FamilyPhy> < PrimaryPhy>Rock Cabrera D.O.</PrimaryPhy> <UnitNumber>[id number]</ UnitNumber> <VisitNumber>[id number]</VisitNumber> Laboratory Results 11/13/17 14:23 Red Blood Count 5.28, Mean Corpuscular Volume 83.0, Mean Corpuscular Hemoglobin 27.5, Mean Corpuscular Hemoglobin Concent 33.1, Mean Platelet Volume 9.7, Neutrophils (%) (Auto) 56.4, Lymphocytes (%) (Auto) 33.1, Monocytes (%) (Auto) 7.4, Eosinophils (%) (Auto) 3.1, Basophils (%) (Auto) 0.0, Neutrophils # (Auto) 1.45, Lymphocytes # (Auto) 0.85, Monocytes # (Auto) 0.19, Eosinophils # (Auto) 0.08, Basophils # (Auto) 0.00 11/13/17 14:23 Test 11/13/17 14:23 11/13/17 18:00 White Blood Count 2.57 K/uL (4.8-10.8) Red Blood Count 5.28 M/uL (4.2-5.4) Hemoglobin 14.5 g/dL (12.0-16.0) Hematocrit 43.8 % (37-47) Mean Corpuscular Volume 83.0 fL (80-100) Mean Corpuscular Hemoglobin 27.5 pg (25-34) Mean Corpuscular Hemoglobin Concent 33.1 g/dl (32-36) Platelet Count 60 K/uL (130-400) Mean Platelet Volume 9.7 fL (7.4-10.4) Neutrophils (%) (Auto) 56.4 % Lymphocytes (%) (Auto) 33.1 % Monocytes (%) (Auto) 7.4 % Eosinophils (%) (Auto) 3.1 % Basophils (%) (Auto) 0.0 % Neutrophils # (Auto) 1.45 K/uL (1.4-6.5) Lymphocytes # (Auto) 0.85 K/uL (1.2-3.4) Monocytes # (Auto) 0.19 K/uL (0.11-0.59) Eosinophils # (Auto) 0.08 K/uL (0-0.5) Basophils # (Auto) 0.00 K/uL (0-0.2) RDW Standard Deviation 43.7 fL (36.4-46.3) RDW Coefficient of Variation 14.4 % (11.5-14.5) Immature Granulocyte % (Auto) 0.0 % Immature Granulocyte # (Auto) 0.00 K/uL (0.00-0.02) Platelet Estimate DECREASED Anion Gap 6.0 mmol/L (3-11) Est Creatinine Clear Calc Drug Dose 77.7 ml/min Estimated GFR () 90.4 Estimated GFR (Non- 78.0 BUN/Creatinine Ratio 12.0 (10-20) Calcium Level 9.4 mg/dl (8.5-10.1) Total Bilirubin 0.9 mg/dl (0.2-1) Aspartate Amino Transf (AST/SGOT) 40 U/L (15-37) Alanine Aminotransferase (ALT/SGPT) 77 U/L (12-78) Alkaline Phosphatase 116 U/L (45-117) Total Protein 7.8 gm/dl (6.4-8.2) Albumin 4.5 gm/dl (3.4-5.0) Globulin 3.3 gm/dl (2.5-4.0) Albumin/Globulin Ratio 1.4 (0.9-2) Thyroid Stimulating Hormone (TSH) 0.671 uIu/ml (0.300-4.500) Urine Test NEG (NEG) ED Course Patient was seen and examined Vital signs including blood pressure were reviewed medications list was verified with patient Labs were obtained, and a saline lock was established Imaging was performed and reviewed The case was discussed with my supervising physician and subsequently Dr. Morgan An MRI was ordered and reviewed On reassessment, the patient was more comfortable. We thoroughly reviewed her results. She voiced understanding, was comfortable being discharged home. I reviewed discharge instructions the patient. They voiced understanding and had no further questions. Medical Decision Differential diagnosis: TIA, anxiety, CVA, multiple sclerosis, Guyon Mathew, trigeminal neuralgia This patient is a 37-year-old female presents to the emergency department complaining of right sided facial numbness and right-sided tongue numbness for approximately 1 day. A thorough neurologic exam was performed. I did not find any neurologic deficits. Her sensation was intact throughout. Her labs revealed pancytopenia, which is not new. There was no rash such as petechiae. No signs of bleeding. I ordered a CT scan, which did not show any acute abnormalities. The case was discussed with my supervising physician. I then discussed the case with the patient's neurologist, Dr. Morgan. To further evaluate the patient's symptoms, I ordered an MRI of the brain. This was negative for acute findings. She does have small mastoid effusions, which are likely chronic in nature. the etiology of her symptoms are unclear. I do believe anxiety is playing a role in her symptoms. The patient was given a short course of muscle relaxants for her back pain. She will follow-up with her primary care physician in addition to her neurologist. Patient was comfortable with this plan, and agrees to return with worsening symptoms This chart was completed in part utilizing [employer] Voice Recognition software. Attempts were made to minimize the grammatical errors, random word insertions, pronoun errors and incomplete sentences. Any formal questions or concerns about the content, text or information contained within the body of this dictation should be directly addressed to the provider for clarification. Medication Reconcilliation Current Medication List: was personally reviewed by me Blood Pressure Screening Patient's blood pressure: Normal blood pressure Consults Consulting Physician: dr morgan Impression Primary Impression: Neurological symptoms Departure Information Referrals Rock Cabrera D.O. (PCP) Patient Instructions My [facility]
--- NOTE | 2017-11-13 14:28 | DIAGNOSTIC IMAGING REPORT ---
CHEST ONE VIEW PORTABLE CLINICAL HISTORY: numbness tingling to face L shoulder pain COMPARISON STUDY: 10/05/2017 FINDINGS: The heart is normal in size. There are left upper lung zone opacities which likely represent summation, as these were not present on the preceding study. There is no lobar consolidation. There are no pleural effusions. There is no failure.[ IMPRESSION: AP portable study. Left upper lung zone opacities, possibly representing summation artifact. No evidence of lobar consolidation, no evidence of failure Electronically signed by: Jamie Ortiz M.D. 11/13/2017 2:27 PM Dictated Date/Time: 11/13/2017 2:25 PM
[2017-11-13 14:43] LABS: HEMATOCRIT 43.8 % (37-47); HEMOGLOBIN 14.5 g/dL (12.0-16.0); MEAN CORPUSCULAR HEMOGLOBIN 27.5 pg (25-34); MEAN CORPUSCULAR HGB CONC 33.1 g/dl (32-36); RED CELL DISTRIBUTION WIDTH CV 14.4 % (11.5-14.5); RED CELL DISTRIBUTION WIDTH SD 43.7 fL (36.4-46.3); WHITE BLOOD COUNT 2.57 K/uL (4.8-10.8)
--- NOTE | 2017-11-13 14:43 | DIAGNOSTIC IMAGING REPORT ---
CT SCAN OF THE BRAIN WITHOUT IV CONTRAST CLINICAL HISTORY: Facial numbness. COMPARISON STUDY: CT of the brain dated 04/17/2017. TECHNIQUE: Unenhanced axial CT scan of the brain is performed from the vertex to the skull base. A dose lowering technique was utilized adhering to the principles of ALARA. CT DOSE: 638.56 mGycm FINDINGS: Brain parenchyma: The brain parenchyma is normal in appearance. There is no hemorrhage, mass effect, or evidence of acute territorial ischemia by CT criteria. Arredondo-white matter is preserved. No extra-axial fluid collection is seen. Ventricles, sulci, cisterns: Normal in configuration. Intracranial vasculature: The visualized intracranial vasculature at the skull base is normal in appearance. Calvarium: Unremarkable. Sinuses and mastoids: There is evidence of previous paranasal sinus surgery. The visualized paranasal sinuses are clear. There is a large right mastoid effusion. A trace left mastoid effusion is noted. Orbits: The bony orbits are grossly intact. IMPRESSION: 1. No acute intracranial abnormality. 2. Bilateral mastoid effusions, right larger than left. Electronically signed by: Nikolas Cervantes M.D. 11/13/2017 2:42 PM Dictated Date/Time: 11/13/2017 2:41 PM
[2017-11-13 14:46] LABS: MEAN PLATELET VOLUME 9.7 fL (7.4-10.4); PLATELET COUNT 60 K/uL (130-400)
[2017-11-13 15:10] LABS: EOS % 3.1 %; EOS ABS # 0.08 K/uL (0-0.5); LYMPH % 33.1 %; LYMPH ABS # 0.85 K/uL (1.2-3.4); MONO % 7.4 %; MONO ABS # 0.19 K/uL (0.11-0.59); NEUT % 56.4 %; NEUT ABS # 1.45 K/uL (1.4-6.5)
[2017-11-13 15:16] VITALS: BP 115/76; PULSE 68; O2SAT 100
[2017-11-13] MEDS ORDERED: CIPR-255 PO (15:16)
[2017-11-13 15:24] LABS: ALBUMIN 4.5 gm/dl (3.4-5.0); CALCIUM 9.4 mg/dl (8.5-10.1); CREATININE 0.93 mg/dl (0.60-1.20); POTASSIUM 3.8 mmol/L (3.5-5.1)
[2017-11-13 15:35] LABS: TOTAL PROTEIN 7.8 gm/dl (6.4-8.2)
--- NOTE | 2017-11-13 16:57 | DIAGNOSTIC IMAGING REPORT ---
MRI OF THE BRAIN WITHOUT AND WITH IV CONTRAST CLINICAL HISTORY: Possible stroke. Right mandibular and right tongue numbness. COMPARISON STUDY: MRI of the brain March 20, [address] November 05, 2017. TECHNIQUE: Utilizing a 1.5 Lucy magnet and dedicated coil, multiplanar, multiecho imaging of the brain was performed pre and postcontrast administration. IV administration of 6 mL of Gadavist contrast was uneventful. FINDINGS: There are no foci of restricted diffusion. No acute intracranial hemorrhage, midline shift or mass effect is present. Brain volume is normal. Ventricular system is normal. Basilar cisterns are patent. There are no extra-axial collections. Flow-voids for the major intracranial vessels are present. There is no intracranial mass or pathologic enhancement. No areas of parenchymal signal abnormality are present. Bilateral mastoid effusions are similar to previous exams. Calvarial signal is maintained. IMPRESSION: 1. Normal MRI of the brain. 2. Bilateral mastoid effusions which are likely chronic. Electronically signed by: Solomon Manriquez M.D. 11/13/2017 4:55 PM Dictated Date/Time: 11/13/2017 4:52 PM
== END 2017-11-13 18:35 | disposition home or self-care (01) ==
LOC: C.EDB 13:24 → C.EDA 18:35
DX: R20.0 Anesthesia of skin (principal); F41.9 Anxiety disorder, unspecified; K50.90 Crohn's disease, unspecified, without complications; F32.9 Major depressive disorder, single episode, unspecified; M79.7 Fibromyalgia; I95.9 Hypotension, unspecified; G43.909 Migraine, unspecified, not intractable, without status migrainosus; I73.00 Raynaud's syndrome without gangrene; D69.6 Thrombocytopenia, unspecified; D12.6 Benign neoplasm of colon, unspecified; Z83.3 Family history of diabetes mellitus; Z82.49 Family history of ischemic heart disease and other diseases of the circulatory system; Z80.9 Family history of malignant neoplasm, unspecified; Z83.79 Family history of other diseases of the digestive system; Z79.899 Other long term (current) drug therapy

== ENCOUNTER → 2018-01-09 | Outpatient (CLI) | payer BC, OTHER ==
[~2018-01-09] MED LIST changes: +CIPR-255 PO; +ENT3 PO; -LEVO1TAB34 PO; +MYS50 PO; +RIBOCAP PO
[2018-01-09 16:47] LABS: HEMATOCRIT 44.7 % (37-47); HEMOGLOBIN 15.1 g/dL (12.0-16.0); MEAN CELL VOLUME 82.9 fL (80-100); MEAN CORPUSCULAR HGB CONC 33.8 g/dl (32-36); RED CELL DISTRIBUTION WIDTH CV 13.5 % (11.5-14.5); WHITE BLOOD COUNT 5.54 K/uL (4.8-10.8)
[2018-01-09 17:14] LABS: MEAN PLATELET VOLUME 10.5 fL (7.4-10.4); PLATELET COUNT 88 K/uL (130-400)
[2018-01-09 17:15] LABS: ALBUMIN 4.3 gm/dl (3.4-5.0); ALKALINE PHOSPHATASE 151 U/L (45-117); ALT/SGPT 63 U/L (12-78); AST/SGOT 36 U/L (15-37); BASO % 0.2 %; BASO ABS # 0.01 K/uL (0-0.2); BLOOD UREA NITROGEN 14 mg/dl (7-18); CALCIUM 9.4 mg/dl (8.5-10.1); CARBON DIOXIDE 24 mmol/L (21-32); CREATININE 1.01 mg/dl (0.60-1.20); EOS % 2.2 %; EOS ABS # 0.12 K/uL (0-0.5); GLUCOSE 93 mg/dl (70-99); IG# 0.01 K/uL (0.00-0.02); LYMPH ABS # 0.83 K/uL (1.2-3.4); MONO % 5.2 %; MONO ABS # 0.29 K/uL (0.11-0.59); NEUT % 77.2 %; NEUT ABS # 4.28 K/uL (1.4-6.5); POTASSIUM 3.8 mmol/L (3.5-5.1); SODIUM 135 mmol/L (136-145); TOTAL PROTEIN 8.5 gm/dl (6.4-8.2)
== END | disposition home or self-care (01) ==
LOC: C.LAB 14:59
PROVIDERS: ATTEND Internal Medicine Hematology & Oncology
DX: D69.6 Thrombocytopenia, unspecified (principal); K50.90 Crohn's disease, unspecified, without complications

== ENCOUNTER → 2018-03-03 | Outpatient (CLI) | payer BC, OTHER ==
[~2018-03-03] MED LIST changes: +ACETTAB15 PO; +ASTN; -BUDE1CAP6 PO; -CIPR-255 PO; -CLR10 PO; -FLUO20CA34 PO; -FLUO40CA8 PO; -MAGN400T6 PO; -MONT1TAB3 PO; -MORP10SO PO; -PENT100C6 PO; -PHEN-876 PO; -VALA500T60 PO; +morphine solution PO
--- NOTE | 2018-03-03 11:41 | DIAGNOSTIC IMAGING REPORT ---
ABDOMEN LIMITED (US) HISTORY: 37 years-old Female THROMBOCYTOPENIA COMPARISON: Abdominal ultrasound 01/10/2018 TECHNIQUE: Multiple limited real-time sonographic images of the upper abdomen were obtained assessing grayscale appearance and color flow FINDINGS: Liver measures up to 16 cm in length. No focal hepatic mass lesions or intrahepatic biliary ductal dilation. No marginal nodularity to suggest cirrhosis. The visualized gallbladder appears unremarkable. The spleen is enlarged, 17.6 cm in length with homogeneous echogenicity. No perisplenic fluid collections or focal splenic mass lesions. IMPRESSION: Splenomegaly. The above report was generated using voice recognition software. It may contain grammatical, syntax or spelling errors. Electronically signed by: Lucian Martinez M.D. 03/03/2018 11:40 AM Dictated Date/Time: 03/03/2018 11:38 AM
== END | disposition home or self-care (01) ==
LOC: C.ULTRBC 09:34
PROVIDERS: ATTEND Internal Medicine Hematology & Oncology
DX: D69.6 Thrombocytopenia, unspecified (principal); R16.1 Splenomegaly, not elsewhere classified

== ENCOUNTER 2019-08-22 21:10 | Inpatient (IN) ==
[2019-08-22] MEDS ORDERED: ACETAMINOPHEN 1,000 MG/100 ML VIAL IV STA (21:40)
[2019-08-22] MEDS ORDERED: PROMETHAZINE 12.5 MG/50.5 ML BAG IV STA (21:40)
--- NOTE | 2019-08-22 21:47 | Emergency Department Note ---
History of Present Illness General Chief complaint: Abdominal Pain Stated complaint: SEVERE CROHNS FLARE UP Time Seen by Provider: 08/22/19 21:32 History of Present Illness Maximum Pain Intensity: 8 This is a 39-year-old female presenting to the emergency department for evaluation of abdominal pain and nausea for the past 3 weeks. The patient has a history of Crohn's and feels like she has had a flare. She does follow with [facility] and initially was placed on a long tapering dose of prednisone at 60 mg daily for 4 days, then reduce by 10 mg every 4 days. The patient took the first week and a half of the medicine and did not feel much better as she was tapering down. She went to her primary care physician who returned her to 60 mg dosing. The patient saw her PCP 2 days ago with this complaint. The patient has not had fevers or chills. She does have some mouth sores although these are somewhat improving from earlier. She rates her current discomfort a 8/10. She has had some mild blood in her colostomy bag. Home Medications Home Medications Medication Instructions Recorded Confirmed Type fluticasone propionate 50 2 sprays INTNAS DAILY PRN 05/08/18 08/22/19 History mcg/actuation nasal spray,suspension dextromethorphan-guaifenesin 1 tab PO Q12H PRN 08/04/18 08/22/19 History [Mucinex DM] pantoprazole [Protonix] 40 mg PO BID PRN 08/04/18 08/22/19 History primidone 100 mg PO BID 08/04/18 08/22/19 History Solu-Medrol Solution 0 mg IV UD 11/15/18 08/22/19 History acetaminophen [Tylenol] 650 mg PO UD PRN 11/15/18 08/22/19 History diphenhydramine HCl [Benadryl] 50 mg PO UD PRN 11/15/18 08/22/19 History epinephrine [EpiPen] 0.3 mg IM UD PRN 11/15/18 08/22/19 History ergocalciferol (vitamin D2) 50,000 unit PO WK 11/15/18 08/22/19 History [Vitamin D2] fremanezumab-vfrm 225 mg SUBCUT MONTHLY 11/15/18 08/22/19 History immune globul G-gly-IgA avg 46 25 g IV Q4WK 11/15/18 08/22/19 History [Gamunex-C] acetaminophen-caffeine [Excedrin 0 tab PO Q6H PRN 07/17/19 08/22/19 History Tension Headache] primidone 50 mg PO .MIDDAY 07/17/19 08/22/19 History ustekinumab [Stelara] 90 mg SUBCUT .[id number] 07/17/19 08/22/19 History Allergies Allergy/AdvReac Type Severity Reaction Status Date / Time bee venom protein (honey bee) Allergy Severe anaphylaxis Verified 08/22/19 22:29 clarithromycin Allergy Severe breathing Verified 08/22/19 22:29 problems adhesive Allergy Intermediate itching, Verified 08/22/19 22:29 swelling hydromorphone Allergy Intermediate RASH Verified 08/22/19 22:29 latex Allergy Intermediate itching, Verified 08/22/19 22:29 swelling ondansetron Allergy Intermediate itching Verified 08/22/19 22:29 peanut Allergy Intermediate Rash and Verified 08/22/19 22:29 itchiness albuterol Allergy Mild rash Verified 08/22/19 22:29 hydroxyzine Allergy Mild itching Verified 08/22/19 22:29 oxycodone Allergy Mild itching Verified 08/22/19 22:29 ketorolac Allergy Unknown unknown Verified 08/22/19 22:29 barium sulfate AdvReac Intermediate diarrhea Verified 08/22/19 22:29 pregabalin AdvReac Intermediate delusions Verified 08/22/19 22:29 sucralose AdvReac Mild Nausea Verified 08/22/19 22:29 [From Splenda (sucralose)] SPLENDA Allergy Intermediate Nausea/Vomi Uncoded 08/22/19 22:29 ting Lobster AdvReac Intermediate nausea, Uncoded 08/22/19 22:29 diarrhea Past Med/Surg History Medical History Anxiety (Chronic) Colon dysplasia (Chronic) Colorectal cancer (Acute) Crohn disease (Acute) CVID (common variable immunodeficiency) Depression (Chronic) Endometriosis (Chronic) Endometriosis (Acute) Fibromyalgia (Chronic) Fibromyalgia (Acute) History of iron deficiency anemia (Chronic) Ileostomy in place (Chronic) Interstitial cystitis (Chronic) Interstitial cystitis (Acute) Migraine (Chronic) Migraines (Acute) Migraines Raynauds disease (Chronic) Raynauds disease (Acute) Thrombocytopenia (Chronic) Surgical History H/O colonoscopy (Chronic) H/O esophagogastroduodenoscopy (Chronic) H/O laparoscopy (Chronic) "biopsy for endometriosis" H/O sinus surgery (Acute) H/O: hysterectomy (Acute) H/O: hysterectomy Ileostomy in place (Acute) S/P appendectomy (Chronic) S/P hysterectomy (Chronic) Family History Father Coronary heart disease Mother Graves disease Social History Preferred Language: Divehi Feels Safe at Home: Yes Smoking Status: Never smoker Review of Systems A total of 10 systems reviewed and were otherwise negative Physical Exam Vital Signs Vital Signs - 24 hr 08/22/19 21:12 08/22/19 22:30 08/23/19 00:27 Temperature 37.0 C Temperature Source Oral Pulse Rate 92 H Pulse Rate [Finger] 66 60 Respiratory Rate 18 18 18 Respiratory Effort / Characteristics Non-Labored Spontaneous Respiratory Depth Normal Respiratory Pattern Regular Blood Pressure 125/94 Blood Pressure [Left Arm] 105/66 108/77 Blood Pressure Mean 104 Blood Pressure Mean [Left Arm] 79 87 Blood Pressure Position Sitting Pulse Oximetry 96 94 97 Oxygen Delivery Method Room Air Room Air Room Air Sepsis Recent Fever Within 48 Hours No Sepsis Action Taken by Nursing No Action Required 08/23/19 02:14 08/23/19 04:16 08/23/19 05:36 Temperature Temperature Source Pulse Rate Pulse Rate [Finger] 63 66 71 Respiratory Rate 18 18 18 Respiratory Effort / Characteristics Respiratory Depth Respiratory Pattern Blood Pressure Blood Pressure [Left Arm] 96/64 L 111/79 110/72 Blood Pressure Mean Blood Pressure Mean [Left Arm] 74 89 84 Blood Pressure Position Pulse Oximetry 97 97 97 Oxygen Delivery Method Room Air Room Air Room Air Sepsis Recent Fever Within 48 Hours Sepsis Action Taken by Nursing VITALS: Vitals are noted on the nurse's note and reviewed by myself. Vital signs stable. GENERAL: Well-developed, well-nourished, white female, who is in no acute distress and resting comfortably. Patient is cooperative with the examination. HEAD: Normocephalic atraumatic. EARS: External ear normal. External auditory canals clear, tympanic membranes pearly ackerman without erythema or effusion bilaterally. EYES: Pupils equal round and reactive to light and accommodation. Conjunctivae without injection, sclerae without icterus. Extraocular movements intact. NOSE: Patent, turbinates without inflammation or discharge. MOUTH: Mucous membranes moist. Tonsils are not enlarged. Pharynx without erythema, blood, or exudate. Uvula midline. Airway patent. Shallow oral ulcers identified NECK: Supple without nuchal rigidity. No lymphadenopathy. No thyromegaly. Cervical spine is nontender. HEART: Regular rate and rhythm without murmurs gallops or rubs. LUNGS: Clear to auscultation bilaterally without wheezes, rales or rhonchi. No retractions or accessory muscle use. ABDOMEN: Positive normal bowel sounds x 4. Soft without significant tenderness. Colostomy bag noted in the right lower quadrant. MUSCULOSKELETAL: No muscle atrophy, erythema, or edema noted. Full range of motion in all extremities. NEURO: Patient was alert and oriented to person place and time. CN II through XII grossly intact. SKIN: The skin was without rashes, erythema, edema, or bruising. Capillary refill less than 2 seconds. Course Administered Medications Ioversol (Optiray 320 100ml) 94 ml IV ONCE PRN PRN Reason: Interaction Checking Stop: 08/27/19 02:27 Last Admin: 08/23/19 02:28 Dose: 94 ml Documented by: [id number] Discontinued Medications Heparin Sodium (Porcine) (Heparin Sod 100 Unit/Ml Flush) Confirm Administered Dose 5 ml .ROUTE .STK-MED ONE Stop: 08/23/19 02:33 Last Admin: 08/23/19 02:34 Dose: 5 ml Documented by: [id number] Sodium Chloride (Nss 1000ml) 1,000 mls @ 999 mls/hr IV .Q1H1M JAZ Stop: 08/22/19 23:41 Last Infusion: 08/23/19 00:47 Dose: 0 mls/hr Documented by: [id number] Admin: 08/22/19 23:44 Dose: 999 mls/hr Documented by: [id number] Infusion: 08/22/19 23:19 Dose: 0 mls/hr Documented by: [id number] Admin: 08/22/19 22:08 Dose: 999 mls/hr Documented by: [id number] Promethazine HCl (Phenergan) 12.5 mg in 50.5 mls @ 202 mls/hr IV NOW STA Stop: 08/22/19 21:54 Last Infusion: 08/22/19 22:24 Dose: 0 mls/hr Documented by: [id number] Admin: 08/22/19 22:08 Dose: 202 mls/hr Documented by: [id number] Acetaminophen (Ofirmev) 1,000 mg in 100 mls @ 400 mls/hr IV NOW STA Stop: 08/22/19 21:54 Last Infusion: 08/22/19 22:44 Dose: 0 mls/hr Documented by: [id number] Admin: 08/22/19 22:27 Dose: 400 mls/hr Documented by: [id number] Medical Decision Making Differential Diagnosis Differential diagnosis: Etiologies such as Crohn's exacerbation, biliary colic, cholecystitis, hepatitis, pancreatitis, cardiac disease, pancreatitis, gastritis, peptic ulcer disease, appendicitis, cystitis, diverticulitis, mesenteric ischemia, inflammatory bowel disease, ileus, bowel obstruction, testicular/adnexal torsion, aortic pathology, shingles, as well as others were considered Laboratory Data Result diagrams: 08/22/19 21:37 08/22/19 21:37 Lab Results 08/22/19 08/22/19 08/22/19 Range/Units 21:37 21:37 21:37 WBC 4.23 L (4.8-10.8) K/uL RBC 4.56 (4.2-5.4) M/uL Hgb 12.6 (12.0-16.0) g/dL Hct 39.1 (37-47) % MCV 85.7 (80-100) fL MCH 27.6 (25-34) pg MCHC 32.2 (32-36) g/dL RDW Std Deviation 44.5 (36.4-46.3) fL RDW Coeff of [place] 14.4 (11.5-14.5) % Plt Count 90 L (130-400) K/uL MPV 10.3 (7.4-10.4) fL Immature Gran % (Auto) 0.2 % Neut % (Auto) 75.3 % Lymph % (Auto) 16.5 % [place] % (Auto) 8.0 % Eos % (Auto) 0.0 % Baso % (Auto) 0.0 % Immature Gran # (Auto) 0.01 (0.00-0.02) K/uL Neut # (Auto) 3.18 (1.4-6.5) K/uL Lymph # (Auto) 0.70 L (1.2-3.4) K/uL [place] # (Auto) 0.34 (0.11-0.59) K/uL Eos # (Auto) 0.00 (0-0.5) K/uL Baso # (Auto) 0.00 (0-0.2) K/uL ESR 8 (0-21) mm/hr Sodium 140 (136-145) mmol/L Potassium 3.9 (3.5-5.1) mmol/L Chloride 107 (98-107) mmol/L Carbon Dioxide 30 (21-32) mmol/L Anion Gap 3.0 (3-11) BUN 17 (7-18) mg/dl Creatinine 0.91 (0.6-1.2) mg/dl Est Cr Clr Drug Dosing 82.9 ml/min Est GFR ( Amer) 91.5 Est GFR (Non-Af Amer) 78.9 BUN/Creatinine Ratio 19.1 (10-20) Glucose 106 H (70-99) mg/dl Calcium 8.9 (8.5-10.1) mg/dl Total Bilirubin 0.9 (0.2-1) mg/dl AST 21 (15-37) U/L ALT 35 (12-78) U/L Alkaline Phosphatase 56 (45-117) U/L C-Reactive Protein < 0.29 (0-0.29) mg/dl Total Protein 6.7 (6.4-8.2) gm/dl Albumin 3.1 L (3.4-5.0) gm/dl Globulin 3.6 (2.5-4.0) gm/dl Albumin/Globulin Ratio 0.9 (0.9-2) Lipase 1568 H (73-393) U/L Urine Color Urine Appearance (Clear) Urine pH (4.5-7.5) Ur Specific [place] (1.000-1.030) Urine Protein (Negative) Urine Glucose (UA) (Negative) Urine Ketones (Negative) Urine Blood (Negative) Urine Nitrite (Negative) Urine Bilirubin (Negative) Urine Urobilinogen (Negative) Ur Leukocyte Esterase (Negative) POC Ur Test (NEG) 08/22/19 08/22/19 Range/Units 21:37 21:37 WBC (4.8-10.8) K/uL RBC (4.2-5.4) M/uL Hgb (12.0-16.0) g/dL Hct (37-47) % MCV (80-100) fL MCH (25-34) pg MCHC (32-36) g/dL RDW Std Deviation (36.4-46.3) fL RDW Coeff of [place] (11.5-14.5) % Plt Count (130-400) K/uL MPV (7.4-10.4) fL Immature Gran % (Auto) % Neut % (Auto) % Lymph % (Auto) % [place] % (Auto) % Eos % (Auto) % Baso % (Auto) % Immature Gran # (Auto) (0.00-0.02) K/uL Neut # (Auto) (1.4-6.5) K/uL Lymph # (Auto) (1.2-3.4) K/uL [place] # (Auto) (0.11-0.59) K/uL Eos # (Auto) (0-0.5) K/uL Baso # (Auto) (0-0.2) K/uL ESR (0-21) mm/hr Sodium (136-145) mmol/L Potassium (3.5-5.1) mmol/L Chloride (98-107) mmol/L Carbon Dioxide (21-32) mmol/L Anion Gap (3-11) BUN (7-18) mg/dl Creatinine (0.6-1.2) mg/dl Est Cr Clr Drug Dosing ml/min Est GFR ( Amer) Est GFR (Non-Af Amer) BUN/Creatinine Ratio (10-20) Glucose (70-99) mg/dl Calcium (8.5-10.1) mg/dl Total Bilirubin (0.2-1) mg/dl AST (15-37) U/L ALT (12-78) U/L Alkaline Phosphatase (45-117) U/L C-Reactive Protein (0-0.29) mg/dl Total Protein (6.4-8.2) gm/dl Albumin (3.4-5.0) gm/dl Globulin (2.5-4.0) gm/dl Albumin/Globulin Ratio (0.9-2) Lipase (73-393) U/L Urine Color Yellow Urine Appearance Clear (Clear) Urine pH 5.0 (4.5-7.5) Ur Specific [place] 1.022 (1.000-1.030) Urine Protein Negative (Negative) Urine Glucose (UA) Negative (Negative) Urine Ketones Negative (Negative) Urine Blood Negative (Negative) Urine Nitrite Negative (Negative) Urine Bilirubin Negative (Negative) Urine Urobilinogen Negative (Negative) Ur Leukocyte Esterase Negative (Negative) POC Ur Test NEG (NEG) Imaging Data Radiologist's Impression: Preliminary Findings Only See Final Report For Complete Findings CT ABDOMEN & PELVIS With Contrast: Direct comparison is made to a prior study of November 15, 2018. Liver appears normal. Spleen is enlarged measuring 12.3 x 7.9 x 14.9 cm. This finding is stable relative to the previous study.. Pancreas and gallbladder appear normal. There is mild thickening in the gastric fundus. Small bowel appears normal with no stricture There is been a distal colonic resection. There is a right lower quadrant ostomy. This finding is stable from the previous study. Kidneys, adrenals, ureters and bladder appear normal. Uterus is not visualized. Impression: Mild thickening in the gastric fundus may be artifactual from incomplete distention or may reflect mild gastritis. Stable splenomegaly. Stable surgical changes of colectomy MDM Narrative Physical exam and history were performed. Nursing notes, EMR, and Medication List were personally reviewed. Patient appears to have abdominal pain bringing her to the ER [facility]. She has a history of Crohn's disease, and continues with pain despite steroid treatment through her GI and PCP. IV access was established and labs were obtained. She was hydrated with normal saline. The patient was given IV Tylenol for comfort. The patient's blood work is as above and was reviewed. She does not have a significantly elevated white blood cell count, gross anemia, bandemia, or significant electrolyte imbalance. Sed rate and CRP are normal. Lipase is elevated greater than 1500. On reevaluation the patient continues with discomfort. Because of her history of Crohn's and elevated lipase I did elect perform CT scan with IV and oral contrast. CT was reviewed by myself and radiology, and is without significant acute findings. She may have a mild gastritis, but does not seem to have acute Crohn's related fistula or abscess. Pancreas appears essentially normal on CT scan. I discussed options of care with the patient, who reports that she continues to feel unwell. Because of this I did discuss the case with the on-call hospitalist, who agreed to evaluate the patient here in the department. Please see their dictation for further patient course, plan, and disposition. The chart was completed utilizing [employer] Speech Voice Recognition Software. Grammatical errors, random word insertions, pronoun errors, and incomplete sentences are an occasional consequence of this system due to software limitations, ambient noise, and hardware issues. Any formal questions or concerns about the content, text, or information contained within the body of this dictation should be directly addressed to the provider for clarification. . Impression & Plan Generalized abdominal pain, Pancreatitis, Crohn disease Discharge Plan Visit Data Chief Complaint: Abdominal Pain Stated Complaint: SEVERE CROHNS FLARE UP ED Provider: Raquel Pillai ED Midlevel Provider: Danny Franklin Discharge Problem: Generalized abdominal pain, Pancreatitis, Crohn disease Patient Disposition: Admitted As Inpatient Discharge Instructions Interventions: ED Discharge Assessment Last Done: 08/23/19 06:00 Forms Stand Alone Forms: Call Back Authorization[facility] Prescriptions Prescriptions: No Action fluticasone propionate [Flonase Allergy Relief] 50 mcg/actuation spray,suspension 2 sprays INTNAS DAILY PRN (Reason: Congestion) RF: 0 primidone 50 mg Tablet 100 mg PO BID RF: 0 pantoprazole [Protonix] 40 mg Tablet,Delayed Release (Dr/Ec) 40 mg PO BID PRN (Reason: INDIGESTION/HEARTBURN) RF: 0 Mucinex DM 30-600 mg Tablet Extended Release 12 Hr 1 tab PO Q12H PRN (Reason: Congestion) RF: 0 acetaminophen [Tylenol] 325 mg Tablet 650 mg PO UD PRN (Reason: Pain) RF: 0 diphenhydramine HCl [Benadryl] 25 mg Capsule 50 mg PO UD PRN (Reason: PRE-TREAT) RF: 0 ergocalciferol (vitamin D2) [Vitamin D2] 50,000 unit Capsule 50,000 unit PO WK RF: 0 epinephrine [EpiPen] 0.3 mg/0.3 mL Auto-Injector 0.3 mg IM UD PRN (Reason: Allergic Reaction) RF: 0 Gamunex-C 5 gram/50 mL (10 %) Solution 25 g IV Q4WK RF: 0 fremanezumab-vfrm 225 mg/1.5 mL Syringe 225 mg subcut MONTHLY RF: 0 Solu-Medrol Solution 0 mg IV UD RF: 0 primidone 50 mg Tablet 50 mg PO .MIDDAY RF: 0 Excedrin Tension Headache 500-65 mg Tablet 0 tab PO Q6H PRN (Reason: Headache) RF: 0 Stelara 90 mg/mL syringe 90 mg SUBCUT .[id number] RF: 0 Referrals Referrals: Jeri Molina DO [Primary Care Provider] -
[2019-08-22 22:01] LABS: Appearance Urine Clear (Clear); Bilirubin Urine Negative (Negative); Blood Urine Negative (Negative); Color Urine Yellow; Glucose Urine UA Negative (Negative); Ketones Urine Negative (Negative); Leukocyte Esterase Urine Negative (Negative); Nitrite Urine Negative (Negative); Protein Urine Negative (Negative); Specific Gravity Urine 1.022 (1.000-1.030); Urobilinogen Urine Negative (Negative)
[2019-08-22] MEDS: SODIUM CHLORIDE 0.9% 1000ML 1,000 ML IV SCH ×2 (22:08→23:44)
[2019-08-22 22:18] LABS: Hematocrit (blood only) 39.1 % (37-47); Hemoglobin 12.6 g/dL (12.0-16.0); Mean Corpuscular Hemoglobin 27.6 pg (25-34); Mean Corpuscular Hgb Conc 32.2 g/dL (32-36); Mean Corpuscular Volume 85.7 fL (80-100); RDW Coefficient of Variation 14.4 % (11.5-14.5); RDW Standard Deviation 44.5 fL (36.4-46.3); Red Blood Count 4.56 M/uL (4.2-5.4); White Blood Count 4.23 K/uL (4.8-10.8)
[2019-08-22 22:36] LABS: Mean Platelet Volume 10.3 fL (7.4-10.4); Platelet Count 90 K/uL (130-400)
[2019-08-22 22:42] LABS: Immature Granulocytes # (auto) 0.01 K/uL (0.00-0.02); Immature Granulocytes % (auto) 0.2 %; Lymphocytes % (auto) 16.5 %; Monocytes # (auto) 0.34 K/uL (0.11-0.59); Neutrophils # (auto) 3.18 K/uL (1.4-6.5); Neutrophils % (auto) 75.3 %
[2019-08-22 22:43] LABS: Alanine Aminotransferase 35 U/L (12-78); Albumin Level 3.1 gm/dl (3.4-5.0); Aspartate Aminotransferase 21 U/L (15-37); BUN Creatinine Ratio 19.1 (10-20); Blood Urea Nitrogen 17 mg/dl (7-18); C Reactive Protein < 0.29 mg/dl (0-0.29); Calcium 8.9 mg/dl (8.5-10.1); Carbon Dioxide 30 mmol/L (21-32); Chloride 107 mmol/L (98-107); Creatinine Clr Calc Pharmacy 82.9 ml/min; Est GFR (African American) 91.5; Est GFR (Non-African American) 78.9; Glucose 106 mg/dl (70-99); Potassium 3.9 mmol/L (3.5-5.1); Sodium 140 mmol/L (136-145)
[2019-08-22 22:45] LABS: Albumin Globulin Ratio 0.9 (0.9-2); Alkaline Phosphatase 56 U/L (45-117); Bilirubin,Total 0.9 mg/dl (0.2-1); Globulin 3.6 gm/dl (2.5-4.0); Lipase 1568 U/L (73-393); Total Protein 6.7 gm/dl (6.4-8.2)
[2019-08-23] MEDS ORDERED: IOVERSOL 100ml IV PRN (02:28)
[2019-08-23] MEDS ORDERED: HEPARIN 100 UNIT/ML 5ML FLUSH ONE (02:32)
--- NOTE | 2019-08-23 05:35 | History & Physical Report ---
Date of Service August 23, 2019 Assessment & Plan (1) Pancreatitis: 39-year-old female with history of Crohn's disease, CVID, endometriosis, fibromyalgia, migraines presents with abdominal pain. Was found to have lipase of 1568. She has been experiencing symptoms of Crohn's flare for proximally 3 weeks and has been on steroids. Pancreatitis Steroids listed as possible cause of pancreatitis, patient currently treated with steroids for Crohn's flare Continue fluids, normal saline 200 cc/h Keep patient n.p.o., hold home medications Control painmorphine 2 mg every 3 hours or IV Tylenol thousand milligrams every 8 hours Consult gastroenterology, appreciate recommendations Crohn's flare Currently holding steroid treatment at this time in the setting of pancreatitis Consult GI, appreciate recommendations Receives Stelara every 8 weeks, not due anytime soon, reports receiving approximately 2 weeks ago CVID Receives immunoglobulins every 4 to 6 weeks, not due anytime soon Migraines/tremor Patient receives Fremanzumab q. monthly Hold primidone Significant history of allergies PRN Doris States that she is tolerated morphine in the past DVT prophylaxis SCDs/ambulation CODE STATUS Full Diet N.p.o., normal saline 200 cc/h (2) CVID (common variable immunodeficiency): (3) Endometriosis: (4) Fibromyalgia: (5) Migraine: (6) Raynauds disease: (7) Anxiety: (8) Depression: History of Present Illness Primary Care Provider: Jeri Molina DO 39-year-old female with history of Crohn's disease, CVID, endometriosis, fibromyalgia, migraines presents with abdominal pain. States that the pain is been ongoing for the past 3 weeks as she is been treated with steroids for a Crohn's flare. Her symptoms of included diarrhea, mouth ulcers, bloody stools and abdominal pain. She states that the abdominal pain is predominantly on the right side. She feels that the incident was exacerbated by a recent viral illness that she had. She denies any fevers, chills, night sweats. Allergies Allergy/AdvReac Type Severity Reaction Status Date / Time bee venom protein (honey bee) Allergy Severe anaphylaxis Verified 08/22/19 22:29 clarithromycin Allergy Severe breathing Verified 08/22/19 22:29 problems adhesive Allergy Intermediate itching, Verified 08/22/19 22:29 swelling hydromorphone Allergy Intermediate RASH Verified 08/22/19 22:29 latex Allergy Intermediate itching, Verified 08/22/19 22:29 swelling ondansetron Allergy Intermediate itching Verified 08/22/19 22:29 peanut Allergy Intermediate Rash and Verified 08/22/19 22:29 itchiness albuterol Allergy Mild rash Verified 08/22/19 22:29 hydroxyzine Allergy Mild itching Verified 08/22/19 22:29 oxycodone Allergy Mild itching Verified 08/22/19 22:29 ketorolac Allergy Unknown unknown Verified 08/22/19 22:29 barium sulfate AdvReac Intermediate diarrhea Verified 08/22/19 22:29 pregabalin AdvReac Intermediate delusions Verified 08/22/19 22:29 sucralose AdvReac Mild Nausea Verified 08/22/19 22:29 [From Splenda (sucralose)] SPLENDA Allergy Intermediate Nausea/Vomi Uncoded 08/22/19 22:29 ting Lobster AdvReac Intermediate nausea, Uncoded 08/22/19 22:29 diarrhea Home Medications Home Medications Medication Instructions Recorded Confirmed Type fluticasone propionate 50 2 sprays INTNAS DAILY PRN 05/08/18 08/22/19 History mcg/actuation nasal spray,suspension dextromethorphan-guaifenesin 1 tab PO Q12H PRN 08/04/18 08/22/19 History [Mucinex DM] pantoprazole [Protonix] 40 mg PO BID PRN 08/04/18 08/22/19 History primidone 100 mg PO BID 08/04/18 08/22/19 History Solu-Medrol Solution 0 mg IV UD 11/15/18 08/22/19 History acetaminophen [Tylenol] 650 mg PO UD PRN 11/15/18 08/22/19 History diphenhydramine HCl [Benadryl] 50 mg PO UD PRN 11/15/18 08/22/19 History epinephrine [EpiPen] 0.3 mg IM UD PRN 11/15/18 08/22/19 History ergocalciferol (vitamin D2) 50,000 unit PO WK 11/15/18 08/22/19 History [Vitamin D2] fremanezumab-vfrm 225 mg SUBCUT MONTHLY 11/15/18 08/22/19 History immune globul G-gly-IgA avg 46 25 g IV Q4WK 11/15/18 08/22/19 History [Gamunex-C] acetaminophen-caffeine [Excedrin 0 tab PO Q6H PRN 07/17/19 08/22/19 History Tension Headache] primidone 50 mg PO .MIDDAY 07/17/19 08/22/19 History ustekinumab [Stelara] 90 mg SUBCUT .[id number] 07/17/19 08/22/19 History Past Med/Surg History Medical History Anxiety (Chronic) Colon dysplasia (Chronic) Colorectal cancer (Acute) Crohn disease (Acute) CVID (common variable immunodeficiency) Depression (Chronic) Endometriosis (Chronic) Endometriosis (Acute) Fibromyalgia (Chronic) Fibromyalgia (Acute) History of iron deficiency anemia (Chronic) Ileostomy in place (Chronic) Interstitial cystitis (Chronic) Interstitial cystitis (Acute) Migraine (Chronic) Migraines (Acute) Migraines Raynauds disease (Chronic) Raynauds disease (Acute) Thrombocytopenia (Chronic) Surgical History H/O colonoscopy (Chronic) H/O esophagogastroduodenoscopy (Chronic) H/O laparoscopy (Chronic) "biopsy for endometriosis" H/O sinus surgery (Acute) H/O: hysterectomy (Acute) H/O: hysterectomy Ileostomy in place (Acute) S/P appendectomy (Chronic) S/P hysterectomy (Chronic) Family History Father Coronary heart disease Mother Graves disease Social History Preferred Language: Bahraini Feels Safe at Home: Yes Smoking Status: Never smoker Review of Systems Constitutional: no fever and no chills Ear, Nose, Mouth, Throat: + nasal congestion Respiratory: no cough, no dyspnea and no wheezing Cardiovascular: no chest pain Gastrointestinal: + abdominal pain, + diarrhea/loose stools and + blood in stools Physical Exam Constitutional: WD/WN, vitals as above Eyes: PERRL, conjunctivae normal, anicteric sclerae ENMT: external ear and nose normal, oropharynx normal Neck: trachea midline, no thyromegaly Respiratory: normal respiratory effort, lungs clear to auscultation Cardiovascular: RRR, no murmur, no edema Gastrointestinal (Abdomen): Inspection/Auscultation: normal bowel sounds; + abdomen abnormal to inspection (colostomy on right ) and abdomen not distended Percussion/Palpation: + abdomen tender (predominently on right ); no guarding and abdomen not rigid Musculoskeletal: no cyanosis or clubbing, extremities motor strength 5/5 Skin: no rashes, warm and dry Neurologic: PERRL, EOMI, accommodation nl, no face palsy, no dysarthria Psychiatric: A+Ox3, euthymic affect Results & Data Vital Signs (Past 12 Hours) Vital Signs Temp Pulse Pulse Resp BP BP Pulse Ox 08/23/19 04:16 66 18 111/79 97 08/23/19 02:14 63 18 96/64 L 97 08/23/19 00:27 60 18 108/77 97 08/22/19 22:30 66 18 105/66 94 08/22/19 21:12 37.0 C 92 H 18 125/94 96 Supervising Physician Co-Signing Physician Notes Patient was seen and examined by me personally. I reviewed the chart, the orders and discussed the case in detail with Dr. Norberto Mejias MD . I read this H&P and agree with its contents to entirety. Resident Activity Tracking Resident Involvement: Resident Care Provided Care Provided: Adult Hospital Medicine
--- NOTE | 2019-08-23 05:58 | Billing Data ---
Date of Service August 23, 2019 Coding Level of Care Code 32316 Initial Inpt Care Lvl 3
[2019-08-23] MEDS: SODIUM CHLORIDE 0.9% 1000ML 1,000 ML IV SCH ×3 (07:11→23:47)
--- NOTE | 2019-08-23 07:16 | CT Scan Report ---
CT OF THE ABDOMEN AND PELVIS WITH CONTRAST CLINICAL HISTORY: Abdominal pain. Crohns. Elevated lipase. COMPARISON STUDY: CT of the abdomen and pelvis November 15, 2018. TECHNIQUE: Following IV administration of 94 mL of Optiray-320, axial images of the abdomen and pelvi s were obtained from the lung bases to the proximal femurs. Images were reviewed in the axial, sagitt al, and coronal planes. IV contrast was administered without complication. Automated exposure contro l was utilized for the study. A dose lowering technique was utilized adhering to the principles of A JUDY. Oral contrast was administered. CT DOSE: 555.88 mGy.cm FINDINGS: The liver, adrenal glands, kidneys and pancreas are normal. There is no peripancreatic infi ltration. There is no peripancreatic fluid collection. The appearance of the pancreas is unchanged si nce prior exam. There is no hydronephrosis. No biliary or pancreatic ductal dilatation is noted. Sple nomegaly is unchanged. The patient status post total colectomy with right lower quadrant ileostomy. T here is no evidence for a bowel obstruction. No bowel wall thickening is noted. No pneumatosis, free air or portal venous gas is noted. No suspicious osseous lesions are noted. There is no lymphadenopat hy. Major vasculature is patent. IMPRESSION: 1. No acute process within the abdomen or pelvis. 2. Status post colectomy with right lower quadrant ileostomy. No bowel obstruction. 3. Apparent mild wall thickening of the gastric fundus which is likely due to underdistention. 4. Stable splenomegaly. ACT 112: Negative or not required by law. Electronically signed by: Solomon Manriquez M.D. 08/23/2019 7:15 AM
[2019-08-23] MEDS: MoRPHine SULFATE 2 MG/ML CARP IV PRN ×4 (07:49→22:44)
--- NOTE | 2019-08-23 08:33 | Hospitalist Progress Note ---
Date of Service August 23, 2019 Assessment & Plan (1) Pancreatitis: 39-year-old female with history of Crohn's disease, CVID, endometriosis, fibromyalgia, migraines presents with abdominal pain. Was found to have lipase of 1568. She has been experiencing symptoms of Crohn's flare for proximally 3 weeks and has been on steroids. Pancreatitis Steroids listed as possible cause of pancreatitis, patient currently treated with steroids for Crohn's flare Continue fluids, normal saline 200 cc/h Initially kept n.p.o., holding home medications, repeat Lipase was 191, Pancreatitis appears to have resolved, will re-start diet with full liquids and advance as tolerated. Control painmorphine 2 mg every 3 hours or IV Tylenol thousand milligrams every 8 hours Consult gastroenterology, appreciate recommendations -Lipids/Triglycerides ordered for hypertriglyceridemia as culprit, but no significantly elevations, Triglycerides were mildly elevated but not significantly to be etiology -Since on recent prolonged course of steriods will check A1C to see if steroid induced DM causing dehydration through osmotic diuresis leading to dehydration as possible etiology -Note no abscess or timmy-inflammatory process seen on CT Abd. Crohn's flare Currently holding steroid treatment at this time in the setting of pancreatitis Consult GI, appreciate recommendations Receives Stelara every 8 weeks, not due anytime soon, reports receiving a pproximately 2 weeks ago CVID Receives immunoglobulins every 4 to 6 weeks, not due anytime soon Migraines/tremor Patient receives Fremanzumab q. monthly Hold primidone Significant history of allergies PRN Tavaresl States that she is tolerated morphine in the past DVT prophylaxis SCDs/ambulation CODE STATUS Full Diet N.p.o., normal saline 200 cc/h (2) CVID (common variable immunodeficiency): (3) Endometriosis: (4) Fibromyalgia: (5) Migraine: (6) Raynauds disease: (7) Anxiety: (8) Depression: Supervising Physician Co-Signing Physician Notes Attending attestation Pt seen and examined in concert with Dr. Sim. In agreement with the documented findings as noted in the resident documentation with any exceptions or additions as noted here. Resting comfortably in bed without complaint. On examination, S1/S2 nl RRR no MCG. CTAB. Abd mildly TTP epigastrically, ND BS+ve, ostomy with liquid brown output. Pancreatitis - significantly improved while NPO and on IV hydration. Gastroenterology consultation pending. TG are elevated, but not considerably. Pain control. Advance diet following GI eval unless otherwise needed. Crohn's disease with flare - GI consultation - Kya q8wks Else see resident documentation as noted. Subjective Patient was laying in exam bed this AM. She notes no significant improvement with her pain. She notes watery output from her ileosotomy bag and is requesting a clear bag/changing of bag. She notes this is typical for her when she is in the hospital NPO. She denies shortness of breath, chest pain, nausea, vomiting. Physical Exam Constitutional: WD/WN, vitals as above cooperative and comfortable; not ill appearing Eyes: PERRL, conjunctivae normal, anicteric sclerae ENMT: external ear and nose normal, oropharynx normal Neck: normal visual inspection and trachea midline Respiratory: normal respiratory effort, lungs clear to auscultation Cardiovascular: RRR, no murmur, no edema Chest (Breasts): Additional Comments: Right upper chest wall [place] Gastrointestinal (Abdomen): Percussion/Palpation: abdomen soft; no guarding and abdomen not rigid ileosotomy bag intact to RLQ Musculoskeletal: Head/Neck/Chest: normocephalic and head atraumatic Skin: no rashes, warm and dry Neurologic: moves all extremities and awake Psychiatric: A+Ox3, euthymic affect Results & Data Vital Signs (Past 12 Hours) Vital Signs Temp Pulse Pulse Resp BP BP Pulse Ox 08/23/19 07:38 36.6 C 98 H 16 114/79 98 08/23/19 06:16 36.4 C L 76 18 115/74 98 08/23/19 05:36 71 18 110/72 97 08/23/19 04:16 66 18 111/79 97 08/23/19 02:14 63 18 96/64 L 97 08/23/19 00:27 60 18 108/77 97 08/22/19 22:30 66 18 105/66 94 08/22/19 21:12 37.0 C 92 H 18 125/94 96 Resident Activity Tracking Resident Involvement: Resident Care Provided Care Provided: Adult [facility]
[2019-08-23 12:08] LABS: Hematocrit (blood only) 35.4 % (37-47); Hemoglobin 11.3 g/dL (12.0-16.0); Mean Corpuscular Hemoglobin 27.3 pg (25-34); Mean Corpuscular Hgb Conc 31.9 g/dL (32-36); Mean Corpuscular Volume 85.5 fL (80-100); RDW Coefficient of Variation 14.7 % (11.5-14.5); RDW Standard Deviation 45.2 fL (36.4-46.3); Red Blood Count 4.14 M/uL (4.2-5.4); White Blood Count 2.47 K/uL (4.8-10.8)
[2019-08-23 12:14] LABS: Mean Platelet Volume 10.4 fL (7.4-10.4); Platelet Count 61 K/uL (130-400)
[2019-08-23 12:34] LABS: Albumin Level 2.7 gm/dl (3.4-5.0); BUN Creatinine Ratio 12.4 (10-20); Calcium 8.2 mg/dl (8.5-10.1); Creatinine Clr Calc Pharmacy 82.9 ml/min; Est GFR (African American) 91.5; Est GFR (Non-African American) 78.9; Potassium 3.7 mmol/L (3.5-5.1)
[2019-08-23 12:35] LABS: Eosinophils # (auto) 0.02 K/uL (0-0.5); Eosinophils % (auto) 0.8 %; Lymphocytes % (auto) 44.5 %; Monocytes # (auto) 0.19 K/uL (0.11-0.59); Monocytes % (auto) 7.7 %; Neutrophils # (auto) 1.16 K/uL (1.4-6.5)
[2019-08-23 12:50] LABS: Albumin Globulin Ratio 0.9 (0.9-2); Bilirubin,Total 0.8 mg/dl (0.2-1); Total Protein 5.7 gm/dl (6.4-8.2)
--- NOTE | 2019-08-23 14:38 | Gastrointestinal Consultation ---
Date of Consultation August 23, 2019 Assessment & Plan (1) Crohn disease: With normal WBC and normal SB on CT scan I am not sure this is a crohns flare or not. I recommend patient having an ileoscopy done whether here or [facility] (will set up for tomorrow and Dr Traylor can touch base with DR Capone to see if it should be done here or whether they want to do it there. With regards to steroids she is at about the 2 week point where stopping them abruptly may lead to an issue of her not being able to produce enough. In case this is a flare do not want to stop them either. In absence of pancreas inflammation on CT and rapid drop in number I am not convinced. she has pancreatiis. Steroids as a causative agent in pancreatitis somewhat up in the air. I also do not want to label her as not being able to use steroids as they are extremely helpful in managing crohns flares. For all those reasons will continue prednisone 60 mg per day for now. abd pain--ileoscopy as above to see if from crohns elevated lipase--as above. History of Present Illness Reason for Consultation: pancreatitis, crohns flare, ? continue steroids Requesting Physician: DR Norberto Mejias Attending Physician: Capo Dumont MD History of Present Illness CC abd pain HPI Pt has seen DR Jaimes locally in the past but now is patient of DR Jun Capone in [place]. She has not seen [facility] locally but I was able to access [place] records. I found that she has crohns disease diagnosed. 2007 by colonoscopy and biopsy. She was on Remicade and Entyvio. Because of dysplasia on colon biopsies she underwent total proctocolecotomy and ileostomy 2015. She was on Budesonide then until 11/2018 she was started on Stelara. She has hx of recurrent Cdiff infection. She had Ileoscopy 11/2018 to 25 cm normal with normal bx, Ileoscopy 03/2018 nl exam to 25 cm path neg. EGD 03/2018 irreg Z line path inflammation, body/antrum erosions path inflammation neg for H.pylori. She had MRI enterography 11/2018 mild thickenign of bowel near stoma and 6 mm cystic lesion tail of pancreas. There is mention of abd pain at several office visits with use of Neurontin, and Elavil not helpful. She was tapered off Budesonide on Stelara was started. but has been on 2-3 courses of steroids since 11/2018. She was having increased abd pain about 14 days ago was started on Prednisone by DR Capone at 60 mg daily to taper by 10 mg every 4 days. She felt ok at 60 mg but once down to 50 mg had pain come back. Two days ago had Prednisone increased by PCP up to 60 mg daily but comes in for nausea, looser ostomy output and abd pain 8/10. Abd pain 5/[address] She had [address] a/p this admit total colectomy, splenomegaly. LFTS normal. Lipase 1568 on admit and 191 today. Allergies Allergy/AdvReac Type Severity Reaction Status Date / Time bee venom protein (honey bee) Allergy Severe anaphylaxis Verified 08/22/19 22:29 clarithromycin Allergy Severe breathing Verified 08/22/19 22:29 problems adhesive Allergy Intermediate itching, Verified 08/22/19 22:29 swelling hydromorphone Allergy Intermediate RASH Verified 08/22/19 22:29 latex Allergy Intermediate itching, Verified 08/22/19 22:29 swelling ondansetron Allergy Intermediate itching Verified 08/22/19 22:29 peanut Allergy Intermediate Rash and Verified 08/22/19 22:29 itchiness albuterol Allergy Mild rash Verified 08/22/19 22:29 hydroxyzine Allergy Mild itching Verified 08/22/19 22:29 oxycodone Allergy Mild itching Verified 08/22/19 22:29 ketorolac Allergy Unknown unknown Verified 08/22/19 22:29 barium sulfate AdvReac Intermediate diarrhea Verified 08/22/19 22:29 pregabalin AdvReac Intermediate delusions Verified 08/22/19 22:29 sucralose AdvReac Mild Nausea Verified 08/22/19 22:29 [From Splenda (sucralose)] SPLENDA Allergy Intermediate Nausea/Vomi Uncoded 08/22/19 22:29 ting Lobster AdvReac Intermediate nausea, Uncoded 08/22/19 22:29 diarrhea Home Medications Home Medications Medication Instructions Recorded Confirmed Type fluticasone propionate 50 2 sprays INTNAS DAILY PRN 05/08/18 08/22/19 History mcg/actuation nasal spray,suspension dextromethorphan-guaifenesin 1 tab PO Q12H PRN 08/04/18 08/22/19 History [Mucinex DM] pantoprazole [Protonix] 40 mg PO BID PRN 08/04/18 08/22/19 History primidone 100 mg PO BID 08/04/18 08/22/19 History Solu-Medrol Solution 0 mg IV UD 11/15/18 08/22/19 History acetaminophen [Tylenol] 650 mg PO UD PRN 11/15/18 08/22/19 History diphenhydramine HCl [Benadryl] 50 mg PO UD PRN 11/15/18 08/22/19 History epinephrine [EpiPen] 0.3 mg IM UD PRN 11/15/18 08/22/19 History ergocalciferol (vitamin D2) 50,000 unit PO WK 11/15/18 08/22/19 History [Vitamin D2] fremanezumab-vfrm 225 mg SUBCUT MONTHLY 11/15/18 08/22/19 History immune globul G-gly-IgA avg 46 25 g IV Q4WK 11/15/18 08/22/19 History [Gamunex-C] acetaminophen-caffeine [Excedrin 0 tab PO Q6H PRN 07/17/19 08/22/19 History Tension Headache] primidone 50 mg PO .MIDDAY 07/17/19 08/22/19 History ustekinumab [Stelara] 90 mg SUBCUT .[id number] 07/17/19 08/22/19 History Patient History Medical History Anxiety (Chronic) Colon dysplasia (Chronic) Colorectal cancer (Acute) Crohn disease (Acute) CVID (common variable immunodeficiency) Depression (Chronic) Endometriosis (Chronic) Endometriosis (Acute) Fibromyalgia (Chronic) Fibromyalgia (Acute) History of iron deficiency anemia (Chronic) Ileostomy in place (Chronic) Interstitial cystitis (Chronic) Interstitial cystitis (Acute) Migraine (Chronic) Migraines (Acute) Migraines Raynauds disease (Chronic) Raynauds disease (Acute) Thrombocytopenia (Chronic) Surgical History H/O colonoscopy (Chronic) H/O esophagogastroduodenoscopy (Chronic) H/O laparoscopy (Chronic) "biopsy for endometriosis" H/O sinus surgery (Acute) H/O: hysterectomy (Acute) H/O: hysterectomy Ileostomy in place (Acute) S/P appendectomy (Chronic) S/P hysterectomy (Chronic) Family History Father Coronary heart disease Mother Graves disease Social History Preferred Language: Malay Communication Ability: Effective Medical Territory Manager Required: No Beliefs That Will Affect Care: Temple Temple Beliefs: church Current Living Situation: Spouse Feels Safe at Home: Yes Smoking Status: Never smoker Hx Alcohol Use: Yes Hx Substance Use: No Review of Systems Review of Systems: All systems reviewed & are unremarkable except as noted in HPI & below Physical Exam Constitutional: WD/WN, vitals as above Eyes: PERRL, conjunctivae normal, anicteric sclerae ENMT: external ear and nose normal, oropharynx normal Respiratory: normal respiratory effort, lungs clear to auscultation Cardiovascular: RRR, no murmur, no edema Gastrointestinal (Abdomen): RLQ ostomy with green liquid stools. soft, pos bs, no guarding nor rebound. Neurologic: PERRL, EOMI, accommodation nl, no face palsy, no dysarthria Psychiatric: A+Ox3, euthymic affect Results & Data Vital Signs (Past 12 Hours) Vital Signs Temp Pulse Resp BP Pulse Ox 08/23/19 07:38 36.6 C 98 H 16 114/79 98 08/23/19 06:16 36.4 C L 76 18 115/74 98 08/23/19 05:36 71 18 110/72 97 08/23/19 04:16 66 18 111/79 97
[2019-08-23] MEDS: predniSONE 20 MG TAB PO SCH (16:07)
[2019-08-23] MEDS: ACETAMINOPHEN 1,000 MG/100 ML VIAL IV PRN (16:59)
[2019-08-23] MEDS: HEPARIN 100 UNIT/ML 5ML FLUSH FLUSH PRN ×3 (18:03→22:45)
[2019-08-23] MEDS ORDERED: FAMOTIDINE 20MG IV PUSH 20 MG/5 ML SYR IV ONE (20:15)
[2019-08-23] MEDS: PANTOprazole 40 MG TAB PO SCH (20:23)
[2019-08-24 06:16] LABS: Estimated Average Glucose 103 mg/dl; Hemoglobin A1C 5.2 % (4.5-5.6)
[2019-08-24 06:19] LABS: Hematocrit (blood only) 36.2 % (37-47); Hemoglobin 11.5 g/dL (12.0-16.0); Mean Corpuscular Hemoglobin 27.4 pg (25-34); Mean Corpuscular Hgb Conc 31.8 g/dL (32-36); Mean Corpuscular Volume 86.4 fL (80-100); RDW Coefficient of Variation 14.5 % (11.5-14.5); RDW Standard Deviation 44.9 fL (36.4-46.3); Red Blood Count 4.19 M/uL (4.2-5.4); White Blood Count 2.23 K/uL (4.8-10.8)
[2019-08-24 06:26] LABS: Mean Platelet Volume 10.2 fL (7.4-10.4); Platelet Count 69 K/uL (130-400)
[2019-08-24 06:46] LABS: Eosinophils # (auto) 0.01 K/uL (0-0.5); Eosinophils % (auto) 0.4 %; Immature Granulocytes # (auto) 0.01 K/uL (0.00-0.02); Immature Granulocytes % (auto) 0.4 %; Lymphocytes # (auto) 0.46 K/uL (1.2-3.4); Lymphocytes % (auto) 20.6 %; Monocytes # (auto) 0.12 K/uL (0.11-0.59); Monocytes % (auto) 5.4 %; Neutrophils # (auto) 1.63 K/uL (1.4-6.5); Neutrophils % (auto) 73.2 %
[2019-08-24 06:52] LABS: Est GFR (African American) 100.8; Est GFR (Non-African American) 86.9
[2019-08-24 06:53] LABS: Albumin Level 2.8 gm/dl (3.4-5.0); BUN Creatinine Ratio 12.1 (10-20); Calcium 8.4 mg/dl (8.5-10.1); Creatinine Clr Calc Pharmacy 89.8 ml/min
[2019-08-24 06:54] LABS: Albumin Globulin Ratio 0.9 (0.9-2); Bilirubin,Total 0.8 mg/dl (0.2-1); Globulin 3.2 gm/dl (2.5-4.0)
[2019-08-24 07:34] LABS: Partial Thromboplastin Ratio 0.8; Partial Thromboplastin Time 22.2 Seconds (21.0-31.0); Prothrombin Time 10.3 Seconds (9.0-12.0)
[2019-08-24] MEDS: MoRPHine SULFATE 2 MG/ML CARP IV PRN ×3 (07:49→21:57)
[2019-08-24] MEDS: predniSONE 20 MG TAB PO SCH (07:52)
[2019-08-24] MEDS: PANTOprazole 40 MG TAB PO SCH (07:53)
--- NOTE | 2019-08-24 08:25 | Hospitalist Progress Note ---
Date of Service August 24, 2019 Assessment & Plan (1) Pancreatitis: 39-year-old female with history of Crohn's disease, CVID, endometriosis, fibromyalgia, migraines presents with abdominal pain. Was found to have lipase of 1568. She has been experiencing symptoms of Crohn's flare for proximally 3 weeks and has been on steroids. Pancreatitis Initially on presentation patient had a lipase of 1568, this resolved fairly quickly repeat lipase was 191. On admission she had diffuse abdominal pain pancreatitis was certainly a possibility. However appears to have resolved pretty quickly and she is currently asymptomatic,Steroids listed as possible cause of pancreatitis, patient currently treated with steroids for Crohn's flare, a small cholelith could also explain this presentation.Initially kept n.p.o., holding home medications, repeat Lipase was 191, Pancreatitis appears to have resolved, will re-start diet with full liquids and advance as tolerated.Lipids/Triglycerides ordered for hypertriglyceridemia as culprit, but no significantly elevations, Triglycerides were mildly elevated but not significantly to be etiologySince on recent prolonged course of steriods will check A1C to see if steroid induced DM causing dehydration through osmotic diuresis leading to dehydration as possible etiology.no abscess or timmy- inflammatory process seen on CT Abd. Continue fluids, normal saline 80mls/hr Control pain -morphine 2 mg every 3 hours -IV Tylenol thousand milligrams every 8 hours Consult gastroenterology, appreciate recommendation Crohn's flare Patient symptoms have been going on for approximately 3 weeks she has had 2 steroid tapers during that time without significant improvement in her symptoms. Given the duration of her symptoms and lack of meaningful improvement this is most consistent with a Crohn's flare. For her Crohn's disease which she normally receives Stelara every 8 weeks, not due anytime soon, reports receiving approximately 2 weeks ago. Steroids were held in the setting of a pancreatitis, appears as if her pancreatitis is resolved -Resume steroids prednisone 60 mg p.o. daily Consult GI -Has been n.p.o. overnight patient for ileoscopy today with Dr. Traylor -6 mm pancreas cyst on MRI enterography at [facility] 11/2018, needs to be followed at [facility] for this CVID Receives immunoglobulins every 4 to 6 weeks, not due anytime soon Migraines/tremor Patient receives Fremanzumab q. monthly Hold primidone Significant history of allergies PRN Doris States that she is tolerated morphine in the past FENa: N.p.o. overnight for procedure Code Status: Full code DVT PPX: SCDs ambulation PT/OT: Not indicated Dispo: Home pending clinical improvement Beka Cao MD PGY 2, FCM This chart was completed utilizing [employer] voice recognition software. Grammatical errors, random word insertions, pronoun errors, and in complete sentences are an occasional consequence of the system. Any questions or concerns about the content, text, or information contained within the body of this dictation should be addressed directly to the physician for clarification. (2) CVID (common variable immunodeficiency): (3) Endometriosis: (4) Fibromyalgia: (5) Migraine: (6) Raynauds disease: (7) Anxiety: (8) Depression: Supervising Physician Co-Signing Physician Notes I personally examined the patient and verified all vargas points of history and exam, discussed case, and agree with decision making with Dr Cao. Had some nausea earlier that improved with Phenergan. Still having pain. Awaiting scope this afternoon. Vitals noted, in general she is walking around the room and does not appear to be in significant distress. HEENT normocephalic atraumatic mucous membranes are moist. Breathing unlabored no accessory muscle use good effort. Abdomen is soft she has tenderness around her ostomy and then across to the periumbilical and may be left middle of her abdomen. No guarding no rebound no rigidity. No focal neuro deficits. Abdominal painnot clear that it was pancreatitis. Her pain now is definitely lower. Her lipase was up and quickly droppedclinically this could fit with gallstone microlithiasis, but it seems like that did not fit her clinical picture on presentation. Appreciate GI input. Serial exams, await endoscopy results, continue to follow closely, symptomatic and supportive care. 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 Otherwise as above Subjective Patient sitting upright in bed this morning in no acute distress. Patient reporting complaints of nausea, and also complaining of the duration of n.p.o. if her seizures scheduled for this afternoon. The patient is frequently asking whether Dr. mendoza does contacted her physician down in [facility]. Patient reports her stomach pain has moved to her left lower quadrant from her right lower quadrant, she is voiding, producing output via her ostomy, sleeping, tolerating her diet. Acute concerns at present relate to when her procedure is going to be performed all questions answered. Physical Exam Physical Exam: General: Middle-aged female in no acute distress HEENT: Normocephalic, atraumatic, dumont face Neck: Normal to visual inspection, I did not appreciate JVD, trachea midline Cardiac: Regular rate and rhythm, I did not appreciate any murmurs rubs or gallops, normal S1, normal S2, negative pedal edema, negative calf tenderness Respiratory: Clear to auscultation bilaterally with symmetrical chest rise and and appreciate significant wheezes, rales, rhonchi GI: Soft, tender to palpation of left lower quadrant right lower quadrant, no rebound, no guarding, bowel sounds present, ostomy with output MSK: Moves all extremities Neuro: Alert and oriented x4 Psych: Calm, cooperative, participating in interview Results & Data Vital Signs (Past 12 Hours) Vital Signs Temp Pulse Resp BP Pulse Ox 08/24/19 07:29 36.4 C L 67 19 128/84 67 L 08/23/19 23:29 36.8 C 83 16 124/84 93 Laboratory Results 08/24/19 08/24/19 08/24/19 Range/Units 07:01 05:46 05:46 WBC (4.8-10.8) K/uL RBC (4.2-5.4) M/uL Hgb (12.0-16.0) g/dL Hct (37-47) % MCV (80-100) fL MCH (25-34) pg MCHC (32-36) g/dL RDW Std Deviation (36.4-46.3) fL RDW Coeff of Nikkie (11.5-14.5) % Plt Count (130-400) K/uL MPV (7.4-10.4) fL Immature Gran % (Auto) % Neut % (Auto) % Lymph % (Auto) % [place] % (Auto) % Eos % (Auto) % Baso % (Auto) % Immature Gran # (Auto) (0.00-0.02) K/uL Neut # (Auto) (1.4-6.5) K/uL Lymph # (Auto) (1.2-3.4) K/uL [place] # (Auto) (0.11-0.59) K/uL Eos # (Auto) (0-0.5) K/uL Baso # (Auto) (0-0.2) K/uL PT 10.3 Cancelled INR 1.0 Cancelled APTT 22.2 Cancelled PTT Ratio 0.8 Cancelled Sodium 140 (136-145) mmol/L Potassium 4.0 (3.5-5.1) mmol/L Chloride 109 H (98-107) mmol/L Carbon Dioxide 29 (21-32) mmol/L Anion Gap 2.0 L (3-11) BUN 10 (7-18) mg/dl Creatinine 0.84 (0.6-1.2) mg/dl Est Cr Clr Drug Dosing 89.8 ml/min Est GFR ( Amer) 100.8 Est GFR (Non-Af Amer) 86.9 BUN/Creatinine Ratio 12.1 (10-20) Glucose 89 (70-99) mg/dl Estimat Average Glucose mg/dl Hemoglobin A1c (4.5-5.6) % Calcium 8.4 L (8.5-10.1) mg/dl Total Bilirubin 0.8 (0.2-1) mg/dl AST 15 (15-37) U/L ALT 30 (12-78) U/L Alkaline Phosphatase 55 (45-117) U/L Total Protein 6.0 L (6.4-8.2) gm/dl Albumin 2.8 L (3.4-5.0) gm/dl Globulin 3.2 (2.5-4.0) gm/dl Albumin/Globulin Ratio 0.9 (0.9-2) Triglycerides (0-150) mg/dl Cholesterol (0-200) mg/dl LDL Cholesterol, Calc mg/dl VLDL Cholesterol, Calc mg/dl HDL Cholesterol mg/dl Cholesterol/HDL Ratio Lipase 135 (73-393) U/L 08/24/19 08/23/19 08/23/19 Range/Units 05:46 11:46 11:46 WBC 2.23 L (4.8-10.8) K/uL RBC 4.19 L (4.2-5.4) M/uL Hgb 11.5 L (12.0-16.0) g/dL Hct 36.2 L (37-47) % MCV 86.4 (80-100) fL MCH 27.4 (25-34) pg MCHC 31.8 L (32-36) g/dL RDW Std Deviation 44.9 (36.4-46.3) fL RDW Coeff of Nikkie 14.5 (11.5-14.5) % Plt Count 69 L (130-400) K/uL MPV 10.2 (7.4-10.4) fL Immature Gran % (Auto) 0.4 % Neut % (Auto) 73.2 % Lymph % (Auto) 20.6 % [place] % (Auto) 5.4 % Eos % (Auto) 0.4 % Baso % (Auto) 0.0 % Immature Gran # (Auto) 0.01 (0.00-0.02) K/uL Neut # (Auto) 1.63 (1.4-6.5) K/uL Lymph # (Auto) 0.46 L (1.2-3.4) K/uL [place] # (Auto) 0.12 (0.11-0.59) K/uL Eos # (Auto) 0.01 (0-0.5) K/uL Baso # (Auto) 0.00 (0-0.2) K/uL PT INR APTT PTT Ratio Sodium 143 (136-145) mmol/L Potassium 3.7 (3.5-5.1) mmol/L Chloride 111 H (98-107) mmol/L Carbon Dioxide 28 (21-32) mmol/L Anion Gap 4.0 (3-11) BUN 11 (7-18) mg/dl Creatinine 0.91 (0.6-1.2) mg/dl Est Cr Clr Drug Dosing 82.9 ml/min Est GFR ( Amer) 91.5 Est GFR (Non-Af Amer) 78.9 BUN/Creatinine Ratio 12.4 (10-20) Glucose 79 (70-99) mg/dl Estimat Average Glucose 103 mg/dl Hemoglobin A1c 5.2 (4.5-5.6) % Calcium 8.2 L (8.5-10.1) mg/dl Total Bilirubin 0.8 (0.2-1) mg/dl AST 14 L (15-37) U/L ALT 27 (12-78) U/L Alkaline Phosphatase 51 (45-117) U/L Total Protein 5.7 L (6.4-8.2) gm/dl Albumin 2.7 L (3.4-5.0) gm/dl Globulin 3.0 (2.5-4.0) gm/dl Albumin/Globulin Ratio 0.9 (0.9-2) Triglycerides 264 H (0-150) mg/dl Cholesterol 187 (0-200) mg/dl LDL Cholesterol, Calc 50 mg/dl VLDL Cholesterol, Calc 53 mg/dl HDL Cholesterol 84 mg/dl Cholesterol/HDL Ratio 2 Lipase 191 (73-393) U/L 08/23/19 Range/Units 11:46 WBC 2.47 L (4.8-10.8) K/uL RBC 4.14 L (4.2-5.4) M/uL Hgb 11.3 L (12.0-16.0) g/dL Hct 35.4 L (37-47) % MCV 85.5 (80-100) fL MCH 27.3 (25-34) pg MCHC 31.9 L (32-36) g/dL RDW Std Deviation 45.2 (36.4-46.3) fL RDW Coeff of Nikkie 14.7 H (11.5-14.5) % Plt Count 61 L (130-400) K/uL MPV 10.4 (7.4-10.4) fL Immature Gran % (Auto) 0.0 % Neut % (Auto) 47.0 % Lymph % (Auto) 44.5 % [place] % (Auto) 7.7 % Eos % (Auto) 0.8 % Baso % (Auto) 0.0 % Immature Gran # (Auto) 0.00 (0.00-0.02) K/uL Neut # (Auto) 1.16 L (1.4-6.5) K/uL Lymph # (Auto) 1.10 L (1.2-3.4) K/uL [place] # (Auto) 0.19 (0.11-0.59) K/uL Eos # (Auto) 0.02 (0-0.5) K/uL Baso # (Auto) 0.00 (0-0.2) K/uL PT INR APTT PTT Ratio Sodium (136-145) mmol/L Potassium (3.5-5.1) mmol/L Chloride (98-107) mmol/L Carbon Dioxide (21-32) mmol/L Anion Gap (3-11) BUN (7-18) mg/dl Creatinine (0.6-1.2) mg/dl Est Cr Clr Drug Dosing ml/min Est GFR ( Amer) Est GFR (Non-Af Amer) BUN/Creatinine Ratio (10-20) Glucose (70-99) mg/dl Estimat Average Glucose mg/dl Hemoglobin A1c (4.5-5.6) % Calcium (8.5-10.1) mg/dl Total Bilirubin (0.2-1) mg/dl AST (15-37) U/L ALT (12-78) U/L Alkaline Phosphatase (45-117) U/L Total Protein (6.4-8.2) gm/dl Albumin (3.4-5.0) gm/dl Globulin (2.5-4.0) gm/dl Albumin/Globulin Ratio (0.9-2) Triglycerides (0-150) mg/dl Cholesterol (0-200) mg/dl LDL Cholesterol, Calc mg/dl VLDL Cholesterol, Calc mg/dl HDL Cholesterol mg/dl Cholesterol/HDL Ratio Lipase (73-393) U/L Medications Administered Current Inpatient Medications Heparin Sodium (Porcine) (Heparin Sod 100 Unit/Ml Flush) 5 ml FLUSH PRN PRN PRN Reason: Flush Stop: 09/22/19 17:49 Last Admin: 08/23/19 22:45 Dose: 5 ml Documented by: Acetaminophen (Ofirmev) 1,000 mg in 100 mls @ 400 mls/hr IV Q8H PRN PRN Reason: Pain Stop: 08/26/19 06:31 Last Infusion: 08/23/19 17:31 Dose: Infused Documented by: Sodium Chloride (Nss 1000ml) 1,000 mls @ 80 mls/hr IV .[id number] JAZ Stop: 09/23/19 00:00 Last Admin: 08/23/19 23:47 Dose: 80 mls/hr Documented by: Promethazine HCl 6.25 mg/ (Sodium Chloride) 50.25 mls @ 201 mls/hr IV Q6H PRN PRN Reason: Nausea And Vomiting Stop: 09/23/19 09:15 Last Infusion: 08/24/19 10:30 Dose: Infused Documented by: Ioversol (Optiray 320 100ml) 94 ml IV ONCE PRN PRN Reason: Interaction Checking Stop: 08/27/19 02:27 Last Admin: 08/23/19 02:28 Dose: 94 ml Documented by: Morphine Sulfate (Morphine Sulfate) 2 mg IV Q3H PRN PRN Reason: Pain Stop: 09/06/19 06:31 Last Admin: 08/24/19 07:49 Dose: 2 mg Documented by: Pantoprazole Sodium (Protonix) 40 mg PO QAM [facility] Stop: 09/22/19 19:44 Last Admin: 08/24/19 07:53 Dose: 40 mg Documented by: Prednisone (Prednisone) 60 mg PO DAILY [facility] Stop: 09/22/19 14:29 Last Admin: 08/24/19 07:52 Dose: 60 mg Documented by: Resident Activity Tracking Resident Involvement: Resident Care Provided Care Provided: Adult Hospital Medicine
[2019-08-24] MEDS: PROMETHAZINE HCL 6.25 MG in SODIUM CHLORIDE 0.9% 50 ML IV PRN (10:05)
[2019-08-24] MEDS: SODIUM CHLORIDE 0.9% 1000ML 1,000 ML IV SCH (12:23)
[2019-08-24] MEDS: ACETAMINOPHEN 1,000 MG/100 ML VIAL IV PRN (12:25)
--- NOTE | 2019-08-24 13:45 | Anesthesiology Consultation ---
Date of Service August 24, 2019 Assessment & Plan (1) Encounter for pre-operative examination: Chart Review Chart Review: Acceptable Risk for Surgery and Patient NOT seen in Pre Admission Testing Consults Requested none History Surgery Operation Date: 08/24/19 17:25 Proposed Procedures p Ileoscopy - Dustin Traylor Height/Weight Height: 5 ft 8 in Weight: 69.4 kg Allergies Allergy/AdvReac Type Severity Reaction Status Date / Time bee venom protein (honey bee) Allergy Severe anaphylaxis Verified 08/22/19 22:29 clarithromycin Allergy Severe breathing Verified 08/22/19 22:29 problems adhesive Allergy Intermediate itching, Verified 08/22/19 22:29 swelling hydromorphone Allergy Intermediate RASH Verified 08/22/19 22:29 latex Allergy Intermediate itching, Verified 08/22/19 22:29 swelling ondansetron Allergy Intermediate itching Verified 08/22/19 22:29 peanut Allergy Intermediate Rash and Verified 08/22/19 22:29 itchiness albuterol Allergy Mild rash Verified 08/22/19 22:29 hydroxyzine Allergy Mild itching Verified 08/22/19 22:29 oxycodone Allergy Mild itching Verified 08/22/19 22:29 ketorolac Allergy Unknown unknown Verified 08/22/19 22:29 shellfish derived Allergy Verified 08/24/19 13:34 barium sulfate AdvReac Intermediate diarrhea Verified 08/22/19 22:29 pregabalin AdvReac Intermediate delusions Verified 08/22/19 22:29 sucralose AdvReac Mild Nausea Verified 08/22/19 22:29 [From Splenda (sucralose)] Lobster AdvReac Intermediate nausea, Uncoded 08/22/19 22:29 diarrhea Medications Home Medications Medication Instructions Recorded Confirmed Last Taken fluticasone propionate 50 2 sprays INTNAS DAILY PRN 05/08/18 08/22/19 Unknown mcg/actuation nasal spray,suspension dextromethorphan-guaifenesin 1 tab PO Q12H PRN 08/04/18 08/22/19 Unknown [Mucinex DM] pantoprazole [Protonix] 40 mg PO BID PRN 08/04/18 08/22/19 Unknown primidone 100 mg PO BID 08/04/18 08/22/19 07/17/19 08:00 Solu-Medrol Solution 0 mg IV UD 11/15/18 08/22/19 Unknown acetaminophen [Tylenol] 650 mg PO UD PRN 11/15/18 08/22/19 Unknown diphenhydramine HCl [Benadryl] 50 mg PO UD PRN 11/15/18 08/22/19 Unknown epinephrine [EpiPen] 0.3 mg IM UD PRN 11/15/18 08/22/19 Unknown ergocalciferol (vitamin D2) 50,000 unit PO WK 11/15/18 08/22/19 07/15/19 [Vitamin D2] fremanezumab-vfrm 225 mg SUBCUT MONTHLY 11/15/18 08/22/19 07/14/19 immune globul G-gly-IgA avg 46 25 g IV Q4WK 11/15/18 08/22/19 07/13/19 [Gamunex-C] acetaminophen-caffeine [Excedrin 0 tab PO Q6H PRN 07/17/19 08/22/19 Unknown Tension Headache] primidone 50 mg PO .MIDDAY 07/17/19 08/22/19 07/17/19 ustekinumab [Stelara] 90 mg SUBCUT .[id number] 07/17/19 08/22/19 06/12/19 Active Medications Generic Name Dose Route Start Last Admin Trade Name Freq PRN Reason Stop Dose Admin Heparin Sodium (Porcine) 5 ml 08/23/19 17:50 08/23/19 22:45 Heparin Sod 100 Unit/Ml Flush FLUSH 09/22/19 17:49 5 ml PRN PRN Administration Flush Acetaminophen 1,000 mg in 100 mls @ 400 mls/hr 08/23/19 06:32 08/24/19 12:59 Ofirmev IV 08/26/19 06:31 Infused Q8H PRN Infusion Pain Sodium Chloride 1,000 mls @ 80 mls/hr 08/24/19 00:01 08/24/19 12:23 Nss 1000ml IV 09/23/19 00:00 80 mls/hr .[id number] JAZ Administration Promethazine HCl 6.25 mg/ 50.25 mls @ 201 mls/hr 08/24/19 09:16 08/24/19 10:30 Sodium Chloride IV 09/23/19 09:15 Infused Q6H PRN Infusion Nausea And Vomiting Ioversol 94 ml 08/23/19 02:28 08/23/19 02:28 Optiray 320 100ml IV 08/27/19 02:27 94 ml ONCE PRN Administration Interaction Checking Morphine Sulfate 2 mg 08/23/19 06:32 08/24/19 07:49 Morphine Sulfate IV 09/06/19 06:31 2 mg Q3H PRN Administration Pain Pantoprazole Sodium 40 mg 08/23/19 19:45 08/24/19 07:53 Protonix PO 09/22/19 19:44 40 mg QAM JAZ Administration Prednisone 60 mg 08/23/19 14:30 08/24/19 07:52 Prednisone PO 09/22/19 14:29 60 mg DAILY JAZ Administration NPO Date Last Intake of Fluids: 08/23/19 Time Last Intake of Fluids: 23:30 Date Last Intake of Solids: 08/23/19 Time Last Intake of Solids: 23:30 Past Medical History Medical History Anxiety (Chronic) Colon dysplasia (Chronic) Colorectal cancer (Acute) Crohn disease (Acute) CVID (common variable immunodeficiency) Depression (Chronic) Endometriosis (Chronic) Endometriosis (Acute) Fibromyalgia (Chronic) Fibromyalgia (Acute) History of iron deficiency anemia (Chronic) Ileostomy in place (Chronic) Interstitial cystitis (Chronic) Interstitial cystitis (Acute) Migraine (Chronic) Migraines (Acute) Migraines Raynauds disease (Chronic) Raynauds disease (Acute) Thrombocytopenia (Chronic) Past Family History Family History Father Coronary heart disease Mother Graves disease Past Surgical History Surgical History H/O colonoscopy (Chronic) H/O esophagogastroduodenoscopy (Chronic) H/O laparoscopy (Chronic) "biopsy for endometriosis" H/O sinus surgery (Acute) H/O: hysterectomy (Acute) H/O: hysterectomy Ileostomy in place (Acute) S/P appendectomy (Chronic) S/P hysterectomy (Chronic) Social History Smoking Status: Never smoker Hx Alcohol Use: Yes alcohol intake frequency: holidays/special occasions only Hx Substance Use: No Physical Exam Vital Signs Last Vital Signs Temp 36.9 C 08/24/19 13:28 Pulse 83 08/24/19 13:28 Resp 16 08/24/19 13:28 BP 119/88 08/24/19 13:28 Pulse Ox 97 08/24/19 13:28 Testing Laboratory Results 08/24/19 05:46 08/24/19 05:46 PT 10.3 Seconds (9.0-12.0) 08/24/19 07:01 INR 1.0 (0.9-1.1) 08/24/19 07:01 APTT 22.2 Seconds (21.0-31.0) 08/24/19 07:01 Hemoglobin A1c 5.2 % (4.5-5.6) 08/23/19 11:46 Urine Color Yellow 08/22/19 21:37 Urine Appearance Clear (Clear) 08/22/19 21:37 Urine pH 5.0 (4.5-7.5) 08/22/19 21:37 Ur Specific [place] 1.022 (1.000-1.030) 08/22/19 21:37 Urine Protein Negative (Negative) 08/22/19 21:37 Urine Glucose (UA) Negative (Negative) 08/22/19 21:37 Urine Ketones Negative (Negative) 08/22/19 21:37 Urine Nitrite Negative (Negative) 08/22/19 21:37 Ur Leukocyte Esterase Negative (Negative) 08/22/19 21:37 08/22/19 21:37 POC Ur Test NEG
[2019-08-24] MEDS ORDERED: LIDOCAINE HCL 2% 2 ML VIAL/AMP(20MG/ML) INFIL ONE (13:48)
[2019-08-24] MEDS ORDERED: PROPOFOL IV EMULSION 10 MG/ML 20 ML VIAL IV ONE ×2 (13:48→14:26)
[2019-08-24] MEDS ORDERED: ATROPINE SULFATE 0.1 MG/ML 10ML SYR IV PRN (13:49)
--- NOTE | 2019-08-24 13:55 | History & Physical Report ---
Date of Service August 24, 2019 History of Present Illness Chief Complaint: Crohn's , abd pain Primary Care Provider: Jeri Molina DO For ileoscopy Allergies Allergy/AdvReac Type Severity Reaction Status Date / Time bee venom protein (honey bee) Allergy Severe anaphylaxis Verified 08/22/19 22:29 clarithromycin Allergy Severe breathing Verified 08/22/19 22:29 problems adhesive Allergy Intermediate itching, Verified 08/22/19 22:29 swelling hydromorphone Allergy Intermediate RASH Verified 08/22/19 22:29 latex Allergy Intermediate itching, Verified 08/22/19 22:29 swelling ondansetron Allergy Intermediate itching Verified 08/22/19 22:29 peanut Allergy Intermediate Rash and Verified 08/22/19 22:29 itchiness albuterol Allergy Mild rash Verified 08/22/19 22:29 hydroxyzine Allergy Mild itching Verified 08/22/19 22:29 oxycodone Allergy Mild itching Verified 08/22/19 22:29 ketorolac Allergy Unknown unknown Verified 08/22/19 22:29 shellfish derived Allergy Verified 08/24/19 13:34 barium sulfate AdvReac Intermediate diarrhea Verified 08/22/19 22:29 pregabalin AdvReac Intermediate delusions Verified 08/22/19 22:29 sucralose AdvReac Mild Nausea Verified 08/22/19 22:29 [From Splenda (sucralose)] Lobster AdvReac Intermediate nausea, Uncoded 08/22/19 22:29 diarrhea Home Medications Home Medications Medication Instructions Recorded Confirmed Type fluticasone propionate 50 2 sprays INTNAS DAILY PRN 05/08/18 08/22/19 History mcg/actuation nasal spray,suspension dextromethorphan-guaifenesin 1 tab PO Q12H PRN 08/04/18 08/22/19 History [Mucinex DM] pantoprazole [Protonix] 40 mg PO BID PRN 08/04/18 08/22/19 History primidone 100 mg PO BID 08/04/18 08/22/19 History Solu-Medrol Solution 0 mg IV UD 11/15/18 08/22/19 History acetaminophen [Tylenol] 650 mg PO UD PRN 11/15/18 08/22/19 History diphenhydramine HCl [Benadryl] 50 mg PO UD PRN 11/15/18 08/22/19 History epinephrine [EpiPen] 0.3 mg IM UD PRN 11/15/18 08/22/19 History ergocalciferol (vitamin D2) 50,000 unit PO WK 11/15/18 08/22/19 History [Vitamin D2] fremanezumab-vfrm 225 mg SUBCUT MONTHLY 11/15/18 08/22/19 History immune globul G-gly-IgA avg 46 25 g IV Q4WK 11/15/18 08/22/19 History [Gamunex-C] acetaminophen-caffeine [Excedrin 0 tab PO Q6H PRN 07/17/19 08/22/19 History Tension Headache] primidone 50 mg PO .MIDDAY 07/17/19 08/22/19 History ustekinumab [Stelara] 90 mg SUBCUT .[id number] 07/17/19 08/22/19 History Past Med/Surg History Medical History Anxiety (Chronic) Colon dysplasia (Chronic) Colorectal cancer (Acute) Crohn disease (Acute) CVID (common variable immunodeficiency) Depression (Chronic) Endometriosis (Chronic) Endometriosis (Acute) Fibromyalgia (Chronic) Fibromyalgia (Acute) History of iron deficiency anemia (Chronic) Ileostomy in place (Chronic) Interstitial cystitis (Chronic) Interstitial cystitis (Acute) Migraine (Chronic) Migraines (Acute) Migraines Raynauds disease (Chronic) Raynauds disease (Acute) Thrombocytopenia (Chronic) Surgical History H/O colonoscopy (Chronic) H/O esophagogastroduodenoscopy (Chronic) H/O laparoscopy (Chronic) "biopsy for endometriosis" H/O sinus surgery (Acute) H/O: hysterectomy (Acute) H/O: hysterectomy Ileostomy in place (Acute) S/P appendectomy (Chronic) S/P hysterectomy (Chronic) Family History Father Coronary heart disease Mother Graves disease Social History Preferred Language: Moldovan Communication Ability: Effective [employer] Department Chair Required: No Beliefs That Will Affect Care: Mormonism Mormonism Beliefs: anabaptist Current Living Situation: Spouse Feels Safe at Home: Yes Smoking Status: Never smoker Hx Alcohol Use: Yes Hx Substance Use: No Physical Exam Constitutional: well developed and well nourished ENMT: Stained teeth Respiratory: normal respiratory effort Cardiovascular: Rate/Rhythm: regular rate and regular rhythm Gastrointestinal (Abdomen): Ileostomy Results & Data Vital Signs (Past 12 Hours) Vital Signs Temp Pulse Resp BP Pulse Ox 08/24/19 13:28 36.9 C 83 16 119/88 97 08/24/19 07:29 36.4 C L 67 19 128/84 67 L
[2019-08-24] MEDS ORDERED: SODIUM CHLORIDE 0.9% 1000ML 1,000 ML IV SCH (14:00)
--- NOTE | 2019-08-24 14:30 | GI REPORT ---
Patient Name: Nya Geronimo Procedure Date: 08/24/2019 1:48 PM Date of : 1980 Admit Type: Inpatient Age: 39 Gender: Female Attending MD: Dustin Traylor MD Procedure: Ileoscopy Providers: Dustin Traylor MD Referring MD: Edmundo Arteaga Indications: Inflammatory bowel disease, Abdominal pain Medicines: Propofol total dose 200 mg IV, Lidocaine 40 mg IV Complications: No immediate complications. Estimated Blood Loss: Estimated blood loss: none. Procedure: Pre-Anesthesia Assessment: - Prior to the procedure, a History and Physical was performed, and patient medications, allergies and sensitivities were reviewed. The patient's tolerance of previous anesthesia was reviewed. - The risks and benefits of the procedure and the sedation options and risks were discussed with the patient. All questions were answered and informed consent was obtained. After I obtained informed consent, the scope was passed under direct vision. Throughout the procedure, the patient's blood pressure, pulse, and oxygen saturations were monitored continuously. The Endoscope was introduced through the ileostomy and advanced to the mid ileum. The ileoscopy was performed without difficulty. The patient tolerated the procedure well. The quality of the bowel preparation was good. Findings: The area at 60 cm proximal to the stoma appeared normal. Estimated blood loss: none. Impression: - The examined portion of the ileum was normal. - No specimens collected. Recommendation: - [facility]. Dustin Traylor M.D. Dustin Traylor MD 08/24/2019 2:29:50 PM This report has been signed electronically. Note Initiated On: 08/24/2019 1:48 PM Number of Addenda: 0 I attest to the content of the Intraoperative Record and orders documented therein, exceptions below {[id number]}
--- NOTE | 2019-08-24 15:14 | Progress Note ---
DATE: 08/24/2019 SUBJECTIVE: The patient was admitted with abdominal pain and underwent an ileoscopy today, this was carried to 60 cm. The prep was good and there were no signs of active Crohn's disease. PHYSICAL EXAMINATION ABDOMEN: Soft, still a little tender. The ileostomy is healthy looking and there are some laparoscopic scars that are well healed. IMPRESSION: The patient has abdominal pain, but there is no active Crohn's disease on CT scan or ileoscopy. PLAN: At this point, I plan on stopping her prednisone just in case it may be contributing to the elevated lipase that she presented with. Her pancreas was normal and I plan on getting a small bowel x-ray to make sure there are no signs of any trapping of bowel that could have caused a partial bowel obstruction to cause her pain. The patient can have full liquids now with the x-rays going to be done tomorrow. If the x-ray can be done today, then she can have full liquids following the x-ray.
--- NOTE | 2019-08-24 15:23 | Anesthesiology Progress Note ---
Date of Service August 24, 2019 Anesthesia Post Procedure Vital Signs Vital Signs: Temp Pulse Resp BP Pulse Ox 08/24/19 14:55 90 14 128/87 97 08/24/19 14:40 87 16 107/85 97 08/24/19 14:25 83 16 99/72 L 96 08/24/19 13:28 36.9 C 83 16 119/88 97 08/24/19 07:29 36.4 C L 67 19 128/84 67 L 08/23/19 23:29 36.8 C 83 16 124/84 93 Pain Intensity Abdomen: Pain Intensity: 8 Transfer of Care Handoff Completed per policy Notes Mental Status: alert / awake / arousable Patient Amnestic to Procedure: Yes Nausea / Vomiting: adequately controlled Pain: adequately controlled Airway Patency, RR, SpO2: stable & adequate BP & HR: stable & adequate Hydration State: stable & adequate Anesthetic Complications: no major complications apparent and Pt Satisfied with anesthetic care
--- NOTE | 2019-08-24 17:48 | Billing Data ---
Date of Service August 24, 2019 Coding Level of Care Code 15749 Subseq Hosp Care Lvl 2
[2019-08-25] MEDS: ACETAMINOPHEN 1,000 MG/100 ML VIAL IV PRN ×2 (00:47→15:49)
[2019-08-25] MEDS: SODIUM CHLORIDE 0.9% 1000ML 1,000 ML IV SCH ×2 (03:08→14:46)
[2019-08-25 06:10] LABS: Hemoglobin 11.3 g/dL (12.0-16.0); Mean Corpuscular Hgb Conc 31.4 g/dL (32-36); Mean Corpuscular Volume 85.9 fL (80-100); RDW Coefficient of Variation 14.5 % (11.5-14.5); RDW Standard Deviation 44.5 fL (36.4-46.3); Red Blood Count 4.19 M/uL (4.2-5.4); White Blood Count 2.28 K/uL (4.8-10.8)
[2019-08-25 06:13] LABS: Mean Platelet Volume 10.9 fL (7.4-10.4); Platelet Count 66 K/uL (130-400)
[2019-08-25 06:36] LABS: BUN Creatinine Ratio 10.6 (10-20); Calcium 8.3 mg/dl (8.5-10.1); Creatinine Clr Calc Pharmacy 88.7 ml/min; Est GFR (African American) 99.3; Est GFR (Non-African American) 85.7; Potassium 3.5 mmol/L (3.5-5.1)
[2019-08-25 06:52] LABS: Eosinophils # (auto) 0.02 K/uL (0-0.5); Eosinophils % (auto) 0.9 %; Lymphocytes # (auto) 0.82 K/uL (1.2-3.4); Monocytes % (auto) 8.8 %; Neutrophils # (auto) 1.24 K/uL (1.4-6.5); Neutrophils % (auto) 54.3 %
--- NOTE | 2019-08-25 07:42 | Hospitalist Progress Note ---
Date of Service August 25, 2019 Assessment & Plan (1) Pancreatitis: 39-year-old female with history of Crohn's disease, CVID, endometriosis, fibromyalgia, migraines presents with abdominal pain. Was found to have lipase of 1568. She has been experiencing symptoms of Crohn's flare for proximally 3 weeks and has been on steroids. Pancreatitis Initially on presentation patient had a lipase of 1568, this resolved fairly quickly repeat lipase was 191. On admission she had diffuse abdominal pain pancreatitis was certainly a possibility. However appears to have resolved pretty quickly and she is currently asymptomatic,Steroids listed as possible cause of pancreatitis, patient currently treated with steroids for Crohn's flare, a small cholelith could also explain this presentation.Initially kept n.p.o., holding home medications, repeat Lipase was 191, Pancreatitis appears to have resolved, will re-start diet with full liquids and advance as tolerated.Lipids/Triglycerides ordered for hypertriglyceridemia as culprit, but no significantly elevations, Triglycerides were mildly elevated but not significantly to be etiology. Since on recent prolonged course of steriods will check A1C to see if steroid induced DM causing dehydration through osmotic diuresis leading to dehydration as possible etiology.no abscess or timmy- inflammatory process seen on CT Abd.Gastroenterology was consulted and performed an ileoscopy yesterday without significant findings. Patient was supposed to be for a small bowel follow-through today however could not tolerate the contrast secondary to a presumed barium enema supposedly causing her explosive diarrhea. Contacted patient's primary GI down in [facility] for further recommendations, they recommended evaluate the patient for a gallstone that may have passed, antibiotics, and pain control. They also instructed the patient to can maintain her currently scheduled follow-up on 09/02 Follow-up gallbladder ultrasound Resume prolonged prednisone taper at 40 mg p.o. Started on empiric metronidazole For presumed GI infection Control pain -morphine 2 mg every 3 hours -IV Tylenol thousand milligrams every 8 hours, Will transition to p.o. Consulted gastroenterology following recs Crohn's flare Patient symptoms have been going on for approximately 3 weeks she has had 2 steroid tapers during that time without significant improvement in her symptoms. Given the duration of her symptoms and lack of meaningful improvement this is most consistent with a Crohn's flare. For her Crohn's disease which she normally receives Stelara every 8 weeks, not due anytime soon, reports receiving approximately 2 weeks ago. -Resume steroids prednisone 40 mg p.o. 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 monthly Hold primidone Significant history of allergies PRN Benadryl States that she is tolerated morphine in the past FENa: Regular diet Code Status: Full code DVT PPX: SCDs ambulation PT/OT: Not indicated Dispo: Home pending clinical improvement Beka Cao MD PGY 2, FCM This chart was completed utilizing [employer] voice recognition software. Grammatical errors, random word insertions, pronoun errors, and in complete sentences are an occasional consequence of the system. Any questions or concerns about the content, text, or information contained within the body of this dictation should be addressed directly to the physician for clarification. (2) CVID (common variable immunodeficiency): (3) Endometriosis: (4) Fibromyalgia: (5) Migraine: (6) Raynauds disease: (7) Anxiety: (8) Depression: Supervising Physician Co-Signing Physician Notes I personally examined the patient and verified all vargas points of history and ex am, discussed case, and agree with decision making with Dr Cao. Still having ongoing abdominal pain. Dr. Cao discussed case with her gastroenterology team at [place] who offered some suggestions. Discussed this with patient. She was amenable. Revisited later and while she still does have some pain, she was able to eat lunch and dinner well. She notes that she was so hungry that even though she tried to go slow she ate lunch quite quickly and had a little bit of a stomachache afterwards, but she expected it. Now she is eaten chicken beings and asked for an order of carrots for dinner, as well as ate ice cream and so far things seem to be going well. She did premedicate with Phenergan, but she does not appear to have any nausea now. Vitals noted, in general she is awake and alert pleasant no distress. HEENT normocephalic atraumatic mucous membranes moist. Breathing unlabored no accessory muscle use good effort. Abdomen soft nondistended mild tenderness but no guarding, no rebound, no rigidity. Skin shows no rashes no pallor or icterus. Abdominal painstill seems most likely intestinal. Ultrasound checked to evaluate for any sort of biliary pathology given that she did have a transiently elevated lipase, but as expected it was normal outside of a 5 mm polyp. She still could have theoretically passed a grain of sand sized gallstone, but without any residual biliary findings certainly it would be not worth her while to pursue cholecystectomy for this. More than likely the elevated lipase was a false positive. She does seem to be suffering from some sort of intestinal pain, no noted ileitis on scope, but seems to be improving somewhat with Flagyl and steroidsat least able to tolerate diet well. Continue current care and follow; slow steroid taper. Gallbladder polypsmall enough to only warrant repeat ultrasound in about a year. Otherwise as above Subjective Patient sitting upright in bed this morning in no acute distress. Patient reported having a difficult night with increasing pain bilateral lower quadrants overnight. Patient was unable to tolerate the small bowel follow-through this morning secondary to having a barium allergy. This does not represent a true allergy and she has explosive diarrhea with barium administration. Secondary to patient's prior friends contacted her primary GI in [facility]. After speaking with them they had recommended performing a gallbladder ultrasound, providing adequate pain control, and treating with antibiotics for presumed colitis or smoldering infection. Relayed this information to the patient she was agreeable. Explained to the patient that the longer she stays in the hospital the more likely it is that she catches an iatrogenic infection, and encouraged the patient to consider thinking about discharge. Patient was resistant. Acute concerns related to pain, discharge planning, all questions answered. Physical Exam Physical Exam: General: Middle-aged female lying in bed in no acute distress HEENT: Normocephalic atraumatic Neck: Normal to visual inspection, trachea midline, no significant JVD Cardiac: Clear to auscultation bilaterally without significant murmurs, rubs, gallops, normal S1 normal S2. Negative calf tenderness, negative pedal edema. Respiratory: Clear to auscultation bilaterally with symmetrical chest expansion I did not appreciate significant wheezes, rales, rhonchi GI: Bowel sounds present, soft, nondistended, endorsing tenderness in the right lower quadrant in the left lower quadrant, no rebound, no guarding Neuro: Alert and oriented x4 Psych: Reserved, guarded, emotionally labile Results & Data Vital Signs (Past 12 Hours) Vital Signs Temp Pulse Resp BP BP Pulse Ox 08/25/19 07:14 36.6 C 61 16 119/81 98 08/25/19 03:30 36.4 C L 59 L 16 117/81 96 08/24/19 23:20 37.0 C 65 16 115/83 97 08/24/19 22:21 36.5 C 105 H 16 126/79 98 Laboratory Results 08/25/19 08/25/19 Range/Units 05:18 05:18 WBC 2.28 L (4.8-10.8) K/uL RBC 4.19 L (4.2-5.4) M/uL Hgb 11.3 L (12.0-16.0) g/dL Hct 36.0 L (37-47) % MCV 85.9 (80-100) fL MCH 27.0 (25-34) pg MCHC 31.4 L (32-36) g/dL RDW Std Deviation 44.5 (36.4-46.3) fL RDW Coeff of Nikkie 14.5 (11.5-14.5) % Plt Count 66 L (130-400) K/uL MPV 10.9 H (7.4-10.4) fL Immature Gran % (Auto) 0.0 % Neut % (Auto) 54.3 % Lymph % (Auto) 36.0 % [place] % (Auto) 8.8 % Eos % (Auto) 0.9 % Baso % (Auto) 0.0 % Immature Gran # (Auto) 0.00 (0.00-0.02) K/uL Neut # (Auto) 1.24 L (1.4-6.5) K/uL Lymph # (Auto) 0.82 L (1.2-3.4) K/uL [place] # (Auto) 0.20 (0.11-0.59) K/uL Eos # (Auto) 0.02 (0-0.5) K/uL Baso # (Auto) 0.00 (0-0.2) K/uL Sodium 142 (136-145) mmol/L Potassium 3.5 (3.5-5.1) mmol/L Chloride 109 H (98-107) mmol/L Carbon Dioxide 30 (21-32) mmol/L Anion Gap 3.0 (3-11) BUN 9 (7-18) mg/dl Creatinine 0.85 (0.6-1.2) mg/dl Est Cr Clr Drug Dosing 88.7 ml/min Est GFR ( Amer) 99.3 Est GFR (Non-Af Amer) 85.7 BUN/Creatinine Ratio 10.6 (10-20) Glucose 86 (70-99) mg/dl Calcium 8.3 L (8.5-10.1) mg/dl Medications Administered Current Inpatient Medications Heparin Sodium (Porcine) (Heparin Sod 100 Unit/Ml Flush) 5 ml FLUSH PRN PRN PRN Reason: Flush Stop: 09/22/19 17:49 Last Admin: 08/23/19 22:45 Dose: 5 ml Documented by: Acetaminophen (Ofirmev) 1,000 mg in 100 mls @ 400 mls/hr IV Q8H PRN PRN Reason: Pain Stop: 08/26/19 06:31 Last Infusion: 08/25/19 01:04 Dose: Infused Documented by: Sodium Chloride (Nss 1000ml) 1,000 mls @ 80 mls/hr IV .[id number] JAZ Stop: 09/23/19 00:00 Last Admin: 08/25/19 03:08 Dose: 80 mls/hr Documented by: Promethazine HCl 6.25 mg/ (Sodium Chloride) 50.25 mls @ 201 mls/hr IV Q6H PRN PRN Reason: Nausea And Vomiting Stop: 09/23/19 09:15 Last Infusion: 08/24/19 10:30 Dose: Infused Documented by: Sodium Chloride (Nss 1000ml) 1,000 mls @ 15 mls/hr IV .Q24H JAZ Stop: 08/25/19 13:59 Last Admin: 08/24/19 16:03 Dose: Not Given Documented by: Metronidazole (Flagyl) 500 mg in 100 mls @ 100 mls/hr IV Q8H JAZ Stop: 09/04/19 10:59 Last Infusion: 08/25/19 12:25 Dose: Infused Documented by: Ioversol (Optiray 320 100ml) 94 ml IV ONCE PRN PRN Reason: Interaction Checking Stop: 08/27/19 02:27 Last Admin: 08/23/19 02:28 Dose: 94 ml Documented by: Morphine Sulfate (Morphine Sulfate) 2 mg IV Q3H PRN PRN Reason: Pain Stop: 09/06/19 06:31 Last Admin: 08/25/19 08:05 Dose: 2 mg Documented by: Pantoprazole Sodium (Protonix) [facility] [place]: 09/22/19 19:44 Last Admin: 08/25/19 08:43 Dose: 40 mg Documented by: Resident Activity Tracking Resident Involvement: Resident Care Provided Care Provided: Adult [facility]
--- NOTE | 2019-08-25 07:46 | Discharge Summary ---
Date of Service August 25, 2019 Admission HPI Per Admitting Provider For ileoscopy Discharge Data Allergies Allergy/AdvReac Type Severity Reaction Status Date / Time bee venom protein (honey bee) Allergy Severe anaphylaxis Verified 08/22/19 22:29 clarithromycin Allergy Severe breathing Verified 08/22/19 22:29 problems adhesive Allergy Intermediate itching, Verified 08/22/19 22:29 swelling hydromorphone Allergy Intermediate RASH Verified 08/22/19 22:29 latex Allergy Intermediate itching, Verified 08/22/19 22:29 swelling ondansetron Allergy Intermediate itching Verified 08/22/19 22:29 peanut Allergy Intermediate Rash and Verified 08/22/19 22:29 itchiness albuterol Allergy Mild rash Verified 08/22/19 22:29 hydroxyzine Allergy Mild itching Verified 08/22/19 22:29 oxycodone Allergy Mild itching Verified 08/22/19 22:29 ketorolac Allergy Unknown unknown Verified 08/22/19 22:29 shellfish derived Allergy Verified 08/24/19 13:34 barium sulfate AdvReac Intermediate diarrhea Verified 08/22/19 22:29 pregabalin AdvReac Intermediate delusions Verified 08/22/19 22:29 sucralose AdvReac Mild Nausea Verified 08/22/19 22:29 [From Splenda (sucralose)] Lobster AdvReac Intermediate nausea, Uncoded 08/22/19 22:29 diarrhea Consultations 08/23/19 04:28 ED Decision to Admit Stat 08/23/19 06:32 Consult Gastroenterology Routine Procedures Performed Operation Date: 08/24/19 17:25 Actual Procedures p Ileoscopy - Dustin Traylor Ordered Studies 08/22/19 23:03 CT abd pelvis oral and IV con Urgent 08/25/19 07:30 FL small bowel study Routine Hospital Course (1) Pancreatitis: 39-year-old female with history of Crohn's disease, CVID, endometriosis, fibromyalgia, migraines presents with abdominal pain. Was found to have lipase of 1568. She has been experiencing symptoms of Crohn's flare for proximally 3 weeks and has been on steroids. Pancreatitis Initially on presentation patient had a lipase of 1568, this resolved fairly quickly repeat lipase was 191. On admission she had diffuse abdominal pain pancreatitis was certainly a possibility. However appears to have resolved pretty quickly and she is currently asymptomatic,Steroids listed as possible cause of pancreatitis, patient currently treated with steroids for Crohn's flare, a small cholelith could also explain this presentation.Initially kept n.p.o., holding home medications, repeat Lipase was 191, Pancreatitis appears to have resolved, will re-start diet with full liquids and advance as tolerated.Lipids/Triglycerides ordered for hypertriglyceridemia as culprit, but no significantly elevations, Triglycerides were mildly elevated but not signif icantly to be etiologySince on recent prolonged course of steriods will check A1C to see if steroid induced DM causing dehydration through osmotic diuresis leading to dehydration as possible etiology.no abscess or timmy-inflammatory process seen on CT Abd. Continue fluids, normal saline 80mls/hr Control pain -morphine 2 mg every 3 hours -IV Tylenol thousand milligrams every 8 hours Consult gastroenterology, appreciate recommendation Crohn's flare Patient symptoms have been going on for approximately 3 weeks she has had 2 steroid tapers during that time without significant improvement in her symptoms. Given the duration of her symptoms and lack of meaningful improvement this is most consistent with a Crohn's flare. For her Crohn's disease which she normally receives Stelara every 8 weeks, not due anytime soon, reports receiving approximately 2 weeks ago. Steroids were held in the setting of a pancreatitis, appears as if her pancreatitis is resolved -Resume steroids prednisone 60 mg p.o. daily Consult GI -Has been n.p.o. overnight patient for ileoscopy today with Dr. 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 monthly Hold primidone Significant history of allergies PRN Doris States that she is tolerated morphine in the past FENa: N.p.o. overnight for procedure Code Status: Full code DVT PPX: SCDs ambulation PT/OT: Not indicated Dispo: Home pending clinical improvement Beka Cao MD PGY 2, FCM This chart was completed utilizing [employer] voice recognition software. Grammatical errors, random word insertions, pronoun errors, and in complete sentences are an occasional consequence of the system. Any questions or concerns about the content, text, or information contained within the body of this dictation should be addressed directly to the physician for clarification. (2) CVID (common variable immunodeficiency): (3) Endometriosis: (4) Fibromyalgia: (5) Migraine: (6) Raynauds disease: (7) Anxiety: (8) Depression: Discharge Plan Discharge Items Reason For Visit: PANCREATITIS, CROHN'S FLARE Medications and DC Order Prescriptions: No Action fluticasone propionate [Flonase Allergy Relief] 50 mcg/actuation spray,suspension 2 sprays INTNAS DAILY PRN (Reason: Congestion) RF: 0 primidone 50 mg Tablet 100 mg PO BID RF: 0 pantoprazole [Protonix] 40 mg Tablet,Delayed Release (Dr/Ec) 40 mg PO BID PRN (Reason: INDIGESTION/HEARTBURN) RF: 0 Mucinex DM 30-600 mg Tablet Extended Release 12 Hr 1 tab PO Q12H PRN (Reason: Congestion) RF: 0 acetaminophen [Tylenol] 325 mg Tablet 650 mg PO UD PRN (Reason: Pain) RF: 0 diphenhydramine HCl [Benadryl] 25 mg Capsule 50 mg PO UD PRN (Reason: PRE-TREAT) RF: 0 ergocalciferol (vitamin D2) [Vitamin D2] 50,000 unit Capsule 50,000 unit PO WK RF: 0 epinephrine [EpiPen] 0.3 mg/0.3 mL Auto-Injector 0.3 mg IM UD PRN (Reason: Allergic Reaction) RF: 0 Gamunex-C 5 gram/50 mL (10 %) Solution 25 g IV Q4WK RF: 0 fremanezumab-vfrm 225 mg/1.5 mL Syringe 225 mg subcut MONTHLY RF: 0 Solu-Medrol Solution 0 mg IV UD RF: 0 primidone 50 mg Tablet 50 mg PO .MIDDAY RF: 0 Excedrin Tension Headache 500-65 mg Tablet 0 tab PO Q6H PRN (Reason: Headache) RF: 0 Stelara 90 mg/mL syringe 90 mg SUBCUT .[id number] RF: 0 Admission Data Admit Date/Time: 08/23/19 05:27 Attending Provider: Edmundo Arteaga Admit Provider: Norberto Mejias Primary Care Provider: Jeri Molina Other Providers: Abner Weir ; Carlos Mccall ; Capo Dumont Other Interventions: Discharge Summary Assessment (RN) Last Done: 08/24/19 14:54
[2019-08-25] MEDS: MoRPHine SULFATE 2 MG/ML CARP IV PRN ×3 (08:05→20:31)
[2019-08-25] MEDS: PANTOprazole 40 MG TAB PO SCH (08:43)
[2019-08-25] MEDS ORDERED: methylPREDNISolone 40 MG in SYRINGE 0 ML IV ONE (11:00)
--- NOTE | 2019-08-25 11:14 | Anesthesiology Progress Note ---
Date of Service August 25, 2019 Anesthesia Post Procedure Vital Signs Vital Signs: Temp Pulse Resp BP BP Pulse Ox 08/25/19 07:14 36.6 C 61 16 119/81 98 08/25/19 03:30 36.4 C L 59 L 16 117/81 96 08/24/19 23:20 37.0 C 65 16 115/83 97 08/24/19 22:21 36.5 C 105 H 16 126/79 98 08/24/19 18:22 37.0 C 104 H 18 130/85 98 08/24/19 17:19 36.7 C 103 H 18 121/75 99 08/24/19 16:23 36.8 C 71 20 143/95 H 97 08/24/19 15:54 36.6 C 68 18 122/86 98 08/24/19 15:27 36.7 C 83 16 130/88 99 08/24/19 14:55 90 14 128/87 97 08/24/19 14:40 87 16 107/85 97 08/24/19 14:25 83 16 99/72 L 96 08/24/19 13:28 36.9 C 83 16 119/88 97 Pain Intensity Abdomen: Pain Intensity: 8 Notes Mental Status: alert / awake / arousable and participated in evaluation Patient Amnestic to Procedure: Yes Nausea / Vomiting: adequately controlled Pain: adequately controlled Airway Patency, RR, SpO2: stable & adequate BP & HR: stable & adequate Hydration State: stable & adequate Anesthetic Complications: no major complications apparent
[2019-08-25] MEDS: metroNIDAZOLE 500 MG/100 ML BAG IV SCH ×2 (11:25→19:15)
--- NOTE | 2019-08-25 14:04 | Ultrasound Report ---
ABDOMINAL ULTRASOUND, RIGHT UPPER QUADRANT HISTORY: Right upper quadrant abdominal pain ?gallstones. COMPARISON: Abdomen and pelvis CT 08/23/2019. FINDINGS: Pancreas: The pancreatic tail is obscured by overlying bowel gas. The remaining portions of the pancr eas are within normal limits. Liver: Unremarkable. Gallbladder: No gallbladder wall thickening. No gallstones. A 5 mm gallbladder polyp. CBD: 4 mm. Right kidney: No hydronephrosis. IMPRESSION: No significant abnormality identified within the right upper quadrant. A 5 mm gallbladder polyp. ACT 112: Negative or not required by law. Electronically signed by: Pancho Maria M.D. 08/25/2019 2:03 PM
--- NOTE | 2019-08-25 17:00 | Progress Note ---
DATE: 08/25/2019 SUBJECTIVE: The patient continues to be bothered by abdominal pain. No objective finding was found on CT scan and gallbladder ultrasound, ileoscopy or laboratory to explain her symptoms. There is definitely no signs of active Crohn's disease and she is being tapered off her prednisone. She was started back on 40 mg a day and I would recommend that we taper that off over the next 2 weeks. It is possible that she could have some form of GI infection that is not detected and she has been started on an empiric course of Flagyl for that possibility, which is not unreasonable. She does have an appointment at [facility] on 09/02/2019 with her primary loan manager there. PHYSICAL EXAMINATION: GENERAL: The patient is in no acute distress. VITAL SIGNS: Blood pressure is 111/75, pulse 95, temperature 36.9, O2 saturation on room air is 95%. ABDOMEN: Shows functioning ileostomy in the mid abdomen area with a brown pasty affluent. There is a little bit of tenderness in the suprapubic area, but she is having no urinary symptoms. IMPRESSION AND PLAN: The patient has abdominal pain of unclear etiology with no specific abnormalities found on imaging, endoscopy or lab. She is on empiric trial of Flagyl and will be tapering off her prednisone over the next 2 weeks. At this point, I would continue the prednisone taper and advance her diet as tolerated.
[2019-08-25] MEDS: PROMETHAZINE HCL 6.25 MG in SODIUM CHLORIDE 0.9% 50 ML IV PRN (17:40)
--- NOTE | 2019-08-25 18:44 | Billing Data ---
Date of Service August 25, 2019 Coding Level of Care Code 38092 Subseq Hosp Care Lvl 3
[2019-08-26] MEDS: SODIUM CHLORIDE 0.9% 1000ML 1,000 ML IV SCH ×2 (01:59→15:34)
[2019-08-26] MEDS: metroNIDAZOLE 500 MG/100 ML BAG IV SCH ×2 (01:59→10:35)
[2019-08-26 06:04] LABS: Hematocrit (blood only) 34.6 % (37-47); Hemoglobin 11.2 g/dL (12.0-16.0); Mean Corpuscular Hemoglobin 27.3 pg (25-34); Mean Corpuscular Hgb Conc 32.4 g/dL (32-36); Mean Corpuscular Volume 84.4 fL (80-100); RDW Coefficient of Variation 14.5 % (11.5-14.5); RDW Standard Deviation 44.6 fL (36.4-46.3)
[2019-08-26 06:12] LABS: Mean Platelet Volume 9.7 fL (7.4-10.4); Platelet Count 55 K/uL (130-400)
[2019-08-26 06:36] LABS: Eosinophils # (auto) 0.01 K/uL (0-0.5); Eosinophils % (auto) 0.5 %; Giant Platelets 1+; Lymphocytes # (auto) 0.72 K/uL (1.2-3.4); Lymphocytes % (auto) 34.3 %; Monocytes # (auto) 0.17 K/uL (0.11-0.59); Monocytes % (auto) 8.1 %; Neutrophils % (auto) 57.1 %; Ovalocytes 1+
[2019-08-26 06:39] LABS: Calcium 8.1 mg/dl (8.5-10.1); Creatinine Clr Calc Pharmacy 83.8 ml/min; Est GFR (African American) 92.7; Potassium 3.6 mmol/L (3.5-5.1)
[2019-08-26] MEDS: MoRPHine SULFATE 2 MG/ML CARP IV PRN ×2 (07:17→12:57)
--- NOTE | 2019-08-26 08:32 | Hospitalist Progress Note ---
Date of Service August 26, 2019 Assessment & Plan (1) Pancreatitis: 39-year-old female with history of Crohn's disease, CVID, endometriosis, fibromyalgia, migraines presents with abdominal pain. Was found to have lipase of 1568. She has been experiencing symptoms of Crohn's flare for proximally 3 weeks and has been on steroids. Pancreatitis Initially on presentation patient had a lipase of 1568, this resolved fairly quickly repeat lipase was 191. On admission she had diffuse abdominal pain pancreatitis was certainly a possibility. However appears to have resolved pretty quickly and she is currently asymptomatic,Steroids listed as possible cause of pancreatitis, patient currently treated with steroids for Crohn's flare, a small cholelith could also explain this presentation.Initially kept n.p.o., holding home medications, repeat Lipase was 191, Pancreatitis appears to have resolved, will re-start diet with full liquids and advance as tolerated.Lipids/Triglycerides ordered for hypertriglyceridemia as culprit, but no significantly elevations, Triglycerides were mildly elevated but not significantly to be etiology. Since on recent prolonged course of steriods will check A1C to see if steroid induced DM causing dehydration through osmotic diuresis leading to dehydration as possible etiology.no abscess or timmy- inflammatory process seen on CT Abd.Gastroenterology was consulted and performed an ileoscopy yesterday without significant findings. Patient was supposed to be for a small bowel follow-through today however could not tolerate the contrast secondary to a presumed barium enema supposedly causing her explosive diarrhea. Contacted patient's primary GI down in [facility] for further recommendations, they recommended evaluate the patient for a gallstone that may have passed, antibiotics, and pain control. They also instructed the patient to can maintain her currently scheduled follow-up on 09/02 Follow-up gallbladder ultrasound -Demonstrating gallbladder polyp -> etiology of symptoms -Trial of pepto bismol scheduled every 6h Resume prolonged prednisone taper at 50 mg p.o. Started on empiric metronidazole -TX to p.o. today Control pain -morphine converted to tramadol -po tylenol Consulted gastroenterology following recs GERD Patient takes twice daily Protonix at home. -Requesting IV pantoprazole Crohn's flare Patient symptoms have been going on for approximately 3 weeks she has had 2 steroid tapers during that time without significant improvement in her symptoms. Given the duration of her symptoms and lack of meaningful improvement this is most consistent with a Crohn's flare. For her Crohn's disease which she normally receives Stelara every 8 weeks, not due anytime soon, reports receiving approximately 2 weeks ago. -Resume steroids prednisone 40 mg p.o. daily for prolonged taper Consulted GI -Ileoscopy within normal limits patient was unable to tolerate small bowel follow-through -6 mm pancreas cyst on MRI enterography at [place] 11/2018, needs to be followed at [place] for this See above CVID Receives immunoglobulins every 4 to 6 weeks, not due anytime soon Migraines/tremor Patient receives Fremanzumab q. monthly Hold primidone Significant history of allergies PRN Benadryl States that she is tolerated morphine in the past FENa: Regular diet Code Status: Full code DVT PPX: SCDs ambulation PT/OT: Not indicated Dispo: Home pending clinical improvement Beka Cao MD PGY 2, FCM This chart was completed utilizing [employer] voice recognition software. Grammatical errors, random word insertions, pronoun errors, and in complete sentences are an occasional consequence of the system. Any questions or concerns about the content, text, or information contained within the body of this dictation should be addressed directly to the physician for clarification. (2) CVID (common variable immunodeficiency): (3) Endometriosis: (4) Fibromyalgia: (5) Migraine: (6) Raynauds disease: (7) Anxiety: (8) Depression: Supervising Physician Co-Signing Physician Notes I personally examined the patient and verified all vargas points of history and exam, discussed case, and agree with decision making with Dr Cao. pain and nausea continue but eating well. for lunch at all of salmon and veggies. Vitals noted, in general she is awake and alert pleasant no distress. HEENT normocephalic atraumatic mucous membranes moist. Breathing unlabored no accessory muscle use good effort. Abdomen soft nondistended mild tenderness but no guarding, no rebound, no rigidity - less tender than yesterday except for just to the R of her ostomy - where it's about the same. Skin shows no rashes no pallor or icterus. Abdominal painstill seems most likely intestinal. Ultrasound checked to evaluate for any sort of biliary pathology given that she did have a transiently elevated lipase, but as expected it was normal outside of a 5 mm polyp. She still could have theoretically passed a grain of sand sized gallstone, but without any residual biliary findings certainly it would be not worth her while to pursue cholecystectomy for this. More than likely the elevated lipase was a false positive. She does seem to be suffering from some sort of intestinal pain, no noted ileitis on scope, but seems to be improving somewhat with Flagyl and steroidstolerating diet well; try to transition to PO pain meds; continue flagyl and steroids. Gallbladder polypsmall enough to only warrant repeat ultrasound in about a year. Otherwise as above Subjective Patient sitting upright in bed in no acute distress. Patient reports intermittent abdominal pain with associated nausea. Nausea resolved with Phenergan. Patient with numerous requests including contacting her physician in [place] Dr. Cochran, updating her senior information security consultant. Overall given the vagueness of her complaints, and lack of corresponding physical exam findings I am concerned that this patient is ultimately seeking medical attention for a secondary goal along the lines of a Munchhausen's type syndrome. Regardless patient is tolerating her diet, voiding, producing output in her ostomy bag, sleeping well. Pain appears to be adequately controlled at present, patient seems to perseverate on medication absorption secondary to her ileostomy. All questions answered, acute concerns regard to eventual discharge. Physical Exam Physical Exam: General: Middle-aged female lying in bed in no acute distress HEENT: Normocephalic atraumatic Neck: Normal to visual inspection, trachea midline, no significant JVD Cardiac: Clear to auscultation bilaterally without significant murmurs, rubs, gallops, normal S1 normal S2. Negative calf tenderness, negative pedal edema. Respiratory: Clear to auscultation bilaterally with symmetrical chest expansion I did not appreciate significant wheezes, rales, rhonchi GI: Bowel sounds present, soft, nondistended, endorsing tenderness in the right lower quadrant in the left lower quadrant, no rebound, no guarding Neuro: Alert and oriented x4 Psych: Reserved, guarded, emotionally labile Results & Data Vital Signs (Past 12 Hours) Vital Signs Temp Pulse Resp BP Pulse Ox 08/26/19 07:15 36.7 C 65 18 132/82 96 08/25/19 23:05 36.8 C 95 H 16 103/69 95 Laboratory Results 08/26/19 08/26/19 08/26/19 Range/Units 15:36 15:36 05:49 WBC (4.8-10.8) K/uL RBC (4.2-5.4) M/uL Hgb (12.0-16.0) g/dL Hct (37-47) % MCV (80-100) fL MCH (25-34) pg MCHC (32-36) g/dL RDW Std Deviation (36.4-46.3) fL RDW Coeff of Nikkie (11.5-14.5) % Plt Count (130-400) K/uL MPV (7.4-10.4) fL Immature Gran % (Auto) % Neut % (Auto) % Lymph % (Auto) % Ward % (Auto) % Eos % (Auto) % Baso % (Auto) % Immature Gran # (Auto) (0.00-0.02) K/uL Neut # (Auto) (1.4-6.5) K/uL Lymph # (Auto) (1.2-3.4) K/uL Ward # (Auto) (0.11-0.59) K/uL Eos # (Auto) (0-0.5) K/uL Baso # (Auto) (0-0.2) K/uL Giant Platelets Ovalocytes Sodium 141 (136-145) mmol/L Potassium 3.6 (3.5-5.1) mmol/L Chloride 107 (98-107) mmol/L Carbon Dioxide 29 (21-32) mmol/L Anion Gap 4.0 (3-11) BUN 16 D (7-18) mg/dl Creatinine 0.90 (0.6-1.2) mg/dl Est Cr Clr Drug Dosing 83.8 ml/min Est GFR ( Amer) 92.7 Est GFR (Non-Af Amer) 80.0 BUN/Creatinine Ratio 18.0 (10-20) Glucose 115 H (70-99) mg/dl Calcium 8.1 L (8.5-10.1) mg/dl Ur Newton Porphobilinogen Pending U Porphobilinogen Intrp Pending Ur Total Porphyrins Pending Random Uroporphyrins I Pending Random Uroporphyrin III Pending U Rdm Heptacarboxylpor Pending U Rndm Hexacarboxylpor Pending U Rdm Pentacarboxylpor Pending U Random Coproporphyr I Pending U Rndm Coproporphyr III Pending Ur Porphyrins Interp Pending 08/26/19 Range/Units 05:49 WBC 2.10 L (4.8-10.8) K/uL RBC 4.10 L (4.2-5.4) M/uL Hgb 11.2 L (12.0-16.0) g/dL Hct 34.6 L (37-47) % MCV 84.4 (80-100) fL MCH 27.3 (25-34) pg MCHC 32.4 (32-36) g/dL RDW Std Deviation 44.6 (36.4-46.3) fL RDW Coeff of Nikkie 14.5 (11.5-14.5) % Plt Count 55 L (130-400) K/uL MPV 9.7 (7.4-10.4) fL Immature Gran % (Auto) 0.0 % Neut % (Auto) 57.1 % Lymph % (Auto) 34.3 % Ward % (Auto) 8.1 % Eos % (Auto) 0.5 % Baso % (Auto) 0.0 % Immature Gran # (Auto) 0.00 (0.00-0.02) K/uL Neut # (Auto) 1.20 L (1.4-6.5) K/uL Lymph # (Auto) 0.72 L (1.2-3.4) K/uL Ward # (Auto) 0.17 (0.11-0.59) K/uL Eos # (Auto) 0.01 (0-0.5) K/uL Baso # (Auto) 0.00 (0-0.2) K/uL Giant Platelets 1+ Ovalocytes 1+ Sodium (136-145) mmol/L Potassium (3.5-5.1) mmol/L Chloride (98-107) mmol/L Carbon Dioxide (21-32) mmol/L Anion Gap (3-11) BUN (7-18) mg/dl Creatinine (0.6-1.2) mg/dl Est Cr Clr Drug Dosing ml/min Est GFR ( Amer) Est GFR (Non-Af Amer) BUN/Creatinine Ratio (10-20) Glucose (70-99) mg/dl Calcium (8.5-10.1) mg/dl Ur Newton Porphobilinogen U Porphobilinogen Intrp Ur Total Porphyrins Random Uroporphyrins I Random Uroporphyrin III U Rdm Heptacarboxylpor U Rndm Hexacarboxylpor U Rdm Pentacarboxylpor U Random Coproporphyr I U Rndm Coproporphyr III Ur Porphyrins Interp Medications Administered Current Inpatient Medications Acetaminophen (Tylenol) 1,000 mg PO Q8H PRN PRN Reason: Pain or Fever Stop: 09/25/19 15:44 Heparin Sodium (Porcine) (Heparin Sod 100 Unit/Ml Flush) 5 ml FLUSH PRN PRN PRN Reason: Flush Stop: 09/22/19 17:49 Last Admin: 08/23/19 22:45 Dose: 5 ml Documented by: Sodium Chloride (Nss 1000ml) 1,000 mls @ 80 mls/hr IV .[id number] JAZ Stop: 09/23/19 00:00 Last Admin: 08/26/19 15:34 Dose: 80 mls/hr Documented by: Promethazine HCl 6.25 mg/ (Sodium Chloride) 50.25 mls @ 201 mls/hr IV Q6H PRN PRN Reason: Nausea And Vomiting Stop: 09/23/19 09:15 Last Infusion: 08/26/19 09:58 Dose: Infused Documented by: Metronidazole (Flagyl) 500 mg in 100 mls @ 100 mls/hr IV Q8H [facility] Stop: 09/04/19 10:59 Last Infusion: 08/26/19 11:41 Dose: Infused Documented by: Ioversol (Optiray 320 100ml) 94 ml IV ONCE PRN PRN Reason: Interaction Checking Stop: 08/27/19 02:27 Last Admin: 08/23/19 02:28 Dose: 94 ml Documented by: Morphine Sulfate (Morphine Sulfate) 2 mg IV Q3H PRN PRN Reason: Pain Stop: 09/06/19 06:31 Last Admin: 08/26/19 12:57 Dose: 2 mg Documented by: Pantoprazole Sodium (Protonix) 40 mg PO QAM [facility] Stop: 09/22/19 19:44 Last Admin: 08/26/19 08:49 Dose: 40 mg Documented by: Prednisone (Prednisone) 50 mg PO DAILY [facility] Stop: 09/25/19 08:59 Last Admin: 08/26/19 08:49 Dose: 50 mg Documented by: Resident Activity Tracking Resident Involvement: Resident Care Provided Care Provided: Adult Hospital Medicine
[2019-08-26] MEDS: PANTOprazole 40 MG TAB PO SCH (08:49)
[2019-08-26] MEDS: predniSONE 50 MG TAB PO SCH (08:49)
[2019-08-26] MEDS: PROMETHAZINE HCL 6.25 MG in SODIUM CHLORIDE 0.9% 50 ML IV PRN ×2 (09:43→20:02)
--- NOTE | 2019-08-26 15:11 | Gastroenterology Progress Note ---
Date of Service August 26, 2019 Results & Data Vital Signs (Past 12 Hours) Vital Signs Temp Pulse Resp BP BP Pulse Ox 08/26/19 15:07 36.5 C 89 16 130/87 98 08/26/19 07:15 36.7 C 65 18 132/82 96
[2019-08-26] MEDS ORDERED: MoRPHine SULFATE 5 MG/0.25 ML UDP PO PRN (17:18)
[2019-08-26] MEDS: TRAMADOL HCL 50 MG TABLET PO PRN ×2 (18:03→23:44)
[2019-08-26] MEDS: BISMUTH SUBSALICYLATE SUSP PO SCH ×2 (18:09→23:41)
--- NOTE | 2019-08-26 18:45 | Billing Data ---
Date of Service August 26, 2019 Coding Level of Care Code 66899 Subseq Hosp Care Lvl 3
[2019-08-26] MEDS: FAMOTIDINE 20 MG in SYRINGE 3 ML IV SCH (20:00)
[2019-08-26] MEDS ORDERED: metroNIDAZOLE 250 MG TAB PO SCH (21:00)
[2019-08-26] MEDS: ACETAMINOPHEN 500 MG TAB PO PRN (22:29)
[2019-08-27] MEDS ORDERED: MoRPHine SULFATE 5 MG/0.25 ML UDP PO ONE (01:19)
[2019-08-27] MEDS ORDERED: ACETAMINOPHEN 1,000 MG/100 ML VIAL IV PRN ×2 (01:20→19:00)
[2019-08-27] MEDS: SODIUM CHLORIDE 0.9% 1000ML 1,000 ML IV SCH ×2 (01:59→13:22)
[2019-08-27] MEDS: BISMUTH SUBSALICYLATE SUSP PO SCH ×3 (06:04→17:27)
--- NOTE | 2019-08-27 07:24 | Hospitalist Progress Note ---
Date of Service August 27, 2019 Assessment & Plan (1) Pancreatitis: 39-year-old female with history of Crohn's disease, CVID, endometriosis, fibromyalgia, migraines presents with abdominal pain. Was found to have lipase of 1568. She has been experiencing symptoms of Crohn's flare for proximally 3 weeks and has been on steroids. Pancreatitis Initially on presentation patient had a lipase of 1568, this resolved fairly quickly repeat lipase was 191. On admission she had diffuse abdominal pain pancreatitis was certainly a possibility. However appears to have resolved pretty quickly and she is currently asymptomatic,Steroids listed as possible cause of pancreatitis, patient currently treated with steroids for Crohn's flare, a small cholelith could also explain this presentation.Initially kept n.p.o., holding home medications, repeat Lipase was 191, Pancreatitis appears to have resolved, will re-start diet with full liquids and advance as tolerated.Lipids/Triglycerides ordered for hypertriglyceridemia as culprit, but no significantly elevations, Triglycerides were mildly elevated but not significantly to be etiology. Since on recent prolonged course of steriods will check A1C to see if steroid induced DM causing dehydration through osmotic diuresis leading to dehydration as possible etiology.no abscess or timmy- inflammatory process seen on CT Abd.Gastroenterology was consulted and performed an ileoscopy yesterday without significant findings. Patient was supposed to be for a small bowel follow-through today however could not tolerate the contrast secondary to a presumed barium enema supposedly causing her explosive diarrhea. Contacted patient's primary GI down in [facility] for further recommendations, they recommended evaluate the patient for a gallstone that may have passed, antibiotics, and pain control. They also instructed the patient to can maintain her currently scheduled follow-up on 09/02 Follow-up gallbladder ultrasound -Demonstrating gallbladder polyp -> etiology of symptoms -Trial of pepto bismol scheduled every 6h Resume prolonged prednisone taper at 50 mg p.o. Started on empiric metronidazole -TX to p.o. today Control pain -See subjective -po tramadol -po tylenol Consulted gastroenterology following recs GERD Patient takes twice daily Protonix at home. -Requesting IV pantoprazole Crohn's flare Patient symptoms have been going on for approximately 3 weeks she has had 2 steroid tapers during that time without significant improvement in her symptoms. Given the duration of her symptoms and lack of meaningful improvement this is most consistent with a Crohn's flare. For her Crohn's disease which she normally receives Stelara every 8 weeks, not due anytime soon, reports receiving approximately 2 weeks ago. -Resume steroids prednisone 40 mg p.o. daily for prolonged taper Consulted GI -Ileoscopy within normal limits patient was unable to tolerate small bowel follow-through -6 mm pancreas cyst on MRI enterography at [place] 11/2018, needs to be followed at [place] for this See above CVID Receives immunoglobulins every 4 to 6 weeks, not due anytime soon Migraines/tremor Patient receives Fremanzumab q. monthly Hold primidone Significant history of allergies PRN Benadryl States that she is tolerated morphine in the past FENa: Regular diet Code Status: Full code DVT PPX: SCDs ambulation PT/OT: Not indicated Dispo: Stable for discharge Beka Cao MD PGY 2, FCM This chart was completed utilizing [employer] voice recognition software. Grammatical errors, random word insertions, pronoun errors, and in complete sentences are an occasional consequence of the system. Any questions or concerns about the content, text, or information contained within the body of this dictation should be addressed directly to the physician for clarification. (2) CVID (common variable immunodeficiency): (3) Endometriosis: (4) Fibromyalgia: (5) Migraine: (6) Raynauds disease: (7) Anxiety: (8) Depression: Supervising Physician Co-Signing Physician Notes I personally examined the patient and verified all vargas points of history and exam, discussed case, and agree with decision making with Dr Cao. eating better and pain better but still fairly bad. extensive discussions with GI, input appreciated. pt feeling concerned about pain in the shelter. mother present as well. Vitals noted, in general she is awake and alert pleasant no distress. HEENT normocephalic atraumatic mucous membranes moist. Breathing unlabored no accessory muscle use good effort. Abdomen soft nondistended mild tenderness but no guarding, no rebound, no rigidity - on more superficial evaluation of abdominal wall she does show (+) multiple trigger points that are quite tender to palpation Abdominal painwith identification of trigger points (common in IBD) seems there may be two factors at play - infection/inflammation (flagyl and steroids) and trigger points. discussed dx w pt and mom at length and discussed management -- injection, topicals, often nerve-stabilizing pain meds (she notes no help from gabapentin, and delusions from lyrica) -- more than willing for injections - discussed in hospital dry needling by me (with some limitations) or injection in office with pain management who does all the time - reached out to pain who felt they could work her in fairly quickly. GI ok w topical diclofenac Gallbladder polypsmall enough to only warrant repeat ultrasound in about a year. Otherwise as above Subjective The patient was lying in bed this morning comfortably in no acute distress, playing on her cell phone. Immediately upon me walking into the room the patient began endorsing abdominal pain. Patient stating she had a horrible night and her pain was poorly controlled. She stated she stopped taking tramadol in college because "that stuff does not do anything to me ", however she reported taking it because it was the only thing available to her. She reported she was in 10 out of 10 pain frequently having the nurse contact the night physician until he provided her with p.o. morphine. upon review of records there is absolutely no objective evidence of this, she is not tachycardic, she is not hypertensive, she is not tachypneic, she was not febrile. For the most part over the past few days we have entertained this patient's every request. Have conferenced with her doctor in [place] who indicated she is likely stable for discharge days ago. An ileostomy was performed demonstrating no evidence of active disease and was completely within normal limits. Upon review of her records from [place] she has presented to the inflammatory bowel disease center on multiple occasions throughout 2018 with similar complaints as to this admission. Stating her Crohn's disease was inadequately controlled. The physicians at that time had attempted therapy without success. The patient was requesting escalation of her pain medication to in clude opiate narcotics at that time. They had arranged for her to see pain management in [place] who she was already seeing for chronic migraines. They reiterated to her numerous times that narcotics were not a good option for pain management in the setting of IBD. They discussed a trial of acupuncture, they discussed counseling, and potentially CBT. Physical Exam Physical Exam: Deferred see attending attestation. Results & Data Vital Signs (Past 12 Hours) Vital Signs Temp Pulse Resp BP Pulse Ox 08/26/19 23:20 36.8 C 84 17 123/77 97 Resident Activity Tracking Resident Involvement: Resident Care Provided Care Provided: Adult Hospital Medicine
[2019-08-27] MEDS: predniSONE 50 MG TAB PO SCH (08:50)
[2019-08-27] MEDS: FAMOTIDINE 20 MG in SYRINGE 3 ML IV SCH ×2 (08:50→20:36)
[2019-08-27] MEDS: metroNIDAZOLE 500 MG TAB PO SCH ×3 (09:35→20:36)
[2019-08-27] MEDS: ACETAMINOPHEN 500 MG TAB PO PRN (11:28)
[2019-08-27] MEDS: TRAMADOL HCL 50 MG TABLET PO PRN ×2 (14:29→22:25)
--- NOTE | 2019-08-27 17:54 | Progress Note ---
DATE: 08/27/2019 The patient continues to have episodic abdominal pain. Her vital signs are normal. She had urine sent for porphyrin screen yesterday, which will be sent to reference lab and may take a few days to come back. I discussed her case with Dr. Arteaga and we are concerned about her ongoing symptoms without objective findings and he thinks that she may have trigger points in her abdomen on physical exam when he examined her and thinks it may be worthwhile referring her for trigger point injections to see if it helps. This is certainly not unreasonable and may limit her use of pain medication. We are trying to wean her on to Tylenol alone and I recommended a maximum dose of 2 grams a day to prevent liver disease. We will await the results of her porphyrin screen. If it is positive, we will get the genetic test as an outpatient and she can follow up with her IBD specialist at [place] on 09/02, but at this time there are no signs of active inflammatory bowel disease.
--- NOTE | 2019-08-27 18:39 | Billing Data ---
Date of Service August 27, 2019 Coding Level of Care Code 87897 Subseq Hosp Care Lvl 3
[2019-08-27] MEDS ORDERED: DICLOFENAC SOD 1% GEL 100 GM TUBE EXT STA (21:56)
[2019-08-28] MEDS: BISMUTH SUBSALICYLATE SUSP PO SCH ×4 (00:36→12:02)
[2019-08-28] MEDS: SODIUM CHLORIDE 0.9% 1000ML 1,000 ML IV SCH (01:45)
[2019-08-28] MEDS ORDERED: CALCIUM CARBONATE 500 MG CHEWABLE TAB PO PRN (07:07)
--- NOTE | 2019-08-28 08:33 | Billing Data ---
Date of Service August 27, 2019 Coding Level of Care Code 38984 Prolonged Care (int'l)
[2019-08-28] MEDS ORDERED: predniSONE 20 MG TAB PO SCH (09:00)
[2019-08-28] MEDS: FAMOTIDINE 20 MG in SYRINGE 3 ML IV SCH (09:04)
[2019-08-28] MEDS: HEPARIN 100 UNIT/ML 5ML FLUSH FLUSH PRN (09:05)
[2019-08-28] MEDS: DICLOFENAC SOD 1% GEL 100 GM TUBE EXT SCH ×2 (09:05→13:33)
[2019-08-28] MEDS: metroNIDAZOLE 500 MG TAB PO SCH ×2 (09:05→13:32)
--- NOTE | 2019-08-28 09:49 | Discharge Summary ---
Date of Service August 28, 2019 Admission HPI Per Admitting Provider 39-year-old female with history of Crohn's disease, CVID, endometriosis, fibromyalgia, migraines presents with abdominal pain. States that the pain is been ongoing for the past 3 weeks as she is been treated with steroids for a Crohn's flare. Her symptoms of included diarrhea, mouth ulcers, bloody stools and abdominal pain. She states that the abdominal pain is predominantly on the right side. She feels that the incident was exacerbated by a recent viral illness that she had. She denies any fevers, chills, night sweats. Admission Exam Per Admitting Provider Constitutional: WD/WN, vitals as above Eyes: PERRL, conjunctivae normal, anicteric sclerae ENMT: external ear and nose normal, oropharynx normal Neck: trachea midline, no thyromegaly Respiratory: normal respiratory effort, lungs clear to auscultation Cardiovascular: RRR, no murmur, no edema Gastrointestinal (Abdomen): Inspection/Auscultation: normal bowel sounds; + abdomen abnormal to inspection (colostomy on right ) and abdomen not distended Percussion/Palpation: + abdomen tender (predominently on right ); no guarding and abdomen not rigid Musculoskeletal: no cyanosis or clubbing, extremities motor strength 5/5 Skin: no rashes, warm and dry Neurologic: PERRL, EOMI, accommodation nl, no face palsy, no dysarthria Psychiatric: A+Ox3, euthymic affect Principal Diagnosis Abdominal pain - multifactorial Discharge Exam Constitutional well developed, well nourished, cooperative and comfortable; not ill appearing Eyes PERRL, conjunctivae normal, anicteric sclerae ENMT external ear and nose normal, oropharynx normal Respiratory normal respiratory effort, lungs clear to auscultation Cardiovascular RRR, no murmur, no edema Gastrointestinal (Abdomen) Inspection/Auscultation: + abdomen abnormal to inspection (colostomy on right ) Percussion/Palpation: + abdomen tender (several identifiable trigger points throughout palpation of abdominal wall) and abdomen soft Discharge Data Allergies Allergy/AdvReac Type Severity Reaction Status Date / Time bee venom protein (honey bee) Allergy Severe anaphylaxis Verified 08/22/19 22:29 clarithromycin Allergy Severe breathing Verified 08/22/19 22:29 problems adhesive Allergy Intermediate itching, Verified 08/22/19 22:29 swelling hydromorphone Allergy Intermediate RASH Verified 08/22/19 22:29 latex Allergy Intermediate itching, Verified 08/22/19 22:29 swelling ondansetron Allergy Intermediate itching Verified 08/22/19 22:29 peanut Allergy Intermediate Rash and Verified 08/22/19 22:29 itchiness albuterol Allergy Mild rash Verified 08/22/19 22:29 hydroxyzine Allergy Mild itching Verified 08/22/19 22:29 oxycodone Allergy Mild itching Verified 08/22/19 22:29 ketorolac Allergy Unknown unknown Verified 08/22/19 22:29 shellfish derived Allergy Verified 08/24/19 13:34 barium sulfate AdvReac Intermediate diarrhea Verified 08/22/19 22:29 pregabalin AdvReac Intermediate delusions Verified 08/22/19 22:29 sucralose AdvReac Mild Nausea Verified 08/22/19 22:29 [From Splenda (sucralose)] Lobster AdvReac Intermediate nausea, Uncoded 08/22/19 22:29 diarrhea Consultations 08/23/19 04:28 ED Decision to Admit Stat 08/23/19 06:32 Consult Gastroenterology Routine Procedures Performed Operation Date: 08/24/19 17:25 Actual Procedures p Ileoscopy - Dustin Traylor Ordered Studies 08/22/19 23:03 CT abd pelvis oral and IV con Urgent 08/25/19 10:38 US abdomen limited Urgent Hospital Course (1) Pancreatitis: Ms. Geronimo is a 39-year-old female with history of Crohn's disease, CVID, endometriosis, fibromyalgia, migraines presents with abdominal pain. Abdominal Pain - multifactorial Initially on presentation, she had diffuse abdominal pain, and symptoms were felt to be due to pancreatitis given the patient had a lipase of 1568, this resolved fairly quickly and her repeat lipase was 191. Given her pain persisted despite the normalization in her lipase, other causes were sought out. Gastroenterology was consulted and performed an ileoscopy to determine if her symptoms were related to Crohn's disease, but without significant findings. Patient was then meant to have a small bowel follow-through to rule out an obstruction, however could not tolerate the contrast secondary to a presumed barium enema supposedly causing her explosive diarrhea. Her primary GI in [facility] was contacted for further recommendations. They recommended evaluating the patient for a gallstone that may have passed, antibiotics, and pain control. They also instructed the patient to can maintain her currently scheduled follow-up on 09/02 Follow-up gallbladder ultrasound - Demonstrated a 5mm gallbladder polyp - recommend f/u US in 1 year to reassess Resumed prolonged prednisone taper, starting at 50 mg p.o. -> d/c on 30 mg x 2 days, 20mg x 2 days, 15mg x 2 days, 10mg x 2 days, 5mg x 2 days, 1mg x 2 days and then stop Started on empiric metronidazole x 7 days - several trigger points identified on examination of patient's abdomen - very likely contributing to her pain -> f/u being organized with pain management clinic for injections -> voltaren gel TID-QID GERD -continue home protonix Crohn's flare -normally receives Stelara every 8 weeks. -steroid taper as above Consulted GI -Ileoscopy within normal limits patient was unable to tolerate small bowel follow-through -6 mm pancreas cyst on MRI enterography at [place] 11/2018, needs to be followed at [place] for this CVID Receives immunoglobulins every 4 to 6 weeks Migraines/tremor Patient receives Fremanzumab q. monthly -resume home primidone (2) CVID (common variable immunodeficiency): (3) Endometriosis: (4) Fibromyalgia: (5) Migraine: (6) Raynauds disease: (7) Anxiety: (8) Depression: Total Time Total Time Spent Total Time Spent (In Minutes): <30 Discharge Plan Discharge Items Patient Disposition: Home - Self-Care Reason For Visit: PANCREATITIS, CROHN'S FLARE Discharge Diagnosis: Abdominal Pain Activity: Resume your previous activity Non-emergency contact: Primary Care Provider Call non-emergency contact if: you have any medication questions, your symptoms worsen and your temperature is above 101 Follow-up/Referrals: Jeri Molina DO [Primary Care Provider] - Diet: Regular Addtl Attending Provider Instructions: Doretha Juanpablo, you were admitted to [facility] due to abdominal pain. We suspect that the cause of your pain is multifactorial: 1) Infectious/inflammation -in case part of your symptoms are due to a smouldering abdominal infection, we treated you with IV flagyl, and will be sending you home with 3 more days of oral flagyl to take to complete the course. Please take your first dose tonight, and then continue taking them every 8 hours until the tablets are finished -given the fact that you have needed steroids in the past for flare ups, we will be sending you home on a prolonged taper of prednisone. The regimen is as follows: Please take 30 mg x 2 days, 20mg x 2 days, 15mg x 2 days, 10mg x 2 days, 5mg x 2 days, 1mg x 2 days and then stop The tablets come in 5mg pills, and then there is a separate prescription for 1mg tablets for your last 2 days 2) Trigger points -your examination showed several palpable trigger points, which are essentially knots in your muscles that can cause a considerable amount of pain -we will be setting up an appointment for you with pain management to treat these - if you do not hear from them regarding an appointment in the next 24-48 hours, please give them a call -in the meantime, please use the voltaren gel 3-4 times a day, consistently, to help with your pain Pending Studies at Discharge: Yes Stand-Alone Forms: Call Back Authorization, [facility], Smoking Cessation Medications and DC Order Prescriptions: New metronidazole 500 mg Tablet 500 mg PO TID 3 Days Qty: 10 RF: 0 diclofenac sodium [Voltaren] 1 % Gel 2 g EXT QID 30 Days Qty: 100 RF: 2 prednisone 5 mg tablet 5 mg PO UD 10 Days Qty: 10 RF: 0 prednisone 1 mg tablet 1 mg PO DAILY 2 Days Qty: 2 RF: 0 Continued fluticasone propionate [Flonase Allergy Relief] 50 mcg/actuation spray,suspension 2 sprays INTNAS DAILY PRN (Reason: Congestion) RF: 0 primidone 50 mg Tablet 100 mg PO BID RF: 0 pantoprazole [Protonix] 40 mg Tablet,Delayed Release (Dr/Ec) 40 mg PO BID PRN (Reason: INDIGESTION/HEARTBURN) RF: 0 Mucinex DM 30-600 mg Tablet Extended Release 12 Hr 1 tab PO Q12H PRN (Reason: Congestion) RF: 0 acetaminophen [Tylenol] 325 mg Tablet 650 mg PO UD PRN (Reason: Pain) RF: 0 diphenhydramine HCl [Benadryl] 25 mg Capsule 50 mg PO UD PRN (Reason: PRE-TREAT) RF: 0 ergocalciferol (vitamin D2) [Vitamin D2] 50,000 unit Capsule 50,000 unit PO WK RF: 0 epinephrine [EpiPen] 0.3 mg/0.3 mL Auto-Injector 0.3 mg IM UD PRN (Reason: Allergic Reaction) RF: 0 Gamunex-C 5 gram/50 mL (10 %) Solution 25 g IV Q4WK RF: 0 fremanezumab-vfrm 225 mg/1.5 mL Syringe 225 mg subcut MONTHLY RF: 0 primidone 50 mg Tablet 50 mg PO .MIDDAY RF: 0 Excedrin Tension Headache 500-65 mg Tablet 0 tab PO Q6H PRN (Reason: Headache) RF: 0 Stelara 90 mg/mL syringe 90 mg SUBCUT .[id number] RF: 0 Discontinued Solu-Medrol Solution 0 mg IV UD RF: 0 Discharge Orders: Discharge Order (Routine); Ordered 08/28/19 Ordered By: Evelia Loja Admission Data Admit Date/Time: 08/23/19 05:27 Attending Provider: Edmundo Arteaga Admit Provider: Norberto Mejias Primary Care Provider: Jeri Molina Other Providers: Abner Weir ; Carlos Mccall ; Capo Dumont Other Interventions: Discharge Summary Assessment (RN) Last Done: 08/28/19 14:15 DC Date/Time DO NOT enter until pt leaves facility: 08/28/19 14:38 Supervising Physician Co-Signing Physician Notes I personally examined the patient and verified all vargas points of history and exam, discussed case, and agree with decision making with Dr Loja. Eating okay and pain is stable. Patient comfortable with plan. Vitals noted, in general she is awake and alert pleasant no distress. HEENT normocephalic atraumatic mucous membranes moist. Breathing unlabored no accessory muscle use good effort. No rashes no pallor or icterus. Abdominal painwith identification of trigger points (common in IBD) seems there may be two factors at play - infection/inflammation (flagyl and steroids) and trigger points. Topical diclofenac for now, referral to pain management for injection. She notes difficulties with pregabalin and no benefit with gabapentin in the pasttherefore will defer to pain management as far as any type of pain medications given that she will be following up with them. Stable for discharge to home. (Of note discussed topical diclofenac with gastroenterology in the context of her inflammatory bowel disease, and they were okay with this.) Gallbladder polypsmall enough to only warrant repeat ultrasound in about a year. Otherwise as above Resident Activity Tracking Resident Involvement: Resident Care Provided Care Provided: Adult Hospital Medicine
[2019-08-28] MEDS: TRAMADOL HCL 50 MG TABLET PO PRN (10:19)
--- NOTE | 2019-08-28 17:21 | Billing Data ---
Date of Service August 28, 2019 Coding Level of Care Code D/C Day Management <30 mins
[2019-09-01 18:28] LABS: Coproporphyrins I Random Ur 11.8 (6.5-33.2); Coproporphyrins III Random Ur 5.6 (4.8-88.6); Porphyrins Total Urine 51.1 (27.0-153.6)
== END 2019-08-28 14:38 | disposition home or self-care (01) | DRG 439 ==
LOC: ED 21:10 → SUATTDRO 08-23 05:27 → 3W 08-23 05:27